=== PATIENT | female | born 1940 | race Caucasian/White ===

== ENCOUNTER → 2018-01-03 14:04 | Outpatient (CLI) | payer MEDICARE, SELFPAY ==
--- NOTE | 2018-01-03 | CI_ITS ---
Cerebrovascular Exam Indications: 780.4 Vertigo. 780.4 Dizziness and giddiness. IMPRESSIONS 1. The bilateral vertebral arteries are patent with normal antegrade flow. 2. Study suggests less than 20% stenosis involving the right internal carotid artery and the left internal carotid artery. Carotid duplex study. Complete study and Doppler flow study including spectral analysis, color and robertson scale imaging. Height: Height: 160cm. Height: 63in. Weight: Weight: 62.1kg. Weight: 136.7lb. Body mass index: BMI: 24.3kg/m^2. Body surface area: BSA: 1.67m^2. Location: Vascular laboratory. Patient status: Outpatient. Tables: Arterial flow: + +--------+--------+ Location V sys V ed + +--------+--------+ Right CCA - proximal 72.2cm/s 16cm/s + +--------+--------+ Right CCA - distal 56.2cm/s 15.4cm/s + +--------+--------+ Right ECA 69.1cm/s -------- + +--------+--------+ Right ICA - proximal 61.3cm/s 17.7cm/s + +--------+--------+ Right ICA - mid 68.1cm/s 18.8cm/s + +--------+--------+ Right ICA - distal 76.6cm/s 23.8cm/s + +--------+--------+ Right vertebral 54.2cm/s -------- + +--------+--------+ Left CCA - proximal 78.8cm/s 13.6cm/s + +--------+--------+ Left CCA - distal 49.3cm/s 10.8cm/s + +--------+--------+ Left ECA 66.2cm/s -------- + +--------+--------+ Left ICA - proximal 50.6cm/s 14cm/s + +--------+--------+ Left ICA - mid 65.8cm/s 20.3cm/s + +--------+--------+ Left ICA - distal 68.6cm/s 23.9cm/s + +--------+--------+ Left vertebral 63.8cm/s -------- + +--------+--------+ Velocity ratios: + + + + + + Right, V sys Right, V ed Left, V sys Left, V ed + + + + + + Max ICA/dist CCA 1.36 1.55 1.39 2.21 + + + + + + (Report amended ) Electronically signed by: Elvin Luna [id number]
== END ==
PROVIDERS: Family Provider Family Medicine; PCP Family Medicine; Visit Provider Family Medicine
DX: I10 Essential (primary) hypertension; G45.8 Other transient cerebral ischemic attacks and related syndromes
CPT/HCPCS: 93880

== ENCOUNTER → 2018-06-09 14:28 | Outpatient (CLI) | payer MEDICARE, SELFPAY ==
--- NOTE | 2018-06-09 14:33 | XR_ITS ---
XR chest 2V HISTORY: ITS.REASON: DECREASED BREATH SOUNDS ORDERING PHYSICIAN: Malini Espitia MD PATIENT AGE: 77 years COMPARISON: 07/19/2014 FINDINGS: The cardiomediastinal silhouette and pulmonary vascularity are within normal limits. The lungs are clear without infiltrates, suspicious nodules, or pleural effusions. No acute bony abnormalities. 12 mm opacity once again noted over the mid thoracic spine unchanged IMPRESSION: No change with no acute finding
== END ==
PROVIDERS: PCP Family Medicine; Visit Provider Emergency Medicine
DX: R06.89 Other abnormalities of breathing (principal)
CPT/HCPCS: 71046

== ENCOUNTER → 2018-09-26 13:06 | Outpatient (CLI) | payer MEDICARE, SELFPAY ==
--- NOTE | 2018-09-26 13:26 | CT_ITS ---
CT sinus wo con CLINICAL INDICATION: ITS.REASON: FACIAL PAIN,SINUSITIS ORDERING PHYSICIAN: Edson Pendleton MD PATIENT AGE: 78 years COMPARISON: None TECHNIQUE:Axial images obtained with sagittal and coronal reformats. All CT scans at the facility use one or more dose reduction, viz: automated exposure control, ma/kV adjustment per patient size (including targeted exams where dose is matched to indication, i.e. head), or iterative reconstruction technique. FINDINGS: No sinus air-fluid level or significant paranasal sinus mucosal thickening is evident. There is mild mucosal thickening of the inferior wall the left maxillary sinus. The ostiomeatal units are patent. There is mild leftward nasal septal deviation. The frontal, ethmoid, right maxillary sinus and sphenoid sinuses have an unremarkable appearance. There are mild osteoarthritic changes of the right TMJ joint. No acute fracture or dislocation. No lytic changes evident. The orbits have an unremarkable appearance. Incidental note is made of bony exostosis of the hard palate i.e. torus palatinus. IMPRESSION: 1. Essentially unremarkable sinuses. 2. Mild leftward nasal septal deviation. 3. Mild right TMJ arthropathy. 4. Incidental torus palatinus
== END ==
PROVIDERS: PCP Family Medicine; Visit Provider Family Medicine
DX: J32.0 Chronic maxillary sinusitis (principal); R51 Headache
CPT/HCPCS: 70486

== ENCOUNTER → 2021-01-11 14:08 | Outpatient (CLI) | payer MEDICARE, SELFPAY ==
[2021-01-11 14:48] LABS: Basophils % 0.4 % (0.1-2.0); Eosinophils # 0.1 K/mm3 (0.0-0.4); Eosinophils % 2.5 % (0.1-12.0); Hematocrit 33.4 % (37.0-47.0); Hemoglobin 11.4 g/dL (12.2-16.2); Lymphocytes # 0.8 K/mm3 (0.7-4.5); Lymphocytes % 15.9 % (10-50); Mean Corpuscular HGB Conc 34.2 g/dL (31.8-35.4); Mean Corpuscular Hemoglobin 31.1 pg (27.0-31.2); Mean Corpuscular Volume 90.7 fl (81-99); Mean Platelet Volume 7.6 fl (7.4-10.4); Monocytes # 0.3 K/mm3 (0.1-1.0); Neutrophils # 3.9 K/mm3 (1.8-7.8); Neutrophils % 75.3 % (37.0-80.0); Platelet Count 237 K/mm3 (142-424); Red Blood Count 3.68 M/mm3 (4.20-5.40); Red Cell Distribution Width 14.2 % (11.5-17.5); White Blood Count 5.2 K/mm3 (4.8-10.8)
[2021-01-11 15:11] LABS: Chloride 106 mmol/L (98-107)
[2021-01-11 15:12] LABS: Potassium 4.3 mmoL/L (3.5-5.1); Sodium 140 mmol/L (136-145)
[2021-01-11 15:14] LABS: Blood Urea Nitrogen 30 mg/dl (7-17); Estimated Glomerular Filt Rate 33 ml/min (>60); GFR (African American) 40 ML/MIN (>60)
[2021-01-11 15:15] LABS: Alanine Aminotransferase 15 U/L (12-78); Albumin Level 4.2 g/dl (3.5-5.0); Albumin/Globulin Ratio 1.8 (1.1-1.8); Alkaline Phosphatase 44 U/L (38-126); Anion Gap 11.3 mEq/L (5-15); Aspartate Amino Transferase 27 U/L (14-36); Bilirubin,Total 0.3 mg/dl (0.2-1.3); Calcium 8.8 mg/dl (8.4-10.2); Carbon Dioxide 27 mmol/L (22.0-30.0); Globulin 2.3 g/dL (1.3-3.2); Glucose 111 mg/dl (74-100); Total Protein,Serum 6.5 g/dl (6.3-8.2)
[2021-01-11 15:50] LABS: Ferritin 13.4 ng/ml (11.1-264)
[2021-01-11 16:15] LABS: C-Reactive Protein 0.3 mg/L (0-4)
[2021-01-11 16:59] LABS: Vitamin B12 297 pg/mL (239-931)
[2021-01-16 13:16] LABS: Saccharomyces cerevisiae, IgA 224.5 Units (0.0-24.9); Saccharomyces cerevisiae, IgG 61.1 Units (0.0-24.9)
== END ==
PROVIDERS: Visit Provider Internal Medicine Gastroenterology
DX: K50.90 Crohn's disease, unspecified, without complications (principal); D64.9 Anemia, unspecified; R10.32 Left lower quadrant pain
CPT/HCPCS: 36415; 80053; 82607; 82728; 85025; 86140; 86256; 86671

== ENCOUNTER → 2021-03-27 11:21 | Outpatient (CLI) | payer MEDICARE, SELFPAY | PROVIDERS: PCP Family Medicine; Visit Provider Family Medicine | DX: Z20.822 Contact with and (suspected) exposure to COVID-19 (principal) | CPT/HCPCS: C9803; U0003; U0005 ==

== ENCOUNTER → 2021-04-20 13:45 | Outpatient (CLI) | payer MEDICARE, SELFPAY ==
[2021-04-20 14:02] LABS: Basophils # 0.1 K/mm3 (0-0.2); Eosinophils # 0.1 K/mm3 (0.0-0.4); Eosinophils % 2.8 % (0.1-12.0); Hematocrit 34.5 % (37.0-47.0); Hemoglobin 11.2 g/dL (12.2-16.2); Lymphocytes # 0.7 K/mm3 (0.7-4.5); Lymphocytes % 14.7 % (10-50); Mean Corpuscular HGB Conc 32.4 g/dL (31.8-35.4); Mean Corpuscular Hemoglobin 31.5 pg (27.0-31.2); Mean Corpuscular Volume 97.4 fl (81-99); Mean Platelet Volume 9.1 fl (7.4-10.4); Monocytes # 0.3 K/mm3 (0.1-1.0); Monocytes % 6.4 % (1.7-9.3); Neutrophils # 3.7 K/mm3 (1.8-7.8); Neutrophils % 75.2 % (37.0-80.0); Platelet Count 256 K/mm3 (142-424); Red Blood Count 3.55 M/mm3 (4.20-5.40)
[2021-04-20 14:43] LABS: Chloride 105 mmol/L (98-107); Sodium 139 mmol/L (136-145)
[2021-04-20 14:44] LABS: Potassium 4.3 mmoL/L (3.5-5.1)
[2021-04-20 14:46] LABS: Alanine Aminotransferase 14 U/L (12-78); Albumin Level 3.8 g/dl (3.5-5.0); Albumin/Globulin Ratio 1.7 (1.1-1.8); Alkaline Phosphatase 52 U/L (38-126); Anion Gap 11.3 mEq/L (5-15); Aspartate Amino Transferase 24 U/L (14-36); Blood Urea Nitrogen 22 mg/dl (7-17); Carbon Dioxide 27 mmol/L (22.0-30.0); Estimated Glomerular Filt Rate 39 ml/min (>60); GFR (African American) 47 ML/MIN (>60); Globulin 2.3 g/dL (1.3-3.2); Total Protein,Serum 6.1 g/dl (6.3-8.2)
[2021-04-20 14:47] LABS: Bilirubin,Total < 0.1 mg/dl (0.2-1.3); Calcium 8.8 mg/dl (8.4-10.2); Glucose 93 mg/dl (74-100)
[2021-04-20 14:55] LABS: C-Reactive Protein < 0.3 mg/L (0-4)
[2021-04-20 14:56] LABS: Total Iron Binding Capacity 573 ug/dL (265-497)
[2021-04-20 15:22] LABS: Ferritin 5.85 ng/ml (11.1-264)
[2021-04-20 16:21] LABS: Vitamin B12 898 pg/mL (239-931)
== END ==
PROVIDERS: Visit Provider Internal Medicine Gastroenterology
DX: K50.90 Crohn's disease, unspecified, without complications (principal); D64.9 Anemia, unspecified
CPT/HCPCS: 36415; 80053; 82607; 82728; 83550; 85025; 86140

== ENCOUNTER → 2021-07-24 10:30 | Outpatient (CLI) | payer MEDICARE, SELFPAY | PROVIDERS: PCP Family Medicine; Visit Provider Nurse Practitioner | DX: Z20.822 Contact with and (suspected) exposure to COVID-19 (principal) | CPT/HCPCS: C9803; U0003; U0005 ==

== ENCOUNTER → 2021-09-06 13:31 | Outpatient (CLI) | payer MEDICARE, SELFPAY | PROVIDERS: PCP Family Medicine; Visit Provider Nurse Practitioner | DX: Z20.822 Contact with and (suspected) exposure to COVID-19 (principal) | CPT/HCPCS: C9803; U0003; U0005 ==

== ENCOUNTER → 2022-05-15 14:42 | Outpatient (POV) | payer MEDICARE, SELFPAY | PROVIDERS: Visit Provider Dermatology | DX: Z00.00 Encounter for general adult medical examination without abnormal findings (principal) ==

== ENCOUNTER 2022-10-23 15:00 | Outpatient (RCR) | payer MEDICARE, SELFPAY ==
--- NOTE | 2022-09-26 16:50 | HMH.PTOPEV ---
PT Outpatient Evaluation Rehab PT Outpatient Evaluation Start: 09/26/22 16:32 Freq: Status: Active Protocol: Document 09/26/22 16:32 IVY (Rec: 09/26/22 16:50 IVY [id number]) E-signed By Jonnie Styles, PT Outpatient Therapy Subjective History Subjective History Patient is an 82 year old female presenting to outpatient PT with reports of L posterior hip/buttock pain that radiates to the L anterior thigh and ankle. Symptom onset 08/22/22 while performing overhead reaching/ lifting activities at the grocery store. She has received previous injections x 2 that have provided some significant relief. Patient reports symptoms are worse at night. Comorbidities include hx of HTN, HL, chrons diseases with multiple small and large intestine resection surgeries , tuberculosis and cholecystectomy. Chief Complaint Pain Symptom Type Ache,Shooting Symptoms Relieved By Heat,Prescription Meds Symptoms Aggravated By Sitting,Standing,Bending/ Stooping,Physical Activity, Walking,Lifting Prior Functional Limitations None Current Functional Limitations Reaching,Lifting,Housework, Standing,Walking,Bending/ Stooping Symptom Description Constant but Variable Level of pain today (0-10) 5 Pain scale - at its best (0-10) 3 Pain scale - at its worst (0-10) 5 Hip/Knee Eval Gait Observation General Gait Pattern Observation No Deviations/Normal Palpation Tenderness left Knee Palpation Overall Comment Posterior hip/buttock mm, greater trochanter 3/4 Hip Palpation Findings Tenderness MMT Hip Flexion Strength Grade 4 Good Hip Abduction Strength Grade 4 Good Hip Adduction Strength Grade 5 Normal Hip Extension Strength Grade 5 Normal Hip External Rotation Strength Grade 4- Good- Hip Internal Rotation Strength Grade 4- Good- Knee Extension Strength Grade 5 Normal Knee Flexion Strength Grade 5 Normal ROM Hip Flexion w/Knee Extended Active Range 92 of Motion (degrees) Hip Abduction Active Range of Motion ( 38 degrees) Hip Extension Active
== END 2022-10-23 15:05 | disposition home or self-care (01) ==
LOC: PT 15:00
PROVIDERS: PCP Family Medicine; Visit Provider Physician Assistant
DX: G57.02 Lesion of sciatic nerve, left lower limb (principal)
CPT/HCPCS: 97010; 97014; 97110; 97163; G0283

== ENCOUNTER → 2023-05-22 16:09 | Outpatient (CLI) | payer MEDICARE, SELFPAY ==
[2023-05-22 16:46] LABS: Basophils % 0.5 % (0.1-2.0); Eosinophils # 0.2 K/mm3 (0.0-0.4); Eosinophils % 3.4 % (0.1-12.0); Hematocrit 35.1 % (37.0-47.0); Hemoglobin 11.8 g/dL (12.2-16.2); Lymphocytes # 0.8 K/mm3 (0.7-4.5); Mean Corpuscular HGB Conc 33.8 g/dL (31.8-35.4); Mean Corpuscular Hemoglobin 32.1 pg (27.0-31.2); Mean Corpuscular Volume 95.2 fl (81-99); Mean Platelet Volume 7.7 fl (7.4-10.4); Monocytes # 0.2 K/mm3 (0.1-1.0); Monocytes % 4.6 % (1.7-9.3); Neutrophils # 3.4 K/mm3 (1.8-7.8); Neutrophils % 74.5 % (37.0-80.0); Platelet Count 261 K/mm3 (142-424); Red Blood Count 3.68 M/mm3 (4.20-5.40); Red Cell Distribution Width 13.7 % (11.5-17.5); White Blood Count 4.6 K/mm3 (4.8-10.8)
[2023-05-22 17:05] LABS: Chloride 105 mmol/L (98-107); Potassium 3.8 mmoL/L (3.5-5.1); Sodium 140 mmol/L (136-145)
[2023-05-22 17:08] LABS: Alanine Aminotransferase 20 U/L (12-78); Albumin Level 4.2 g/dl (3.5-5.0); Albumin/Globulin Ratio 1.8 (1.1-1.8); Alkaline Phosphatase 43 U/L (38-126); Anion Gap 11.8 mEq/L (5-15); Aspartate Amino Transferase 29 U/L (14-36); Bilirubin,Total 0.1 mg/dl (0.2-1.3); Blood Urea Nitrogen 26 mg/dl (7-17); Calcium 8.7 mg/dl (8.4-10.2); Carbon Dioxide 27 mmol/L (22.0-30.0); Estimated Glomerular Filt Rate 31 ml/min (>60); GFR (African American) 37 ML/MIN (>60); Globulin 2.3 g/dL (1.3-3.2); Glucose 89 mg/dl (74-100); Iron 94 ug/dL (37-170); Total Protein,Serum 6.5 g/dl (6.3-8.2)
[2023-05-22 17:17] LABS: Total Iron Binding Capacity 532 ug/dL (265-497)
== END ==
PROVIDERS: PCP Family Medicine; Visit Provider Internal Medicine Medical Oncology
DX: D50.8 Other iron deficiency anemias (principal)
CPT/HCPCS: 36415; 80053; 83540; 83550; 85025

== ENCOUNTER 2024-05-20 09:14 | Outpatient (POV) | payer MEDICARE, SELFPAY | END 2024-05-20 23:59 | disposition home or self-care (01) | LOC: SC 09:15 | PROVIDERS: Visit Provider Dermatology | DX: Z00.00 Encounter for general adult medical examination without abnormal findings (principal) ==

== ENCOUNTER 2024-07-09 10:48 | Outpatient (CLI) | payer MEDICARE, SELFPAY ==
--- NOTE | 2024-07-09 10:59 | CA_ITS ---
FINAL REPORT TECHNIQUE: Multiple transverse and longitudinal images were performed of the right femoral-popliteal deep venous system with augmentation and compression maneuvers. CLINICAL HISTORY: Right thigh pain and edema for several weeks, no known injury COMPARISON: None FINDINGS: Right lower extremity duplex ultrasound demonstrates normal flow in the deep venous system. There is no abnormal echogenicity to suggest thrombus. There is normal compression and augmentation. There is a cystic lesion in the right popliteal fossa measuring 2.7 cm. IMPRESSION: No evidence of right DVT. Reviewed, Interpreted and Dictated by Luis Alfredo Peralta MD Transcribed by Precious Jama Authenticated and [facility]
== END 2024-07-09 23:59 | disposition home or self-care (01) ==
LOC: RT 10:49
PROVIDERS: PCP Family Medicine; Visit Provider Family Medicine
DX: M79.89 Other specified soft tissue disorders (principal); M79.651 Pain in right thigh
CPT/HCPCS: 93971

== ENCOUNTER 2025-01-19 15:36 | Outpatient (CLI) | payer MEDICARE, SELFPAY ==
--- OUTSIDE RECORDS SUMMARY | 2024-12-29 09:50 | XMS_ITS ---
Author Organization [facility] Address [address] [place] [id number] Care Team Providers Care Color Receiver Name Role Phone Unique Pendleton Primary Care Provider Allergies Allergen (clinical drug ingredient) Drug/Non Drug [...] Lab: Notes/Report: Test performed by [facility], [address] , [address], [place] [address] Sawyer Hyman MD, Experiential Therapist CLIA: [id number] Vitamin B12 178 810-0336 pg/mL P-Comprehensive Metabolic Pa lyndsey (CMP) Reviewed date:01/03/2025 10:10:06 PM Interpretation:GFR 39 Performing Lab: Notes/Report: Test performed by [facility] [address] , [address], [place] [address] Sawyer Hyman MD, Experiential Therapist CLIA: [id number] Sodium 143 135-145 mmol/L Potassium 4.0 3.5-5.3 [...] Interpretation:1.4 Performing Lab: Notes/Report: Test performed by [facility] [address] , [address], [place] [address] Sawyer Hyman MD, Experiential Therapist CLIA: [id number] Magnesium 1.4 1.6-2.4 mg/dL P-TSH Reviewed date:01/03/2025 10:10:06 PM Interpretation:3.24 Performing Lab: Notes/Report: Test performed by [facility] [address] , [address], [place] [address] Sawyer Hyman MD, Experiential Therapist CLIA: [id number] TSH 3.24 0.43-5.25 mU/L REASON FOR VISIT [...] Status W/U Status Risk Notes Problem Paresthesia (R20.2) Active confirmed Problem Iron deficiency anemia (14883196) Iron deficiency anemia (D50.9) Active confirmed Vital Signs Weight 122 lbs 12/29/2024 Blood pressure systolic 164 mm Hg 12/30/19 25 Blood pressure diastolic 68 mm Hg 025 Heart Rate 82 /min 12/29/2024 Height 64 in 12/29/2024 BMI 20.94 kg/m2 12/29/2024 Encounters Encounter Location Date Provider Diagnosis [facility] [address] [place], [place] [id number] 12/29/2024 Unique Pendleton Adult general medica l [...] Up: 6 Months, Reason: Provider Name:Unique Arias, 01/19/2025 03:15:00 PM, [address] [facility], [address], [place], [place], [id number], Progress Notes * PARVIN MALONEDOB:1940 (84 yo F)Acc No.nb bmDOS:12/29/2024 Annual Wellness Visit Patient: PARVIN CHAIREZ Account Number:nb bm Provider: Unique Pendleton M.D. :1940 A ge:84 Y S ex:Female Date:12/29/2024 Address[address] [place] [id number] Subjective: * Chief Complaints: * 1 . [...] low magnesium diagnosed by her consultants in [place]. She tried taking a magnesium supplement but [...] * Hospitalization/Major Diagno stic Procedure: H ypertension- [facility] ER 12/28/2017. * Family History: F ather: [...] the past 12 months. D epression Screening: Sandy feliciano depressed mood or anxiety. Describes emotional health as: calm. B ladder Control Screening: Sandy feliciano problems. Assessment: * Assessment: 1. A dult general medical examination - Z00.00 (Primary) 2 . P aresthesia - R20.2 3 . I imelda deficiency anemia - D50.9 4 . L eg edema - R60.0 5 . P ulmonary fibrosis - J84.10 6 . A nxiety - F41.9 7. C rohn disease - K50.90 8 . B [place] 20.0-20.9, adult - Z68.20 9 . O [...] PM)?464* Value Reference Range V itamin B12 286 264-6340 - pg/mL * Unique Pendleton 01/03/2025 10:09:44 [...] NON-USER, 3017F COLORECTAL CA SCREEN DOC REV, 21457 CBC WITH AUTO DIFF, G8510 NEG SCR [...] * Images: Billing Information: * Visit Code: 82289 Office Visit, Est Pt., Level 3. Modifiers: 25 * Procedure Codes: G0439 ANNUAL WELLNESS VST; PPS SUBSQT VST. G2211 Complex e/m visit add on. 1090F PRES/ABSN URINE INCON ASSESS. 3288F FALL RISK ASSESSMENT DOCD. 1170F FXNL STATUS ASSESSED. 1159F MED LIST DOCD IN RCRD. 1003F LEVEL OF ACTIVITY ASSESS. 1036F TOBACCO NON-USER. 3017F COLORECTAL CA SCREEN DOC REV. 75060 CBC WITH AUTO DIFF. G8510 NEG SCR Depression PT NOT ELIG F/U/PLN DOC. G8420 BMI<30 AND >=22 CALC & DOCU. G8950 PREHTN/HTN BP DOC INDCD F/U DOC. G8753 MOST RECENT SYSTOLIC BP >= 140MM HG. G8754 MOST RECENT DIASTOLIC BP < 90MM HG. * Electronic signature of Unique Pendleton MD on 01/19/2025 at 03:39 PM EDT Sign off status: Pending * Provider: Unique Pendleton M.D. Date: 0 12/29/2024 Generated for Osmar gilbert/Nicolle/Crystalitting on: 0 01/19/2025 03:39 PM EDT History and Physical Notes * HPI (History of Present Illness) Category Sub-Category Detail Notes Category Not es Cardiology Short of Breath She has a hi story of low magnesium diagnosed by her consultants in [place]. She tried taking a magnesium supplement but [...]
--- OUTSIDE RECORDS SUMMARY | 2025-01-11 09:20 | XMS_ITS ---
Author Organization [facility] Address [address] [facility] [address] [facility] [address] [place] [phone] Care Team Providers Care Perinatal Tech Name Role Phone Unique Pendleton Primary Care Provider [phone] Daniel Keys [phone] REASON FOR VISIT B 12 INJECTION Encounters Encounter Location Date Provider Diagnosis [facility] [address] [facility] [address] [facility] [address] [place] [phone] 01/11/2025 Daniel Keys Vitamin B 12 deficie ncy E53.8 Assessments Encounter Date Diagnosis (ICD Code) Assessment Notes Treatment Notes Treatment Clinical Notes Section Notes 01/11/2025 Vitamin B 12 deficiency (ICD-10 - E53.8) Plan Of Treatment Next Appt Details Provider Name:Unique Arias, 01/19/2025 03:15:00 PM, [address] [facility] [address] [facility], [address], [place], [id number], Medications Administered Medication Instructions Date of Administration Dosage Notes B-12 01/11/2025 1 mL Progress Notes * PARVIN MALONEDOB:1940 (84 yo F)Acc No.nb bmDOS:01/11/2025 Patient: Emelyn GALINDONATHANIEL ALMEIDAPARVIN Account Number:nb bm Provider: Dominik Keys M.D. :1940 A ge:84 Y S ex:Female Date:01/11/2025 Address[address], [place] Pcp:Unique Pendleton Subjective: * Chief Complaints: * 1 . B 12 INJECTION. * Medical History: Objective: * Vitals: Assessment: * Assessment: 1. V itamin B 12 deficiency - E53.8 (Primary) Plan: * Treatment: * Therapeutic Injections: B-12 : 1 mL (Route: Intramuscular) given by JAMAR Willoughby on left gluteus (Vitamin B 12 deficiency) * Procedure Codes: J 3420 B-12, 74546 ADMINISTRATION OF INJECTION * Images: Billing Information: * Visit Code: * Procedure Codes: J3420 B-12. 04571 ADMINISTRATION OF INJECTION. * Electronic signature of Milena Keys MD on 01/19/2025 at 03:38 PM EDT Sign off status: Pending * Provider: Dominik Keys M.D. Date: 0 01/11/2025 Generated for Osmar gilbert/Nicolle/Arthur on: 0 01/19/2025 03:38 PM EDT
--- OUTSIDE RECORDS SUMMARY | 2025-01-19 15:38 | XMS_ITS | Encounter Summary ---
Author Organization [facility] Address [address] [place] [address] Care Team Providers Care Research Programmer Name Role Phone System, Provider Not In MD Primary Care Provider Unavailable Sal Mar MD Unavailable [phone] Edson Pendleton MD Primary Care Provider [phone] Encounter Details Date Type Department Care Team (Late st Contact Info) Description 01/03/2022 Orders Only [facility] @ [facility] [address] [place] [address] Fidel Vasquez MD [address], [place] [id number] Social History Tobacco Use Types Packs/Day Years Used Date Smoking Tobacco: Never Assessed Comments Unknown Sex and Gender Information Value Date Recorded Sex Assigned at Female 06/10/2023 9:48 PM EST Legal Sex Female 7:40 PM EDT Gender Identity Female 06/10/2023 9:48 PM EST Sexual Orientation Straight 06/10/2023 9: 48 PM EST documented as of this encounter Plan of Treatment Not on file documented as of this encounter Procedures Procedure Name Priority Date/Time Associated Diagnosis Comments FERRITIN, SERUM Routine 01/03/2022 4:15 PM EDT documented in this encounter Results * (ABNORMAL) Ferritin, Serum (01/03/2022 4:15 PM EDT) External Ferritin 169(H) 13 - 157 ng/mL [facility] 01/03/2022 4:15 PM EDT 01/03/2022 5:13 PM EDT us Fidel Vasquez MD LAB BLOOD ORDERABLES Final R esult [facility] [address] [place] [address], documented in this encounter Visit Diagnoses Not on filedocumented in this encounter Care Teams Research Programmer Relationship Specialty Start Date End Date System, Provider Not In, [address] [place] [address] PCP - General Family Medicine 07/15/21 10/20/23 Edson Pendleton MD [address] [place] [address] PCP - General 10/21/23 Sal Mar MD [address] [place] [address] Medical Oncologist Hematology and Oncology 10/16/23 documented as of this encounter
--- OUTSIDE RECORDS SUMMARY | 2025-01-19 15:38 | XMS_ITS | Encounter Summary ---
Author Organization [facility] Address [address] [place] [address] Care Team Providers Care Gyroscope Repairer Name Role Phone System, Provider Not In MD Primary Care Provider Unavailable Sal Mar MD Unavailable [phone] Edson Pendleton MD Primary Care Provider [phone] Encounter Details Date Type Department Care Team (Late st Contact Info) Description 08/10/2021 Orders Only [facility] @ [facility] [address] [place] [address] Fidel Vasquez MD [address] [place], [place] [phone] Social History Tobacco Use Types Packs/Day Years [...] Procedure Name Priority Date/Time Associated Diagnosis Comments CBC WITH AUTO DIFFERENTIAL Routine 08/10/2021 2:45 PM EST documented in this encounter Results * (ABNORMAL) CBC and Differential (08/10/2021 2:45 PM EST) External WBC 5.0 3.8 - 10.8 K/uL [facility] External Red Blood Cell (RBC) 3.57(L) 3.80 - 5.20 M/uL [facility] External Hemoglobin 10.7(L) 12.0 - 16.0 G/DL [facility] External Hematocrit 31.8(L) 35.0 - 47.0 % [facility] External MCV 89 80 - 100 fL [facility] External MCH 30 26 - 35 PG [facility] External MCHC 34 32 - 36 G/DL [facility] External RDW 15.3(H) 11.0 - 15.0 % [facility] External Mean Platelet Volume 8.0 6.2 - 10.5 fL [facility] External Platelets 278 130 - 400 K/uL [facility] External Neutrophil# 3.6 1.6 - 8.4 K/uL [facility] External Lymphocyte# 0.8 0.4 - 5.1 K/uL [facility] External Absolute Monocyte (Abs Clinch) 0.4 0.0 - 1.2 K/uL [facility] External Eosinophils# 0.1 0.0 - 0.8 K/uL [facility] External Baso# 0.1 0.0 - 0.3 K/uL [facility] External Neutrophils % 72.9 42.0 - 78.0 % [facility] External Lymphocyte % 15.6 11.0 - 47.0 % [facility] External Monocyte % 8.0 0.0 - 11.0 % [facility] External Eosinophil% 2.4 0.0 - 7.0 % [facility] External Basophil % 1.1 0.0 - 3.0 % [facility] External Nucleated RBC%-Auto 0.0 0.0 - 0.9 % [facility] External Nucleated RBC Absolute 0.00 Not Estab. K/uL [facility] 08/10/2021 2:45 PM EST 08/10/2021 7:49 PM EST us Fidel Vasquez MD LAB BLOOD ORDERABLES Final R esult [facility] [address] [place] [address], documented in this encounter Visit Diagnoses Not on filedocumented in this encounter Care Teams Gyroscope Repairer Relationship Specialty Start Date End Date System, Provider Not In, [address] [place] [address] PCP - General Family Medicine 07/15/21 10/20/23 Edson Pendleton MD [address] [place] [address] PCP - General 10/21/23 Sal Mar MD [address] [place] [address] Medical Oncologist Hematology and Oncology 10/16/23 documented as of this encounter
--- OUTSIDE RECORDS SUMMARY | 2025-01-19 15:38 | XMS_ITS | Encounter Summary ---
Author Organization [facility] Address [address] [place] [address] Care Team Providers Care Safety Technician Name Role Phone System, Provider Not In MD Primary Care Provider Unavailable Sal Mar MD Unavailable [phone] Edson Pendleton MD Primary Care Provider [phone] Encounter Details Date Type Department Care Team (Late st Contact Info) Description 08/10/2021 Orders Only [facility] @ [facility] [address] [place] [address] Fidel Vasquez MD [address], [place] [id number] Social History Tobacco Use Types Packs/Day Years [...] Procedure Name Priority Date/Time Associated Diagnosis Comments PROTHROMBIN TIME(PT) / INR Routine 08/10/2021 2:45 PM EST documented in this encounter Results * (ABNORMAL) Prothrombin Time/INR (08/10/2021 2:45 PM EST) External Prothrombin Time (PT) 9.6 9.0 - 11.4 SECONDS [facility] External INR - Internormal Ratio 0.9(L) 2.0 - 3.0 [facility] Comment: INR OF 2.0 TO 3.0 RECOMMENDED FOR: PROPHYLAXIS AND TREATMENT OF VENOUS THROMBOSIS TREATMENT OF PULMONARY EMBOLISM PREVENTION OF SYSTEMIC EMBOLISM TISSUE HEART VALVES, VALVULAR HEART DISEASE ACUTE MYOCARDIAL INFARCTION, ATRIAL FIBRILLATION INR OF 2.5 TO 3.5 RECOMMENDED FOR: RECURRENT SYSTEMIC EMBOLISM MECHANICAL PROSTHETIC VALVES 08/10/2021 2:45 PM EST 08/10/2021 7:49 PM EST us Fidel Vasquez MD LAB BLOOD ORDERABLES Final R esult [facility] [address] [place] [address], documented in this encounter Visit Diagnoses Not on filedocumented in this encounter Care Teams Safety Technician Relationship Specialty Start Date End Date System, Provider Not In, [address] [place] [address] PCP - General Family Medicine 07/15/21 10/20/23 Edson Pendleton MD [address] [place] [address] PCP - General 10/21/23 Sal Mar MD [address] [place] [address] Medical Oncologist Hematology and Oncology 10/16/23 documented as of this encounter
--- OUTSIDE RECORDS SUMMARY | 2025-01-19 15:38 | XMS_ITS | Encounter Summary ---
Author Organization [facility] Address [address] [place] [address] Care Team Providers Care Grinding Wheel Facer Name Role Phone System, Provider Not In MD Primary Care Provider Unavailable Sal Mar MD Unavailable [phone] Edson Pendleton MD Primary Care Provider [phone] Encounter Details Date Type Department Care Team (Late st Contact Info) Description 11/08/2022 Orders Only [facility] at [facility] [address] [place] [address] Sal Mar MD [address] [phone] Social History Tobacco Use Types Packs/Day Years [...] Procedure Name Priority Date/Time Associated Diagnosis Comments COMPREHENSIVE METABOLIC PANEL, PLASMA Routine 11/08/2022 12:45 PM EDT documented in this encounter Results * (ABNORMAL) Comprehensive Metabolic Panel, Plasma (11/08/2022 12:45 PM EDT) External Glucose 93 74 - 100 mg/dL [facility] External BUN 27(H) 6 - 20 mg/dL [facility] External Creatinine Blood 1.39(H) 0.50 - 0.95 mg/dL [facility] External BUN/Creat Ratio 19 10 - 20 (calc) [facility] External Sodium 141 136 - 145 mmol/L [facility] External Potassium 4.3 3.4 - 5.0 mmol/L [facility] External Chloride 105 98 - 107 mmol/L [facility] External Carbon Dioxide 24 22 - 31 mmol/L [facility] External Anion Gap (AG) 12 7 - 25 (calc) [facility] External Calcium 8.4(L) 8.6 - 10.2 mg/dL [facility] External Total Protein 5.9(L) 6.4 - 8.3 g/dL [facility] External Albumin 3.7 3.5 - 5.2 g/dL [facility] External Globulin 2.2 1.5 - 4.5 g/dL (calc) [facility] External Albumin/Globulin Ratio 1.7 1.1 - 2.5 (calc) [facility] External Bilirubin Total 0.2 0.1 - 1.2 mg/dL [facility] External Alkaline Phosphatase 45 30 - 121 U/L [facility] External AST (SGOT) 16 0 - 32 U/L [facility] External ALT (SGPT) 11 0 - 33 U/L [facility] External Estimated GFR 37(A) >=60 [facility] Comment: NOTE New calculation for GFR (CKD-EPI 2020) is formulated without race adjustment factors at the recommendation of the National Kidney Foundation and [place] [employer]ph[employer]. This calculation has not been validated in women. For pediatric patients refer to https://www.kidney.org/professionals/KDOQI/gfr_calculatorPed 11/08/2022 12:4 5 PM EDT 11/08/2022 12:54 PM EDT us Sal Mar MD LAB BLOOD ORDERABLES Final Res ult [facility] [address] [place] [address], documented in this encounter Visit Diagnoses Not on filedocumented in this encounter Care Teams Grinding Wheel Facer Relationship Specialty Start Date End Date System, Provider Not In, [address] [place] [address] PCP - General Family Medicine 07/15/21 10/20/23 Edson Pendleton MD [address] [place] [address] PCP - General 10/21/23 Sal Mar MD [address] [place], [place] [id number] Medical Oncologist Hematology and Oncology 10/16/23 documented as of this encounter
--- OUTSIDE RECORDS SUMMARY | 2025-01-19 15:38 | XMS_ITS | Encounter Summary ---
Author Organization [facility] Address [address] [place] [address] Care Team Providers Care X Ray Equipment Mechanic Name Role Phone System, Provider Not In MD Primary Care Provider Unavailable Sal aMr MD Unavailable [phone] Edson Pendleton MD Primary Care Provider [phone] Encounter Details Date Type Department Care Team (Late st Contact Info) Description 11/09/2021 Orders Only [facility] Center at [facility] [address] [place] [address] Sal Mar MD [address] [phone] Social History Tobacco Use Types Packs/Day Years [...] Diagnosis Comments CBC WITH AUTO DIFFERENTIAL Routine 11/09/2021 3:53 PM EDT documented in this encounter Results * (ABNORMAL) CBC and Differential (11/09/2021 3:53 PM EDT) External WBC 3.9 3.8 - 10.8 K/uL [facility] External Red Blood Cell (RBC) 3.18(L) 3.80 - 5.20 M/uL [facility] External Hemoglobin 9.5(L) 12.0 - 16.0 G/DL [facility] External Hematocrit 27.0(L) 35.0 - 47.0 % [facility] External MCV 85 80 - 100 fL [facility] External MCH 30 26 - 35 PG [facility] External MCHC 35 32 - 36 G/DL [facility] External RDW 15.0 11.0 - 15.0 % [facility] External Mean Platelet Volume 7.2 6.2 - 10.5 fL [facility] External Platelets 228 130 - 400 K/uL [facility] External Neutrophil# 2.9 1.6 - 8.4 K/uL [facility] External Lymphocyte# 0.6 0.4 - 5.1 K/uL [facility] External Absolute Monocyte (Abs [place]) 0.3 0.0 - 1.2 K/uL [facility] External Eosinophils# 0.1 0.0 - 0.8 K/uL [facility] External Baso# 0.0 0.0 - 0.3 K/uL [facility] External Neutrophils % 73.4 42.0 - 78.0 % [facility] External Lymphocyte % 16.4 11.0 - 47.0 % [facility] External Monocyte % 6.8 0.0 - 11.0 % [facility] External Eosinophil% 2.3 0.0 - 7.0 % [facility] External Basophil % 1.1 0.0 - 3.0 % [facility] External Nucleated RBC%-Auto 0.1 0.0 - 0.9 % [facility] External Nucleated RBC Absolute 0.00 Not Estab. K/uL [facility] 11/09/2021 3:53 PM EDT 11/09/2021 6:01 PM EDT us Sal Mar MD LAB BLOOD ORDERABLES Final Res ult [facility] [address] [place] [address], documented in this encounter Visit Diagnoses Not on filedocumented in this encounter Care Teams X Ray Equipment Mechanic Relationship Specialty Start Date End Date System, Provider Not In, [address] [place] [address] PCP - General Family Medicine 07/15/21 10/20/23 Edson Pendleton MD [address] [place] [address] PCP - General 10/21/23 Sal Mar MD [address] [place] [address] Medical Oncologist Hematology and Oncology 10/16/23 documented as of this encounter
--- OUTSIDE RECORDS SUMMARY | 2025-01-19 15:38 | XMS_ITS ---
Author Organization Unknown [facility] Start Date Provider Encounter for Check-up [id number] [facility]
--- OUTSIDE RECORDS SUMMARY | 2025-01-19 15:38 | XMS_ITS | Encounter Summary ---
Author Organization [facility] Address [address] [place] [address] Care Team Providers Care Rat Exterminator Name Role Phone System, Provider Not In MD Primary Care Provider Unavailable Sal Mar MD Unavailable [phone] Edson Pendleton MD Primary Care Provider [phone] Encounter Details Date Type Department Care Team (Late st Contact Info) Description 11/08/2022 Orders Only [facility] [address] [place] [address] Sal Mar MD [address] [phone] Social History Tobacco Use Types Packs/Day Years [...] Diagnosis Comments CBC WITH AUTO DIFFERENTIAL Routine 11/08/2022 12:45 PM EDT documented in this encounter Results * (ABNORMAL) CBC and Differential (11/08/2022 12:45 PM EDT) External WBC 4.3 3.8 - 10.8 K/uL [facility] External Red Blood Cell (RBC) 3.16(L) 3.80 - 5.20 M/uL [facility] External Hemoglobin 9.9(L) 12.0 - 16.0 G/DL [facility] External Hematocrit 29.0(L) 35.0 - 47.0 % [facility] External MCV 92 80 - 100 fL [facility] External MCH 31 26 - 35 PG [facility] External MCHC 34 32 - 36 G/DL [facility] External RDW 14.3 11.0 - 15.0 % [facility] External Mean Platelet Volume 7.2 6.2 - 10.5 fL [facility] External Platelets 206 130 - 400 K/uL [facility] External Neutrophil# 3.2 1.6 - 8.4 K/uL [facility] External Lymphocyte# 0.6 0.4 - 5.1 K/uL [facility] External Absolute Monocyte (Abs [place]) 0.4 0.0 - 1.2 K/uL [facility] External Eosinophils# 0.1 0.0 - 0.8 K/uL [facility] External Baso# 0.1 0.0 - 0.3 K/uL [facility] External Neutrophils % 74.1 42.0 - 78.0 % [facility] External Lymphocyte % 14.0 11.0 - 47.0 % [facility] External Monocyte % 8.2 0.0 - 11.0 % [facility] External Eosinophil% 2.5 0.0 - 7.0 % [facility] External Basophil % 1.2 0.0 - 3.0 % [facility] External Nucleated RBC%-Auto 0.0 0.0 - 0.9 % [facility] External Nucleated RBC Absolute 0.00 Not Estab. K/uL [facility] 11/08/2022 12:4 5 PM EDT 11/08/2022 12:53 PM EDT us Sal Mar MD LAB BLOOD ORDERABLES Final Res ult [facility] [address] [place] [id number], documented in this encounter Visit Diagnoses Not on filedocumented in this encounter Care Teams Rat Exterminator Relationship Specialty Start Date End Date System, Provider Not In, [address] [place] [address] PCP - General Family Medicine 07/15/21 10/20/23 Edson Pendleton MD [address] [place] [address] PCP - General 10/21/23 Sal Mar MD [address] [place] [address] Medical Oncologist Hematology and Oncology 10/16/23 documented as of this encounter
--- OUTSIDE RECORDS SUMMARY | 2025-01-19 15:38 | XMS_ITS | Encounter Summary ---
Author Organization [facility] Address [address] [place] [address] Care Team Providers Care Sausage Cutter Name Role Phone System, Provider Not In MD Primary Care Provider Unavailable Sal Mar MD Unavailable Edson Pendleton MD Primary Care Provider [phone] Encounter Details Date Type Department Care Team (Late st Contact Info) Description 08/10/2021 Orders Only [facility] @ [facility] [address] [place] [address] Fidel Vasquez MD [address] [place], [place] [id number] Social History Tobacco Use Types Packs/Day Years [...] Date/Time Associated Diagnosis Comments FERRITIN, SERUM Routine 08/10/2021 2:45 PM EST documented in this encounter Results * (ABNORMAL) Ferritin, Serum (08/10/2021 2:45 PM EST) External Ferritin 6(L) 13 - 157 ng/mL [facility] 08/10/2021 2:45 PM EST 08/10/2021 7:55 PM EST Fidel Vasquez MD LAB BLOOD ORDERABLES Final R esult [facility] [address] [place] [address], documented in this encounter Visit Diagnoses Not on filedocumented in this encounter Care Teams Sausage Cutter Relationship Specialty Start Date End Date System, Provider Not In, [address] [place] [address] PCP - General Family Medicine 07/15/21 10/20/23 Edson Pendleton MD [address] [place] [address] [address] [place] [address] PCP - General 10/21/23 Sal Mar MD [address] [place] [id number] Medical Oncologist Hematology and Oncology 10/16/23 documented as of this encounter
--- OUTSIDE RECORDS SUMMARY | 2025-01-19 15:38 | XMS_ITS | Encounter Summary ---
Author Organization [facility] Address [address] [place] [address] Care Team Providers Care Dictaphone Technician Name Role Phone System, Provider Not In MD Primary Care Provider Unavailable Sal Mar MD Unavailable [phone] Edson Pendleton MD Primary Care Provider [phone] Encounter Details Date Type Department Care Team (Late st Contact Info) Description 08/10/2021 Orders Only [facility] @ [facility] [address] [place] [address] Fidel Vasquez MD [address] [place], [place] [id number] Social History Tobacco Use Types Packs/Day Years [...] Procedure Name Priority Date/Time Associated Diagnosis Comments IRON & TOTAL IRON BINDING CAPACITY, PLASMA (INCLUDES TRANSFERRIN) Routine 08/10/2021 2:45 PM EST documented in this encounter Results * (ABNORMAL) Iron & Total Iron Binding Capacity, Plasma (Includes Transferrin) (08/10/2021 2:45 PM EST) External Iron 65 37 - 145 ug/dL [facility] External Total Iron Binding Capacity 555(H) 250 - 450 ug/dL (calc) [facility] External Unsaturated Iron Binding Capacity 490(H) 112 - 347 ug/dL [facility] External Iron-Saturation% 12(L) 15 - 50 % (calc) [facility] 08/10/2021 2:45 PM EST 08/10/2021 7:55 PM EST us Fidel Vasquez MD LAB BLOOD ORDERABLES Final R esult [facility] [address] [place] [address], documented in this encounter Visit Diagnoses Not on filedocumented in this encounter Care Teams Dictaphone Technician Relationship Specialty Start Date End Date System, Provider Not In, [address] [place] [address] PCP - General Family Medicine 07/15/21 10/20/23 Edson Pendleton MD [address] [place] [address] PCP - General 10/21/23 Sal Mar MD [address] [place] [id number] Medical Oncologist Hematology and Oncology 10/16/23 documented as of this encounter
--- OUTSIDE RECORDS SUMMARY | 2025-01-19 15:38 | XMS_ITS | Encounter Summary ---
Author Organization [facility] Address [address] [place] [address] Care Team Providers Care Senior Mechanical Design Engineer Name Role Phone System, Provider Not In MD Primary Care Provider Unavailable Sal Mar MD Unavailable [phone] Edson Pendleton MD Primary Care Provider [phone] Encounter Details Date Type Department Care Team (Late st Contact Info) Description 11/09/2021 Orders Only [facility] Center at [facility] [address] [place] [address] Sal Mar MD [address] [address] Social History Tobacco Use Types Packs/Day Years [...] Diagnosis Comments COMPREHENSIVE METABOLIC PANEL, PLASMA Routine 11/09/2021 3:53 PM EDT documented in this encounter Results * (ABNORMAL) Comprehensive Metabolic Panel, Plasma (11/09/2021 3:53 PM EDT) External Glucose 89 74 - 100 mg/dL [facility] External BUN 17 6 - 20 mg/dL [facility] External Creatinine Blood 1.47(H) 0.50 - 0.95 mg/dL [facility] External BUN/Creat Ratio 12 10 - 20 (calc) [facility] External Sodium 141 136 - 145 mmol/L [facility] External Potassium 3.7 3.4 - 5.0 mmol/L [facility] External Chloride 105 98 - 107 mmol/L [facility] External Carbon Dioxide 24 22 - 31 mmol/L [facility] External Anion Gap (AG) 12 7 - 25 (calc) [facility] External Calcium 8.9 8.6 - 10.2 mg/dL [facility] External Total Protein 6.5 6.4 - 8.3 g/dL [facility] External Albumin 4.3 3.5 - 5.2 g/dL [facility] External Globulin 2.2 1.5 - 4.5 g/dL (calc) [facility] External Albumin/Globulin Ratio 2.0 1.1 - 2.5 (calc) [facility] External Bilirubin Total 0.2 0.1 - 1.2 mg/dL [facility] External Alkaline Phosphatase 57 30 - 121 U/L [facility] External AST (SGOT) 27 0 - 32 U/L [facility] External ALT (SGPT) 17 0 - 33 U/L [facility] External EGFR (If AFR/AM) 38(A) >=60 [facility] External Estimated GFR 33(A) >=60 [facility] Comment: NOTE Chronic kidney disease is defined as kidney damage for more than 3 months or a GFR less than 60 mL/min/1.73 m2 for greater than 3 months. This calculation has not been validated in women. For pediatric patients refer to National Kidney Foundation https://www.kidney.org/professionals/KDOQI/gfr_calculatorPed 11/09/2021 3:53 PM EDT 11/09/2021 6:04 PM EDT Sal Mar MD LAB BLOOD ORDERABLES Final Res ult [facility] [address] [place] [address], documented in this encounter Visit Diagnoses Not on filedocumented in this encounter Care Teams Senior Mechanical Design Engineer Relationship Specialty Start Date End Date System, Provider Not In, [address] [place] [address] PCP - General Family Medicine 07/15/21 10/20/23 Edson Pendleton MD [address] [facility] [address] [place] [id number] PCP - General 10/21/23 Sal Mar MD [address] [place] [address] Medical Oncologist Hematology and Oncology 10/16/23 documented as of this encounter
--- OUTSIDE RECORDS SUMMARY | 2025-01-19 15:38 | XMS_ITS | Encounter Summary ---
Author Organization [facility] Address [address] [place] [address] Care Team Providers Care Sales Coordinator Name Role Phone System, Provider Not In MD Primary Care Provider Unavailable Sal Mar MD Unavailable [phone] Edson Pendleton MD Primary Care Provider [phone] Encounter Details Date Type Department Care Team (Late st Contact Info) Description 02/08/2022 Orders Only [facility] at [facility] [address] [place] [address] Sal Mar MD [address] [address] Social History Tobacco Use Types [...] Date/Time Associated Diagnosis Comments FERRITIN, SERUM Routine 02/08/2022 2:16 PM EDT documented in this encounter Results * Ferritin, Serum (02/08/2022 2:16 PM EDT) External Ferritin 94 13 - 157 ng/mL [facility] 02/08/2022 2:16 PM EDT 02/08/2022 2:34 PM EDT Sal Mar MD LAB BLOOD ORDERABLES Final Res ult [facility] [address] [place] [address], documented in this encounter Visit Diagnoses Not on filedocumented in this encounter Care Teams Sales Coordinator Relationship Specialty Start Date End Date System, Provider Not In, [address] [place] [address] PCP - General Family Medicine 07/15/21 10/20/23 Edson Pendleton MD [address] [place] [address] [address] [place] [address] PCP - General 10/21/23 Sal Mar MD [address] [place] [address] Medical Oncologist Hematology and Oncology 10/16/23 documented as of this encounter
--- OUTSIDE RECORDS SUMMARY | 2025-01-19 15:38 | XMS_ITS | Encounter Summary ---
Author Organization [facility] Address [address] [place] [address] Care Team Providers Care Senior Corporate Recruiter Name Role Phone System, Provider Not In MD Primary Care Provider Unavailable Sal Mar MD Unavailable [phone] Edson Pendleton MD Primary Care Provider [phone] Encounter Details Date Type Department Care Team (Late st Contact Info) Description 02/08/2022 Orders Only [facility] at [facility] [address] [place] [address] Sal Mar MD [address] [address] Social History Tobacco Use Types [...] IRON BINDING CAPACITY, PLASMA (INCLUDES TRANSFERRIN) Routine 02/08/2022 2:16 PM EDT documented in this encounter Results * Iron & Total Iron Binding Capacity, Plasma (Includes Transferrin) (02/08/2022 2:16 PM EDT) External Iron 116 37 - 145 ug/dL [facility] External Total Iron Binding Capacity 419 250 - 450 ug/dL (calc) [facility] External Unsaturated Iron Binding Capacity 303 112 - 347 ug/dL [facility] External Iron-Saturation% 28 15 - 50 % (calc) [facility] 02/08/2022 2:16 PM EDT 02/08/2022 2:34 PM EDT us Sal Mar MD LAB BLOOD ORDERABLES Final Res ult [facility] [address] [place] [address], documented in this encounter Visit Diagnoses Not on filedocumented in this encounter Care Teams Senior Corporate Recruiter Relationship Specialty Start Date End Date System, Provider Not In, [address] [place] [address] PCP - General Family Medicine 07/15/21 10/20/23 Edson Pendleton MD [address] [place] [address] PCP - General 10/21/23 Sal Mar MD [address] [place], [place] [id number] Medical Oncologist Hematology and Oncology 10/16/23 documented as of this encounter
--- OUTSIDE RECORDS SUMMARY | 2025-01-19 15:38 | XMS_ITS | Encounter Summary ---
Author Organization [facility] Address [address] [place] [address] Care Team Providers Care Major Gifts Manager Name Role Phone System, Provider Not In MD Primary Care Provider Unavailable Sal Mar MD Unavailable [phone] Edson Pendleton MD Primary Care Provider [phone] Encounter Details Date Type Department Care Team (Late st Contact Info) Description 11/08/2022 Orders Only [facility] at [facility] [address] [place] [address] Sal Mar MD [address] [phone] Social History Tobacco Use Types Packs/Day Years [...] Date/Time Associated Diagnosis Comments FERRITIN, SERUM Routine 11/08/2022 12:45 PM EDT documented in this encounter Results * (ABNORMAL) Ferritin, Serum (11/08/2022 12:45 PM EDT) External Ferritin 9(L) 13 - 157 ng/mL [facility] 11/08/2022 12:4 5 PM EDT 11/08/2022 12:54 PM EDT Sal Mar MD LAB BLOOD ORDERABLES Final Res ult [facility] [address] [place] [address], documented in this encounter Visit Diagnoses Not on filedocumented in this encounter Care Teams Major Gifts Manager Relationship Specialty Start Date End Date System, Provider Not In, [address] [place] [address] PCP - General Family Medicine 07/15/21 10/20/23 Edson Pendleton MD [address] [place] [address] PCP - General 10/21/23 Sal Mar MD [address] [place] [address] Medical Oncologist Hematology and Oncology 10/16/23 documented as of this encounter
--- OUTSIDE RECORDS SUMMARY | 2025-01-19 15:38 | XMS_ITS | Encounter Summary ---
Author Organization [facility] Address [address] [place] [address] Care Team Providers Care Mine Foreman Name Role Phone System, Provider Not In MD Primary Care Provider Unavailable Sal Mar MD Unavailable [phone] Edson Pendleton MD Primary Care Provider [phone] Encounter Details Date Type Department Care Team (Late st Contact Info) Description 01/08/2022 Orders Only [facility] @ [facility] [address] [place] [address] Fidel Vasquez MD [address] [place], [place] [id number] Social History Tobacco Use Types Packs/Day Years [...] Name Priority Date/Time Associated Diagnosis Comments COMPREHENSIVE GI PANEL BY PCR Routine 01/08/2022 12:38 PM EDT documented in this encounter Results * Comprehensive GI Panel by PCR (01/08/2022 12:38 PM EDT) EXTERNAL GI PANEL SEE BELOW [facility] External Campylobacter species by PCR Negative Negative [facility] External Clostridioides (Clostridium) Difficile Toxin Negative Negative [facility] External Plesiomonas shigelloides Negative Negative [facility] EXTERNAL SALMONELLA SPP Negative Negative [facility] External Vibrio Negative Negative [facility] External Vibrio cholerae Negative Negative [facility] EXTERNAL YERSINIA SPECIES Negative Negative [facility] External Enteroaggregative E. Coli Negative Negative [facility] External Enteropathogenic E. coli Negative Negative [facility] External Enterotoxigenic E. coli LT/ST Negative Negative [facility] External Bhtok-Ptfeo-Pchdhuwk g E. coli Negative Negative [facility] External Shigella/Enteroinvas sadiq E. coli Negative Negative [facility] EXTERNAL CRYPTOSPORIDIUM SPECIES Negative Negative [facility] External Cyclospora cayetanensis Negative Negative [facility] External Entamoeba histolytica Negative Negative [facility] External Giardia lamblia Negative Negative [facility] External Adenovirus F 40/41 Negative Negative [facility] External Astrovirus Negative Negative [facility] EXTERNAL NOROVIRUS GI/GII Negative Negative [facility] External Rotavirus Negative Negative [facility] External Sapovirus Negative Negative [facility] Comment: ADDITIONAL INFORMATION This assay is performed using the FDA-cleared FilmArray GI Panel ([employer] TEST PERFORMED AT: [facility] [address] [place] [id number] SAL HARRIS II, MD,PHD 01/08/2022 12:3 8 PM EDT 01/08/2022 12:45 PM EDT us Fidel Vasquez MD LAB MICROBIOLOGY - GENERAL O RDERABLES Final Result [facility] [address] [place] [address], documented in this encounter Visit Diagnoses Not on filedocumented in this encounter Care Teams Mine Foreman Relationship Specialty Start Date End Date System, Provider Not In, MD [address] [place] [address] PCP - General Family Medicine 07/15/21 10/20/23 Edson Pendleton MD [address] [facility] [address] [place] [address] PCP - General 10/21/23 Sal Mar MD [address] [place] [address] Medical Oncologist Hematology and Oncology 10/16/23 documented as of this encounter
--- OUTSIDE RECORDS SUMMARY | 2025-01-19 15:38 | XMS_ITS | Encounter Summary ---
Author Organization [facility] Address [address] [place] [address] Care Team Providers Care Radiophone Operator Name Role Phone System, Provider Not In MD Primary Care Provider Unavailable Sal Mar MD Unavailable [phone] Edson Pendleton MD Primary Care Provider [phone] Encounter Details Date Type Department Care Team (Late st Contact Info) Description 02/08/2022 Orders Only [facility] [address] [place] [address] Sal Mar MD [address] [address] Social History Tobacco Use Types [...] Diagnosis Comments COMPREHENSIVE METABOLIC PANEL, PLASMA Routine 02/08/2022 2:16 PM EDT documented in this encounter Results * (ABNORMAL) Comprehensive Metabolic Panel, Plasma (02/08/2022 2:16 PM EDT) External Glucose 106(H) 74 - 100 mg/dL [facility] External BUN 27(H) 6 - 20 mg/dL [facility] External Creatinine Blood 1.59(H) 0.50 - 0.95 mg/dL [facility] External BUN/Creat Ratio 17 10 - 20 (calc) [facility] External Sodium 141 136 - 145 mmol/L [facility] External Potassium 4.0 3.4 - 5.0 mmol/L [facility] External Chloride 103 98 - 107 mmol/L [facility] External Carbon Dioxide 26 22 - 31 mmol/L [facility] External Anion Gap (AG) 12 7 - 25 (calc) [facility] External Calcium 9.3 8.6 - 10.2 mg/dL [facility] External Total Protein 6.1(L) 6.4 - 8.3 g/dL [facility] External Albumin 4.1 3.5 - 5.2 g/dL [facility] External Globulin 2.0 1.5 - 4.5 g/dL (calc) [facility] External Albumin/Globulin Ratio 2.1 1.1 - 2.5 (calc) [facility] External Bilirubin Total 0.3 0.1 - 1.2 mg/dL [facility] External Alkaline Phosphatase 47 30 - 121 U/L [facility] External AST (SGOT) 19 0 - 32 U/L [facility] External ALT (SGPT) 13 0 - 33 U/L [facility] External Estimated GFR 32(A) >=60 [facility] Comment: NOTE New calculation for GFR (CKD-EPI 2020) is formulated without race adjustment factors at the recommendation of the National Kidney Foundation and [place] [employer]ph[employer]. This calculation has not been validated in women. For pediatric patients refer to https://www.kidney.org/professionals/KDOQI/gfr_calculatorPed 02/08/2022 2:16 PM EDT 02/08/2022 2:34 PM EDT us Sal Mar MD LAB BLOOD ORDERABLES Final Res ult [facility] [address] [place] [address], documented in this encounter Visit Diagnoses Not on filedocumented in this encounter Care Teams Radiophone Operator Relationship Specialty Start Date End Date System, Provider Not In, [address] [place] [address] PCP - General Family Medicine 07/15/21 10/20/23 Edson Pendleton MD [address] [place] [address] PCP - General 10/21/23 Sal Mar MD [address] [id number] Medical Oncologist Hematology and Oncology 10/16/23 documented as of this encounter
--- OUTSIDE RECORDS SUMMARY | 2025-01-19 15:38 | XMS_ITS | Encounter Summary ---
Author Organization [facility] Address [address] [place] [address] Care Team Providers Care Mental Health Consultant Name Role Phone System, Provider Not In MD Primary Care Provider Unavailable Sal Mar MD Unavailable [phone] Edson Pendleton MD Primary Care Provider [phone] Encounter Details Date Type Department Care Team (Late st Contact Info) Description 01/03/2022 Orders Only [facility] @ [facility] [address] [place] [address] Fidel Vasquez MD [address] [place], [place] [address] Social History Tobacco Use Types Packs/Day Years [...] Diagnosis Comments CBC WITH AUTO DIFFERENTIAL Routine 01/03/2022 4:15 PM EDT documented in this encounter Results * (ABNORMAL) CBC and Differential (01/03/2022 4:15 PM EDT) External WBC 4.1 3.8 - 10.8 K/uL [facility] External Red Blood Cell (RBC) 3.72(L) 3.80 - 5.20 M/uL [facility] External Hemoglobin 11.6(L) 12.0 - 16.0 G/DL [facility] External Hematocrit 33.4(L) 35.0 - 47.0 % [facility] External MCV 90 80 - 100 fL [facility] External MCH 31 26 - 35 PG [facility] External MCHC 35 32 - 36 G/DL [facility] External RDW 15.9(H) 11.0 - 15.0 % [facility] External Mean Platelet Volume 7.5 6.2 - 10.5 fL [facility] External Platelets 223 130 - 400 K/uL [facility] External Neutrophil# 3.0 1.6 - 8.4 K/uL [facility] External Lymphocyte# 0.7 0.4 - 5.1 K/uL [facility] External Absolute Monocyte (Abs [place]) 0.3 0.0 - 1.2 K/uL [facility] External Eosinophils# 0.1 0.0 - 0.8 K/uL [facility] External Baso# 0.0 0.0 - 0.3 K/uL [facility] External Neutrophils % 71.7 42.0 - 78.0 % [facility] External Lymphocyte % 16.1 11.0 - 47.0 % [facility] External Monocyte % 7.9 0.0 - 11.0 % [facility] External Eosinophil% 3.3 0.0 - 7.0 % [facility] External Basophil % 1.0 0.0 - 3.0 % [facility] External Nucleated RBC%-Auto 0.1 0.0 - 0.9 % [facility] External Nucleated RBC Absolute 0.00 Not Estab. K/uL [facility] 01/03/2022 4:15 PM EDT 01/03/2022 5:14 PM EDT us Fidel Vasquez MD LAB BLOOD ORDERABLES Final R esult [facility] [address] [id number], documented in this encounter Visit Diagnoses Not on filedocumented in this encounter Care Teams Mental Health Consultant Relationship Specialty Start Date End Date System, Provider Not In, [address] [place] [address] PCP - General Family Medicine 07/15/21 10/20/23 Edson Pendleton MD [address] [place] [address] PCP - General 10/21/23 Sal Mar MD [address] [place] [address] Medical Oncologist Hematology and Oncology 10/16/23 documented as of this encounter
--- OUTSIDE RECORDS SUMMARY | 2025-01-19 15:38 | XMS_ITS | Encounter Summary ---
Author Organization [facility] Address [address] [place] [address] Care Team Providers Care Property Specialist Name Role Phone System, Provider Not In MD Primary Care Provider Unavailable Sal Mar MD Unavailable [phone] Edson Pendleton MD Primary Care Provider [phone] Encounter Details Date Type Department Care Team (Late st Contact Info) Description 11/09/2021 Orders Only [facility] [address] [place] [address] Sal Mar MD [address] [id number] Social History Tobacco Use Types Packs/Day Years [...] Date/Time Associated Diagnosis Comments FERRITIN, SERUM Routine 11/09/2021 3:53 PM EDT documented in this encounter Results * (ABNORMAL) Ferritin, Serum (11/09/2021 3:53 PM EDT) External Ferritin 9(L) 13 - 157 ng/mL [facility] 11/09/2021 3:53 PM EDT 11/09/2021 6:04 PM EDT Sal Mar MD LAB BLOOD ORDERABLES Final Res ult [facility] [address] [place] [address], documented in this encounter Visit Diagnoses Not on filedocumented in this encounter Care Teams Property Specialist Relationship Specialty Start Date End Date System, Provider Not In, [address] [place] [address] PCP - General Family Medicine 07/15/21 10/20/23 Edson Pendleton MD [address] [place] [address] PCP - General 10/21/23 Sal Mar MD [address] [place] [address] Medical Oncologist Hematology and Oncology 10/16/23 documented as of this encounter
--- OUTSIDE RECORDS SUMMARY | 2025-01-19 15:38 | XMS_ITS | Encounter Summary ---
Author Organization [facility] Address [address] [place] [address] Care Team Providers Care Shell Maker Lockstitch Name Role Phone System, Provider Not In MD Primary Care Provider Unavailable Sal Mar MD Unavailable [phone] Edson Pendleton MD Primary Care Provider [phone] Encounter Details Date Type Department Care Team (Late st Contact Info) Description 01/08/2022 Orders Only [facility] @ [facility] [address] [place] [address] Fidel Vasquez MD [address] [place], [place] [id number] Social History Tobacco Use Types Packs/Day Years [...] Procedure Name Priority Date/Time Associated Diagnosis Comments CALPROTECTIN, FECAL BY IMMUNOASSAY (SO) Routine 01/08/2022 12:38 PM EDT documented in this encounter Results * Calprotectin, Fecal by Immunoassay (01/08/2022 12:38 PM EDT) External Calprotectin 30 mcg/g [facility] Comment: Reference Range: <50 Normal 50-120 Borderline >120 Elevated Calprotectin in Crohn's disease and ulcerative colitis can be five to several thousand times above the reference population (50 mcg/g or less). Levels are usually 50 mcg/g or less in healthy patients and with irritable bowel syndrome. Repeat testing in 4-6 weeks is suggested for borderline values. TEST PERFORMED AT: [facility] [facility] [address] [place] [address] LI CALERO MD,PHD,SEBLE 01/08/2022 12:3 8 PM EDT 01/08/2022 12:45 PM EDT Fidel Vasquez MD LAB BODY FLUIDS AND STOOLS O RDERABLES Final Result Performing Organization Address City/State/[facility] Co de Phone Number [facility] [address] [place] [address], documented in this encounter Visit Diagnoses Not on filedocumented in this encounter Care Teams Shell Maker Lockstitch Relationship Specialty Start Date End Date System, Provider Not In, [address] [place] [address] PCP - General Family Medicine 07/15/21 10/20/23 Edson Pendleton MD [address] [facility] [address] [place] [address] PCP - General 10/21/23 Sal Mar MD [address] [place] [address] Medical Oncologist Hematology and Oncology 10/16/23 documented as of this encounter
--- OUTSIDE RECORDS SUMMARY | 2025-01-19 15:38 | XMS_ITS | Clinical Summary ---
Author Organization [facility] Address [address] [place] [address] Care Team Providers Care Interior Specialist Name Role Phone Sal Mar MD Unavailable [phone] Edson Pendleton MD Primary Care Provider [phone] Allergies Active Allergy Reactions Criticality Noted Date Comments Clonidine Hallucinations,Unkno wn - Patient states they do not know rxn details Medium 08/12/2019 Corticotropin Other - please docum ent in the comment field Low 06/03/2006 Erythromycin Unknown - Patient st ates they do not know rxn details Low 06/03/2006 Iron Dextran Other - please docum ent in the comment field Medium 10/28/2023 Severe back pain, dizziness. Seen stars Penicillins Unknown - Patient st ates they do not know rxn details Low 12/28/2019 Streptomycin Other - please docum ent in the comment field,Unknown - Patient states they do not know rxn details Low 06/03/2006 Tetracycline Rash Low 06/03/2006 Medications amLODIPine-rosangela zepril (Lotrel) 10-20 MG capsule Take 1 capsule by mouth Daily. Active benazepril-hydr oCHLOROthiazide (Lotensin HCT) 20-12.5 MG tablet Take 1 tablet by mouth Daily. Active Multiple Vitamins-Minera ls (PRESERVISION AREDS PO) Active potassium chloride CR (KLOR-CON) 20 MEQ ER tablet 2 (two) times a day. Active fenofibrate (Tricor) 48 MG tablet 09/18/2023 Active fenofibrate (Tricor) 145 MG tablet 1 (one) time each day. Active Imuran 50 MG tablet 1 (one) time each day. 10/16/2022 Active Xanax 0.5 MG tablet PRN daily Active acetaminophen (Tylenol) 325 MG tablet if needed. Active Active Problems Problem Noted Date Diagnosed Date Iron deficiency 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 blood loss 10/23/2023 Crohn's disease of colon with complication 10/22 Chronic kidney disease 10/23/2023 Encounters Date Type Department Care Team Description 11/24/2024 Orders Only [facility] [address] [place] [phone] Fidel Vasquez MD 11/24/2024 Orders Only [facility] [address] [place] [address] Fidel Vasquez MD from Last 3 Months Family History Medical History Relation Name Comments Cancer Mother Hypertension Mother Stroke Mother Cancer Sister Relation Name Status Comments Mother Sister Social History Tobacco Use Types Packs/Day Years Used Date Smoking Tobacco: Former Cigarettes Q uit: 1976 Smokeless Tobacco: Never Comments Unknown Sex and Gender Information Value Date Recorded Sex Assigned at Female 06/10/2023 9:48 PM EST Legal Sex Female 7:40 PM EDT Gender Identity Female 06/10/2023 9:48 PM EST Sexual Orientation Straight 06/10/2023 9: 48 PM EST Last Filed Vital Signs Vital Sign Reading Time Taken Comments Blood Pressure 168/69 11/05/2023 1:14 PM EDT Pulse 82 11/05/2023 1:14 PM EDT Temperature 36.8 C (98.3 F) 11/05/2023 1:14 PM EDT Respiratory Rate 16 11/05/2023 1:14 PM EDT Oxygen Saturation 98% 11/05/2023 1:14 PM EDT Inhaled Oxygen Concentration - - Weight 59.8 kg (131 lb 13.4 oz) 10/28/2023 1:00 PM EDT Height 160 cm (5' 3 ) 10/28/2023 1:00 PM EDT Body Mass Index 23.35 10/28/2023 1:00 PM EDT Plan of Treatment Health Maintenance Due Date Last Done Comments [facility]-Depression Screening 1938 [facility]-Medicare Annual Wellness (AWV) 1938 [facility]-Infant/Child/Adol SDOH Screenings 1938 [facility]- SDOH Screenings 1956 [facility]-Adult SDOH Screenings 1956 [facility]-DTaP,Tdap,and Td Vaccines (1 - Tdap) 1957 [facility]-Zoster Vaccines (1 of 2) 1957 [facility]-Pneumococcal Vaccine: 50+ Years (2 of 2 - PCV) 07/15/2019 07/15/2018, 05/31/2018 [facility]-Bone Density Scan 05/13/2022 05/13/2020 , 05/13/2020, 06/21/2017, Additional history exists [id number] Vaccine ( season) 2024 07/03/2023, 05/30/2022, 11/27/2021, Additional history exists [facility]-Influenza Vaccine (#1) 03/15/202505/15, 04/28/2021, 04/14/2020, Additional history exists [facility]-RSV Vaccine: 60+ Years or Completed 07/03/2023 HPV Vaccines Aged Out No longer eligi ble based on patient's age to complete this topic [facility]-HIB Vaccines Aged Out No longer e ligible based on patient's age to complete this topic [facility]-Hepatitis A Vaccines Aged Out No longer eligible based on patient's age to complete this topic [facility]-IPV Vaccines Aged Out No longer e ligible based on patient's age to complete this topic [facility]-Rotavirus Vaccines Aged Out No lo nger eligible based on patient's age to complete this topic Procedures Procedure Name Priority Date/Time Associated Diagnosis Comments FERRITIN, SERUM Routine 11/24/2024 2:18 PM EDT CBC WITH AUTO DIFFERENTIAL Routine 11/24/2024 2:18 PM EDT from Last 3 Months Results * (ABNORMAL) CBC and Differential (11/24/2024 2:18 PM EDT) External WBC 5.1 3.8 - 10.8 10*3/uL 11/24/2024 6:38 PM EDT [facility] External Red Blood Cell (RBC) 3.44(L) 3.80 - 5.20 10*6/uL 11/24/2024 6:38 PM EDT [facility] External Hemoglobin 10.6(L) 12.0 - 16.0 g/dL 11/24/2024 6:38 PM EDT [facility] External Hematocrit 31.7(L) 35.0 - 47.0 % 11/24/2024 6:38 PM EDT [facility] External MCV 92 80 - 100 fL 11/24/2024 6:38 PM EDT [facility] External MCH 31 26 - 35 pg 11/24/2024 6:38 PM EDT [facility] External MCHC 34 32 - 36 g/dL 11/24/2024 6:38 PM EDT [facility] External RDW 13.8 11.0 - 15.0 % 11/24/2024 6:38 PM EDT [facility] External Mean Platelet Volume 8.2 6.2 - 10.5 fL 11/24/2024 6:38 PM EDT [facility] External Platelet Count (Plt) 261 150 - 400 10*3/uL 11/24/2024 6:38 PM EDT [facility] External Neutrophil# 3.9 1.6 - 8.4 10*3/uL 11/24/2024 6:38 PM EDT [facility] External Lymphocyte# 0.6 0.4 - 5.1 10*3/uL 11/24/2024 6:38 PM EDT [facility] External Absolute Monocyte (Abs [place]) 0.4 0.0 - 1.2 10*3/uL 11/24/2024 6:38 PM EDT [facility] External Eosinophils# 0.1 0.0 - 0.8 10*3/uL 11/24/2024 6:38 PM EDT [facility] External Baso# 0.1 0.0 - 0.3 10*3/uL 11/24/2024 6:38 PM EDT [facility] External Neutrophils % 76.4 42.0 - 78.0 % 11/24/2024 6:38 PM EDT [facility] External Lymphocyte % 12.7 11.0 - 47.0 % 11/24/2024 6:38 PM EDT [facility] External Monocyte % 7.2 0.0 - 11.0 % 11/24/2024 6:38 PM EDT [facility] External Eosinophil% 2.6 0.0 - 7.0 % 11/24/2024 6:38 PM EDT [facility] External Basophil % 1.1 0.0 - 3.0 % 11/24/2024 6:38 PM EDT [facility] External Nucleated RBC%-Auto 0.1 0.0 - 0.9 % 11/24/2024 6:38 PM EDT [facility] External Nucleated RBC Absolute 0.00 Not Estab. 10*3/uL 11/24/2024 6:38 PM EDT [facility] 11/24/2024 2:18 PM EDT 11/24/2024 6:23 PM EDT Fidel Vasquez MD LAB BLOOD ORDERABLES Final R esult Performing Organization Address City/[facility]/ZIP Co de Phone Number [facility] [address] [place] [address], [place] [phone] * Ferritin, Serum (11/24/2024 2:18 PM EDT) External Ferritin 13 13 - 157 ng/mL 11/24/2024 7:09 PM EDT [facility] 11/24/2024 2:18 PM EDT 11/24/2024 6:38 PM EDT Fidel Vasquez MD LAB BLOOD ORDERABLES Final R esult [facility] [address] [place] [address], [place] [phone] from Last 3 Months Insurance MEDICARE [facility] Care Teams Interior Specialist Relationship Specialty Start Date End Date Edson Pendleton MD [address] [place] [id number] PCP - General 10/21/23 Sal Mar MD [address] [id number] Medical Oncologist Hematology and Oncology 10/16/23
--- OUTSIDE RECORDS SUMMARY | 2025-01-19 15:38 | XMS_ITS | Encounter Summary ---
Author Organization [facility] Address [address] [place] [address] Care Team Providers Care Trademark Affixer Name Role Phone System, Provider Not In MD Primary Care Provider Unavailable Sal Mar MD Unavailable [phone] Edson Pendleton MD Primary Care Provider [phone] Encounter Details Date Type Department Care Team (Late st Contact Info) Description 11/09/2021 Orders Only [facility] [address] [place] [address] Sal Mar MD [address] [address] Social History Tobacco Use Types [...] IRON BINDING CAPACITY, PLASMA (INCLUDES TRANSFERRIN) Routine 11/09/2021 3:53 PM EDT documented in this encounter Results * (ABNORMAL) Iron & Total Iron Binding Capacity, Plasma (Includes Transferrin) (11/09/2021 3:53 PM EDT) External Iron 32(L) 37 - 145 ug/dL [facility] External Total Iron Binding Capacity 524(H) 250 - 450 ug/dL (calc) [facility] External Unsaturated Iron Binding Capacity 492(H) 112 - 347 ug/dL [facility] External Iron-Saturation% 6(L) 15 - 50 % (calc) [facility] 11/09/2021 3:53 PM EDT 11/09/2021 6:04 PM EDT us Sal Mar MD LAB BLOOD ORDERABLES Final Res ult [facility] [address] [place] [address], documented in this encounter Visit Diagnoses Not on filedocumented in this encounter Care Teams Trademark Affixer Relationship Specialty Start Date End Date System, Provider Not In, [address] [place] [address] PCP - General Family Medicine 07/15/21 10/20/23 Edson Pendleton MD [address] [place] [address] PCP - General 10/21/23 Sal Mar MD [address] [id number] Medical Oncologist Hematology and Oncology 10/16/23 documented as of this encounter
--- OUTSIDE RECORDS SUMMARY | 2025-01-19 15:38 | XMS_ITS | Encounter Summary ---
Author Organization [facility] Address [address] [place] [address] Care Team Providers Care Frankfurter Inspector Name Role Phone System, Provider Not In MD Primary Care Provider Unavailable Sal Mar MD Unavailable [phone] Edson Pendleton MD Primary Care Provider [phone] Encounter Details Date Type Department Care Team (Late st Contact Info) Description 07/19/2022 Orders Only [facility] @ [facility] [address] [place] [address] Fidel Vasquez MD [address] [place], [place] [id number] Social History Tobacco Use Types Packs/Day Years [...] Diagnosis Comments CBC WITH AUTO DIFFERENTIAL Routine 07/19/2022 3:24 PM EST documented in this encounter Results * (ABNORMAL) CBC and Differential (07/19/2022 3:24 PM EST) External WBC 4.0 3.8 - 10.8 K/uL [facility] External Red Blood Cell (RBC) 3.72(L) 3.80 - 5.20 M/uL [facility] External Hemoglobin 11.3(L) 12.0 - 16.0 G/DL [facility] External Hematocrit 32.9(L) 35.0 - 47.0 % [facility] External MCV 89 80 - 100 fL [facility] External MCH 31 26 - 35 PG [facility] External MCHC 34 32 - 36 G/DL [facility] External RDW 15.7(H) 11.0 - 15.0 % [facility] External Mean Platelet Volume 7.4 6.2 - 10.5 fL [facility] External Platelets 263 130 - 400 K/uL [facility] External Neutrophil# 2.6 1.6 - 8.4 K/uL [facility] External Lymphocyte# 0.9 0.4 - 5.1 K/uL [facility] External Absolute Monocyte (Abs [place]) 0.3 0.0 - 1.2 K/uL [facility] External Eosinophils# 0.1 0.0 - 0.8 K/uL [facility] External Baso# 0.1 0.0 - 0.3 K/uL [facility] External Neutrophils % 66.0 42.0 - 78.0 % [facility] External Lymphocyte % 21.4 11.0 - 47.0 % [facility] External Monocyte % 8.1 0.0 - 11.0 % [facility] External Eosinophil% 3.2 0.0 - 7.0 % [facility] External Basophil % 1.3 0.0 - 3.0 % [facility] External Nucleated RBC%-Auto 0.2 0.0 - 0.9 % [facility] External Nucleated RBC Absolute 0.01 Not Estab. K/uL [facility] 07/19/2022 3:24 PM EST 07/19/2022 3:49 PM EST us Fidel Vasquez MD LAB BLOOD ORDERABLES Final R esult [facility] [address] [place] [address], documented in this encounter Visit Diagnoses Not on filedocumented in this encounter Care Teams Frankfurter Inspector Relationship Specialty Start Date End Date System, Provider Not In, [address] [place] [address] PCP - General Family Medicine 07/15/21 10/20/23 Edson Pendleton MD [address] [place] [address] PCP - General 10/21/23 Sal Mar MD [address] [place] [address] Medical Oncologist Hematology and Oncology 10/16/23 documented as of this encounter
--- OUTSIDE RECORDS SUMMARY | 2025-01-19 15:38 | XMS_ITS | Encounter Summary ---
Author Organization [facility] Address [address] [place] [address] Care Team Providers Care Supervisor Maintenance Name Role Phone System, Provider Not In MD Primary Care Provider Unavailable Sal Mar MD Unavailable [phone] Edson Pendleton MD Primary Care Provider [phone] Encounter Details Date Type Department Care Team (Late st Contact Info) Description 01/03/2022 Orders Only [facility] @ [facility] [address] [place] [address] Fidel Vasquez MD [address] [place], [place] [id number] Social History Tobacco Use Types Packs/Day Years [...] Procedure Name Priority Date/Time Associated Diagnosis Comments THIOPURINE METABOLITES (SO) Routine 01/03/2022 4:15 PM EDT documented in this encounter Results * (ABNORMAL) Thiopurine Metabolites (01/03/2022 4:15 PM EDT) EXTERNAL 6-TGN 212(L) 235 - 400 pmol/8x10( 8)RBC [facility] Comment: This test was developed and its analytical performance characteristics have been determined by [employer]. It has not been cleared or approved by the FDA. This assay has been validated pursuant to the CLIA regulations and is used for clinical purposes. EXTERNAL 6-MMPN <500 <5700 pmol/8x10( 8)RBC [facility] Comment: These results are useful in assessing a patient's metabolism of azathioprine (AZA) or 6-mercaptopurine (6-MP). A 6-thioguanine (6-TG) level greater than 235 pmol/8x10(8) RBC has been associated with remission and very high levels have been associated with leucopenia. 6-methylmercaptopurine (6-MMP) levels greater than 5700 pmol/8x10(8) RBC may be associated with hepatoxicity. This test was developed and its analytical performance characteristics have been determined by [employer]. It has not been cleared or approved by the FDA. This assay has been validated pursuant to the CLIA regulations and is used for clinical purposes. TEST PERFORMED AT: [facility] [address] [address] MICHAELA FRANCIS MD 01/03/2022 4:15 PM EDT 01/03/2022 5:15 PM EDT us Fidel Vasquez MD LAB BLOOD ORDERABLES Final R esult [facility] [address] [place] [address], documented in this encounter Visit Diagnoses Not on filedocumented in this encounter Care Teams Supervisor Maintenance Relationship Specialty Start Date End Date System, Provider Not In, [address] [place] [address] PCP - General Family Medicine 07/15/21 10/20/23 Edson Pendleton MD [address] [place] [address] PCP - General 10/21/23 Sal Mar MD [address] [place] [address] Medical Oncologist Hematology and Oncology 10/16/23 documented as of this encounter
--- OUTSIDE RECORDS SUMMARY | 2025-01-19 15:38 | XMS_ITS | Encounter Summary ---
Author Organization [facility] Address [address] [place] [address] Care Team Providers Care Fire Marshal Refinery Name Role Phone System, Provider Not In MD Primary Care Provider Unavailable Sal Mar MD Unavailable [phone] Edson Pendleton MD Primary Care Provider [phone] Encounter Details Date Type Department Care Team (Late st Contact Info) Description 01/08/2022 Orders Only [facility] @ [facility] [address] [place] [address] Fidel Vasquez MD [address] [place], [place] [id number] Social History Tobacco Use Types Packs/Day Years [...] Procedure Name Priority Date/Time Associated Diagnosis Comments PANCREATIC ELASTASE, FECAL Routine 01/08/2022 12:38 PM EDT documented in this encounter Results * Pancreatic elastase, fecal (01/08/2022 12:38 PM EDT) External Pancreatic Elastase 287 mcg/g [facility] Comment: Adult and Pediatric Reference Ranges for Pancreatic Elastase-1: Normal: >200 mcg/g Moderate Pancreatic Insufficiency: 100-200 mcg/g Severe Pancreatic Insufficiency: <100 mcg/g Elastase-1 (E-1) assay results are expressed in mcg/g, which represent mcg E1/g feces. It is not necessary to interrupt enzyme substitution therapy. TEST PERFORMED AT: [facility] [address] [place] [address] LI CALERO MD,PHD,SEBLE 01/08/2022 12:3 8 PM EDT 01/08/2022 12:45 PM EDT Fidel Vasquez MD LAB BODY FLUIDS AND STOOLS O RDERABLES Final Result [facility] [address] [place] [address], documented in this encounter Visit Diagnoses Not on filedocumented in this encounter Care Teams Fire Marshal Refinery Relationship Specialty Start Date End Date System, Provider Not In, [address] [place] [address] PCP - General Family Medicine 07/15/21 10/20/23 Edson Pendleton MD [address] [facility] [address] [facility] [address] [place] [address] PCP - General 10/21/23 Sal Mar MD [address] [place] [address] Medical Oncologist Hematology and Oncology 10/16/23 documented as of this encounter
--- OUTSIDE RECORDS SUMMARY | 2025-01-19 15:38 | XMS_ITS | Encounter Summary ---
Author Organization [facility] Address [address] [place] [address] Care Team Providers Care Proposal Engineer Name Role Phone Sal Mar MD Unavailable [phone] Edson Pendleton MD Primary Care Provider [phone] Encounter Details Date Type Department Care Team (Late st Contact Info) Description 11/24/2024 Orders Only [facility] at [facility] [address] [place] [address] Fidel Vasquez MD [address] [place] [address] Social History Tobacco Use Types Packs/Day Years [...] Diagnosis Comments CBC WITH AUTO DIFFERENTIAL Routine 11/24/2024 2:18 PM EDT documented in this encounter Results * (ABNORMAL) CBC and Differential (11/24/2024 2:18 PM EDT) External WBC 5.1 3.8 - 10.8 10*3/uL 11/24/2024 6:38 PM EDT [facility] External Red Blood Cell (RBC) 3.44(L) 3.80 - 5.20 10*6/uL 11/24/2024 6:38 PM EDT [facility] External Hemoglobin 10.6(L) 12.0 - 16.0 g/dL 11/24/2024 6:38 PM EDT [facility] External Hematocrit 31.7(L) 35.0 - 47.0 % 11/24/2024 6:38 PM EDT [facility] External MCV 92 80 - 100 fL 11/24/2024 6:38 PM EDT [facility] External MCH 31 26 - 35 pg 11/24/2024 6:38 PM EDT [facility] External MCHC 34 32 - 36 g/dL 11/24/2024 6:38 PM EDT [facility] External RDW 13.8 11.0 - 15.0 % 11/24/2024 6:38 PM EDT [facility] External Mean Platelet Volume 8.2 6.2 - 10.5 fL 11/24/2024 6:38 PM EDT [facility] External Platelet Count (Plt) 261 150 - 400 10*3/uL 11/24/2024 6:38 PM EDT [facility] External Neutrophil# 3.9 1.6 - 8.4 10*3/uL 11/24/2024 6:38 PM EDT [facility] External Lymphocyte# 0.6 0.4 - 5.1 10*3/uL 11/24/2024 6:38 PM EDT [facility] External Absolute Monocyte (Abs [place]) 0.4 0.0 - 1.2 10*3/uL 11/24/2024 6:38 PM EDT [facility] External Eosinophils# 0.1 0.0 - 0.8 10*3/uL 11/24/2024 6:38 PM EDT [facility] External Baso# 0.1 0.0 - 0.3 10*3/uL 11/24/2024 6:38 PM EDT [facility] External Neutrophils % 76.4 42.0 - 78.0 % 11/24/2024 6:38 PM EDT [facility] External Lymphocyte % 12.7 11.0 - 47.0 % 11/24/2024 6:38 PM EDT [facility] External Monocyte % 7.2 0.0 - 11.0 % 11/24/2024 6:38 PM EDT [facility] External Eosinophil% 2.6 0.0 - 7.0 % 11/24/2024 6:38 PM EDT [facility] External Basophil % 1.1 0.0 - 3.0 % 11/24/2024 6:38 PM EDT [facility] External Nucleated RBC%-Auto 0.1 0.0 - 0.9 % 11/24/2024 6:38 PM EDT [facility] External Nucleated RBC Absolute 0.00 Not Estab. 10*3/uL 11/24/2024 6:38 PM EDT [facility] 11/24/2024 2:18 PM EDT 11/24/2024 6:23 PM EDT us Fidel Vasquez MD LAB BLOOD ORDERABLES Final R esult Performing Organization Address City/State/[facility] Co de Phone Number [facility] [address] [place] [address], documented in this encounter Visit Diagnoses Not on filedocumented in this encounter Additional Health Concerns Assessment Noted Time A fall risk assessment has been complete d for the patient 11/05/2023 1:17 PM EDT documented as of this encounter Care Teams Proposal Engineer Relationship Specialty Start Date End Date Edson Pendleton MD [address] [place] [address] PCP - General 10/21/23 Sal Mar MD [address] [place] [address] Medical Oncologist Hematology and Oncology 10/16/23 documented as of this encounter
--- OUTSIDE RECORDS SUMMARY | 2025-01-19 15:38 | XMS_ITS | Encounter Summary ---
Author Organization [facility] Address [address] [place] [address] Care Team Providers Care Flexographic Press Plate Setter Name Role Phone Sal Mar MD Unavailable [phone] Edson Pendleton MD Primary Care Provider [phone] Encounter Details Date Type Department Care Team (Late st Contact Info) Description 11/24/2024 Orders Only [facility] at [facility] [address] [place] [phone] Fidel Vasquez MD [address] [place] [address] Social History Tobacco Use Types [...] FERRITIN, SERUM Routine 11/24/2024 2:18 PM EDT documented in this encounter Results * Ferritin, Serum (11/24/2024 2:18 PM EDT) External Ferritin - 157 ng/mL 11/24/2024 7:09 PM EDT [facility] 11/24/2024 2:18 PM EDT 11/24/2024 6:38 PM EDT Fidel Vasquez MD LAB BLOOD ORDERABLES Final R esult [facility] [address] [place] [address], documented in this encounter Visit Diagnoses Not on filedocumented in this encounter Additional Health Concerns Assessment Noted Time A fall risk assessment has been complete d for the patient 11/05/2023 1:17 PM EDT documented as of this encounter Care Teams Flexographic Press Plate Setter Relationship Specialty Start Date End Date Edson Pendleton MD [address] [place] [address] PCP - General 10/21/23 Sal Mar MD [address] [place] [address] Medical Oncologist Hematology and Oncology 10/16/23 documented as of this encounter
--- OUTSIDE RECORDS SUMMARY | 2025-01-19 15:38 | XMS_ITS | Encounter Summary ---
Author Organization [facility] Address [address] [place] [address] Care Team Providers Care Automatic Coil Machine Operator Name Role Phone System, Provider Not In MD Primary Care Provider Unavailable Sal Mar MD Unavailable [phone] Edson Pendleton MD Primary Care Provider [phone] Encounter Details Date Type Department Care Team (Late st Contact Info) Description 11/08/2022 Orders Only [facility] at [facility] [address] [place] [address] Sal Mar MD [address] [address] Social History Tobacco Use Types [...] IRON BINDING CAPACITY, PLASMA (INCLUDES TRANSFERRIN) Routine 11/08/2022 12:45 PM EDT documented in this encounter Results * (ABNORMAL) Iron & Total Iron Binding Capacity, Plasma (Includes Transferrin) (11/08/2022 12:45 PM EDT) External Iron 105 37 - 145 ug/dL [facility] External Total Iron Binding Capacity 481(H) 250 - 450 ug/dL (calc) [facility] External Unsaturated Iron Binding Capacity 376(H) 112 - 347 ug/dL [facility] External Iron-Saturation% 22 15 - 50 % (calc) [facility] 11/08/2022 12:4 5 PM EDT 11/08/2022 12:54 PM EDT us Sal Mar MD LAB BLOOD ORDERABLES Final Res ult [facility] [address] [place] [address], documented in this encounter Visit Diagnoses Not on filedocumented in this encounter Care Teams Automatic Coil Machine Operator Relationship Specialty Start Date End Date System, Provider Not In, [address] [place] [address] PCP - General Family Medicine 07/15/21 10/20/23 Edson Pendleton MD [address] [place] [address] PCP - General 10/21/23 Sal Mar MD [address] [place] [id number] Medical Oncologist Hematology and Oncology 10/16/23 documented as of this encounter
--- OUTSIDE RECORDS SUMMARY | 2025-01-19 15:38 | XMS_ITS | Encounter Summary ---
Author Organization [facility] Address [address] [place] [address] Care Team Providers Care Logistics Coordinator Name Role Phone System, Provider Not In MD Primary Care Provider Unavailable Sal Mar MD Unavailable [phone] Edson Pendleton MD Primary Care Provider [phone] Encounter Details Date Type Department Care Team (Late st Contact Info) Description 01/03/2022 Orders Only [facility] @ [facility] [address] [place] [address] Fidel Vasquez MD [address] [place], [place] [phone] Social History Tobacco Use Types Packs/Day Years [...] Procedure Name Priority Date/Time Associated Diagnosis Comments VITAMIN B12, SERUM Routine 01/03/2022 4: 15 PM EDT documented in this encounter Results * (ABNORMAL) Vitamin B12, Serum (01/03/2022 4:15 PM EDT) External Vitamin B12 >2,000(H) 232 - 1,245 pg/mL [facility] 01/03/2022 4:15 PM EDT 01/03/2022 5:14 PM EDT Fidel Vasquez MD LAB BLOOD ORDERABLES Final R esult [facility] [address] [place] [address], documented in this encounter Visit Diagnoses Not on filedocumented in this encounter Care Teams Logistics Coordinator Relationship Specialty Start Date End Date System, Provider Not In, [address] [place] [address] PCP - General Family Medicine 07/15/21 10/20/23 Edson Pnedleton MD [address] [place] [address] PCP - General 10/21/23 Sal Mar MD [address] [place] [address] Medical Oncologist Hematology and Oncology 10/16/23 documented as of this encounter
--- OUTSIDE RECORDS SUMMARY | 2025-01-19 15:39 | XMS_ITS | Encounter Summary ---
Author Organization [facility] Address [address] [place] [address] Care Team Providers Care Field Agronomist Name Role Phone System, Provider Not In MD Primary Care Provider Unavailable Sal Mar MD Unavailable [phone] Edson Pendleton MD Primary Care Provider [phone] Encounter Details Date Type Department Care Team (Late st Contact Info) Description 07/19/2022 Orders Only [facility] @ [facility] [address] [place] [address] Fidel Vasquez MD [address] [place], [place] [id number] Social History Tobacco Use Types Packs/Day Years [...] Procedure Name Priority Date/Time Associated Diagnosis Comments C-REACTIVE PROTEIN, PLASMA Routine 07/19/2022 3:24 PM EST documented in this encounter Results * C-Reactive Protein, Plasma (07/19/2022 3:24 PM EST) External C-Reactive Protein <0.06 0.00 - 0.49 mg/dL [facility] 07/19/2022 3:24 PM EST 07/19/2022 3:56 PM EST Fidel Vasquez MD LAB BLOOD ORDERABLES Final R esult [facility] [address] [place] [address], documented in this encounter Visit Diagnoses Not on filedocumented in this encounter Care Teams Field Agronomist Relationship Specialty Start Date End Date System, Provider Not In, [address] [place] [address] PCP - General Family Medicine 07/15/21 10/20/23 Edson Pendleton MD [address] [place] [address] PCP - General 10/21/23 Sal Mar MD [address] [place] [address] Medical Oncologist Hematology and Oncology 10/16/23 documented as of this encounter
--- OUTSIDE RECORDS SUMMARY | 2025-01-19 15:39 | XMS_ITS | Data Portability ---
Author Organization [facility] Address [address] [place] [address] Care Team Providers Care Buyers' Agent Name Role Phone STEWART DWYER Conventional Underwriter CHANEL KAMARA Hematology/Oncology [phone] ALIE VASQUEZ Certified Art Therapist [phone] AIDEN GAMBLE Primary Care Provider [phone] CODEY YATES Coordinator Of Library Services NINA STONE Kelp Cutter NILTON ANTUNEZ Clamper Assessment Encounter Date Assessment Date Assessment LastModified by Organization Details LastModified Time 02/08/2022 02/08/2022 This is an 81-year-old female with a history of recurrent iron-deficien cy anemia, related to probably previous surgeries, absorptive issues as well as a history of Crohn's disease as well. At this point, we are doing well. She is very sensitive to her body at this point and is aware when she starts to draw. We will just allow her to follow up as needed given her iron stores will replete. She continues to follow closely with her primary care physician, Dr. Gamble as well as Dr. Vasquez, but certainly we will be available for her should she feel the need to get retested. [email or web address] Not available 02/08/2022 16:49:28 11/08/2022 11/08/2022 This is an 82-year-old female with iron deficiency anemia and chronic kidney disease. We will go ahead and repeat. She has failed oral iron in the past and given her chronic kidney disease, I doubt she would handle it well. At this point, we will just treat it with parental iron. I am not going to schedule a specific follow-up for her as often times she can do well for more than a year off of parental iron, but we will get his remission back to Dr. Gamble and he can check on her from time to time and certainly she is fairly sensitive to when she starts dropping as she gets a lot of ice chewing symptoms associated with this. [email or web address] Not available 11/09/2022 12:07:45 Plan of Treatment Reminders Order Date Submit Date Provider Last Modified By Organization Details Last Modified Time Details Appointments LEVEL 2 2024 11:00A M STEWART DWYER MD Not available Not available Not available RECHECK 2025 03:10P M ALIE VASQUEZ MD Not available Not available Not available Lab None recorded . Referral None recorded . Procedures None recorded . Surgeries None recorded . Imaging None recorded . Medication Orders None recorded . Patient TargetsNo targets recorded. Patient InstructionsNo instructions recorded. Reason for Referral None Reported. Results Created Date Observation Date Name Description Value Unit Range Abnormal Flag Note LastModifiedBy Organization Detail LastModifiedTime 11/10/19 22 11/09/2021 COMPL ETE BLOOD COUNT white blood cells 3.9 K/uL 3.8-10 .8 normal Not Available [facility] [address] [place] [address], [address], 11/09/2021 18:13:18 11/10/19 22 11/09/2021 COMPL ETE BLOOD COUNT red blood cells 3.18 M/uL 3.80-5 .20 low Not Available [facility] [place], [address], 11/09/2021 18:13:18 11/10/19 22 11/09/2021 COMPL ETE BLOOD COUNT hemoglobin 9.5 g/dL 12.0-1 6.0 low Not Available [facility] [place], [address], 11/09/2021 18:13:18 11/10/19 22 11/09/2021 COMPL ETE BLOOD COUNT hematocrit 27.0 % 35.0-4 7.0 low Not Available [facility] [address] [place] [address], [address], 11/09/2021 18:13:18 11/10/19 22 11/09/2021 COMPL ETE BLOOD COUNT MCV 85 fL 80-100 normal Not Available [facility] [address] [place] [address], [address], 11/09/2021 18:13:18 11/10/19 22 11/09/2021 COMPL ETE BLOOD COUNT MCH 30 pg 26-35 normal Not Available [facility] [address] [place] [address], [address], 11/09/2021 18:13:18 11/10/19 22 11/09/2021 COMPL ETE BLOOD COUNT MCHC 35 g/dL 32-36 normal Not Available [facility] [address] [place] [address], [address], 11/09/2021 18:13:18 11/10/19 22 11/09/2021 COMPL ETE BLOOD COUNT RDW 15.0 % 11.0-1 5.0 normal Not Available [facility] [address] [place] [address], [address], 11/09/2021 18:13:18 11/10/19 22 11/09/2021 COMPL ETE BLOOD COUNT MPV 7.2 fL 6.2-10 .5 normal Not Available [facility] [address] [place] [address], [address], 11/09/2021 18:13:18 11/10/19 22 11/09/2021 COMPL ETE BLOOD COUNT platelet count 228 K/uL 130-40 0 normal Not Available [facility] [address] [place] [address], [address], 11/09/2021 18:13:18 11/10/19 22 11/09/2021 COMPL ETE BLOOD COUNT neutrophil,a bsolute 2.9 K/uL 1.6-8. 4 normal Not Available [facility] [address] [place] [address], [address], 11/09/2021 18:13:18 11/10/19 22 11/09/2021 COMPL ETE BLOOD COUNT lymphocyte,a bsolute 0.6 K/uL 0.4-5. 1 normal Not Available [facility] [address] [place] [address], [address], 11/09/2021 18:13:18 11/10/19 22 11/09/2021 COMPL ETE BLOOD COUNT monocyte,abs olute 0.3 K/uL 0.0-1. 2 normal Not Available [facility] [address] [place] [address], [address], 11/09/2021 18:13:18 11/10/19 22 11/09/2021 COMPL ETE BLOOD COUNT eosinophil,a bsolute 0.1 K/uL 0.0-0. 8 normal Not Available [facility] [address] [place] [address], [address], 11/09/2021 18:13:18 11/10/19 22 11/09/2021 COMPL ETE BLOOD COUNT basophil,abs olute 0.0 K/uL 0.0-0. 3 normal Not Available [facility] [address] [place] [address], [address], 11/09/2021 18:13:18 11/10/19 22 11/09/2021 COMPL ETE BLOOD COUNT % neutrophils 73.4 % 42.0-7 8.0 normal Not Available [facility] [address] [place] [address], [address], 11/09/2021 18:13:18 11/10/19 22 11/09/2021 COMPL ETE BLOOD COUNT % lymphocytes 16.4 % 11.0-4 7.0 normal Not Available [facility] [address] [place] [address], [address], 11/09/2021 18:13:18 11/10/19 22 11/09/2021 COMPL ETE BLOOD COUNT % monocytes 6.8 % 0.0-11 .0 normal Not Available [facility] [address] [place] [address], [address], 11/09/2021 18:13:18 11/10/19 22 11/09/2021 COMPL ETE BLOOD COUNT % eosinophils 2.3 % 0.0-7. 0 normal Not Available [facility] [address] [place] [address], [address], 11/09/2021 18:13:18 11/10/19 22 11/09/2021 COMPL ETE BLOOD COUNT % basophils 1.1 % 0.0-3. 0 normal Not Available [facility] [address] [place] [address], [address], 11/09/2021 18:13:18 11/10/19 22 11/09/2021 COMPL ETE BLOOD COUNT nucleated red cells 0.1 % 0.0-0. 9 normal Not Available [facility] [address] [place] [address], [address], 11/09/2021 18:13:18 11/10/19 22 11/09/2021 COMPL ETE BLOOD COUNT nucleated RBCs, absolute 0.00 K/uL not estab. normal Not Available [facility] [address] [place] [address], [address], 11/09/2021 18:13:18 11/10/19 22 11/09/2021 JUANA TIN ferritin 9 NG/mL 13-157 low Not Available [facility] [address] [place] [address], [address], 11/09/2021 20:08:34 11/10/19 22 11/09/2021 IRON PANEL -TOTA L AND TIBC iron 32 ug/dL 37-145 low Not Available [facility] [address] [place] [address], [address], 11/09/2021 20:08:36 11/10/19 22 11/09/2021 IRON PANEL -TOTA L AND TIBC total iron binding cap. 524 ug/dL _(kyree c) 250-45 0 high Not Available [facility] [address] [place] [address], [address], 11/09/2021 20:08:36 11/10/19 22 11/09/2021 IRON PANEL -TOTA L AND TIBC unsat.iron binding cap. 492 ug/dL 112-34 7 high Not Available [facility] [address] [place] [address], [address], 11/09/2021 20:08:36 11/10/19 22 11/09/2021 IRON PANEL -TOTA L AND TIBC % saturation 6 %_(ca lc) 15-50 low Not Available [address], [address], 11/09/2021 20:08:36 11/10/19 22 11/09/2021 COMP. METAB OLIC PANEL glucose 89 mg/dL 74-100 normal Not Available [address], [address], 11/09/2021 20:08:37 11/10/19 22 11/09/2021 COMP. METAB OLIC PANEL blood urea nitrogen 17 mg/dL 6-20 normal Not Available [facility] [address] [place] [address], [address], 11/09/2021 20:08:37 11/10/19 22 11/09/2021 COMP. METAB OLIC PANEL creatinine 1.47 mg/dL 0.50-0 .95 high Not Available [facility] [address] [place] [address], [address], 11/09/2021 20:08:37 11/10/19 22 11/09/2021 COMP. METAB OLIC PANEL BUN/creatini ne ratio 12 (calc ) 10-20 normal Not Available [facility] [address] [place] [address], [address], 11/09/2021 20:08:37 11/10/19 22 11/09/2021 COMP. METAB OLIC PANEL sodium 141 mmol/ L 136-14 5 normal Not Available [facility] [address] [place] [address], [address], 11/09/2021 20:08:37 11/10/19 22 11/09/2021 COMP. METAB OLIC PANEL potassium 3.7 mmol/ L 3.4-5. 0 normal Not Available [facility] [address] [place] [address], [address], 11/09/2021 20:08:37 11/10/19 22 11/09/2021 COMP. METAB OLIC PANEL chloride 105 mmol/ L 98-107 normal Not Available [facility] [address] [place] [address], [address], 11/09/2021 20:08:37 11/10/19 22 11/09/2021 COMP. METAB OLIC PANEL carbon dioxide 24 mmol/ L 22-31 normal Not Available [facility] [address] [place] [address], [address], 11/09/2021 20:08:37 11/10/19 22 11/09/2021 COMP. METAB OLIC PANEL anion gap 12 (calc ) 7-25 normal Not Available [facility] [address] [place] [address], [address], 11/09/2021 20:08:37 11/10/19 22 11/09/2021 COMP. METAB OLIC PANEL calcium 8.9 mg/dL 8.6-10 .2 normal Not Available [facility] [address] [place] [address], [address], 11/09/2021 20:08:37 11/10/19 22 11/09/2021 COMP. METAB OLIC PANEL total protein 6.5 g/dL 6.4-8. 3 normal Not Available [facility] [address] [place] [address], [address], 11/09/2021 20:08:37 11/10/19 22 11/09/2021 COMP. METAB OLIC PANEL albumin 4.3 g/dL 3.5-5. 2 normal Not Available [facility] [address] [place] [address], [address], 11/09/2021 20:08:37 11/10/19 22 11/09/2021 COMP. METAB OLIC PANEL globulin 2.2 g/dL_ (calc ) 1.5-4. 5 normal Not Available [facility] [address] [place] [address], [address], 11/09/2021 20:08:37 11/10/19 22 11/09/2021 COMP. METAB OLIC PANEL albumin/glob ulin ratio 2.0 (calc ) 1.1-2. 5 normal Not Available [facility] [address] [place] [address], [address], 11/09/2021 20:08:37 11/10/19 22 11/09/2021 COMP. METAB OLIC PANEL bilirubin, total 0.2 mg/dL 0.1-1. 2 normal Not Available [facility] [address] [place] [address], [address], 11/09/2021 20:08:37 11/10/19 22 11/09/2021 COMP. METAB OLIC PANEL alkaline phosphatase 57 U/L 30-121 normal Not Available [facility] [address] [place] [address], [address], 11/09/2021 20:08:37 11/10/19 22 11/09/2021 COMP. METAB OLIC PANEL AST 27 U/L 0-32 normal Not Available [facility] [address] [place] [address], [address], 11/09/2021 20:08:37 11/10/19 22 11/09/2021 COMP. METAB OLIC PANEL ALT 17 U/L 0-33 normal Not Available [facility] [address] [place] [address], [address], 11/09/2021 20:08:37 11/10/19 22 11/09/2021 COMP. METAB OLIC PANEL GFR 38 >= 60 abnormal Not Available [facility] [address] [place] [address], [address], 11/09/2021 20:08:37 11/10/19 22 11/09/2021 COMP. METAB OLIC PANEL GFR non- 33 >= 60 abnormal NOT E Chron ic kidne y disea se is defin ed as kidne y damag e for more than 3 month s or a GFR less than 60 mL/mi n/1.7 3 m2 for great er than 3 month s. This calcu latio n has not been valid ated in pregn ant women . For pedia tric patie nts refer to Natio sonja Kidzari y Found ation https ://andrew w.shila hameedy.o rg/pr ofess ional s/KDO QI/gf r_cal culat orPed Not Available [facility] [address] [place] [address], [address], 11/09/2021 20:08:37 02/09/20 22 02/08/2022 COMPL ETE BLOOD COUNT white blood cells 4.3 K/uL 3.8-10 .8 normal Not Available [facility] [address] [place] [address], [address], 02/08/2022 14:36:51 02/09/20 22 02/08/2022 COMPL ETE BLOOD COUNT red blood cells 3.61 M/uL 3.80-5 .20 low Not Available [facility] [address] [place] [address], [address], 02/08/2022 14:36:51 02/09/20 22 02/08/2022 COMPL ETE BLOOD COUNT hemoglobin 11.5 g/dL 12.0-1 6.0 low Not Available [facility] [address] [place] [address], [address], 02/08/2022 14:36:51 02/09/20 22 02/08/2022 COMPL ETE BLOOD COUNT hematocrit 32.7 % 35.0-4 7.0 low Not Available [facility] [address] [place] [address], [address], 02/08/2022 14:36:51 02/09/20 22 02/08/2022 COMPL ETE BLOOD COUNT MCV 91 fL 80-100 normal Not Available [facility] [address] [place] [address], [address], 02/08/2022 14:36:51 02/09/20 22 02/08/2022 COMPL ETE BLOOD COUNT MCH 32 pg 26-35 normal Not Available [facility] [address] [place] [address], [address], 02/08/2022 14:36:51 02/09/20 22 02/08/2022 COMPL ETE BLOOD COUNT MCHC 35 g/dL 32-36 normal Not Available [facility] [address] [place] [address], [address], 02/08/2022 14:36:51 02/09/20 22 02/08/2022 COMPL ETE BLOOD COUNT RDW 14.1 % 11.0-1 5.0 normal Not Available [facility] [address] [place] [address], [address], 02/08/2022 14:36:51 02/09/20 22 02/08/2022 COMPL ETE BLOOD COUNT MPV 7.1 fL 6.2-10 .5 normal Not Available [facility] [address] [place] [address], [address], 02/08/2022 14:36:51 02/09/20 22 02/08/2022 COMPL ETE BLOOD COUNT platelet count 216 K/uL 130-40 0 normal Not Available [facility] [address] [place] [address], [address], 02/08/2022 14:36:51 02/09/20 22 02/08/2022 COMPL ETE BLOOD COUNT neutrophil,a bsolute 3.2 K/uL 1.6-8. 4 normal Not Available [facility] [address] [place] [address], [address], 02/08/2022 14:36:51 02/09/20 22 02/08/2022 COMPL ETE BLOOD COUNT lymphocyte,a bsolute 0.6 K/uL 0.4-5. 1 normal Not Available [facility] [address] [place] [address], [address], 02/08/2022 14:36:51 02/09/20 22 02/08/2022 COMPL ETE BLOOD COUNT monocyte,abs olute 0.4 K/uL 0.0-1. 2 normal Not Available [facility] [address] [place] [address], [address], 02/08/2022 14:36:51 02/09/20 22 02/08/2022 COMPL ETE BLOOD COUNT eosinophil,a bsolute 0.1 K/uL 0.0-0. 8 normal Not Available [facility] [address] [place] [address], [address], 02/08/2022 14:36:51 02/09/20 22 02/08/2022 COMPL ETE BLOOD COUNT basophil,abs olute 0.1 K/uL 0.0-0. 3 normal Not Available [facility] [address] [place] [address], [address], 02/08/2022 14:36:51 02/09/20 22 02/08/2022 COMPL ETE BLOOD COUNT % neutrophils 74.5 % 42.0-7 8.0 normal Not Available [facility] [address] [place] [address], [address], 02/08/2022 14:36:51 02/09/20 22 02/08/2022 COMPL ETE BLOOD COUNT % lymphocytes 13.0 % 11.0-4 7.0 normal Not Available [facility] [address] [place] [address], [address], 02/08/2022 14:36:51 02/09/20 22 02/08/2022 COMPL ETE BLOOD COUNT % monocytes 8.8 % 0.0-11 .0 normal Not Available [facility] [address] [place] [address], [address], 02/08/2022 14:36:51 02/09/20 22 02/08/2022 COMPL ETE BLOOD COUNT % eosinophils 2.4 % 0.0-7. 0 normal Not Available [facility] [address] [place] [address], [address], 02/08/2022 14:36:51 02/09/20 22 02/08/2022 COMPL ETE BLOOD COUNT % basophils 1.3 % 0.0-3. 0 normal Not Available [facility] [address] [place] [address], [address], 02/08/2022 14:36:51 02/09/20 22 02/08/2022 COMPL ETE BLOOD COUNT nucleated red cells 0.1 % 0.0-0. 9 normal Not Available [facility] [address] [place] [address], [address], 02/08/2022 14:36:51 02/09/20 22 02/08/2022 COMPL ETE BLOOD COUNT nucleated RBCs, absolute 0.00 K/uL not estab. normal Not Available [facility] [address] [place] [address], [address], 02/08/2022 14:36:51 02/09/20 22 02/08/2022 COMP. METAB OLIC PANEL glucose 106 mg/dL 74-100 high Not Available [facility] [address] [place] [address], [address], 02/08/2022 15:12:01 02/09/20 22 02/08/2022 COMP. METAB OLIC PANEL blood urea nitrogen 27 mg/dL 6-20 high Not Available [facility] [address] [place] [address], [address], 02/08/2022 15:12:01 02/09/20 22 02/08/2022 COMP. METAB OLIC PANEL creatinine 1.59 mg/dL 0.50-0 .95 high Not Available [facility] [address] [place] [address], [address], 02/08/2022 15:12:01 02/09/20 22 02/08/2022 COMP. METAB OLIC PANEL BUN/creatini ne ratio 17 (calc ) 10-20 normal Not Available [facility] [address] [place] [address], [address], 02/08/2022 15:12:01 02/09/20 22 02/08/2022 COMP. METAB OLIC PANEL sodium 141 mmol/ L 136-14 5 normal Not Available [facility] [address] [place] [address], [address], 02/08/2022 15:12:01 02/09/20 22 02/08/2022 COMP. METAB OLIC PANEL potassium 4.0 mmol/ L 3.4-5. 0 normal Not Available [facility] [address] [place] [address], [address], 02/08/2022 15:12:01 02/09/20 22 02/08/2022 COMP. METAB OLIC PANEL chloride 103 mmol/ L 98-107 normal Not Available [facility] [address] [place] [address], [address], 02/08/2022 15:12:01 02/09/20 22 02/08/2022 COMP. METAB OLIC PANEL carbon dioxide 26 mmol/ L 22-31 normal Not Available [facility] [address] [place] [address], [address], 02/08/2022 15:12:01 02/09/20 22 02/08/2022 COMP. METAB OLIC PANEL anion gap 12 (calc ) 7-25 normal Not Available [facility] [address] [place] [address], [address], 02/08/2022 15:12:01 02/09/20 22 02/08/2022 COMP. METAB OLIC PANEL calcium 9.3 mg/dL 8.6-10 .2 normal Not Available [facility] [address] [place] [address], [address], 02/08/2022 15:12:01 02/09/20 22 02/08/2022 COMP. METAB OLIC PANEL total protein 6.1 g/dL 6.4-8. 3 low Not Available [facility] [address] [place] [address], [address], 02/08/2022 15:12:01 02/09/20 22 02/08/2022 COMP. METAB OLIC PANEL albumin 4.1 g/dL 3.5-5. 2 normal Not Available [facility] [address] [place] [address], [address], 02/08/2022 15:12:01 02/09/20 22 02/08/2022 COMP. METAB OLIC PANEL globulin 2.0 g/dL_ (calc ) 1.5-4. 5 normal Not Available [facility] [address] [place] [address], [address], 02/08/2022 15:12:01 02/09/20 22 02/08/2022 COMP. METAB OLIC PANEL albumin/glob ulin ratio 2.1 (calc ) 1.1-2. 5 normal Not Available [facility] [address] [place] [address], [address], 02/08/2022 15:12:01 02/09/20 22 02/08/2022 COMP. METAB OLIC PANEL bilirubin, total 0.3 mg/dL 0.1-1. 2 normal Not Available [facility] [address] [place] [address], [address], 02/08/2022 15:12:01 02/09/20 22 02/08/2022 COMP. METAB OLIC PANEL alkaline phosphatase 47 U/L 30-121 normal Not Available [facility] [address] [place] [address], [address], 02/08/2022 15:12:01 02/09/20 22 02/08/2022 COMP. METAB OLIC PANEL AST 19 U/L 0-32 normal Not Available [facility] [address] [place] [address], [address], 02/08/2022 15:12:01 02/09/20 22 02/08/2022 COMP. METAB OLIC PANEL ALT 13 U/L 0-33 normal Not Available [facility] [address] [place] [address], [address], 02/08/2022 15:12:01 02/09/20 22 02/08/2022 COMP. METAB OLIC PANEL GFR 32 >= 60 abnormal NOT E New calcu latio n for GFR (CKD- EPI 2020) is formu lated witho ut race adjus tment facto rs at the recom menda tion of the Zohra Carr y Mele atgrady and [facility] . This calcu latio n has not been valid ated in pregn ant women . For pedia tric patie nts refer to https ://andrew cage.shila strong.o rg/pr ofess ional s/KDO QI/gf r_cal culat orPed Not Available [facility] [address] [place] [address], [address], 02/08/2022 15:12:01 02/09/20 22 02/08/2022 JUANA TIN ferritin 94 NG/mL 13-157 normal Not Available [facility] [address] [place] [address], [address], 02/08/2022 15:12:02 02/09/20 22 02/08/2022 IRON PANEL -TOTA L AND TIBC iron 116 ug/dL 37-145 normal Not Available [facility] [address] [place] [address], [address], 02/08/2022 15:12:04 02/09/20 22 02/08/2022 IRON PANEL -TOTA L AND TIBC total iron binding cap. 419 ug/dL _(kyree c) 250-45 0 normal Not Available [facility] [address] [place] [address], [address], 02/08/2022 15:12:04 02/09/20 22 02/08/2022 IRON PANEL -TOTA L AND TIBC unsat.iron binding cap. 303 ug/dL 112-34 7 normal Not Available [facility] [address] [place] [address], [address], 02/08/2022 15:12:04 02/09/20 22 02/08/2022 IRON PANEL -TOTA L AND TIBC % saturation 28 %_(ca lc) 15-50 normal Not Available [facility] [address] [place] [address], [address], 02/08/2022 15:12:04 11/09/19 23 11/08/2022 COMPL ETE BLOOD COUNT white blood cells 4.3 K/uL 3.8-10 .8 normal Not Available [facility] [address] [place] [address], [address], 11/08/2022 13:06:59 11/09/19 23 11/08/2022 COMPL ETE BLOOD COUNT red blood cells 3.16 M/uL 3.80-5 .20 low Not Available [facility] [address] [place] [address], [address], 11/08/2022 13:06:59 11/09/19 23 11/08/2022 COMPL ETE BLOOD COUNT hemoglobin 9.9 g/dL 12.0-1 6.0 low Not Available [facility] [address] [place] [address], [address], 11/08/2022 13:06:59 11/09/19 23 11/08/2022 COMPL ETE BLOOD COUNT hematocrit 29.0 % 35.0-4 7.0 low Not Available [facility] [address] [place] [address], [address], 11/08/2022 13:06:59 11/09/19 23 11/08/2022 COMPL ETE BLOOD COUNT MCV 92 fL 80-100 normal Not Available [facility] [address] [place] [address], [address], 11/08/2022 13:06:59 11/09/19 23 11/08/2022 COMPL ETE BLOOD COUNT MCH 31 pg 26-35 normal Not Available [facility] [address] [place] [address], [address], 11/08/2022 13:06:59 11/09/19 23 11/08/2022 COMPL ETE BLOOD COUNT MCHC 34 g/dL 32-36 normal Not Available [facility] [address] [place] [address], [address], 11/08/2022 13:06:59 11/09/19 23 11/08/2022 COMPL ETE BLOOD COUNT RDW 14.3 % 11.0-1 5.0 normal Not Available [facility] [address] [place] [address], [address], 11/08/2022 13:06:59 11/09/19 23 11/08/2022 COMPL ETE BLOOD COUNT MPV 7.2 fL 6.2-10 .5 normal Not Available [facility] [address] [place] [address], [address], 11/08/2022 13:06:59 11/09/19 23 11/08/2022 COMPL ETE BLOOD COUNT platelet count 206 K/uL 130-40 0 normal Not Available [facility] [address] [place] [address], [address], 11/08/2022 13:06:59 11/09/19 23 11/08/2022 COMPL ETE BLOOD COUNT neutrophil,a bsolute 3.2 K/uL 1.6-8. 4 normal Not Available [facility] [address] [place] [address], [address], 11/08/2022 13:06:59 11/09/19 23 11/08/2022 COMPL ETE BLOOD COUNT lymphocyte,a bsolute 0.6 K/uL 0.4-5. 1 normal Not Available [facility] [address] [place] [address], [address], 11/08/2022 13:06:59 11/09/19 23 11/08/2022 COMPL ETE BLOOD COUNT monocyte,abs olute 0.4 K/uL 0.0-1. 2 normal Not Available [facility] [address] [place] [address], [address], 11/08/2022 13:06:59 11/09/19 23 11/08/2022 COMPL ETE BLOOD COUNT eosinophil,a bsolute 0.1 K/uL 0.0-0. 8 normal Not Available [facility] [address] [place] [address], [address], 11/08/2022 13:06:59 11/09/19 23 11/08/2022 COMPL ETE BLOOD COUNT basophil,abs olute 0.1 K/uL 0.0-0. 3 normal Not Available [facility] [address] [place] [address], [address], 11/08/2022 13:06:59 11/09/19 23 11/08/2022 COMPL ETE BLOOD COUNT % neutrophils 74.1 % 42.0-7 8.0 normal Not Available [facility] [address] [place] [address], [address], 11/08/2022 13:06:59 11/09/19 23 11/08/2022 COMPL ETE BLOOD COUNT % lymphocytes 14.0 % 11.0-4 7.0 normal Not Available [facility] [address] [place] [address], [address], 11/08/2022 13:06:59 11/09/19 23 11/08/2022 COMPL ETE BLOOD COUNT % monocytes 8.2 % 0.0-11 .0 normal Not Available [facility] [address] [place] [address], [address], 11/08/2022 13:06:59 11/09/19 23 11/08/2022 COMPL ETE BLOOD COUNT % eosinophils 2.5 % 0.0-7. 0 normal Not Available [facility] [address] [place] [address], [address], 11/08/2022 13:06:59 11/09/19 23 11/08/2022 COMPL ETE BLOOD COUNT % basophils 1.2 % 0.0-3. 0 normal Not Available [facility] [address] [place] [address], [address], 11/08/2022 13:06:59 11/09/19 23 11/08/2022 COMPL ETE BLOOD COUNT nucleated red cells 0.0 % 0.0-0. 9 normal Not Available [facility] [address] [place] [address], [address], 11/08/2022 13:06:59 11/09/19 23 11/08/2022 COMPL ETE BLOOD COUNT nucleated RBCs, absolute 0.00 K/uL not estab. normal Not Available [facility] [address] [place] [address], [address], 11/08/2022 13:06:59 11/09/19 23 11/08/2022 JUANA TIN ferritin 9 NG/mL 13-157 low Not Available [facility] [address] [place] [address], [address], 11/08/2022 13:33:17 11/09/19 23 11/08/2022 IRON PANEL -TOTA L AND TIBC iron 105 ug/dL 37-145 normal Not Available [facility] [address] [place] [address], [address], 11/08/2022 13:33:18 11/09/19 23 11/08/2022 IRON PANEL -TOTA L AND TIBC total iron binding cap. 481 ug/dL _(kyree c) 250-45 0 high Not Available [facility] [address] [place] [address], [address], 11/08/2022 13:33:18 11/09/19 23 11/08/2022 IRON PANEL -TOTA L AND TIBC unsat.iron binding cap. 376 ug/dL 112-34 7 high Not Available [facility] [address] [place] [address], [address], 11/08/2022 13:33:18 11/09/19 23 11/08/2022 IRON PANEL -TOTA L AND TIBC % saturation 22 %_(ca lc) 15-50 normal Not Available [facility] [address] [place] [address], [address], 11/08/2022 13:33:18 11/09/19 23 11/08/2022 COMP. METAB OLIC PANEL glucose 93 mg/dL 74-100 normal Not Available [facility] [address] [place] [address], [address], 11/08/2022 13:33:20 11/09/19 23 11/08/2022 COMP. METAB OLIC PANEL blood urea nitrogen 27 mg/dL 6-20 high Not Available [facility] [address] [place] [address], [address], 11/08/2022 13:33:20 11/09/19 23 11/08/2022 COMP. METAB OLIC PANEL creatinine 1.39 mg/dL 0.50-0 .95 high Not Available [facility] [address] [place] [address], [address], 11/08/2022 13:33:20 11/09/19 23 11/08/2022 COMP. METAB OLIC PANEL BUN/creatini ne ratio 19 (calc ) 10-20 normal Not Available [facility] [address] [place] [address], [address], 11/08/2022 13:33:20 11/09/19 23 11/08/2022 COMP. METAB OLIC PANEL sodium 141 mmol/ L 136-14 5 normal Not Available [facility] [address] [place] [address], [address], 11/08/2022 13:33:20 11/09/19 23 11/08/2022 COMP. METAB OLIC PANEL potassium 4.3 mmol/ L 3.4-5. 0 normal Not Available [facility] [address] [place] [address], [address], 11/08/2022 13:33:20 11/09/19 23 11/08/2022 COMP. METAB OLIC PANEL chloride 105 mmol/ L 98-107 normal Not Available [facility] [address] [place] [address], [address], 11/08/2022 13:33:20 11/09/19 23 11/08/2022 COMP. METAB OLIC PANEL carbon dioxide 24 mmol/ L 22-31 normal Not Available [facility] [address] [place] [address], [address], 11/08/2022 13:33:20 11/09/19 23 11/08/2022 COMP. METAB OLIC PANEL anion gap 12 (calc ) 7-25 normal Not Available [facility] [address] [place] [address], [address], 11/08/2022 13:33:20 11/09/19 23 11/08/2022 COMP. METAB OLIC PANEL calcium 8.4 mg/dL 8.6-10 .2 low Not Available [facility] [address] [place] [address], [address], 11/08/2022 13:33:20 11/09/19 23 11/08/2022 COMP. METAB OLIC PANEL total protein 5.9 g/dL 6.4-8. 3 low Not Available [facility] [address] [place] [address], [address], 11/08/2022 13:33:20 11/09/19 23 11/08/2022 COMP. METAB OLIC PANEL albumin 3.7 g/dL 3.5-5. 2 normal Not Available [facility] [address] [place] [address], [address], 11/08/2022 13:33:20 11/09/19 23 11/08/2022 COMP. METAB OLIC PANEL globulin 2.2 g/dL_ (calc ) 1.5-4. 5 normal Not Available [facility] [address] [place] [address], [address], 11/08/2022 13:33:20 11/09/19 23 11/08/2022 COMP. METAB OLIC PANEL albumin/glob ulin ratio 1.7 (calc ) 1.1-2. 5 normal Not Available [facility] [address] [place] [address], [address], 11/08/2022 13:33:20 11/09/19 23 11/08/2022 COMP. METAB OLIC PANEL bilirubin, total 0.2 mg/dL 0.1-1. 2 normal Not Available [facility] [address] [place] [address], [address], 11/08/2022 13:33:20 11/09/19 23 11/08/2022 COMP. METAB OLIC PANEL alkaline phosphatase 45 U/L 30-121 normal Not Available [facility] [address] [place] [address], [address], 11/08/2022 13:33:20 11/09/19 23 11/08/2022 COMP. METAB OLIC PANEL AST 16 U/L 0-32 normal Not Available [facility] [address] [place] [address], [address], 11/08/2022 13:33:20 11/09/19 23 11/08/2022 COMP. METAB OLIC PANEL ALT 11 U/L 0-33 normal Not Available [facility] [address] [place], [address], 11/08/2022 13:33:20 11/09/19 23 11/08/2022 COMP. METAB OLIC PANEL GFR 37 >= 60 abnormal NOT E New calcu latio n for GFR (CKD- EPI 2020) is formu lated witho ut race adjus tment facto rs at the recom menda tion of the [employer] of Nephr ology . This calcu latio n has not been valid ated in pregn ant women . For pedia tric patie nts refer to https ://andrew strong.jann nicole/rivka raines s/JAE QI/gf r_cal culat orPed Not Available [facility] [address] [place] [address], [address], 11/08/2022 13:33:20 10/11/19 24 10/11/2023 COMPL ETE BLOOD COUNT white blood cells 5.2 10*3/ uL 3.8-10 .8 normal Not Available [facility] [address] [place], [address], 10/11/2023 15:55:03 10/11/19 24 10/11/2023 COMPL ETE BLOOD COUNT red blood cells 3.15 10*6/ uL 3.80-5 .20 low Not Available [facility] [address] [place], [address], 10/11/2023 15:55:03 10/11/19 24 10/11/2023 COMPL ETE BLOOD COUNT hemoglobin 9.7 g/dL 12.0-1 6.0 low Not Available [facility] [address] [place] [address], [address], 10/11/2023 15:55:03 10/11/19 24 10/11/2023 COMPL ETE BLOOD COUNT hematocrit 29.0 % 35.0-4 7.0 low Not Available [facility] [address] [place] [address], [address], 10/11/2023 15:55:03 10/11/19 24 10/11/2023 COMPL ETE BLOOD COUNT MCV 92 fL 80-100 normal Not Available [facility] [address] [place] [address], [address], 10/11/2023 15:55:03 10/11/19 24 10/11/2023 COMPL ETE BLOOD COUNT MCH 31 pg 26-35 normal Not Available [facility] [address] [place] [address], [address], 10/11/2023 15:55:03 10/11/19 24 10/11/2023 COMPL ETE BLOOD COUNT MCHC 34 g/dL 32-36 normal Not Available [facility] [address] [place] [address], [address], 10/11/2023 15:55:03 10/11/19 24 10/11/2023 COMPL ETE BLOOD COUNT RDW 13.6 % 11.0-1 5.0 normal Not Available [facility] [address] [place] [address], [address], 10/11/2023 15:55:03 10/11/19 24 10/11/2023 COMPL ETE BLOOD COUNT MPV 7.6 fL 6.2-10 .5 normal Not Available [facility] [address] [place] [address], [address], 10/11/2023 15:55:03 10/11/19 24 10/11/2023 COMPL ETE BLOOD COUNT platelet count 269 10*3/ uL 150-40 0 normal Not Available [facility] [address] [place] [address], [address], 10/11/2023 15:55:03 10/11/19 24 10/11/2023 COMPL ETE BLOOD COUNT neutrophil,a bsolute 3.7 10*3/ uL 1.6-8. 4 normal Not Available [facility] [address] [place] [address], [address], 10/11/2023 15:55:03 10/11/19 24 10/11/2023 COMPL ETE BLOOD COUNT lymphocyte,a bsolute 0.9 10*3/ uL 0.4-5. 1 normal Not Available [facility] [address] [place] [address], [address], 10/11/2023 15:55:03 10/11/19 24 10/11/2023 COMPL ETE BLOOD COUNT monocyte,abs olute 0.4 10*3/ uL 0.0-1. 2 normal Not Available [facility] [address] [place] [address], [address], 10/11/2023 15:55:03 10/11/19 24 10/11/2023 COMPL ETE BLOOD COUNT eosinophil,a bsolute 0.1 10*3/ uL 0.0-0. 8 normal Not Available [facility] [address] [place] [address], [address], 10/11/2023 15:55:03 10/11/19 24 10/11/2023 COMPL ETE BLOOD COUNT basophil,abs olute 0.1 10*3/ uL 0.0-0. 3 normal Not Available [facility] [address] [place] [address], [address], 10/11/2023 15:55:03 10/11/19 24 10/11/2023 COMPL ETE BLOOD COUNT % neutrophils 71.5 % 42.0-7 8.0 normal Not Available [facility] [address] [place] [address], [address], 10/11/2023 15:55:03 10/11/19 24 10/11/2023 COMPL ETE BLOOD COUNT % lymphocytes 17.2 % 11.0-4 7.0 normal Not Available [facility] [address] [place] [address], [address], 10/11/2023 15:55:03 10/11/19 24 10/11/2023 COMPL ETE BLOOD COUNT % monocytes 8.1 % 0.0-11 .0 normal Not Available [facility] [address] [place] [address], [address], 10/11/2023 15:55:03 10/11/19 24 10/11/2023 COMPL ETE BLOOD COUNT % eosinophils 2.1 % 0.0-7. 0 normal Not Available [facility] [address] [place] [address], [address], 10/11/2023 15:55:03 10/11/19 24 10/11/2023 COMPL ETE BLOOD COUNT % basophils 1.1 % 0.0-3. 0 normal Not Available [facility] [address] [place] [address], [address], 10/11/2023 15:55:03 10/11/19 24 10/11/2023 COMPL ETE BLOOD COUNT nucleated red cells 0.1 % 0.0-0. 9 normal Not Available [facility] [address] [place] [address], [address], 10/11/2023 15:55:03 10/11/19 24 10/11/2023 COMPL ETE BLOOD COUNT nucleated RBCs, absolute 0.01 10*3/ uL not estab. normal Not Available [facility] [address] [place] [address], [address], 10/11/2023 15:55:03 10/11/19 24 10/11/2023 COMP. METAB OLIC PANEL glucose 98 mg/dL 74-100 normal Not Available [facility] [address] [place] [address], [address], 10/11/2023 16:24:23 10/11/19 24 10/11/2023 COMP. METAB OLIC PANEL blood urea nitrogen 20 mg/dL 6-20 normal Not Available [facility] [address] [place] [address], [address], 10/11/2023 16:24:23 10/11/19 24 10/11/2023 COMP. METAB OLIC PANEL creatinine 1.51 mg/dL 0.50-0 .95 high Not Available [facility] [address] [place] [address], [address], 10/11/2023 16:24:23 10/11/19 24 10/11/2023 COMP. METAB OLIC PANEL BUN/creatini ne ratio 13 (calc ) 10-20 normal Not Available [facility] [address] [place] [address], [address], 10/11/2023 16:24:23 10/11/19 24 10/11/2023 COMP. METAB OLIC PANEL sodium 142 mmol/ L 136-14 5 normal Not Available [facility] [address] [place] [address], [address], 10/11/2023 16:24:23 10/11/19 24 10/11/2023 COMP. METAB OLIC PANEL potassium 4.2 mmol/ L 3.4-5. 0 normal Not Available [facility] [address] [place] [address], [address], 10/11/2023 16:24:23 10/11/19 24 10/11/2023 COMP. METAB OLIC PANEL chloride 106 mmol/ L 98-107 normal Not Available [facility] [address] [place] [address], [address], 10/11/2023 16:24:23 10/11/19 24 10/11/2023 COMP. METAB OLIC PANEL carbon dioxide 26 mmol/ L 22-31 normal Not Available [facility] [address] [place] [address], [address], 10/11/2023 16:24:23 10/11/19 24 10/11/2023 COMP. METAB OLIC PANEL anion gap 10 (calc ) 7-25 normal Not Available [facility] [address] [place] [address], [address], 10/11/2023 16:24:23 10/11/19 24 10/11/2023 COMP. METAB OLIC PANEL calcium 8.4 mg/dL 8.6-10 .2 low Not Available [facility] [address] [place] [address], [address], 10/11/2023 16:24:23 10/11/19 24 10/11/2023 COMP. METAB OLIC PANEL total protein 6.1 g/dL 6.4-8. 3 low Not Available [facility] [address] [place] [address], [address], 10/11/2023 16:24:23 10/11/19 24 10/11/2023 COMP. METAB OLIC PANEL albumin 3.8 g/dL 3.5-5. 2 normal Not Available [facility] [address] [place] [address], [address], 10/11/2023 16:24:23 10/11/19 24 10/11/2023 COMP. METAB OLIC PANEL globulin 2.3 1.5-4. 5 normal Not Available [facility] [address] [place] [address], [address], 10/11/2023 16:24:23 10/11/19 24 10/11/2023 COMP. METAB OLIC PANEL albumin/glob ulin ratio 1.7 (calc ) 1.1-2. 5 normal Not Available [facility] [address] [place] [address], [address], 10/11/2023 16:24:23 10/11/19 24 10/11/2023 COMP. METAB OLIC PANEL bilirubin, total 0.2 mg/dL 0.1-1. 2 normal Not Available [facility] [address] [place] [address], [address], 10/11/2023 16:24:23 10/11/19 24 10/11/2023 COMP. METAB OLIC PANEL alkaline phosphatase 51 U/L 30-121 normal Not Available [facility] [address] [place], [address], 10/11/2023 16:24:23 10/11/19 24 10/11/2023 COMP. METAB OLIC PANEL AST 18 U/L 0-32 normal Not Available [facility] [address] [place] [address], [address], 10/11/2023 16:24:23 10/11/19 24 10/11/2023 COMP. METAB OLIC PANEL ALT 13 U/L 0-33 normal Not Available [facility] [address] [place], [address], 10/11/2023 16:24:23 10/11/19 24 10/11/2023 COMP. METAB OLIC PANEL GFR 34 >= 60 abnormal NOT E New calcu latio n for GFR (CKD- EPI 2020) is formu lated witho ut race adjus tment facto rs at the recom menda tion of the [employer] and [employer] Nephr ology . This calcu latio n has not been valid ated in pregn ant women . For pedia long parrae nts refer to https ://andrew strong.jann nicole/rivka raines s/DORINDAO QI/gf r_cal culat orPed Not Available [facility] [address] [place], [address], 10/11/2023 16:24:23 10/11/19 24 10/11/2023 IRON PANEL -TOTA L AND TIBC iron 82 ug/dL 37-145 normal Not Available [facility] [address] [place] [address], [address], 10/11/2023 16:24:24 10/11/19 24 10/11/2023 IRON PANEL -TOTA L AND TIBC total iron binding cap. 491 ug/dL _(kyree c) 250-45 0 high Not Available [facility] [address] [place] [address], [address], 10/11/2023 16:24:24 10/11/19 24 10/11/2023 IRON PANEL -TOTA L AND TIBC unsat.iron binding cap. 409 ug/dL 112-34 7 high Not Available [facility] [address] [place] [address], [address], 10/11/2023 16:24:24 10/11/19 24 10/11/2023 IRON PANEL -TOTA L AND TIBC % saturation 17 %_(ca lc) 15-50 normal Not Available [facility] [address] [place] [address], [address], 10/11/2023 16:24:24 10/11/19 24 10/11/2023 JUANA TIN ferritin 10 NG/mL 13-157 low Not Available [facility] [address] [place] [address], [address], 10/11/2023 16:24:26 Result Notes None recorded. Problems Name Problem SNOMED Code Status Onset Date Resolution Date Notes Provider Name and Address Organization Details Recorded Time Anemia 269979895 Active 020 Sue Hatch [facility] 0 15:47:46 Iron deficiency anemia 63189248 Active 020 CHANEL KAMARA MD [address] [place] [address], [address] , [facility] 0 15:50:13 Crohn's disease 55766267 Active 020 CHANEL KAMARA MD [address] [place], [address], [facility] 0 15:50:14 Problem Notes None recorded. Procedures Surgical History Date Name Laterality Status Provider Name and Address Organization Details Recorded Time 11/20/19 23 Hem/Onc Treatment Encounter completed Robe Shelton [facility] 11/19/2022 15:42:45 11/13/19 23 Hem/Onc Treatment Encounter completed Jessa Gentry [facility] 11/12/2022 15:42:46 11/23/19 22 Hem/Onc Treatment Encounter completed Laura Sanders [facility] 11/22/2021 14:24:52 11/16/19 22 Hem/Onc Treatment Encounter completed Blanca Nguyen [facility] 11/15/2021 15:11:13 01/04/20 20 Hem/Onc Treatment Encounter completed Jessa Gentry [facility] 01/04/2020 13:38:36 12/29/19 20 Hem/Onc Treatment Encounter completed Aimee Cinnamon [facility] 12/29/2019 12:09:09 08/19/19 20 Hem/Onc Treatment Encounter completed Aimee Cinnamon [facility] 08/19/2019 14:33:51 08/12/19 20 Hem/Onc Treatment Encounter completed Jessa Gentry [facility] 08/12/2019 15:37:05 08/07/19 20 colonoscopy completed Susan Smith [facility] 12/24/2019 13:49:20 Appendectomy completed Susan Smith [facility] 08/03/2019 14:10:21 Cholecystectomy completed Susan Smith [facility] 08/03/2019 14:10:29 Imaging Results None recorded. Procedure Notes None recorded. Medical Equipment None Reported. Allergies Allergen ID Allergen Name Allergen Category Reaction Reaction Severity Criticality Documentation Date Start Date Code Code System Note Provider Name and Address Organization Details Recorded Time 170304 Celestone medicatio n Not available Not available Not available 08/03/2019 9 RxNorm Susan Smith [facility] 0 15:04:10 [id number] E-Mycin medicatio n Not available Not available Not available 08/03/2019 8 RxNorm Susan Smith [facility] 0 14:09:31 [id number] Product containin g penicilli n (product) medicatio n Not available Not available Not available 08/03/2019 69774 8001 SNOMED Susan Smith [facility] 0 14:09:35 511139 streptomy kathy medicatio n Not available Not available Not available 08/03/2019 47374 RxNorm Susan Smith [facility] 0 14:09:58 959705 tetracycl ine medicatio n Not available Not available Not available 08/03/2019 36394 RxNorm Susan Smith [facility] 0 14:10:04 085836 clonidine medicatio n Not available Not available Not available 08/05/2019 2599 RxNorm Waleska Robins [facility] 2 14:49:16 092648 InFed medicatio n Not available Not available Not available 08/12/2019 89784 1 RxNorm Jessa Rinaldi [facility] 0 14:54:33 Medications Name Sig Start Date Stop Date Status Note LastModified by Organization Details LastModified Time Xanax 0.5 mg tablet Take 0.5 tablets as needed by oral route as needed. active Not Available Not Available No t Available vitamin [id number] B1 1,000 mcg-100 mg/mL injection solution Take 1 mL every month by injection route. active Not Available Not Available No t Available azathioprin e 50 mg tablet Take 1 tablet every day by oral route. active Not Available Not Available No t Available benazepril 20 mg-hydrochl orothiazide 12.5 mg tablet 1 tablet each qam active Not Available Not Available No t Available aspirin 81 mg tablet,ratna yed release Take 1 tablet every day by oral route. 02/08 completed Not Available Not Available Not Available alprazolam 0.25 mg tablet Take 1 tablet 3 times a day by oral route. 11/12 completed Not Available Not Available Not Available potassium citrate ER 10 mEq (1,080 mg) tablet,exte nded release Take 1 tablet twice a day by oral route. active Not Available Not Available No t Available Tylenol 325 mg tablet Take 1 tablet as needed by oral route as needed. active Not Available Not Available No t Available amlodipine 10 mg-benazepr il 20 mg capsule 1 tablet each qam active Not Available Not Available No t Available Klor-Con M20 mEq tablet,exte nded release Take 1 tablet every day by oral route. 11/12 completed Not Available Not Available Not Available fenofibrate micronized 48 mg tablet Take 1 tablet every day by oral route. active Not Available Not Available No t Available Tricor 145 mg tablet Take 1 tablet every day by oral route. active Not Available Not Available No t Available Calcium-Vit bone D daily 11/08 completed Not Available Not Available Not Available ICaps AREDS 1 tablet twice a day active Not Available Not Available No t Available Vitals Date Recorded Body height Body mass index (BMI) Body weight Body temperature Heart rate Oxygen saturation Oxygen saturation in Arterial blood by Pulse oximetry Systolic And Diastolic Provider Name and Address Organization Details Last Updated DateTime 3 160.02 cm 23.5 kg/m2 30638.3 4 g 97.8 [degF] 71 /min 98 % 98 % 173/72 mm[Hg] Waleska Robins [facility] 3 14:14:14 Date Recorded Body height Body mass index (BMI) Body weight Heart rate Oxygen saturation Oxygen saturation in Arterial blood by Pulse oximetry Systolic And Diastolic Provider Name and Address Organization Details Last Updated DateTime 3 160.02 cm 23.4 kg/m2 55633.9 1 g 78 /min 97 % 97 % 177/61 mm[Hg] Jessa Rinaldi [facility] 3 15:22:25 Date Recorded Body height Body mass index (BMI) Body weight Body temperature Heart rate Oxygen saturation Oxygen saturation in Arterial blood by Pulse oximetry Systolic And Diastolic Provider Name and Address Organization Details Last Updated DateTime 3 160.02 cm 23.1 kg/m2 58819.1 6 g 97.5 [degF] 84 /min 100 % 100 % 152/78 mm[Hg] Cindy Guillen [facility] 3 14:53:22 Date Recorded Body height Body temperature Heart rate Oxygen saturation Oxygen saturation in Arterial blood by Pulse oximetry Systolic And Diastolic Provider Name and Address Organization Details Last Updated DateTime 2 160.02 cm 97.9 [degF] 81 /min 99 % 99 % 175/64 mm[Hg] Laura Tommy [facility] 2 13:55:36 Date Recorded Body height Body mass index (BMI) Body weight Body temperature Oxygen saturation Oxygen saturation in Arterial blood by Pulse oximetry Heart rate Systolic And Diastolic Provider Name and Address Organization Details Last Updated DateTime 2 160.02 cm 22.9 kg/m2 43118.1 7 g 98.2 [degF] 96 % 96 % 70 /min 149/68 mm[Hg] Waleska Robins [facility] 2 15:12:56 Social History Question Answer Notes LastModified by [employer] Details LastModified Time Tobacco Smoking Status Former Smoker Susan Smith [facility] 08/05/2019 15:07:33 How Much Tobacco Do You Chew? None [email or web address] Information not available 08/05/2019 Live Alone Or With Others? With Others [email or web address] Information not available 08/05/2019 Education Level High School [email or web address] Informat ion not available 08/05/2019 Learning Preferences Computer/Int ernet [email or web address] Information not available 11/09/2021 Exposure To Smoke No Informa tion not available 08/05/2019 Marital Status [email or web address] Informatio n not available 08/05/2019 What Was The Date Of Your Most Recent Tobacco Screening? 11/08/2022 [email or web address] Information not available 11/08/2022 How Many Children Do You Have? 0 [email or web address] Information not available 08/05/2019 What Is Your Relationship Status? [email or web address] Information not available 02/08/2022 How Much Tobacco Do You Smoke? No [email or web address] Information not available 08/05/2019 Has Tobacco Cessation Counseling Been Provided? No [email or web address] Information not available 02/08/2022 How Many Years Have You Smoked Tobacco? 10 Information not available 08/05/2019 Have You Recently Traveled Abroad? No [email or web address] Information not available 02/08/2022 Sex: Unknown Functional Status Question Answer Note LastModified by Organizat ion Details LastModified Time Do you use any illicit or recreational drugs? No [email or web address] Information not available 02/08/2022 What is your level of alcohol consumption? None [email or web address] Information not available 08/05/2019 Do you or have you ever used smokeless tobacco? Never used smokeless tobacco [email or web address] Information not available 08/05/2019 What is your occupation? retired Information not available 08/05/2019 Do you or have you ever used e-cigarettes or vape? Never used electronic cigarettes [email or web address] Information not available 08/05/2019 Mental Status None recorded. Family History Relationship Description Onset Age of this Age Resolved Age Notes LastModified by Organization Details LastModified Time Mother Tuberculosis [email or web address] Not avai lable 08/05/2019 15:05:42 Mother Family history of malignant neoplasm [email or web address] Not available 2019 15:05:58 Mother Family history of stroke [email or web address] Not available 2019 15:06:07 Father Hypertensive disorder [email or web address] Not available 2019 15:06:14 Sister CREST syndrome [email or web address] Not available 2019 15:06:58 Sister Raynaud's disease [email or web address] Not available 2019 15:07:12 Sister Family history of malignant neoplasm [email or web address] Not available 2019 15:07:19 Notes:lupus-sister, Medical History Condition Response Anxiety Disorder Y Other Anemia Y Chronic Obstructive Pulmonary Disease Y High Cholesterol Y Hypertension Y Asthma Y Cataract Y Glasses/Contacts Y Gynecological HistoryNo gynecological history recorded. Obstetrics History GPAL:G 0 P 0 0 0 0 Immunizations Vaccine Type Date Status Note Provider Nam e and Address Organization Details Recorded Time Influenza, split virus, quadrivalent, preservative 9 completed Susan Smith [facility] 08/05/2019 15:05:06 Influenza, high-dose, quadrivalent, PF 0 completed Pia Gooden [facility] 09/30/2020 15:02:22 COVID-19, mRNA, LNP-S, PF, 100 mcg/0.5mL dose or 50 mcg/0.25mL dose 1 completed Pia Gooden [facility] 09/30/2020 15:02:56 COVID-19, mRNA, LNP-S, PF, 100 mcg/0.5mL dose or 50 mcg/0.25mL dose 1 completed Pia Gooden [facility] 09/30/2020 15:03:03 pneumococcal, unspecified formulation 9 completed Pia Gooden [facility] 09/30/2020 15:05:42 COVID-19, mRNA, LNP-S, PF, 100 mcg/0.5mL dose or 50 mcg/0.25mL dose 1 completed Waleska Robins [facility] 11/09/2021 14:53:18 Influenza, split virus, quadrivalent, preservative 1 completed Waleska Robins [facility] 11/09/2021 14:53:57 COVID-19, mRNA, LNP-S, PF, 100 mcg/0.5mL dose or 50 mcg/0.25mL dose 2 completed Waleska Robins [facility] 02/08/2022 15:02:05 Past Encounters Encounter ID Performer Location Encounter Start Date Encounter Closed Date Diagnosis/Indication Diagnosis SNOMED-CT Code Diagnosis ICD10 Code Diagnosis Note [id number] ALIE VASQUEZ MD GASTRO [address] [place] [address] 1 06/27/2016 14:50:27 06/29/2016 09:08:29 [id number] NILTON ANTUNEZ MD DERMATOLO GY [place] [address] [place] [address] 09/10/2016 14:03:36 09/14/2016 10:41:16 [id number] CODEY YATES MD BONE DENSITY [address] [place] [address] 06/21/2017 14:46:22 06/21/2017 15:54:07 [id number] STEWART DWYER MD OPHTHALMO LOGY [place] [address] [place] [address] 07/01/2017 15:02:48 07/03/2017 08:42:06 [id number] ALIE VASQUEZ MD GASTRO [address] [place] [id number] 1 07/11/2017 13:41:14 07/12/2017 08:31:16 [id number] STEWART DWYER MD OPHTHALMO LOGY [address] ,[address] [place], [place] [address] 12/12/2017 09:13:21 12/12/2017 12:18:38 [id number] STEWART DWYER MD OPHTHALMO LOGY [address] ,[address] [place] [address] 5 03/19/2018 09:35:46 03/19/2018 13:36:51 [id number] STEWART DWYER [facility] [address] ,[address] [place] [address] 5 03/28/2018 15:34:23 03/31/2018 13:21:09 [id number] ALIE VASQUEZ MD GASTRO SB [address] [place] [address] 1 07/16/2018 14:41:23 07/17/2018 07:42:34 [id number] NINA STONE MD ENT SB [address] [place] [address] 1 11/24/2018 14:20:00 11/25/2018 07:50:06 [id number] NINA STONE MD ENT SB [address] [place] [address] 1 12/23/2018 12:48:30 12/23/2018 13:37:25 [id number] STEWART DWYER [facility] [address] ,[address] [place], [place] [address] 02/26/2019 13:43:02 02/26/2019 16:32:05 [id number] [place] [address] [place] [address] 07/29/2019 14:32:33 07/29/2019 15:38:03 [id number] CHANEL KAMARA MD HEM/ONC SB CLOSED [address] [place] [address] 08/05/2019 14:39:21 08/05/2019 16:14:44 Crohn's disease 55987175 K50.90 Iron defic iency anemia 67564467 D50.9 [id number] CHANEL KAMARA MD HEM/ONC SB CLOSED [address] [place] [address] 08/12/2019 13:40:28 08/21/2019 03:47:31 [id number] CHANEL KAMARA MD HEM/ONC SB CLOSED [address] [place] [address] 08/19/2019 13:28:28 08/27/2019 03:47:40 [id number] ALIE VASQUEZ MD SURGERY SCHEDULE [address] [place] [address] 1 09/10/2019 10:13:28 09/10/2019 10:14:47 [id number] ALIE VASQUEZ MD GASTRO SB [address] [facility] [place] [address] 1 12/10/2019 13:31:22 12/11/2019 07:20:46 [id number] CHANEL KAMARA MD HEM/ONC SB CLOSED [address] 1 12/24/2019 13:15:18 12/24/2019 14:07:18 Anemia 821173134 D64.9 Iron defic iency anemia 37983117 D50.9 [id number] JESSE SIEGEL MD HEM/ONC SB CLOSED [address] [place] [address] 12/29/2019 11:23:09 12/29/2019 13:23:02 [id number] JESSE SIEGEL MD HEM/ONC SB CLOSED [address] [place] [address] 1 01/04/2020 11:58:23 01/04/2020 13:39:07 [id number] CHANEL KAMARA MD HEM/ONC SB CLOSED [address] [place] [address] 03/25/2020 12:45:35 03/25/2020 13:16:16 Iron deficiency anemia 77312339 D50.9 [id number] CODEY YATES MD BONE DENSITY [address] [place] [address] 1 05/13/2020 12:33:23 05/13/2020 13:15:32 [id number] STEWART DWYER MD OPHTHALMO LOGY [facility] [[email or web address]] [address] [facility] [facility] [address] [place] [address] 08/08/2020 14:34:14 08/08/2020 17:35:05 [id number] CHANEL KAMARA MD HEM/ONC SB CLOSED [address] [place] [address] 09/30/2020 14:59:08 10/12/2020 10:25:34 Crohn's disease 79892633 K50.90 Iron defic iency anemia 29951109 D50.9 [id number] ALIE VASQUEZ MD GASTRO SB [address] [facility] [address] [place] [address] 01/10/2021 15:10:41 01/12/2021 08:42:03 [id number] STEWART DWYER MD OPHTHALMO LOGY [facility] [[email or web address]] [address] [facility] ,3[address] [place] [address] 02/06/2021 14:32:30 02/06/2021 15:46:24 [id number] NILTON ANTUNEZ MD DERMATOLO GY [facility] [[email or web address]] [address] [place] [address] 08/22/2021 15:09:03 08/22/2021 16:07:39 [id number] CHANEL KAMARA MD HEM/ONC SB CLOSED [address] [place] [address] 11/09/2021 14:35:43 11/09/2021 15:16:16 Anemia 457721577 D64.9 Iron defic iency anemia 38692627 D50.9 [id number] CHANEL KAMARA MD HEM/ONC SB CLOSED [address] [place] [address] 11/15/2021 12:51:39 11/15/2021 15:12:00 [id number] CHANEL KAMARA MD HEM/ONC SB CLOSED [address] [place] [address] 11/22/2021 12:50:30 11/22/2021 15:05:56 [id number] ALIE VASQUEZ MD GASTRO SB [address] [facility] [address] [place] [address] 1 01/03/2022 14:36:08 01/04/2022 07:41:04 [id number] ALIE VASQUEZ MD SURGERY SCHEDULE [address] [place] [address] 1 01/16/2022 13:48:55 01/16/2022 13:52:34 [id number] CHANEL KAMARA MD HEM/ONC SB CLOSED [address] 1 02/08/2022 14:52:07 02/08/2022 15:27:49 Iron deficiency anemia 96096063 D50.9 [id number] STEWART DWYER MD OPHTHALMO [address] ,[address] [place] [address] 5 05/03/2022 14:44:26 05/03/2022 16:39:58 [id number] ALIE VASQUEZ MD GASTRO SB [address] [place] [address] 1 07/19/2022 14:16:26 07/20/2022 10:07:06 [id number] CHANEL KAMARA MD HEM/ONC SB CLOSED [address] [place] [address] 1 11/08/2022 14:01:47 11/08/2022 15:17:03 Anemia 646332815 D64.9 Iron defic iency anemia 11289473 D50.9 [id number] ELEAZAR BABB MD HEM/ONC SB CLOSED [address] 1 11/12/2022 13:45:32 11/12/2022 16:18:08 [id number] CHANEL KAMARA MD HEM/ONC SB CLOSED [address] 1 11/19/2022 13:45:57 11/19/2022 15:43:36 [id number] STEWART DWYER MD OPHTHALMO [address] ,[address] [place] [address] 5 05/09/2023 13:45:48 05/09/2023 15:17:18 [id number] STEWART DWYER MD OPHTHALMO LOGY [address] [place] 5 06/21/2023 12:48:27 06/21/2023 13:21:45 [id number] ALIE VASQUEZ MD GASTRO [address] [place] [address] 1 07/18/2023 14:14:16 07/18/2023 15:07:16 [id number] STEWART DWYER MD OPHTHALMO LOGJenise [address] [place],[address] [place] [address] 5 09/05/2023 13:15:33 09/05/2023 14:42:54 [id number] STEWART DWYER MD OPHTHALMO LOGY [address] [place] [address] 5 11/08/2023 14:12:55 11/08/2023 15:46:28 [id number] STEWART DWYER MD OPHTHALMO LOGY [address] [place],[address] [place] [address] 5 05/18/2024 13:27:58 05/18/2024 14:17:25 [id number] ALIE VASQUEZ MD GASTRO SB [address] [place] [address] 09/09/2024 12:57:54 09/10/2024 08:34:59 Health Concerns Section Related Observation LastModified by Organization Detai ls LastModified Time None Recorded Concern Status LastModified by Organization Details LastModified Time None Recorded Advance Directives Directive None Recorded Payers Insurance Date Sequence Insurance Name Policy Number Policy Gupta Covered Member ID Gupta Member ID Guarantor Name 11/24/2024 1 [place]ARE[place] Alejandra Ramos [id number] Alejandra Ramos 11/24/2024 2 [employer] (MEDICARE SUPPLEMENT) Alejandra Ramos [id number] Alejandra Ramos 10/14/2019 2 UNSPECIFIED REMIT PAYOR Alejandra Ramos 09/09/2024 2 [employer] (MEDICARE SUPPLEMENT) Alejandra Ramos [id number] Alejandra Ramos Notes Date Note Type Note Provider Name and Address Organization Details Recorded Time 2 text/html HPIReported bypatient.patient accompanied by:patient accompanied by Advanced Directives / BioBank AuthorizationsAdvanced Directives? YES Dischargedischarge mode ambulatory; discharge disposition stable Distress ScreeningHas the distress screening been completed in the last 45 days? NO; Distress level 0 no stress Family Problemsno family problems Emotional Problemsanxiety Spiritual/Religiousspiritua l/anabaptist problems? NO Physical Problemsdiarrhea(crohns) Nutrition ScreeningNutrition Screening NO; special diet restrictions? describe: (crohns disease); Nutrition counseling last 6 months? NO This is a very pleasant 81-year-old female, in good overall shape, has a history of Crohn's disease and has been seen by me really on and off since July of 2019 for recurrent iron deficiency. She has followed closely by Dr. Alie Vasquez and they have been working on her Crohn's, which has gotten under much better control in the last few years. She also been seen by Dr. Nina Herman as well before. She also has a history of an ileocecal surgery. She had a recent colonoscopy done by Dr. Vasquez that looks pretty good. She had had recurrent iron deficiency and was treated with Feraheme, which was done about 6 to 8 weeks ago. She has strong ice chewing and other side effects when she gets down. Since then, she has felt much better. Her hemoglobin is down to 11.5 with a normal iron saturation and a very good ferritin that is close to 100. CHANEL KAMARA MD [address] [place] [address], [phone], [facility] 02/09/2022 08:33:02 3 text/html HPIReported bypatient.patient accompanied by:patient accompanied by Advanced Directives / BioBank AuthorizationsAdvanced Directives? YES Dischargedischarge mode ambulatory; discharge disposition stable Distress ScreeningHas the distress screening been completed in the last 45 days? NO; Distress level 0 no stress Family Problemsno family problems Emotional Problemsworry; anxiety Spiritual/Religiousspiritua l/anabaptist problems? NO Physical Problemsdiarrhea(crohns); eep issues; Pain Nutrition ScreeningNutrition Screening NO; special diet restrictions? describe: (crohns disease); Nutrition counseling last 6 months? NO Ms. Ramos is a 82-year-old female who has now been seen by me since July 2019. She has a history of Crohn's disease and lot of GI absorptive issues and also has ongoing chronic kidney disease and has had repetitive issues with iron deficiency. At this juncture, we have pretty much had to give her parental iron about once a year to improve her overall quality of life. She says more recently she has been chewing ice, getting more weak, fatigued and tired and that sort of borne out by the labs. Her hemoglobin is less than 10. Her iron sat are low. Her ferritin is around 9 and she continues to have stage III chronic kidney disease with the creatinine of 1.39. CHANEL KAMARA MD [address] [place] [address], [phone], [facility] 11/09/2022 12:48:49 OBGyn Episode No OBEpisode recorded.
--- OUTSIDE RECORDS SUMMARY | 2025-01-19 15:39 | XMS_ITS | Encounter Summary ---
Author Organization [facility] Address [address] [place] [address] Care Team Providers Care Director Of Direct Marketing Name Role Phone System, Provider Not In MD Primary Care Provider Unavailable Sal Mar MD Unavailable [phone] Edson Pendleton MD Primary Care Provider [phone] Encounter Details Date Type Department Care Team (Late st Contact Info) Description 01/16/2022 Orders Only [facility] @ [facility] [address] [place] [address] Fidel Vasquez MD [address] [place], [place] [id number] Social History Tobacco Use Types Packs/Day Years [...] Procedure Name Priority Date/Time Associated Diagnosis Comments SURGICAL PATHOLOGY EXAM Routine 01/16/2022 documented in this encounter Results * Surgical Pathology Exam (01/16/2022) External Surgical Pathology SEE BELOW [facility] Comment: Department of Pathology Surgical Pathology Report NAME:ALEJANDRA MALONE PATH.:[id number] Copy to: Diagnosis: A) Ileum biopsy: Small bowel mucosa with no pathologic abnormality - No active inflammation or dysplasia identified; clinical history of Crohn's disease B) Random colon biopsy: Colonic mucosa with no pathologic abnormality - No active colitis or dysplasia identified; clinical history of Crohn's disease SOURCE OF SPECIMEN: ILEUM BIOPSY COLON BIOPSY, RANDOM CLINICAL INFORMATION: HX CROHN'S Gross Description: A) Received in formalin labeled with the patient's name and designated as ileum biopsy are two fragments of pale rojo tissue measuring 0.2 cm and 0.3 cm. Entirely submitted in one cassette. B) Received in formalin labeled with the patient's name and designated as random colon biopsy are multiple pieces of rojo soft tissue ranging in size from 0.1 cm to 0.7 cm. Entirely submitted in one cassette. JAB 01/16/2022 05:49 PM Microscopic Description: Microscopic examination performed. <Sign Out Signature> KEM GROVER MD Signed Out Date: 01/17/2022 10:48 Page 1 of 1 01/16/2022 01/16/2022 4:4 6 PM EDT Fidel Vasquez MD LAB PATHOLOGY ORDERABLES Fin al Result Performing Organization Address City/State/[facility] Co de Phone Number [facility] [address] [place] [address], documented in this encounter Visit Diagnoses Not on filedocumented in this encounter Care Teams Director Of Direct Marketing Relationship Specialty Start Date End Date System, Provider Not In, [facility] [place] [address] PCP - General Family Medicine 07/15/21 10/20/23 Edson Pendleton MD [address] [place] [address] PCP - General 10/21/23 Sal Mar MD [address] [place] [address] Medical Oncologist Hematology and Oncology 10/16/23 documented as of this encounter
--- OUTSIDE RECORDS SUMMARY | 2025-01-19 15:39 | XMS_ITS | Data Portability ---
Author Organization ELIUD ADÁN [facility] [place] [facility] Address [address] [facility] [address] [place] [address] Care Team Providers Care Mechanical Lead Name Role Phone TYE AIDEN Primary Care Provider STEWART BALL Crew Supervisor Assessment No assessment recorded. Plan of Treatment Reminders Order Date Submit Date Provider Last Modified By Organization Details Last Modified Time Details Appointments LEVEL 2 2024 11:00A M STEWART BALL MD Not available Not available Not available RECHECK 2025 03:10P M ALIE VASQUEZ MD Not available Not available Not available Lab None recorded . Referral None recorded . Procedures None recorded . Surgeries None recorded . Imaging None recorded . Medication Orders Imuran 50 mg tablet 2024 025 [facility] [place] [place], [address], 09/14/2024 13:54:00 Imuran 50 mg tablet 2023 024 VAMSHI [facility] [place], [address], 07/18/2023 15:05:37 Patient TargetsNo targets recorded. 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 Results Created Date Observation Date Name Description Value Unit Range Abnormal Flag Note LastModifiedBy Organization Detail LastModifiedTime 07/18/19 24 07/18/2023 COMPL ETE BLOOD COUNT white blood cells 5.2 10*3/ uL 3.8-10 .8 normal Not Available [facility] [address] [place] [address], [phone], 07/18/2023 16:31:31 07/18/19 24 07/18/2023 COMPL ETE BLOOD COUNT red blood cells 3.81 10*6/ uL 3.80-5 .20 normal Not Available [facility] [address] [place] [address], [phone], 07/18/2023 16:31:31 07/18/19 24 07/18/2023 COMPL ETE BLOOD COUNT hemoglobin 11.7 g/dL 12.0-1 6.0 low Not Available [facility] [address] [place], [address], 07/18/2023 16:31:31 07/18/19 24 07/18/2023 COMPL ETE BLOOD COUNT hematocrit 34.3 % 35.0-4 7.0 low Not Available [facility] [address] [place], [address], 07/18/2023 16:31:31 07/18/19 24 07/18/2023 COMPL ETE BLOOD COUNT MCV 90 fL 80-100 normal Not Available [facility] [address] [place] [address], [address], 07/18/2023 16:31:31 07/18/19 24 07/18/2023 COMPL ETE BLOOD COUNT MCH 31 pg 26-35 normal Not Available [facility] [address] [place] [address], [address], 07/18/2023 16:31:31 07/18/19 24 07/18/2023 COMPL ETE BLOOD COUNT MCHC 34 g/dL 32-36 normal Not Available [facility] [address] [place] [address], [address], 07/18/2023 16:31:31 07/18/19 24 07/18/2023 COMPL ETE BLOOD COUNT RDW 14.2 % 11.0-1 5.0 normal Not Available [facility] [address] [place] [address], [address], 07/18/2023 16:31:31 07/18/19 24 07/18/2023 COMPL ETE BLOOD COUNT MPV 7.5 fL 6.2-10 .5 normal Not Available [facility] [address] [place] [address], [phone], 07/18/2023 16:31:31 07/18/19 24 07/18/2023 COMPL ETE BLOOD COUNT platelet count 321 10*3/ uL 150-40 0 normal Not Available [facility] [address] [place] [address], [address], 07/18/2023 16:31:31 07/18/19 24 07/18/2023 COMPL ETE BLOOD COUNT neutrophil,a bsolute 3.9 10*3/ uL 1.6-8. 4 normal Not Available [facility] [address] [place] [address], [address], 07/18/2023 16:31:31 07/18/19 24 07/18/2023 COMPL ETE BLOOD COUNT lymphocyte,a bsolute 0.8 10*3/ uL 0.4-5. 1 normal Not Available [facility] [address] [place] [address], [address], 07/18/2023 16:31:31 07/18/19 24 07/18/2023 COMPL ETE BLOOD COUNT monocyte,abs olute 0.3 10*3/ uL 0.0-1. 2 normal Not Available [facility] [address] [place] [address], [address], 07/18/2023 16:31:31 07/18/19 24 07/18/2023 COMPL ETE BLOOD COUNT eosinophil,a bsolute 0.1 10*3/ uL 0.0-0. 8 normal Not Available [facility] [address] [place] [address], [phone], 07/18/2023 16:31:31 07/18/19 24 07/18/2023 COMPL ETE BLOOD COUNT basophil,abs olute 0.1 10*3/ uL 0.0-0. 3 normal Not Available [facility] [address] [place] [address], [address], 07/18/2023 16:31:31 07/18/19 24 07/18/2023 COMPL ETE BLOOD COUNT % neutrophils 74.9 % 42.0-7 8.0 normal Not Available [facility] [address] [place] [address], [phone], 07/18/2023 16:31:31 07/18/19 24 07/18/2023 COMPL ETE BLOOD COUNT % lymphocytes 14.8 % 11.0-4 7.0 normal Not Available [facility] [address] [place] [address], [address], 07/18/2023 16:31:31 07/18/19 24 07/18/2023 COMPL ETE BLOOD COUNT % monocytes 6.6 % 0.0-11 .0 normal Not Available [facility] [address] [place] [address], [address], 07/18/2023 16:31:31 07/18/19 24 07/18/2023 COMPL ETE BLOOD COUNT % eosinophils 2.6 % 0.0-7. 0 normal Not Available [facility] [address] [place] [address], [address], 07/18/2023 16:31:31 07/18/19 24 07/18/2023 COMPL ETE BLOOD COUNT % basophils 1.1 % 0.0-3. 0 normal Not Available [facility] [address] [place] [address], [address], 07/18/2023 16:31:31 07/18/19 24 07/18/2023 COMPL ETE BLOOD COUNT nucleated red cells 0.1 % 0.0-0. 9 normal Not Available [facility] [address] [place] [address], [address], 07/18/2023 16:31:31 07/18/19 24 07/18/2023 COMPL ETE BLOOD COUNT nucleated RBCs, absolute 0.00 10*3/ uL not estab. normal Not Available [facility] [address] [place] [address], [phone], 07/18/2023 16:31:31 07/18/19 24 07/18/2023 COMP. METAB OLIC PANEL glucose 84 mg/dL 74-100 normal Not Available [facility] [address] [place] [address], [address], 07/18/2023 16:42:02 07/18/19 24 07/18/2023 COMP. METAB OLIC PANEL blood urea nitrogen 25 mg/dL 6-20 high Not Available [facility] [address] [place] [address], [address], 07/18/2023 16:42:02 07/18/19 24 07/18/2023 COMP. METAB OLIC PANEL creatinine 1.36 mg/dL 0.50-0 .95 high Not Available [facility] [address] [place] [address], [address], 07/18/2023 16:42:02 07/18/19 24 07/18/2023 COMP. METAB OLIC PANEL BUN/creatini ne ratio 18 (calc ) 10-20 normal Not Available [facility] [address] [place] [address], [address], 07/18/2023 16:42:02 07/18/19 24 07/18/2023 COMP. METAB OLIC PANEL sodium 143 mmol/ L 136-14 5 normal Not Available [facility] [address] [place] [address], [address], 07/18/2023 16:42:02 07/18/19 24 07/18/2023 COMP. METAB OLIC PANEL potassium 3.8 mmol/ L 3.4-5. 0 normal Not Available [facility] [address] [place] [address], [address], 07/18/2023 16:42:02 07/18/19 24 07/18/2023 COMP. METAB OLIC PANEL chloride 105 mmol/ L 98-107 normal Not Available [facility] [address] [place] [address], [address], 07/18/2023 16:42:02 07/18/19 24 07/18/2023 COMP. METAB OLIC PANEL carbon dioxide 26 mmol/ L 22-31 normal Not Available [facility] [address] [place] [address], [address], 07/18/2023 16:42:02 07/18/19 24 07/18/2023 COMP. METAB OLIC PANEL anion gap 12 (calc ) 7-25 normal Not Available [facility] [address] [place] [address], [address], 07/18/2023 16:42:02 07/18/19 24 07/18/2023 COMP. METAB OLIC PANEL calcium 8.5 mg/dL 8.6-10 .2 low Not Available [facility] [address] [place] [address], [address], 07/18/2023 16:42:02 07/18/19 24 07/18/2023 COMP. METAB OLIC PANEL total protein 6.7 g/dL 6.4-8. 3 normal Not Available [facility] [address] [place] [address], [address], 07/18/2023 16:42:02 07/18/19 24 07/18/2023 COMP. METAB OLIC PANEL albumin 3.9 g/dL 3.5-5. 2 normal Not Available [facility] [address] [place] [address], [address], 07/18/2023 16:42:02 07/18/19 24 07/18/2023 COMP. METAB OLIC PANEL globulin 2.8 1.5-4. 5 normal Not Available [facility] [address] [place] [address], [address], 07/18/2023 16:42:02 07/18/19 24 07/18/2023 COMP. METAB OLIC PANEL albumin/glob ulin ratio 1.4 (calc ) 1.1-2. 5 normal Not Available [facility] [address] [place] [address], [address], 07/18/2023 16:42:02 07/18/19 24 07/18/2023 COMP. METAB OLIC PANEL bilirubin, total 0.2 mg/dL 0.1-1. 2 normal Not Available [facility] [address] [place] [address], [address], 07/18/2023 16:42:02 07/18/19 24 07/18/2023 COMP. METAB OLIC PANEL alkaline phosphatase 42 U/L 30-121 normal Not Available [facility] [address] [place] [address], [address], 07/18/2023 16:42:02 07/18/19 24 07/18/2023 COMP. METAB OLIC PANEL AST 21 U/L 0-32 normal Not Available [facility] [address] [place] [address], [address], 07/18/2023 16:42:02 07/18/19 24 07/18/2023 COMP. METAB OLIC PANEL ALT 17 U/L 0-33 normal Not Available [facility] [address] [place] [address], [address], 07/18/2023 16:42:02 07/18/19 24 07/18/2023 COMP. METAB OLIC PANEL GFR 38 >= 60 abnormal NOT E New calcu latio n for GFR (CKD- EPI 2020) is formu lated witho ut race adjus tment facto rs at the recom menda tion of the Zohra claudio and Nikunj Del Rosarioe ty of Nephr ology . This calcu latio n has not been valid ated in pregn ant women . For pedia long parrae nts refer to https ://andrew strong.anoop nicole/rivka raines s/JAE QI/gf r_cal culat orPed Not Available [facility] [address] [place] [address], [address], 07/18/2023 16:42:02 07/18/19 24 07/18/2023 JUANA TIN ferritin 28 NG/mL 13-157 normal Not Available [facility] [address] [place] [address], [address], 07/18/2023 16:42:04 07/18/19 24 07/18/2023 IRON PANEL -TOTA L AND TIBC iron 63 ug/dL 37-145 normal Not Available [facility] [address] [place] [address], [address], 07/18/2023 16:42:06 07/18/19 24 07/18/2023 IRON PANEL -TOTA L AND TIBC total iron binding cap. 472 ug/dL _(kyree c) 250-45 0 high Not Available [facility] [address] [place], [address], 07/18/2023 16:42:06 07/18/19 24 07/18/2023 IRON PANEL -TOTA L AND TIBC unsat.iron binding cap. 409 ug/dL 112-34 7 high Not Available [facility] [address] [place], [address], 07/18/2023 16:42:06 07/18/19 24 07/18/2023 IRON PANEL -TOTA L AND TIBC % saturation 13 %_(ca lc) 15-50 low Not Available [facility] [address] [place] [address], [address], 07/18/2023 16:42:06 07/18/19 24 07/24/2023 THIOP URINE METAB OLITE S 6-tgn 207 pmol/ 8x10( 8)RBC 235-40 0 low This test was devel oped and its marlon tical perfo rmanc e kalpesh cteri stics have been deter mined by [facility] con[facility]. It has not been clear ed or appro allen by the FDA. This assay has been valid ated pursu ant to the CLIA regul ation s and is used for clini kyree purpo ses. Not Available [facility] [address] [place] [address], [phone], 07/24/2023 15:16:16 07/18/19 24 07/24/2023 THIOP URINE METAB OLITE S 6-mmpn <500 pmol/ 8x10( 8)RBC <5700 normal These resul ts are usefu l in asses sing a patie nt's metab olism of azath iopri ne (AZA) or 6-doc capto purin e (6-MP ). A 6-thi oguan ine (6-TG ) level great er than 235 pmol/ 8x10( 8) RBC has been assoc iated with remis sweta and very high level s have been assoc iated with leuco penia . 6-met hylme rcapt opuri ne (6-MM P) level s great er than 5700 pmol/ 8x10( 8) RBC may be assoc iated with hepat oxici ty. This test was devel oped and its marlon tical perfo rmanc e kalpesh cteri stics have been deter mined by [employer]. It has not been clear ed or appro allen by the FDA. This assay has been valid ated pursu ant to the CLIA regul ation s and is used for clini kyree purpo ses. Not Available [facility] [address] [place] [address], [address], 07/24/2023 15:16:16 10/11/19 24 10/11/2023 JUANA TIN ferritin 10 NG/mL 13-157 low Not Available [facility] [address] [place] [address], [address], 10/11/2023 16:24:25 10/11/19 24 10/11/2023 IRON PANEL -TOTA L AND TIBC iron 82 ug/dL 37-145 normal Not Available [facility] [address] [place] [address], [address], 10/11/2023 16:24:24 10/11/19 24 10/11/2023 IRON PANEL -TOTA L AND TIBC total iron binding cap. 491 ug/dL _(kyree c) 250-45 0 high Not Available [facility] [address] [place] [address], [address], 10/11/2023 16:24:24 10/11/19 24 10/11/2023 IRON PANEL -TOTA L AND TIBC unsat.iron binding cap. 409 ug/dL 112-34 7 high Not Available [facility] [address] [place] [address], [address], 10/11/2023 16:24:24 10/11/19 24 10/11/2023 IRON PANEL -TOTA L AND TIBC % saturation 17 %_(ca lc) 15-50 normal Not Available [facility] [address] [place] [address], [address], 10/11/2023 16:24:24 10/11/19 24 10/11/2023 COMP. METAB OLIC PANEL glucose 98 mg/dL 74-100 normal Not Available [facility] [address] [place] [address], [address], 10/11/2023 16:24:23 10/11/19 24 10/11/2023 COMP. METAB OLIC PANEL blood urea nitrogen 20 mg/dL 6-20 normal Not Available [facility] [address] [place] [address], [address], 10/11/2023 16:24:23 10/11/19 24 10/11/2023 COMP. METAB OLIC PANEL creatinine 1.51 mg/dL 0.50-0 .95 high Not Available [facility] [address] [place] [address], [address], 10/11/2023 16:24:23 10/11/19 24 10/11/2023 COMP. METAB OLIC PANEL BUN/creatini ne ratio 13 (calc ) 10-20 normal Not Available [facility] [address] [place] [address], [address], 10/11/2023 16:24:23 10/11/19 24 10/11/2023 COMP. METAB OLIC PANEL sodium 142 mmol/ L 136-14 5 normal Not Available [facility] [address] [place] [address], [address], 10/11/2023 16:24:23 10/11/19 24 10/11/2023 COMP. METAB OLIC PANEL potassium 4.2 mmol/ L 3.4-5. 0 normal Not Available [facility] [address] [place] [address], [address], 10/11/2023 16:24:23 10/11/19 24 10/11/2023 COMP. METAB OLIC PANEL chloride 106 mmol/ L 98-107 normal Not Available [facility] [address] [place] [address], [address], 10/11/2023 16:24:23 10/11/19 24 10/11/2023 COMP. METAB OLIC PANEL carbon dioxide 26 mmol/ L 22-31 normal Not Available [facility] [address] [place] [address], [address], 10/11/2023 16:24:23 10/11/19 24 10/11/2023 COMP. METAB OLIC PANEL anion gap 10 (calc ) 7-25 normal Not Available [facility] [address] [place] [address], [address], 10/11/2023 16:24:23 10/11/19 24 10/11/2023 COMP. METAB OLIC PANEL calcium 8.4 mg/dL 8.6-10 .2 low Not Available [facility] [address] [place] [address], [address], 10/11/2023 16:24:23 10/11/19 24 10/11/2023 COMP. METAB OLIC PANEL total protein 6.1 g/dL 6.4-8. 3 low Not Available [facility] [address] [place] [address], [address], 10/11/2023 16:24:23 10/11/19 24 10/11/2023 COMP. METAB OLIC PANEL albumin 3.8 g/dL 3.5-5. 2 normal Not Available [facility] [address] [place] [address], [address], 10/11/2023 16:24:23 10/11/19 24 10/11/2023 COMP. METAB OLIC PANEL globulin 2.3 1.5-4. 5 normal Not Available [facility] [address] [place] [address], [address], 10/11/2023 16:24:23 10/11/19 24 10/11/2023 COMP. METAB OLIC PANEL albumin/glob ulin ratio 1.7 (calc ) 1.1-2. 5 normal Not Available [facility] [address] [place] [address], [address], 10/11/2023 16:24:23 10/11/19 24 10/11/2023 COMP. METAB OLIC PANEL bilirubin, total 0.2 mg/dL 0.1-1. 2 normal Not Available [facility] [address] [place] [address], [address], 10/11/2023 16:24:23 10/11/19 24 10/11/2023 COMP. METAB OLIC PANEL alkaline phosphatase 51 U/L 30-121 normal Not Available [facility] [address] [place] [address], [address], 10/11/2023 16:24:23 10/11/19 24 10/11/2023 COMP. METAB OLIC PANEL AST 18 U/L 0-32 normal Not Available [facility] [address] [place], [address], 10/11/2023 16:24:23 10/11/19 24 10/11/2023 COMP. METAB OLIC PANEL ALT 13 U/L 0-33 normal Not Available [facility] [address] [place] [address], [address], 10/11/2023 16:24:23 10/11/19 24 10/11/2023 COMP. METAB OLIC PANEL GFR 34 >= 60 abnormal NOT E New calcu latio n for GFR (CKD- EPI 2020) is formu lated witho ut race adjus tment facto rs at the recom menda tion of the [employer] Carr [employer] at[employer]y and Nikunj Chandler ty of Nephr ology . This calcu latio n has not been valid ated in pregn ant women . For pedia tric patie nts refer to https ://andrew strong.anoop rg/pr ofess ional s/KDO QI/gf r_cal culat orPed Not Available [facility] [address] [place] [address], [address], 10/11/2023 16:24:23 10/11/19 24 10/11/2023 COMPL ETE BLOOD COUNT white blood cells 5.2 10*3/ uL 3.8-10 .8 normal Not Available [facility] [address] [place] [address], [address], 10/11/2023 15:55:03 10/11/19 24 10/11/2023 COMPL ETE BLOOD COUNT red blood cells 3.15 10*6/ uL 3.80-5 .20 low Not Available [facility] [address] [place] [address], [address], 10/11/2023 15:55:03 10/11/19 24 10/11/2023 COMPL ETE BLOOD COUNT hemoglobin 9.7 g/dL 12.0-1 6.0 low Not Available [facility] [address] [place] [address], [address], 10/11/2023 15:55:03 10/11/19 24 10/11/2023 COMPL ETE BLOOD COUNT hematocrit 29.0 % 35.0-4 7.0 low Not Available [facility] [address] [place] [address], [address], 10/11/2023 15:55:03 10/11/19 24 10/11/2023 COMPL ETE BLOOD COUNT MCV 92 fL 80-100 normal Not Available [facility] [address] [place] [address], [address], 10/11/2023 15:55:03 10/11/19 24 10/11/2023 COMPL ETE BLOOD COUNT MCH 31 pg 26-35 normal Not Available [facility] [address] [place] [address], [address], 10/11/2023 15:55:03 10/11/19 24 10/11/2023 COMPL ETE BLOOD COUNT MCHC 34 g/dL 32-36 normal Not Available [facility] [address] [place] [address], [address], 10/11/2023 15:55:03 10/11/19 24 10/11/2023 COMPL ETE BLOOD COUNT RDW 13.6 % 11.0-1 5.0 normal Not Available [facility] [address] [place] [address], [address], 10/11/2023 15:55:03 10/11/19 24 10/11/2023 COMPL ETE BLOOD COUNT MPV 7.6 fL 6.2-10 .5 normal Not Available [facility] [address] [place] [address], [address], 10/11/2023 15:55:03 10/11/19 24 10/11/2023 COMPL ETE BLOOD COUNT platelet count 269 10*3/ uL 150-40 0 normal Not Available [facility] [address] [place] [address], [address], 10/11/2023 15:55:03 10/11/19 24 10/11/2023 COMPL ETE BLOOD COUNT neutrophil,a bsolute 3.7 10*3/ uL 1.6-8. 4 normal Not Available [facility] [address] [place] [address], [address], 10/11/2023 15:55:03 10/11/19 24 10/11/2023 COMPL ETE BLOOD COUNT lymphocyte,a bsolute 0.9 10*3/ uL 0.4-5. 1 normal Not Available [facility] [address] [place] [address], [address], 10/11/2023 15:55:03 10/11/19 24 10/11/2023 COMPL ETE BLOOD COUNT monocyte,abs olute 0.4 10*3/ uL 0.0-1. 2 normal Not Available [facility] [address] [place] [address], [address], 10/11/2023 15:55:03 10/11/19 24 10/11/2023 COMPL ETE BLOOD COUNT eosinophil,a bsolute 0.1 10*3/ uL 0.0-0. 8 normal Not Available [facility] [address] [place] [address], [address], 10/11/2023 15:55:03 10/11/19 24 10/11/2023 COMPL ETE BLOOD COUNT basophil,abs olute 0.1 10*3/ uL 0.0-0. 3 normal Not Available [facility] [address] [place] [address], [address], 10/11/2023 15:55:03 10/11/19 24 10/11/2023 COMPL ETE BLOOD COUNT % neutrophils 71.5 % 42.0-7 8.0 normal Not Available [facility] [address] [place] [address], [address], 10/11/2023 15:55:03 10/11/19 24 10/11/2023 COMPL ETE BLOOD COUNT % lymphocytes 17.2 % 11.0-4 7.0 normal Not Available [facility] [address] [place] [address], [address], 10/11/2023 15:55:03 10/11/19 24 10/11/2023 COMPL ETE BLOOD COUNT % monocytes 8.1 % 0.0-11 .0 normal Not Available [facility] [address] [place] [address], [address], 10/11/2023 15:55:03 10/11/19 24 10/11/2023 COMPL ETE BLOOD COUNT % eosinophils 2.1 % 0.0-7. 0 normal Not Available [facility] [address] [place] [address], [address], 10/11/2023 15:55:03 10/11/19 24 10/11/2023 COMPL ETE BLOOD COUNT % basophils 1.1 % 0.0-3. 0 normal Not Available [facility] [address] [place] [address], [address], 10/11/2023 15:55:03 10/11/19 24 10/11/2023 COMPL ETE BLOOD COUNT nucleated red cells 0.1 % 0.0-0. 9 normal Not Available [facility] [address] [place] [address], [address], 10/11/2023 15:55:03 10/11/19 24 10/11/2023 COMPL ETE BLOOD COUNT nucleated RBCs, absolute 0.01 10*3/ uL not estab. normal Not Available [facility] [address] [place] [address], [address], 10/11/2023 15:55:03 01/10/20 24 01/10/2024 COMP. METAB OLIC PANEL glucose 83 mg/dL 74-100 normal Not Available [facility] [address] [place] [address], [address], 01/10/2024 18:37:55 01/10/20 24 01/10/2024 COMP. METAB OLIC PANEL blood urea nitrogen 27 mg/dL 6-20 high Not Available [facility] [address] [place] [address], [phone], 01/10/2024 18:37:55 01/10/20 24 01/10/2024 COMP. METAB OLIC PANEL creatinine 1.42 mg/dL 0.50-0 .95 high Not Available [facility] [address] [place] [address], [phone], 01/10/2024 18:37:55 01/10/20 24 01/10/2024 COMP. METAB OLIC PANEL BUN/creatini ne ratio 19 (calc ) 10-20 normal Not Available [facility] [address] [place] [address], [address], 01/10/2024 18:37:55 01/10/20 24 01/10/2024 COMP. METAB OLIC PANEL sodium 142 mmol/ L 136-14 5 normal Not Available [facility] [address] [place] [address], [phone], 01/10/2024 18:37:55 01/10/20 24 01/10/2024 COMP. METAB OLIC PANEL potassium 4.3 mmol/ L 3.4-5. 0 normal Not Available [facility] [address] [place] [address], [phone], 01/10/2024 18:37:55 01/10/20 24 01/10/2024 COMP. METAB OLIC PANEL chloride 108 mmol/ L 98-107 high Not Available [facility] [address] [place] [address], [address], 01/10/2024 18:37:55 01/10/20 24 01/10/2024 COMP. METAB OLIC PANEL carbon dioxide 25 mmol/ L 22-31 normal Not Available [facility] [address] [place] [address], [address], 01/10/2024 18:37:55 01/10/20 24 01/10/2024 COMP. METAB OLIC PANEL anion gap 9 (calc ) 7-25 normal Not Available [facility] [address] [place] [address], [phone], 01/10/2024 18:37:55 01/10/20 24 01/10/2024 COMP. METAB OLIC PANEL calcium 9.0 mg/dL 8.6-10 .2 normal Not Available [facility] [address] [place] [address], [phone], 01/10/2024 18:37:55 01/10/20 24 01/10/2024 COMP. METAB OLIC PANEL total protein 6.2 g/dL 6.4-8. 3 low Not Available [facility] [address] [place] [address], [phone], 01/10/2024 18:37:55 01/10/20 24 01/10/2024 COMP. METAB OLIC PANEL albumin 3.9 g/dL 3.5-5. 2 normal Not Available [facility] [address] [place] [address], [phone], 01/10/2024 18:37:55 01/10/20 24 01/10/2024 COMP. METAB OLIC PANEL globulin 2.3 1.5-4. 5 normal Not Available [facility] [address] [place] [address], [phone], 01/10/2024 18:37:55 01/10/20 24 01/10/2024 COMP. METAB OLIC PANEL albumin/glob ulin ratio 1.7 (calc ) 1.1-2. 5 normal Not Available [facility] [address] [place] [address], [phone], 01/10/2024 18:37:55 01/10/20 24 01/10/2024 COMP. METAB OLIC PANEL bilirubin, total 0.2 mg/dL 0.1-1. 2 normal Not Available [facility] [address] [place] [address], [address], 01/10/2024 18:37:55 01/10/20 24 01/10/2024 COMP. METAB OLIC PANEL alkaline phosphatase 42 U/L 30-121 normal Not Available [facility] [address] [place] [address], [address], 01/10/2024 18:37:55 01/10/20 24 01/10/2024 COMP. METAB OLIC PANEL AST 16 U/L 0-32 normal Not Available [facility] [address] [place] [address], [phone], 01/10/2024 18:37:55 01/10/20 24 01/10/2024 COMP. METAB OLIC PANEL ALT 14 U/L 0-33 normal Not Available [facility] [address] [place] [address], [phone], 01/10/2024 18:37:55 01/10/20 24 01/10/2024 COMP. METAB OLIC PANEL GFR 36 >= 60 abnormal NOT E New calcu latio n for GFR (CKD- EPI 2020) is formu lated witho ut race adjus tment facto rs at the recom menda tion of the [facility] and [facility] can [facility] of Nephr ology . This calcu latio n has not been valid ated in pregn ant women . For pedia tric patie nts refer to https ://andrew w.shila strong.o rg/pr ofess ional s/KDO QI/gf r_cal culat orPed Not Available [facility] [address] [place] [address], [address], 01/10/2024 18:37:55 01/10/20 24 01/10/2024 UJANA TIN ferritin 121 NG/mL 13-157 normal Not Available [facility] [address] [place] [address], [phone], 01/10/2024 18:37:57 01/10/20 24 01/10/2024 IRON PANEL -TOTA L AND TIBC iron 83 ug/dL 37-145 normal Not Available [facility] [address] [place] [address], [address], 01/10/2024 18:37:58 01/10/20 24 01/10/2024 IRON PANEL -TOTA L AND TIBC total iron binding cap. 428 ug/dL _(kyree c) 250-45 0 normal Not Available [facility] [address] [place] [address], [address], 01/10/2024 18:37:58 01/10/20 24 01/10/2024 IRON PANEL -TOTA L AND TIBC unsat.iron binding cap. 345 ug/dL 112-34 7 normal Not Available [facility] [address] [place] [address], [address], 01/10/2024 18:37:58 01/10/20 24 01/10/2024 IRON PANEL -TOTA L AND TIBC % saturation 19 %_(ca lc) 15-50 normal Not Available [facility] [address] [place] [address], [address], 01/10/2024 18:37:58 01/10/20 24 01/10/2024 COMPL ETE BLOOD COUNT white blood cells 4.8 10*3/ uL 3.8-10 .8 normal Not Available [facility] [address] [place] [address], [address], 01/10/2024 18:55:30 01/10/20 24 01/10/2024 COMPL ETE BLOOD COUNT red blood cells 3.83 10*6/ uL 3.80-5 .20 normal Not Available [facility] [address] [place] [address], [address], 01/10/2024 18:55:30 01/10/20 24 01/10/2024 COMPL ETE BLOOD COUNT hemoglobin 12.2 g/dL 12.0-1 6.0 normal Not Available [facility] [address] [place] [address], [address], 01/10/2024 18:55:30 01/10/20 24 01/10/2024 COMPL ETE BLOOD COUNT hematocrit 35.5 % 35.0-4 7.0 normal Not Available [facility] [address] [place] [address], [address], 01/10/2024 18:55:30 01/10/20 24 01/10/2024 COMPL ETE BLOOD COUNT MCV 93 fL 80-100 normal Not Available [facility] [address] [place] [address], [address], 01/10/2024 18:55:30 01/10/20 24 01/10/2024 COMPL ETE BLOOD COUNT MCH 32 pg 26-35 normal Not Available [facility] [address] [place] [address], [address], 01/10/2024 18:55:30 01/10/20 24 01/10/2024 COMPL ETE BLOOD COUNT MCHC 34 g/dL 32-36 normal Not Available [facility] [address] [place] [address], [address], 01/10/2024 18:55:30 01/10/20 24 01/10/2024 COMPL ETE BLOOD COUNT RDW 14.3 % 11.0-1 5.0 normal Not Available [facility] [address] [place] [address], [phone], 01/10/2024 18:55:30 01/10/20 24 01/10/2024 COMPL ETE BLOOD COUNT MPV 8.1 fL 6.2-10 .5 normal Not Available [facility] [address] [place] [address], [address], 01/10/2024 18:55:30 01/10/20 24 01/10/2024 COMPL ETE BLOOD COUNT platelet count 225 10*3/ uL 150-40 0 normal Not Available [facility] [address] [place] [address], [address], 01/10/2024 18:55:30 01/10/20 24 01/10/2024 COMPL ETE BLOOD COUNT neutrophil,a bsolute 3.7 10*3/ uL 1.6-8. 4 normal Not Available [facility] [address] [place] [address], [address], 01/10/2024 18:55:30 01/10/20 24 01/10/2024 COMPL ETE BLOOD COUNT lymphocyte,a bsolute 0.7 10*3/ uL 0.4-5. 1 normal Not Available [facility] [address] [place] [address], [address], 01/10/2024 18:55:30 01/10/20 24 01/10/2024 COMPL ETE BLOOD COUNT monocyte,abs olute 0.2 10*3/ uL 0.0-1. 2 normal Not Available [facility] [address] [place] [address], [address], 01/10/2024 18:55:30 01/10/20 24 01/10/2024 COMPL ETE BLOOD COUNT eosinophil,a bsolute 0.1 10*3/ uL 0.0-0. 8 normal Not Available [facility] [address] [place] [address], [address], 01/10/2024 18:55:30 01/10/20 24 01/10/2024 COMPL ETE BLOOD COUNT basophil,abs olute 0.1 10*3/ uL 0.0-0. 3 normal Not Available [facility] [address] [place] [address], [address], 01/10/2024 18:55:30 01/10/20 24 01/10/2024 COMPL ETE BLOOD COUNT % neutrophils 76.4 % 42.0-7 8.0 normal Not Available [facility] [address] [place] [address], [address], 01/10/2024 18:55:30 01/10/20 24 01/10/2024 COMPL ETE BLOOD COUNT % lymphocytes 14.6 % 11.0-4 7.0 normal Not Available [facility] [address] [place] [address], [address], 01/10/2024 18:55:30 01/10/20 24 01/10/2024 COMPL ETE BLOOD COUNT % monocytes 5.1 % 0.0-11 .0 normal Not Available [facility] [address] [place] [address], [address], 01/10/2024 18:55:30 01/10/20 24 01/10/2024 COMPL ETE BLOOD COUNT % eosinophils 2.4 % 0.0-7. 0 normal Not Available [facility] [address] [place] [address], [address], 01/10/2024 18:55:30 01/10/20 24 01/10/2024 COMPL ETE BLOOD COUNT % basophils 1.5 % 0.0-3. 0 normal Not Available [facility] [address] [place], [address], 01/10/2024 18:55:30 01/10/20 24 01/10/2024 COMPL ETE BLOOD COUNT nucleated red cells 0.2 % 0.0-0. 9 normal Not Available [facility] [address] [place], [address], 01/10/2024 18:55:30 01/10/20 24 01/10/2024 COMPL ETE BLOOD COUNT nucleated RBCs, absolute 0.01 10*3/ uL not estab. normal Not Available [facility] [address] [place] [address], [phone], 01/10/2024 18:55:30 01/10/20 24 01/15/2024 THIOP URINE METAB OLITE S 6-tgn 210 pmol/ 8x10( 8)RBC 235-40 0 low This test was devjoel aguirre and its marlon tical perfo rmanc e kalpesh cteri stics have been deter mined by [facility] conor [facility]. It has not been clear ed or appro allen by the FDA. This assay has been valid ated pursu ant to the CLIA regul ation s and is used for clini kyree purpo ses. Not Available [facility] [address] [place], [address], 01/15/2024 10:52:04 01/10/20 24 01/15/2024 THIOP URINE METAB OLITE S 6-mmpn <500 pmol/ 8x10( 8)RBC <5700 normal These resul ts are usefu l in asses sing a patie nt's metab olism of azath iopri ne (AZA) or 6-doc capto purin e (6-MP ). A 6-thi oguan ine (6-TG ) level great er than 235 pmol/ 8x10( 8) RBC has been assoc iated with remis sweta and very high level s have been assoc iated with leuco penia . 6-met hylme rcapt opuri ne (6-MM P) level s great er than 5700 pmol/ 8x10( 8) RBC may be assoc iated with hepat oxici ty. This test was devel oped and its marlon tical perfo rmanc e kalpesh cteri stics have been deter mined by [employer]. It has not been clear ed or appro allen by the FDA. This assay has been valid ated pursu ant to the CLIA regul ation s and is used for clini kyree purpo ses. Not Available [facility] [address] [place] [address], [address], 01/15/2024 10:52:04 04/14/20 24 04/14/2024 COMPL ETE BLOOD COUNT white blood cells 4.8 10*3/ uL 3.8-10 .8 normal Not Available [facility] [address] [place] [address], [address], 04/14/2024 15:57:08 04/14/20 24 04/14/2024 COMPL ETE BLOOD COUNT red blood cells 3.42 10*6/ uL 3.80-5 .20 low Not Available [facility] [address] [place] [address], [address], 04/14/2024 15:57:08 04/14/20 24 04/14/2024 COMPL ETE BLOOD COUNT hemoglobin 11.0 g/dL 12.0-1 6.0 low Not Available [facility] [address] [place] [address], [address], 04/14/2024 15:57:08 04/14/20 24 04/14/2024 COMPL ETE BLOOD COUNT hematocrit 31.7 % 35.0-4 7.0 low Not Available [facility] [address] [place] [address], [address], 04/14/2024 15:57:08 04/14/20 24 04/14/2024 COMPL ETE BLOOD COUNT MCV 93 fL 80-100 normal Not Available [facility] [address] [place] [address], [address], 04/14/2024 15:57:08 04/14/20 24 04/14/2024 COMPL ETE BLOOD COUNT MCH 32 pg 26-35 normal Not Available [facility] [address] [place] [address], [address], 04/14/2024 15:57:08 04/14/20 24 04/14/2024 COMPL ETE BLOOD COUNT MCHC 35 g/dL 32-36 normal Not Available [facility] [address] [place] [address], [address], 04/14/2024 15:57:08 04/14/20 24 04/14/2024 COMPL ETE BLOOD COUNT RDW 13.5 % 11.0-1 5.0 normal Not Available [facility] [address] [place] [address], [address], 04/14/2024 15:57:08 04/14/20 24 04/14/2024 COMPL ETE BLOOD COUNT MPV 7.7 fL 6.2-10 .5 normal Not Available [facility] [address] [place] [address], [address], 04/14/2024 15:57:08 04/14/20 24 04/14/2024 COMPL ETE BLOOD COUNT platelet count 245 10*3/ uL 150-40 0 normal Not Available [facility] [address] [place] [address], [address], 04/14/2024 15:57:08 04/14/20 24 04/14/2024 COMPL ETE BLOOD COUNT neutrophil,a bsolute 3.7 10*3/ uL 1.6-8. 4 normal Not Available [facility] [address] [place] [address], [address], 04/14/2024 15:57:08 04/14/20 24 04/14/2024 COMPL ETE BLOOD COUNT lymphocyte,a bsolute 0.6 10*3/ uL 0.4-5. 1 normal Not Available [facility] [address] [place] [address], [address], 04/14/2024 15:57:08 04/14/20 24 04/14/2024 COMPL ETE BLOOD COUNT monocyte,abs olute 0.4 10*3/ uL 0.0-1. 2 normal Not Available [facility] [address] [place] [address], [address], 04/14/2024 15:57:08 04/14/20 24 04/14/2024 COMPL ETE BLOOD COUNT eosinophil,a bsolute 0.1 10*3/ uL 0.0-0. 8 normal Not Available [facility] [address] [place] [address], [address], 04/14/2024 15:57:08 04/14/20 24 04/14/2024 COMPL ETE BLOOD COUNT basophil,abs olute 0.0 10*3/ uL 0.0-0. 3 normal Not Available [facility] [address] [place] [address], [address], 04/14/2024 15:57:08 04/14/20 24 04/14/2024 COMPL ETE BLOOD COUNT % neutrophils 76.9 % 42.0-7 8.0 normal Not Available [facility] [address] [place] [address], [address], 04/14/2024 15:57:08 04/14/20 24 04/14/2024 COMPL ETE BLOOD COUNT % lymphocytes 11.8 % 11.0-4 7.0 normal Not Available [facility] [address] [place] [address], [address], 04/14/2024 15:57:08 04/14/20 24 04/14/2024 COMPL ETE BLOOD COUNT % monocytes 7.3 % 0.0-11 .0 normal Not Available [facility] [address] [place] [address], [address], 04/14/2024 15:57:08 04/14/20 24 04/14/2024 COMPL ETE BLOOD COUNT % eosinophils 3.0 % 0.0-7. 0 normal Not Available [facility] [address] [place] [address], [address], 04/14/2024 15:57:08 04/14/20 24 04/14/2024 COMPL ETE BLOOD COUNT % basophils 1.0 % 0.0-3. 0 normal Not Available [facility] [address] [place] [address], [address], 04/14/2024 15:57:08 04/14/20 24 04/14/2024 COMPL ETE BLOOD COUNT nucleated red cells 0.0 % 0.0-0. 9 normal Not Available [facility] [address] [place] [address], [address], 04/14/2024 15:57:08 04/14/20 24 04/14/2024 COMPL ETE BLOOD COUNT nucleated RBCs, absolute 0.00 10*3/ uL not estab. normal Not Available [facility] [address] [place] [address], [address], 04/14/2024 15:57:08 04/14/20 24 04/14/2024 COMP. METAB OLIC PANEL glucose 103 mg/dL 74-100 high Not Available [facility] [address] [place] [address], [address], 04/14/2024 18:41:10 04/14/20 24 04/14/2024 COMP. METAB OLIC PANEL blood urea nitrogen 25 mg/dL 6-20 high Not Available [facility] [address] [place] [address], [address], 04/14/2024 18:41:10 04/14/20 24 04/14/2024 COMP. METAB OLIC PANEL creatinine 1.42 mg/dL 0.50-0 .95 high Not Available [facility] [address] [place] [address], [address], 04/14/2024 18:41:10 04/14/20 24 04/14/2024 COMP. METAB OLIC PANEL BUN/creatini ne ratio 18 (calc ) 10-20 normal Not Available [facility] [address] [place] [address], [address], 04/14/2024 18:41:10 04/14/20 24 04/14/2024 COMP. METAB OLIC PANEL sodium 141 mmol/ L 136-14 5 normal Not Available [facility] [address] [place] [address], [address], 04/14/2024 18:41:10 04/14/20 24 04/14/2024 COMP. METAB OLIC PANEL potassium 3.7 mmol/ L 3.4-5. 0 normal Not Available [facility] [address] [place] [address], [address], 04/14/2024 18:41:10 04/14/20 24 04/14/2024 COMP. METAB OLIC PANEL chloride 104 mmol/ L 98-107 normal Not Available [facility] [address] [place] [address], [address], 04/14/2024 18:41:10 04/14/20 24 04/14/2024 COMP. METAB OLIC PANEL carbon dioxide 24 mmol/ L 22-31 normal Not Available [facility] [address] [place] [address], [address], 04/14/2024 18:41:10 04/14/20 24 04/14/2024 COMP. METAB OLIC PANEL anion gap 13 (calc ) 7-25 normal Not Available [facility] [address] [place] [address], [address], 04/14/2024 18:41:10 04/14/20 24 04/14/2024 COMP. METAB OLIC PANEL calcium 8.9 mg/dL 8.6-10 .2 normal Not Available [facility] [address] [place] [address], [address], 04/14/2024 18:41:10 04/14/20 24 04/14/2024 COMP. METAB OLIC PANEL total protein 6.1 g/dL 6.4-8. 3 low Not Available [facility] [address] [place] [address], [address], 04/14/2024 18:41:10 04/14/20 24 04/14/2024 COMP. METAB OLIC PANEL albumin 3.8 g/dL 3.5-5. 2 normal Not Available [facility] [address] [place] [address], [address], 04/14/2024 18:41:10 04/14/20 24 04/14/2024 COMP. METAB OLIC PANEL globulin 2.3 1.5-4. 5 normal Not Available [facility] [address] [place] [address], [address], 04/14/2024 18:41:10 04/14/20 24 04/14/2024 COMP. METAB OLIC PANEL albumin/glob ulin ratio 1.7 (calc ) 1.1-2. 5 normal Not Available [facility] [address] [place] [address], [address], 04/14/2024 18:41:10 04/14/20 24 04/14/2024 COMP. METAB OLIC PANEL bilirubin, total 0.2 mg/dL 0.1-1. 2 normal Not Available [facility] [address] [place] [address], [address], 04/14/2024 18:41:10 04/14/20 24 04/14/2024 COMP. METAB OLIC PANEL alkaline phosphatase 45 U/L 30-121 normal Not Available [facility] [address] [place] [address], [address], 04/14/2024 18:41:10 04/14/20 24 04/14/2024 COMP. METAB OLIC PANEL AST 18 U/L 0-32 normal Not Available [facility] [address] [place] [address], [address], 04/14/2024 18:41:10 04/14/20 24 04/14/2024 COMP. METAB OLIC PANEL ALT 12 U/L 0-33 normal Not Available [facility] [address] [place], [address], 04/14/2024 18:41:10 04/14/20 24 04/14/2024 COMP. METAB OLIC PANEL GFR 36 >= 60 abnormal NOT E New calcu latio n for GFR (CKD- EPI 2020) is formu lated witho ut race adjus tment facto rs at the recom menda tion of the [facility] and Nikunj [facility] ty of Nephr ology . This calcu latio n has not been valid ated in pregn ant women . For pedia tric patie nts refer to https ://andrew cage.shila strong.o bonnie/pr johanny rasmussenal s/DORINDAO QI/gf r_cal culat orPed Not Available [facility] [address] [place] [address], [address], 04/14/2024 18:41:10 04/14/20 24 04/14/2024 JUANA TIN ferritin 43 NG/mL 13-157 normal Not Available [facility] [address] [place] [address], [address], 04/14/2024 18:41:12 04/14/20 24 04/14/2024 IRON PANEL -TOTA L AND TIBC iron 75 ug/dL 37-145 normal Not Available [facility] [address] [place], [address], 04/14/2024 18:41:14 04/14/20 24 04/14/2024 IRON PANEL -TOTA L AND TIBC total iron binding cap. 417 ug/dL _(kyree c) 250-45 0 normal Not Available [facility] [address] [place] [address], [address], 04/14/2024 18:41:14 04/14/20 24 04/14/2024 IRON PANEL -TOTA L AND TIBC unsat.iron binding cap. 342 ug/dL 112-34 7 normal Not Available [facility] [address] [place] [address], [address], 04/14/2024 18:41:14 04/14/20 24 04/14/2024 IRON PANEL -TOTA L AND TIBC % saturation 18 %_(ca lc) 15-50 normal Not Available [facility] [address] [place] [address], [address], 04/14/2024 18:41:14 09/08/19 25 09/08/2024 JUANA TIN ferritin 32 NG/mL 13-157 normal Not Available [facility] [address] [place] [address], [address], 09/08/2024 15:18:56 09/08/19 25 09/08/2024 IRON PANEL -TOTA L AND TIBC iron 94 ug/dL 37-145 normal Not Available [facility] [address] [place] [address], [address], 09/08/2024 15:18:55 09/08/19 25 09/08/2024 IRON PANEL -TOTA L AND TIBC total iron binding cap. 440 ug/dL _(kyree c) 250-45 0 normal Not Available [facility] [address] [place] [address], [address], 09/08/2024 15:18:55 09/08/19 25 09/08/2024 IRON PANEL -TOTA L AND TIBC unsat.iron binding cap. 346 ug/dL 112-34 7 normal Not Available [facility] [address] [place] [address], [address], 09/08/2024 15:18:55 09/08/19 25 09/08/2024 IRON PANEL -TOTA L AND TIBC % saturation 21 %_(ca lc) 15-50 normal Not Available [facility] [address] [place] [address], [address], 09/08/2024 15:18:55 09/08/19 25 09/08/2024 COMP. METAB OLIC PANEL glucose 91 mg/dL 74-100 normal Not Available [facility] [address] [place] [address], [address], 09/08/2024 15:18:54 09/08/19 25 09/08/2024 COMP. METAB OLIC PANEL blood urea nitrogen 21 mg/dL 6-20 high Not Available [facility] [address] [place] [address], [address], 09/08/2024 15:18:54 09/08/19 25 09/08/2024 COMP. METAB OLIC PANEL creatinine 1.39 mg/dL 0.50-0 .95 high Not Available [facility] [address] [place] [address], [address], 09/08/2024 15:18:54 09/08/19 25 09/08/2024 COMP. METAB OLIC PANEL BUN/creatini ne ratio 15 (calc ) 10-20 normal Not Available [facility] [address] [place] [address], [address], 09/08/2024 15:18:54 09/08/19 25 09/08/2024 COMP. METAB OLIC PANEL sodium 143 mmol/ L 136-14 5 normal Not Available [facility] [address] [place] [address], [address], 09/08/2024 15:18:54 09/08/19 25 09/08/2024 COMP. METAB OLIC PANEL potassium 4.1 mmol/ L 3.4-5. 0 normal Not Available [facility] [address] [place] [address], [address], 09/08/2024 15:18:54 09/08/19 25 09/08/2024 COMP. METAB OLIC PANEL chloride 105 mmol/ L 98-107 normal Not Available [facility] [address] [place] [address], [address], 09/08/2024 15:18:54 09/08/19 25 09/08/2024 COMP. METAB OLIC PANEL carbon dioxide 26 mmol/ L 22-31 normal Not Available [facility] [address] [place] [address], [address], 09/08/2024 15:18:54 09/08/19 25 09/08/2024 COMP. METAB OLIC PANEL anion gap 12 (calc ) 7-25 normal Not Available [facility] [address] [place] [address], [address], 09/08/2024 15:18:54 09/08/19 25 09/08/2024 COMP. METAB OLIC PANEL calcium 9.1 mg/dL 8.6-10 .2 normal Not Available [facility] [address] [place] [address], [address], 09/08/2024 15:18:54 09/08/19 25 09/08/2024 COMP. METAB OLIC PANEL total protein 6.4 g/dL 6.4-8. 3 normal Not Available [facility] [address] [place] [address], [phone], 09/08/2024 15:18:54 09/08/19 25 09/08/2024 COMP. METAB OLIC PANEL albumin 3.9 g/dL 3.5-5. 2 normal Not Available [facility] [address] [place] [address], [address], 09/08/2024 15:18:54 09/08/19 25 09/08/2024 COMP. METAB OLIC PANEL globulin 2.5 1.5-4. 5 normal Not Available [facility] [address] [place] [address], [phone], 09/08/2024 15:18:54 09/08/19 25 09/08/2024 COMP. METAB OLIC PANEL albumin/glob ulin ratio 1.6 (calc ) 1.1-2. 5 normal Not Available [facility] [address] [place] [address], [phone], 09/08/2024 15:18:54 09/08/19 25 09/08/2024 COMP. METAB OLIC PANEL bilirubin, total 0.2 mg/dL 0.1-1. 2 normal Not Available [facility] [address] [place] [address], [address], 09/08/2024 15:18:54 09/08/19 25 09/08/2024 COMP. METAB OLIC PANEL alkaline phosphatase 46 U/L 30-121 normal Not Available [facility] [address] [place] [address], [address], 09/08/2024 15:18:54 09/08/19 25 09/08/2024 COMP. METAB OLIC PANEL AST 20 U/L 0-32 normal Not Available [facility] [address] [place] [address], [address], 09/08/2024 15:18:54 09/08/19 25 09/08/2024 COMP. METAB OLIC PANEL ALT 12 U/L 0-33 normal Not Available [facility] [address] [place] [address], [phone], 09/08/2024 15:18:54 09/08/19 25 09/08/2024 COMP. METAB OLIC PANEL GFR 37 >= 60 abnormal NOT E New calcu latio n for GFR (CKD- EPI 2020) is formu lated witho ut race adjus tment facto rs at the recom menda tion of the Zohra Carr y Found atgrady and Nikunj Del Rosarioe ty of Nephr ology . This calcu latio n has not been valid ated in pregn ant women . For marcello tric aidae nts refer to https ://andrew cage.shila strong.o bonnie/pr johanny raines s/KDO QI/gf r_cal culat orPed Not Available [facility] [address] [place] [address], [address], 09/08/2024 15:18:54 09/08/19 25 09/08/2024 COMPL ETE BLOOD COUNT white blood cells 4.2 10*3/ uL 3.8-10 .8 normal Not Available [facility] [address] [place] [address], [address], 09/08/2024 14:50:20 09/08/19 25 09/08/2024 COMPL ETE BLOOD COUNT red blood cells 3.58 10*6/ uL 3.80-5 .20 low Not Available [facility] [address] [place] [address], [address], 09/08/2024 14:50:20 09/08/19 25 09/08/2024 COMPL ETE BLOOD COUNT hemoglobin 11.0 g/dL 12.0-1 6.0 low Not Available [facility] [address] [place] [address], [address], 09/08/2024 14:50:20 09/08/19 25 09/08/2024 COMPL ETE BLOOD COUNT hematocrit 33.3 % 35.0-4 7.0 low Not Available [facility] [address] [place] [address], [address], 09/08/2024 14:50:20 09/08/19 25 09/08/2024 COMPL ETE BLOOD COUNT MCV 93 fL 80-100 normal Not Available [facility] [address] [place] [address], [address], 09/08/2024 14:50:20 09/08/19 25 09/08/2024 COMPL ETE BLOOD COUNT MCH 31 pg 26-35 normal Not Available [facility] [address] [place] [address], [address], 09/08/2024 14:50:20 09/08/19 25 09/08/2024 COMPL ETE BLOOD COUNT MCHC 33 g/dL 32-36 normal Not Available [facility] [address] [place] [address], [address], 09/08/2024 14:50:20 09/08/19 25 09/08/2024 COMPL ETE BLOOD COUNT RDW 13.8 % 11.0-1 5.0 normal Not Available [facility] [address] [place] [address], [address], 09/08/2024 14:50:20 09/08/19 25 09/08/2024 COMPL ETE BLOOD COUNT MPV 7.7 fL 6.2-10 .5 normal Not Available [facility] [address] [place] [address], [address], 09/08/2024 14:50:20 09/08/19 25 09/08/2024 COMPL ETE BLOOD COUNT platelet count 235 10*3/ uL 150-40 0 normal Not Available [facility] [address] [place] [address], [address], 09/08/2024 14:50:20 09/08/19 25 09/08/2024 COMPL ETE BLOOD COUNT neutrophil,a bsolute 3.1 10*3/ uL 1.6-8. 4 normal Not Available [facility] [address] [place] [address], [address], 09/08/2024 14:50:20 09/08/19 25 09/08/2024 COMPL ETE BLOOD COUNT lymphocyte,a bsolute 0.6 10*3/ uL 0.4-5. 1 normal Not Available [facility] [address] [place] [address], [address], 09/08/2024 14:50:20 09/08/19 25 09/08/2024 COMPL ETE BLOOD COUNT monocyte,abs olute 0.3 10*3/ uL 0.0-1. 2 normal Not Available [facility] [address] [place] [address], [phone], 09/08/2024 14:50:20 09/08/19 25 09/08/2024 COMPL ETE BLOOD COUNT eosinophil,a bsolute 0.1 10*3/ uL 0.0-0. 8 normal Not Available [facility] [address] [place] [address], [address], 09/08/2024 14:50:20 09/08/19 25 09/08/2024 COMPL ETE BLOOD COUNT basophil,abs olute 0.0 10*3/ uL 0.0-0. 3 normal Not Available [facility] [address] [place] [address], [address], 09/08/2024 14:50:20 09/08/19 25 09/08/2024 COMPL ETE BLOOD COUNT % neutrophils 74.4 % 42.0-7 8.0 normal Not Available [facility] [address] [place] [address], [address], 09/08/2024 14:50:20 09/08/19 25 09/08/2024 COMPL ETE BLOOD COUNT % lymphocytes 15.1 % 11.0-4 7.0 normal Not Available [facility] [address] [place] [address], [address], 09/08/2024 14:50:20 09/08/19 25 09/08/2024 COMPL ETE BLOOD COUNT % monocytes 7.6 % 0.0-11 .0 normal Not Available [facility] [address] [place] [address], [address], 09/08/2024 14:50:20 09/08/19 25 09/08/2024 COMPL ETE BLOOD COUNT % eosinophils 1.8 % 0.0-7. 0 normal Not Available [facility] [address] [place] [address], [address], 09/08/2024 14:50:20 09/08/19 25 09/08/2024 COMPL ETE BLOOD COUNT % basophils 1.1 % 0.0-3. 0 normal Not Available [facility] [address] [place] [address], [address], 09/08/2024 14:50:20 09/08/19 25 09/08/2024 COMPL ETE BLOOD COUNT nucleated red cells 0.0 % 0.0-0. 9 normal Not Available [facility] [address] [place] [address], [address], 09/08/2024 14:50:20 09/08/19 25 09/08/2024 COMPL ETE BLOOD COUNT nucleated RBCs, absolute 0.00 10*3/ uL not estab. normal Not Available [facility] [address] [place] [address], [address], 09/08/2024 14:50:20 11/25/19 25 11/24/2024 COMPL ETE BLOOD COUNT white blood cells 5.1 10*3/ uL 3.8-10 .8 normal Not Available [facility] [address] [place] [address], [address], 11/24/2024 18:38:13 11/25/19 25 11/24/2024 COMPL ETE BLOOD COUNT red blood cells 3.44 10*6/ uL 3.80-5 .20 low Not Available [facility] [address] [place] [address], [address], 11/24/2024 18:38:13 11/25/19 25 11/24/2024 COMPL ETE BLOOD COUNT hemoglobin 10.6 g/dL 12.0-1 6.0 low Not Available [facility] [address] [place] [address], [address], 11/24/2024 18:38:13 11/25/19 25 11/24/2024 COMPL ETE BLOOD COUNT hematocrit 31.7 % 35.0-4 7.0 low Not Available [facility] [address] [place] [address], [address], 11/24/2024 18:38:13 11/25/19 25 11/24/2024 COMPL ETE BLOOD COUNT MCV 92 fL 80-100 normal Not Available [facility] [address] [place] [address], [address], 11/24/2024 18:38:13 11/25/19 25 11/24/2024 COMPL ETE BLOOD COUNT MCH 31 pg 26-35 normal Not Available [facility] [address] [place] [address], [address], 11/24/2024 18:38:13 11/25/19 25 11/24/2024 COMPL ETE BLOOD COUNT MCHC 34 g/dL 32-36 normal Not Available [facility] [address] [place] [address], [address], 11/24/2024 18:38:13 11/25/19 25 11/24/2024 COMPL ETE BLOOD COUNT RDW 13.8 % 11.0-1 5.0 normal Not Available [facility] [address] [place] [address], [address], 11/24/2024 18:38:13 11/25/19 25 11/24/2024 COMPL ETE BLOOD COUNT MPV 8.2 fL 6.2-10 .5 normal Not Available [facility] [address] [place] [address], [address], 11/24/2024 18:38:13 11/25/19 25 11/24/2024 COMPL ETE BLOOD COUNT platelet count 261 10*3/ uL 150-40 0 normal Not Available [facility] [address] [place] [address], [address], 11/24/2024 18:38:13 11/25/19 25 11/24/2024 COMPL ETE BLOOD COUNT neutrophil,a bsolute 3.9 10*3/ uL 1.6-8. 4 normal Not Available [facility] [address] [place] [address], [address], 11/24/2024 18:38:13 11/25/19 25 11/24/2024 COMPL ETE BLOOD COUNT lymphocyte,a bsolute 0.6 10*3/ uL 0.4-5. 1 normal Not Available [facility] [address] [place] [address], [address], 11/24/2024 18:38:13 11/25/19 25 11/24/2024 COMPL ETE BLOOD COUNT monocyte,abs olute 0.4 10*3/ uL 0.0-1. 2 normal Not Available [facility] [address] [place] [address], [address], 11/24/2024 18:38:13 11/25/19 25 11/24/2024 COMPL ETE BLOOD COUNT eosinophil,a bsolute 0.1 10*3/ uL 0.0-0. 8 normal Not Available [facility] [address] [place] [address], [address], 11/24/2024 18:38:13 11/25/19 25 11/24/2024 COMPL ETE BLOOD COUNT basophil,abs olute 0.1 10*3/ uL 0.0-0. 3 normal Not Available [facility] [address] [place] [address], [address], 11/24/2024 18:38:13 11/25/19 25 11/24/2024 COMPL ETE BLOOD COUNT % neutrophils 76.4 % 42.0-7 8.0 normal Not Available [facility] [address] [place] [address], [address], 11/24/2024 18:38:13 11/25/19 25 11/24/2024 COMPL ETE BLOOD COUNT % lymphocytes 12.7 % 11.0-4 7.0 normal Not Available [facility] [address] [place] [address], [address], 11/24/2024 18:38:13 11/25/19 25 11/24/2024 COMPL ETE BLOOD COUNT % monocytes 7.2 % 0.0-11 .0 normal Not Available [facility] [address] [place] [address], [address], 11/24/2024 18:38:13 11/25/19 25 11/24/2024 COMPL ETE BLOOD COUNT % eosinophils 2.6 % 0.0-7. 0 normal Not Available [facility] [address] [place] [address], [address], 11/24/2024 18:38:13 11/25/19 25 11/24/2024 COMPL ETE BLOOD COUNT % basophils 1.1 % 0.0-3. 0 normal Not Available [facility] [address] [place] [address], [address], 11/24/2024 18:38:13 11/25/19 25 11/24/2024 COMPL ETE BLOOD COUNT nucleated red cells 0.1 % 0.0-0. 9 normal Not Available [facility] [address] [place] [address], [address], 11/24/2024 18:38:13 11/25/19 25 11/24/2024 COMPL ETE BLOOD COUNT nucleated RBCs, absolute 0.00 10*3/ uL not estab. normal Not Available [facility] [address] [place] [address], [address], 11/24/2024 18:38:13 11/25/19 25 11/24/2024 JUANA TIN ferritin 13 NG/mL 13-157 normal Not Available [facility] [address] [place] [address], [address], 11/24/2024 19:09:23 04/06/20 24 04/03/2024 MAMMO , scree twila, tomos ynthe sis, bilat eral, w/ CAD [place] [facility] [address] [place] [address] Patien t Name: HENRI ramirez : [id number] Age: 83 years Patikevin ramirez 7 Orderi ng Provid er: HU AGUIRRE ET EXAM DATE: 2023 EXAM: MG SCREEN ING RITA MAMMOG JACKELYN INDICA TION: Routin e screen ing. Family histor y of breast cancer , mother . PROCED URE: Multis lice imagin g of both breast s was perfor med in standa rd projec tions using Hologi c Seleni a Dimens ions tomosy nthesi s equipm ent (3D mammog surya) . 2D images were create d from the 3D datase t using C-View softwa re. The study was read with the assist ance of Comput er Aided Detect ion (CAD) softwa re. COMPAR RYLIE: This was compar ed with previo us mammog elvira dated 023, 022, 021 FINDIN GS: There are scatte red areas of fibrog landul ar densit y. There is no suspic ious mass, suspic ious microc alcifi cation s or eviden ce of quentin ectura l distor tion. Benign findin gs noted. There has been no signif icant change . IMPRES SWETA: BI-RAD S catego ry 2, Benign . There is no eviden ce of malign aurea. Screen ing mammog elvira are recomm ended in one year. Result s were mailed or given to the isma ramirez. Interp reted By: Daniel Fatima Electr onical ly Signed By: Daniel Fatima on 024 9:24 PM [facility] [address], [place], [address], 04/07/2024 07:36:49 05/18/2005/18/2024 optic al coher ence tomog jackelyn, retin a No observ ation record ed. [email or web address] Not Available 2023 14:02:19 Result Notes Documentation Provider Name and Address Organization Details Recorded Time Mammo, Screening, Tomosynthesis, Bilateral, W/ Cad : [address] [place] [address] Patient Name: ALEJANDRA MALONE Patient : 1940 Age: 83 years Patient Ordering Provider: AIDEN GAMBLE EXAM DATE: 04/03/2024 EXAM: MG SCREENING RITA MAMMOGRAM INDICATION: Routine screening. Family history of breast cancer, mother. PROCEDURE: Multislice imaging of both breasts was performed in standard projections using Well[employer] tomosynthesis equipment (3D mammography). 2D images were created from the 3D dataset using C-View software. The study was read with the assistance of Computer Aided Detection (CAD) software. COMPARISON: This was compared with previous mammograms dated 02/21/2023, 01/03/2022, 12/09/2020 FINDINGS: There are scattered areas of fibroglandular density. There is no suspicious mass, suspicious microcalcifications or evidence of architectural distortion. Benign findings noted. There has been no significant change. IMPRESSION: BI-RADS category 2, Benign. There is no evidence of malignancy. Screening mammograms are recommended in one year. Results were mailed or given to the patient. Interpreted By: Rachel Fatima Marcy Shepherd [facility] 04/07/2024 07:36:49 Problems Name Problem SNOMED Code Status Onset Date Resolution Date Notes Provider Name and Address Organization Details Recorded Time Presbyopi a 03965590 Active 2015 From Automated Load;Provi cisco: Stewart Ball;Stat us: Active MD Richardson [place], [address] , [facility] 3 15:07:09 Excess skin of eyelid 216150690 Active 2016 MD Richardson [place], [address] , [facility] 3 15:07:08 Combined form of senile cataract 79454789 Active 2016 [place], [address] , [facility] 3 15:07:08 Nonexudat sadiq age-relat ed macular degenerat ion 849324989 Active 2016 STEWART BALL MD [address] [place] [address], [address] , [facility] 3 15:07:08 Hypermetr opia 40519986 Active 2016 STEWART BALL MD [address] [place] [address], [address] , [facility] 3 15:07:09 Regular astigmati sm 38212690 Active 2016 STWEART BALL MD [address] [place] [address], [address] , [facility] 3 15:07:09 Retinosch kimberlee 54098218 Active 2022 STEWART BALL MD [address] [place] [address], [address] , [facility] 3 13:04:42 Crohn's disease of small intestine 64887334 Active 2014 From Automated Load;Provi cisco: Alie Vasquez;St atus: Active Not Available [facility] 6 03:17:43 Neoplasm of uncertain behavior of skin 51103641 Active 2014 From Automated Load;Provi cisco: Nilton Antunez;Sta tus: Active Not Available [facility] 6 03:17:43 Inflamed seborrhei c keratosis 962830408 Active 2014 From Automated Load;Provi cisco: Nilton Antunez;Sta tus: Active Not Available [facility] 6 03:17:44 Senile hyperkera tosis 969778347 Active 2015 From Automated Load;Provi cisco: Nilton Antunez;Sta tus: Active Not Available [facility] 6 03:17:44 Problem Notes None recorded. Procedures Surgical History Date Name Laterality Status Provider Name and Address Organization Details Recorded Time 05/18/20 24 OCT/Retina completed STEWART BALL MD [address] [place] [address], [address], [facility] 05/18/2024 14:02:51 05/09/20 23 OCT/Retina completed STEWART BALL MD [address] [place] [address], [address], [facility] 05/09/2023 15:06:01 05/03/20 22 OCT/Retina completed STEWART BALL MD [address] [place] [address], [address], [facility] 05/03/2022 16:28:16 08/22/19 22 Destruction Premalignant Lesion(s) completed NILTON ANTUNEZ MD [address] [place] [address], [address], [facility] 08/22/2021 16:52:42 08/22/19 22 Destruction BN Lesions completed Meryl Cota [facility] 08/22/2021 15:57:56 08/08/19 21 OCT/Retina completed STEWART BALL MD [address] [place] [address], [address], [facility] 08/08/2020 17:09:48 05/13/20 20 DXA Low Bone Mass 2 - Tx completed CODEY YATES MD [address] [place] [address], [address], [facility] 05/13/2020 16:04:39 02/27/20 19 OCT/Retina completed STEWART BALL MD [address] [place] [address], [address], [facility] 02/26/2019 15:43:22 02/27/20 19 Refraction completed STEWART BALL MD [address] [place] [address], [address], [facility] 02/26/2019 15:42:39 11/25/19 19 Endoscopy Nasal; Diagnostic completed NINA STONE MD [address] [place] [address] [place], [address], [facility] 11/24/2018 16:34:59 03/19/20 18 OCT/Retina completed Monique Ram [facility] 03/19/2018 10:35:33 07/01/20 17 Refraction completed STEWART BALL MD [address] [place] [address], [address], [facility] 07/01/2017 16:08:10 06/21/20 17 DXA Low Bone Mass 2 - Tx completed CODEY YATES MD [address] [place] [address], [address], [facility] 06/21/2017 16:40:17 09/10/19 17 Destruction BN Lesions completed Meryl Cota [facility] 09/10/2016 14:27:58 09/10/19 17 Shave Lesion; scalp, neck, hand, foot, genitalia completed NILTON ANTUNEZ MD [address] [place] [address], [address], [facility] 09/13/2016 18:12:00 Appendectomy completed [facility] 06/27/2016 15:48:58 Incision of gallbladder completed [facility] 06/27/2016 15:49:12 Other completed [facility] 06/27/2016 15:49:50 Imaging Results None recorded. Procedure Notes None recorded. Medical Equipment None Reported. Allergies Allergen ID Allergen Name Allergen Category Reaction Reaction Severity Criticality Documentation Date Start Date Code Code System Note Provider Name and Address Organization Details Recorded Time 036843 tetracycl ine hydrochlo ride medicatio n rash Not available Not available 06/07/20162005 25070 6 RxNorm React ion: RASH; Comme nt: itchi ng;Cr eated By: Navi EdwardCrea lopez Date: 06/03 12:07 :13 PM; Not Available [facility] 6 11:16:06 [id number] E-Mycin medicatio n other Not available Not available 06/07/20162005 54053 8 RxNorm React ion: OTHER ; Comme nt: felt faint ;Crea lopez By: Navi EdwardCrea lopez Date: 06/03 12:08 :16 PM; Not Available [facility] 6 11:16:06 [id number] Product containin g penicilli n (product) medicatio n other moderate Not available 06/07/20162005 71040 8001 SNOMED React ion: OTHER ;Ana rity: Moder ate; Comme nt: felt faint ,;Cre ated By: Navi Germain ;Crea lopez Date: 06/03 12:02 :37 PM; Not Available [facility] 6 11:16:06 [id number] corticotr opin medicatio n other Not available Not available 06/07/20162005 376 RxNorm React ion: OTHER ; Comme nt: flush ed;Cr eated By: Navi Germain ;Crea lopez Date: 06/03 12:09 :34 PM; Not Available [facility] 6 11:16:06 [id number] Celestone medicatio n other Not available Not available 06/07/20162005 14667 9 RxNorm React ion: OTHER ; Comme nt: felt flush ed had with rutus s;Cre ated By: Navi Germain ;Crea lopez Date: 06/03 12:12 :25 PM; Not Available [facility] 6 14:09:41 [id number] streptomy kathy sulfate medicatio n other Not available Not available 06/07/20162005 10217 RxNorm React ion: OTHER ;Ana rity: Unkno wn; Comme nt: felt flush ed;Cr eated By: Navi Germain ;Crea lopez Date: 06/03 12:05 :45 PM; Not Available [facility] 6 14:09:41 [id number] atropine / chlorphen iramine / hyoscyami ne / pseudoeph edrine / scopolami ne medicatio n other Not available Not available 06/07/20162005 65496 67 RxNorm React ion: OTHER ; Comme nt: felt flush ed had toget her with nicolás tone; Creat ed By: Navi Germain ;Crea lopez Date: 06/03 12:11 :27 PM; Not Available [facility] 6 14:09:41 [id number] Dexferrum medicatio n respirato ry distress severe Not available 06/07/20162005 19732 5 RxNorm React ion: SHORT NESS OF BREAT H;Sev erity : Sever e; Comme nt: flush ed, felt faint ;Crea lopez By: Navi marroquin Date: 06/03 11:59 :50 AM; Not Available [facility] 6 14:24:12 [id number] clonidine medicatio n hallucina tions Not available Not available 08/08/2020 2599 RxNorm Ionna Caden hamlin [facility] 16:12:00 Medications Name Sig Start Date Stop Date Status Note LastModified by Organization Details LastModified Time Xanax 0.5 mg tablet PRN daily active Frequenc y: daily;Al t Frequenc y: prn;Medi cation Descript ion: alprazol am; Dosage:1 ; refills: 0 Not Available Not Available Not Available Imuran 50 mg tablet Daily 2024 active Not Available Not Available Not Avai lable FML Liquifilm 0.1 % eye drops,nelly pension 1 drop 3 times a day left eye 1 week 01/10 completed Not Available Not Available Not Available benazepri l 20 mg-hydroc hlorothia zide 12.5 mg tablet Take 1 tablet every day by oral route. active Not Available Not Available No t Available Tylenol 325 mg tablet As needed active Frequenc y: prn;Medi cation Descript ion: acetamin ophen; Dosage:1 -2; Route:or al; refills: 0 Not Available Not Available Not Available Dyazide 37.5 mg-25 mg capsule Daily 12/12 completed Frequenc y: daily;Me dication Descript ion: hydrochl orothiaz bobby-tria mterene; Dosage:1 ; Route:or al; refills: 0 Not Available Not Available Not Available cefdinir 300 mg capsule Take 1 capsule every 12 hours by oral route for 21 days. 12/23 completed Not Available Not Available Not Available amlodipin e 10 mg-benaze pril 20 mg capsule Take 1 capsule every day by oral route. active Not Available Not Available No t Available cholestyr amine (with sugar) 4 gram oral powder Take 1 scoop twice a day by oral route. 2022 active Not Available Not Available Not Avai lable Klor-Con M20 mEq tablet,ex tended release Two times a day active Duration : 10 days;Humberto quency: bid;Medi cation Descript ion: potassiu m chloride ; Route:or al; refills: 0; Quantity :60 tablet, extended release Not Available Not Available Not Available Tricor 145 mg tablet Daily active Duration : 10 days;Humberto quency: daily;Me dication Descript ion: fenofibr ate; Dosage:1 ; Route:or al; refills: 5; Quantity :30 tablet Not Available Not Available Not Available Vitamin B-12 Once monthly active Frequenc y: 1x /month;M edicatio n Descript ion: cyanocob alamin; Dosage:a s directed ; Route:in jectable ; refills: 0 Not Available Not Available Not Available Calcium-V itamin D Daily active Frequenc y: daily;Me dication Descript ion: calcium- vitamin D; Dosage:1 ; Route:or al; refills: 0 Not Available Not Available Not Available Aspir-81 05/03 completed Not Available Not Available Not Available amlodipin e 07/16 completed Not Available Not Available Not Available Bystolic 10 mg tablet Take 1 tablet every day by oral route. 11/24 completed Not Available Not Available Not Available GaviLyte- G 236 gram-22.7 4 gram-6.74 gram-5.86 gram oral solution DIRECTED 07/18 completed Not Available Not Available Not Available ICaps AREDS active Not Available Not Available Not Available Vitals Date Recorded Body height Body mass index (BMI) Body weight Heart rate Respiratory rate Systolic And Diastolic Provider Name and Address Organization Details Last Updated DateTime 160.02 cm 23 kg/m2 49752.0 1 g 77 /min 16 /min 187/85 mm[Hg] Sherry Vigil [facility] 14:35:24 Date Recorded Body height Provider Name an d Address Organization Details Last Updated DateTime 09/05/2023 160.02 cm Alirio Green [facility] 09/05/2023 13:27:04 Date Recorded Body height Body mass index (BMI) Body weight Heart rate Respiratory rate Systolic And Diastolic Provider Name and Address Organization Details Last Updated DateTime 5 160.02 cm 21.6 kg/m2 71671.2 7 g 75 /min 16 /min 159/89 mm[Hg] Sherry Vigil [facility] 5 13:08:55 Date Recorded Body height Provider Name an d Address Organization Details Last Updated DateTime 11/08/2023 160.02 cm Cydney Farris [facility] 11/08/2023 14:29:39 Date Recorded Body height Provider Name an d Address Organization Details Last Updated DateTime 05/18/2024 160.02 cm Pita Vegas [facility] 13:31:32 Social History Question Answer Notes LastModified by Organizat ion Details LastModified Time Tobacco Smoking Status [facility]2016 15:48:49 What Was The Date Of Your Most Recent Tobacco Screening? 12/23/2018 Information n ot available 09/01/2019 Sex: Unknown Functional Status None recorded. Mental Status None recorded. Family History Relationship Description Onset Age of this Age Resolved Age Notes LastModified by Organization Details LastModified Time Unspecified Relation Anemia tshouse Not available 6 15:47:34 Unspecified Relation Hypertensive disorder tshouse Not available 2015 15:47:59 Unspecified Relation Tuberculosis tshouse Not available 06/14 15:48:18 Unspecified Relation Cerebrovascu lar accident tshouse Not available 15:48:26 Unspecified Relation Family history of malignant neoplasm tshouse Not available 2015 15:48:39 Medical History Condition Response Anxiety Disorder Y Anemia Y Skin Cancer N Tuberculosis Y Age-related Macular Degeneration Y Hypertension Y COPD Y Cataract Y GI Problems Y Glasses/Contacts Y Gynecological HistoryNo gynecological history recorded. Obstetrics History GPAL:G 0 P 0 0 0 0 Past Encounters Encounter ID Performer Location Encounter Start Date Encounter Closed Date Diagnosis/Indication Diagnosis SNOMED-CT Code Diagnosis ICD10 Code Diagnosis Note [id number] ALIE VASQUEZ MD [place]STRO [address] [facility], [address] [place] [address] 06/27/2016 14:50:27 06/29/2016 09:08:29 Crohn's disease of small intestine 60138782 K50.00 She has been doing well. Recent testing does not reveal any active disease. I suspect she does have some mild scar tissue in the right lower quadrant continuing to some of her gas symptoms. I would recommend she try enteragam 1 packet once daily. She alreadyhas a box of samples at home. Continue Imuran. Check CBC, CMP B12 and Imuran metabolite s today. Follow-up in 1 year. [id number] NILTON ANTUNEZ MD DERMATOLO GY [place] [address] [place] [address] 09/10/2016 14:03:36 09/14/2016 10:41:16 Senile hyperkeratosis 978156780 L82.1 Education: We discussed the potential diagnostic options, options for further evaluation and treatments , and the risks and benefits of each. Inflamed s eborrheic keratosis 979242044 L82.0 LN x 8 Neoplasm o f uncertain behavior of skin 53493296 D48.5 ?ISKRight dorsal foot Shave removal and base destroyed with ED Lentigo 685129013 L81.4 Reassuranc e and education regarding the disorder and options. [id number] CODEY YATES MD BONE DENSITY [address] [place] [address] 06/21/2017 14:46:22 06/21/2017 15:54:07 [id number] STEWART BALL MD OPHTHALMO LOGY EAST [address] [place] [address] 07/01/2017 15:02:48 07/03/2017 08:42:06 Combined form of senile cataract 27339267 H25.813 Nonexudati ve age-related macular degeneration 176247696 H35.3132 Hypermetropia 74452182 H 52.03 Excess skin of eyelid 24 4945201 H02.831 H02.834 Regular astigmatism 6890 5002 H52.223 Presbyopia 15378823 H52. 4 [id number] ALIE VASQUEZ MD GASTRO [address] [facility], [facility] [address] [place] [id number] 07/11/2017 13:41:14 07/12/2017 08:31:16 Crohn's disease of small intestine 80781753 K50.00 Doing well. Continue Imuran. Check CBC, CMP, b12 and Imuran metabolite s today. Follow-up in 1 year. [id number] STEWART BALL MD OPHTHALMO LOGY [address] ,[address] [place] [address] 5 12/12/2017 09:13:21 12/12/2017 12:18:38 Pain in eye 63066460 H57.12 Combined f orm of senile cataract 68264838 H25.813 Excess skin of eyelid 24 6376833 H02.831 H02.660 [id number] STEWART BALL MD OPHTHALMO LOGY [address] ,[address] [place] [address] 5 03/19/2018 09:35:46 03/19/2018 13:36:51 Pain in eye 70192386 H57.12 Combined f orm of senile cataract 15287145 H25.813 Excess skin of eyelid 24 5485767 H02.831 H02.834 Nonexudati ve age-related macular degeneration 998596835 H35.3132 Hypermetropia 28062051 H 52.03 Regular astigmatism 6890 5002 H52.223 Presbyopia 93686718 H52. 4 [id number] STEWART BALL MD OPHTHALMO LOGY [address] ,[address] [place] [address] 5 03/28/2018 15:34:23 03/31/2018 13:21:09 Acute iritis 50320728 H20.012 ?subacute Combined f orm of senile cataract 31071066 H25.813 Excess skin of eyelid 24 5657399 H02.831 H02.728 [id number] ALIE VASQUEZ MD GASTRO [address] [facility], [address] [place] [address] 07/16/2018 14:41:23 07/17/2018 07:42:34 Crohn's disease of small intestine 05540315 K50.00 Doing well. Continue Imuran. Check CBC, CMP, b12 and Imuran metabolite s today. And again in 6 months Follow-up in 1 year. [id number] NINA STONE MD ENT [address] [place] [address] 11/24/2018 14:20:00 11/25/2018 07:50:06 Chronic maxillary sinusitis 41672046 J32.0 symptoms consistent with left-sided facial pressure go along with the CT that I reviewed today which shows mucosal thickening in the left maxillary sinus consistent with chronic sinusitis. Omnicef for 3 weeks.foll ow-up one month [id number] NINA STONE MD ENT [address] [place] [address] 12/23/2018 12:48:30 12/23/2018 13:37:25 Chronic maxillary sinusitis 63551895 J32.0 resolved with 3 weeks of Omnicef. Current symptoms of drainage seen to be secondary to allergic rhinitis. Begin Flonase. Follow up as needed Allergic r hinitis caused by pollen 58299372 J30.1 [id number] STEWART BALL MD OPHTHALMO [address]LO[address] [place] [address] 02/26/2019 13:43:02 02/26/2019 16:32:05 Nonexudative age-related macular degeneration 806483227 H35.3132 Combined f orm of senile cataract 70804606 H25.813 Excess skin of eyelid 24 4223079 H02.831 H02.834 Hypermetropia 38254147 H 52.03 Regular astigmatism 6890 5002 H52.223 Presbyopia 02910952 H52. 4 [id number] ALIE VASQUEZ MD GASTRO [address] [facility], [address] [place] [id number] 07/29/2019 14:32:33 07/29/2019 15:38:03 Crohn's disease of small intestine 03279444 K50.00 Continue Imuran. Check CBC, CMP, CRP, B12. Eating more ice. Check of hemoglobin . If creatinine abnormal consider nephrology consult. RTC 1 year. Pica 04735115 F50.89 ice Serum crea tinine outside reference range 936183179 R79.89 [id number] CHANEL KAMARA MD HEM/ONC SB CLOSED [address] FLO[address] [place] [address] 08/05/2019 14:39:21 08/05/2019 16:14:44 [id number] CHANEL KAMARA MD HEM/ONC SB CLOSED [address] [place] [address] 08/12/2019 13:40:28 08/21/2019 03:47:31 [id number] CHANEL KAMARA MD HEM/ONC SB CLOSED [address] [place] [address] 08/19/2019 13:28:28 08/27/2019 03:47:40 [id number] ALIE VASQUEZ MD SURGERY SCHEDULE [address] [place] [address] 09/10/2019 10:13:28 09/10/2019 10:14:47 [id number] ALIE VASQUEZ MD GASTRO SB [address] [facility], [address] [place] [address] 12/10/2019 13:31:22 12/11/2019 07:20:46 Crohn's disease of small intestine 59548306 K50.00 Continue Imuran. weight stable now. rtc 6 months. Iron defic iency anemia 38829920 D50.9 K50.90 R63.4 check cbc, cmp, tmpt, iron tibc ferritin Incisional hernia 007683 000 K43.2 not bothering her - - consider surgery consult if symptoms return. [id number] CHANEL KAMARA MD HEM/ONC SB CLOSED [address] [place] [address] 12/24/2019 13:15:18 12/24/2019 14:07:18 [id number] JESSE SIEGEL MD HEM/ONC SB CLOSED [address] [place] [address] 12/29/2019 11:23:09 12/29/2019 13:23:02 [id number] JESSE SIEGEL MD HEM/ONC SB CLOSED [address] [place] [address] 01/04/2020 11:58:23 01/04/2020 13:39:07 [id number] CHANEL KAMARA MD HEM/ONC SB CLOSED [address] [place] [address] 03/25/2020 12:45:35 03/25/2020 13:16:16 [id number] CODEY YATES MD BONE DENSITY [address] [place] [address] 05/13/2020 12:33:23 05/13/2020 13:15:32 Osteoporosis 36807123 M81.0 [id number] STEWART BALL MD OPHTHALMO LOGY [address] ,[address] [place] [address] 5 08/08/2020 14:34:14 08/08/2020 17:35:05 Nonexudative age-related macular degeneration 527971983 H35.3132 Combined f orm of senile cataract 64686624 H25.813 Excess skin of eyelid 24 0371911 H02.831 H02.834 Hypermetropia 54653620 H 52.03 Regular astigmatism 6890 5002 H52.223 Presbyopia 18140436 H52. 4 [id number] CHANEL KAMARA MD HEM/ONC SB CLOSED [address] [facility] [address] [place] [address] 1 09/30/2020 14:59:08 10/12/2020 10:25:34 [id number] ALIE VASQUEZ MD GASTRO SB [address] [facility], [address] [place] [address] 1 01/10/2021 15:10:41 01/12/2021 08:42:03 Crohn's disease of small intestine 97807522 K50.00 . Cont imuran Iron defic iency anemia 02821919 D50.9 K50.90 R63.4 Incisional hernia 211055 000 K43.2 . Loose stool 513607397 R1 9.5 Long-term drug therapy 256286635 Z79.159 [id number] STEWATR BALL MD OPHTHALMO LOGY [address] ,[address] [place] [address] 5 02/06/2021 14:32:30 02/06/2021 15:46:24 Combined form of senile cataract 79638643 H25.813 Nonexudati ve age-related macular degeneration 834654932 H35.3132 Excess skin of eyelid 24 1832659 H02.831 H02.834 Hypermetropia 53773967 H 52.03 Regular astigmatism 6890 5002 H52.223 Presbyopia 11481287 H52. 4 [id number] NILTON ANTUNEZ MD DERMATOLO GY EAST [address] [place] [address] 08/22/2021 15:09:03 08/22/2021 16:07:39 Inflamed seborrheic keratosis 265508639 L82.0 LN x 22 Lentigo 890625990 L81.4 Reassuranc eRecommend ed Equate Ultra Sunscreen 30+ and sun protecting hats/cloth ing Raised nahomi orrheic keratosis 5362928159 18791 L82.1 reassuranc e Actinic keratosis [address]67[address] x 1 [id number] CHANEL KAMARA MD HEM/ONC SB CLOSED [address] [place] [address] 1 11/09/2021 14:35:43 11/09/2021 15:16:16 [id number] CHANEL KAMARA MD HEM/ONC SB CLOSED [address]LO[address] [place] [address] 1 11/15/2021 12:51:39 11/15/2021 15:12:00 [id number] CHANEL KAMARA MD HEM/ONC SB CLOSED [address] [place] [address] 1 11/22/2021 12:50:30 11/22/2021 15:05:56 [id number] ALIE VASQUEZ MD GASTRO SB [address] [facility], [address] [place] [address] 1 01/03/2022 14:36:08 01/04/2022 07:41:04 Crohn's disease of small intestine 25352829 K50.00 Cont imuran Iron defic iency anemia 29104954 D50.9 K50.90 R63.4 Incisional hernia 212138 000 K43.2 . Long-term drug therapy 481380146 Z79.899 Diarrhea 40647896 R19.7 [id number] ALIE VASQUEZ MD SURGERY SCHEDULE [address] [place] [address] 1 01/16/2022 13:48:55 01/16/2022 13:52:34 [id number] CHANEL KAMARA MD HEM/ONC SB CLOSED [address] [place] [address] 02/08/2022 14:52:07 02/08/2022 15:27:49 [id number] STEWART BALL MD OPHTHALMO [address]LO[address] [place] [address] 05/03/2022 14:44:26 05/03/2022 16:39:58 Nonexudative age-related macular degeneration 168275280 H35.3132 Combined f orm of senile cataract 76071587 H25.813 Excess skin of eyelid 24 8859614 H02.831 H02.834 Hypermetropia 82013301 H 52.03 Regular astigmatism 6890 5002 H52.223 Presbyopia 00853670 H52. 4 [id number] ALIE VASQUEZ MD GASTRO SB [address] [facility], [address] [place] [address] 07/19/2022 14:16:26 07/20/2022 10:07:06 Crohn's disease of small intestine 49928919 K50.00 Cont imuran Iron defic iency anemia 42005914 D50.9 K50.90 R63.4 Cbc iron Incisional hernia 036154 000 K43.2 . Long-term drug therapy 927753739 Z79.899 Diarrhea 78816341 R19.7 [id number] CHANEL KAMARA MD HEM/ONC SB CLOSED [address] [place] [address] 11/08/2022 14:01:47 11/08/2022 15:17:03 [id number] ELEAZAR BABB MD HEM/ONC SB CLOSED [address] [place] [address] 11/12/2022 13:45:32 11/12/2022 16:18:08 [id number] CHANEL KAMARA MD HEM/ONC SB CLOSED [address] [place] [address] 11/19/2022 13:45:57 11/19/2022 15:43:36 [id number] STEWART BALL MD OPHTHALMO LOGJenise [address] [place] [address] 5 05/09/2023 13:45:48 05/09/2023 15:17:18 Nonexudative age-related macular degeneration 683843214 H35.3132 Combined f orm of senile cataract 21387339 H25.813 Excess skin of eyelid 24 5517694 H02.831 H02.834 Hypermetropia 91416326 H 52.03 Regular astigmatism 6890 5002 H52.223 Presbyopia 08468246 H52. 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 H35.62 Retinoschisis 18508971 H 33.102 Combined f orm of senile cataract 79414667 H25.813 [id number] ALIE VASQUEZ MD GASTRO SB [address] [facility], [address] [place] [address] 07/18/2023 14:14:16 07/18/2023 15:07:16 Crohn's disease of small intestine 38715032 K50.00 Cont imuran Iron defic iency anemia 03106448 D50.9 K50.90 R63.4 check labs -- check q 3 mos for next yearrtc 1 yr Long-term drug therapy 547099362 Z79.899 [id number] STEWART BALL MD OPHTHALMAnoop VIDES [address] [place] [address] 5 09/05/2023 13:15:33 09/05/2023 14:42:54 Subretinal hemorrhage 39632380 H35.62 appears to have resorbed Retinoschisis 96787334 H 33.102 [id number] STEWART BALL MD OPHTHALMAnoop VIDES [address] [place],[address] [place] [address] 5 11/08/2023 14:12:55 11/08/2023 15:46:28 Subretinal hemorrhage 67107337 H35.62 appears to have resorbed Nonexudati ve age-related macular degeneration 439633390 H35.3132 Combined f orm of senile cataract 95569578 H25.813 Retinoschisis 35952573 H 33.102 Excess skin of eyelid 24 7066368 H02.831 H02.834 [id number] STEWART BALL MD OPHTHALMO LOGY EAST [address] [place] [address],[address] [address] 05/18/2024 13:27:58 05/18/2024 14:17:25 Nonexudative age-related macular degeneration 171295850 H35.3132 stable Retinoschisis 45164532 H 33.102 Combined f orm of senile cataract 73239690 H25.813 slow progressio n Excess skin of eyelid 24 1443365 H02.831 H02.834 Hypermetropia 88229163 H 52.03 Regular astigmatism 6890 5002 H52.223 Presbyopia 16619098 H52. 4 [id number] ALIE VASQUEZ MD GASTRO SB [address] [facility], [address] [place] [address] 09/09/2024 12:57:54 09/10/2024 08:34:59 Crohn's disease of small intestine 02538136 K50.00 The patient continues on a maintenanc e plan with 50 mg of azathiopri ne daily for primary management of her Crohn's disease. This regimen appears effective in maintainin g stability. Her gastrointe stinal status must be monitored closely, and labs should be conducted semi-annua lly to assess disease status and treatment efficacy, adjusting only if necessary. Cont imuran dong well Iron defic iency anemia 66010596 D50.9 The patient's anemia is managed currently . The patient was advised that magnesium at low doses is generally safe, though it might increase diarrhea, which she should monitor closely. Further consultati on may be needed if this poses significan t issues or does not improve. stable over past year hb 11 Long-term drug therapy 673715952 Z79.899 Continuati on of current medication regimen with azathiopri ne for long-term management of Crohn s disease. Prescripti ons and refills have been adjusted according to stability and patient needs. Future adjustment s may be necessary depending on disease progressio n and patient response. Diarrhea 54267821 R19.7 Current therapy involves management with generic loperamide , based on patient use. The patient reports moderate control of morning diarrhea with current treatment. Discussed implicatio ns of potential triggers and the importance of monitoring response to new supplement s, namely magnesium, given potential effects on bowel movements. No procedural interventi ons were proposed at this time. imodium prn 3x day only in am Health Concerns Section Related Observation LastModified by Organization Detai ls LastModified Time None Recorded Concern Status LastModified by Organization Details LastModified Time None Recorded Advance Directives Directive None Recorded Payers Insurance Date Sequence Insurance Name Policy Number Policy Gupta Covered Member ID Gupta Member ID Guarantor Name 11/24/2024 1 [place] Alejandra Dominik Richard [id number] Alejandra Malone 11/24/2024 2 [employer] (MEDICARE SUPPLEMENT) Alejandra Malone [id number] Alejandra Malone 10/14/2019 2 UNSPECIFIED REMIT PAYOR Alejandra B Richard 09/09/2024 2 [employer] (MEDICARE SUPPLEMENT) Alejandra Lehman Richard [id number] Alejandra Lehman Richard Notes Date Note Type Note Provider Name and Address Organization Details Recorded Time 07/18/2023 text/html feels like some anemiaoccasional diarrhea ALIE VASQUEZ MD [address] [place] [address], [id number], [facility] 07/18/2023 15:06:49 09/09/2024 text/html The patient is a n 83-year-old female presenting with Crohn's disease management and ongoing diarrhea. She was previously diagnosed with Crohn's disease affecting her small intestine. The patient reports experiencing chronic diarrhea, primarily occurring in the morning with approximately three bowel movements, and this pattern has been persistent. Currently, she manages diarrhea with [id number] [employer]'s generic version of Imodium, which has been moderately effective. She denies diarrhea throughout the rest of the day. The patient is on 50 mg of azathioprine once daily as part of her long-term drug therapy, which appears to be contributing to the stability of her Crohn's disease. However, she has been experiencing diarrhea as a recurring symptom. Her recent blood work indicated iron deficiency anemia, for which magnesium supplementation was suggested, although she reports concerns about this exacerbating her diarrhea. The patient follows a nutritional plan aimed at managing her symptoms and is keen on maintaining monthly blood work appointments to monitor her condition, though it is suggested to adjust this to every six months due to stable results. She noted taking care of her 's health issues, which include severe cardiac problems, but does not discuss it as part of her health management. ALIE VASQUEZ MD [facility] [place], [address], [facility] 09/28/2024 21:51:51 OBGyn Episode No OBEpisode recorded.
--- OUTSIDE RECORDS SUMMARY | 2025-01-19 15:39 | XMS_ITS | Encounter Summary ---
Author Organization [facility] Address [address] [place] [address] Care Team Providers Care Facilities Painter Name Role Phone System, Provider Not In MD Primary Care Provider Unavailable Sal Mar MD Unavailable Edson Pendleton MD Primary Care Provider [phone] Encounter Details Date Type Department Care Team (Late st Contact Info) Description 07/19/2022 Orders Only [facility] @ [facility] [address] [place] [address] Fidel Vasquez MD [address] [place], [place] [id number] Social History Tobacco Use Types Packs/Day Years [...] Diagnosis Comments COMPREHENSIVE METABOLIC PANEL, PLASMA Routine 07/19/2022 3:24 PM EST documented in this encounter Results * (ABNORMAL) Comprehensive Metabolic Panel, Plasma (07/19/2022 3:24 PM EST) External Glucose 84 74 - 100 mg/dL [facility] External BUN 20 6 - 20 mg/dL [facility] External Creatinine Blood 1.18(H) 0.50 - 0.95 mg/dL [facility] External BUN/Creat Ratio 17 10 - 20 (calc) [facility] External Sodium 144 136 - 145 mmol/L [facility] External Potassium 4.2 3.4 - 5.0 mmol/L [facility] External Chloride 107 98 - 107 mmol/L [facility] External Carbon Dioxide 26 22 - 31 mmol/L [facility] External Anion Gap (AG) 11 7 - 25 (calc) [facility] External Calcium 9.2 8.6 - 10.2 mg/dL [facility] External Total Protein 6.6 6.4 - 8.3 g/dL [facility] External Albumin 4.2 3.5 - 5.2 g/dL [facility] External Globulin 2.4 1.5 - 4.5 g/dL (calc) [facility] External Albumin/Globulin Ratio 1.8 1.1 - 2.5 (calc) [facility] External Bilirubin Total 0.2 0.1 - 1.2 mg/dL [facility] External Alkaline Phosphatase 54 30 - 121 U/L [facility] External AST (SGOT) 20 0 - 32 U/L [facility] External ALT (SGPT) 12 0 - 33 U/L [facility] External Estimated GFR 46(A) >=60 [facility] Comment: NOTE New calculation for GFR (CKD-EPI 2020) is formulated without race adjustment factors at the recommendation of the National Kidney Foundation and [place] [employer]ph[employer]. This calculation has not been validated in women. For pediatric patients refer to https://www.kidney.org/professionals/KDOQI/gfr_calculatorPed 07/19/2022 3:24 PM EST 07/19/2022 3:56 PM EST us Fidel Vasquez MD LAB BLOOD ORDERABLES Final R esult [facility] [address] [place] [address], documented in this encounter Visit Diagnoses Not on filedocumented in this encounter Care Teams Facilities Painter Relationship Specialty Start Date End Date System, Provider Not In, [address] [place] [address] PCP - General Family Medicine 07/15/21 10/20/23 Edson Pendleton MD [address] [place] [address] PCP - General 10/21/23 Sal Mar MD [address] [place] [address] Medical Oncologist Hematology and Oncology 10/16/23 documented as of this encounter
--- OUTSIDE RECORDS SUMMARY | 2025-01-19 15:39 | XMS_ITS | Encounter Summary ---
Author Organization [facility] Address [address] [place] [address] Care Team Providers Care Clothing Presser Name Role Phone System, Provider Not In MD Primary Care Provider Unavailable Sal Mar MD Unavailable [phone] Edson Pendleton MD Primary Care Provider [phone] Encounter Details Date Type Department Care Team (Late st Contact Info) Description 07/19/2022 Orders Only [facility] [address] [place] [address] Fidel Vasquez MD [address], [place] [id number] Social History Tobacco Use Types Packs/Day Years [...] IRON BINDING CAPACITY, PLASMA (INCLUDES TRANSFERRIN) Routine 07/19/2022 3:24 PM EST documented in this encounter Results * (ABNORMAL) Iron & Total Iron Binding Capacity, Plasma (Includes Transferrin) (07/19/2022 3:24 PM EST) External Iron 93 37 - 145 ug/dL [facility] External Total Iron Binding Capacity 507(H) 250 - 450 ug/dL (calc) [facility] External Unsaturated Iron Binding Capacity 414(H) 112 - 347 ug/dL [facility] External Iron-Saturation% 18 15 - 50 % (calc) [facility] 07/19/2022 3:24 PM EST 07/19/2022 3:56 PM EST us Fidel Vasquez MD LAB BLOOD ORDERABLES Final R esult [facility] [address] [place] [address], documented in this encounter Visit Diagnoses Not on filedocumented in this encounter Care Teams Clothing Presser Relationship Specialty Start Date End Date System, Provider Not In, [address] [place] [id number] PCP - General Family Medicine 07/15/21 10/20/23 Edson Pendleton MD [address] [place] [address] PCP - General 10/21/23 Sal Mar MD [address] [place] [address] Medical Oncologist Hematology and Oncology 10/16/23 documented as of this encounter
--- OUTSIDE RECORDS SUMMARY | 2025-01-19 15:39 | XMS_ITS | Encounter Summary ---
Author Organization [facility] Address [address] [place] [address] Care Team Providers Care Records Tech Name Role Phone System, Provider Not In MD Primary Care Provider Unavailable Sal Mar MD Unavailable [phone] Edson Pendleton MD Primary Care Provider [phone] Encounter Details Date Type Department Care Team (Late st Contact Info) Description 02/08/2022 Orders Only [facility] [address] [place] [address] Sal Mar MD [address] [address] Social History Tobacco Use Types [...] Diagnosis Comments CBC WITH AUTO DIFFERENTIAL Routine 02/08/2022 2:16 PM EDT documented in this encounter Results * (ABNORMAL) CBC and Differential (02/08/2022 2:16 PM EDT) External WBC 4.3 3.8 - 10.8 K/uL [facility] External Red Blood Cell (RBC) 3.61(L) 3.80 - 5.20 M/uL [facility] External Hemoglobin 11.5(L) 12.0 - 16.0 G/DL [facility] External Hematocrit 32.7(L) 35.0 - 47.0 % [facility] External MCV 91 80 - 100 fL [facility] External MCH 32 26 - 35 PG [facility] External MCHC 35 32 - 36 G/DL [facility] External RDW 14.1 11.0 - 15.0 % [facility] External Mean Platelet Volume 7.1 6.2 - 10.5 fL [facility] External Platelets 216 130 - 400 K/uL [facility] External Neutrophil# 3.2 1.6 - 8.4 K/uL [facility] External Lymphocyte# 0.6 0.4 - 5.1 K/uL [facility] External Absolute Monocyte (Abs [place]) 0.4 0.0 - 1.2 K/uL [facility] External Eosinophils# 0.1 0.0 - 0.8 K/uL [facility] External Baso# 0.1 0.0 - 0.3 K/uL [facility] External Neutrophils % 74.5 42.0 - 78.0 % [facility] External Lymphocyte % 13.0 11.0 - 47.0 % [facility] External Monocyte % 8.8 0.0 - 11.0 % [facility] External Eosinophil% 2.4 0.0 - 7.0 % [facility] External Basophil % 1.3 0.0 - 3.0 % [facility] External Nucleated RBC%-Auto 0.1 0.0 - 0.9 % [facility] External Nucleated RBC Absolute 0.00 Not Estab. K/uL [facility] 02/08/2022 2:16 PM EDT 02/08/2022 2:22 PM EDT us Sal Mar MD LAB BLOOD ORDERABLES Final Res ult [facility] [address] [place] [address], documented in this encounter Visit Diagnoses Not on filedocumented in this encounter Care Teams Records Tech Relationship Specialty Start Date End Date System, Provider Not In, [address] [place] [address] PCP - General Family Medicine 07/15/21 10/20/23 Edson Pendleton MD [address] [place] [address] PCP - General 10/21/23 Sal Mar MD [address] [place] [address] Medical Oncologist Hematology and Oncology 10/16/23 documented as of this encounter
--- OUTSIDE RECORDS SUMMARY | 2025-01-19 15:39 | XMS_ITS | Referral Summary ---
Author Organization [employer] ([place], [place], [place], [place]) Address [address] [place] [address] Care Team Providers Care Territory Sales Professional Name Role Phone Unavailable Primary Care Provider Unavailabl e Social History Tobacco Use Types Packs/Day Years Used Date Smoking Tobacco: Never Assessed Comments Unknown Sex and Gender Information Value Date Recorded Sex Assigned at Female 01/09/2022 10:42 AM CDT Legal Sex Female 10:42 AM CDT Gender Identity Female 01/09/2022 10:42 AM CDT Sexual Orientation Not on file Plan of Treatment Not on file
--- OUTSIDE RECORDS SUMMARY | 2025-01-19 15:39 | XMS_ITS | Patient Health Record ---
Author Organization [facility] Address [address] [facility] [address] [place] [id number] Care Team Providers Care Document Coordinator Name Role Phone Unique Pendleton Primary Care Provider [phone] Daniel Keys Unavailable [phone] Claudette Rees Unavailable [phone] Mar Paz Unavailable [phone] Allergies Allergen (clinical drug ingredient) Drug/Non Drug [...] ctive Results Component Value Reference Range Notes P-Magnesium Reviewed date:06/25/2024 08:39:31 AM Interpretation: Performing Lab: Notes/Report: Test performed by [facility] [address] [place], [place] [address] , [address], [place] [address] Sawyer Hyman MD, Glass Edger CLIA: [id number] Magnesium 1.2 1.6-2.4 mg/dL P-Comprehensive Metabolic Pa lyndsey (CMP) Reviewed date:06/25/2024 08:39:31 AM Interpretation: Performing Lab: Notes/Report: Test performed by [facility] [address] [facility] , [address], [place] [address] Sawyer Hyman MD, Glass Edger CLIA: [id number] Sodium 142 135-145 mmol/L Potassium 4.6 3.5-5.3 mmol/L Chloride 105 97-108 mmol/L CO2 25 22-32 mmol/L Glucose 109 65-99 mg/dL BUN 22 8-23 mg/dL Creatinine 1.39 0.50-1.00 mg/dL Calcium 8.9 8.6-10.4 mg/dL eGFR by Creatinine 37 >59 mL/min/1.73m2 Protein 5.8 6.0-8.3 g/dL Albumin 3.8 3.5-5.3 g/dL Alkaline Phosphatase 45 35-121 IU/L ALT (SGPT) 11 <5-47 IU/L AST (SGOT) 16 <5-40 IU/L Bilirubin, Total 0.2 <0.2-1.2 mg/dL A/G Ratio 1.9 1.1-2.5 CBC Venipuncture (in house) Reviewed date:06/25/2024 08:39:31 AM Interpretation: Performing Lab: Notes/Report: wbc 3.9 3.5 - 10 lymph 17.1 15 - 50 mid 4.2 2 - 15 gran 78.7 35 - 80 rbc 3.59 3.5 - 5.5 hgb 10.9 11.5 - 16.5 hct 32.6 35 - 55 mcv 90.7 75 - 100 mch 30.3 25 - 35 mchc 33.4 31 - 38 platlet 246 100 - 400 CBC Venipuncture (in house) Reviewed date:01/03/2025 10:10:06 [...] Interpretation:464 Performing Lab: Notes/Report: Test performed by [facility] [address] , [address], [place] [address] Sawyer Hyman MD, Glass Edger CLIA: [id number] Vitamin B12 942 292-4606 pg/mL P-Comprehensive Metabolic Pa lyndsey (CMP) Reviewed date:01/03/2025 10:10:06 PM Interpretation:GFR 39 Performing Lab: Notes/Report: Test performed by [facility] [address] , [address], [place] [address] Sawyer Hyman MD, Glass Edger CLIA: [id number] Sodium 143 135-145 mmol/L Potassium 4.0 3.5-5.3 [...] Interpretation:1.4 Performing Lab: Notes/Report: Test performed by [facility] [address] , [address], [place] [id number] Sawyer Hyman MD, Glass Edger CLIA: [id number] Magnesium 1.4 1.6-2.4 mg/dL P-TSH Reviewed date:01/03/2025 10:10:06 PM Interpretation:3.24 Performing Lab: Notes/Report: Test performed by [facility] [address] , [address], [place] [address] Sawyer Hyman MD, Glass Edger CLIA: [id number] TSH 3.24 0.43-5.25 mU/L Mammogram Reviewed date:04/10/2024 09:36:02 AM Interpretation:benign Performing Lab: Notes/Report: benign result benign Reason For Referral No Information Medications Medication SIG (Take, Route, Frequency, Duration) Notes Start Date End Date Status Mometasone Furoate 0.1 % 1 application Externally Once a day 01/19/2025 Active Vitamin D 50 MCG (2000 UT) [...] Once a day 06/23/2024 Active Diclofenac Active Flonase Allergy Relief 50 MCG/ACT 2 spray in each nostril Nasally Once a day; Duration: 30 day(s) 04/27/2024 Active Benazepril HCl 20 MG 1 tab(s) orally onc e a day Active Potassium Chloride ER 10 MEQ 1 cap(s) or ally 2 times a day Active Tricor 48 MG 1 tab(s) orally once a day; Duration: 90 days Active Immunizations Vaccine Route Administration Date Status Comme nts COVID 19 Moderna Unknown 08/17/2020 Administered COVID 19 Moderna Unknown 09/21/2020 Administered COVID 19 Moderna Unknown 06/21/2021 Administered COVID 19 Moderna Unknown 11/27/2021 Administered Fluzone High Dose (65yr and older) IM Intramuscular 04/20/2013 Administered Fluzone High Dose (65yr and older) IM Intramuscular 05/14/2016 Administered Fluzone High Dose (65yr and older) IM Intramuscular 04/19/2017 Administered Fluzone High Dose (65yr and older) IM Intramuscular 04/15/2018 Administered Fluzone High Dose (65yr and older) IM Intramuscular 06/01/2019 Administered Fluzone High Dose (65yr and older) IM Intramuscular 04/07/2020 Administered Fluzone High Dose (65yr and older) IM Intramuscular 04/28/2021 Administered Fluzone High Dose (65yr and older) IM Intramuscular 05/22/2022 Administered Fluzone High Dose (65yr and older) IM Intramuscular 05/03/2023 Administered Fluzone High Dose (65yr and older) IM Intramuscular 04/15/2024 Administered H1N1 flu vaccine IM Intramuscular 06/13/2009 Administered pneumovax IM Intramuscular 06/13/2005 Administered PNEUMOVAX 23 VACCINE IM Intramuscular 05/29/2011 Administered PNEUMOVAX 23 VACCINE IM Intramuscular 05/31/2018 Administered Prevnar (PCV13) IM Intramuscular 05/14/2016 Administered Prevnar (PCV20) IM Intramuscular 05/07/2023 Administered Sandy Hawkins administered per [facility], failed to document in ecw xFlu shot-36 months and older IM Intramuscular 05/21/2005 Administered xFlu shot-36 months and older IM Intramuscular 05/24/2006 Administered xFlu shot-36 months and older IM Intramuscular 05/22/2007 Administered xFlu shot-36 months and older IM Intramuscular 05/10/2008 Administered xFlu shot-36 months and older IM Intramuscular 06/13/2009 Administered xFluzone (6mos and older)-trivalent IM Intramuscular 05/02/2010 Administered xFluzone-trivale nt-medicare pts. IM Intramuscular 05/22/2011 Administered xFluzone-trivale nt-medicare pts. IM Intramuscular 05/22/2012 Administered Problems Problem Type SNOMED Code ICD Code Onset Dates Problem Status W/U Status Risk Notes Problem Sinusitis (82223935) Sinusitis (J32.9) Active c onfirmed Problem Chronic renal insufficiency (450175716) Chronic renal insufficiency (N18.9) Active confirmed Problem Hypertriglyceridemia (079350639) Hypertriglyceridemia (E78.1) Active confirmed Problem Anxiety (86244673) Anxiety (F41.9) Active confi rmed Problem Hypertension (11819495) Hypertension (I10) Active confirmed Problem Osteopenia (634402046) Osteopenia (M85.80) Active confirmed Problem Sciatic nerve lesion (941005762) Piriformis syndrome of left side (G57.02) Active confirmed Problem Osteoarthritis (712710786) Osteoarthritis (M19.90) Active confirmed Problem Paresthesia (38301606) Paresthesia (R20.2) Active confirmed Problem Iron deficiency anemia (25788538) Iron deficiency anemia (D50.9) Active confirmed Problem Vitamin B12 deficiency (non anemic) (87366796) Vitamin B 12 deficiency (E53.8) Active confirmed Problem Sciatica (62543941) Sciatica of left side (M54.32) Active confirmed Problem Chronic maxillary sinusitis (19003875) Chronic maxillary sinusitis (J32.0) Active confirmed Problem Crohn's disease of large bowel (5002901) Crohn's disease of large intestine without complications (K50.10) Active confirmed Problem Pulmonary fibrosis (46658370) Pulmonary fibrosis (J84.10) Active confirmed Problem Crohn disease (15709706) Crohn disease (K50.90) Active confirmed Problem History of tuberculosis (610772736) 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) Active confirmed Problem Transient cerebral ischemia (838749611) Transient cerebral ischemia, unspecified type (G45.9) Active confirmed Problem Localized, primary osteoarthritis of the pelvic region and thigh (835810939) 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) Active confirmed Problem Arthritis of right knee (1612650804038616) Arthritis of knee, 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) Active confirmed Problem Sciatica (35753578) Left sciatic nerve pain (M54.32) Active confirmed Problem Chronic anemia (046744817) Chronic anemia (D64.9) Active confirmed Problem Localized, primary osteoarthritis of the wrist (711458700) 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 Vital Signs Heart Rate 83 /min 01/19/2025 Blood pressure diastolic 74 mm Hg 01/19/2025 Height 64 in 01/19/2025 Blood pressure systolic 133 mm Hg 01/19/2025 Weight 125.2 lbs 01/19/2025 BMI 21.49 kg/m2 01/19/2025 Encounters Encounter Location Date Provider Diagnosis [facility] [address] [facility] [address] [facility] [address] [place] [id number] 01/20/2024 R Mono Pendleton Vitamin B12 deficien cy E53.8 [facility] [address] [facility] [address] [facility] [address] [place] [id number] 02/07/2024 R Mono Pendleton Vitamin B12 deficien cy E53.8 [facility] [address] [place], [place] [id number] 02/13/2024 R Mono Helder Leg pain M79.606 [facility] [address] [place], [place] [id number] 02/26/2024 R Mono Helder Vitamin B12 deficien cy E53.8 [facility] [address] [place] [id number] 03/11/2024 R Mono Helder Vitamin B12 deficien cy E53.8 [facility] [address] [place] [id number] 03/30/2024 R Mono Helder Vitamin B12 deficien cy E53.8 [facility] [address] [place] [id number] 04/15/2024 Daniel [place] Vitamin B12 deficien cy E53.8 [facility] [address] [place], [place] [id number] 04/27/2024 Claudette Rees Sinusitis J32.9 [facility] [address] [place], [place] [id number] 05/06/2024 R Mono Helder Vitamin B12 deficien cy E53.8 [facility] [address] [place] [id number] 05/21/2024 R Mono Helder B12 vitamin deficien cy 266.2 [facility] [address] [place] [id number] 06/05/2024 R Mono Helder Vitamin B 12 deficie ncy E53.8 [facility] [address] [place] [id number] 06/23/2024 R Mono Helder Leg edema R60.0 ; Hypertension I10 ; Chronic renal insufficiency N18.9 ; Hypertriglyceridemia E78.1 ; Vitamin B 12 deficiency E53.8 and Pulmonary fibrosis J84.10 [facility] [address] [place] [id number] 07/16/2024 R Mono Helder Arthritis of knee, r ight M19.90 ; Bakers cyst of knee, right M71.21 and Vitamin B 12 deficiency E53.8 [facility] [address] [facility] [address] [place], [place] [id number] 08/10/2024 R Mono Helder Vitamin B 12 deficie ncy E53.8 [facility] [address] [facility] [address] [place] [id number] 08/24/2024 R Mono Helder Vitamin B 12 deficie ncy E53.8 [facility] [address] [facility] [address] [place] [id number] 10/09/2024 R Mono Helder Vitamin B 12 deficie ncy E53.8 and Hypertension I10 [facility] [address] [place], [place] [id number] 10/28/2024 R Mono Helder Vitamin B 12 deficie ncy E53.8 [facility] [address] [facility] [address] [place] [id number] 11/12/2024 R Mono Helder Vitamin B 12 deficie ncy E53.8 [facility] [address] [place] [id number] 12/17/2024 R Mono Helder Vitamin B 12 deficie ncy E53.8 [facility] [address] [place], [place] [id number] 12/24/2024 Mar Paz Acute left ankle talita n M25.572 ; BMI 21.0-21.9, adult Z68.21 ; Pulmonary fibrosis J84.10 ; Crohn disease K50.90 ; Chronic anemia D64.9 and Crohn's disease of large intestine without complications K50.10 [facility] [address] [facility] [address] [place] [id number] 12/29/2024 R Mono Helder Adult general medica l examination Z00.00 ; Paresthesia R20.2 ; Iron deficiency anemia D50.9 ; Leg edema R60.0 ; Pulmonary fibrosis J84.10 ; Anxiety F41.9 ; Crohn disease K50.90 ; BMI 20.0-20.9, adult Z68.20 ; Osteopenia M85.80 ; History of TB (tuberculosis) Z86.11 ; Hypertension I10 and Hypertriglyceridemia E78.1 [facility] [address] [place] [id number] 01/11/2025 Daniel [place] Vitamin B 12 deficie ncy E53.8 [facility] [address] [place] [id number] 01/19/2025 R Mono Helder Acute left ankle talita n M25.572 ; BMI 21.0-21.9, adult Z68.21 ; Pulmonary fibrosis J84.10 ; Crohn disease K50.90 ; Chronic anemia D64.9 and Crohn's disease of large intestine without complications K50.10 [facility] [address] [place] [id number] 02/20/2024 R Mono Helder [facility] [address] [place] [id number] 04/21/2024 R Mono Helder [facility] [address] [place], [place] [id number] 06/25/2024 R Mono Helder [facility] [address] [place] [id number] 06/25/2024 R Mono Helder [facility] [address] [place] [id number] 10/12/2024 R Mono Helder [facility] [address] [place] [id number] 12/17/2024 R Mono Helder [facility] [address] [place] [id number] 01/03/2025 R Mono Helder [facility] [address] [place], [place] [id number] 01/04/2025 R Mono Helder Anxiety F41.9 [facility] [address] [place], [place] [id number] 01/11/2025 Unique Pendleton Hypertension I10 Assessments Encounter Date Diagnosis (ICD Code) Assessment Notes Treatment Notes Treatment Clinical Notes Section Notes 01/20/2024 Vitamin B12 deficien cy (ICD-10 - E53.8) 02/07/2024 Vitamin B12 deficien cy (ICD-10 - E53.8) 02/13/2024 Leg pain (ICD-10 - M79.606) She will bring in copies of additional labs she has at home. Hopefully this includes results of thyroid functions and electrolytes. If these are normal. Consider trial of gabapentin. --- Symptoms seem most consistent with neuropathy or variant of restless legs. 02/26/2024 Vitamin B12 deficien cy (ICD-10 - E53.8) 03/11/2024 Vitamin B12 deficien cy (ICD-10 - E53.8) 03/30/2024 Vitamin B12 deficien cy (ICD-10 - E53.8) 04/15/2024 Vitamin B12 deficien cy (ICD-10 - E53.8) 04/27/2024 Sinusitis (ICD-10 - J32.9) pt cannot take many ABX; will try Zithromax; encouraged the use of the Flonase, fluids, rest, supportive measures for fever/symptom relief 05/06/2024 Vitamin B12 deficien cy (ICD-10 - E53.8) 05/21/2024 B12 vitamin deficien cy (ICD9-CM - 266.2) 06/05/2024 Vitamin B 12 deficie ncy (ICD-10 - E53.8) 06/23/2024 Hypertension (ICD-10 - I10) 06/23/2024 Leg edema (ICD-10 - R60.0) 07/16/2024 Bakers cyst of knee, right (ICD-10 - M71.21) 07/16/2024 Arthritis of knee, right (ICD-10 - M19.90) Continue diclofenac cream. If symptoms persist consider physical therapy. 08/10/2024 Vitamin B 12 deficie ncy (ICD-10 - E53.8) 08/24/2024 Vitamin B 12 deficie ncy (ICD-10 - E53.8) 10/09/2024 Vitamin B 12 deficie ncy (ICD-10 - E53.8) 10/28/2024 Vitamin B 12 deficie ncy (ICD-10 - E53.8) 11/12/2024 Vitamin B 12 deficie ncy (ICD-10 - E53.8) 12/17/2024 Vitamin B 12 deficie ncy (ICD-10 - E53.8) 12/24/2024 Acute left ankle talita n (ICD-10 - M25.572) Patient would like to try steroids before getting x-rays. 12/24/2024 BMI 21.0-21.9, adult (ICD-10 - Z68.21) 12/29/2024 Paresthesia (ICD-10 - R20.2) 01/04/2025 Anxiety (ICD-10 - F41.9) 01/11/2025 Hypertension (ICD-10 - I10) 01/11/2025 Vitamin B 12 deficie ncy (ICD-10 - E53.8) 12/29/2024 Adult general medica l examination (ICD-10 - Z00.00) Patient instructed to return to office Annually for Annual Wellness Visits to include annual screenings of Pain assessment, Functional Ability assessment, Cognitive Ability assessment, Fall Risk assessment, Depression screening and Bladder control screening. 01/19/2025 Acute left ankle talita n (ICD-10 - M25.572) Patient would like to try steroids before getting x-rays. 01/19/2025 BMI 21.0-21.9, adult (ICD-10 - Z68.21) 12/29/2024 Iron deficiency anem ia (ICD-10 - D50.9) 07/16/2024 Vitamin B 12 deficie ncy (ICD-10 - E53.8) 12/24/2024 Pulmonary fibrosis (ICD-10 - J84.10) 10/09/2024 Hypertension (ICD-10 - I10) 06/23/2024 Chronic renal insufficiency (ICD-10 - N18.9) 06/23/2024 Hypertriglyceridemia (ICD-10 - E78.1) 12/24/2024 Crohn disease (ICD-1 0 - K50.90) 12/29/2024 Leg edema (ICD-10 - R60.0) 01/19/2025 Pulmonary fibrosis (ICD-10 - J84.10) 01/19/2025 Crohn disease (ICD-1 0 - K50.90) 12/29/2024 Pulmonary fibrosis (ICD-10 - J84.10) 12/24/2024 Chronic anemia (ICD- 10 - D64.9) 06/23/2024 Vitamin B 12 deficie ncy (ICD-10 - E53.8) 06/23/2024 Pulmonary fibrosis (ICD-10 - J84.10) 12/24/2024 Crohn's disease of large intestine without complications (ICD-10 - K50.10) 12/29/2024 Anxiety (ICD-10 - F41.9) 01/19/2025 Chronic anemia (ICD- 10 - D64.9) 12/29/2024 Crohn disease (ICD-1 0 - K50.90) 01/19/2025 Crohn's disease of large intestine without complications (ICD-10 - K50.10) 12/29/2024 BMI 20.0-20.9, adult (ICD-10 - Z68.20) 12/29/2024 Osteopenia (ICD-10 - M85.80) 12/29/2024 History of TB (tuberculosis) (ICD-10 - Z86.11) 12/29/2024 Hypertension (ICD-10 - I10) 12/29/2024 Hypertriglyceridemia (ICD-10 - E78.1) Plan Of Treatment Pending Test Test Name Order Date Bone density 12/29/2024 Next Appt Details Provider Name:Unique Arias, 01/19/2025 03:15:00 PM, [address] [facility], [address], [place], [place], [id number], Insurance Providers Payer Name Payer Address Payer Phone Subscriber Number Group Number Insured Name Patient Relationship to Insured Coverage Start Date Coverage End Date MEDICARE PART B [address] [address] [place] acrroll[place] [id number] PARVIN MALONE Self - patient is the insured [facility] [employer] [address] [place] [id number] PARVIN MALONE Self - patient is the insured Medications Administered Medication Instructions Date of Administration Dosage Notes B-12 11/26/2006 1000mcg B-12 01/01/2007 1 mL B-12 01/29/2007 1 mL B-12 02/27/2007 1 mL B-12 04/09/2007 1 mL B-12 05/12/2007 1 mL B-12 06/13/2007 1 mL B-12 07/11/2007 1 mL B-12 09/04/2007 B-12 10/07/2007 B-12 11/10/2007 1 mL B-12 12/18/2007 1 mL B-12 01/28/2008 1 mL B-12 03/09/2008 1 mL B-12 05/10/2008 1 mL B-12 06/22/2008 1 mL B-12 07/27/2008 1 mL B-12 09/01/2008 1 mL B-12 11/01/2008 1 mL B-12 11/25/2008 1 mL B-12 01/03/2009 1mL B-12 02/02/2009 1 mL B-12 03/01/2009 B-12 03/28/2009 1 mL B-12 05/03/2009 1 mL B-12 06/06/2009 1 mL B-12 07/12/2009 1 mL B-12 08/15/2009 1 mL B-12 09/20/2009 1 mL B-12 10/19/2009 1mL B-12 11/29/2009 1 mL B-12 01/05/2010 1mL B-12 02/07/2010 1 mL B-12 03/23/2010 1 mL B-12 04/24/2010 1 mL B-12 06/02/2010 1 mL B-12 07/10/2010 1 mL B-12 08/21/2010 1 mL B-12 09/26/2010 1 mL B-12 10/31/2010 1mL B-12 11/28/2010 1 mL B-12 01/02/2011 1 mL B-12 01/30/2011 1 mL B-12 03/23/2011 1000 ug B-12 05/07/2011 B-12 06/04/2011 B-12 07/24/2011 B-12 08/27/2011 B-12 09/28/2011 1 mL B-12 10/30/2011 B-12 12/06/2011 1 mL B-12 01/07/2012 B-12 02/14/2012 1 mL B-12 03/20/2012 B-12 04/23/2012 B-12 06/10/2012 1 mL B-12 07/18/2012 B-12 08/12/2012 B-12 09/29/2012 B-12 11/17/2012 1 mL B-12 12/29/2012 B-12 02/10/2013 B-12 03/19/2013 B-12 06/17/2013 B-12 07/22/2013 B-12 09/01/2013 B-12 10/07/2013 B-12 11/18/2013 B-12 12/28/2013 1 mL B-12 01/27/2014 1 mL B-12 02/24/2014 1 mL B-12 04/02/2014 1 mL B-12 05/05/2014 1 mL B-12 05/28/2014 1 mL B-12 08/13/2014 1 mL B-12 09/28/2014 1 mL B-12 11/12/2014 1 mL B-12 01/18/2015 1 mL B-12 03/01/2015 1 mL B-12 04/06/2015 1 mL B-12 05/16/2015 1 mL B-12 08/15/2015 1 mL B-12 10/03/2015 1 mL B-12 12/26/2015 1 mL B-12 01/31/2016 1 mL B-12 03/06/2016 1 mL B-12 04/04/2016 1 mL B-12 05/25/2016 1 mL B-12 06/21/2016 1 mL B-12 06/25/2016 1 mL B-12 08/03/2016 1 mL B-12 10/09/2016 1 mL B-12 10/24/2016 1 mL B-12 11/21/2016 1 mL B-12 12/27/2016 1 mL B-12 02/15/2017 1 mL B-12 04/03/2017 1 mL B-12 05/07/2017 1 mL B-12 06/07/2017 1 mL B-12 07/12/2017 1 mL B-12 09/11/2017 1 mL B-12 10/10/2017 1 mL B-12 11/07/2017 1 mL B-12 12/16/2017 1 mL B-12 02/07/2018 1 mL B-12 03/13/2018 1 mL B-12 04/04/2018 1 mL B-12 05/21/2018 1 mL B-12 07/03/2018 1 mL B-12 08/18/2018 1 mL B-12 09/24/2018 1 mL B-12 11/04/2018 1 mL B-12 12/17/2018 1 mL B-12 02/05/2019 1 mL B-12 04/03/2019 1 mL B-12 05/12/2019 1 mL B-12 06/15/2019 1 mL B-12 07/29/2019 1 mL B-12 11/02/2019 1 mL B-12 12/02/2019 1 mL B-12 01/15/2020 1 mL B-12 02/16/2020 1 mL B-12 03/30/2020 1 mL B-12 05/12/2020 1 mL B-12 06/24/2020 1 mL B-12 08/01/2020 1 mL B-12 09/08/2020 1 mL B-12 11/08/2020 1 mL B-12 12/26/2020 1 mL B-12 02/01/2021 1 mL B-12 03/09/2021 1 mL B-12 04/17/2021 1 mL B-12 05/30/2021 1 mL B-12 07/19/2021 1 mL B-12 09/27/2021 1 mL B-12 11/01/2021 1 mL B-12 01/02/2022 1 mL Pt tolerated w ell B-12 02/06/2022 1 mL B-12 03/13/2022 1 mL B-12 05/28/2022 1 mL B-12 07/03/2022 1 mL B-12 08/06/2022 1 mL B-12 09/11/2022 1 mL B-12 11/02/2022 1 mL B-12 11/29/2022 1 mL B-12 01/21/2023 1 mL B-12 03/01/2023 1 mL B-12 04/03/2023 1 mL B-12 05/03/2023 1 mL B-12 06/03/2023 1 mL B-12 07/02/2023 1 mL B-12 08/20/2023 1 mL B-12 09/18/2023 1 mL B-12 10/22/2023 1 mL B-12 11/20/2023 1 mL B-12 12/17/2023 1 mL B-12 01/02/2024 1 mL B-12 01/20/2024 1 mL B-12 02/07/2024 1 mL B-12 02/26/2024 1 mL B-12 03/11/2024 1 mL B-12 03/30/2024 1 mL B-12 04/15/2024 1 mL B-12 05/06/2024 1 mL B-12 05/21/2024 1 mL B-12 06/05/2024 1 mL B-12 06/23/2024 1 mL B-12 07/16/2024 1 mL B-12 08/10/2024 1 mL B-12 08/24/2024 1 mL B-12 10/09/2024 1 mL B-12 10/28/2024 1 mL B-12 11/12/2024 1 mL B-12 12/17/2024 1 mL B-12 01/11/2025 1 mL Depo- Medrol 40 mg/ml 08/16/2022 1.5 mL Depo- Medrol 40 mg/ml 09/11/2022 1.5 mL Depo- Medrol 40 mg/ml 06/13/2023 1.5 mL Depo- Medrol 40 mg/ml 12/12/2023 1.5 mL Depo- Medrol 40 mg/ml 12/17/2023 1 mL Depo- Medrol 40 mg/ml 07/16/2024 1.5 mL Dexamethasone 04/08/2015 1 mL Dexamethasone 11/08/2016 1 mL Dexamethasone 12/26/2017 1 mL Dexamethasone 02/20/2018 1 mL Dexamethasone 08/11/2018 1 mL Medical (General) History Medical History History ICD Code Crohns Disease Hypertension Anxiety TB 1967 Anemia Osteoporosis Chronic Renal Insufficiency Pulmonary Fibrosis Macular Degeneration Stage 3 Chronic Renal Failure Bakers cyst, right knee by US Surgical History Surgery Date(Month/Year) Small Bowel Resection Cholecystectomy C-scope 2016 C-scope and EGD 2019 Hospitalization History Reason Date(Month/Year) Hypertension- [facility] ER 12/28/2017
--- OUTSIDE RECORDS SUMMARY | 2025-01-19 15:39 | XMS_ITS | Encounter Summary ---
Author Organization [facility] Address [address] [place] [address] Care Team Providers Care Pleasure Craft Sailor Name Role Phone System, Provider Not In MD Primary Care Provider Unavailable Sal Mar MD Unavailable [phone] Edson Pendleton MD Primary Care Provider [phone] Encounter Details Date Type Department Care Team (Late st Contact Info) Description 07/19/2022 Orders Only [facility] [address] [place] [address] Fidel Vasquez MD [address] [place], [place] [id number] Social History Tobacco Use Types Packs/Day Years [...] Date/Time Associated Diagnosis Comments FERRITIN, SERUM Routine 07/19/2022 3:24 PM EST documented in this encounter Results * Ferritin, Serum (07/19/2022 3:24 PM EST) External Ferritin 14 13 - 157 ng/mL [facility] 07/19/2022 3:24 PM EST 07/19/2022 3:56 PM EST Fidel Vasquez MD LAB BLOOD ORDERABLES Final R esult [facility] [address] [place] [address], documented in this encounter Visit Diagnoses Not on filedocumented in this encounter Care Teams Pleasure Craft Sailor Relationship Specialty Start Date End Date System, Provider Not In, [address] [place] [address] PCP - General Family Medicine 07/15/21 10/20/23 Edson Pendleton MD [address] [facility] [address] [place] [address] PCP - General 10/21/23 Sal Mar MD [address] [id number] Medical Oncologist Hematology and Oncology 10/16/23 documented as of this encounter
--- OUTSIDE RECORDS SUMMARY | 2025-01-19 15:39 | XMS_ITS | Clinical Summary ---
Author Organization [employer] ([place], [place], [place], [place]) Address [address] [place] [address] Care Team Providers Care Sql Ssis Developer Name Role Phone Unavailable Primary Care Provider [...]
--- NOTE | 2025-01-19 15:41 | XR_ITS ---
FINAL REPORT CLINICAL HISTORY: PAIN FINDINGS: LEFT ANKLE Three views demonstrate no acute fracture or dislocation. The visualized joint spaces are normally aligned. There is mild soft tissue edema. IMPRESSION: No acute bony abnormality. Reviewed, Interpreted and Dictated by Luis Alfredo Peralta MD Transcribed by Daya Concepcion Authenticated and [facility]
== END 2025-01-19 23:59 | disposition home or self-care (01) ==
LOC: RAD 15:37
PROVIDERS: PCP Family Medicine; Visit Provider Family Medicine
DX: M25.572 Pain in left ankle and joints of left foot (principal)
CPT/HCPCS: 73610

== ENCOUNTER 2025-03-01 12:19 | Emergency (ER) | payer MEDICARE, SELFPAY ==
--- OUTSIDE RECORDS SUMMARY | 2025-01-11 09:20 | XMS_ITS ---
Author [facility] [address] [facility] 36 [facility] [address] [place] [phone] Care Team Providers Care Yeast Distiller Name Role Phone Unique Pendleton Primary Care Provider Daniel Keys [phone] REASON FOR VISIT B 12 INJECTION Encounters Encounter Location Date Provider Diagnosis Rob [address] [facility] [address] [place] [phone] 01/11/2025 Daniel Keys Vitamin B 12 deficie [...] ex:Female Date:01/11/2025 Address[address], [place] Pcp:Unique Pendleton Subjective: * Chief Complaints: * 1 . B 12 INJECTION. * Medical History: Objective: * Vitals: Assessment: * Assessment: 1. V itamin B 12 deficiency - E53.8 (Primary) Plan: * Treatment: * Therapeutic Injections: B-12 : 1 mL (Route: Intramuscular) given by JAMAR Willoughby on left gluteus (Vitamin B 12 deficiency) * Procedure Codes: J 3420 B-12, 49014 ADMINISTRATION OF INJECTION * Images: Billing Information: * Visit Code: * Procedure Codes: J3420 B-12. 62938 ADMINISTRATION OF INJECTION. * Electronic signature of Milena Keys MD on 03/01/2025 at 12:41 PM EDT Sign off status: Pending * Provider: Dominik Keys M.D. Date: 01/11/2025 Generated for Osmar gilbert/Nicolle/Arthur on: 03/01/2025 12:41 PM EDT
--- OUTSIDE RECORDS SUMMARY | 2025-01-19 11:15 | XMS_ITS ---
Author Organization [facility] Address [address] [place] [phone] Care Team Providers Care Software Development Coordinator Name Role Phone Unique Pendleton Primary Care [...] 01/19/2025 Encounters Encounter Location Date Provider Diagnosis [facility] [facility] [address], [place] [phone] 01/19/2025 R Mono Pendleton Acute left ankle [...] rt test results, Reason: Progress Notes * CHRIS MALONE:1940 (84 yo F)Acc No.nb bmDOS:01/19/2025 Progress Notes Patient: PARVIN CHAIREZ Account Number:nb bm Provider: Unique Pendleton M.D. :1940 A ge:84 Y S ex:Female Date:01/19/2025 Address:[id number] Subjective: * Chief Complaints: * 1 . [...] * Hospitalization/Major Diagno stic Procedure: H ypertension- [facility] ER 12/28/2017. * Family History: F ather: , diagnosed with Hypertension, Stroke. M other: . C hiltutu: pt does not have children. 3 sister(s) [...] czema - L30.9 ? 3 . B [place] 21.0-21.9, adult - Z68.21 Plan: * Treatment: Notes: Recommend compression socks??2.?Eczema? Start Mometasone Furoate Cream, 0.1 %, 1 application, Externally, Once a day, 15 gm.?? * Procedure Codes: G 2211 Complex e/m visit add on, G1520 BMI<30 AND >=22 CALC & DOCU, G1883 BP SCR PRFRM RCMDD DEFIND SCR INTVL, G3968 MOST RECENT SYSTOLIC BP < 140MM HG, G8754 MOST RECENT DIASTOLIC BP < 90MM HG, 1036F TOBACCO NON-USER * Follow Up: v ia phone to report test results * Images: Billing Information: * Visit Code: 07042 Office Visit, Est Pt., Level 3. * Procedure Codes: G2211 Complex e/m visit add on. G8420 BMI<30 AND >=22 CALC & DOCU. G8783 BP SCR PRFRM RCMDD DEFIND SCR INTVL. G8752 MOST RECENT SYSTOLIC BP < 140MM HG. G8754 MOST RECENT DIASTOLIC BP < 90MM HG. 1036F TOBACCO NON-USER. * Electronic signature of Unique Pendleton MD on 03/01/2025 at 12:42 PM EDT Sign off status: Pending * Provider: Unique Pendleton M.D. Date: 0 01/19/2025 Generated for Osmar gilbert/Nicolle/Crystalitting on: 0 03/01/2025 12:42 PM EDT History and Physical Notes * Examination Category Sub-Category Detail Notes Category Not es General Examination Extremities: There is mil d to moderate swelling and tenderness over the left distal fibula and lateral malleolus. Range of motion ankle is nearly full with no pain.
--- OUTSIDE RECORDS SUMMARY | 2025-01-28 13:45 | XMS_ITS | Encounter Summary ---
Author Organization [facility] Address [address] [place] [address] Care Team Providers Care Group Rooms Coordinator Name Role Phone Sal Mar MD Unavailable [phone] Edson Pendleton MD Primary Care Provider [phone] Reason for Visit * Reason Comments Follow-up Encounter Details Date Type Department Care Team (Late st Contact Info) Description 01/28/2025 1:45 PM EDT Office Visit [facility] [address] [place] [address] Sal Mar MD [address] [address] Iron deficiency anemia due to [...] difficulty in coming all the way the [place]. Current Outpatient Medications: benazepril-hydroCHLOROthiazide [...] recommendation of the National Kidney Foundation and [place] [employer] of Nephrology. This calculation has not [...] documented in this encounter Plan of Treatment Not on file documented as of this encounter Visit Diagnoses Diagnosis Iron deficiency 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 blood loss- Primary Iron deficiency anemia secondary to blood loss (chronic) Crohn's disease of colon with complication (CMS/HCC) Stage 3 chronic kidney disease, unspecified whether stage 3a or 3b CKD (CMS/HCC) documented in this encounter Additional Health Concerns Assessment Noted Time A fall risk assessment has been complete d for the patient 11/05/2023 1:17 PM EDT documented as of this encounter Care Teams Group Rooms Coordinator Relationship Specialty Start Date End Date Edson Pendleton MD [address] [place] [address] PCP - General 10/21/23 Sal Mar MD [address] [place] [address] Medical Oncologist Hematology and Oncology 10/16/23 documented as of this encounter
--- OUTSIDE RECORDS SUMMARY | 2025-02-04 14:00 | XMS_ITS | Encounter Summary ---
Author Organization [facility] Address [address] [place] [address] Care Team Providers Care Paper Cone Maker Name Role Phone Sal Mar MD Unavailable [phone] Edson Pendleton MD Primary Care Provider [phone] Reason for Visit * Episode Based Medications (Routine) - Authorized Specialty Diagnoses / Procedures Referred By Contac t Referred To Contact Diagnoses Stage 3 chronic kidney disease, unspecified whether stage 3a or 3b CKD (CMS/HCC) Crohn's disease of colon with complication (CMS/HCC) Iron deficiency 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 blood loss Sal Mar MD [address] [place] [phone] Phone: tel: fax: Sal Mar MD [address] [place] [phone] Phone: tel: fax: Referral ID Status Reason Start Date Expiration Date V isits Requested Visits Authorized [id number] Authorized 02/04/2025 08/06/2026 1 2 Encounter Details Date Type Department Care Team (Late st Contact Info) Description 02/04/2025 2:00 PM EDT Infusion [facility] at [facility] [address] [place] [address] Iron deficiency 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 blood loss (Primary Dx); Stage 3 chronic kidney disease, unspecified whether stage 3a or 3b CKD (CMS/HCC); Crohn's disease of colon with complication ([facility]/HCC) Social History Tobacco Use Types Packs/Day Years [...] (CMS/HCC) Crohn's disease of colon with complication (CMS/[facility]) documented in this encounter Administered Medications Inactive [...] documented as of this encounter Care Teams Paper Cone Maker Relationship Specialty Start Date End Date Edson Pendleton MD [address] [place] [address] PCP - General 10/21/23 Sal Mar MD [address] [place] [address] Medical Oncologist Hematology and Oncology 10/16/23 documented as of this encounter
--- OUTSIDE RECORDS SUMMARY | 2025-02-16 14:00 | XMS_ITS | Encounter Summary ---
Author Organization Address [address] [place] [address] Care Team Providers Care Seat Cover Installer Name Role Phone Sal Mar MD Unavailable [phone] Edson Pendleton MD Primary Care Provider [phone] Reason for Visit * Reason Comments OP Infusion * Episode Based Medications (Routine) - Authorized Specialty Diagnoses / Procedures Referred By Contac t Referred To Contact Diagnoses Stage 3 chronic kidney disease, unspecified whether stage 3a or 3b CKD (CMS/HCC) Crohn's disease of colon with complication (CMS/HCC) Iron deficiency 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 blood loss Sal Mar MD [address] [place] [phone] Phone: tel: fax: Sal Mar MD [address] [place] [phone] Phone: tel: fax: Referral ID Status Reason Start Date Expiration Date V isits Requested Visits Authorized [id number] Authorized 02/04/2025 08/06/2026 1 2 Encounter Details Date Type Department Care Team (Late st Contact Info) Description 02/16/2025 2:00 PM EDT Infusion [facility] at [facility] [address] [place] [address] Iron deficiency anemia due to [...] documented as of this encounter Care Teams Seat Cover Installer Relationship Specialty Start Date End Date Edson Pendleton MD [address] [place] [address] PCP - General 10/21/23 Sal Mar MD [address] [place] [address] Medical Oncologist Hematology and Oncology 10/16/23 documented as of this encounter
--- OUTSIDE RECORDS SUMMARY | 2025-02-25 09:45 | XMS_ITS ---
Author Organization [facility] Address [address] [place] [phone] Care Team Providers Care Passenger Representative Name Role Phone Unique Pendleton Primary Care Provider REASON FOR VISIT back pain Encounters Encounter Location Date Provider Diagnosis [facility] [address] [place] [phone] 02/25/2025 Unique Pendleton Plan Of Treatment No Information Progress Notes * MERNA MALONEOLYDOB:1940 (84 yo F)Acc No.nb bmDOS:02/25/2025 Progress Notes Patient: PARVIN CHAIREZ Account Number:nb bm Provider: Unique Pendleton M.D. :1940 A ge:84 Y S ex:Female Date:02/25/2025 Address[address], [place] Subjective: * Chief Complaints: * 1 . Back pain. * Medical History: Objective: * Vitals: Assessment: Plan: * Treatment: * Images: Billing Information: * Visit Code: * Procedure Codes: * Electronic signature of Unique Pendleton MD on 03/01/2025 at 12:42 PM EDT Sign off status: Pending * Provider: Unique Pendleton M.D. Date: 02/25/2025 Generated for Printi ng/Faxing/eTransmitting on: 03/01/2025 12:42 PM EDT
[2025-03-01 12:26] VITALS: BP 163/90; PULSE 121; RESP 20; TEMP 37.1; O2SAT 97; BMI 22.1
--- OUTSIDE RECORDS SUMMARY | 2025-03-01 12:37 | XMS_ITS | Encounter Summary ---
Author Organization [facility] Address [address] [place] [address] Care Team Providers Care Coding Compliance Manager Name Role Phone System, Provider Not In MD Primary Care Provider Unavailable Sal Mar MD Unavailable [phone] Edson Pendleton MD Primary Care Provider [phone] Encounter Details Date Type Department Care Team (Late st Contact Info) Description 01/08/2022 Orders Only [facility] @ [facility] [address] [place] [address] Fidel Vasquez MD [address] [place], [place] [id number] Social History Tobacco Use Types Packs/Day Years [...] PM EDT) External Pancreatic Elastase 287 mcg/g [facility] Comment: Adult and Pediatric Reference Ranges for Pancreatic Elastase-1: Normal: >200 mcg/g Moderate Pancreatic Insufficiency: 100-200 mcg/g Severe Pancreatic Insufficiency: <100 mcg/g Elastase-1 (E-1) assay results are expressed in mcg/g, which represent mcg E1/g feces. It is not necessary to interrupt enzyme substitution therapy. TEST PERFORMED AT: [employer] [address] [place] [address] LI CALERO MD,PHD,SEBLE 01/08/2022 12:3 8 PM EDT 01/08/2022 12:45 PM EDT Fidel Vasquez MD LAB BODY FLUIDS AND STOOLS O RDERABLES Final Result [facility] [address] [place] [address], documented in this encounter Visit Diagnoses Not on filedocumented in this encounter Care Teams Coding Compliance Manager Relationship Specialty Start Date End Date System, Provider Not In, [address] [place] [address] PCP - General Family Medicine 07/15/21 10/20/23 Edson Pendleton MD [address] [facility] [address] [facility] [address] [place] [address] PCP - General 10/21/23 Sal Mar MD [address] [place] [address] Medical Oncologist Hematology and Oncology 10/16/23 documented as of this encounter
--- OUTSIDE RECORDS SUMMARY | 2025-03-01 12:37 | XMS_ITS | Encounter Summary ---
Author Organization [facility] Address [address] [place] [address] Care Team Providers Care Way Inspector Name Role Phone System, Provider Not In MD Primary Care Provider Unavailable Sal Mar MD Unavailable [phone] Edson Pendleton MD Primary Care Provider [phone] Encounter Details Date Type Department Care Team (Late st Contact Info) Description 01/03/2022 Orders Only [facility] @ [facility] [address] [place] [address] Fidel Vasquez MD [address] [place], [place] [id number] Social History Tobacco Use Types Packs/Day Years [...] External Ferritin 169(H) 13 - 157 ng/mL [facility] 01/03/2022 4:15 PM EDT 01/03/2022 5:13 PM EDT us Fidel Vasquez MD LAB BLOOD ORDERABLES Final R esult [facility] [address] [place] [address], documented in this encounter Visit Diagnoses Not on filedocumented in this encounter Care Teams Way Inspector Relationship Specialty Start Date End Date System, Provider Not In, [address] [place] [address] PCP - General Family Medicine 07/15/21 10/20/23 Edson Pendleton MD [address] [place] [address] PCP - General 10/21/23 Sal Mar MD [address] [place] [address] Medical Oncologist Hematology and Oncology 10/16/23 documented as of this encounter
--- OUTSIDE RECORDS SUMMARY | 2025-03-01 12:37 | XMS_ITS | Encounter Summary ---
Author Organization [facility] Address [address] [place] [address] Care Team Providers Care School Administrator Name Role Phone Sal Mar MD Unavailable [phone] Edson Pendleton MD Primary Care Provider [phone] Encounter Details Date Type Department Care Team (Late st Contact Info) Description 01/28/2025 Orders Only [facility] at [address] [address] Carrie Chavira, PharmD Inpatient Pharmacy [address] [place] [address] Social History Tobacco Use Types Packs/Day Years [...] documented as of this encounter Visit Diagnoses Not on filedocumented in this encounter Additional Health Concerns Assessment Noted Time A fall risk assessment has been complete d for the patient 11/05/2023 1:17 PM EDT documented as of this encounter Care Teams School Administrator Relationship Specialty Start Date End Date Edson Pendleton MD [address] [place] [address] PCP - General 10/21/23 Sal Mar MD [address] [place] [address] Medical Oncologist Hematology and Oncology 10/16/23 documented as of this encounter
--- OUTSIDE RECORDS SUMMARY | 2025-03-01 12:37 | XMS_ITS | Encounter Summary ---
Author Organization [facility] Address [address] [place] [address] Care Team Providers Care Fitter Tacker Name Role Phone Sal Mar MD Unavailable [phone] Edson Pendleton MD Primary Care Provider [phone] Reason for Visit * Reason Onset Date Comments Requesting Appt 01/21/2025 Encounter Details Date Type Department Care Team (Late st Contact Info) Description 01/21/2025 Telephone [facility] [address] [place] [address] Sal Mar MD [address] [address] Requesting Appt Social History Tobacco Use Types Packs/Day Years Used Date Smoking Tobacco: Former Cigarettes Q uit: 1976 Smokeless Tobacco: Never Comments Unknown Sex and Gender Information Value Date Recorded Sex Assigned at Female 06/10/2023 9:48 PM EST Legal Sex Female 7:40 PM EDT Gender Identity Female 06/10/2023 9:48 PM EST Sexual Orientation Straight 06/10/2023 9: 48 PM EST documented as of this encounter Miscellaneous Notes * Telephone Encounter - Cindy Rae - 01/22/2025 3:50 PM EDT Scheduled with patient * Telephone Encounter - Sal Mar MD - 01/21/2025 12:05 PM EDT Can we accommodate this? documented in this encounter Plan of Treatment Not on file documented as of this encounter Visit Diagnoses Not on filedocumented in this encounter Additional Health Concerns Assessment Noted Time A fall risk assessment has been complete d for the patient 11/05/2023 1:17 PM EDT documented as of this encounter Care Teams Fitter Tacker Relationship Specialty Start Date End Date Edson Pendleton MD [address] [place] [address] PCP - General 10/21/23 Sal Mar MD [address] [place] [address] Medical Oncologist Hematology and Oncology 10/16/23 documented as of this encounter
--- OUTSIDE RECORDS SUMMARY | 2025-03-01 12:37 | XMS_ITS | Encounter Summary ---
Author Organization [facility] Address [address] [place] [address] Care Team Providers Care Pillar Worker Name Role Phone Sal Mar MD Unavailable [phone] Edson Pendleton MD Primary Care Provider [phone] Encounter Details Date Type Department Care Team (Latest Contact Info) Description 02/16/2025 Travel Social History Tobacco Use Types Packs/Day Years Used Date Smoking Tobacco: Former Cigarettes Q uit: 1975 Smokeless Tobacco: Never Comments Unknown Sex and Gender Information Value Date Recorded Sex Assigned at Female 06/10/2023 9:48 PM EST Legal Sex Female 7:40 PM EDT Gender Identity Female 06/10/2023 9:48 PM EST Sexual Orientation Straight 06/10/2023 9: 48 PM EST documented as of this encounter Functional Status * Calculated C-SSRS [...] documented as of this encounter Care Teams Pillar Worker Relationship Specialty Start Date End Date Edson Pendleton MD [address] [place] [address] PCP - General 10/21/23 Sal Mar MD [address] [place] [address] Medical Oncologist Hematology and Oncology 10/16/23 documented as of this encounter
--- OUTSIDE RECORDS SUMMARY | 2025-03-01 12:37 | XMS_ITS | Encounter Summary ---
Author Organization [facility] Address [address] [place] [address] Care Team Providers Care Ostrich Farmer Name Role Phone Sal Mar MD Unavailable [phone] Edson Pendleton MD Primary Care Provider [phone] Encounter Details Date Type Department Care Team (Latest Contact Info) Description 02/02/2025 Travel Social History Tobacco Use Types Packs/Day [...] documented as of this encounter Care Teams Ostrich Farmer Relationship Specialty Start Date End Date Edson Pendleton MD [address] [place] [id number] PCP - General 10/21/23 Sal Mar MD [address] [place] [address] Medical Oncologist Hematology and Oncology 10/16/23 documented as of this encounter
--- OUTSIDE RECORDS SUMMARY | 2025-03-01 12:37 | XMS_ITS | Encounter Summary ---
Author Organization [facility] Address [address] [place] [address] Care Team Providers Care International Marketing Manager Name Role Phone System, Provider Not In MD Primary Care Provider Unavailable Sal Mar MD Unavailable [phone] Edson Pendleton MD Primary Care Provider [phone] Encounter Details Date Type Department Care Team (Late st Contact Info) Description 01/08/2022 Orders Only [facility] @ [facility] [address] [place] [address] Fidel Vasquez MD [address] [place], [place] [id number] Social History Tobacco Use Types Packs/Day Years [...] EDT) EXTERNAL GI PANEL SEE BELOW [facility] External Campylobacter species by PCR Negative Negative [facility] External Clostridioides (Clostridium) Difficile Toxin Negative Negative [facility] External Plesiomonas shigelloides Negative Negative [facility] EXTERNAL SALMONELLA SPP Negative Negative [facility] External Vibrio Negative Negative [facility] External Vibrio cholerae Negative Negative [facility] EXTERNAL YERSINIA SPECIES Negative Negative [facility] External Enteroaggregative E. Coli Negative Negative [facility] External Enteropathogenic E. coli Negative Negative [facility] External Enterotoxigenic E. coli LT/ST Negative Negative [facility] External Kdroc-Zlpft-Egtnovhx g E. coli Negative Negative [facility] External Shigella/Enteroinvas sadiq E. coli Negative Negative [facility] EXTERNAL CRYPTOSPORIDIUM SPECIES Negative Negative [facility] External Cyclospora cayetanensis Negative Negative [facility] External Entamoeba histolytica Negative Negative [facility] External Giardia lamblia Negative Negative [facility] External Adenovirus F 40/41 Negative Negative [facility] External Astrovirus Negative Negative [facility] EXTERNAL NOROVIRUS GI/GII Negative Negative [facility] External Rotavirus Negative Negative L [facility] External Sapovirus Negative Negative L [facility] Comment: ADDITIONAL INFORMATION This assay is performed using the FDA-cleared FilmArray GI Panel ([employer] TEST PERFORMED AT: [facility] [address] [place] [id number] SAL HARRIS II, MD,PHD 01/08/2022 12:3 8 PM EDT 01/08/2022 12:45 PM EDT us Fidel Vasquez MD LAB MICROBIOLOGY - GENERAL O RDERABLES Final Result [facility] [address] [place] [address], documented in this encounter Visit Diagnoses Not on filedocumented in this encounter Care Teams International Marketing Manager Relationship Specialty Start Date End Date System, Provider Not In, MD [address] [place] [address] PCP - General Family Medicine 07/15/21 10/20/23 Edson Pendleton MD 1210 [facility] [address] [place] [address] PCP - General 10/21/23 Sal Mar MD [address] [place] [address] Medical Oncologist Hematology and Oncology 10/16/23 documented as of this encounter
--- OUTSIDE RECORDS SUMMARY | 2025-03-01 12:37 | XMS_ITS | Encounter Summary ---
Author Organization [facility] Address [address] [place] [address] Care Team Providers Care Graphic Arts Instructor Name Role Phone System, Provider Not In MD Primary Care Provider Unavailable Sal Mar MD Unavailable [phone] Edson Pendleton MD Primary Care Provider [phone] Encounter Details Date Type Department Care Team (Late st Contact Info) Description 01/03/2022 Orders Only [facility] @ [facility] [address] [place] [address] Fidel Vasquez MD [address] [place], [place] [id number] Social History Tobacco Use Types Packs/Day Years [...] Vitamin B12 >2,000(H) 232 - 1,245 pg/mL [facility] 01/03/2022 4:15 PM EDT 01/03/2022 5:14 PM EDT Fidel Vasquez MD LAB BLOOD ORDERABLES Final R esult [facility] [address] [place] [address], documented in this encounter Visit Diagnoses Not on filedocumented in this encounter Care Teams Graphic Arts Instructor Relationship Specialty Start Date End Date System, Provider Not In, [address] [place] [address] PCP - General Family Medicine 07/15/21 10/20/23 Edson Pendleton MD [address] [place] [address] PCP - General 10/21/23 Sal Mar MD [address] [place] [address] Medical Oncologist Hematology and Oncology 10/16/23 documented as of this encounter
--- OUTSIDE RECORDS SUMMARY | 2025-03-01 12:37 | XMS_ITS | Encounter Summary ---
Author Organization [facility] Address [address] [place] [address] Care Team Providers Care Dobie Worker Name Role Phone System, Provider Not In MD Primary Care Provider Unavailable Sal Mar MD Unavailable [phone] Edson Pendleton MD Primary Care Provider [phone] Encounter Details Date Type Department Care Team (Late st Contact Info) Description 01/08/2022 Orders Only [facility] @ [facility] [address] [place] [address] Fidel Vasquez MD [address] [place], [place] [id number] Social History Tobacco Use Types Packs/Day Years [...] 12:38 PM EDT) External Calprotectin 30 mcg/g [facility] Comment: Reference Range: <50 Normal 50-120 Borderline >120 Elevated Calprotectin in Crohn's disease and ulcerative colitis can be five to several thousand times above the reference population (50 mcg/g or less). Levels are usually 50 mcg/g or less in healthy patients and with irritable bowel syndrome. Repeat testing in 4-6 weeks is suggested for borderline values. TEST PERFORMED AT: [employer] [facility] [place] [address] [place] [address] LI CALERO MD,PHD,SEBLE 01/08/2022 12:3 8 PM EDT 01/08/2022 12:45 PM EDT Fidel Vasquez MD LAB BODY FLUIDS AND STOOLS O RDERABLES Final Result Performing Organization Address City/State/[facility] Co de Phone Number [facility] [address] [place] [address], documented in this encounter Visit Diagnoses Not on filedocumented in this encounter Care Teams Dobie Worker Relationship Specialty Start Date End Date System, Provider Not In, [address] [place] [address] PCP - General Family Medicine 07/15/21 10/20/23 Edson Pendleton MD [address] [facility] [address] [place] [address] PCP - General 10/21/23 Sal Mar MD [address] [place] [address] Medical Oncologist Hematology and Oncology 10/16/23 documented as of this encounter
--- OUTSIDE RECORDS SUMMARY | 2025-03-01 12:37 | XMS_ITS | Encounter Summary ---
Author Organization [facility] Address [address] [place] [address] Care Team Providers Care Warehouse Checker Name Role Phone System, Provider Not In MD Primary Care Provider Unavailable Sal Mar MD Unavailable [phone] Edson Pendleton MD Primary Care Provider [phone] Encounter Details Date Type Department Care Team (Late st Contact Info) Description 01/03/2022 Orders Only [facility] @ [facility] [address] [place] [address] Fidel Vasquez MD [address] [place], [place] [address] Social History Tobacco Use Types Packs/Day Years [...] External WBC 4.1 3.8 - 10.8 K/uL [facility] External Red Blood Cell (RBC) 3.72(L) 3.80 - 5.20 M/uL [facility] External Hemoglobin 11.6(L) 12.0 - 16.0 G/DL [facility] External Hematocrit 33.4(L) 35.0 - 47.0 % [facility] External MCV 90 80 - 100 fL [facility] External MCH 31 26 - 35 PG [facility] External MCHC 35 32 - 36 G/DL [facility] External RDW 15.9(H) 11.0 - 15.0 % [facility] External Mean Platelet Volume 7.5 6.2 - 10.5 fL [facility] External Platelets 223 130 - 400 K/uL [facility] External Neutrophil# 3.0 1.6 - 8.4 K/uL [facility] External Lymphocyte# 0.7 0.4 - 5.1 K/uL [facility] External Absolute Monocyte (Abs [place]) 0.3 0.0 - 1.2 K/uL [facility] External Eosinophils# 0.1 0.0 - 0.8 K/uL [facility] External Baso# 0.0 0.0 - 0.3 K/uL [facility] External Neutrophils % 71.7 42.0 - 78.0 % [facility] External Lymphocyte % 16.1 11.0 - 47.0 % [facility] External Monocyte % 7.9 0.0 - 11.0 % [facility] External Eosinophil% 3.3 0.0 - 7.0 % [facility] External Basophil % 1.0 0.0 - 3.0 % [facility] External Nucleated RBC%-Auto 0.1 0.0 - 0.9 % [facility] External Nucleated RBC Absolute 0.00 Not Estab. K/uL [facility] 01/03/2022 4:15 PM EDT 01/03/2022 5:14 PM EDT us Fidel Vasquez MD LAB BLOOD ORDERABLES Final R esult [facility] [address] [place] [id number], documented in this encounter Visit Diagnoses Not on filedocumented in this encounter Care Teams Warehouse Checker Relationship Specialty Start Date End Date System, Provider Not In, [address] [place] [address] PCP - General Family Medicine 07/15/21 10/20/23 Edson Pendleton MD [address] [place] [address] PCP - General 10/21/23 Sal Mar MD [address] [place] [address] Medical Oncologist Hematology and Oncology 10/16/23 documented as of this encounter
--- OUTSIDE RECORDS SUMMARY | 2025-03-01 12:37 | XMS_ITS | Encounter Summary ---
Author Organization [facility] Address [address] [place] [address] Care Team Providers Care Banquet Houseperson Name Role Phone System, Provider Not In MD Primary Care Provider Unavailable Sal Mar MD Unavailable [phone] Edson Pendleton MD Primary Care Provider [phone] Encounter Details Date Type Department Care Team (Late st Contact Info) Description 01/03/2022 Orders Only [facility] @ [facility] [address] [place] [address] Fidel Vasquez MD [address] [place], [place] [phone] Social History Tobacco Use Types Packs/Day Years [...] 6-TGN 212(L) 235 - 400 pmol/8x10( 8)RBC [facility] Comment: This test was developed and its analytical performance characteristics have been determined by [employer]. It has not been cleared or approved by the FDA. This assay has been validated pursuant to the CLIA regulations and is used for clinical purposes. EXTERNAL 6-MMPN <500 <5700 pmol/8x10( 8)RBC [facility] Comment: These results are useful in [...] analytical performance characteristics have been determined by [employer]. It has not been cleared or approved by the FDA. This assay has been validated pursuant to the CLIA regulations and is used for clinical purposes. TEST PERFORMED AT: [email or web address] [address] [address] MICHAELA FRANCIS MD 01/03/2022 4:15 PM EDT 01/03/2022 5:15 PM EDT us Fidel Vasquez MD LAB BLOOD ORDERABLES Final R esult [facility] [address] [place] [address], documented in this encounter Visit Diagnoses Not on filedocumented in this encounter Care Teams Banquet Houseperson Relationship Specialty Start Date End Date System, Provider Not In, [address] [place] [address] PCP - General Family Medicine 07/15/21 10/20/23 Edson Pendleton MD [address] [place] [address] PCP - General 10/21/23 Sal Mar MD [address] [place] [address] Medical Oncologist Hematology and Oncology 10/16/23 documented as of this encounter
--- OUTSIDE RECORDS SUMMARY | 2025-03-01 12:37 | XMS_ITS | Encounter Summary ---
Author Organization [facility] Address [address] [place] [address] Care Team Providers Care Mate Fourth Name Role Phone Sal Mar MD Unavailable [phone] Edson Pendleton MD Primary Care Provider [phone] Encounter Details Date Type Department Care Team (Latest Contact Info) Description 01/28/2025 Travel Social History Tobacco Use Types Packs/Day [...] documented as of this encounter Care Teams Mate Fourth Relationship Specialty Start Date End Date Edson Pendleton MD [address] [place] [id number] PCP - General 10/21/23 Sal Mar MD [address] [place] [id number] Medical Oncologist Hematology and Oncology 10/16/23 documented as of this encounter
--- OUTSIDE RECORDS SUMMARY | 2025-03-01 12:38 | XMS_ITS | Encounter Summary ---
Author Organization [facility] Address [address] [place] [address] Care Team Providers Care Strapping Machine Tender Name Role Phone System, Provider Not In MD Primary Care Provider Unavailable Sal Mar MD Unavailable [phone] Edson Pendleton MD Primary Care Provider [phone] Encounter Details Date Type Department Care Team (Late st Contact Info) Description 08/10/2021 Orders Only [facility] [address] [place] [address] Fidel Vasquez MD [address] [place], [place] [id number] Social History Tobacco Use Types Packs/Day Years [...] External WBC 5.0 3.8 - 10.8 K/uL [facility] External Red Blood Cell (RBC) 3.57(L) 3.80 - 5.20 M/uL [facility] External Hemoglobin 10.7(L) 12.0 - 16.0 G/DL [facility] External Hematocrit 31.8(L) 35.0 - 47.0 % [facility] External MCV 89 80 - 100 fL [facility] External MCH 30 26 - [address] [facility] External MCHC 34 32 - 36 G/DL [facility] External RDW 15.3(H) 11.0 - 15.0 % [facility] External Mean Platelet Volume 8.0 6.2 - 10.5 fL [facility] External Platelets 278 130 - 400 K/uL [facility] External Neutrophil# 3.6 1.6 - 8.4 K/uL [facility] External Lymphocyte# 0.8 0.4 - 5.1 K/uL [facility] External Absolute Monocyte (Abs [place]) 0.4 0.0 - 1.2 K/uL [facility] External Eosinophils# 0.1 0.0 - 0.8 K/uL [facility] External Baso# 0.1 0.0 - 0.3 K/uL [facility] External Neutrophils % 72.9 42.0 - 78.0 % [facility] External Lymphocyte % 15.6 11.0 - 47.0 % [facility] External Monocyte % 8.0 0.0 - 11.0 % [facility] External Eosinophil% 2.4 0.0 - 7.0 % [facility] External Basophil % 1.1 0.0 - 3.0 % [facility] External Nucleated RBC%-Auto 0.0 0.0 - 0.9 % [facility] External Nucleated RBC Absolute 0.00 Not Estab. K/uL [facility] 08/10/2021 2:45 PM EST 08/10/2021 7:49 PM EST us Fidel Vasquez MD LAB BLOOD ORDERABLES Final R esult [facility] [address] [place] [address], documented in this encounter Visit Diagnoses Not on filedocumented in this encounter Care Teams Strapping Machine Tender Relationship Specialty Start Date End Date System, Provider Not In, [address] [place] [address] PCP - General Family Medicine 07/15/21 10/20/23 Edson Pendleton MD [address] [place] [address] PCP - General 10/21/23 Sal Mar MD [address] [place] [address] Medical Oncologist Hematology and Oncology 10/16/23 documented as of this encounter
--- OUTSIDE RECORDS SUMMARY | 2025-03-01 12:38 | XMS_ITS | Encounter Summary ---
Author Organization [facility] Address [address] [place] [address] Care Team Providers Care Mri Supervisor Name Role Phone System, Provider Not In MD Primary Care Provider Unavailable Sal Mar MD Unavailable [phone] Edson Pendleton MD Primary Care Provider [phone] Encounter Details Date Type Department Care Team (Late st Contact Info) Description 08/10/2021 Orders Only [facility] @ [facility] [address] [place] [address] Fidel Vasquez MD [address] [place], [place] [id number] Social History Tobacco Use Types Packs/Day Years [...] External Ferritin 6(L) 13 - 157 ng/mL [facility] 08/10/2021 2:45 PM EST 08/10/2021 7:55 PM EST Fidel Vasquze MD LAB BLOOD ORDERABLES Final R esult [facility] [address] [place] [address], documented in this encounter Visit Diagnoses Not on filedocumented in this encounter Care Teams Mri Supervisor Relationship Specialty Start Date End Date System, Provider Not In, [address] [place] [address] PCP - General Family Medicine 07/15/21 10/20/23 Edson Pendleton MD [address] [place] [address] [address] [place] [address] PCP - General 10/21/23 Sal Mar MD [address] [place] [id number] Medical Oncologist Hematology and Oncology 10/16/23 documented as of this encounter
--- OUTSIDE RECORDS SUMMARY | 2025-03-01 12:38 | XMS_ITS | Encounter Summary ---
Author Organization [facility] Address [address] [place] [address] Care Team Providers Care Weave Defect Charting Clerk Name Role Phone System, Provider Not In MD Primary Care Provider Unavailable Sal Mar MD Unavailable [phone] Edson Pendleton MD Primary Care Provider [phone] Encounter Details Date Type Department Care Team (Late st Contact Info) Description 08/10/2021 Orders Only [facility] @ [facility] [address] [place] [address] Fidel Vasquez MD [address] [place], [place] [id number] Social History Tobacco Use Types Packs/Day Years [...] External Iron 65 37 - 145 ug/dL [facility] External Total Iron Binding Capacity 555(H) 250 - 450 ug/dL (calc) [facility] External Unsaturated Iron Binding Capacity 490(H) 112 - 347 ug/dL [facility] External Iron-Saturation% 12(L) 15 - 50 % (calc) [facility] 08/10/2021 2:45 PM EST 08/10/2021 7:55 PM EST us Fidel Vasquez MD LAB BLOOD ORDERABLES Final R esult [facility] [address] [place] [address], documented in this encounter Visit Diagnoses Not on filedocumented in this encounter Care Teams Weave Defect Charting Clerk Relationship Specialty Start Date End Date System, Provider Not In, [address] [place] [address] PCP - General Family Medicine 07/15/21 10/20/23 Edson Pendleton MD [address] [place] [address] PCP - General 10/21/23 Sal Mar MD [address] [place] [id number] Medical Oncologist Hematology and Oncology 10/16/23 documented as of this encounter
--- OUTSIDE RECORDS SUMMARY | 2025-03-01 12:38 | XMS_ITS | Encounter Summary ---
Author Organization [facility] Address [address] [place] [address] Care Team Providers Care Corporate Safety Manager Name Role Phone System, Provider Not In MD Primary Care Provider Unavailable Sal Mar MD Unavailable [phone] Edson Pendleton MD Primary Care Provider [phone] Encounter Details Date Type Department Care Team (Late st Contact Info) Description 11/09/2021 Orders Only [facility] [address] [place] [address] Sal Mar MD [address] [address] Social History Tobacco Use Types [...] External Glucose 89 74 - 100 mg/dL [facility] External BUN 17 6 - 20 mg/dL [facility] External Creatinine Blood 1.47(H) 0.50 - 0.95 mg/dL [facility] External BUN/Creat Ratio 12 10 - 20 (calc) [facility] External Sodium 141 136 - 145 mmol/L [facility] External Potassium 3.7 3.4 - 5.0 mmol/L [facility] External Chloride 105 98 - 107 mmol/L [facility] External Carbon Dioxide 24 22 - 31 mmol/L [facility] External Anion Gap (AG) 12 7 - 25 (calc) [facility] External Calcium 8.9 8.6 - 10.2 mg/dL [facility] External Total Protein 6.5 6.4 - 8.3 g/dL [facility] External Albumin 4.3 3.5 - 5.2 g/dL [facility] External Globulin 2.2 1.5 - 4.5 g/dL (calc) [facility] External Albumin/Globulin Ratio 2.0 1.1 - 2.5 (calc) [facility] External Bilirubin Total 0.2 0.1 - 1.2 mg/dL [facility] External Alkaline Phosphatase 57 30 - 121 U/L [facility] External AST (SGOT) 27 0 - 32 U/L [facility] External ALT (SGPT) 17 0 - 33 U/L [facility] External EGFR (If AFR/AM) 38(A) >=60 [facility] External Estimated GFR 33(A) >=60 [facility] Comment: NOTE Chronic kidney disease [...] MD LAB BLOOD ORDERABLES Final Res ult [facility] [address] [place] [address], documented in this encounter Visit Diagnoses Not on filedocumented in this encounter Care Teams Corporate Safety Manager Relationship Specialty Start Date End Date System, Provider Not In, [address] [place] [address] PCP - General Family Medicine 07/15/21 10/20/23 Edson Pendleton MD [address] [facility] [address] [place] [id number] PCP - General 10/21/23 Sal Mar MD [address] [place] [address] Medical Oncologist Hematology and Oncology 10/16/23 documented as of this encounter
--- OUTSIDE RECORDS SUMMARY | 2025-03-01 12:38 | XMS_ITS | Encounter Summary ---
Author Organization [facility] Address [address] [place] [address] Care Team Providers Care Community Living Coach Name Role Phone Sla Mar MD Unavailable [phone] Edson Pendleton MD Primary Care Provider [phone] Encounter Details Date Type Department Care Team (Latest Contact Info) Description 02/04/2025 Travel Social History Tobacco Use Types Packs/Day [...] documented as of this encounter Care Teams Community Living Coach Relationship Specialty Start Date End Date Edson Pendleton MD [address] [place] [address] PCP - General 10/21/23 Sal Mar MD [address] [place] [address] Medical Oncologist Hematology and Oncology 10/16/23 documented as of this encounter
--- OUTSIDE RECORDS SUMMARY | 2025-03-01 12:38 | XMS_ITS | Encounter Summary ---
Author Organization [facility] Address [address] [place] [address] Care Team Providers Care Caustic Strength Inspector Name Role Phone System, Provider Not In MD Primary Care Provider Unavailable Sal Mar MD Unavailable [phone] Edson Pendleton MD Primary Care Provider [phone] Encounter Details Date Type Department Care Team (Late st Contact Info) Description 11/09/2021 Orders Only [facility] [address] [place] [address] Sal Mar MD [address] [phone] Social History Tobacco Use Types Packs/Day Years [...] External WBC 3.9 3.8 - 10.8 K/uL [facility] External Red Blood Cell (RBC) 3.18(L) 3.80 - 5.20 M/uL [facility] External Hemoglobin 9.5(L) 12.0 - 16.0 G/DL [facility] External Hematocrit 27.0(L) 35.0 - 47.0 % [facility] External MCV 85 80 - 100 fL [facility] External MCH 30 26 - 35 PG [facility] External MCHC 35 32 - 36 G/DL [facility] External RDW 15.0 11.0 - 15.0 % [facility] External Mean Platelet Volume 7.2 6.2 - 10.5 fL [facility] External Platelets 228 130 - 400 K/uL [facility] External Neutrophil# 2.9 1.6 - 8.4 K/uL [facility] External Lymphocyte# 0.6 0.4 - 5.1 K/uL [facility] External Absolute Monocyte (Abs [place]) 0.3 0.0 - 1.2 K/uL [facility] External Eosinophils# 0.1 0.0 - 0.8 K/uL [facility] External Baso# 0.0 0.0 - 0.3 K/uL [facility] External Neutrophils % 73.4 42.0 - 78.0 % [facility] External Lymphocyte % 16.4 11.0 - 47.0 % [facility] External Monocyte % 6.8 0.0 - 11.0 % [facility] External Eosinophil% 2.3 0.0 - 7.0 % [facility] External Basophil % 1.1 0.0 - 3.0 % [facility] External Nucleated RBC%-Auto 0.1 0.0 - 0.9 % [facility] External Nucleated RBC Absolute 0.00 Not Estab. K/uL [facility] 11/09/2021 3:53 PM EDT 11/09/2021 6:01 PM EDT us Sal Mar MD LAB BLOOD ORDERABLES Final Res ult [facility] [address] [place] [address], documented in this encounter Visit Diagnoses Not on filedocumented in this encounter Care Teams Caustic Strength Inspector Relationship Specialty Start Date End Date System, Provider Not In, [address] [place] [address] PCP - General Family Medicine 07/15/21 10/20/23 Edson Pendleton MD [address] [place] [address] PCP - General 10/21/23 Sal Mar MD [address] [place] [address] Medical Oncologist Hematology and Oncology 10/16/23 documented as of this encounter
--- OUTSIDE RECORDS SUMMARY | 2025-03-01 12:38 | XMS_ITS | Encounter Summary ---
Author Organization [facility] Address [address] [place] [address] Care Team Providers Care Rn Internal Medicine Name Role Phone System, Provider Not In MD Primary Care Provider Unavailable Sal Mar MD Unavailable [phone] Edson Pendleton MD Primary Care Provider [phone] Encounter Details Date Type Department Care Team (Late st Contact Info) Description 08/10/2021 Orders Only [facility] [address] [place] [address] Fidel Vasquez MD [address] [place], [place] [phone] Social History Tobacco Use Types Packs/Day Years [...] Time (PT) 9.6 9.0 - 11.4 SECONDS [facility] External INR - Internormal Ratio 0.9(L) 2.0 - 3.0 [facility] Comment: INR OF 2.0 TO [...] MD LAB BLOOD ORDERABLES Final R esult [facility] [address] [place] [address], documented in this encounter Visit Diagnoses Not on filedocumented in this encounter Care Teams Rn Internal Medicine Relationship Specialty Start Date End Date System, Provider Not In, [address] [place] [address] PCP - General Family Medicine 07/15/21 10/20/23 Edson Pendleton MD [address] [place] [address] PCP - General 10/21/23 Sal Mar MD [address] [place] [address] Medical Oncologist Hematology and Oncology 10/16/23 documented as of this encounter
--- OUTSIDE RECORDS SUMMARY | 2025-03-01 12:38 | XMS_ITS | Encounter Summary ---
Author Organization [facility] Address [address] [place] [address] Care Team Providers Care Photoengraving Supervisor Name Role Phone System, Provider Not In MD Primary Care Provider Unavailable Sal Mar MD Unavailable [phone] Edson Pendleton MD Primary Care Provider [phone] Encounter Details Date Type Department Care Team (Late st Contact Info) Description 11/09/2021 Orders Only [facility] [address] [place] [address] Sal Mar MD [address] [phone] Social History Tobacco Use Types Packs/Day Years [...] External Ferritin 9(L) 13 - 157 ng/mL [facility] 11/09/2021 3:53 PM EDT 11/09/2021 6:04 PM EDT Sal Mar MD LAB BLOOD ORDERABLES Final Res ult [facility] [address] [place] [address], documented in this encounter Visit Diagnoses Not on filedocumented in this encounter Care Teams Photoengraving Supervisor Relationship Specialty Start Date End Date System, Provider Not In, [address] [place] [address] PCP - General Family Medicine 07/15/21 10/20/23 Edson Pendleton MD [address] [place] [address] PCP - General 10/21/23 Sal Mar MD [address] [place] [address] Medical Oncologist Hematology and Oncology 10/16/23 documented as of this encounter
--- OUTSIDE RECORDS SUMMARY | 2025-03-01 12:38 | XMS_ITS | Encounter Summary ---
Author Organization [facility] Address [address] [place] [address] Care Team Providers Care Door Manager Name Role Phone System, Provider Not In MD Primary Care Provider Unavailable Sal Mar MD Unavailable [phone] Edson Pendleton MD Primary Care Provider [phone] Encounter Details Date Type Department Care Team (Late st Contact Info) Description 11/09/2021 Orders Only [facility] [address] [place] [address] Sal Mar MD [address] [address] Social History Tobacco Use Types [...] External Iron 32(L) 37 - 145 ug/dL [facility] External Total Iron Binding Capacity 524(H) 250 - 450 ug/dL (calc) [facility] External Unsaturated Iron Binding Capacity 492(H) 112 - 347 ug/dL [facility] External Iron-Saturation% 6(L) 15 - 50 % (calc) [facility] 11/09/2021 3:53 PM EDT 11/09/2021 6:04 PM EDT us Sal Mar MD LAB BLOOD ORDERABLES Final Res ult [facility] [address] [place] [address], documented in this encounter Visit Diagnoses Not on filedocumented in this encounter Care Teams Door Manager Relationship Specialty Start Date End Date System, Provider Not In, [address] [place] [address] PCP - General Family Medicine 07/15/21 10/20/23 Edson Pendleton MD [address] [place] [address] PCP - General 10/21/23 Sal Mar MD [address] [place] [id number] Medical Oncologist Hematology and Oncology 10/16/23 documented as of this encounter
--- OUTSIDE RECORDS SUMMARY | 2025-03-01 12:39 | XMS_ITS | Clinical Summary ---
Author Organization [facility] Address [address] [place] [address] Care Team Providers Care Healthcare Consultant Name Role Phone Sal Mar MD Unavailable [phone] Edson Pendleton MD Primary Care Provider [phone] Allergies Active Allergy Reactions Criticality Noted Date [...] Active Multiple Vitamins-Minera ls (PRESERVISION AREDS PO) Take 1 capsule by mouth 2 times a day. Active potassium chloride CR (KLOR-CON) 20 MEQ ER tablet 2 (two) times a day. Active fenofibrate (Tricor) 48 MG tablet Take 1 tablet by mouth daily. 09/18/2023 Active fenofibrate (Tricor) 145 MG tablet 1 (one) time each day. Active Imuran 50 MG tablet 1 (one) time each day. 10/16/2022 Active Xanax 0.5 MG tablet Take 1 tablet by mouth daily as needed. Active acetaminophen (Tylenol) 325 MG tablet if needed. Active amLODIPine (Norvasc) 10 MG tablet Take 1 tablet by mouth daily. Active Active Problems Problem Noted Date Diagnosed Date Iron deficiency 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 blood loss 10/23/2023 Crohn's disease of colon with complication 10/22 Chronic kidney disease 10/23/2023 Encounters Date Type Department Care Team Description 02/16/2025 2:00 PM EDT Infusion [facility] at [facility] [address] [place] [address] Iron deficiency 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 blood loss (Primary Dx); Crohn's disease of colon with complication (CMS/HCC); Stage 3 chronic kidney disease, unspecified whether stage 3a or 3b CKD (CMS/HCC) 02/16/2025 Travel 02/04/2025 2:00 PM EDT Infusion [facility] at [facility] [address] [place] [address] Iron deficiency 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 blood loss (Primary Dx); Stage 3 chronic kidney disease, unspecified whether stage 3a or 3b CKD (CMS/HCC); Crohn's disease of colon with complication (CMS/HCC) 02/04/2025 Travel 02/02/2025 Travel 01/28/2025 1:45 PM EDT Office Visit [facility] [address] [place] [address] Sal Mar MD Iron deficiency 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 blood loss (Primary Dx); Crohn's disease of colon with complication (CMS/HCC); Stage 3 chronic kidney disease, unspecified whether stage 3a or 3b CKD (CMS/HCC) 01/28/2025 Orders Only [facility] at [facility] [address] [place] [address] Carrie Chavira, PharmD 01/28/2025 Travel 01/21/2025 Telephone [facility] at [address] [address] Sal Mar MD Requesting Appt from Last 3 Months Immunizations Immunization Administration Dates Next Due Influenza, High-dose, Split Virus, Trivalent, Injectable, preservative free 04/07/2020,06/01/2019,04/15/2018,04/19 Influenza, high-dose, quadrivalent 04/15,05/03/2023,05/22/2022,04/28,04/14/2020,05/14/2016,04/20/2013 Influenza, injectable, quadrivalent 05/15/2021,1 ,06/13/2009 Influenza, seasonal, injectable 05/22/20 12,05/22/2011,05/02/2010,06/13,05/10/2008,05/22/2007,05/24/2006 ,05/21/2005 Moderna COVID-19 Vaccine (Re d Cap) 12+ years 03/15/2021 Pneumococcal 20-marianela Conj Vaccine 05/07/2023 Pneumococcal Conjugate PCV 13 05/14/2016 Pneumococcal Polysaccharide PPV23 05/31/2018, Pneumococcal, Unspecified 07/15/2018 Rsv, Bivalent, Protein Subun it Rsvpref, Diluent Reconstituted, 0.5mL, PF 04/22/2024 Rsvpref, Recombinant, Protei n Subunit, Adjuvent 07/03/2023 Family History Medical History Relation Name Comments Cancer Mother Hypertension Mother Stroke Mother Cancer Sister Relation Name Status Comments Mother Sister Social History Tobacco Use Types Packs/Day Years Used Date Smoking Tobacco: Former Cigarettes Q uit: 1976 Smokeless Tobacco: Never Tobacco Cessation:Counseling Given: Not [...] Pulse 78 02/16/2025 2:00 PM EDT Temperature 36.7 C (98 F) 02/04/2025 2:28 PM EDT Respiratory Rate 16 02/04/2025 2:28 PM EDT Oxygen Saturation 97% 02/16/2025 2:00 PM EDT Inhaled Oxygen Concentration - - Weight 56.4 kg (124 lb 5.4 oz) 02/16/2025 2:00 P M EDT Height 160 cm (5' 3 ) 02/16/2025 2:00 PM EDT Body Mass Index 22.03 02/16/2025 2:00 PM EDT Plan of Treatment Health Maintenance Due Date Last Done Comments [facility]-Depression Screening 1938 [facility]-Medicare Annual Wellness (AWV) 1938 [facility]-Infant/Child/Adol SDOH Screenings 1938 [facility]- SDOH Screenings 1956 [facility]-Adult SDOH Screenings 1956 [facility]-DTaP,Tdap,and Td Vaccines (1 - Tdap) 1957 [facility]-Zoster Vaccines (1 of 2) 1957 [facility]-Bone Density Scan 05/13/2022 05/13/2020 , 05/13/2020, 06/21/2017, Additional history exists [id number] Vaccine (9 - Moderna risk 2023- season) 2024 04/22/2024, 07/03/2023, 05/30/2022, Additional history exists [facility]-Influenza Vaccine (#1) 03/15/202504/15, 05/03/2023, 05/22/2022, Additional history exists [facility]-Pneumococcal Vaccine: 50+ Years Completed 05/07/2023, 07/15/2018, 05/31/2018, Additional history exists [facility]-RSV Vaccine: 60+ Years or Completed 04/22/2024, 07/03/2023 HPV Vaccines Aged Out No longer [...] Priority Date/Time Associated Diagnosis Comments FERRITIN, SERUM STAT 01/25/2025 3:06 PM EDT Iron deficiency 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 blood loss IRON & TOTAL IRON BINDING CAPACITY, PLASMA (INCLUDES TRANSFERRIN) STAT 01/25/2025 3:06 PM EDT Iron deficiency 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 blood loss COMPREHENSIVE METABOLIC PANEL, PLASMA STAT 01/25/2025 3:06 PM EDT Iron deficiency 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 blood loss CBC WITH AUTO DIFFERENTIAL STAT 01/25/2025 3:06 PM EDT Iron deficiency 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 blood loss from Last 3 Months Results * (ABNORMAL) Iron & Total Iron Binding Capacity, Plasma (Includes Transferrin) (01/25/2025 3:06 PM EDT) External Iron 45 37 - 145 ug/dL 01/25/2025 7:00 PM EDT [facility] External Total Iron Binding Capacity 498(H) 250 - 450 ug/dL (calc) 01/25/2025 7:00 PM EDT [facility] External Unsaturated Iron Binding Capacity 453(H) 112 - 347 ug/dL 01/25/2025 7:00 PM EDT [facility] External Iron-Saturation% 9(L) 15 - 50 % (calc) 01/25/2025 7:00 PM EDT [facility] Blood Venous blood specimen / Unknown 01/25/2025 3:06 PM EDT 01/25/2025 6:31 PM EDT Sal Mra MD LAB BLOOD ORDERABLES Final Res ult [facility] [address] [place] [address], * (ABNORMAL) CBC and Differential (01/25/2025 3:06 PM EDT) External WBC 4.8 3.8 - 10.8 10*3/uL 01/25/2025 6:35 PM EDT [facility] External Red Blood Cell (RBC) 3.13(L) 3.80 - 5.20 10*6/uL 01/25/2025 6:35 PM EDT [facility] External Hemoglobin 9.4(L) 12.0 - 16.0 g/dL 01/25/2025 6:35 PM EDT [facility] External Hematocrit 27.9(L) 35.0 - 47.0 % 01/25/2025 6:35 PM EDT [facility] External MCV 89 80 - 100 fL 01/25/2025 6:35 PM EDT [facility] External MCH 30 26 - 35 pg 01/25/2025 6:35 PM EDT [facility] External MCHC 34 32 - 36 g/dL 01/25/2025 6:35 PM EDT [facility] External RDW 14.2 11.0 - 15.0 % 01/25/2025 6:35 PM EDT [facility] External Mean Platelet Volume 7.6 6.2 - 10.5 fL 01/25/2025 6:35 PM EDT [facility] External Platelet Count (Plt) 328 150 - 400 10*3/uL 01/25/2025 6:35 PM EDT [facility] External Neutrophil# 3.5 1.6 - 8.4 10*3/uL 01/25/2025 6:35 PM EDT [facility] External Lymphocyte# 0.6 0.4 - 5.1 10*3/uL 01/25/2025 6:35 PM EDT [facility] External Absolute Monocyte (Abs [place]) 0.4 0.0 - 1.2 10*3/uL 01/25/2025 6:35 PM EDT [facility] External Eosinophils# 0.1 0.0 - 0.8 10*3/uL 01/25/2025 6:35 PM EDT [facility] External Baso# 0.1 0.0 - 0.3 10*3/uL 01/25/2025 6:35 PM EDT [facility] External Neutrophils % 73.6 42.0 - 78.0 % 01/25/2025 6:35 PM EDT [facility] External Lymphocyte % 13.2 11.0 - 47.0 % 01/25/2025 6:35 PM EDT [facility] External Monocyte % 9.2 0.0 - 11.0 % 01/25/2025 6:35 PM EDT [facility] External Eosinophil% 2.5 0.0 - 7.0 % 01/25/2025 6:35 PM EDT [facility] External Basophil % 1.5 0.0 - 3.0 % 01/25/2025 6:35 PM EDT [facility] External Nucleated RBC%-Auto 0.0 0.0 - 0.9 % 01/25/2025 6:35 PM EDT [facility] External Nucleated RBC Absolute 0.00 Not Estab. 10*3/uL 01/25/2025 6:35 PM EDT [facility] Blood Venous blood specimen / Unknown 01/25/2025 3:06 PM EDT 01/25/2025 6:32 PM EDT us Sal Mar MD LAB BLOOD ORDERABLES Final Res ult [facility] [place] [address], [place] [phone] * Ferritin, Serum (01/25/2025 3:06 PM EDT) External Ferritin 13 13 - 157 ng/mL 01/25/2025 7:00 PM EDT [facility] Blood Venous blood specimen / Unknown 01/25/2025 3:06 PM EDT 01/25/2025 6:31 PM EDT us Sal Mar MD LAB BLOOD ORDERABLES Final Res ult Performing Organization Address City/[facility]/ZIP Co de Phone Number [facility] [address] [place] [address], [place] [phone] * (ABNORMAL) Comprehensive Metabolic Panel, Plasma (01/25/2025 3:06 PM EDT) External Glucose 104(H) 74 - 100 mg/dL 01/25/2025 7:00 PM [facility] External BUN 21(H) 6 - 20 mg/dL 01/25/2025 7:00 PM [facility] External Creatinine Blood 1.47(H) 0.50 - 0.95 mg/dL 01/25/2025 7:00 PM [facility] External BUN/Creat Ratio 14 10 - 20 (calc) 01/25/2025 7:00 PM [facility] External Sodium 142 136 - 145 mmol/L 01/25/2025 7:00 PM [facility] External Potassium 4.2 3.4 - 5.0 mmol/L 01/25/2025 7:00 PM [facility] External Chloride 107 98 - 107 mmol/L 01/25/2025 7:00 PM [facility] External Carbon Dioxide (CO2) 23 22 - 31 mmol/L 01/25/2025 7:00 PM [facility] External Anion Gap (AG) 12 7 - 25 (calc) 01/25/2025 7:00 PM [facility] External Calcium 8.4(L) 8.6 - 10.2 mg/dL 01/25/2025 7:00 PM [facility] External Total Protein 6.3(L) 6.4 - 8.3 g/dL 01/25/2025 7:00 PM [facility] External Albumin 3.7 3.5 - 5.2 g/dL 01/25/2025 7:00 PM [facility] External Globulin 2.6 1.5 - 4.5 7:00 PM [facility] External Albumin/Globulin Ratio 1.4 1.1 - 2.5 (calc) 01/25/2025 7:00 PM [facility] External Bilirubin Total <0.2 0.1 - 1.2 mg/dL 01/25/2025 7:00 PM [facility] External Alkaline Phosphatase 72 30 - 121 U/L 01/25/2025 7:00 PM [facility] External AST (SGOT) 17 0 - 32 U/L 01/25/2025 7:00 PM EDT [facility] External ALT (SGPT) 10 0 - 33 U/L 01/25/2025 7:00 PM EDT [facility] External Estimated GFR 34(A) >=60 01/25/2025 7:00 PM EDT [facility] Comment: NOTE New calculation for GFR (CKD-EPI 2020) is formulated without race adjustment factors at the recommendation of the National Kidney Foundation and [place] Society of Nephrology. This calculation has not been validated in women. For pediatric patients refer to https://www.kidney.org/professionals/KDOQI/gfr_calculatorPed Blood Venous blood specimen / Unknown 01/25/2025 3:06 PM EDT 01/25/2025 6:31 PM EDT us Sal Mar MD LAB BLOOD ORDERABLES Final Res ult [facility] [address] [id number], from Last 3 Months Insurance MEDICARE [facility] Care Teams Healthcare Consultant Relationship Specialty Start Date End Date Edson Pendleton MD [address] [place] [id number] PCP - General 10/21/23 Sal Mar MD [address] [id number] Medical Oncologist Hematology and Oncology 10/16/23
--- OUTSIDE RECORDS SUMMARY | 2025-03-01 12:39 | XMS_ITS | Encounter Summary ---
Author Organization [facility] Address [address] [place] [address] Care Team Providers Care Clinical Informatics Director Name Role Phone System, Provider Not In MD Primary Care Provider Unavailable Sal Mar MD Unavailable [phone] Edson Pendleton MD Primary Care Provider [phone] Encounter Details Date Type Department Care Team (Late st Contact Info) Description 11/08/2022 Orders Only [facility] [address] [place] [address] Sal Mar MD [address] [address] Social History Tobacco Use Types [...] External Glucose 93 74 - 100 mg/dL [facility] External BUN 27(H) 6 - 20 mg/dL [facility] External Creatinine Blood 1.39(H) 0.50 - 0.95 mg/dL [facility] External BUN/Creat Ratio 19 10 - 20 (calc) [facility] External Sodium 141 136 - 145 mmol/L [facility] External Potassium 4.3 3.4 - 5.0 mmol/L [facility] External Chloride 105 98 - 107 mmol/L [facility] External Carbon Dioxide 24 22 - 31 mmol/L [facility] External Anion Gap (AG) 12 7 - 25 (calc) [facility] External Calcium 8.4(L) 8.6 - 10.2 mg/dL [facility] External Total Protein 5.9(L) 6.4 - 8.3 g/dL [facility] External Albumin 3.7 3.5 - 5.2 g/dL [facility] External Globulin 2.2 1.5 - 4.5 g/dL (calc) [facility] External Albumin/Globulin Ratio 1.7 1.1 - 2.5 (calc) [facility] External Bilirubin Total 0.2 0.1 - 1.2 mg/dL [facility] External Alkaline Phosphatase 45 30 - 121 U/L [facility] External AST (SGOT) 16 0 - 32 U/L [facility] External ALT (SGPT) 11 0 - 33 U/L [facility] External Estimated GFR 37(A) >=60 [facility] Comment: NOTE New calculation for GFR (CKD-EPI 2020) is formulated without race adjustment factors at the recommendation of the National Kidney Foundation and [place] Society of Nephrology. This calculation has not been validated in women. For pediatric patients refer to https://www.kidney.org/professionals/KDOQI/gfr_calculatorPed 11/08/2022 12:4 5 PM EDT 11/08/2022 12:54 PM EDT us Sal Mar MD LAB BLOOD ORDERABLES Final Res ult [facility] [address] [place] [address], documented in this encounter Visit Diagnoses Not on filedocumented in this encounter Care Teams Clinical Informatics Director Relationship Specialty Start Date End Date System, Provider Not In, [address] [place] [address] PCP - General Family Medicine 07/15/21 10/20/23 Edson Pendleton MD [address] [place] [address] PCP - General 10/21/23 Sal Mar MD [address] [place], [place] [id number] Medical Oncologist Hematology and Oncology 10/16/23 documented as of this encounter
--- OUTSIDE RECORDS SUMMARY | 2025-03-01 12:41 | XMS_ITS | Referral Summary ---
Author Organization [facility] ([place], [place], [place], [place]) Address [address] [place] [address] Care Team Providers Care Rehab Spec Name Role Phone Unavailable Primary Care Provider [...]
--- OUTSIDE RECORDS SUMMARY | 2025-03-01 12:41 | XMS_ITS | Encounter Summary ---
Author Organization [facility] Address [address] [place] [address] Care Team Providers Care Residential Leasing Agent Name Role Phone System, Provider Not In MD Primary Care Provider Unavailable Sal Mar MD Unavailable [phone] Edson Pendleton MD Primary Care Provider [phone]- [phone] Encounter Details Date Type Department Care Team (Late st Contact Info) Description 01/16/2022 Orders Only [facility] @ [facility] [address] [place] [address] Fidel Vasquez MD [address] [place], [place] [id number] Social History Tobacco Use Types Packs/Day Years [...] Exam (01/16/2022) External Surgical Pathology SEE BELOW [facility] Comment: Department of Pathology Surgical Pathology Report NAME:ALEJANDRA MALONE PATH.:[id number] Copy to: Diagnosis: A) Ileum biopsy: Small [...] ORDERABLES Fin al Result Performing Organization Address City/State[facility] Co de Phone Number [facility] [address] [place] [address], documented in this encounter Visit Diagnoses Not on filedocumented in this encounter Care Teams Residential Leasing Agent Relationship Specialty Start Date End Date System, Provider Not In, [facility] [place] [address] PCP - General Family Medicine 07/15/21 10/20/23 Edson Pendleton MD [address] [place] [address] PCP - General 10/21/23 Sal Mar MD [address] [place] [address] Medical Oncologist Hematology and Oncology 10/16/23 documented as of this encounter
--- OUTSIDE RECORDS SUMMARY | 2025-03-01 12:41 | XMS_ITS | Encounter Summary ---
Author Organization [facility] Address [address] [place] [address] Care Team Providers Care Corn Detasseler Machine Operator Name Role Phone System, Provider Not In MD Primary Care Provider Unavailable Sal Mar MD Unavailable [phone] Edson Pendleton MD Primary Care Provider [phone] Encounter Details Date Type Department Care Team (Late st Contact Info) Description 07/19/2022 Orders Only [facility] @ [facility] [address] [place] [address] Fidel Vasquez MD [address] [place], [place] [id number] Social History Tobacco Use Types Packs/Day Years [...] External Glucose 84 74 - 100 mg/dL [facility] External BUN 20 6 - 20 mg/dL [facility] External Creatinine Blood 1.18(H) 0.50 - 0.95 mg/dL [facility] External BUN/Creat Ratio 17 10 - 20 (calc) [facility] External Sodium 144 136 - 145 mmol/L [facility] External Potassium 4.2 3.4 - 5.0 mmol/L [facility] External Chloride 107 98 - 107 mmol/L [facility] External Carbon Dioxide 26 22 - 31 mmol/L [facility] External Anion Gap (AG) 11 7 - 25 (calc) [facility] External Calcium 9.2 8.6 - 10.2 mg/dL [facility] External Total Protein 6.6 6.4 - 8.3 g/dL [facility] External Albumin 4.2 3.5 - 5.2 g/dL [facility] External Globulin 2.4 1.5 - 4.5 g/dL (calc) [facility] External Albumin/Globulin Ratio 1.8 1.1 - 2.5 (calc) [facility] External Bilirubin Total 0.2 0.1 - 1.2 mg/dL [facility] External Alkaline Phosphatase 54 30 - 121 U/L [facility] External AST (SGOT) 20 0 - 32 U/L [facility] External ALT (SGPT) 12 0 - 33 U/L [facility] External Estimated GFR 46(A) >=60 [facility] Comment: NOTE New calculation for GFR (CKD-EPI 2020) is formulated without race adjustment factors at the recommendation of the National Kidney Foundation and [place] Society of Nephrology. This calculation has not been validated in women. For pediatric patients refer to https://www.kidney.org/professionals/KDOQI/gfr_calculatorPed 07/19/2022 3:24 PM EST 07/19/2022 3:56 PM EST us Fidel Vasquez MD LAB BLOOD ORDERABLES Final R esult [facility] [address] [place] [address], documented in this encounter Visit Diagnoses Not on filedocumented in this encounter Care Teams Corn Detasseler Machine Operator Relationship Specialty Start Date End Date System, Provider Not In, [address] [place] [address] PCP - General Family Medicine 07/15/21 10/20/23 Edson Pendleton MD [address] [place] [address] PCP - General 10/21/23 Sal Mar MD [address] [place] [address] Medical Oncologist Hematology and Oncology 10/16/23 documented as of this encounter
--- OUTSIDE RECORDS SUMMARY | 2025-03-01 12:41 | XMS_ITS | Encounter Summary ---
Author Organization [facility] Address [address] [place] [address] Care Team Providers Care Director Learning Name Role Phone System, Provider Not In MD Primary Care Provider Unavailable Sal Mar MD Unavailable Edson Pendleton MD Primary Care Provider [phone] Encounter Details Date Type Department Care Team (Late st Contact Info) Description 07/19/2022 Orders Only [facility] @ [facility] [address] [place] [address] Fidel Vasquez MD [address] [place], [place] [address] Social History Tobacco Use Types Packs/Day Years [...] External Iron 93 37 - 145 ug/dL [facility] External Total Iron Binding Capacity 507(H) 250 - 450 ug/dL (calc) [facility] External Unsaturated Iron Binding Capacity 414(H) 112 - 347 ug/dL [facility] External Iron-Saturation% 18 15 - 50 % (calc) [facility] 07/19/2022 3:24 PM EST 07/19/2022 3:56 PM EST us Fidel Vasquez MD LAB BLOOD ORDERABLES Final R esult [facility] [address] [place] [address], documented in this encounter Visit Diagnoses Not on filedocumented in this encounter Care Teams Director Learning Relationship Specialty Start Date End Date System, Provider Not In, [address] [place] [address] PCP - General Family Medicine 07/15/21 10/20/23 Edson Pendleton MD [address] [place] [address] PCP - General 10/21/23 Sal Mar MD [address] [place] [address] Medical Oncologist Hematology and Oncology 10/16/23 documented as of this encounter
--- OUTSIDE RECORDS SUMMARY | 2025-03-01 12:41 | XMS_ITS | Encounter Summary ---
Author Organization [facility] Address [address] [place] [address] Care Team Providers Care Wet Wheeler Name Role Phone System, Provider Not In MD Primary Care Provider Unavailable Sal Mar MD Unavailable [phone] Edson Pendleton MD Primary Care Provider [phone] Encounter Details Date Type Department Care Team (Late st Contact Info) Description 02/08/2022 Orders Only [facility] at [facility] [address] [place] [address] Sal Mar MD [address] [address] Social History Tobacco Use Types [...] External Iron 116 37 - 145 ug/dL [facility] External Total Iron Binding Capacity 419 250 - 450 ug/dL (calc) [facility] External Unsaturated Iron Binding Capacity 303 112 - 347 ug/dL [facility] External Iron-Saturation% 28 15 - 50 % (calc) [facility] 02/08/2022 2:16 PM EDT 02/08/2022 2:34 PM EDT us Sal Mar MD LAB BLOOD ORDERABLES Final Res ult [facility] [address] [place] [address], documented in this encounter Visit Diagnoses Not on filedocumented in this encounter Care Teams Wet Wheeler Relationship Specialty Start Date End Date System, Provider Not In, [address] [place] [address] PCP - General Family Medicine 07/15/21 10/20/23 Edson Pendleton MD [address] [place] [address] PCP - General 10/21/23 Sal Mar MD [address] [place], [place] [id number] Medical Oncologist Hematology and Oncology 10/16/23 documented as of this encounter
--- OUTSIDE RECORDS SUMMARY | 2025-03-01 12:41 | XMS_ITS | Clinical Summary ---
Author Organization [facility] [address] Address [address] [place] [address] Care Team Providers Care Laundry Manager Name Role Phone Provider, No Known Primary Care Provider Unavail able Social History Tobacco Use Types Packs/Day Years Used Date Smoking Tobacco: Never Assessed Abuse Screen Answer Date Recorded Unsafe at Home or Work/School Not on file Feels Threatened by Someone? Not on file 06/2023 Does Anyone Keep You from Co ntacting Others or Doint Things Outside the Home? Not on file 04/25/2023 Physical Sign of Abuse Present Not on file 1 Housing Stability Answer Date Recorded Current Living Arrangements Not on file 04/14 Potentially Unsafe Housing Conditions Not on fernando e 04/25/2023 Family and Community Support Answer Gordo e Recorded Help with Day-to-Day Activities Not on file 04/25/2023 Lonely or Isolated Not on file 04/25/2023 Employment Answer Date Recorded Do you want help finding or keeping work or a yudith b? Not on file 04/25/2023 Disabilities Answer Date Recorded Concentrating, Remembering, or Making Decisions Difficulty Not on file 04/25/2023 Doing Errands Independently Difficulty Not on fi le 04/25/2023 Education Answer Date Recorded Help with school or training? Not on file Preferred Language Not on file 04/25/2023 Comments Unknown Sex and Gender Information Value Date Recorded Sex Assigned at Not on file Legal Sex Female 11:54 AM EDT Gender Identity Not on file Sexual Orientation Not on file Plan of Treatment Health Maintenance Due Date Last Done Comments ANNUAL PHYSICAL 1938 DXA SCAN 1938 TDAP/TD VACCINES (1 - Tdap) 1957 ZOSTER VACCINE (1 of 2) 1988 RSV Vaccine - Adults (1 - 1- dose 75+ series) 2013 Pneumococcal Vaccine 50+ (2 of 2 - PCV) 05/31/2019 05/31/2018 COVID-19 Vaccine (2023- season) 2024 INFLUENZA VACCINE 04/14/2025 06/01/2019, , 04/19/2017 Insurance MEDICARE A & B Member Subscriber Plan / Payer (Ef fective 2003-Present) Name:Alejandra Ramos Member ID:[id number] Relation to Subscriber:Self Name:Alejandra Ramos Subscriber ID:[id number] Payer ID:[id number] Group ID:Not on file Type:Not on file Address: [id number] [employer] Care Teams Laundry Manager Relationship Specialty Start Date End Date Provider, No Known [facility] [place] [address] PCP - General 09/21/19
--- OUTSIDE RECORDS SUMMARY | 2025-03-01 12:41 | XMS_ITS | Encounter Summary ---
Author Organization [facility] Address [address] [place] [address] Care Team Providers Care Big Data Software Engineer Name Role Phone System, Provider Not In MD Primary Care Provider Unavailable Sal Mar MD Unavailable [phone] Edson Pendleton MD Primary Care Provider [phone] Encounter Details Date Type Department Care Team (Late st Contact Info) Description 07/19/2022 Orders Only [facility] @ [facility] [address] [place] [address] Fidel Vasquez MD [address] [place], [place] [id number] Social History Tobacco Use Types Packs/Day Years [...] External WBC 4.0 3.8 - 10.8 K/uL [facility] External Red Blood Cell (RBC) 3.72(L) 3.80 - 5.20 M/uL [facility] External Hemoglobin 11.3(L) 12.0 - 16.0 G/DL [facility] External Hematocrit 32.9(L) 35.0 - 47.0 % [facility] External MCV 89 80 - 100 fL [facility] External MCH 31 26 - 35 PG [facility] External MCHC 34 32 - 36 G/DL [facility] External RDW 15.7(H) 11.0 - 15.0 % [facility] External Mean Platelet Volume 7.4 6.2 - 10.5 fL [facility] External Platelets 263 130 - 400 K/uL [facility] External Neutrophil# 2.6 1.6 - 8.4 K/uL [facility] External Lymphocyte# 0.9 0.4 - 5.1 K/uL [facility] External Absolute Monocyte (Abs [place]) 0.3 0.0 - 1.2 K/uL [facility] External Eosinophils# 0.1 0.0 - 0.8 K/uL [facility] External Baso# 0.1 0.0 - 0.3 K/uL [facility] External Neutrophils % 66.0 42.0 - 78.0 % [facility] External Lymphocyte % 21.4 11.0 - 47.0 % [facility] External Monocyte % 8.1 0.0 - 11.0 % [facility] External Eosinophil% 3.2 0.0 - 7.0 % [facility] External Basophil % 1.3 0.0 - 3.0 % [facility] External Nucleated RBC%-Auto 0.2 0.0 - 0.9 % [facility] External Nucleated RBC Absolute 0.01 Not Estab. K/uL [facility] 07/19/2022 3:24 PM EST 07/19/2022 3:49 PM EST us Fidel Vasquez MD LAB BLOOD ORDERABLES Final R esult [facility] [address] [place] [address], documented in this encounter Visit Diagnoses Not on filedocumented in this encounter Care Teams Big Data Software Engineer Relationship Specialty Start Date End Date System, Provider Not In, [address] [place] [address] PCP - General Family Medicine 07/15/21 10/20/23 Edson Pendleton MD [address] [place] [address] PCP - General 10/21/23 Sal Mar MD [address] [place] [address] Medical Oncologist Hematology and Oncology 10/16/23 documented as of this encounter
--- OUTSIDE RECORDS SUMMARY | 2025-03-01 12:41 | XMS_ITS | Encounter Summary ---
Author Organization [facility] Address [address] [place] [address] Care Team Providers Care Nursing Care Partner Name Role Phone System, Provider Not In MD Primary Care Provider Unavailable Sal Mar MD Unavailable [phone] Edson Pendleton MD Primary Care Provider [phone] Encounter Details Date Type Department Care Team (Late st Contact Info) Description 02/08/2022 Orders Only [facility] [address] [place] [address] Sal Mar MD [address] [address] Social History Tobacco Use Types [...] External Glucose 106(H) 74 - 100 mg/dL [facility] External BUN 27(H) 6 - 20 mg/dL [facility] External Creatinine Blood 1.59(H) 0.50 - 0.95 mg/dL [facility] External BUN/Creat Ratio 17 10 - 20 (calc) [facility] External Sodium 141 136 - 145 mmol/L [facility] External Potassium 4.0 3.4 - 5.0 mmol/L [facility] External Chloride 103 98 - 107 mmol/L [facility] External Carbon Dioxide 26 22 - 31 mmol/L [facility] External Anion Gap (AG) 12 7 - 25 (calc) [facility] External Calcium 9.3 8.6 - 10.2 mg/dL [facility] External Total Protein 6.1(L) 6.4 - 8.3 g/dL [facility] External Albumin 4.1 3.5 - 5.2 g/dL [facility] External Globulin 2.0 1.5 - 4.5 g/dL (calc) [facility] External Albumin/Globulin Ratio 2.1 1.1 - 2.5 (calc) [facility] External Bilirubin Total 0.3 0.1 - 1.2 mg/dL [facility] External Alkaline Phosphatase 47 30 - 121 U/L [facility] External AST (SGOT) 19 0 - 32 U/L [facility] External ALT (SGPT) 13 0 - 33 U/L [facility] External Estimated GFR 32(A) >=60 [facility] Comment: NOTE New calculation for GFR (CKD-EPI 2020) is formulated without race adjustment factors at the recommendation of the National Kidney Foundation and [place] [employer]ph[employer]. This calculation has not been validated in women. For pediatric patients refer to https://www.kidney.org/professionals/KDOQI/gfr_calculatorPed 02/08/2022 2:16 PM EDT 02/08/2022 2:34 PM EDT us Sal Mar MD LAB BLOOD ORDERABLES Final Res ult [facility] [address] [place] [address], documented in this encounter Visit Diagnoses Not on filedocumented in this encounter Care Teams Nursing Care Partner Relationship Specialty Start Date End Date System, Provider Not In, [address] [place] [address] PCP - General Family Medicine 07/15/21 10/20/23 Edson Pendleton MD [address] [place] [address] PCP - General 10/21/23 Sal Mar MD [address] [place] [id number] Medical Oncologist Hematology and Oncology 10/16/23 documented as of this encounter
--- OUTSIDE RECORDS SUMMARY | 2025-03-01 12:41 | XMS_ITS | Encounter Summary ---
Author Organization [facility] Address [address] [place] [address] Care Team Providers Care Rubber Compounder Mixer Name Role Phone System, Provider Not In MD Primary Care Provider Unavailable aSl Mar MD Unavailable [phone] Edson Pendleton MD Primary Care Provider [phone] Encounter Details Date Type Department Care Team (Late st Contact Info) Description 02/08/2022 Orders Only [facility] at [facility] [address] [place] [address] Sal Mar MD [address] [address] Social History Tobacco Use Types [...] External Ferritin 94 13 - 157 ng/mL [facility] 02/08/2022 2:16 PM EDT 02/08/2022 2:34 PM EDT Sal Mra MD LAB BLOOD ORDERABLES Final Res ult [facility] [address] [place] [address], documented in this encounter Visit Diagnoses Not on filedocumented in this encounter Care Teams Rubber Compounder Mixer Relationship Specialty Start Date End Date System, Provider Not In, [address] [place] [address] PCP - General Family Medicine 07/15/21 10/20/23 Edson Pendleton MD [address] [place] [address] [address] [place] [address] PCP - General 10/21/23 Sal Mar MD [address] [place] [address] Medical Oncologist Hematology and Oncology 10/16/23 documented as of this encounter
--- OUTSIDE RECORDS SUMMARY | 2025-03-01 12:41 | XMS_ITS | Encounter Summary ---
Author Organization [facility] Address [address] [place] [address] Care Team Providers Care Chisel Worker Name Role Phone System, Provider Not In MD Primary Care Provider Unavailable Sal Mar MD Unavailable [phone] Edson Pendleton MD Primary Care Provider [phone] Encounter Details Date Type Department Care Team (Late st Contact Info) Description 11/08/2022 Orders Only [facility] at [facility] [address] [place] [address] Sal Mar MD [address] [phone] Social History Tobacco Use Types Packs/Day Years [...] External Ferritin 9(L) 13 - 157 ng/mL [facility] 11/08/2022 12:4 5 PM EDT 11/08/2022 12:54 PM EDT Sal Mar MD LAB BLOOD ORDERABLES Final Res ult [facility] [address] [place] [address], documented in this encounter Visit Diagnoses Not on filedocumented in this encounter Care Teams Chisel Worker Relationship Specialty Start Date End Date System, Provider Not In, [address] [place] [address] PCP - General Family Medicine 07/15/21 10/20/23 Edson Pendleton MD [address] [place] [address] PCP - General 10/21/23 Sal Mar MD [address] [place] [address] Medical Oncologist Hematology and Oncology 10/16/23 documented as of this encounter
--- OUTSIDE RECORDS SUMMARY | 2025-03-01 12:41 | XMS_ITS | Encounter Summary ---
Author Organization [facility] Address [address] [place] [address] Care Team Providers Care Flag Football Coach Name Role Phone System, Provider Not In MD Primary Care Provider Unavailable Sal Mar MD Unavailable [phone] Edson Pendleton MD Primary Care Provider [phone] Encounter Details Date Type Department Care Team (Late st Contact Info) Description 02/08/2022 Orders Only [facility] at [facility] [address] [place] [address] Sal Mar MD [address] [address] Social History Tobacco Use Types [...] External WBC 4.3 3.8 - 10.8 K/uL [facility] External Red Blood Cell (RBC) 3.61(L) 3.80 - 5.20 M/uL [facility] External Hemoglobin 11.5(L) 12.0 - 16.0 G/DL [facility] External Hematocrit 32.7(L) 35.0 - 47.0 % [facility] External MCV 91 80 - 100 fL [facility] External MCH 32 26 - 35 PG [facility] External MCHC 35 32 - 36 G/DL [facility] External RDW 14.1 11.0 - 15.0 % [facility] External Mean Platelet Volume 7.1 6.2 - 10.5 fL [facility] External Platelets 216 130 - 400 K/uL [facility] External Neutrophil# 3.2 1.6 - 8.4 K/uL [facility] External Lymphocyte# 0.6 0.4 - 5.1 K/uL [facility] External Absolute Monocyte (Abs [place]) 0.4 0.0 - 1.2 K/uL [facility] External Eosinophils# 0.1 0.0 - 0.8 K/uL [facility] External Baso# 0.1 0.0 - 0.3 K/uL [facility] External Neutrophils % 74.5 42.0 - 78.0 % [facility] External Lymphocyte % 13.0 11.0 - 47.0 % [facility] External Monocyte % 8.8 0.0 - 11.0 % [facility] External Eosinophil% 2.4 0.0 - 7.0 % [facility] External Basophil % 1.3 0.0 - 3.0 % [facility] External Nucleated RBC%-Auto 0.1 0.0 - 0.9 % [facility] External Nucleated RBC Absolute 0.00 Not Estab. K/uL [facility] 02/08/2022 2:16 PM EDT 02/08/2022 2:22 PM EDT us Sal Mar MD LAB BLOOD ORDERABLES Final Res ult [facility] [address] [place] [address], documented in this encounter Visit Diagnoses Not on filedocumented in this encounter Care Teams Flag Football Coach Relationship Specialty Start Date End Date System, Provider Not In, [address] [place] [address] PCP - General Family Medicine 07/15/21 10/20/23 Edson Pendleton MD [address] [place] [address] PCP - General 10/21/23 Sal Mar MD [address] [place] [address] Medical Oncologist Hematology and Oncology 10/16/23 documented as of this encounter
--- OUTSIDE RECORDS SUMMARY | 2025-03-01 12:41 | XMS_ITS | Encounter Summary ---
Author Organization [facility] Address [address] [place] [address] Care Team Providers Care Investigative Research Specialist Name Role Phone System, Provider Not In MD Primary Care Provider Unavailable Sal Mar MD Unavailable [phone] Edson Pendleton MD Primary Care Provider [phone] Encounter Details Date Type Department Care Team (Late st Contact Info) Description 07/19/2022 Orders Only [facility] @ [facility] [address] [place] [address] Fidel Vasquez MD [address] [place], [place] [id number] Social History Tobacco Use Types Packs/Day Years [...] C-Reactive Protein <0.06 0.00 - 0.49 mg/dL [facility] 07/19/2022 3:24 PM EST 07/19/2022 3:56 PM EST Fidel Vasquez MD LAB BLOOD ORDERABLES Final R esult [facility] [address] [place] [address], documented in this encounter Visit Diagnoses Not on filedocumented in this encounter Care Teams Investigative Research Specialist Relationship Specialty Start Date End Date System, Provider Not In, [address] [place] [address] PCP - General Family Medicine 07/15/21 10/20/23 Edson Pendleton MD [address] [place] [address] PCP - General 10/21/23 Sal Mar MD [address] [place] [address] Medical Oncologist Hematology and Oncology 10/16/23 documented as of this encounter
--- OUTSIDE RECORDS SUMMARY | 2025-03-01 12:41 | XMS_ITS | Clinical Summary ---
Author Organization [employer] ([place], [place], [place], [place]) Address [address] [place] [address] Care Team Providers Care Second Grade Teacher Name Role Phone Unavailable Primary Care Provider [...]
--- OUTSIDE RECORDS SUMMARY | 2025-03-01 12:41 | XMS_ITS | Encounter Summary ---
Author Organization [facility] Address [address] [place] [address] Care Team Providers Care Fan Mail Clerk Name Role Phone System, Provider Not In MD Primary Care Provider Unavailable Sal Mar MD Unavailable [phone] Edson Pendleton MD Primary Care Provider [phone] Encounter Details Date Type Department Care Team (Late st Contact Info) Description 11/08/2022 Orders Only [facility] at [facility] [address] [place] [address] Sal Mar MD [address] [phone] Social History Tobacco Use Types Packs/Day Years [...] External WBC 4.3 3.8 - 10.8 K/uL [facility] External Red Blood Cell (RBC) 3.16(L) 3.80 - 5.20 M/uL [facility] External Hemoglobin 9.9(L) 12.0 - 16.0 G/DL [facility] External Hematocrit 29.0(L) 35.0 - 47.0 % [facility] External MCV 92 80 - 100 fL [facility] External MCH 31 26 - 35 PG [facility] External MCHC 34 32 - 36 G/DL [facility] External RDW 14.3 11.0 - 15.0 % [facility] External Mean Platelet Volume 7.2 6.2 - 10.5 fL [facility] External Platelets 206 130 - 400 K/uL [facility] External Neutrophil# 3.2 1.6 - 8.4 K/uL [facility] External Lymphocyte# 0.6 0.4 - 5.1 K/uL [facility] External Absolute Monocyte (Abs [place]) 0.4 0.0 - 1.2 K/uL [facility] External Eosinophils# 0.1 0.0 - 0.8 K/uL [facility] External Baso# 0.1 0.0 - 0.3 K/uL [facility] External Neutrophils % 74.1 42.0 - 78.0 % [facility] External Lymphocyte % 14.0 11.0 - 47.0 % [facility] External Monocyte % 8.2 0.0 - 11.0 % [facility] External Eosinophil% 2.5 0.0 - 7.0 % [facility] External Basophil % 1.2 0.0 - 3.0 % [facility] External Nucleated RBC%-Auto 0.0 0.0 - 0.9 % [facility] External Nucleated RBC Absolute 0.00 Not Estab. K/uL [facility] 11/08/2022 12:4 5 PM EDT 11/08/2022 12:53 PM EDT us Sal Mar MD LAB BLOOD ORDERABLES Final Res ult [facility] [address] [place] [id number], documented in this encounter Visit Diagnoses Not on filedocumented in this encounter Care Teams Fan Mail Clerk Relationship Specialty Start Date End Date System, Provider Not In, [address] [place] [address] PCP - General Family Medicine 07/15/21 10/20/23 Edson Pendleton MD [address] [place] [address] PCP - General 10/21/23 Sal Mar MD [address] [place] [address] Medical Oncologist Hematology and Oncology 10/16/23 documented as of this encounter
--- OUTSIDE RECORDS SUMMARY | 2025-03-01 12:41 | XMS_ITS | Encounter Summary ---
Author Organization [facility] Address [address] [place] [address] Care Team Providers Care Director Talent Acquisition Name Role Phone System, Provider Not In MD Primary Care Provider Unavailable Sal Mar MD Unavailable Edson Pendleton MD Primary Care Provider [phone] Encounter Details Date Type Department Care Team (Late st Contact Info) Description 07/19/2022 Orders Only [facility] @ [facility] [address] [place] [address] Fidel Vasquez MD [address] [place], [place] [id number] Social History Tobacco Use Types Packs/Day Years [...] External Ferritin 14 13 - 157 ng/mL [facility] 07/19/2022 3:24 PM EST 07/19/2022 3:56 PM EST Fidel Vasquez MD LAB BLOOD ORDERABLES Final R esult [facility] [address] [place] [address], documented in this encounter Visit Diagnoses Not on filedocumented in this encounter Care Teams Director Talent Acquisition Relationship Specialty Start Date End Date System, Provider Not In, [address] [place] [address] PCP - General Family Medicine 07/15/21 10/20/23 Edson Pendleton MD [address] [facility] [address] [place] [address] PCP - General 10/21/23 Sal Mar MD [address] [place] [id number] Medical Oncologist Hematology and Oncology 10/16/23 documented as of this encounter
--- OUTSIDE RECORDS SUMMARY | 2025-03-01 12:42 | XMS_ITS | Patient Health Record ---
[facility] [address] [facility] [address] [place] [id number] Care Team Providers Care [employer] Designer Name Role Phone Unique Pendleton Primary Care Provider Daniel Keys Unavailable [phone] Claudette Rees Unavailable [phone] Mar Paz Unavailable [phone] Allergies Allergen (clinical drug ingredient) Drug/Non Drug [...] Interpretation: Performing Lab: Notes/Report: Test performed by [facility] [address] [place], [place] [address] [place] , [address], [place] [address] Sawyer Hyman MD, Risk Modeler CLIA: [id number] Magnesium 1.2 1.6-2.4 mg/dL P-Comprehensive Metabolic Pa lyndsey (CMP) Reviewed date:06/25/2024 08:39:31 AM Interpretation: Performing Lab: Notes/Report: Test performed by [facility] [address] [facility] , [address], [place] [address] Sawyer Hyman MD, Risk Modeler CLIA: [id number] Sodium 142 135-145 mmol/L Potassium 4.6 3.5-5.3 [...] - 38 platlet 246 100 - 400 Mammogram Reviewed date:04/10/2024 09:36:02 AM Interpretation:benign Performing Lab: Notes/Report: benign result benign X ray : Ankle, left Reviewed date:01/21/2025 08:24:07 AM Interpretation:soft tissue swelling Performing Lab: Notes/Report: soft tissue swelling P-TSH Reviewed date:01/03/2025 10:10:06 PM Interpretation:3.24 Performing Lab: Notes/Report: Test performed by [facility] , [address], [place] [address] Sawyer Hyman MD, Risk Modeler CLIA: [id number] TSH 3.24 0.43-5.25 mU/L P-Magnesium Reviewed date:01/03/2025 10:10:06 PM Interpretation:1.4 Performing Lab: Notes/Report: Test performed by [facility] [address] [place] [address] , [facility] [address], [place] [address] Sawyer Hyman MD, Risk Modeler CLIA: [id number] Magnesium 1.4 1.6-2.4 mg/dL CBC Venipuncture (in house) Reviewed date:01/03/2025 10:10:06 [...] Interpretation:464 Performing Lab: Notes/Report: Test performed by [facility] [address] [place] [address] [place] [address] Sawyer Hyman MD, Risk Modeler CLIA: [id number] Vitamin B12 744 844-1209 pg/mL P-Comprehensive Metabolic Pa lyndsey (CMP) Reviewed date:01/03/2025 10:10:06 PM Interpretation:GFR 39 Performing Lab: Notes/Report: Test performed by [facility] [address] [place] [address] , [address], [place] [address] Sawyer Hyman MD, Risk Modeler CLIA: [id number] Sodium 143 135-145 mmol/L Potassium 4.0 3.5-5.3 [...] 0.2 <0.2-1.2 mg/dL A/G Ratio 1.9 1.1-2.5 Reason For Referral No Information Medications Medication SIG (Take, Route, Frequency, Duration) Notes Start Date End Date Status Mometasone Furoate 0.1 % 1 application Externally Once a day 01/19/2025 Active tiZANidine HCl 2 MG 1 tablet [...] tab(s) orally onc e a day Active Tricor 48 MG 1 tab(s) orally once a day; Duration: 90 days Active Vitamin D 50 MCG (2000 UT) 1 tablet Oral ly Once a day; Duration: 30 day(s) Active Potassium Chloride ER 10 MEQ 1 cap(s) or ally 2 times a day; Duration: 90 days Active azaTHIOprine 50 MG 1 tab(s) orally once a day; Duration: 30 day(s) 09/14/2020 Active Cyclobenzaprine HCl 5 MG 1 tablet Orally 3 times a day 02/25/2025 Active Immunizations Vaccine Route Administration Date Status [...] Administered Prevnar (PCV20) IM Intramuscular 05/07/2023 Administered D megan Hawkins administered per [facility], failed to document in ecw xFlu shot-36 [...] Status W/U Status Risk Notes Problem Sinusitis (34803349) Sinusitis (J32.9) Active c onfirmed Problem Chronic renal insufficiency (702969193) Chronic renal insufficiency (N18.9) Active confirmed Problem Hypertriglyceridemia (894988320) Hypertriglyceridemia (E78.1) Active confirmed Problem Anxiety (04769130) Anxiety (F41.9) Active confi rmed Problem Hypertension (56243616) Hypertension (I10) Active confirmed Problem Osteopenia (913591325) Osteopenia (M85.80) Active confirmed Problem Sciatic nerve lesion (067270033) Piriformis syndrome of left side (G57.02) Active confirmed Problem Osteoarthritis (647219235) Osteoarthritis (M19.90) Active confirmed Problem Paresthesia (24496644) Paresthesia (R20.2) Active confirmed Problem Iron deficiency anemia (45372403) Iron deficiency anemia (D50.9) Active confirmed Problem Vitamin B12 deficiency (non anemic) (76267599) Vitamin B 12 deficiency (E53.8) Active confirmed Problem Sciatica (10256122) Sciatica of left side (M54.32) Active confirmed Problem Chronic maxillary sinusitis (14486076) Chronic maxillary sinusitis (J32.0) Active confirmed Problem Crohn's disease of large bowel (5728326) Crohn's disease of large intestine without complications (K50.10) Active confirmed Problem Pulmonary fibrosis (46306045) Pulmonary fibrosis (J84.10) Active confirmed Problem Crohn disease (80158781) Crohn disease (K50.90) Active confirmed Problem History of tuberculosis (896185769) 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) Active confirmed Problem Transient cerebral ischemia (713763043) Transient cerebral ischemia, unspecified type (G45.9) Active confirmed Problem Localized, primary osteoarthritis of the pelvic region and thigh (667222467) 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) Active confirmed Problem Arthritis of right knee (8723680288381259) Arthritis of knee, 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) Active confirmed Problem Sciatica (23564257) Left sciatic nerve pain (M54.32) Active confirmed Problem Chronic anemia (520334635) Chronic anemia (D64.9) Active confirmed Problem Localized, primary osteoarthritis of the wrist (060887645) 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 Vital Signs Heart Rate 83 /min 01/19/2025 Blood pressure diastolic 74 mm Hg 01/19/2025 Height 64 in 01/19/2025 Blood pressure systolic 133 mm Hg 01/19/2025 Weight 125.2 lbs 01/19/2025 BMI 21.49 kg/m2 01/19/2025 Encounters Encounter Location Date Provider Diagnosis [facility] [address] [place] [id number] 03/11/2024 R Mono Helder Vitamin B12 deficien cy E53.8 [facility] [address] [place], [place] [id number] 03/30/2024 R Mono Helder Vitamin B12 deficien cy E53.8 [facility] [address] [place], [place] [id number] 04/15/2024 Daniel Kaleva Vitamin B12 deficien cy E53.8 [facility] [address] [place], [place] [id number] 04/27/2024 Claudette Rees Sinusitis J32.9 [facility] [address] [place], [place] [id number] 05/06/2024 R Mono Helder Vitamin B12 deficien cy E53.8 [facility] [address] [place], [place] [id number] 05/21/2024 R Mono Helder B12 vitamin deficien cy 266.2 [facility] [address] [place], [place] [id number] 06/05/2024 R Mono Helder Vitamin B 12 deficie ncy E53.8 [facility] [address] [place], [place] [id number] 06/23/2024 R Mono Helder Leg edema R60.0 ; Hypertension I10 ; Chronic renal insufficiency N18.9 ; Hypertriglyceridemia E78.1 ; Vitamin B 12 deficiency E53.8 and Pulmonary fibrosis J84.10 [facility] [address] [place], [place] [id number] 07/16/2024 R Mono Helder Arthritis of knee, r ight M19.90 ; Bakers cyst of knee, right M71.21 and Vitamin B 12 deficiency E53.8 [facility] [address] [place], [place] [id number] 08/10/2024 R Mono Helder Vitamin B 12 deficie ncy E53.8 [facility] [address] [place], [place] [id number] 08/24/2024 R Mono Helder Vitamin B 12 deficie ncy E53.8 [facility] [address] [facility] [address] [place], [place] [id number] 10/09/2024 R Mono Helder Vitamin B 12 deficie ncy E53.8 and Hypertension I10 [facility] [address] [place], [place] [id number] 10/28/2024 R Mono Helder Vitamin B 12 deficie ncy E53.8 [facility] [address] [facility] [address] [place], [place] [id number] 11/12/2024 R Mono Helder Vitamin B 12 deficie ncy E53.8 [facility] [address] [place], [place] [id number] 12/17/2024 R Mono Helder Vitamin B 12 deficie ncy E53.8 [facility] [address] [place], [place] [id number] 12/24/2024 Mar Paz Acute left ankle talita n M25.572 ; BMI 21.0-21.9, adult Z68.21 ; Pulmonary fibrosis J84.10 ; Crohn disease K50.90 ; Chronic anemia D64.9 and Crohn's disease of large intestine without complications K50.10 [facility] [address] [place], [place] [id number] 12/29/2024 R Mono Helder Adult general medica l examination Z00.00 ; Paresthesia R20.2 ; Iron deficiency anemia D50.9 ; Leg edema R60.0 ; Pulmonary fibrosis J84.10 ; Anxiety F41.9 ; Crohn disease K50.90 ; BMI 20.0-20.9, adult Z68.20 ; Osteopenia M85.80 ; History of TB (tuberculosis) Z86.11 ; Hypertension I10 and Hypertriglyceridemia E78.1 [facility] [address] [place], [place] [id number] 01/11/2025 Daniel Kaleva Vitamin B 12 deficie ncy E53.8 [facility] [address] [place], [place] [id number] 01/19/2025 R Mono Helder Acute left ankle talita n M25.572 ; Eczema L30.9 and BMI 21.0-21.9, adult Z68.21 [facility] [address] [place], [place] [id number] 04/21/2024 R Mono Helder [facility] [address] [place], [place] [id number] 06/25/2024 R Mono Helder [facility] [address] [place], [place] [id number] 06/25/2024 R Mono Helder [facility] [address] [place], [place] [id number] 10/12/2024 R Mono Helder [facility] [address] [place], [place] [id number] 12/17/2024 R Mono Helder [facility] [address] [place], [place] [id number] 01/03/2025 R Mono Helder [facility] [address] [place], [place] [id number] 01/04/2025 R Mono Helder Anxiety F41.9 [facility] [address] [place], [place] [id number] 01/11/2025 R Mono Helder Hypertension I10 [facility] [address] [place], [place] [id number] 01/21/2025 R Mono Helder [facility] [address] [place], [place] [id number] 02/04/2025 R Mono Helder Hypertension I10 [facility] [address] [place], [place] [id number] 02/25/2025 R Mono Helder Assessments Encounter Date Diagnosis (ICD Code) Assessment Notes Treatment Notes Treatment Clinical Notes Section Notes 03/30/2024 Vitamin B12 deficien cy (ICD-10 - [...] - Z68.21) 12/29/2024 Paresthesia (ICD-10 - R20.2) 12/29/2024 Adult general medica l examination (ICD-10 - Z00.00) Patient instructed to return to office Annually for Annual Wellness Visits to include annual screenings of Pain assessment, Functional Ability assessment, Cognitive Ability assessment, Fall Risk assessment, Depression screening and Bladder control screening. 01/04/2025 Anxiety (ICD-10 - F41.9) 01/19/2025 Eczema (ICD-10 - L30.9) 01/19/2025 Acute left ankle talita n (ICD-10 - M25.572) Recommend compression socks 02/04/2025 Hypertension (ICD-10 - I10) 01/11/2025 Vitamin B 12 deficie ncy (ICD-10 - E53.8) 01/11/2025 Hypertension (ICD-10 - I10) 04/15/2024 Vitamin B12 deficien cy (ICD-10 - E53.8) 03/11/2024 Vitamin B12 deficien cy (ICD-10 - E53.8) 08/24/2024 Vitamin B 12 deficie ncy (ICD-10 - E53.8) 01/19/2025 BMI 21.0-21.9, adult (ICD-10 - Z68.21) 07/16/2024 Vitamin B 12 deficie ncy (ICD-10 - E53.8) 12/29/2024 Iron deficiency anem ia (ICD-10 - D50.9) 12/24/2024 Pulmonary fibrosis (ICD-10 - J84.10) 10/09/2024 Hypertension (ICD-10 - I10) 06/23/2024 Chronic renal insufficiency (ICD-10 - N18.9) 06/23/2024 Hypertriglyceridemia (ICD-10 - E78.1) 12/24/2024 Crohn disease (ICD-1 0 - K50.90) 12/29/2024 Leg edema (ICD-10 - R60.0) 12/29/2024 Pulmonary fibrosis (ICD-10 - J84.10) 12/24/2024 Chronic anemia (ICD- 10 - D64.9) 06/23/2024 Vitamin B 12 deficie ncy (ICD-10 - E53.8) 06/23/2024 Pulmonary fibrosis (ICD-10 - J84.10) 12/24/2024 Crohn's disease of large intestine without complications (ICD-10 - K50.10) 12/29/2024 Anxiety (ICD-10 - F41.9) 12/29/2024 Crohn disease (ICD-1 0 - K50.90) 12/29/2024 BMI 20.0-20.9, adult (ICD-10 - Z68.20) 12/29/2024 Osteopenia (ICD-10 - M85.80) 12/29/2024 History of TB (tuberculosis) (ICD-10 - Z86.11) 12/29/2024 Hypertension (ICD-10 - I10) 12/29/2024 Hypertriglyceridemia (ICD-10 - E78.1) Plan Of Treatment Pending Test Test Name Order Date Bone density 12/29/2024 Insurance Providers Payer Name Payer Address Payer Phone Subscriber Number Group Number Insured Name Patient Relationship to Insured Coverage Start Date Coverage End Date MEDICARE PART B [address] [address] [place] [address] [id number] PARVIN MALONE Self - patient is the insured [facility] [address] [place] [id number] PARVIN MALONE Self - patient is the [...] EGD 2019 Hospitalization History Reason Date(Month/Year) Hypertension- [facility] ER 12/28/2017
[2025-03-01 13:30] LABS: Hematocrit 37.8 % (37.0-47.0); Hemoglobin 12.6 g/dL (12.2-16.2); Immature Granulocytes % 0.2 %; Mean Corpuscular HGB Conc 33.3 g/dL (31.8-35.4); Mean Corpuscular Hemoglobin 31.5 pg (27.0-31.2); Mean Corpuscular Volume 94.5 fl (81-99); Nucleated Red Blood Cells % 0 %; Platelet Count 362 K/mm3 (142-424); Red Blood Count 4.00 M/mm3 (4.20-5.40); Red Cell Distribution Width-SD 50.7 fL; White Blood Count 10.0 K/mm3 (4.8-10.8)
[2025-03-01 13:31] LABS: Albumin Level 4.3 g/dl (3.5-5.0); Chloride 106 mmol/L (98-107); Potassium 3.2 mmoL/L (3.5-5.1); Sodium 141 mmol/L (136-145)
[2025-03-01 13:34] LABS: Alanine Aminotransferase 19 U/L (12-78); Albumin/Globulin Ratio 1.4 (1.1-1.8); Alkaline Phosphatase 89 U/L (38-126); Anion Gap 14.2 mEq/L (5-15); Aspartate Amino Transferase 30 U/L (14-36); Bilirubin,Total 0.5 mg/dl (0.2-1.3); Blood Urea Nitrogen 25 mg/dl (7-17); Calcium 9.5 mg/dl (8.4-10.2); Carbon Dioxide 24 mmol/L (22.0-30.0); Creatine Kinase 42 U/L (30-135); Creatinine Clearance Estimated 26 mL/min (50-200); Creatinine,Serum 1.40 mg/dl (0.52-1.04); Estimated Glomerular Filt Rate 36 ml/min (>60); GFR (African American) 43 ML/MIN (>60); Globulin 3.0 g/dL (1.3-3.2); Glucose 115 mg/dl (74-100); Total Protein,Serum 7.3 g/dl (6.3-8.2)
--- NOTE | 2025-03-01 14:15 | HMH.EDGENADL ---
Discharge Plan Disposition Patient Disposition: Home, Self-Care Condition: Good Prescriptions Prescriptions: New methocarbamol 750 mg tablet 750 mg PO Q8H Qty: 90 0RF No Action diclofenac sodium [Arthritis Pain (diclofenac)] 1 % gel 2 g topical QID Qty: 100 2RF Rx Instructions: apply to single elbow, wrist or hand; for hand includes palm/fingers/back of hand tizanidine 2 mg capsule 2 mg PO BID PRN (Reason: muscle spasticity) Qty: 14 0RF azathioprine 50 tablet 1 tab PO DAILY potassium chloride [Klor-Con] 20 MEQ packet 1 tab PO DAILY fenofibrate nanocrystallized 48 tablet 1 tab PO DAILY nebivolol [Bystolic] 10 tablet 10 mg PO DAILY fluticasone propionate 50 spray,suspension 1 spray * DAILY nebivolol [Bystolic] 10 tablet 10 mg PO DAILY clonidine HCl 0.1 MG tablet 0.1 mg PO TID PRN (Reason: Blood Pressure - High) Qty: 20 0RF Referrals Follow up/Referrals: Edson Pendleton MD [Primary Care Provider, Medical] - See instructions Activity Restrictions/Add. Instructions Additional Instructions/Restrictions: I want you to continue taking your potassium supplement at home as this can contribute to your muscle spasms. I also want you to stop taking the muscle relaxer previously provided to you, and to begin taking Robaxin 3 times daily. If you have any new or worsening symptoms please return to the emergency department. Otherwise, I would like for you to follow-up with your primary care physician Dr. Pendleton for further evaluation. Clinical Impressions Clinical Impression: Muscle spasm, Acute hypokalemia Instructions Patient Instructions: DI for Back Spasm Print Language Print Language: Palestinian Discharge ED Provider: Alireza Tamez General Adult HPI General Chief complaint: Back Pain/Injury Stated complaint: Back Pain Time Seen by Provider: 03/01/25 12:53 Mode of Arrival: EMS Source of Information: Patient Description of Symptoms (Recalled from ER Triage Doc. by RN): Patient presents to ED from home with EMS for right lower back pain for one week. Denies any known injury, no falls. Denies urinary s/s. History of Present Illness HPI narrative: This is an 84-year-old female patient, with past medical history of Crohn's disease and uncontrolled hypertension, who is presenting to the emergency department today for evaluation of muscle spasms in her back. The patient states that over the course of the week she is experienced muscle spasms in her lumbar region. The spasms occur bilaterally and are located inferiorly near the pelvis. She states that she does have worsening stiffness and pain with walking. She does not feel that her pain is in the midline. She has not had any urinary symptoms such as dysuria, hematuria, or urinary frequency. She has not had any saddle anesthesia or lower extremity radiculopathy. No sensory deficits in the lower extremities or motor deficits in the lower extremities. No fevers or chills. She has not had any traumatic injury to her back. She does state that she saw her primary care physician earlier this week and he prescribed a muscle relaxer for the spasms, however she cannot remember the name of this medication. She has received minimal relief with this. Related Data Home Medications ?Medication ?Instructions ?Recorded ?Confirmed azathioprine 50 mg tablet 1 tab PO DAILY Cronhs 12/28/17 07/03/24 fenofibrate nanocrystallized 48 mg 1 tab PO DAILY Cholesterol 12/28/17 07/03/24 tablet fluticasone propionate 50 1 spray DAILY ALLERGIES 12/28/17 07/03/24 mcg/actuation nasal spray,suspension nebivolol 10 mg tablet (Bystolic) 10 mg PO DAILY Hypertension 12/28/17 07/03/24 nebivolol 10 mg tablet (Bystolic) 10 mg PO DAILY Hypertension 12/28/17 07/03/24 potassium chloride 20 mEq oral 1 tab PO DAILY Supplement 12/28/17 07/03/24 packet (Klor-Con) Previous Rx's ?Medication ?Instructions ?Recorded clonidine HCl 0.1 mg tablet 0.1 mg PO TID PRN Blood Pressure - 12/28/17 High #20 tabs diclofenac sodium 1 % topical gel 2 g topical QID #100 grams 07/03/24 (Arthritis Pain (diclofenac)) tizanidine 2 mg capsule 2 mg PO BID PRN muscle spasticity 07/03/24 #14 caps methocarbamol 750 mg tablet 750 mg PO Q8H #90 tabs 03/01/25 Allergies Allergy/AdvReac Type Severity Reaction Status Date / Time erythromycin base Allergy Fever Verified 02/15/25 11:43 Penicillins Allergy Rash Verified 02/15/25 11:43 streptomycin Allergy Fever Verified 02/15/25 11:43 tetracycline Allergy Rash Verified 02/15/25 11:43 [facility] Disclaimer: The information contained in this section may have been updated after the patient was seen, as this information can be updated by other users. Social History (Updated 07/03/24 @ 12:34 by Lisa Gordon APRN) Smoking Status: Never smoker alcohol intake: never current occupational status: retired Travel in the last 8 weeks?: None Have you lived/traveled outside US in past 30 days?: No Contact w/someone who lives/traveled outside US past 30 days?: No Exposure to someone with infectious disease in past 14 days?: No Do you have a fever (greater than 100.4 F or 38 C)?: No Have you tested positive for COVID-19?: No Exposed to someone with COVID-19 in past 14 days?: No Do you have a sore throat?: No Do you have a cough?: No Do you have any weakness?: No Do you have any diarrhea?: No Are you experiencing any unusual bleeding?: No Do you have any muscle aches/pain?: No Do you have any abdominal pain?: No Are you experiencing loss of taste or smell?: No Other Medical History Have you received the Pneumonia Vaccine: Yes ROS Obtained: Yes Systems reviewed as appropriate & no additional complaints except as documented Physical Exam General General appearance: other (See MDM) Respiratory Respiratory exam: Present other (See MDM) Cardiovascular Cardiovascular exam: Present other (See MDM) Neurological Exam Neurological exam: Present other (See MDM) Medical Decision Making Medical Records Medical records reviewed: Yes I reviewed the patient's medical records. Screening: Per USPSTF and CDC recommendations, given the prevalence of disease in our region, it is our hospital?s policy to screen for HIV and viral Hepatitis for all patients aged 18 and over and those with ongoing risk factors. Jak Inquiry Pt receiving controlled substance: No Jak was queried for this patient: No Vital Signs: 03/01/25 12:26 03/01/25 12:26 03/01/25 14:30 Temperature 98.8 F 98.8 F Temperature Source Oral Oral Pulse Rate 121 H 87 Pulse Rate [Right] 121 H Respiratory Rate 20 20 Blood Pressure 163/90 H 170/81 H Blood Pressure [Right Arm] 163/90 H Blood Pressure Mean [Right Arm] 114 02 Sat by Pulse Oximetry 97 97 94 L Oxygen Delivery Method Room Air Room Air 03/01/25 15:01 03/01/25 18:22 Temperature 98.8 F Temperature Source Pulse Rate 83 88 Pulse Rate [Right] Respiratory Rate 16 Blood Pressure 156/86 H 192/88 H Blood Pressure [Right Arm] Blood Pressure Mean [Right Arm] 02 Sat by Pulse Oximetry 95 Oxygen Delivery Method Room Air Lab Data Lab Results 03/01/25 12:08: WBC 10.0, RBC 4.00 L, Hgb 12.6, Hct 37.8, MCV 94.5, MCH 31.5 H, MCHC 33.3, RDW 14.6, Plt Count 362, MPV 10.2, Neut % (Auto) 86.5 H, Lymph % (Auto) 3.8 L, [place] % (Auto) 7.6, Eos % (Auto) 1.2, Baso % (Auto) 0.7, Neut # (Auto) 8.6 H, Lymph # (Auto) 0.4 L, [place] # (Auto) 0.8, Eos # (Auto) 0.1, Baso # (Auto) 0.1, Total Counted 100, Neutrophils % (Manual) 82 H, Lymphocytes % (Manual) 11, Monocytes % (Manual) 6, Eosinophils % (Manual) 1, Platelet Estimate Normal, RBC Morphology Normal, Sodium 141, Potassium 3.2 L, Chloride 106, Carbon Dioxide 24, Anion Gap 14.2, BUN 25 H, Creatinine 1.40 H, Estimated Creat Clear 26, Estimated GFR 36 L, Est GFR ( Amer) 43 L, Glucose 115 H, Calcium 9.5, Total Bilirubin 0.5, AST 30, ALT 19, Alkaline Phosphatase 89, Total Creatine Kinase 42, Total Protein 7.3, Albumin 4.3, Globulin 3.0, Albumin/Globulin Ratio 1.4 03/01/25 15:15: Urine Color Yellow, Urine Appearance Clear, Urine pH 6.0, Ur Specific [place] 1.025, Urine Protein 2+ A, Urine Glucose (UA) Negative, Urine Ketones Negative, Urine Blood Negative, Urine Nitrate Negative, Urine Bilirubin 1+ A, Urine Urobilinogen 0.2, Ur Leukocyte Esterase Negative, Urine RBC None, Urine WBC 3-5, Ur Squamous Epith Cells 3-5, Urine Bacteria 1+, Hyaline Casts Occ, Urine Mucus Trace 03/01/25 12:08 03/01/25 12:08 Orders (Tests/Meds): ED MEDICATIONS Discontinued Medications Generic Name Dose Route Start Last Admin Trade Name Nitin PRN Reason Stop Dose Admin Acetaminophen 1,000 mg 03/01/25 16:23 03/01/25 16:47 Acetaminophen 500mg Tab PO 03/01/25 16:24 1,000 mg ONCE ONE Administration Lactated Ringer's 1,000 mls @ 999 mls/hr 03/01/25 13:43 03/01/25 17:44 Lactated Ringer's 1000 Ml Bag IV 03/01/25 14:43 Infused .Q1H1M ONE Infusion Lidocaine 1 each 03/01/25 16:23 03/01/25 16:47 Lidocaine 5% Transdermal Patch TD 03/01/25 16:24 1 each ONCE ONE Administration Methocarbamol 1,500 mg 03/01/25 13:33 03/01/25 14:20 Methocarbamol 500mg Tablet PO 03/01/25 13:34 1,500 mg ONCE ONE Administration Potassium Chloride 40 meq 03/01/25 13:42 03/01/25 14:19 Potassium Chloride 20meq Tab PO 03/01/25 13:43 40 meq ONCE ONE Administration ORDERS Category Date Time Status CBC w/Auto Diff [Complete Blood Count Auto Diff] Stat Lab 03/01/25 12:08 Completed CK [Creatine Kinase] Stat Lab 03/01/25 12:08 Completed CMP [Comprehensive Metabolic Panel] Stat Lab 03/01/25 12:08 Completed UA [Urinalysis and Microscopic] Stat Lab 03/01/25 15:15 Completed Medical Decision Narrative: In summary, this is an 84-year-old female patient who is presenting to the emergency department today for evaluation of back spasms over the last several days. Patient's comorbidities include a history of Crohn's colitis as well as uncontrolled hypertension. On initial evaluation of the patient they were resting comfortably in no acute distress and nontoxic in appearance. They are hemodynamically stable, saturating well room air, and are neurologically intact. On physical examination of the patient she does have hypertonicity of the paraspinal musculature in the lumbar region. She has no tenderness of the C, T, or L-spine. She has 5 out of 5 strength in her bilateral upper and lower extremities. She has normal sensation in all terminal nerve distributions of the bilateral lower extremities. Her patellar reflexes are 2+ bilaterally. Heart and lungs are clear to auscultation. She is mentating appropriately with a GCS of 15. Notably, the patient's mucous membranes are very dry and her skin is also very dry. She tells me that she has not been drinking very well over the last couple of days simply because she just has not felt like it. She is tachycardic, which is likely due to dehydration. Differential diagnosis includes muscle spasms, electrolyte derangement, acute kidney injury, rhabdomyolysis, dehydration, pyelonephritis, among others. Initial workup consisted of hematologic labs as well as a urinalysis. We have provided the patient with 1500 mg of Robaxin for muscle relaxation as well as 1 L of lactated Ringer's given how dry appearing she has on exam. Labs were personally interpreted by me and demonstrate findings of hypokalemia. Kidney function appears relatively stable from prior so I am not concerned about acute kidney injury at this time. I have replaced the patient's potassium with 40 mEq of oral potassium chloride. On repeat assessment of the patient I have informed her that her potassium is low and I have also reassessed her symptoms. 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 However, she states that over the course of the last 5 days she has not felt like getting out of bed much so she has not taken this medication. This likely explains her hypokalemia as well as her muscle spasms. Following administration of fluids, she does appear more hydrated. She was tachycardic on arrival and her tachycardia has now resolved. I have personally gotten the patient up out of bed and ambulated with the patient. She is able to walk, but she subjectively states that she is not ambulating with her normal gait as she fears that if she does ambulate normally she will experience back spasms again. She was able to walk out into the garner and back to the bed. She tells me she has access to a walker at home. I have asked her to use the walker for extra stability while she deals with these muscle spasms. I have also asked that she continue taking her potassium supplement as prescribed, and to stop taking Tizanidine and start taking Robaxin. She acknowledges understanding. All questions answered and all parties agreeable with the decision to discharge home. Critical Care Critical Care Time Critical Care Time: No
[2025-03-01] MEDS: LACTATED RINGERS 1000ML 1,000 ML 999 ML IV (14:18)
[2025-03-01] MEDS: POTASSIUM CHLORIDE 20MEQ TAB 40 MEQ PO (14:19)
[2025-03-01] MEDS: METHOCARBAMOL 500MG TABLET 1500 MG PO (14:20)
[2025-03-01 14:22] LABS: RBC Morphology Normal; Total Cells Counted 100
[2025-03-01 14:30] VITALS: BP 170/81; PULSE 87; O2SAT 94
[2025-03-01 15:01] VITALS: BP 156/86; PULSE 83; O2SAT 95
[2025-03-01 15:26] LABS: Microscopic, Urine URINE MICROSCOPIC (MICROSCOPIC)
[2025-03-01 16:17] LABS: Color,Urine YELLOW (Yellow); Glucose,Urine (UA) Negative (Negative); Ketones,Urine Negative (Negative); Leukocyte Esterase,Urine Negative (Negative); PH,Urine 6.0 (5.0-8.5); Protein,Urine 2+ (Negative); Specific Gravity, Urine 1.025 (1.005-1.030); Urobilinogen,Urine 0.2 EU/dl (0.2)
[2025-03-01 16:23] LABS: Bilirubin,Urine 1+ (Negative)
[2025-03-01] MEDS: LIDOCAINE 5% TRANSDERMAL PATCH 1 EACH TD (16:47)
[2025-03-01] MEDS: ACETAMINOPHEN 500MG TAB 1000 MG PO (16:47)
[2025-03-01 18:22] VITALS: BP 192/88; PULSE 88; RESP 16; TEMP 37.1; O2SAT 98
[2025-03-01 19:25] LABS: Bacteria,Urine 1+ /lpf
[2025-03-01 19:26] LABS: Hyaline Casts,Urine OCC #/lpf (0); Mucus,Urine Trace /lpf
== END 2025-03-01 18:22 | disposition home or self-care (01) ==
PROVIDERS: Emergency Provider Student in an Organized Health Care Education/Training Program; PCP Family Medicine
DX: M62.830 Muscle spasm of back (principal); E87.6 Hypokalemia; R00.0 Tachycardia, unspecified; M54.50 Low back pain, unspecified; R63.8 Other symptoms and signs concerning food and fluid intake
CPT/HCPCS: 80053; 81001; 82550; 85007; 85025; 85027; 96360; 99284; J7120

== ENCOUNTER 2025-03-05 14:28 | Observation (INO) | payer MEDICARE, SELFPAY ==
--- OUTSIDE RECORDS SUMMARY | 2025-01-19 11:15 | XMS_ITS ---
Author Organization [facility] Address [address] [place] [id number] Care Team Providers Care Sterile Proc Tech Name Role Phone Unique Pendleton Primary Care Provider [phone] Allergies Allergen (clinical drug ingredient) Drug/Non Drug [...] 01/19/2025 Encounters Encounter Location Date Provider Diagnosis [facility] [facility] [address] [phone] 01/19/2025 R Mono Pendleton Acute left ankle [...] ge:84 Y S ex:Female Date:01/19/2025 Address:[id number] Subjective: * Chief Complaints: * 1 . [...] czema - L30.9 ? 3 . B [place] 21.0-21.9, adult - Z68.21 Plan: * Treatment: Notes: Recommend compression socks??2.?Eczema? Start Mometasone Furoate Cream, 0.1 %, 1 application, Externally, Once a day, 15 gm.?? * Procedure Codes: G 2211 Complex e/m visit add on, G3420 BMI<30 AND >=22 CALC & DOCU, G7361 BP SCR PRFRM RCMDD DEFIND SCR INTVL, G9046 MOST RECENT SYSTOLIC BP < 140MM HG, G8754 MOST RECENT DIASTOLIC BP < 90MM HG, 1036F TOBACCO NON-USER * Follow Up: v ia phone to report test results * Images: Billing Information: * Visit Code: 61776 Office Visit, Est Pt., Level 3. * Procedure Codes: G2211 Complex e/m visit add on. G8420 BMI<30 AND >=22 CALC & DOCU. G8783 BP SCR PRFRM RCMDD DEFIND SCR INTVL. G8752 MOST RECENT SYSTOLIC BP < 140MM HG. G8754 MOST RECENT DIASTOLIC BP < 90MM HG. 1036F TOBACCO NON-USER. * Electronic signature of Unique Pendleton MD on 03/05/2025 at 02:36 PM EDT Sign off status: Pending * Provider: Unique Pendleton M.D. Date: 0 01/19/2025 Generated for Osmar gilbert/Nicolle/Crystalitting on: 0 03/05/2025 02:36 PM EDT History and Physical Notes * Examination Category Sub-Category Detail Notes Category Not es General Examination Extremities: There is mil d to moderate swelling and tenderness over the left distal fibula and lateral malleolus. Range of motion ankle is nearly full with no pain.
--- OUTSIDE RECORDS SUMMARY | 2025-01-28 13:45 | XMS_ITS | Encounter Summary ---
Author Organization [facility] Address [address] [place] [address] Care Team Providers Care Dentistry Professor Name Role Phone Sal Mar MD Unavailable [phone] Edson Pendleton MD Primary Care Provider [phone] Reason for Visit * Reason Comments Follow-up Encounter Details Date Type Department Care Team (Late st Contact Info) Description 01/28/2025 1:45 PM EDT Office Visit [facility] [address] [place] [address] Sal Mar MD [address] [address] Iron deficiency anemia due to [...] difficulty in coming all the way the [place]. Current Outpatient Medications: benazepril-hydroCHLOROthiazide [...] recommendation of the National Kidney Foundation and [place] [employer] of Nephrology. This calculation has not [...] documented as of this encounter Care Teams Dentistry Professor Relationship Specialty Start Date End Date Edson Pendleton MD [address] [place] [address] PCP - General 10/21/23 Sal Mar MD [address] [place] [address] Medical Oncologist Hematology and Oncology 10/16/23 documented as of this encounter
--- OUTSIDE RECORDS SUMMARY | 2025-02-04 14:00 | XMS_ITS | Encounter Summary ---
Author Organization [facility] Address [address] [place] [address] Care Team Providers Care Linen Attendant Name Role Phone Sal Mar MD Unavailable [phone] Edson Pendleton MD Primary Care Provider [phone] Reason for Visit * Episode Based Medications (Routine) - Authorized Specialty Diagnoses / Procedures Referred By Contac t Referred To Contact Diagnoses Stage 3 chronic kidney disease, unspecified whether stage 3a or 3b CKD (CMS/HCC) Crohn's disease of colon with complication (CMS/HCC) Iron deficiency 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 blood loss Sal Mar MD [address] [place] [id number] Phone: tel: fax: aSl Mar MD [address] [place] [address] Phone: tel: fax: Referral ID Status Reason Start Date Expiration Date V isits Requested Visits Authorized [id number] Authorized 02/04/2025 08/06/2026 1 2 Encounter Details Date Type Department Care Team (Late st Contact Info) Description 02/04/2025 2:00 PM EDT Infusion [facility] [address] [place] [address] Iron deficiency 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 blood loss (Primary Dx); Stage 3 chronic kidney disease, unspecified whether stage 3a or 3b CKD (CMS/HCC); Crohn's disease of colon with complication ([facility]/HCC) Social History Tobacco Use Types Packs/Day Years Used Date Smoking Tobacco: Former Cigarettes Q uit: 1975 Smokeless Tobacco: Never Tobacco Cessation:Counseling Given: Not Answered Comments Unknown Sex and Gender Information Value Date Recorded Sex Assigned at Female 06/10/2023 9:48 PM EST Legal Sex Female 7:40 PM EDT Gender Identity Female 06/10/2023 9:48 PM EST Sexual Orientation Straight 06/10/2023 9: 48 PM EST documented as of this encounter Last Filed Vital Signs Vital Sign Reading Time Taken Comments Blood Pressure 163/88 02/04/2025 4:12 PM EDT Pulse 81 02/04/2025 2:28 PM EDT Temperature 36.7 C (98 F) 02/04/2025 2:28 PM EDT Respiratory Rate 16 02/04/2025 2:28 PM EDT Oxygen Saturation 94% 02/04/2025 2:28 PM EDT Inhaled Oxygen Concentration - - Weight 56.2 kg (123 lb 14.4 oz) 02/04/2025 2:28 PM EDT Height - - Body Mass Index 21.95 01/28/2025 1:49 PM EDT documented in this encounter Functional Status * Calculated C-SSRS Risk Score (Lifetime/Recent) Answer Date of Assessment Author No Risk Indicated 02/04/2025 2:55 PM EDT Monique Lucio RN * Question Answer Date of Assessment Author 1. Wish to be (Past 1 Month) No 02/04/2025 2:55 PM EDT Monique Lucio RN 2. Non-Specific Active Suici brandy Thoughts (Past 1 Month) No 02/04/2025 2:55 PM EDT Rene Lucio RN 6. Suicidal Behavior (Lifetime) No 2:55 PM EDT Monique Lucio RN documented as of this encounter Plan of Treatment Not on file documented as of this encounter Visit Diagnoses Diagnosis Iron deficiency 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 blood loss- Primary Iron deficiency anemia secondary to blood loss (chronic) Stage 3 chronic kidney disease, unspecified whether stage 3a or 3b CKD (CMS/HCC) Crohn's disease of colon with complication (CMS/[facility]) documented in this encounter Administered Medications Inactive Administered Medications - up to 3 most recent administrations Medication Order MAR Action Action Date Dose Rate Site acetaminophen (Tylenol) tablet 650 mg 650 mg, Oral, Once, 1 dose, On Minerva 02/04/25 at 1500, RoutineIndications:Stage 3 chronic kidney disease, unspecified whether stage 3a or 3b CKD (CMS/HCC),Crohn's disease of colon with complication (CMS/HCC),Iron deficiency 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 blood loss Given 02/04/2025 2:52 PM EDT 650 mg diphenhydrAMINE (Benadryl) tablet 25 mg 25 mg, Oral, Once, 1 dose, On Minerva 02/04/25 at 1500, RoutineIndications:Stage 3 chronic kidney disease, unspecified whether stage 3a or 3b CKD (CMS/HCC),Crohn's disease of colon with complication (CMS/HCC),Iron deficiency 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 blood loss Given 02/04/2025 2:52 PM EDT 25 mg ferumoxytol (Feraheme) 510 mg in sodium chloride 0.9 % 100 mL IVPB 510 mg, Intravenous, Once, 1 dose, On Minerva 02/04/25 at 1500, Administer over 15 Minutes, RoutineIndications:Stage 3 chronic kidney disease, unspecified whether stage 3a or 3b CKD (CMS/HCC),Crohn's disease of colon with complication (CMS/HCC),Iron deficiency 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 blood loss New Bag 02/04/2025 3:25 PM EDT 510 mg 508 mL/hr sodium chloride 0.9 % flush 10 mL 10 mL, Intravenous, As needed, Starting on Minerva 02/04/25 at 1443, Until Minerva 02/04/25 at 1838, Routine, line care, Flush Before and After EVERY dose of medication.Indications:Iron deficiency 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 blood loss Given 02/04/2025 3:22 PM EDT 10 mL sodium chloride 0.9 % flush 20 mL 20 mL, Intravenous, Every 1 hour PRN, Starting on Minerva 02/04/25 at 1443, Until Minerva 02/04/25 at 1838, Routine, line care, After blood draws and if any blood seen in tubing.Indications:Iron deficiency 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 blood loss Given 02/04/2025 4:16 PM EDT 20 mL documented in this encounter Additional Health Concerns Assessment Noted Time A fall risk assessment has been complete d for the patient 02/04/2025 2:33 PM EDT documented as of this encounter Care Teams Linen Attendant Relationship Specialty Start Date End Date Edson Pendleton MD [address] [place] [address] PCP - General 10/21/23 Sal Mar MD [address] [place] [address] Medical Oncologist Hematology and Oncology 10/16/23 documented as of this encounter
--- OUTSIDE RECORDS SUMMARY | 2025-02-16 14:00 | XMS_ITS | Encounter Summary ---
Author Organization [facility] Address [address] [place] [address] Care Team Providers Care Liquor Tester Name Role Phone Sal Mar MD Unavailable [phone] Edson Pendleton MD Primary Care Provider [phone] Reason for Visit * Reason Comments OP Infusion * Episode Based Medications (Routine) - Authorized Specialty Diagnoses / Procedures Referred By Contac t Referred To Contact Diagnoses Stage 3 chronic kidney disease, unspecified whether stage 3a or 3b CKD (CMS/HCC) Crohn's disease of colon with complication (CMS/HCC) Iron deficiency 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 blood loss Sal Mar MD [address] [place] [phone] Phone: tel: fax: Sal Mar MD [address] [place] [phone] Phone: tel: fax: Referral ID Status Reason Start Date Expiration Date V isits Requested Visits Authorized [id number] Authorized 02/04/2025 08/06/2026 1 2 Encounter Details Date Type Department Care Team (Late st Contact Info) Description 02/16/2025 2:00 PM EDT Infusion [facility] at [facility] [address] [place] [address] Iron deficiency anemia due to [...] Sign Reading Time Taken Comments Blood Pressure 159/75 02/16/2025 2:00 PM EDT Pulse 78 02/16/2025 2:00 PM EDT Temperature - - Respiratory Rate - - Oxygen Saturation 97% 02/16/2025 2:00 PM EDT Inhaled Oxygen Concentration - - Weight 56.4 kg (124 lb 5.4 oz) 02/16/2025 2:00 P M EDT Height 160 cm (5' 3 ) 02/16/2025 2:00 PM EDT Body Mass Index 22.03 02/16/2025 2:00 PM EDT documented in this encounter Functional Status * Calculated C-SSRS Risk Score (Lifetime/Recent) Answer Date of Assessment Author No Risk Indicated 02/16/2025 2:00 PM EDT Jessa Rinaldi RN * Question Answer Date of Assessment Author 1. Wish to be (Past 1 Month) No 025 2:00 PM EDT Jessa Rinaldi RN 2. Non-Specific Active Suici brandy Thoughts (Past 1 Month) No 02/16/2025 2:00 PM EDT Jessa Rinaldi RN 6. Suicidal Behavior (Lifetime) No 2:00 PM EDT Jessa Rinaldi RN documented as of this encounter Plan of Treatment Not on file documented as of this encounter Visit Diagnoses Diagnosis Iron deficiency 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 blood loss- Primary Iron deficiency anemia secondary to blood loss (chronic) Crohn's disease of colon with complication (CMS/HCC) Stage 3 chronic kidney disease, unspecified whether stage 3a or 3b CKD (CMS/HCC) documented in this encounter Administered Medications Inactive Administered Medications - up to 3 most recent administrations Medication Order MAR Action Action Date Dose Rate Site acetaminophen (Tylenol) tablet 650 mg 650 mg, Oral, Once, 1 dose, On Sat02/16/25 at 1430, RoutineIndications:Iron deficiency 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 blood loss,Crohn's disease of colon with complication (CMS/HCC),Stage 3 chronic kidney disease, unspecified whether stage 3a or 3b CKD (CMS/HCC) Given 02/16/2025 2:20 PM EDT 650 mg diphenhydrAMINE (Benadryl) tablet 25 mg 25 mg, Oral, Once, 1 dose, On Sat02/16/25 at 1430, RoutineIndications:Iron deficiency 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 blood loss,Crohn's disease of colon with complication (CMS/HCC),Stage 3 chronic kidney disease, unspecified whether stage 3a or 3b CKD (CMS/HCC) Given 02/16/2025 2:20 PM EDT 25 mg ferumoxytol (Feraheme) 510 mg in sodium chloride 0.9 % 100 mL IVPB 510 mg, Intravenous, Once, 1 dose, On Sat02/16/25 at 1430, Administer over 15 Minutes, RoutineIndications:Iron deficiency 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 blood loss,Crohn's disease of colon with complication (CMS/HCC),Stage 3 chronic kidney disease, unspecified whether stage 3a or 3b CKD (CMS/HCC) New Bag 02/16/2025 2:55 PM EDT 510 mg 508 mL/hr sodium chloride 0.9 % flush 10 mL 10 mL, Intravenous, As needed, Starting on Sat02/16/25 at 1514, Until Sat02/16/25 at 1755, Routine, line care, Flush Before and After EVERY dose of medication.Indications:Iron deficiency 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 blood loss Given 02/16/2025 2:15 PM EDT 10 mL sodium chloride 0.9 % flush 20 mL 20 mL, Intravenous, Every 1 hour PRN, Starting on Sat02/16/25 at 1514, Until Sat02/16/25 at 1755, Routine, line care, After blood draws and if any blood seen in tubing.Indications:Iron deficiency 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 blood loss Given 02/16/2025 3:10 PM EDT 20 mL documented in this encounter Additional Health Concerns Assessment Noted Time A fall risk assessment has been complete d for the patient 02/16/2025 2:28 PM EDT documented as of this encounter Care Teams Liquor Tester Relationship Specialty Start Date End Date Edson Pendleton MD [address] [place] [address] PCP - General 10/21/23 Sal Mar MD [address] [place] [address] Medical Oncologist Hematology and Oncology 10/16/23 documented as of this encounter
--- OUTSIDE RECORDS SUMMARY | 2025-02-25 09:45 | XMS_ITS ---
Author Organization [facility] Address [address] [place] [phone] Care Team Providers Care Chairman And Ceo Name Role Phone Unique Pendleton Primary Care Provider REASON FOR VISIT back pain Encounters Encounter Location Date Provider Diagnosis [facility] [address] [place] [phone] 02/25/2025 Unique Pendleton Plan Of Treatment No Information Progress Notes * FAISALNATHANIELCHERYLDOB:1940 (84 yo F)Acc No.nb bmDOS:02/25/2025 Progress Notes Patient: PARVIN CHAIREZ Account Number:nb bm Provider: Unique Pendleton M.D. :1940 A ge:84 Y S ex:Female Date:02/25/2025 Address[address], [place] Subjective: * Chief Complaints: * 1 . Back pain. * Medical History: Objective: * Vitals: Assessment: Plan: * Treatment: * Images: Billing Information: * Visit Code: * Procedure Codes: * Electronic signature of Unique Pendleton MD on 03/05/2025 at 02:36 PM EDT Sign off status: Pending * Provider: Unique Pendleton M.D. Date: 02/25/2025 Generated for Printi ng/Faxing/eTransmitting on: 03/05/2025 02:36 PM EDT
--- OUTSIDE RECORDS SUMMARY | 2025-03-04 05:45 | XMS_ITS ---
[facility] Address [address] [place] [id number] Care Team Providers Care Metal Pickling Equipment Operator Name Role Phone Unique Pendleton Primary [...] dehydration Encounters Encounter Location Date [facility] [address] [facility] [address] [place] [id number] 03/04/2025 Unique Pendleton Plan Of Treatment No Information Progress Notes * PARVIN MALONEDOB:1940 (84 yo F)Acc No.nb bmDOS:03/04/2025 Progress Notes Patient: PARVIN CHAIREZ Account Number:nb bm Provider: Unique Pendleton M.D. :1940 A ge:84 Y S ex:Female Date:03/04/2025 Address:[address], [place] Subjective: * Chief Complaints: * 1 . [...] * Hospitalization/Major Diagno stic Procedure: H ypertension- [facility] ER 12/28/2017. * Family History: F [...] Pending * Provider: Unique Pendleton M.D. Date: 03/04/2025 Generated for Osmar gilbert/Nicolle/Arthur on: 03/05/2025 02:36 PM EDT
[2025-03-05] VITALS (10 sets, daily range): BP systolic 141–173; BP diastolic 83–104; PULSE 91–110; RESP 12–92; TEMP 36.6–36.7; O2SAT 96–100; BMI 22.1; BMI 44.4
--- OUTSIDE RECORDS SUMMARY | 2025-03-05 14:34 | XMS_ITS | Encounter Summary ---
Author Organization [facility] Address [address] [place] [address] Care Team Providers Care Electric Arc Welder Name Role Phone Sal Mar MD Unavailable [phone] Edson Pendleton MD Primary Care Provider [phone] Encounter Details Date Type Department Care Team [...] documented as of this encounter Care Teams Electric Arc Welder Relationship Specialty Start Date End Date Edson Pendleton MD [address] [place] [id number] PCP - General 10/21/23 Sal Mar MD [address] [id number] Medical Oncologist Hematology and Oncology 10/16/23 documented as of this encounter
--- OUTSIDE RECORDS SUMMARY | 2025-03-05 14:34 | XMS_ITS | Encounter Summary ---
Author Organization [facility] Address [address] [place] [address] Care Team Providers Care Fork Lift Technician Name Role Phone System, Provider Not In MD Primary Care Provider Unavailable Sal Mar MD Unavailable [phone] Edson Pendleton MD Primary Care Provider [phone] Encounter Details Date Type Department Care Team (Late st Contact Info) Description 01/03/2022 Orders Only [facility] [address] [place] [address] Fidel Vasquez MD [address], [place] [id number] Social History Tobacco Use Types Packs/Day Years [...] Vitamin B12 >2,000(H) 232 - 1,245 pg/mL [facility] 01/03/2022 4:15 PM EDT 01/03/2022 5:14 PM EDT Fidel Vasquez MD LAB BLOOD ORDERABLES Final R esult [facility] [address] [place] [address], documented in this encounter Visit Diagnoses Not on filedocumented in this encounter Care Teams Fork Lift Technician Relationship Specialty Start Date End Date System, Provider Not In, [address] [place] [address] PCP - General Family Medicine 07/15/21 10/20/23 Edson Pendleton MD [address] [place] [address] PCP - General 10/21/23 Sal Mar MD [address] [place] [address] Medical Oncologist Hematology and Oncology 10/16/23 documented as of this encounter
--- OUTSIDE RECORDS SUMMARY | 2025-03-05 14:34 | XMS_ITS | Encounter Summary ---
Author Organization [facility] Address [address] [place] [address] Care Team Providers Care Career Agent Name Role Phone System, Provider Not In MD Primary Care Provider Unavailable Sal Mar MD Unavailable [phone] Edson Pendleton MD Primary Care Provider [phone] Encounter Details Date Type Department Care Team (Late st Contact Info) Description 01/08/2022 Orders Only [facility] [address] [place] [address] Fidel Vasquez MD [address] [place], [place] [id number] Social History Tobacco Use Types Packs/Day Years [...] PM EDT) External Calprotectin 30 mcg/g [facility] Comment: Reference Range: <50 Normal 50-120 Borderline >120 Elevated Calprotectin in Crohn's disease and ulcerative colitis can be five to several thousand times above the reference population (50 mcg/g or less). Levels are usually 50 mcg/g or less in healthy patients and with irritable bowel syndrome. Repeat testing in 4-6 weeks is suggested for borderline values. TEST PERFORMED AT: [facility] [address] [place] [address] LI CALERO MD,PHD,SEBLE 01/08/2022 12:3 8 PM EDT 01/08/2022 12:45 PM EDT Fidel Vasquez MD LAB BODY FLUIDS AND STOOLS O RDERABLES Final Result Performing Organization Address City/State/[facility] Co de Phone Number [facility] [address] [place] [address], documented in this encounter Visit Diagnoses Not on filedocumented in this encounter Care Teams Career Agent Relationship Specialty Start Date End Date System, Provider Not In, [address] [place] [address] PCP - General Family Medicine 07/15/21 10/20/23 Edson Pendleton MD [address] [facility] [address] [place] [address] PCP - General 10/21/23 Sal Mar MD [address] [place] [address] Medical Oncologist Hematology and Oncology 10/16/23 documented as of this encounter
--- OUTSIDE RECORDS SUMMARY | 2025-03-05 14:34 | XMS_ITS | Encounter Summary ---
Author Organization [facility] Address [address] [place] [address] Care Team Providers Care Shell Molding Roller Blast Operator Name Role Phone Sal Mar MD Unavailable [phone] Edson Pendleton MD Primary Care Provider [phone] Encounter Details Date Type Department Care Team (Late st Contact Info) Description 01/28/2025 Orders Only [facility] at [address] [address] Carrie Chavira, PharmD Inpatient Pharmacy [address] [place] [address] Social History Tobacco Use Types Packs/Day Years [...] documented as of this encounter Care Teams Shell Molding Roller Blast Operator Relationship Specialty Start Date End Date Edson Pendleton MD [address] [place] [address] PCP - General 10/21/23 Sal Mar MD [address] [place] [address] Medical Oncologist Hematology and Oncology 10/16/23 documented as of this encounter
--- OUTSIDE RECORDS SUMMARY | 2025-03-05 14:34 | XMS_ITS | Encounter Summary ---
Author Organization [facility] Address [address] [place] [address] Care Team Providers Care Administration Specialist Name Role Phone Sal Mar MD Unavailable [phone] Edson Pendleton MD Primary Care Provider [phone] Reason for Visit * Reason Onset Date Comments Requesting Appt 01/21/2025 Encounter Details Date Type Department Care Team (Late st Contact Info) Description 01/21/2025 Telephone [facility] [address] [place] [address] Sal Mar MD [address] [address] Requesting Appt Social History Tobacco [...] documented as of this encounter Care Teams Administration Specialist Relationship Specialty Start Date End Date Edson Pendleton MD [address] [place] [address] PCP - General 10/21/23 Sal Mar MD [address] [place] [address] Medical Oncologist Hematology and Oncology 10/16/23 documented as of this encounter
--- OUTSIDE RECORDS SUMMARY | 2025-03-05 14:34 | XMS_ITS | Encounter Summary ---
Author Organization [facility] Address [address] [place] [address] Care Team Providers Care Tubing Machine Operator Name Role Phone System, Provider Not In MD Primary Care Provider Unavailable Sal Mar MD Unavailable [phone] Edson Pendleton MD Primary Care Provider [phone] Encounter Details Date Type Department Care Team (Late st Contact Info) Description 01/03/2022 Orders Only [facility] @ [facility] [address] [place] [address] Fidel Vasquez MD [address] [place], [place] [id number] Social History Tobacco Use Types Packs/Day Years [...] 6-TGN 212(L) 235 - 400 pmol/8x10( 8)RBC [facility] Comment: This test was developed and its analytical performance characteristics have been determined by [employer]. It has not been cleared or approved by the FDA. This assay has been validated pursuant to the CLIA regulations and is used for clinical purposes. EXTERNAL 6-MMPN <500 <5700 pmol/8x10( 8)RBC [facility] Comment: These results are useful in [...] analytical performance characteristics have been determined by [employer]. It has not been cleared or approved by the FDA. This assay has been validated pursuant to the CLIA regulations and is used for clinical purposes. TEST PERFORMED AT: [facility] [address] [address] MICHAELA FRANCIS MD 01/03/2022 4:15 PM EDT 01/03/2022 5:15 PM EDT us Fidel Vasquez MD LAB BLOOD ORDERABLES Final R esult [facility] [address] [place] [address], documented in this encounter Visit Diagnoses Not on filedocumented in this encounter Care Teams Tubing Machine Operator Relationship Specialty Start Date End Date System, Provider Not In, [address] [place] [address] PCP - General Family Medicine 07/15/21 10/20/23 Edson Pendleton MD [address] [place] [address] PCP - General 10/21/23 Sal Mar MD [address] [place] [address] Medical Oncologist Hematology and Oncology 10/16/23 documented as of this encounter
--- OUTSIDE RECORDS SUMMARY | 2025-03-05 14:34 | XMS_ITS | Encounter Summary ---
Author Organization [facility] Address [address] [place] [address] Care Team Providers Care Overedger Name Role Phone Sal Mar MD Unavailable [phone] Edson Pendleton MD Primary Care Provider [phone] Encounter Details Date Type Department Care Team [...] documented as of this encounter Care Teams Overedger Relationship Specialty Start Date End Date Edson Pendleton MD [address] [place] [id number] PCP - General 10/21/23 Sal Mar MD [address] [place] [id number] Medical Oncologist Hematology and Oncology 10/16/23 documented as of this encounter
--- OUTSIDE RECORDS SUMMARY | 2025-03-05 14:34 | XMS_ITS | Encounter Summary ---
Author Organization [facility] Address [address] [place] [address] Care Team Providers Care Bench Shear Operator Name Role Phone System, Provider Not In MD Primary Care Provider Unavailable Sal Mar MD Unavailable [phone] Edson Pendleton MD Primary Care Provider [phone] Encounter Details Date Type Department Care Team (Late st Contact Info) Description 01/08/2022 Orders Only [facility] @ [facility] [address] [place] [address] Fidel Vasquez MD [address] [place], [place] [id number] Social History Tobacco Use Types Packs/Day Years [...] EDT) EXTERNAL GI PANEL SEE BELOW LE [facility] External Campylobacter species by PCR Negative Negative [facility] External Clostridioides (Clostridium) Difficile Toxin Negative Negative [facility] External Plesiomonas shigelloides Negative Negative [facility] EXTERNAL SALMONELLA SPP Negative Negative [facility] External Vibrio Negative Negative [facility] External Vibrio cholerae Negative Negative [facility] EXTERNAL YERSINIA SPECIES Negative Negative [facility] External Enteroaggregative E. Coli Negative Negative [facility] External Enteropathogenic E. coli Negative Negative [facility] External Enterotoxigenic E. coli LT/ST Negative Negative [facility] External Wekjl-Satdd-Lqermfha g E. coli Negative Negative [facility] External Shigella/Enteroinvas sadiq E. coli Negative Negative [facility] EXTERNAL CRYPTOSPORIDIUM SPECIES Negative Negative [facility] External Cyclospora cayetanensis Negative Negative [facility] External Entamoeba histolytica Negative Negative [facility] External Giardia lamblia Negative Negative [facility] External Adenovirus F 40/41 Negative Negative [facility] External Astrovirus Negative Negative [facility] EXTERNAL NOROVIRUS GI/GII Negative Negative [facility] External Rotavirus Negative Negative [facility] External Sapovirus Negative Negative [facility] Comment: ADDITIONAL INFORMATION This assay is performed using the FDA-cleared [employer]Array GI Panel ([employer] TEST PERFORMED AT: [facility] [address] [place] [id number] SAL HARRIS II, MD,PHD 01/08/2022 12:3 8 PM EDT 01/08/2022 12:45 PM EDT us Fidel Vasquez MD LAB MICROBIOLOGY - GENERAL O RDERABLES Final Result [facility] [address] [place] [address], documented in this encounter Visit Diagnoses Not on filedocumented in this encounter Care Teams Bench Shear Operator Relationship Specialty Start Date End Date System, Provider Not In, MD [address] [place] [address] PCP - General Family Medicine 07/15/21 10/20/23 Edson Pendleton MD [address] [facility] [address] [place] [address] PCP - General 10/21/23 Sal Mar MD [address] [place] [address] Medical Oncologist Hematology and Oncology 10/16/23 documented as of this encounter
--- OUTSIDE RECORDS SUMMARY | 2025-03-05 14:34 | XMS_ITS | Encounter Summary ---
Author Organization [facility] Address [address] [place] [address] Care Team Providers Care Wire Stitcher Operator Name Role Phone System, Provider Not In MD Primary Care Provider Unavailable Sal Mar MD Unavailable [phone] Edson Pendleton MD Primary Care Provider [phone] Encounter Details Date Type Department Care Team (Late st Contact Info) Description 01/03/2022 Orders Only [facility] @ [facility] [address] [place] [address] Fidel Vasquez MD [address] [place], [place] [id number] Social History Tobacco Use Types Packs/Day Years [...] External WBC 4.1 3.8 - 10.8 K/uL [facility] External Red Blood Cell (RBC) 3.72(L) 3.80 - 5.20 M/uL [facility] External Hemoglobin 11.6(L) 12.0 - 16.0 G/DL [facility] External Hematocrit 33.4(L) 35.0 - 47.0 % [facility] External MCV 90 80 - 100 fL [facility] External MCH 31 26 - 35 PG [facility] External MCHC 35 32 - 36 G/DL [facility] External RDW 15.9(H) 11.0 - 15.0 % [facility] External Mean Platelet Volume 7.5 6.2 - 10.5 fL [facility] External Platelets 223 130 - 400 K/uL [facility] External Neutrophil# 3.0 1.6 - 8.4 K/uL [facility] External Lymphocyte# 0.7 0.4 - 5.1 K/uL [facility] External Absolute Monocyte (Abs Maui) 0.3 0.0 - 1.2 K/uL [facility] External Eosinophils# 0.1 0.0 - 0.8 K/uL [facility] External Baso# 0.0 0.0 - 0.3 K/uL [facility] External Neutrophils % 71.7 42.0 - 78.0 % [facility] External Lymphocyte % 16.1 11.0 - 47.0 % [facility] External Monocyte % 7.9 0.0 - 11.0 % [facility] External Eosinophil% 3.3 0.0 - 7.0 % [facility] External Basophil % 1.0 0.0 - 3.0 % [facility] External Nucleated RBC%-Auto 0.1 0.0 - 0.9 % [facility] External Nucleated RBC Absolute 0.00 Not Estab. K/uL [facility] 01/03/2022 4:15 PM EDT 01/03/2022 5:14 PM EDT us Fidel Vasquez MD LAB BLOOD ORDERABLES Final R esult [facility] [address] [place] [id number], documented in this encounter Visit Diagnoses Not on filedocumented in this encounter Care Teams Wire Stitcher Operator Relationship Specialty Start Date End Date System, Provider Not In, [address] [place] [address] PCP - General Family Medicine 07/15/21 10/20/23 Edson Pendleton MD [address] [place] [address] PCP - General 10/21/23 Sal Mar MD [address] [place] [address] Medical Oncologist Hematology and Oncology 10/16/23 documented as of this encounter
--- OUTSIDE RECORDS SUMMARY | 2025-03-05 14:34 | XMS_ITS | Encounter Summary ---
Author Organization [facility] Address [address] [place] [address] Care Team Providers Care Clinical Education Consultant Name Role Phone Sal Mar MD Unavailable [phone] Edson Pendleton MD Primary Care Provider [phone] Encounter Details Date Type Department Care Team [...] documented as of this encounter Care Teams Clinical Education Consultant Relationship Specialty Start Date End Date Edson Pendleton MD [address] [place] [address] PCP - General 10/21/23 Sal Mar MD [address] [place] [address] Medical Oncologist Hematology and Oncology 10/16/23 documented as of this encounter
--- OUTSIDE RECORDS SUMMARY | 2025-03-05 14:34 | XMS_ITS | Encounter Summary ---
Author Organization [facility] Address [address] [place] [address] Care Team Providers Care Fishery Biologist Name Role Phone System, Provider Not In MD Primary Care Provider Unavailable Sal Mar MD Unavailable [phone] Edson Pendleton MD Primary Care Provider [phone] Encounter Details Date Type Department Care Team (Late st Contact Info) Description 01/08/2022 Orders Only [facility] @ [facility] [address] [place] [address] Fidel Vasquez MD [address] [place], [place] [id number] Social History Tobacco Use Types Packs/Day Years [...] PM EDT) External Pancreatic Elastase 287 mcg/g [facility] Comment: Adult and Pediatric Reference Ranges for Pancreatic Elastase-1: Normal: >200 mcg/g Moderate Pancreatic Insufficiency: 100-200 mcg/g Severe Pancreatic Insufficiency: <100 mcg/g Elastase-1 (E-1) assay results are expressed in mcg/g, which represent mcg E1/g feces. It is not necessary to interrupt enzyme substitution therapy. TEST PERFORMED AT: [facility] [address] [place] [address] LI CALERO MD,PHD,SEBLE 01/08/2022 12:3 8 PM EDT 01/08/2022 12:45 PM EDT Fidel Vasquez MD LAB BODY FLUIDS AND STOOLS O RDERABLES Final Result [facility] [address] [place] [address], documented in this encounter Visit Diagnoses Not on filedocumented in this encounter Care Teams Fishery Biologist Relationship Specialty Start Date End Date System, Provider Not In, [address] [place] [address] PCP - General Family Medicine 07/15/21 10/20/23 Edson Pendleton MD [address] [facility] [address] [facility] [address] [place] [address] PCP - General 10/21/23 Sal Mar MD [address] [place] [address] Medical Oncologist Hematology and Oncology 10/16/23 documented as of this encounter
--- OUTSIDE RECORDS SUMMARY | 2025-03-05 14:34 | XMS_ITS | Encounter Summary ---
Author Organization [facility] Address [address] [place] [address] Care Team Providers Care Deck And Hull Assembler Name Role Phone System, Provider Not In MD Primary Care Provider Unavailable Sal Mar MD Unavailable [phone] Edson Pendleton MD Primary Care Provider [phone] Encounter Details Date Type Department Care Team (Late st Contact Info) Description 01/03/2022 Orders Only [facility] @ [facility] [address] [place] [address] Fidel Vasquez MD [address] [place], [place] [id number] Social History Tobacco Use Types Packs/Day Years [...] External Ferritin 169(H) 13 - 157 ng/mL [facility] 01/03/2022 4:15 PM EDT 01/03/2022 5:13 PM EDT us Fidel Vasquez MD LAB BLOOD ORDERABLES Final R esult [facility] [address] [place] [address], documented in this encounter Visit Diagnoses Not on filedocumented in this encounter Care Teams Deck And Hull Assembler Relationship Specialty Start Date End Date System, Provider Not In, [address] [place] [address] PCP - General Family Medicine 07/15/21 10/20/23 Edson Pendleton MD [address] [place] [address] PCP - General 10/21/23 Sal Mar MD [address] [place] [address] Medical Oncologist Hematology and Oncology 10/16/23 documented as of this encounter
--- OUTSIDE RECORDS SUMMARY | 2025-03-05 14:34 | XMS_ITS | Encounter Summary ---
Author Organization [facility] Address [address] [place] [address] Care Team Providers Care Reporting Consultant Name Role Phone Sal Mar MD Unavailable [phone] Edson Pendleton MD Primary Care Provider [phone] Encounter Details Date Type Department Care Team [...] documented as of this encounter Care Teams Reporting Consultant Relationship Specialty Start Date End Date Edson Pendleton MD [address] [place] [address] PCP - General 10/21/23 Sal Mar MD [address] [place] [address] Medical Oncologist Hematology and Oncology 10/16/23 documented as of this encounter
--- OUTSIDE RECORDS SUMMARY | 2025-03-05 14:34 | XMS_ITS | Encounter Summary ---
Author Organization [facility] Address [address] [place] [address] Care Team Providers Care Skiff Operator Name Role Phone System, Provider Not In MD Primary Care Provider Unavailable Sal Mar MD Unavailable [phone] Edson Pendleton MD Primary Care Provider [phone] Encounter Details Date Type Department Care Team (Late st Contact Info) Description 11/09/2021 Orders Only [facility] at [facility] [address] [place] [address] Sal Mar MD [address] [id number] Social History Tobacco Use Types Packs/Day Years [...] External Ferritin 9(L) 13 - 157 ng/mL [facility] 11/09/2021 3:53 PM EDT 11/09/2021 6:04 PM EDT Sal Mar MD LAB BLOOD ORDERABLES Final Res ult [facility] [address] [place] [address], documented in this encounter Visit Diagnoses Not on filedocumented in this encounter Care Teams Skiff Operator Relationship Specialty Start Date End Date System, Provider Not In, [address] [place] [address] PCP - General Family Medicine 07/15/21 10/20/23 Edson Pendleton MD [address] [place] [address] PCP - General 10/21/23 Sal Mar MD [address] [place] [address] Medical Oncologist Hematology and Oncology 10/16/23 documented as of this encounter
--- OUTSIDE RECORDS SUMMARY | 2025-03-05 14:35 | XMS_ITS | Encounter Summary ---
Author Organization [facility] Address [address] [place] [address] Care Team Providers Care Twister In Name Role Phone System, Provider Not In MD Primary Care Provider Unavailable Sal Mar MD Unavailable Edson Pendleton MD Primary Care Provider [phone] Encounter Details Date Type Department Care Team (Late st Contact Info) Description 08/10/2021 Orders Only [facility] @ [facility] [address] [place] [address] Fidel Vasquez MD [address] [place], [place] [phone] Social History Tobacco Use Types Packs/Day Years [...] External Ferritin 6(L) 13 - 157 ng/mL [facility] 08/10/2021 2:45 PM EST 08/10/2021 7:55 PM EST Fidel Vasquez MD LAB BLOOD ORDERABLES Final R esult [facility] [address] [place] [address], documented in this encounter Visit Diagnoses Not on filedocumented in this encounter Care Teams Twister In Relationship Specialty Start Date End Date System, Provider Not In, [address] [place] [address] PCP - General Family Medicine 07/15/21 10/20/23 Edson Pendleton MD [address] [place] [address] [address] [place] [address] PCP - General 10/21/23 Sal Mar MD [address] [place] [id number] Medical Oncologist Hematology and Oncology 10/16/23 documented as of this encounter
--- OUTSIDE RECORDS SUMMARY | 2025-03-05 14:35 | XMS_ITS | Encounter Summary ---
Author Organization [facility] Address [address] [place] [address] Care Team Providers Care Mid Level Net Developer Name Role Phone System, Provider Not In MD Primary Care Provider Unavailable Sal Mar MD Unavailable [phone] Edson Pendleton MD Primary Care Provider [phone] Encounter Details Date Type Department Care Team (Late st Contact Info) Description 11/09/2021 Orders Only [facility] at [facility] [address] [place] [address] Sal Mar MD [address] [phone] Social History Tobacco Use Types Packs/Day Years [...] External WBC 3.9 3.8 - 10.8 K/uL [facility] External Red Blood Cell (RBC) 3.18(L) 3.80 - 5.20 M/uL [facility] External Hemoglobin 9.5(L) 12.0 - 16.0 G/DL [facility] External Hematocrit 27.0(L) 35.0 - 47.0 % [facility] External MCV 85 80 - 100 fL [facility] External MCH 30 26 - 35 PG [facility] External MCHC 35 32 - 36 G/DL [facility] External RDW 15.0 11.0 - 15.0 % [facility] External Mean Platelet Volume 7.2 6.2 - 10.5 fL [facility] External Platelets 228 130 - 400 K/uL [facility] External Neutrophil# 2.9 1.6 - 8.4 K/uL [facility] External Lymphocyte# 0.6 0.4 - 5.1 K/uL [facility] External Absolute Monocyte (Abs Mower) 0.3 0.0 - 1.2 K/uL [facility] External Eosinophils# 0.1 0.0 - 0.8 K/uL [facility] External Baso# 0.0 0.0 - 0.3 K/uL [facility] External Neutrophils % 73.4 42.0 - 78.0 % [facility] External Lymphocyte % 16.4 11.0 - 47.0 % [facility] External Monocyte % 6.8 0.0 - 11.0 % [facility] External Eosinophil% 2.3 0.0 - 7.0 % [facility] External Basophil % 1.1 0.0 - 3.0 % [facility] External Nucleated RBC%-Auto 0.1 0.0 - 0.9 % [facility] External Nucleated RBC Absolute 0.00 Not Estab. K/uL [facility] 11/09/2021 3:53 PM EDT 11/09/2021 6:01 PM EDT us Sal Mar MD LAB BLOOD ORDERABLES Final Res ult [facility] [address] [place] [address], documented in this encounter Visit Diagnoses Not on filedocumented in this encounter Care Teams Mid Level Net Developer Relationship Specialty Start Date End Date System, Provider Not In, [address] [place] [address] PCP - General Family Medicine 07/15/21 10/20/23 Edson Pendleton MD [address] [place] [address] PCP - General 10/21/23 Sal Mar MD [address] [place] [address] Medical Oncologist Hematology and Oncology 10/16/23 documented as of this encounter
--- OUTSIDE RECORDS SUMMARY | 2025-03-05 14:35 | XMS_ITS | Encounter Summary ---
Author Organization [facility] Address [address] [place] [address] Care Team Providers Care Agricultural Appraiser Name Role Phone System, Provider Not In MD Primary Care Provider Unavailable Sal Mar MD Unavailable [phone] Edson Pendleton MD Primary Care Provider [phone] Encounter Details Date Type Department Care Team (Late st Contact Info) Description 11/09/2021 Orders Only [facility] [address] [place] [address] Sal Mar MD [address] [address] Social History Tobacco Use Types [...] External Iron 32(L) 37 - 145 ug/dL [facility] External Total Iron Binding Capacity 524(H) 250 - 450 ug/dL (calc) [facility] External Unsaturated Iron Binding Capacity 492(H) 112 - 347 ug/dL [facility] External Iron-Saturation% 6(L) 15 - 50 % (calc) [facility] 11/09/2021 3:53 PM EDT 11/09/2021 6:04 PM EDT us Sal Mar MD LAB BLOOD ORDERABLES Final Res ult [facility] [address] [place] [address], documented in this encounter Visit Diagnoses Not on filedocumented in this encounter Care Teams Agricultural Appraiser Relationship Specialty Start Date End Date System, Provider Not In, [address] [place] [address] PCP - General Family Medicine 07/15/21 10/20/23 Edson Pendleton MD [address] [place] [address] PCP - General 10/21/23 Sal Mar MD [address] [place] [id number] Medical Oncologist Hematology and Oncology 10/16/23 documented as of this encounter
--- OUTSIDE RECORDS SUMMARY | 2025-03-05 14:35 | XMS_ITS | Encounter Summary ---
Author Organization [facility] Address [address] [place] [address] Care Team Providers Care Ground Wood Supervisor Name Role Phone System, Provider Not In MD Primary Care Provider Unavailable Sal Mar MD Unavailable [phone] Edson Pendleton MD Primary Care Provider [phone] Encounter Details Date Type Department Care Team (Late st Contact Info) Description 11/08/2022 Orders Only [facility] at [facility] [address] [place] [address] Sal Mar MD [address] [id number] Social History Tobacco Use Types Packs/Day Years [...] External WBC 4.3 3.8 - 10.8 K/uL [facility] External Red Blood Cell (RBC) 3.16(L) 3.80 - 5.20 M/uL [facility] External Hemoglobin 9.9(L) 12.0 - 16.0 G/DL [facility] External Hematocrit 29.0(L) 35.0 - 47.0 % [facility] External MCV 92 80 - 100 fL [facility] External MCH 31 26 - 35 PG [facility] External MCHC 34 32 - 36 G/DL [facility] External RDW 14.3 11.0 - 15.0 % [facility] External Mean Platelet Volume 7.2 6.2 - 10.5 fL [facility] External Platelets 206 130 - 400 K/uL [facility] External Neutrophil# 3.2 1.6 - 8.4 K/uL [facility] External Lymphocyte# 0.6 0.4 - 5.1 K/uL [facility] External Absolute Monocyte (Abs Price) 0.4 0.0 - 1.2 K/uL [facility] External Eosinophils# 0.1 0.0 - 0.8 K/uL [facility] External Baso# 0.1 0.0 - 0.3 K/uL [facility] External Neutrophils % 74.1 42.0 - 78.0 % [facility] External Lymphocyte % 14.0 11.0 - 47.0 % [facility] External Monocyte % 8.2 0.0 - 11.0 % [facility] External Eosinophil% 2.5 0.0 - 7.0 % [facility] External Basophil % 1.2 0.0 - 3.0 % [facility] External Nucleated RBC%-Auto 0.0 0.0 - 0.9 % [facility] External Nucleated RBC Absolute 0.00 Not Estab. K/uL [facility] 11/08/2022 12:4 5 PM EDT 11/08/2022 12:53 PM EDT us Sal Mar MD LAB BLOOD ORDERABLES Final Res ult [facility] [address] [place] [id number], documented in this encounter Visit Diagnoses Not on filedocumented in this encounter Care Teams Ground Wood Supervisor Relationship Specialty Start Date End Date System, Provider Not In, [address] [place] [address] PCP - General Family Medicine 07/15/21 10/20/23 Edson Pendleton MD [address] [place] [address] PCP - General 10/21/23 Sal Mar MD [address] [place] [address] Medical Oncologist Hematology and Oncology 10/16/23 documented as of this encounter
--- OUTSIDE RECORDS SUMMARY | 2025-03-05 14:35 | XMS_ITS | Encounter Summary ---
Author Organization [facility] Address [address] [place] [address] Care Team Providers Care Dough Puncher Name Role Phone System, Provider Not In MD Primary Care Provider Unavailable Sal Mar MD Unavailable [phone] Edson Pendleton MD Primary Care Provider [phone] Encounter Details Date Type Department Care Team (Late st Contact Info) Description 07/19/2022 Orders Only [facility] [place] @ [facility] [address] [place] [address] Fidel Vasquez MD [address] [place], [place] [id number] Social History Tobacco Use Types Packs/Day Years [...] External WBC 4.0 3.8 - 10.8 K/uL [facility] External Red Blood Cell (RBC) 3.72(L) 3.80 - 5.20 M/uL [facility] External Hemoglobin 11.3(L) 12.0 - 16.0 G/DL [facility] External Hematocrit 32.9(L) 35.0 - 47.0 % [facility] External MCV 89 80 - 100 fL [facility] External MCH 31 26 - 35 PG [facility] External MCHC 34 32 - 36 G/DL [facility] External RDW 15.7(H) 11.0 - 15.0 % [facility] External Mean Platelet Volume 7.4 6.2 - 10.5 fL [facility] External Platelets 263 130 - 400 K/uL [facility] External Neutrophil# 2.6 1.6 - 8.4 K/uL [facility] External Lymphocyte# 0.9 0.4 - 5.1 K/uL [facility] External Absolute Monocyte (Abs [place]) 0.3 0.0 - 1.2 K/uL [facility] External Eosinophils# 0.1 0.0 - 0.8 K/uL [facility] External Baso# 0.1 0.0 - 0.3 K/uL [facility] External Neutrophils % 66.0 42.0 - 78.0 % [facility] External Lymphocyte % 21.4 11.0 - 47.0 % [facility] External Monocyte % 8.1 0.0 - 11.0 % [facility] External Eosinophil% 3.2 0.0 - 7.0 % [facility] External Basophil % 1.3 0.0 - 3.0 % [facility] External Nucleated RBC%-Auto 0.2 0.0 - 0.9 % [facility] External Nucleated RBC Absolute 0.01 Not Estab. K/uL [facility] 07/19/2022 3:24 PM EST 07/19/2022 3:49 PM EST us Fidel Vasquez MD LAB BLOOD ORDERABLES Final R esult [facility] [address] [place] [address], documented in this encounter Visit Diagnoses Not on filedocumented in this encounter Care Teams Dough Puncher Relationship Specialty Start Date End Date System, Provider Not In, [address] [place] [address] PCP - General Family Medicine 07/15/21 10/20/23 Edson Pendleton MD [address] [place] [address] PCP - General 10/21/23 Sal Mar MD [address] [place] [address] Medical Oncologist Hematology and Oncology 10/16/23 documented as of this encounter
--- OUTSIDE RECORDS SUMMARY | 2025-03-05 14:35 | XMS_ITS | Encounter Summary ---
Author Organization [facility] Address [address] [place] [address] Care Team Providers Care Associate Automation Engineer Name Role Phone System, Provider Not In MD Primary Care Provider Unavailable Sal Mar MD Unavailable [phone] Edson Pendleton MD Primary Care Provider [phone] Encounter Details Date Type Department Care Team (Late st Contact Info) Description 08/10/2021 Orders Only [facility] @ [facility] [address] [place] [address] Fidel Vasquez MD [address] [place], [place] [id number] Social History Tobacco Use Types Packs/Day Years [...] Time (PT) 9.6 9.0 - 11.4 [facility] External INR - Internormal Ratio 0.9(L) 2.0 - 3.0 [facility] Comment: INR OF 2.0 TO 3.0 [...] MD LAB BLOOD ORDERABLES Final R esult [facility] [address] [place] [address], documented in this encounter Visit Diagnoses Not on filedocumented in this encounter Care Teams Associate Automation Engineer Relationship Specialty Start Date End Date System, Provider Not In, [address] [place] [address] PCP - General Family Medicine 07/15/21 10/20/23 Edson Pendleton MD [address] [place] [address] PCP - General 10/21/23 Sal Mar MD [address] [place] [address] Medical Oncologist Hematology and Oncology 10/16/23 documented as of this encounter
--- OUTSIDE RECORDS SUMMARY | 2025-03-05 14:35 | XMS_ITS | Encounter Summary ---
Author Organization [facility] Address [address] [place] [address] Care Team Providers Care Cooling Room Attendant Name Role Phone System, Provider Not In MD Primary Care Provider Unavailable Sal Mar MD Unavailable [phone] Edson Pendleton MD Primary Care Provider [phone] Encounter Details Date Type Department Care Team (Late st Contact Info) Description 11/09/2021 Orders Only [facility] at [facility] [address] [place] [address] Sal Mar MD [address] [address] Social History Tobacco Use Types [...] External Glucose 89 74 - 100 mg/dL [facility] External BUN 17 6 - 20 mg/dL [facility] External Creatinine Blood 1.47(H) 0.50 - 0.95 mg/dL [facility] External BUN/Creat Ratio 12 10 - 20 (calc) [facility] External Sodium 141 136 - 145 mmol/L [facility] External Potassium 3.7 3.4 - 5.0 mmol/L [facility] External Chloride 105 98 - 107 mmol/L [facility] External Carbon Dioxide 24 22 - 31 mmol/L [facility] External Anion Gap (AG) 12 7 - 25 (calc) [facility] External Calcium 8.9 8.6 - 10.2 mg/dL [facility] External Total Protein 6.5 6.4 - 8.3 g/dL [facility] External Albumin 4.3 3.5 - 5.2 g/dL [facility] External Globulin 2.2 1.5 - 4.5 g/dL (calc) [facility] External Albumin/Globulin Ratio 2.0 1.1 - 2.5 (calc) [facility] External Bilirubin Total 0.2 0.1 - 1.2 mg/dL [facility] External Alkaline Phosphatase 57 30 - 121 U/L [facility] External AST (SGOT) 27 0 - 32 U/L [facility] External ALT (SGPT) 17 0 - 33 U/L [facility] External EGFR (If AFR/AM) 38(A) >=60 [facility] External Estimated GFR 33(A) >=60 [facility] Comment: NOTE Chronic kidney disease is defined as kidney damage for more than 3 months or a GFR less than 60 mL/min/1.73 m2 for greater than 3 months. This calculation has not been validated in women. For pediatric patients refer to [employer] https://www.kidney.org/professionals/KDOQI/gfr_calculatorPed 11/09/2021 3:53 PM EDT 11/09/2021 6:04 PM EDT Sal Mar MD LAB BLOOD ORDERABLES Final Res ult [facility] [address] [place] [address], documented in this encounter Visit Diagnoses Not on filedocumented in this encounter Care Teams Cooling Room Attendant Relationship Specialty Start Date End Date System, Provider Not In, [address] [place] [address] PCP - General Family Medicine 07/15/21 10/20/23 Edson Pendleton MD [address] [facility] [address] [place] [id number] PCP - General 10/21/23 Sal Mar MD [address] [place] [address] Medical Oncologist Hematology and Oncology 10/16/23 documented as of this encounter
--- OUTSIDE RECORDS SUMMARY | 2025-03-05 14:35 | XMS_ITS | Encounter Summary ---
Author Organization [facility] Address [address] [place] [address] Care Team Providers Care Continuous Improvement Black Belt Name Role Phone System, Provider Not In MD Primary Care Provider Unavailable Sal Mar MD Unavailable [phone] Edson Pendleton MD Primary Care Provider [phone] Encounter Details Date Type Department Care Team (Late st Contact Info) Description 08/10/2021 Orders Only [facility] @ [facility] [address] [place] [address] Fidel Vasquez MD [address] [place], [place] [id number] Social History Tobacco Use Types Packs/Day Years [...] External Iron 65 37 - 145 ug/dL [facility] External Total Iron Binding Capacity 555(H) 250 - 450 ug/dL (calc) [facility] External Unsaturated Iron Binding Capacity 490(H) 112 - 347 ug/dL [facility] External Iron-Saturation% 12(L) 15 - 50 % (calc) [facility] 08/10/2021 2:45 PM EST 08/10/2021 7:55 PM EST us Fidel Vasquez MD LAB BLOOD ORDERABLES Final R esult [facility] [address] [place] [address], documented in this encounter Visit Diagnoses Not on filedocumented in this encounter Care Teams Continuous Improvement Black Belt Relationship Specialty Start Date End Date System, Provider Not In, [address] [place] [address] PCP - General Family Medicine 07/15/21 10/20/23 Edson Pendleton MD [address] [place] [address] PCP - General 10/21/23 Sal Mar MD [address] [place] [id number] Medical Oncologist Hematology and Oncology 10/16/23 documented as of this encounter
--- OUTSIDE RECORDS SUMMARY | 2025-03-05 14:35 | XMS_ITS | Encounter Summary ---
Author Organization [facility] Address [address] [place] [address] Care Team Providers Care Lawn Care Worker Name Role Phone System, Provider Not In MD Primary Care Provider Unavailable Sal Mar MD Unavailable [phone] Edson Pendleton MD Primary Care Provider [phone] Encounter Details Date Type Department Care Team (Late st Contact Info) Description 02/08/2022 Orders Only [facility] at [facility] [address] [place] [address] Sal Mar MD [address] [address] Social History Tobacco Use Types [...] External WBC 4.3 3.8 - 10.8 K/uL [facility] External Red Blood Cell (RBC) 3.61(L) 3.80 - 5.20 M/uL [facility] External Hemoglobin 11.5(L) 12.0 - 16.0 G/DL [facility] External Hematocrit 32.7(L) 35.0 - 47.0 % [facility] External MCV 91 80 - 100 fL [facility] External MCH 32 26 - 35 PG [facility] External MCHC 35 32 - 36 G/DL [facility] External RDW 14.1 11.0 - 15.0 % [facility] External Mean Platelet Volume 7.1 6.2 - 10.5 fL [facility] External Platelets 216 130 - 400 K/uL [facility] External Neutrophil# 3.2 1.6 - 8.4 K/uL [facility] External Lymphocyte# 0.6 0.4 - 5.1 K/uL [facility] External Absolute Monocyte (Abs [place]) 0.4 0.0 - 1.2 K/uL [facility] External Eosinophils# 0.1 0.0 - 0.8 K/uL [facility] External Baso# 0.1 0.0 - 0.3 K/uL [facility] External Neutrophils % 74.5 42.0 - 78.0 % [facility] External Lymphocyte % 13.0 11.0 - 47.0 % [facility] External Monocyte % 8.8 0.0 - 11.0 % [facility] External Eosinophil% 2.4 0.0 - 7.0 % [facility] External Basophil % 1.3 0.0 - 3.0 % [facility] External Nucleated RBC%-Auto 0.1 0.0 - 0.9 % [facility] External Nucleated RBC Absolute 0.00 Not Estab. K/uL [facility] 02/08/2022 2:16 PM EDT 02/08/2022 2:22 PM EDT us Sal Mar MD LAB BLOOD ORDERABLES Final Res ult [facility] [address] [place] [address], documented in this encounter Visit Diagnoses Not on filedocumented in this encounter Care Teams Lawn Care Worker Relationship Specialty Start Date End Date System, Provider Not In, [address] [place] [address] PCP - General Family Medicine 07/15/21 10/20/23 Edson Pendleton MD [address] [place] [address] PCP - General 10/21/23 Sal Mar MD [address] [place] [address] Medical Oncologist Hematology and Oncology 10/16/23 documented as of this encounter
--- OUTSIDE RECORDS SUMMARY | 2025-03-05 14:35 | XMS_ITS | Encounter Summary ---
Author Organization [facility] Address [address] [place] [address] Care Team Providers Care Fsr Name Role Phone System, Provider Not In MD Primary Care Provider Unavailable Sal Mar MD Unavailable [phone] Edson Pendleton MD Primary Care Provider [phone] Encounter Details Date Type Department Care Team (Late st Contact Info) Description 02/08/2022 Orders Only [facility] at [facility] [address] [place] [address] Sal Mar MD [address] [address] Social History Tobacco Use Types [...] External Ferritin 94 13 - 157 ng/mL [facility] 02/08/2022 2:16 PM EDT 02/08/2022 2:34 PM EDT Sal Mar MD LAB BLOOD ORDERABLES Final Res ult [facility] [address] [place] [address], documented in this encounter Visit Diagnoses Not on filedocumented in this encounter Care Teams Fsr Relationship Specialty Start Date End Date System, Provider Not In, [address] [place] [address] PCP - General Family Medicine 07/15/21 10/20/23 Edson Pendleton MD [address] [place] [address] [address] [place] [address] PCP - General 10/21/23 Sal Mar MD [address] [place] [address] Medical Oncologist Hematology and Oncology 10/16/23 documented as of this encounter
--- OUTSIDE RECORDS SUMMARY | 2025-03-05 14:35 | XMS_ITS | Encounter Summary ---
Author Organization [facility] Address [address] [place] [address] Care Team Providers Care Molasses Feed Mixer Name Role Phone System, Provider Not In MD Primary Care Provider Unavailable Sal Mar MD Unavailable [phone] Edson Pendleton MD Primary Care Provider [phone] Encounter Details Date Type Department Care Team (Late st Contact Info) Description 08/10/2021 Orders Only [facility] @ [facility] [address] [place] [address] Fidel Vasquez MD [address] [place], [place] [phone] Social History Tobacco Use Types Packs/Day Years [...] External WBC 5.0 3.8 - 10.8 K/uL [facility] External Red Blood Cell (RBC) 3.57(L) 3.80 - 5.20 M/uL [facility] External Hemoglobin 10.7(L) 12.0 - 16.0 G/DL [facility] External Hematocrit 31.8(L) 35.0 - 47.0 % [facility] External MCV 89 80 - 100 fL [facility] External MCH 30 26 - [address] [facility] External MCHC 34 32 - 36 G/DL [facility] External RDW 15.3(H) 11.0 - 15.0 % [facility] External Mean Platelet Volume 8.0 6.2 - 10.5 fL [facility] External Platelets 278 130 - 400 K/uL [facility] External Neutrophil# 3.6 1.6 - 8.4 K/uL [facility] External Lymphocyte# 0.8 0.4 - 5.1 K/uL [facility] External Absolute Monocyte (Abs [place]) 0.4 0.0 - 1.2 K/uL [facility] External Eosinophils# 0.1 0.0 - 0.8 K/uL [facility] External Baso# 0.1 0.0 - 0.3 K/uL [facility] External Neutrophils % 72.9 42.0 - 78.0 % [facility] External Lymphocyte % 15.6 11.0 - 47.0 % [facility] External Monocyte % 8.0 0.0 - 11.0 % [facility] External Eosinophil% 2.4 0.0 - 7.0 % [facility] External Basophil % 1.1 0.0 - 3.0 % [facility] External Nucleated RBC%-Auto 0.0 0.0 - 0.9 % [facility] External Nucleated RBC Absolute 0.00 Not Estab. K/uL [facility] 08/10/2021 2:45 PM EST 08/10/2021 7:49 PM EST us Fidel Vasquez MD LAB BLOOD ORDERABLES Final R esult [facility] [address] [place] [address], documented in this encounter Visit Diagnoses Not on filedocumented in this encounter Care Teams Molasses Feed Mixer Relationship Specialty Start Date End Date System, Provider Not In, [address] [place] [address] PCP - General Family Medicine 07/15/21 10/20/23 Edson Pendleton MD [address] [place] [address] PCP - General 10/21/23 Sal Mar MD [address] [place] [address] Medical Oncologist Hematology and Oncology 10/16/23 documented as of this encounter
--- OUTSIDE RECORDS SUMMARY | 2025-03-05 14:35 | XMS_ITS | Encounter Summary ---
Author Organization [facility] Address [address] [place] [address] Care Team Providers Care Clinical Sales Consultant Name Role Phone System, Provider Not In MD Primary Care Provider Unavailable Sal Mar MD Unavailable [phone] Edson Pendleton MD Primary Care Provider [phone] Encounter Details Date Type Department Care Team (Late st Contact Info) Description 11/08/2022 Orders Only [facility] at [facility] [address] [place] [address] Sal Mar MD [address] [address] Social History Tobacco Use Types [...] External Iron 105 37 - 145 ug/dL [facility] External Total Iron Binding Capacity 481(H) 250 - 450 ug/dL (calc) [facility] External Unsaturated Iron Binding Capacity 376(H) 112 - 347 ug/dL [facility] External Iron-Saturation% 22 15 - 50 % (calc) [facility] 11/08/2022 12:4 5 PM EDT 11/08/2022 12:54 PM EDT us Sal Mar MD LAB BLOOD ORDERABLES Final Res ult [facility] [address] [place] [address], documented in this encounter Visit Diagnoses Not on filedocumented in this encounter Care Teams Clinical Sales Consultant Relationship Specialty Start Date End Date System, Provider Not In, [address] [place] [address] PCP - General Family Medicine 07/15/21 10/20/23 Edson Pendleton MD [address] [place] [address] PCP - General 10/21/23 Sal Mar MD [address] [place] [id number] Medical Oncologist Hematology and Oncology 10/16/23 documented as of this encounter
--- OUTSIDE RECORDS SUMMARY | 2025-03-05 14:35 | XMS_ITS | Encounter Summary ---
Author Organization [facility] Address [address] [place] [address] Care Team Providers Care Zone Maintenance Technician Name Role Phone System, Provider Not In MD Primary Care Provider Unavailable Sal Mar MD Unavailable [phone] Edson Pendleton MD Primary Care Provider [phone] Encounter Details Date Type Department Care Team (Late st Contact Info) Description 02/08/2022 Orders Only [facility] [address] [place] [address] Sal Mar MD [address] [address] Social History Tobacco Use Types [...] External Iron 116 37 - 145 ug/dL [facility] External Total Iron Binding Capacity 419 250 - 450 ug/dL (calc) [facility] External Unsaturated Iron Binding Capacity 303 112 - 347 ug/dL [facility] External Iron-Saturation% 28 15 - 50 % (calc) [facility] 02/08/2022 2:16 PM EDT 02/08/2022 2:34 PM EDT us Sal Mar MD LAB BLOOD ORDERABLES Final Res ult [facility] [address] [place] [address], documented in this encounter Visit Diagnoses Not on filedocumented in this encounter Care Teams Zone Maintenance Technician Relationship Specialty Start Date End Date System, Provider Not In, [address] [place] [address] PCP - General Family Medicine 07/15/21 10/20/23 Edson Pendleton MD [address] [place] [address] PCP - General 10/21/23 Sal Mar MD [address] [place], [place] [id number] Medical Oncologist Hematology and Oncology 10/16/23 documented as of this encounter
--- OUTSIDE RECORDS SUMMARY | 2025-03-05 14:35 | XMS_ITS | Clinical Summary ---
Author Organization [facility] Address [address] [place] [address] Care Team Providers Care Doughnut Fryer Name Role Phone aSl Mar MD Unavailable [phone] Edson Pendleton MD Primary Care Provider [phone] Allergies Active Allergy Reactions Criticality Noted Date [...] Team Description 02/16/2025 2:00 PM EDT Infusion [facility] [address] [place] [address] Iron deficiency 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 blood loss (Primary Dx); Crohn's disease of colon with complication (CMS/HCC); Stage 3 chronic kidney disease, unspecified whether stage 3a or 3b CKD (CMS/HCC) 02/16/2025 Travel 02/04/2025 2:00 PM EDT Infusion [facility] [address] [place] [address] Iron deficiency 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 blood loss (Primary Dx); Stage 3 chronic kidney disease, unspecified whether stage 3a or 3b CKD (CMS/HCC); Crohn's disease of colon with complication (CMS/HCC) 02/04/2025 Travel 02/02/2025 Travel 01/28/2025 1:45 PM EDT Office Visit [facility] [address] [place] [address] Sal Mar MD Iron deficiency 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 blood loss (Primary Dx); Crohn's disease of colon with complication (CMS/HCC); Stage 3 chronic kidney disease, unspecified whether stage 3a or 3b CKD (CMS/HCC) 01/28/2025 Orders Only [facility] [address] [place] [address] Carrie Chavira, PharmD 01/28/2025 Travel 01/21/2025 Telephone [facility] at [address] [address] Sal Mar MD Requesting Appt [...] 05/13/2020 , 05/13/2020, 06/21/2017, Additional history exists [id number] Vaccine (9 - Moderna risk 2023- season) [...] - 145 ug/dL 01/25/2025 7:00 PM EDT [facility] External Total Iron Binding Capacity 498(H) 250 - 450 ug/dL (calc) 01/25/2025 7:00 PM EDT [facility] External Unsaturated Iron Binding Capacity 453(H) 112 - 347 ug/dL 01/25/2025 7:00 PM EDT [facility] External Iron-Saturation% 9(L) 15 - 50 % (calc) 01/25/2025 7:00 PM EDT [facility] Blood Venous blood specimen / Unknown 01/25/2025 3:06 PM EDT 01/25/2025 6:31 PM EDT Sal Mar MD LAB BLOOD ORDERABLES Final Res ult [facility] [address] [place] [address], * (ABNORMAL) CBC and Differential (01/25/2025 3:06 PM EDT) External WBC 4.8 3.8 - 10.8 10*3/uL 01/25/2025 6:35 PM EDT [facility] External Red Blood Cell (RBC) 3.13(L) 3.80 - 5.20 10*6/uL 01/25/2025 6:35 PM EDT [facility] External Hemoglobin 9.4(L) 12.0 - 16.0 g/dL 01/25/2025 6:35 PM EDT [facility] External Hematocrit 27.9(L) 35.0 - 47.0 % 01/25/2025 6:35 PM EDT [facility] External MCV 89 80 - 100 fL 01/25/2025 6:35 PM EDT [facility] External MCH 30 26 - 35 pg 01/25/2025 6:35 PM EDT [facility] External MCHC 34 32 - 36 g/dL 01/25/2025 6:35 PM EDT [facility] External RDW 14.2 11.0 - 15.0 % 01/25/2025 6:35 PM EDT [facility] External Mean Platelet Volume 7.6 6.2 - 10.5 fL 01/25/2025 6:35 PM EDT [facility] External Platelet Count (Plt) 328 150 - 400 10*3/uL 01/25/2025 6:35 PM EDT [facility] External Neutrophil# 3.5 1.6 - 8.4 10*3/uL 01/25/2025 6:35 PM EDT [facility] External Lymphocyte# 0.6 0.4 - 5.1 10*3/uL 01/25/2025 6:35 PM EDT [facility] External Absolute Monocyte (Abs Harper) 0.4 0.0 - 1.2 10*3/uL 01/25/2025 6:35 PM EDT [facility] External Eosinophils# 0.1 0.0 - 0.8 10*3/uL 01/25/2025 6:35 PM EDT [facility] External Baso# 0.1 0.0 - 0.3 10*3/uL 01/25/2025 6:35 PM EDT [facility] External Neutrophils % 73.6 42.0 - 78.0 % 01/25/2025 6:35 PM EDT [facility] External Lymphocyte % 13.2 11.0 - 47.0 % 01/25/2025 6:35 PM EDT [facility] External Monocyte % 9.2 0.0 - 11.0 % 01/25/2025 6:35 PM EDT [facility] External Eosinophil% 2.5 0.0 - 7.0 % 01/25/2025 6:35 PM EDT [facility] External Basophil % 1.5 0.0 - 3.0 % 01/25/2025 6:35 PM EDT [facility] External Nucleated RBC%-Auto 0.0 0.0 - 0.9 % 01/25/2025 6:35 PM EDT [facility] External Nucleated RBC Absolute 0.00 Not Estab. 10*3/uL 01/25/2025 6:35 PM EDT [facility] Blood Venous blood specimen / Unknown 01/25/2025 3:06 PM EDT 01/25/2025 6:32 PM EDT us Sal Mar MD LAB BLOOD ORDERABLES Final Res ult [facility] [place] [address], [place] [phone] * Ferritin, Serum (01/25/2025 3:06 PM EDT) External Ferritin 13 13 - 157 ng/mL 01/25/2025 7:00 PM EDT [facility] Blood Venous blood specimen / Unknown 01/25/2025 3:06 PM EDT 01/25/2025 6:31 PM EDT us Sal Mar MD LAB BLOOD ORDERABLES Final Res ult Performing Organization Address City/[facility]/ZIP Co de Phone Number [facility] [address] [place] [address], [place] [phone] * (ABNORMAL) Comprehensive Metabolic Panel, Plasma (01/25/2025 3:06 PM EDT) External Glucose 104(H) 74 - 100 mg/dL 01/25/2025 7:00 PM [facility] External BUN 21(H) 6 - 20 mg/dL 01/25/2025 7:00 PM [facility] External Creatinine Blood 1.47(H) 0.50 - 0.95 mg/dL 01/25/2025 7:00 PM [facility] External BUN/Creat Ratio 14 10 - 20 (calc) 01/25/2025 7:00 PM [facility] External Sodium 142 136 - 145 mmol/L 01/25/2025 7:00 PM [facility] External Potassium 4.2 3.4 - 5.0 mmol/L 01/25/2025 7:00 PM [facility] External Chloride 107 98 - 107 mmol/L 01/25/2025 7:00 PM [facility] External Carbon Dioxide (CO2) 23 22 - 31 mmol/L 01/25/2025 7:00 PM [facility] External Anion Gap (AG) 12 7 - 25 (calc) 01/25/2025 7:00 PM [facility] External Calcium 8.4(L) 8.6 - 10.2 mg/dL 01/25/2025 7:00 PM [facility] External Total Protein 6.3(L) 6.4 - 8.3 g/dL 01/25/2025 7:00 PM [facility] External Albumin 3.7 3.5 - 5.2 g/dL 01/25/2025 7:00 PM [facility] External Globulin 2.6 1.5 - 4.5 7:00 PM [facility] External Albumin/Globulin Ratio 1.4 1.1 - 2.5 (calc) 01/25/2025 7:00 PM [facility] External Bilirubin Total <0.2 0.1 - 1.2 mg/dL 01/25/2025 7:00 PM [facility] External Alkaline Phosphatase 72 30 - 121 U/L 01/25/2025 7:00 PM [facility] External AST (SGOT) 17 0 - 32 U/L 01/25/2025 7:00 PM EDT [facility] External ALT (SGPT) 10 0 - 33 U/L 01/25/2025 7:00 PM EDT [facility] External Estimated GFR 34(A) >=60 01/25/2025 7:00 PM EDT [facility] Comment: NOTE New calculation for GFR (CKD-EPI 2020) is formulated without race adjustment factors at the recommendation of the National Kidney Foundation and [place] Society of Nephrology. This calculation has not been validated in women. For pediatric patients refer to https://www.kidney.org/professionals/KDOQI/gfr_calculatorPed Blood Venous blood specimen / Unknown 01/25/2025 3:06 PM EDT 01/25/2025 6:31 PM EDT us Sal Mar MD LAB BLOOD ORDERABLES Final Res ult [facility] [address] [id number], from Last 3 [place] [address] [facility] Care Teams Doughnut Fryer Relationship Specialty Start Date End Date Edson Pendleton MD [address] [place] [id number] PCP - General 10/21/23 Sal Mar MD [address] [id number] Medical Oncologist Hematology and Oncology 10/16/23
--- OUTSIDE RECORDS SUMMARY | 2025-03-05 14:35 | XMS_ITS | Encounter Summary ---
Author Organization [facility] Address [address] [place] [address] Care Team Providers Care Field Interviewer Name Role Phone System, Provider Not In MD Primary Care Provider Unavailable Sal Mar MD Unavailable [phone] Edson Pendleton MD Primary Care Provider [phone] Encounter Details Date Type Department Care Team (Late st Contact Info) Description 11/08/2022 Orders Only [facility] [address] [place] [address] Sal Mar MD [address] [id number] Social History Tobacco Use Types Packs/Day Years [...] External Ferritin 9(L) 13 - 157 ng/mL [facility] 11/08/2022 12:4 5 PM EDT 11/08/2022 12:54 PM EDT Sal Mar MD LAB BLOOD ORDERABLES Final Res ult [facility] [address] [place] [address], documented in this encounter Visit Diagnoses Not on filedocumented in this encounter Care Teams Field Interviewer Relationship Specialty Start Date End Date System, Provider Not In, [address] [place] [address] PCP - General Family Medicine 07/15/21 10/20/23 Edson Pendleton MD [address] [place] [address] PCP - General 10/21/23 Sal Mar MD [address] [place] [address] Medical Oncologist Hematology and Oncology 10/16/23 documented as of this encounter
--- OUTSIDE RECORDS SUMMARY | 2025-03-05 14:35 | XMS_ITS | Encounter Summary ---
Author Organization [facility] Address [address] [place] [address] Care Team Providers Care Toe Puller Name Role Phone System, Provider Not In MD Primary Care Provider Unavailable Sal Mar MD Unavailable [phone] Edson Pendleton MD Primary Care Provider [phone] Encounter Details Date Type Department Care Team (Late st Contact Info) Description 11/08/2022 Orders Only [facility] [address] [place] [address] Sal Mar MD [address] [address] Social History Tobacco Use Types [...] External Glucose 93 74 - 100 mg/dL [facility] External BUN 27(H) 6 - 20 mg/dL [facility] External Creatinine Blood 1.39(H) 0.50 - 0.95 mg/dL [facility] External BUN/Creat Ratio 19 10 - 20 (calc) [facility] External Sodium 141 136 - 145 mmol/L [facility] External Potassium 4.3 3.4 - 5.0 mmol/L [facility] External Chloride 105 98 - 107 mmol/L [facility] External Carbon Dioxide 24 22 - 31 mmol/L [facility] External Anion Gap (AG) 12 7 - 25 (calc) [facility] External Calcium 8.4(L) 8.6 - 10.2 mg/dL [facility] External Total Protein 5.9(L) 6.4 - 8.3 g/dL [facility] External Albumin 3.7 3.5 - 5.2 g/dL [facility] External Globulin 2.2 1.5 - 4.5 g/dL (calc) [facility] External Albumin/Globulin Ratio 1.7 1.1 - 2.5 (calc) [facility] External Bilirubin Total 0.2 0.1 - 1.2 mg/dL [facility] External Alkaline Phosphatase 45 30 - 121 U/L [facility] External AST (SGOT) 16 0 - 32 U/L [facility] External ALT (SGPT) 11 0 - 33 U/L [facility] External Estimated GFR 37(A) >=60 [facility] Comment: NOTE New calculation for GFR (CKD-EPI 2020) is formulated without race adjustment factors at the recommendation of the National Kidney Foundation and [place] Society of Nephrology. This calculation has not been validated in women. For pediatric patients refer to https://www.kidney.org/professionals/KDOQI/gfr_calculatorPed 11/08/2022 12:4 5 PM EDT 11/08/2022 12:54 PM EDT us Sal Mar MD LAB BLOOD ORDERABLES Final Res ult [facility] [address] [place] [address], documented in this encounter Visit Diagnoses Not on filedocumented in this encounter Care Teams Toe Puller Relationship Specialty Start Date End Date System, Provider Not In, [address] [place] [address] PCP - General Family Medicine 07/15/21 10/20/23 Edson Pendleton MD [address] [place] [address] PCP - General 10/21/23 Sal Mar MD [address] [place], [place] [id number] Medical Oncologist Hematology and Oncology 10/16/23 documented as of this encounter
--- OUTSIDE RECORDS SUMMARY | 2025-03-05 14:35 | XMS_ITS | Encounter Summary ---
Author Organization [facility] Address [address] [place] [address] Care Team Providers Care Bookkeepers Supervisor Name Role Phone System, Provider Not In MD Primary Care Provider Unavailable Sal Mar MD Unavailable [phone] Edson Pendleton MD Primary Care Provider [phone] Encounter Details Date Type Department Care Team (Late st Contact Info) Description 01/16/2022 Orders Only [facility] @ [facility] [address] [place] [address] Fidel Vasquez MD [address] [place], [place] [id number] Social History Tobacco Use Types Packs/Day Years [...] Exam (01/16/2022) External Surgical Pathology SEE BELOW [facility] Comment: Department of Pathology Surgical Pathology Report NAME:ALEJANDRA MALONE PATH.:[id number] Copy to: Diagnosis: A) Ileum biopsy: Small [...] ORDERABLES Fin al Result Performing Organization Address City/State/[facility] Co de Phone Number [facility] [address] [place] [address], documented in this encounter Visit Diagnoses Not on filedocumented in this encounter Care Teams Bookkeepers Supervisor Relationship Specialty Start Date End Date System, Provider Not In, [facility] [place] [address] PCP - General Family Medicine 07/15/21 10/20/23 Edson Pendleton MD [address] [place] [address] PCP - General 10/21/23 Sal Mar MD [address] [place] [address] Medical Oncologist Hematology and Oncology 10/16/23 documented as of this encounter
--- OUTSIDE RECORDS SUMMARY | 2025-03-05 14:35 | XMS_ITS | Encounter Summary ---
Author Organization [facility] Address [address] [place] [address] Care Team Providers Care Cone Winder Name Role Phone System, Provider Not In MD Primary Care Provider Unavailable Sal Mar MD Unavailable [phone] Edson Pendleton MD Primary Care Provider [phone] Encounter Details Date Type Department Care Team (Late st Contact Info) Description 02/08/2022 Orders Only [facility] [address] [place] [address] Sal Mar MD [address] [address] Social History Tobacco Use Types [...] External Glucose 106(H) 74 - 100 mg/dL [facility] External BUN 27(H) 6 - 20 mg/dL [facility] External Creatinine Blood 1.59(H) 0.50 - 0.95 mg/dL [facility] External BUN/Creat Ratio 17 10 - 20 (calc) [facility] External Sodium 141 136 - 145 mmol/L [facility] External Potassium 4.0 3.4 - 5.0 mmol/L [facility] External Chloride 103 98 - 107 mmol/L [facility] External Carbon Dioxide 26 22 - 31 mmol/L [facility] External Anion Gap (AG) 12 7 - 25 (calc) [facility] External Calcium 9.3 8.6 - 10.2 mg/dL [facility] External Total Protein 6.1(L) 6.4 - 8.3 g/dL [facility] External Albumin 4.1 3.5 - 5.2 g/dL [facility] External Globulin 2.0 1.5 - 4.5 g/dL (calc) [facility] External Albumin/Globulin Ratio 2.1 1.1 - 2.5 (calc) [facility] External Bilirubin Total 0.3 0.1 - 1.2 mg/dL [facility] External Alkaline Phosphatase 47 30 - 121 U/L [facility] External AST (SGOT) 19 0 - 32 U/L [facility] External ALT (SGPT) 13 0 - 33 U/L [facility] External Estimated GFR 32(A) >=60 [facility] Comment: NOTE New calculation for GFR (CKD-EPI 2020) is formulated without race adjustment factors at the recommendation of the National Kidney Foundation and [place] Society of Nephrology. This calculation has not been validated in women. For pediatric patients refer to https://www.kidney.org/professionals/KDOQI/gfr_calculatorPed 02/08/2022 2:16 PM EDT 02/08/2022 2:34 PM EDT us Sal Mar MD LAB BLOOD ORDERABLES Final Res ult [facility] [address] [place] [address], documented in this encounter Visit Diagnoses Not on filedocumented in this encounter Care Teams Cone Winder Relationship Specialty Start Date End Date System, Provider Not In, [address] [place] [address] PCP - General Family Medicine 07/15/21 10/20/23 Edson Pendleton MD [address] [place] [address] PCP - General 10/21/23 Sal Mar MD [address] [id number] Medical Oncologist Hematology and Oncology 10/16/23 documented as of this encounter
--- OUTSIDE RECORDS SUMMARY | 2025-03-05 14:36 | XMS_ITS | Referral Summary ---
Author Organization [facility] ([place], [place], [place], [place]) Address [address] [place] [address] Care Team Providers Care Alteration Manager Name Role Phone Unavailable Primary Care Provider [...]
--- OUTSIDE RECORDS SUMMARY | 2025-03-05 14:36 | XMS_ITS | Encounter Summary ---
Author Organization [facility] Address [address] [place] [address] Care Team Providers Care Skirt Maker Name Role Phone System, Provider Not In MD Primary Care Provider Unavailable Sal Mar MD Unavailable [phone] Edson Pendleton MD Primary Care Provider [phone] Encounter Details Date Type Department Care Team (Late st Contact Info) Description 07/19/2022 Orders Only [facility] [address] [place] [address] Fidel Vasquez MD [address] [place], [place] [id number] Social History Tobacco Use Types Packs/Day Years [...] External Iron 93 37 - 145 ug/dL [facility] External Total Iron Binding Capacity 507(H) 250 - 450 ug/dL (calc) [facility] External Unsaturated Iron Binding Capacity 414(H) 112 - 347 ug/dL [facility] External Iron-Saturation% 18 15 - 50 % (calc) [facility] 07/19/2022 3:24 PM EST 07/19/2022 3:56 PM EST us Fidel Vasquez MD LAB BLOOD ORDERABLES Final R esult [facility] [address] [place] [address], documented in this encounter Visit Diagnoses Not on filedocumented in this encounter Care Teams Skirt Maker Relationship Specialty Start Date End Date System, Provider Not In, [address] [place] [address] PCP - General Family Medicine 07/15/21 10/20/23 Edson Pendleton MD [address] [place] [address] PCP - General 10/21/23 Sal Mar MD [address] [place] [address] Medical Oncologist Hematology and Oncology 10/16/23 documented as of this encounter
--- OUTSIDE RECORDS SUMMARY | 2025-03-05 14:36 | XMS_ITS | Encounter Summary ---
Author Organization [facility] Address [address] [place] [address] Care Team Providers Care Coach Professional Athletes Name Role Phone System, Provider Not In MD Primary Care Provider Unavailable Sal Mar MD Unavailable [phone] Edson Pendleton MD Primary Care Provider [phone] Encounter Details Date Type Department Care Team (Late st Contact Info) Description 07/19/2022 Orders Only [facility] [address] [place] [address] Fidel Vasquez MD [address] [place], [place] [phone] Social History Tobacco Use Types Packs/Day Years [...] C-Reactive Protein <0.06 0.00 - 0.49 mg/dL [facility] 07/19/2022 3:24 PM EST 07/19/2022 3:56 PM EST Fidel Vasquez MD LAB BLOOD ORDERABLES Final R esult [facility] [address] [place] [address], documented in this encounter Visit Diagnoses Not on filedocumented in this encounter Care Teams Coach Professional Athletes Relationship Specialty Start Date End Date System, Provider Not In, [address] [place] [address] PCP - General Family Medicine 07/15/21 10/20/23 Edson Pendleton MD [address] [place] [address] PCP - General 10/21/23 Sal Mar MD [address] [place] [address] Medical Oncologist Hematology and Oncology 10/16/23 documented as of this encounter
--- OUTSIDE RECORDS SUMMARY | 2025-03-05 14:36 | XMS_ITS | Encounter Summary ---
Author Organization [facility] Address [address] [place] [address] Care Team Providers Care Clay Dry Press Operator Name Role Phone System, Provider Not In MD Primary Care Provider Unavailable Sal Mar MD Unavailable [phone] Edson Pendleton MD Primary Care Provider [phone] Encounter Details Date Type Department Care Team (Late st Contact Info) Description 07/19/2022 Orders Only [facility] [address] [place] [address] Fidel Vasquez MD [address] [place], [place] [id number] Social History Tobacco Use Types Packs/Day Years [...] External Glucose 84 74 - 100 mg/dL [facility] External BUN 20 6 - 20 mg/dL [facility] External Creatinine Blood 1.18(H) 0.50 - 0.95 mg/dL [facility] External BUN/Creat Ratio 17 10 - 20 (calc) [facility] External Sodium 144 136 - 145 mmol/L [facility] External Potassium 4.2 3.4 - 5.0 mmol/L [facility] External Chloride 107 98 - 107 mmol/L [facility] External Carbon Dioxide 26 22 - 31 mmol/L [facility] External Anion Gap (AG) 11 7 - 25 (calc) [facility] External Calcium 9.2 8.6 - 10.2 mg/dL [facility] External Total Protein 6.6 6.4 - 8.3 g/dL [facility] External Albumin 4.2 3.5 - 5.2 g/dL [facility] External Globulin 2.4 1.5 - 4.5 g/dL (calc) [facility] External Albumin/Globulin Ratio 1.8 1.1 - 2.5 (calc) [facility] External Bilirubin Total 0.2 0.1 - 1.2 mg/dL [facility] External Alkaline Phosphatase 54 30 - 121 U/L [facility] External AST (SGOT) 20 0 - 32 U/L [facility] External ALT (SGPT) 12 0 - 33 U/L [facility] External Estimated GFR 46(A) >=60 [facility] Comment: NOTE New calculation for GFR (CKD-EPI 2020) is formulated without race adjustment factors at the recommendation of the National Kidney Foundation and [place] Society of Nephrology. This calculation has not been validated in women. For pediatric patients refer to https://www.kidney.org/professionals/KDOQI/gfr_calculatorPed 07/19/2022 3:24 PM EST 07/19/2022 3:56 PM EST us Fidel Vasquez MD LAB BLOOD ORDERABLES Final R esult [facility] [address] [place] [address], documented in this encounter Visit Diagnoses Not on filedocumented in this encounter Care Teams Clay Dry Press Operator Relationship Specialty Start Date End Date System, Provider Not In, [address] [place] [address] PCP - General Family Medicine 07/15/21 10/20/23 Edson Pendleton MD [address] [place] [address] PCP - General 10/21/23 Sal Mar MD [address] [place] [address] Medical Oncologist Hematology and Oncology 10/16/23 documented as of this encounter
--- OUTSIDE RECORDS SUMMARY | 2025-03-05 14:36 | XMS_ITS | Clinical Summary ---
[facility] Address [address] [place] [address] Care Team Providers Care Clocksmith Name Role Phone Provider, No Known Primary [...] Payer (Ef fective 2003-Present) Name:Alejandra Ramos Member ID:[id number] Relation to Subscriber:Self Name:Alejandra Ramos Subscriber ID:[id number] Payer ID:[id number] Group ID:Not on file Type:Not on file Address: [address] [employer] Care Teams Clocksmith Relationship Specialty Start Date End Date Provider, No Known [facility] [address] PCP - General 09/21/19
--- OUTSIDE RECORDS SUMMARY | 2025-03-05 14:36 | XMS_ITS | Encounter Summary ---
Author Organization [facility] Address [address] [place] [address] Care Team Providers Care Street Worker Name Role Phone System, Provider Not In MD Primary Care Provider Unavailable Sal Mar MD Unavailable [phone] Edson Pendleton MD Primary Care Provider [phone] Encounter Details Date Type Department Care Team (Late st Contact Info) Description 07/19/2022 Orders Only [facility] [address] [place] [address] Fidel Vasquez MD [address] [place], [place] [id number] Social History Tobacco Use Types Packs/Day Years [...] External Ferritin 14 13 - 157 ng/mL [facility] 07/19/2022 3:24 PM EST 07/19/2022 3:56 PM EST Fidel Vasquez MD LAB BLOOD ORDERABLES Final R esult [facility] [address] [place] [address], documented in this encounter Visit Diagnoses Not on filedocumented in this encounter Care Teams Street Worker Relationship Specialty Start Date End Date System, Provider Not In, [address] [place] [address] PCP - General Family Medicine 07/15/21 10/20/23 Edson Pendleton MD [address] [facility] [address] [place] [address] PCP - General 10/21/23 Sal Mar MD [address] [id number] Medical Oncologist Hematology and Oncology 10/16/23 documented as of this encounter
--- OUTSIDE RECORDS SUMMARY | 2025-03-05 14:36 | XMS_ITS | Clinical Summary ---
Author Organization [employer] ([place], [place], [place], [place]) Address [address] [place] [address] Care Team Providers Care Professor Of Economics Name Role Phone Unavailable Primary Care Provider [...]
--- OUTSIDE RECORDS SUMMARY | 2025-03-05 14:36 | XMS_ITS | Patient Health Record ---
[facility] Address [address] [facility] [address] [place] [id number] Care Team Providers Care Centrifugal Spinner Name Role Phone Unique Pendleton Primary Care Provider [phone] Daniel Keys Unavailable [phone] Claudette Rees Unavailable [phone] Mar Paz Unavailable [phone] Allergies Allergen (clinical drug ingredient) Drug/Non Drug [...] ctive Results Component Value Reference Range Notes Mammogram Reviewed date:04/10/2024 09:36:02 AM Interpretation:benign Performing Lab: Notes/Report: benign result benign P-Magnesium Reviewed date:06/25/2024 08:39:31 AM Interpretation: Performing Lab: Notes/Report: Test performed by [employer], [facility] [address] [place] [address] , [address], [place] [address] Sawyer Hyman MD, Plastic Outfitter CLIA: [id number] Magnesium 1.2 1.6-2.4 mg/dL P-Comprehensive Metabolic Pa lyndsey (CMP) Reviewed date:06/25/2024 08:39:31 AM Interpretation: Performing Lab: Notes/Report: Test performed by [employer], [facility] [address] [place] [address] , [address], [place] [address] Sawyer Hyman MD, Plastic Outfitter CLIA: [id number] Sodium 142 135-145 mmol/L Potassium 4.6 3.5-5.3 [...] Interpretation:464 Performing Lab: Notes/Report: Test performed by [facility] [address] , [address], [place] [address] Sawyer Hyman MD, Plastic Outfitter CLIA: [id number] Vitamin B12 524 775-8177 pg/mL P-Comprehensive Metabolic Pa lyndsey (CMP) Reviewed date:01/03/2025 10:10:06 PM Interpretation:GFR 39 Performing Lab: Notes/Report: Test performed by [facility] [address] , [address], [place] [address] Sawyer Hyman MD, Plastic Outfitter CLIA: [id number] Sodium 143 135-145 mmol/L Potassium 4.0 3.5-5.3 [...] Interpretation:1.4 Performing Lab: Notes/Report: Test performed by [employer] [address] [place] [address] , [address], [place] [address] Sawyer Hyman MD, Plastic Outfitter CLIA: [id number] Magnesium 1.4 1.6-2.4 mg/dL P-TSH Reviewed date:01/03/2025 10:10:06 PM Interpretation:3.24 Performing Lab: Notes/Report: Test performed by [facility] [address] , [place] [address] Sawyer Hyman MD, Plastic Outfitter CLIA: [id number] TSH 3.24 0.43-5.25 mU/L X ray : Ankle, left Reviewed date:01/21/2025 08:24:07 AM Interpretation:soft tissue swelling Performing Lab: Notes/Report: soft tissue swelling Reason For Referral No Information Medications Medication [...] Vaccine Route Administration Date Status Comme nts xFluzone-trivale nt-medicare pts. IM Intramuscular 05/22/2011 Administered xFluzone-trivale nt-medicare pts. IM Intramuscular 05/22/2012 Administered xFluzone (6mos and older)-trivalent IM Intramuscular 05/02/2010 Administered xFlu shot-36 months and older IM Intramuscular 05/21/2005 Administered xFlu shot-36 months and older IM Intramuscular 05/24/2006 Administered xFlu shot-36 months and older IM Intramuscular 05/22/2007 Administered xFlu shot-36 months and older IM Intramuscular 05/10/2008 Administered xFlu shot-36 months and older IM Intramuscular 06/13/2009 Administered Prevnar (PCV20) IM Intramuscular 05/07/2023 Administered [facility] failed to document in ecw Prevnar (PCV13) IM Intramuscular 05/14/2016 Administered PNEUMOVAX 23 VACCINE IM Intramuscular 05/29/2011 Administered PNEUMOVAX 23 VACCINE IM Intramuscular 05/31/2018 Administered pneumovax IM Intramuscular 06/13/2005 Administered H1N1 flu vaccine IM Intramuscular 06/13/2009 Administered Fluzone High Dose (65yr and older) [...] (65yr and older) IM Intramuscular 04/15/2024 Administered COVID 19 Moderna Unknown 08/17/2020 Administered COVID 19 Moderna Unknown 09/21/2020 Administered COVID 19 Moderna Unknown 06/21/2021 Administered COVID 19 Moderna Unknown 11/27/2021 Administered Problems Problem Type SNOMED Code ICD Code Onset Dates Problem Status W/U Status Risk Notes Problem Sinusitis (58659244) Sinusitis (J32.9) Active c onfirmed Problem Chronic renal insufficiency (654241250) Chronic renal insufficiency (N18.9) Active confirmed Problem Hypertriglyceridemia (501906938) Hypertriglyceridemia (E78.1) Active confirmed Problem Anxiety (12638293) Anxiety (F41.9) Active confi rmed Problem Hypertension (62846384) Hypertension (I10) Active confirmed Problem Osteopenia (233701444) Osteopenia (M85.80) Active confirmed Problem Sciatic nerve lesion (894964839) Piriformis syndrome of left side (G57.02) Active confirmed Problem Osteoarthritis (184171311) Osteoarthritis (M19.90) Active confirmed Problem Paresthesia (98130753) Paresthesia (R20.2) Active confirmed Problem Iron deficiency anemia (85231947) Iron deficiency anemia (D50.9) Active confirmed Problem Vitamin B12 deficiency (non anemic) (44230547) Vitamin B 12 deficiency (E53.8) Active confirmed Problem Sciatica (81276934) Sciatica of left side (M54.32) Active confirmed Problem Chronic maxillary sinusitis (22611176) Chronic maxillary sinusitis (J32.0) Active confirmed Problem Crohn's disease of large bowel (0066987) Crohn's disease of large intestine without complications (K50.10) Active confirmed Problem Pulmonary fibrosis (92184767) Pulmonary fibrosis (J84.10) Active confirmed Problem Crohn disease (29640394) Crohn disease (K50.90) Active confirmed Problem History of tuberculosis (877189345) 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) Active confirmed Problem Transient cerebral ischemia (691118958) Transient cerebral ischemia, unspecified type (G45.9) Active confirmed Problem Localized, primary osteoarthritis of the pelvic region and thigh (346986796) 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) Active confirmed Problem Arthritis of right knee (7140978807958794) Arthritis of knee, 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) Active confirmed Problem Sciatica (99806409) Left sciatic nerve pain (M54.32) Active confirmed Problem Chronic anemia (298760276) Chronic anemia (D64.9) Active confirmed Problem Localized, primary osteoarthritis of the wrist (146004522) 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 Vital Signs Heart Rate 83 /min 01/19/2025 Blood pressure diastolic 74 mm Hg 01/19/2025 Height 64 in 01/19/2025 Blood pressure systolic 133 mm Hg 01/19/2025 Weight 125.2 lbs 01/19/2025 BMI 21.49 kg/m2 01/19/2025 Encounters Encounter Location Date Provider Diagnosis [facility] [address] [place] [id number] 03/11/2024 R Mono Helder Vitamin B12 deficien cy E53.8 [facility] [address] [place], [place] [id number] 03/30/2024 R Mono Helder Vitamin B12 deficien cy E53.8 [facility] [address] [place], [place] [id number] 04/15/2024 Daniel Lindale Vitamin B12 deficien cy E53.8 [facility] [address] [place], [place] [id number] 04/27/2024 Claudette Rees Sinusitis J32.9 [facility] [address] [place], [place] [id number] 05/06/2024 R Mono Heldre Vitamin B12 deficien cy E53.8 [facility] [address] [place] [id number] 05/21/2024 R Mono Helder B12 vitamin deficien cy 266.2 [facility] [address] [place], [place] [id number] 06/05/2024 R Mono Helder Vitamin B 12 deficie ncy E53.8 [facility] [address] [place] [id number] 06/23/2024 R Mono Helder Leg edema R60.0 ; Hypertension I10 ; Chronic renal insufficiency N18.9 ; Hypertriglyceridemia E78.1 ; Vitamin B 12 deficiency E53.8 and Pulmonary fibrosis J84.10 [facility] [address] [place], [place] [id number] 07/16/2024 R Mono Helder Arthritis of knee, r ight M19.90 ; Bakers cyst of knee, right M71.21 and Vitamin B 12 deficiency E53.8 [facility] [address] [place] [id number] 08/10/2024 R Mono Helder Vitamin B 12 deficie ncy E53.8 [facility] [address] [place] [id number] 08/24/2024 R Mono Helder Vitamin B 12 deficie ncy E53.8 [facility] [address] [facility] [address] [place], [place] [id number] 10/09/2024 R Mono Helder Vitamin B 12 deficie ncy E53.8 and Hypertension I10 [facility] [address] [facility] [address] [place], [place] [id number] 10/28/2024 R Mono Helder Vitamin B 12 deficie ncy E53.8 [facility] [address] [facility] [address] [place], [place] [id number] 11/12/2024 R Mono Helder Vitamin B 12 deficie ncy E53.8 [facility] [address] [place], [place] [id number] 12/17/2024 R Mono Helder Vitamin B 12 deficie ncy E53.[address] [facility] [address] [place], [place] [id number] 12/24/2024 Mar Paz Acute left ankle talita n M25.572 ; BMI 21.0-21.9, adult Z68.21 ; Pulmonary fibrosis J84.10 ; Crohn disease K50.90 ; Chronic anemia D64.9 and Crohn's disease of large intestine without complications K50.[address] [facility] [address] [place], [place] [id number] 12/29/2024 R Mono Helder Adult general medica l examination Z00.00 ; Paresthesia R20.2 ; Iron deficiency anemia D50.9 ; Leg edema R60.0 ; Pulmonary fibrosis J84.10 ; Anxiety F41.9 ; Crohn disease K50.90 ; BMI 20.0-20.9, adult Z68.20 ; Osteopenia M85.80 ; History of TB (tuberculosis) Z86.11 ; Hypertension I10 and Hypertriglyceridemia E78.1 [facility] [address] [place], [place] [id number] 01/11/2025 Daniel Lindale Vitamin B 12 deficie ncy E53.[address] [facility] [address] [place], [place] [id number] 01/19/2025 R Mono Helder Acute left ankle talita n M25.572 ; Eczema L30.9 and BMI 21.0-21.9, adult Z68.21 [facility] [address] [place], [place] [id number] 04/21/2024 R Mono Helder [facility] [address] [place] [id number] 06/25/2024 R Mono Helder [facility] [address] [place], [place] [id number] 06/25/2024 R Mono Helder [facility] [address] [place], [place] [id number] 10/12/2024 R Mono Helder [facility] [address] [place] [id number] 12/17/2024 R Mono Helder [facility] [address] [place] [id number] 01/03/2025 R Mono Helder [facility] [address] [place], [place] [id number] 01/04/2025 R Mono Helder Anxiety F41.9 [facility] [address] [place] [id number] 01/11/2025 R Mono Helder Hypertension I10 [facility] [address] [place], [place] [id number] 01/21/2025 R Mono Helder [facility] [address] [place] [id number] 02/04/2025 R Mono Helder Hypertension I10 [facility] [address] [place], [place] [id number] 02/25/2025 R Mono Helder Assessments Encounter Date Diagnosis (ICD Code) Assessment Notes Treatment Notes Treatment Clinical Notes Section Notes 03/11/2024 Vitamin B12 deficien cy (ICD-10 - [...] cream. If symptoms persist consider physical therapy. 08/24/2024 Vitamin B 12 deficie ncy (ICD-10 - E53.8) 10/09/2024 Vitamin B 12 deficie ncy (ICD-10 - E53.8) 10/28/2024 Vitamin B 12 deficie ncy (ICD-10 - E53.8) 11/12/2024 Vitamin B 12 deficie ncy (ICD-10 - E53.8) 12/17/2024 Vitamin B 12 deficie ncy (ICD-10 - E53.8) 12/29/2024 Paresthesia (ICD-10 - R20.2) 12/29/2024 Adult general medica l examination (ICD-10 - Z00.00) Patient instructed to return to office Annually for Annual Wellness Visits to include annual screenings of Pain assessment, Functional Ability assessment, Cognitive Ability assessment, Fall Risk assessment, Depression screening and Bladder control screening. 01/11/2025 Hypertension (ICD-10 - I10) 01/11/2025 Vitamin B 12 deficie ncy (ICD-10 - E53.8) 01/19/2025 Eczema (ICD-10 - L30.9) 01/19/2025 Acute left ankle talita n (ICD-10 - M25.572) Recommend compression socks 02/04/2025 Hypertension (ICD-10 - I10) 01/04/2025 Anxiety (ICD-10 - F41.9) 12/24/2024 Acute left ankle talita n (ICD-10 - M25.572) Patient would like to try steroids before getting x-rays. 12/24/2024 BMI 21.0-21.9, adult (ICD-10 - Z68.21) 08/10/2024 Vitamin B 12 deficie ncy (ICD-10 - E53.8) 12/24/2024 Pulmonary fibrosis (ICD-10 - J84.10) 01/19/2025 BMI 21.0-21.9, adult (ICD-10 - Z68.21) 12/29/2024 Iron deficiency anem ia (ICD-10 - D50.9) 10/09/2024 Hypertension (ICD-10 - I10) 07/16/2024 Vitamin B 12 deficie ncy (ICD-10 - E53.8) 06/23/2024 Chronic renal insufficiency (ICD-10 - N18.9) 06/23/2024 Hypertriglyceridemia (ICD-10 - E78.1) 12/29/2024 Leg edema (ICD-10 - R60.0) 12/24/2024 Crohn disease (ICD-1 0 - K50.90) 12/29/2024 Pulmonary fibrosis (ICD-10 - J84.10) 12/24/2024 Chronic anemia (ICD- 10 - D64.9) 06/23/2024 Vitamin B 12 deficie ncy (ICD-10 - E53.8) 06/23/2024 Pulmonary fibrosis (ICD-10 - J84.10) 12/29/2024 Anxiety (ICD-10 - F41.9) 12/24/2024 Crohn's disease of large intestine without complications (ICD-10 - K50.10) 12/29/2024 Crohn disease (ICD-1 0 - K50.90) [...] Date MEDICARE PART B [address] [address] [place] [address] [id number] PARVIN MALONE Self - patient is the insured [facility] [employer] [address] [place] [id number] PARVIN MALONE Self - patient is the [...] EGD 2019 Hospitalization History Reason Date(Month/Year) Hypertension- H ER 12/28/2017
--- NOTE | 2025-03-05 15:13 | CT_ITS ---
PROCEDURE INFORMATION: Exam: CT Abdomen And Pelvis With Contrast Exam date and time: 03/05/2025 4:22 PM Age: 84 years old Clinical indication: Abdominal pain; Additional info: Upper abdominal pain, history of bowel resection TECHNIQUE: Imaging protocol: Computed tomography of the abdomen and pelvis with contrast. Radiation optimization: All CT scans at this facility use at least one of these dose optimization techniques: automated exposure control; mA and/or kV adjustment per patient size (includes targeted exams where dose is matched to clinical indication); or iterative reconstruction. Contrast material: ISOVUE; Contrast volume: 75 ml; Contrast route: IV; COMPARISON: CT LUMBAR SPINE WO CON 03/05/2025 4:19 PM FINDINGS: Lungs: There is minimal consolidation in the lingula with air bronchograms. Minimal presumed atelectasis in the lower lobes. Diaphragm: There is a small-sized hiatal hernia. The stomach is thickened suggesting gastritis. There is also thickening of the proximal duodenum. The colon is diffusely thickened. There are proximal colonic postsurgical changes suggestive of partial colectomy. Surgical clips are seen in the right lower quadrant. Liver: The liver is unremarkable. Gallbladder and biliary ducts: Status post cholecystectomy. Common bile duct measures 9 mm. Pancreas: Atrophy of the pancreas. Spleen: Splenic granulomata. Adrenal glands: The adrenal glands are unremarkable. Kidneys and ureters: There is a cyst in the lower pole of the left kidney measuring 2.9 cm. Additional subcentimeter upper pole hypodensity left kidney too small to characterize likely cysts. No hydronephrosis or obstructing stone seen. Stomach and bowel: There are small bowel air-fluid levels in the left midabdomen with mild distension to 2.8 cm maximum size. No high-grade obstruction is seen. Appendix: The appendix is not visualized likely surgically absent. Intraperitoneal space: No free air. No significant ascites. Retroperitoneal space: Visualized retroperitoneal structures grossly negative with no obvious hematoma identified. Vasculature: Patent portal vasculature. There is atherosclerosis of the aorta. No aneurysm. The visualized IVC is unremarkable. The celiac and SMA are patent. Lymph nodes: There are subcentimeter retroperitoneal lymph nodes present. None are pathologically enlarged by size criteria. Urinary bladder: The bladder is unremarkable as visualized. Reproductive: The uterus is present. Bones/joints: Demineralized bones. Acute appearing compression fracture of the inferior endplate of L2 again identified. Soft tissues: There are postsurgical changes in the ventral abdominal wall. Small fat containing hernia in the midline inferiorly. Gluteal injection granuloma. Soft tissues are otherwise unremarkable. IMPRESSION: 1. Status post right hemicolectomy. There are diffuse colitis changes. Scattered small bowel air-fluid levels likely related to enteritis with differential diagnosis of the ileus. No high-grade small bowel obstruction is seen. Gastroduodenitis changes also present. 2. Minimal consolidation in the lingula. Correlate for possible pneumonia. 3. L2 acute appearing inferior endplate compression fracture again seen. COMMENTS: Consistent with the [employer]'s Incidental Findings Committee white paper (J Am Rigo Radiol 2018): Any incidental renal lesion less than 1 cm or classified as too small to characterize, or any incidental cystic renal lesion characterized as simple-appearing, is likely benign. No follow-up imaging is recommended for these lesions per consensus recommendations based on imaging criteria.
--- NOTE | 2025-03-05 15:13 | CT_ITS ---
PROCEDURE INFORMATION: Exam: CT Lumbar Spine Without Contrast Exam date and time: 03/05/2025 4:19 PM Age: 84 years old Clinical indication: Low back pain TECHNIQUE: Imaging protocol: Computed tomography of the lumbar spine without contrast. Radiation optimization: All CT scans at this facility use at least one of these dose optimization techniques: automated exposure control; mA and/or kV adjustment per patient size (includes targeted exams where dose is matched to clinical indication); or iterative reconstruction. COMPARISON: No relevant prior studies available. FINDINGS: Bones/joints: The bones are demineralized. The alignment is near anatomic. There is mild loss of height of the inferior endplate of the L2 vertebrae with visible fracture line anteriorly the other vertebral body heights are maintained. There is slight retropulsion of the inferior aspect of the L2 vertebra not causing significant spinal canal stenosis. There are mild multilevel degenerative changes. Diaphragm: Partially seen hiatal hernia. Intraperitoneal space: Please see separately dictated abdomen/pelvis CT report for intra-abdominal/intrapelvic findings. Soft tissues: Soft tissues are unremarkable as visualized. IMPRESSION: There is an acute appearing fracture of the inferior endplate of L2 with minimal posterior/inferior retropulsion not causing significant spinal canal stenosis. This can be further evaluated with an MRI for follow-up.
--- NOTE | 2025-03-05 15:13 | XR_ITS ---
PROCEDURE INFORMATION: Exam: XR Chest Exam date and time: 03/05/2025 4:29 PM Age: 84 years old Clinical indication: Pain; Chest pressure; Additional info: Upper abdominal pain, eval lower lobes TECHNIQUE: Imaging protocol: Radiologic exam of the chest. Views: 1 view. COMPARISON: CR CXR2V XR chest 2V 06/09/2018 2:38 PM FINDINGS: Airway: The trachea is midline. Lungs: No focal consolidation. Pleural spaces: No significant pleural effusion. No pneumothorax. Heart/Mediastinum: Stable heart size. Bones/joints: Stable bones. Soft tissues: Soft tissues are unremarkable as visualized. IMPRESSION: No acute findings.
--- NOTE | 2025-03-05 15:18 | HMH.EDGENADL ---
Discharge Plan Disposition Patient Disposition: Admitted Condition: Fair Clinical Impressions Clinical Impression: Closed L2 vertebral fracture, Acute hypokalemia, Hypomagnesemia, Intractable back pain Discharge ED Provider: Alireza Tamez Adult HPI General Chief complaint: PAIN Stated complaint: Back Pain Time Seen by Provider: 03/05/25 15:02 Mode of Arrival: EMS Source of Information: Patient Description of Symptoms (Recalled from ER Triage Doc. by RN): pt presents to the er via [facility] for lower back pain that started a few days ago, denies any injury, rates pain 7/10, intermittent, and sharp, states the pain increases movement, reports decreased appetite pt states she doesn't feel like getting up and eating due to pain History of Present Illness HPI narrative: This is an 84-year-old female patient, with past medical history of Crohn's disease and uncontrolled hypertension, who is presented to the emergency department today for evaluation of back pain. I did recently evaluate this patient earlier in the week. At that time she stated that she had not been taking her potassium supplements in 5 days because she was feeling too weak to get out of bed to take this medication. She was hypokalemic and her potassium was replaced and she was administered Robaxin with good control of symptoms. She was ambulatory in the emergency department and was able to be discharged home. She states that since discharge she has continued to take Robaxin and her symptoms have improved, however they have not resolved. She states that she is having diarrhea secondary to her Crohn's disease and she is unable to get out of bed in time to get to the bathroom to pass a bowel movement. This is causing her significant distress as she is soiling her close and the sheets of her bed. She has not had any urinary retention, no lower extremity sensory changes or motor deficits, no saddle anesthesia, and no fevers. Related Data Home Medications ?Medication ?Instructions ?Recorded ?Confirmed azathioprine 50 mg tablet 1 tab PO DAILY Cronhs 12/28/17 07/03/24 fenofibrate nanocrystallized 48 mg 1 tab PO DAILY Cholesterol 12/28/17 07/03/24 tablet fluticasone propionate 50 1 spray DAILY ALLERGIES 12/28/17 07/03/24 mcg/actuation nasal spray,suspension nebivolol 10 mg tablet (Bystolic) 10 mg PO DAILY Hypertension 12/28/17 07/03/24 nebivolol 10 mg tablet (Bystolic) 10 mg PO DAILY Hypertension 12/28/17 07/03/24 potassium chloride 20 mEq oral 1 tab PO DAILY Supplement 12/28/17 07/03/24 packet (Klor-Con) Previous Rx's ?Medication ?Instructions ?Recorded clonidine HCl 0.1 mg tablet 0.1 mg PO TID PRN Blood Pressure - 12/28/17 High #20 tabs diclofenac sodium 1 % topical gel 2 g topical QID #100 grams 07/03/24 (Arthritis Pain (diclofenac)) tizanidine 2 mg capsule 2 mg PO BID PRN muscle spasticity 07/03/24 #14 caps methocarbamol 750 mg tablet 750 mg PO Q8H #90 tabs 03/01/25 Allergies Allergy/AdvReac Type Severity Reaction Status Date / Time erythromycin base Allergy Fever Verified 02/15/25 11:43 Penicillins Allergy Rash Verified 02/15/25 11:43 streptomycin Allergy Fever Verified 02/15/25 11:43 tetracycline Allergy Rash Verified 02/15/25 11:43 PFSH PFSH Disclaimer: The information contained in this section may have been updated after the patient was seen, as this information can be updated by other users. Medical History (Updated 03/06/25 @ 00:56 by Alireza Tamez DO) Crohn disease HTN (hypertension) Surgical History (Updated 03/05/25 @ 19:35 by Norman Humphreys MD) History of partial colectomy Social History Smoking Status: Never smoker alcohol intake: never current occupational status: retired Travel in the last 8 weeks?: None Have you lived/traveled outside US in past 30 days?: No Contact w/someone who lives/traveled outside US past 30 days?: No Exposure to someone with infectious disease in past 14 days?: No Do you have a fever (greater than 100.4 F or 38 C)?: No Have you tested positive for COVID-19?: No Exposed to someone with COVID-19 in past 14 days?: No Do you have a sore throat?: No Do you have a cough?: No Do you have any weakness?: No Do you have any diarrhea?: No Are you experiencing any unusual bleeding?: No Do you have any muscle aches/pain?: No Do you have any abdominal pain?: No Are you experiencing loss of taste or smell?: No Other Medical History Have you received the Pneumonia Vaccine: Yes ROS Obtained: Yes Systems reviewed as appropriate & no additional complaints except as documented Physical Exam General General appearance: other (See MDM) Respiratory Respiratory exam: Present other (See MDM) Cardiovascular Cardiovascular exam: Present other (See MDM) Neurological Exam Neurological exam: Present other (See MDM) Medical Decision Making Medical Records Medical records reviewed: Yes I reviewed the patient's medical records. Screening: Per USPSTF and CDC recommendations, given the prevalence of disease in our region, it is our hospital?s policy to screen for HIV and viral Hepatitis for all patients aged 18 and over and those with ongoing risk factors. Jak Inquiry Pt receiving controlled substance: No Jak was queried for this patient: No Vital Signs: 03/05/25 14:41 03/05/25 15:30 03/05/25 16:00 Temperature 98.0 F Temperature Source Oral Pulse Rate 110 H 91 H Pulse Rate [Left Radial] 110 H Respiratory Rate 16 15 18 Blood Pressure 166/94 H 173/83 H Blood Pressure [Right Arm] 162/97 H Blood Pressure Mean [Right Arm] 118 Blood Pressure Source [Right Arm] Automatic Cuff Blood Pressure Position [Right Arm] Sitting 02 Sat by Pulse Oximetry 98 98 96 Oxygen Delivery Method Room Air 03/05/25 17:00 03/05/25 17:30 03/05/25 18:00 Temperature Temperature Source Pulse Rate 93 H 95 H 93 H Pulse Rate [Left Radial] Respiratory Rate 92 H 20 20 Blood Pressure 167/84 H 164/92 H 160/88 H Blood Pressure [Right Arm] Blood Pressure Mean [Right Arm] Blood Pressure Source [Right Arm] Blood Pressure Position [Right Arm] 02 Sat by Pulse Oximetry 98 98 100 Oxygen Delivery Method 03/05/25 18:30 03/05/25 19:15 Temperature 97.8 F Temperature Source Oral Pulse Rate 94 H 94 H Pulse Rate [Left Radial] Respiratory Rate 20 20 Blood Pressure 165/88 H 165/88 H Blood Pressure [Right Arm] Blood Pressure Mean [Right Arm] Blood Pressure Source [Right Arm] Blood Pressure Position [Right Arm] 02 Sat by Pulse Oximetry 98 Oxygen Delivery Method Room Air Lab Data Lab Results 03/05/25 15:30: WBC 6.4, RBC 4.06 L, Hgb 12.6, Hct 37.9, MCV 93.3, MCH 31.0, MCHC 33.2, RDW 14.6, Plt Count 295, MPV 9.7, Neut % (Auto) 83.5 H, Lymph % (Auto) 7.4 L, [place] % (Auto) 6.6, Eos % (Auto) 1.3, Baso % (Auto) 0.9, Neut # (Auto) 5.3, Lymph # (Auto) 0.5 L, [place] # (Auto) 0.4, Eos # (Auto) 0.1, Baso # (Auto) 0.1, Total Counted 100, Neutrophils % (Manual) 95 H, Lymphocytes % (Manual) 4 L, Basophils % (Manual) 1.0, Platelet Estimate Normal, Elliptocytes 1+, Sodium 142, Potassium 2.8 L*, Chloride 108 H, Carbon Dioxide 22, Anion Gap 14.8, BUN 22 H, Creatinine 1.40 H, Estimated Creat Clear 26, Estimated GFR 36 L, Est GFR ( Amer) 43 L, Glucose 90, Calcium 9.3, Magnesium 1.5 L, Total Bilirubin 0.5, AST 28, ALT 19, Alkaline Phosphatase 88, Total Creatine Kinase 44, Total Protein 6.7, Albumin 4.0, Globulin 2.7, Albumin/Globulin Ratio 1.5, Lipase 90 03/05/25 15:30 03/05/25 20:30 Orders (Tests/Meds): ED MEDICATIONS Generic Name Dose Route Start Last Admin Trade Name Freq PRN Reason Stop Dose Admin Acetaminophen 650 mg 03/05/25 18:02 03/05/25 21:32 Acetaminophen 325mg Tab PO 04/04/25 18:01 650 mg Q4HP PRN Administration Fever or Mild Pain (1-3) Alprazolam 0.5 mg 03/05/25 19:39 Alprazolam 0.5mg Tablet PO 04/04/25 19:38 DAILYP PRN Anxiety Amlodipine Besylate 10 mg 03/06/25 09:00 Amlodipine 10mg Tablet PO 04/05/25 08:59 DAILY SAMIA Azathioprine 50 mg 03/06/25 09:00 Azathioprine 50 Mg Tablet PO 04/05/25 08:59 DAILY SAMIA Clonidine HCl 0.1 mg 03/05/25 23:37 Clonidine 0.1mg Tablet PO 04/04/25 23:36 TIDP PRN Blood Pressure - High Enoxaparin Sodium 40 mg 03/06/25 09:00 Enoxaparin 40mg/0.4ml Syringe SUBCUT 04/05/25 08:59 DAILY SAMIA Potassium Chloride/Water 100 mls @ 100 mls/hr 03/05/25 22:57 03/06/25 00:29 Potassium Chloride 10meq/100ml Ivpb IV 03/05/25 23:56 100 mls/hr ONCE ONE Administration Ketorolac Tromethamine 15 mg 03/05/25 18:02 Ketorolac 30mg/Ml Vial IV 03/10/25 18:01 Q6HP PRN Moderate Pain (4-6) Lisinopril 20 mg 03/06/25 09:00 Lisinopril 20mg Tablet PO 04/05/25 08:59 DAILY SAMIA Morphine Sulfate 2 mg 03/05/25 18:02 Morphine 2mg/Ml Syringe IV 04/04/25 18:01 Q2HP PRN Severe Pain (7-10) Tizanidine HCl 2 mg 03/05/25 19:39 Tizanidine 4mg Tablet PO 04/04/25 20:59 TID PRN Muscle Spasm Discontinued Medications Generic Name Dose Route Start Last Admin Trade Name Freq PRN Reason Stop Dose Admin Lactated Ringer's 500 mls @ 999 mls/hr 03/05/25 15:13 03/05/25 16:02 Lactated Ringer's 1000 Ml Bag IV 03/05/25 15:43 Infused .Q31M ONE Infusion Potassium Chloride/Water 100 mls @ 50 mls/hr 03/05/25 16:03 03/05/25 23:11 Potassium Chloride 20meq/100ml Ivpb IV 03/05/25 20:02 Infused Q2H SAMIA Infusion Magnesium Sulfate 2 gm in 50 mls @ 50 mls/hr 03/05/25 18:02 03/06/25 00:31 Magnesium Sulfate 2gm/50ml Premix IV 03/05/25 19:01 Infused ONCE ONE Infusion Iopamidol 75 ml 03/05/25 16:31 03/05/25 16:32 Iopamidol-370 (76%);100ml Bottle IV 03/05/25 16:32 75 ml ONCE ONE Administration Methocarbamol 1,000 mg 03/05/25 15:33 03/05/25 15:38 Methocarbamol 500mg Tablet PO 03/05/25 15:34 1,000 mg ONCE ONE Administration Sodium Chloride 10 ml 03/05/25 16:31 03/05/25 16:32 Sodium Chloride 0.9% 10ml Syr (Rad Only) IV 03/05/25 16:32 10 ml ONCE ONE Administration ORDERS Category Date Time Status CT abdomen pelvis w con Stat Cat Scan 03/05/25 15:[address] lumbar spine wo con Stat Cat Scan 03/05/25 15:13 Completed CXR --portable [XR chest portable] Stat Exams 03/05/25 15:13 Completed Basic Metabolic Panel Routine Lab 03/05/25 20:30 Completed CBC w/Auto Diff [Complete Blood Count Auto Diff] Stat Lab 03/05/25 15:30 Completed CK [Creatine Kinase] Stat Lab 03/05/25 15:30 Completed CMP [Comprehensive Metabolic Panel] Stat Lab 03/05/25 15:30 Completed Complete Blood Count Auto Diff AMLAB Lab 03/06/25 06:00 Ordered Comprehensive Metabolic Panel AMLAB Lab 03/06/25 06:00 Ordered Lipase Stat Lab 03/05/25 15:30 Completed Magnesium AMLAB Lab 03/06/25 06:00 Ordered Magnesium Stat Lab 03/05/25 15:30 Completed Prealbumin Stat Lab 03/05/25 15:30 Received Medical Decision Narrative: In summary, this is an 84-year-old female patient who is presented to the emergency department today for back pain and muscle spasms. She is not having any red flag back symptoms aside from her age. Comorbidities include hypertension as well as Crohn's disease. She is soiling her close as well as her bed sheets secondary to being unable to get out of bed quick enough to get to the bathroom. On initial evaluation of the patient they were resting comfortably in no acute distress and nontoxic in appearance. They are hemodynamically stable, saturating well room air, and are neurologically intact. On physical examination of the patient she does have midline lumbar spine tenderness that was not present on her last exam. She also has hypertonicity of the paraspinal lumbar musculature. She has normal sensation in all terminal nerve distributions of the bilateral lower extremities. She has 5-5 strength in bilateral lower extremities. She has full range of motion passively of her hips bilaterally with flexion extension internal rotation and external rotation. She also has some vague epigastric abdominal pain. Differential diagnosis includes fragility fracture of the spine, muscle spasms, hypokalemia, hyponatremia, acute kidney injury, rhabdomyolysis, pancreatitis, intra-abdominal abscess, among others Workup was initiated with hematologic labs as well as a CT scan of the abdomen and pelvis as well as lumbar spine. We have administered 1 L of lactated Ringer's to the patient and she does appear clinically dehydrated. CT scan of the lumbar spine was significant for a endplate fracture of the L2 vertebra. Again, this is an atraumatic back fracture. given these findings I had an interactive discussion with Dr. Car of the orthopedic spine surgery service at [facility]. He states that there is no need for transfer for operative intervention. He states that she does not need bracing at this time. He will follow her up in clinic in a week. Labs were personally interpreted by me and demonstrated hypokalemia with a potassium of 2.8. We have ordered potassium replacement at this time with 40 mEq of IV potassium given every 4 hours. The patient did not respond well to the Robaxin that we provided to her here in the emergency department. Given that she is markedly hypokalemic and this is worse than prior and she is having pain associated with this fracture, I do feel she necessitates admission to the hospital. I had an interactive discussion with the internal medicine service who has agreed to evaluate the patient the emergency department. After discussion of their evaluation they have agreed to admit the patient to their service and except primary responsibility the patient room for Critical Care Critical Care Time Critical Care Time: No
[2025-03-05] MEDS: LACTATED RINGERS 1000ML 500 ML 999 ML IV (15:24)
[2025-03-05] MEDS: METHOCARBAMOL 500MG TABLET 1000 MG PO (15:38)
[2025-03-05 15:46] LABS: Hematocrit 37.9 % (37.0-47.0); Hemoglobin 12.6 g/dL (12.2-16.2); Immature Granulocytes % 0.3 %; Mean Corpuscular HGB Conc 33.2 g/dL (31.8-35.4); Mean Corpuscular Hemoglobin 31.0 pg (27.0-31.2); Mean Corpuscular Volume 93.3 fl (81-99); Nucleated Red Blood Cells % 0 %; Platelet Count 295 K/mm3 (142-424); Red Blood Count 4.06 M/mm3 (4.20-5.40); Red Cell Distribution Width-SD 50.0 fL; White Blood Count 6.4 K/mm3 (4.8-10.8)
--- NOTE | 2025-03-05 15:50 | PC.NURSE ---
I rounded on the pt. I helped her change her brief, reposition in bed and took her a warm blanket for comfort. no other needs voiced. no new complaints. call bruce in reach.
[2025-03-05 15:51] LABS: Alanine Aminotransferase 19 U/L (12-78); Albumin Level 4.0 g/dl (3.5-5.0); Albumin/Globulin Ratio 1.5 (1.1-1.8); Alkaline Phosphatase 88 U/L (38-126); Anion Gap 14.8 mEq/L (5-15); Aspartate Amino Transferase 28 U/L (14-36); Bilirubin,Total 0.5 mg/dl (0.2-1.3); Blood Urea Nitrogen 22 mg/dl (7-17); Calcium 9.3 mg/dl (8.4-10.2); Carbon Dioxide 22 mmol/L (22.0-30.0); Chloride 108 mmol/L (98-107); Creatine Kinase 44 U/L (30-135); Creatinine Clearance Estimated 26 mL/min (50-200); Creatinine,Serum 1.40 mg/dl (0.52-1.04); Estimated Glomerular Filt Rate 36 ml/min (>60); GFR (African American) 43 ML/MIN (>60); Globulin 2.7 g/dL (1.3-3.2); Glucose 90 mg/dl (74-100); Lipase 90 U/L (23-300); Magnesium 1.5 mg/dl (1.6-2.3); Sodium 142 mmol/L (136-145); Total Protein,Serum 6.7 g/dl (6.3-8.2)
[2025-03-05 15:53] LABS: Potassium 2.8 mmoL/L (3.5-5.1)
--- NOTE | 2025-03-05 16:03 | HMH.ITSTN ---
Called ER and spoke with nurse about GFR. Told her it fell in range for fluids , she spoke with doctor and told me to go ahead and scan that patient did not need the fluids
[2025-03-05] MEDS: IOPAMIDOL-370 (76%);100ML BOTTLE 75 ML IV (16:32)
[2025-03-05] MEDS: SODIUM CHLORIDE 0.9% 10ML SYR (RAD ONLY) 10 ML IV (16:32)
--- NOTE | 2025-03-05 16:52 | PC.NURSE ---
Called [facility] for spinal consult and power shared images
[2025-03-05 17:11] LABS: Total Cells Counted 100
--- NOTE | 2025-03-05 18:35 | PC.NURSE ---
[facility] notified of the need for a bed to admit the pt.
--- NOTE | 2025-03-05 19:30 | PC.NURSE ---
pt arrived on the floor at this time.
--- NOTE | 2025-03-05 19:34 | EXP.HP ---
History of Present Illness *Admission Date: 03/05/25 *Reason for visit:: Weakness, back pain *History of present illness: Mrs. Ramos is a pleasant 84-year-old female with history of chron's disease and hypertension. Presented to the ER via EMS due to worsening low back pain. Presented a few days ago and was discharged home after treatment of her low potassium. Unfortunately her potassium is low again today on arrival. States her pain is acceptable when she is laying flat or up moving but is severe at 7 out of 10 when she is trying to get up or moving from a laying or seated position. It is intermittent and sharp and in her lower back. Reports a decrease in appetite to a bit. Denies nausea or vomiting. Has daily loose stools secondary to her Crohn's. No worse than normal. She has had a hard time making it to the bathroom however due to the pain and has had accidents on herself. Potassium on admission of 2.8, magnesium 1.5. Kidney function more or less at baseline BUN 22, creatinine 1.5. White count normal at 6.4. Imaging of abdomen shows chronic findings of her Crohn's with some mild inflammation. Has some lingular abnormality on her chest imaging however does not have short of breath, cough, oxygen requirement and has a normal white count. Medicine consulted for admission and further management of her hypokalemia and a new finding of an L2 compression fracture on CT of her abdomen and pelvis. Necessitating pain control. was consulted and recommended follow-up as an outpatient. They are supposed to contact patient about her L2 compression fracture and further management. On arrival to the floor, patient is comfortable laying supine. Denies chest pain or shortness of breath. Tolerating IV electrolyte replacement. Pleasant on exam. Denies any blood in her stool or increase stool output. States she takes Imodium most days and it helps with her loose stools. Denies any recent flare hospitalizations for Crohn's. Denies any recent antibiotics. [facility] Disclaimer: The information contained in this section may have been updated after the patient was seen, as this information can be updated by other users. Medical History (Updated 03/05/25 @ 20:47 by Norman Humphreys MD) Crohn disease HTN (hypertension) Surgical History (Updated 03/05/25 @ 19:35 by Norman Humphreys MD) History of partial colectomy Social History Smoking Status: Never smoker alcohol intake: never current occupational status: retired Travel in the last 8 weeks?: None Have you lived/traveled outside US in past 30 days?: No Contact w/someone who lives/traveled outside US past 30 days?: No Exposure to someone with infectious disease in past 14 days?: No Do you have a fever (greater than 100.4 F or 38 C)?: No Have you tested positive for COVID-19?: No Exposed to someone with COVID-19 in past 14 days?: No Do you have a sore throat?: No Do you have a cough?: No Do you have any weakness?: No Do you have any diarrhea?: No Are you experiencing any unusual bleeding?: No Do you have any muscle aches/pain?: No Do you have any abdominal pain?: No Are you experiencing loss of taste or smell?: No Other Medical History Have you received the Pneumonia Vaccine: Yes Review of Systems Review of Systems Review of systems (narrative): 14 point review of systems performed, pertinent positives and negatives as per HPI Meds Home Medications and Allergies Home Medications ?Medication ?Instructions ?Recorded ?Confirmed ?Type azathioprine 50 mg tablet 1 tab PO DAILY Cronhs 12/28/17 07/03/24 History clonidine HCl 0.1 mg tablet 0.1 mg PO TID PRN Blood Pressure - 12/28/17 07/03/24 Rx High #20 tabs fenofibrate nanocrystallized 48 mg 1 tab PO DAILY Cholesterol 12/28/17 07/03/24 History tablet fluticasone propionate 50 1 spray DAILY ALLERGIES 12/28/17 07/03/24 History mcg/actuation nasal spray,suspension nebivolol 10 mg tablet (Bystolic) 10 mg PO DAILY Hypertension 12/28/17 07/03/24 History nebivolol 10 mg tablet (Bystolic) 10 mg PO DAILY Hypertension 12/28/17 07/03/24 History potassium chloride 20 mEq oral 1 tab PO DAILY Supplement 12/28/17 07/03/24 History packet (Klor-Con) diclofenac sodium 1 % topical gel 2 g topical QID #100 grams 07/03/24 07/03/24 Rx (Arthritis Pain (diclofenac)) tizanidine 2 mg capsule 2 mg PO BID PRN muscle spasticity 07/03/24 07/03/24 Rx #14 caps methocarbamol 750 mg tablet 750 mg PO Q8H #90 tabs 03/01/25 Rx New Prescriptions to Start Prescriptions: Allergies Allergy/AdvReac Type Severity Reaction Status Date / Time erythromycin base Allergy Fever Verified 02/15/25 11:43 Penicillins Allergy Rash Verified 02/15/25 11:43 streptomycin Allergy Fever Verified 02/15/25 11:43 tetracycline Allergy Rash Verified 02/15/25 11:43 Exam Data for Last 24 hours Vital signs and Labs for Last 24 Hours: Temp Pulse Resp BP Pulse Ox O2 Del Method 97.8 F 94 H 20 165/88 H 98 Room Air 03/05/25 19:15 03/05/25 19:15 03/05/25 19:15 03/05/25 19:15 03/05/25 18:30 03/05/25 19:15 Laboratory Results - last 24 hr 03/05/25 15:30: WBC 6.4, RBC 4.06 L, Hgb 12.6, Hct 37.9, MCV 93.3, MCH 31.0, MCHC 33.2, RDW 14.6, Plt Count 295, MPV 9.7, Neut % (Auto) 83.5 H, Lymph % (Auto) 7.4 L, [place] % (Auto) 6.6, Eos % (Auto) 1.3, Baso % (Auto) 0.9, Neut # (Auto) 5.3, Lymph # (Auto) 0.5 L, [place] # (Auto) 0.4, Eos # (Auto) 0.1, Baso # (Auto) 0.1, Total Counted 100, Neutrophils % (Manual) 95 H, Lymphocytes % (Manual) 4 L, Basophils % (Manual) 1.0, Platelet Estimate Normal, Elliptocytes 1+, Sodium 142, Potassium 2.8 L*, Chloride 108 H, Carbon Dioxide 22, Anion Gap 14.8, BUN 22 H, Creatinine 1.40 H, Estimated Creat Clear 26, Estimated GFR 36 L, Est GFR ( Amer) 43 L, Glucose 90, Calcium 9.3, Magnesium 1.5 L, Total Bilirubin 0.5, AST 28, ALT 19, Alkaline Phosphatase 88, Total Creatine Kinase 44, Total Protein 6.7, Albumin 4.0, Globulin 2.7, Albumin/Globulin Ratio 1.5, Lipase 90 I & O for Last 24 hours: Intake & Output 03/02/25 03/03/25 03/04/25 03/05/25 23:59 23:59 23:59 23:59 Intake Total 500 / 500 Balance 500 / 500 Weight 56.699 kg Constitutional Constitutional: mild distress, thin, chronically ill appearing and cooperative *Routine HEENT Exam Head: Present normocephalic Eye: Present EOMI and PERRL ENT: Present mucous membranes moist *Routine Neck Exam Neck: Present supple; Absent lymphadenopathy *Routine Respiratory Exam Respiratory: Present CTA bilaterally; Absent rhonchi, wheezes or crackles *Routine Cardiovascular Exam Cardiovascular: Present RRR *Routine Abdominal Exam Abdominal: Present soft and normoactive bowel sounds; Absent tenderness, distended or rebound *Routine Rectal Exam Rectal:: deferred *Routine Genitalia Exam Genitalia:: deferred *Routine Extremities Exam Extremities: Absent cyanosis, clubbing or edema Routine Back/Spine/Pelvis Exam Back/Spine: Present vertebral tenderness (Mild over lumbar region) *Routine Skin Exam Skin: Present intact and warm; Absent rash *Routine Neurological Exam Neurological: Present alert, oriented X3 and moving all extremities; Absent altered mental status Assessment and Plan *Assessment and plan (1) Acute hypokalemia: Status: Acute Category: Medical Code(s): E87.6 - Hypokalemia (2) Hypomagnesemia: Status: Acute Category: Medical Code(s): E83.42 - Hypomagnesemia (3) Compression fracture of L2: Status: Acute Qualifiers: Encounter type: initial encounter Qualified Code(s): S32.020A - Wedge compression fracture of second lumbar vertebra, initial encounter for closed fracture Category: Medical Code(s): S32.020A - Wedge compression fracture of second lumbar vertebra, initial encounter for closed fracture (4) Crohn disease: Status: Chronic Category: Medical Code(s): K50.90 - Crohn's disease, unspecified, without complications (5) Muscle spasm: Status: Acute Category: Medical Code(s): M62.838 - Other muscle spasm (6) HTN (hypertension): Status: Chronic Category: Medical Code(s): I10 - Essential (primary) hypertension Plan 84-year-old female with history of Crohn's who presents with back pain. Found to have low potassium on workup in the ER a new finding of L2 compression fracture. Nontraumatic in nature. Discussed case with ER physician, request admission for correction of electrolyte disturbances and evaluation by therapy along with treatment of back pain. I decided to admit for further care. Centimeters. Problems addressed as follows: Hypokalemia Hypomagnesemia Labs on admission with potassium 2.8, magnesium 1.5. Kidney function at baseline with BUN 22, creatinine 1.4. Replacing 2 g magnesium IV x 1. 3 runs of IV potassium ordered. Repeat BMP ordered for this evening at 8 PM. Repeat CBC, CMP, magnesium ordered for the morning. Continue replacement after initial dosing per electrolyte protocol L2 compression fracture CT abdomen pelvis per my review with nontraumatic L2 compression fracture identified. Likely the source of her back pain. Therapy to evaluate the morning. Initiate tizanidine 2 mg as needed 3 times a day. Toradol 15 mg IV every 6 hours as needed, Tylenol 650 mg as needed every 6 hours, and morphine 2 mg IV every 4 hours for severe breakthrough pain. Monitor for toxicity. -Additional finding on CT shows questionable lingular opacification. Patient denies any cough or shortness of breath. White count normal at 6.4. No concern at this time for infection. Will hold on treatment Chronic conditions, stable. Continue meds as follows: -Hypertension: Transition to lisinopril 20 mg daily and continue amlodipine 10 mg daily -Crohn's: Continue azathioprine 50 mg daily. No concern for flare at this time -Anxiety: Alprazolam 0.5 mg daily as needed Full code Regular diet Lovenox 40 mg subcu daily
--- NOTE | 2025-03-05 20:17 | PC.NURSE ---
Unable to complete admission/Med rec at this time due to pt AMS. Pt is not able to make sound decisions at this time and (person to notify) is not available.
[2025-03-05 20:52] LABS: Chloride 111 mmol/L (98-107); Sodium 140 mmol/L (136-145)
[2025-03-05 20:53] LABS: Potassium 3.1 mmoL/L (3.5-5.1)
[2025-03-05 20:55] LABS: Blood Urea Nitrogen 19 mg/dl (7-17); Creatinine Clearance Estimated 29 mL/min (50-200); Creatinine,Serum 1.10 mg/dl (0.52-1.04); Estimated Glomerular Filt Rate 47 ml/min (>60); GFR (African American) 57 ML/MIN (>60)
[2025-03-05 20:56] LABS: Anion Gap 13.1 mEq/L (5-15); Calcium 9.0 mg/dl (8.4-10.2); Carbon Dioxide 19 mmol/L (22.0-30.0); Glucose 100 mg/dl (74-100)
[2025-03-05] MEDS: ACETAMINOPHEN 325MG TAB 650 MG PO (21:32)
[2025-03-05] MEDS: MAGNESIUM SULFATE IN WATER 2 GM/50 ML PIGGYBACK IV (23:10)
[2025-03-06] VITALS (8 sets, daily range): BP systolic 112–200; BP diastolic 68–100; PULSE 80–110; RESP 12–18; TEMP 36–36.8; O2SAT 97–99; BMI 20.4
[2025-03-06] MEDS: HYDRALAZINE 20MG/ML VIAL 10 MG IV (02:02)
[2025-03-06] MEDS: ACETAMINOPHEN 325MG TAB 650 MG PO ×3 (04:43→21:57)
[2025-03-06 06:11] LABS: Hematocrit 36.5 % (37.0-47.0); Hemoglobin 12.3 g/dL (12.2-16.2); Immature Granulocytes % 0.3 %; Mean Corpuscular HGB Conc 33.7 g/dL (31.8-35.4); Mean Corpuscular Hemoglobin 31.0 pg (27.0-31.2); Mean Corpuscular Volume 91.9 fl (81-99); Nucleated Red Blood Cells % 0 %; Platelet Count 301 K/mm3 (142-424); Red Blood Count 3.97 M/mm3 (4.20-5.40); Red Cell Distribution Width-SD 48.9 fL; White Blood Count 6.5 K/mm3 (4.8-10.8)
[2025-03-06 06:22] LABS: Albumin Level 3.6 g/dl (3.5-5.0); Chloride 110 mmol/L (98-107)
[2025-03-06 06:23] LABS: Sodium 140 mmol/L (136-145)
[2025-03-06 06:25] LABS: Alanine Aminotransferase 14 U/L (12-78); Albumin/Globulin Ratio 1.4 (1.1-1.8); Alkaline Phosphatase 85 U/L (38-126); Anion Gap 11.9 mEq/L (5-15); Aspartate Amino Transferase 29 U/L (14-36); Bilirubin,Total 0.4 mg/dl (0.2-1.3); Blood Urea Nitrogen 16 mg/dl (7-17); Carbon Dioxide 21 mmol/L (22.0-30.0); Creatinine Clearance Estimated 30 mL/min (50-200); Creatinine,Serum 1.10 mg/dl (0.52-1.04); Estimated Glomerular Filt Rate 47 ml/min (>60); GFR (African American) 57 ML/MIN (>60); Globulin 2.5 g/dL (1.3-3.2); Total Protein,Serum 6.1 g/dl (6.3-8.2)
[2025-03-06 06:26] LABS: Calcium 8.9 mg/dl (8.4-10.2); Glucose 116 mg/dl (74-100); Magnesium 2.1 mg/dl (1.6-2.3)
[2025-03-06 06:47] LABS: Potassium 2.9 mmoL/L (3.5-5.1)
--- NOTE | 2025-03-06 07:59 | PC.NURSE ---
Pt. admitted overnight for generalized weakness, diarrhea, fatigue, . Pt. having low potassium and low magnesium. Pt. alert and orientated x 4, Pt. however had a few periods of confusion. Pt. on room air. Pt. got 3 bags of Potassium and one bag of Magnesium overnight. Pt. slept off and on overnight. Pt.did c/o GLEZ and some low back pain. Pt. got 2 doses of Tylenol with relief of pain. Personal items and call bruce in reach. Bed in low and locked position. Safety measures in place.
[2025-03-06] MEDS: POTASSIUM CHLORIDE 20MEQ TAB 40 MEQ PO ×3 (09:13→17:13)
[2025-03-06] MEDS: LISINOPRIL 20MG TABLET 20 MG PO (09:14)
[2025-03-06] MEDS: AMLODIPINE 10MG TABLET 10 MG PO (09:14)
[2025-03-06 09:32] LABS: Total Cells Counted 100
[2025-03-06 09:33] LABS: RBC Morphology Normal
--- NOTE | 2025-03-06 11:03 | HMH.PTEV ---
Physical Therapy Evaluation Rehab PT IP Evaluation Start: 03/06/25 03:41 Freq: ONCE Status: Active Protocol: Document 03/06/25 10:52 JHONATAN (Rec: 03/06/25 11:01 JHONATAN [id number]) Subjective/History History History Per H&P: Mrs. Ramos is a pleasant 84-year-old female with history of chron's disease and hypertension. Presented to the ER via EMS due to worsening low back pain. Presented a few days ago and was discharged home after treatment of her low potassium. Unfortunately her potassium is low again today on arrival. States her pain is acceptable when she is laying flat or up moving but is severe at 7 out of 10 when she is trying to get up or moving from a laying or seated position. It is intermittent and sharp and in her lower back. Reports a decrease in appetite to a bit. Denies nausea or vomiting. Has daily loose stools secondary to her Crohn's. No worse than normal. She has had a hard time making it to the bathroom however due to the pain and has had accidents on herself. Potassium on admission of 2.8, magnesium 1.5. Kidney function more or less at baseline BUN 22, creatinine 1.5. White count normal at 6.4. Imaging of abdomen shows chronic findings of her Crohn's with some mild inflammation. Has some lingular abnormality on her chest imaging however does not have short of breath, cough, oxygen requirement and has a normal white count. Medicine consulted for admission and further management of her hypokalemia and a new finding of an L2 compression fracture on CT of her abdomen and pelvis. Necessitating pain control. was consulted and recommended follow-up as an outpatient. They are supposed to contact patient about her L2 compression fracture and further management. On arrival to the floor, patient is comfortable laying supine. Denies chest pain or shortness of breath. Tolerating IV electrolyte replacement. Pleasant on exam. Denies any blood in her stool or increase stool output. States she takes Imodium most days and it helps with her loose stools. Denies any recent flare hospitalizations for Crohn's. Denies any recent antibiotics. Subjective Subjective Pt reports she has been having difficulty getting OOB d /t back pain. Pt denying back pain at this time. Pt lives with her in a single story home. Pt normally IND with mobility. Pt does not use a RW but has one if needed. Pt reports starting tomorrow she will have her niece stay with her to assist with tasks as needed. [facility] How much help from another person do you currently need... Turning from your A little back to your side while in a flat bed without using bedrails? Moving from lying on A little back to sitting on the side of a flat bed without using bedrails? Moving to and from a A little bed to a chair ( including a wheelchair)? Standing up from a A little chair using your arms? (e.g., wheelchair, bedside chair) Walking in hospital A little room? Climbing 3-5 steps A little with a railing? Mobility Score 18 Mobility Level [place] [id number] Walk 10 steps or more Mobility Calculator Rehab PT IP Eval Objective Appearance Patient Behavior Appropriate,Cooperative Patient Orientation Person,Place Difficulty following none instructions Speech Pattern Clear Ambulation Patient Able to Yes Ambulate Ambulation Observation IP General Gait Decrease Stride Lngth (R),Decrease Stride Lngth (L) Pattern Observation Ambulation Distance 30 (feet) Ambulation Assistive None Device Ambulation Ability Contact Guard/Hand Hold Balance Ability to Arise Able, uses arms to help Sitting Balance Steady, safe Standing Balance Steady, wide stance Dynamic Sitting Good Balance Ability Dynamic Standing Good Balance Ability Transfers Bed Transfer Ability Supervision/Stand by Sit to Stand Bed Supervision/Stand by Transfer Ability Rehab PT IP prob,goals,plan Problems Date of Evaluation: 03/06/25 PT IP Problems Bed Mobility,Transfers,Gait,Balance,Self care,Safety Rehab Potential Rehab Potential Good Plan PT Intervention Plan Bed Mobility,Transfers,Gait,Balance,Self care,Safety, Therapeutic Exercise Other Intervention 1-2 times Plan PT Plan Frequency Daily Duration LOS Discharge Goals Bed Transfer Ability Independent Sit to Stand Chair Independent Transfer Ability Discharge Plan PT Discharge Plan Pt presents below baseline in mobility and gait. Pt able to demo bed mobility and functional household ambulation with VCs for sequencing and technique. Pt required increased time to perform all mobility tasks d /t fear of LBP. Pt without c/o back pain throughout mobility. At this time, pt most appropriate to d/c home with 24/7 assistance/supervision for mobility tasks ( pt reports her niece is coming down to stay tomorrow). If pt does not have 24/7 assistance, pt would benefit from inpatient rehab. PT recommending PT services to address strength and mobility. PT also recommending pt use RW upon d/c to improve safety with ambulation. Pt would benefit from acute care OT while at [facility] to address deficits. Eval Complexity Eval Charge Codes 22074 - Moderate Complexity PHYSICIAN CERTIFICATION: I certify the specified therapy services for Alejandra Ramos are required, authorized, and reviewed every 30 days.
--- NOTE | 2025-03-06 11:39 | HMH.PHAINT1 ---
Pharmacy Intervention Comments: MED LIST COMPARED TO FILL HX AND MD OFFICE LIST.
--- NOTE | 2025-03-06 15:03 | PC.NURSE ---
Pt. aox3 with confusion at times, up with assistance times one, on ra, given potassium x3 for low level, brief in place for incontinence, assist with turns every two hours, bed alarm active, 20g l ac and 20g r ac both sl, pt and ot to see patient.
--- NOTE | 2025-03-06 17:08 | EXP.PN ---
Subjective *Date: 03/06/25 *Time: 17:08 Interval history: seen at bedside, no fevers overnight, denied CP, SOB, no complains today Exam Data for Last 24 hours Vital signs and Labs for Last 24 Hours: Temp Pulse Resp BP Pulse Ox O2 Del Method 98.2 F 102 H 16 155/83 H 97 Room Air 03/06/25 16:00 03/06/25 16:00 03/06/25 16:00 03/06/25 16:00 03/06/25 16:00 03/06/25 16:54 Laboratory Results - last 24 hr 03/05/25 15:30: Total Counted 100, Neutrophils % (Manual) 95 H, Lymphocytes % (Manual) 4 L, Basophils % (Manual) 1.0, Platelet Estimate Normal, Elliptocytes 1+ 03/05/25 20:30: Sodium 140, Potassium 3.1 L, Chloride 111 H, Carbon Dioxide 19 L, Anion Gap 13.1, BUN 19 H, Creatinine 1.10 H D, Estimated Creat Clear 29, Estimated GFR 47 L, Est GFR ( Amer) 57 L D, Glucose 100, Calcium 9.0 03/06/25 05:30: WBC 6.5, RBC 3.97 L, Hgb 12.3, Hct 36.5 L, MCV 91.9, MCH 31.0, MCHC 33.7, RDW 14.6, Plt Count 301, MPV 9.7, Neut % (Auto) 80.0, Lymph % (Auto) 8.2 L, [place] % (Auto) 7.8, Eos % (Auto) 2.6, Baso % (Auto) 1.1, Neut # (Auto) 5.2, Lymph # (Auto) 0.5 L, [place] # (Auto) 0.5, Eos # (Auto) 0.2, Baso # (Auto) 0.1, Total Counted 100, Neutrophils % (Manual) 82 H, Lymphocytes % (Manual) 8 L, Monocytes % (Manual) 7, Eosinophils % (Manual) 1, Basophils % (Manual) 2.0 H, Platelet Estimate Normal, RBC Morphology Normal, Sodium 140, Potassium 2.9 L*, Chloride 110 H, Carbon Dioxide 21 L, Anion Gap 11.9, BUN 16, Creatinine 1.10 H, Estimated Creat Clear 30, Estimated GFR 47 L, Est GFR ( Amer) 57 L, Glucose 116 H, Calcium 8.9, Magnesium 2.1 D, Total Bilirubin 0.4, AST 29, ALT 14 D, Alkaline Phosphatase 85, Total Protein 6.1 L, Albumin 3.6, Globulin 2.5, Albumin/Globulin Ratio 1.4 I & O for Last 24 hours: Intake & Output 03/03/25 03/04/25 03/05/25 03/06/25 23:59 23:59 23:59 23:59 Intake Total 700 / 925 615 / 615 Output Total 0 / 0 0 / 0 Balance 700 / 925 615 / 615 Weight 113.9 kg 52.345 kg Constitutional Constitutional: no acute distress *Routine HEENT Exam Head: Present normocephalic Eye: Present EOMI and PERRL ENT: Present mucous membranes moist *Routine Neck Exam Neck: Present supple; Absent lymphadenopathy *Routine Respiratory Exam Respiratory: Present CTA bilaterally *Routine Cardiovascular Exam Cardiovascular: Present RRR *Routine Abdominal Exam Abdominal: Present soft and normoactive bowel sounds; Absent tenderness *Routine Extremities Exam Extremities: Absent cyanosis, clubbing or edema *Routine Skin Exam Skin: Present warm; Absent rash *Routine Neurological Exam Neurological: Present alert and oriented X3 Assessment and Plan *Assessment and plan (1) Acute hypokalemia: Status: Acute Category: Medical Code(s): E87.6 - Hypokalemia (2) Hypomagnesemia: Status: Acute Category: Medical Code(s): E83.42 - Hypomagnesemia (3) Compression fracture of L2: Status: Acute Qualifiers: Encounter type: initial encounter Qualified Code(s): S32.020A - Wedge compression fracture of second lumbar vertebra, initial encounter for closed fracture Category: Medical Code(s): S32.020A - Wedge compression fracture of second lumbar vertebra, initial encounter for closed fracture (4) Crohn disease: Status: Chronic Category: Medical Code(s): K50.90 - Crohn's disease, unspecified, without complications (5) Muscle spasm: Status: Acute Category: Medical Code(s): M62.838 - Other muscle spasm (6) HTN (hypertension): Status: Chronic Category: Medical Code(s): I10 - Essential (primary) hypertension Plan 84-year-old female with history of Crohn's who presents with back pain. Found to have low potassium on workup in the ER a new finding of L2 compression fracture. Nontraumatic in nature. Hypokalemia Hypomagnesemia monitor and replace L2 compression fracture CT abdomen pelvis per my review with nontraumatic L2 compression fracture identified. Likely the source of her back pain. Therapy to evaluate the morning. Initiate tizanidine 2 mg as needed 3 times a day. -Additional finding on CT shows questionable lingular opacification. Patient denies any cough or shortness of breath. No concern at this time for infection. Will hold on treatment Chronic conditions, stable. Continue meds as follows: -Hypertension: Transition to lisinopril 20 mg daily and continue amlodipine 10 mg daily -Crohn's: Continue azathioprine 50 mg daily. No concern for flare at this time -Anxiety: Alprazolam 0.5 mg daily as needed Full code Regular diet Lovenox 40 mg subcu daily await PT/OT jonals and patient mentions her family is not home to recieve her, likely dc tomorrow
[2025-03-07] VITALS: BP 160/86; PULSE 90; PULSE 98; RESP 16; TEMP 36.8; O2SAT 97
[2025-03-07 04:00] VITALS: BP 175/85; PULSE 90; PULSE 96; RESP 16; TEMP 36.6; O2SAT 96; BMI 20.5
--- NOTE | 2025-03-07 04:39 | ECG_ITS ---
APPROVED REPORT Exam: Resting ECG HR:79 bpm ECG Measurements Heart Rate 79 AXES FL 148 P 44 QRSd 91 QRS -9 QT 353 T 30 QTc 388 Conclusion SINUS RHYTHM MODERATE VOLTAGE CRITERIA FOR LVH, CONSIDER NORMAL VARIANT [MEETS CRITERIA IN ONE OF: R(aVL), S(V1), R(V5), R(V5/V6)+S(V1)] POSSIBLE ANTERIOR MYOCARDIAL INFARCTION , PROBABLY OLD [30 ms Q WAVE IN V3/V4, OR R < 0.2 mV IN V4] INFERIOR MYOCARDIAL INFARCTION , PROBABLY OLD [40+ ms Q WAVE AND/OR ST/T ABNORMALITY IN II/aVF] ABNORMAL ECG UNCONFIRMED REPORT Electronically signed by : Rordick Mars MD 03/08/2025 08:28:13
[2025-03-07 06:35] LABS: Chloride 117 mmol/L (98-107); Potassium 4.4 mmoL/L (3.5-5.1); Sodium 142 mmol/L (136-145)
[2025-03-07 06:38] LABS: Anion Gap 12.4 mEq/L (5-15); Blood Urea Nitrogen 16 mg/dl (7-17); Calcium 9.3 mg/dl (8.4-10.2); Carbon Dioxide 17 mmol/L (22.0-30.0); Creatinine Clearance Estimated 33 mL/min (50-200); Creatinine,Serum 1.00 mg/dl (0.52-1.04); Estimated Glomerular Filt Rate 53 ml/min (>60); GFR (African American) 64 ML/MIN (>60); Glucose 125 mg/dl (74-100); Phosphorous 2.9 mg/dl (2.5-4.5)
[2025-03-07 06:39] LABS: Magnesium 1.9 mg/dl (1.6-2.3)
--- NOTE | 2025-03-07 07:30 | PC.NURSE ---
Pt. is alert and orientated x 4. Pt. also has brief periods of confusion. Pt. has hx. of Crohn's disease and has had several loose liquid stools. pt. states that she is feeling better than when she came into the hospital. Also states that she is feeling stronger. Pt. abler to grab rhe side rails of bed to help turn self for changing brief.. Pt. slept well this shift. Pt. medicated once for low back pain and headache. Medicated per SEP. Personal items and call bruce in reach. Bed in low and locked position. safety measures in place.
[2025-03-07 07:32] VITALS: BP 145/91; PULSE 107; RESP 17; TEMP 36.9; O2SAT 97
[2025-03-07 08:00] VITALS: PULSE 117
[2025-03-07] MEDS: LISINOPRIL 20MG TABLET 20 MG PO (08:20)
[2025-03-07] MEDS: AMLODIPINE 10MG TABLET 10 MG PO (08:20)
[2025-03-07] MEDS: ACETAMINOPHEN 325MG TAB 650 MG PO (11:59)
[2025-03-07 12:00] VITALS: BP 152/75; PULSE 117; RESP 18; TEMP 36.7; O2SAT 97
--- NOTE | 2025-03-07 12:47 | EXP.DC.SUM ---
General Admission date:: 03/05/25 Discharge date: 03/07/25 HPI HPI HPI: Mrs. Ramos is a pleasant 84-year-old female with history of chron's disease and hypertension. Presented to the ER via EMS due to worsening low back pain. Presented a few days ago and was discharged home after treatment of her low potassium. Unfortunately her potassium is low again today on arrival. States her pain is acceptable when she is laying flat or up moving but is severe at 7 out of 10 when she is trying to get up or moving from a laying or seated position. It is intermittent and sharp and in her lower back. Reports a decrease in appetite to a bit. Denies nausea or vomiting. Has daily loose stools secondary to her Crohn's. No worse than normal. She has had a hard time making it to the bathroom however due to the pain and has had accidents on herself. Potassium on admission of 2.8, magnesium 1.5. Kidney function more or less at baseline BUN 22, creatinine 1.5. White count normal at 6.4. Imaging of abdomen shows chronic findings of her Crohn's with some mild inflammation. Has some lingular abnormality on her chest imaging however does not have short of breath, cough, oxygen requirement and has a normal white count. Medicine consulted for admission and further management of her hypokalemia and a new finding of an L2 compression fracture on CT of her abdomen and pelvis. Necessitating pain control. was consulted and recommended follow-up as an outpatient. They are supposed to contact patient about her L2 compression fracture and further management. On arrival to the floor, patient is comfortable laying supine. Denies chest pain or shortness of breath. Tolerating IV electrolyte replacement. Pleasant on exam. Denies any blood in her stool or increase stool output. States she takes Imodium most days and it helps with her loose stools. Denies any recent flare hospitalizations for Crohn's. Denies any recent antibiotics. Hospital Course Hospital Course Hospital Course: 84-year-old female with history of Crohn's who presents with back pain. Found to have low potassium on workup in the ER a new finding of L2 compression fracture. Nontraumatic in nature. Hypokalemia - resolved Hypomagnesemia - resolved L2 compression fracture CT abdomen pelvis per my review with nontraumatic L2 compression fracture identified. evaluated by PT, OT was recommended home with family assist patient stable for dc and wishes to be dischaarged Exam Data for Last 24 hours Vital signs and Labs for Last 24 Hours: Temp Pulse Resp BP Pulse Ox O2 Del Method 98.1 F 117 H 18 152/75 H 97 Room Air 03/07/25 12:00 03/07/25 12:00 03/07/25 12:00 03/07/25 12:00 03/07/25 12:00 03/07/25 12:00 Laboratory Results - last 24 hr 03/07/25 05:30: Sodium 142, Potassium 4.4 D, Chloride 117 H, Carbon Dioxide 17 L, Anion Gap 12.4, BUN 16, Creatinine 1.00, Estimated Creat Clear 33, Estimated GFR 53 L, Est GFR ( Amer) 64, Glucose 125 H, Calcium 9.3, Phosphorus 2.9, Magnesium 1.9 I & O for Last 24 hours: Intake & Output 03/04/25 03/05/25 03/06/25 03/07/25 23:59 23:59 23:59 23:59 Intake Total 700 / 925 1235 / 1535 690 / 690 Output Total 0 / 0 0 / 0 0 / 0 Balance 700 / 925 1235 / 1535 690 / 690 Weight 113.9 kg 52.345 kg 52.645 kg Constitutional Constitutional: no acute distress *Routine HEENT Exam Head: Present normocephalic Eye: Present EOMI and PERRL ENT: Present mucous membranes moist *Routine Neck Exam Neck: Present supple; Absent lymphadenopathy *Routine Respiratory Exam Respiratory: Present CTA bilaterally *Routine Cardiovascular Exam Cardiovascular: Present RRR *Routine Abdominal Exam Abdominal: Present soft and normoactive bowel sounds; Absent tenderness *Routine Extremities Exam Extremities: Absent cyanosis, clubbing or edema *Routine Skin Exam Skin: Present warm; Absent rash *Routine Neurological Exam Neurological: Present alert and oriented X3 Results Data Completed and Pending Labs on day of discharge: Labs from last 24 hours 03/07/25 05:30 Sodium 142 Potassium 4.4 D Chloride 117 H Carbon Dioxide 17 L Anion Gap 12.4 BUN 16 Creatinine 1.00 Estimated Creat Clear 33 Estimated GFR 53 L Est GFR ( Amer) 64 Glucose 125 H Calcium 9.3 Phosphorus 2.9 Magnesium 1.9 DS: Diagnosis Discharge Diagnosis (1) Acute hypokalemia: Status: Acute Code(s): E87.6 - Hypokalemia (2) Hypomagnesemia: Status: Acute Code(s): E83.42 - Hypomagnesemia (3) Compression fracture of L2: Status: Acute Code(s): S32.020A - Wedge compression fracture of second lumbar vertebra, initial encounter for closed fracture Qualifiers: Encounter type: initial encounter Qualified Code(s): S32.020A - Wedge compression fracture of second lumbar vertebra, initial encounter for closed fracture (4) Crohn disease: Status: Chronic Code(s): K50.90 - Crohn's disease, unspecified, without complications (5) Muscle spasm: Status: Acute Code(s): M62.838 - Other muscle spasm (6) HTN (hypertension): Status: Chronic Code(s): I10 - Essential (primary) hypertension Meds Home Medications and Allergies Home Medications ?Medication ?Instructions ?Recorded ?Confirmed ?Type azathioprine 50 mg tablet 50 mg PO DAILY Cronhs 12/28/17 03/06/25 History fenofibrate nanocrystallized 48 mg 1 tab PO DAILY Cholesterol 12/28/17 03/06/25 History tablet methocarbamol 750 mg tablet 750 mg PO Q8H #90 tabs 03/01/25 03/06/25 Rx alprazolam 0.5 mg tablet 0.5 mg PO DAILYP PRN Anxiety 03/06/25 03/06/25 History amlodipine 10 mg tablet 10 mg PO DAILY 03/06/25 03/06/25 History benazepril 20 mg tablet 20 mg PO DAILY 03/06/25 03/06/25 History potassium chloride 10 mEq 10 meq PO BID 03/06/25 03/06/25 History capsule,extended release New Prescriptions to Start Prescriptions: Allergies Allergy/AdvReac Type Severity Reaction Status Date / Time erythromycin base Allergy Fever Verified 02/15/25 11:43 Penicillins Allergy Rash Verified 02/15/25 11:43 streptomycin Allergy Fever Verified 02/15/25 11:43 tetracycline Allergy Rash Verified 02/15/25 11:43 Discharge Plan Disposition Patient Disposition: Home, Self-Care Condition: Fair Follow up Plan Follow up with: Provider,Referral, MD [Primary Care Provider, Medical] - Enter time for follow up Referral Note: follow up with your PCP Prescriptions/Medication Reconciliation: Continued azathioprine 50 tablet 50 mg PO DAILY fenofibrate nanocrystallized 48 tablet 1 tab PO DAILY methocarbamol 750 mg tablet 750 mg PO Q8H Qty: 90 0RF potassium chloride 10 mEq capsule, extended release 10 meq PO BID Patient Comments: TAKE 1 CAPSULE TWICE DAILY alprazolam 0.5 mg tablet 0.5 mg PO DAILYP PRN (Reason: Anxiety) Patient Comments: TAKE 1 TABLET ONCE DAILY ASNEEDED amlodipine 10 mg tablet 10 mg PO DAILY Patient Comments: TAKE 1 TABLET ONCE DAILY benazepril 20 mg tablet 20 mg PO DAILY Patient Comments: TAKE 1 TABLET ONCE DAILY Problem Reconciliation Problems Reviewed?: Yes Patient Discharge Instructions ACTIVITY: Continue current activity DIET: continue same diet Patient Instructions: DI for Hypokalemia, DI for Hypomagnesemia Print Language: Colombian Providers Primary Care Provider: Provider,Referral Admit Provider: Norman Humphreys Attending Provider: Norman Humphreys
[2025-03-07 14:00] VITALS: PULSE 127
--- NOTE | 2025-03-08 10:13 | CARE MANAGER ---
Patient would benefit with a walker for safe ambulation, as a cane would not provide enough support.
--- NOTE | 2025-03-08 11:01 | SW/DCPLANNER ---
Spoke with patient's on the phone. Patient's stated that his is doing okay. Patient's stated that she is aware of her upcoming appointments. Patient's stated that he was able to get her new medicine picked up. I asked patient's if patient would be interested in home health services and he said that she didnt want them and asked if i would call back to speak to her about it. I told patient's that i would call back. I called back 2x and left a message with name and call back number. Patient's stated that they have no concerns or questions at this time. Samra Flores
[2025-03-10 12:55] LABS: Prealbumin 24 mg/dL (9-32)
== END 2025-03-07 15:13 | disposition home or self-care (01) ==
LOC: ER 15:04 → 2ND 18:46
PROVIDERS: Nurse Practitioner Acute Care; Admitting Provider Internal Medicine Adolescent Medicine; Emergency Provider Student in an Organized Health Care Education/Training Program; Visit Provider Internal Medicine Adolescent Medicine
DX: E87.6 Hypokalemia (principal); S32.020A Wedge compression fracture of second lumbar vertebra, initial encounter for closed fracture; E83.42 Hypomagnesemia; K50.90 Crohn's disease, unspecified, without complications; F41.9 Anxiety disorder, unspecified; I10 Essential (primary) hypertension; K29.90 Gastroduodenitis, unspecified, without bleeding; Z88.0 Allergy status to penicillin; Z88.1 Allergy status to other antibiotic agents; Z90.49 Acquired absence of other specified parts of digestive tract; Z79.899 Other long term (current) drug therapy
CPT/HCPCS: 36415; 71045; 72131; 74177; 80048; 80053; 82550; 83690; 83735; 84100; 84134; 85007; 85025; 85027; 93005; 96361; 96365; 96366; 96367; 96375; 97162; 99284; G0378; J0360; J1650; J3475; J3480; J7120; Q9967

== ENCOUNTER 2025-03-13 13:01 | Emergency (ER) | payer MEDICARE, SELFPAY ==
--- OUTSIDE RECORDS SUMMARY | 2024-12-29 09:50 | XMS_ITS ---
Author Organization [facility] Address [address] [place] [phone] Care Team Providers Care Photography And Prints Curator Name Role Phone Unique Pendleton Primary Care Provider Allergies Allergen (clinical drug ingredient) Drug/Non Drug Allergy documented on EMR Reaction Allergy Type Onset Date Status RU TUSS DE (uncoded) Unknown Allergy Active sulfamethoxazole / trimethoprim Bactrim DS itching Drug Allergy Active nebivolol Bystolic weakness Drug Allergy Active Cefuroxime Axetil diarrhea Drug Allergy Active betamethasone [...] Interpretation:464 Performing Lab: Notes/Report: Test performed by [facility] [address] , [address], [place] [address] Sawyer Hyman MD, Presser All Around CLIA: [id number] Vitamin B12 176 741-2742 pg/mL P-Comprehensive Metabolic Pa lyndsey (CMP) Reviewed date:01/03/2025 10:10:06 PM Interpretation:GFR 39 Performing Lab: Notes/Report: Test performed by [facility] [address] , [address], [place] [address] Sawyer Hyman MD, Press[employer] All Around CLIA: [id number] Sodium 143 135-145 mmol/L Potassium 4.0 3.5-5.3 [...] Interpretation:1.4 Performing Lab: Notes/Report: Test performed by [facility] [address] [place] [address] , [address], [place] [id number] Sawyer Hyman MD, [employer] CLIA: [id number] Magnesium 1.4 1.6-2.4 mg/dL P-TSH Reviewed date:01/03/2025 10:10:06 PM Interpretation:3.24 Performing Lab: Notes/Report: Test performed by [facility] [address] [place] [address] , [address], [place] [address] Sawyer Hyman MD, [employer] Around CLIA: [id number] TSH 3.24 0.43-5.25 mU/L REASON FOR VISIT [...] (R20.2) Active confirmed Problem Iron deficiency anemia (54833973) Iron deficiency anemia (D50.9) Active confirmed Vital Signs Weight 122 lbs 12/29/2024 Blood pressure systolic 164 mm Hg 12/30/19 25 Blood pressure diastolic 68 mm Hg 025 Heart Rate 82 /min 12/29/2024 Height 64 in 12/29/2024 BMI 20.94 kg/m2 12/29/2024 Encounters Encounter Location Date Provider Diagnosis [facility] [address] [place], [place] [phone] 12/29/2024 Unique Pendleton Adult general medica l [...] Up: 6 Months, Reason: Progress Notes * PARVIN MALONEDOB:1940 (84 yo F)Acc No.nb bmDOS:12/29/2024 Annual Wellness Visit Patient: PARVIN CHAIREZ Account Number:nb bm Provider: Unique Pendleton M.D. :1940 A ge:84 Y S ex:Female Date:12/29/2024 Address:[address], [id number] Subjective: * Chief Complaints: * 1 . [...] low magnesium diagnosed by her consultants in [place]. She tried taking a magnesium supplement but [...] * Hospitalization/Major Diagno stic Procedure: H ypertension- [facility] ER 12/28/2017. * Family History: F ather: , diagnosed with Hypertension, Stroke. M other: . C hilen: pt does not have children. 3 sister(s) [...] rohn disease - K50.90 8 . B AR 20.0-20.9, adult - Z68.20 9 . O [...] PM)?464* Value Reference Range V itamin B12 409 183-0208 - pg/mL * Unique Pendleton 01/03/2025 10:09:44 [...] NON-USER, 3017F COLORECTAL CA SCREEN DOC REV, 94496 CBC WITH AUTO DIFF, G8510 NEG SCR [...] * Images: Billing Information: * Visit Code: 53216 Office Visit, Est Pt., Level 3. Modifiers: 25 * Procedure Codes: G0439 ANNUAL WELLNESS VST; PPS SUBSQT VST. G2211 Complex e/m visit add on. 1090F PRES/ABSN URINE INCON ASSESS. 3288F FALL RISK ASSESSMENT DOCD. 1170F FXNL STATUS ASSESSED. 1159F MED LIST DOCD IN RCRD. 1003F LEVEL OF ACTIVITY ASSESS. 1036F TOBACCO NON-USER. 3017F COLORECTAL CA SCREEN DOC REV. 60576 CBC WITH AUTO DIFF. G8510 NEG SCR Depression PT NOT ELIG F/U/PLN DOC. G8420 BMI<30 AND >=22 CALC & DOCU. G8950 PREHTN/HTN BP DOC INDCD F/U DOC. G8753 MOST RECENT SYSTOLIC BP >= 140MM HG. G8754 MOST RECENT DIASTOLIC BP < 90MM HG. * Electronic signature of Unique Pendleton MD on 03/13/2025 at 01:41 PM EDT Sign off status: Pending * Provider: Unique Pendleton M.D. Date: 0 12/29/2024 Generated for Osmar gilbert/Nicolle/Crystalitting on: 0 03/13/2025 01:41 PM EDT History and Physical Notes * HPI (History of Present Illness) Category Sub-Category Detail Notes Category Not es Cardiology Short of Breath She has a hi story of low magnesium diagnosed by her consultants in [place]. She tried taking a magnesium supplement but it caused diarrhea and aggravated her Crohn's disease. She has not had follow-up blood work. Chest Pain Palpitations Leg Edema mild ankle swelling HPI Patient is here today for a [facility] 6 month check up and a Medicare [...]
--- OUTSIDE RECORDS SUMMARY | 2025-01-11 09:20 | XMS_ITS ---
[facility] [address] [facility] 36 [facility] [address] [place] [id number] Care Team Providers Care Photovoltaic Solar Cell Designer Name Role Phone Unique Pendleton Primary Care Provider Daniel Keys [phone] REASON FOR VISIT B 12 INJECTION Encounters Encounter Location Date Provider Diagnosis Rob [address] [facility] [address] [place] [phone] 01/11/2025 Daniel Keys Vitamin B 12 deficie [...] ex:Female Date:01/11/2025 Address[address], [place] Pcp:Unique Pendleton Subjective: * Chief Complaints: * 1 . B 12 INJECTION. * Medical History: Objective: * Vitals: Assessment: * Assessment: 1. V itamin B 12 deficiency - E53.8 (Primary) Plan: * Treatment: * Therapeutic Injections: B-12 : 1 mL (Route: Intramuscular) given by JAMAR Willoughby on left gluteus (Vitamin B 12 deficiency) * Procedure Codes: J 3420 B-12, 85444 ADMINISTRATION OF INJECTION * Images: Billing Information: * Visit Code: * Procedure Codes: J3420 B-12. 39800 ADMINISTRATION OF INJECTION. * Electronic signature of Milena Keys MD on 03/13/2025 at 01:39 PM EDT Sign off status: Pending * Provider: Dominik Keys M.D. Date: 01/11/2025 Generated for Osmar gilbert/Nicolle/Arthur on: 03/13/2025 01:39 PM EDT
--- OUTSIDE RECORDS SUMMARY | 2025-01-19 11:15 | XMS_ITS ---
Author Organization [facility] Address [address] [place] [id number] Care Team Providers Care Rug Frame Mounter Name Role Phone Unique Pendleton Primary Care [...] 90 days Active Vitamin D 50 MCG (1999) 1 tablet Oral ly Once a day; [...] 01/19/2025 Encounters Encounter Location Date Provider Diagnosis [facility] [facility] [address] [id number] 01/19/2025 R Mono Pendleton Acute left ankle talita n M25.572 [...] phone to repo rt test results, Reason: Progress Notes * PARVIN MALONEDOB:1940 (84 yo F)Acc No.nb bmDOS:01/19/2025 Progress Notes Patient: PARVIN CHAIREZ Account Number:nb bm Provider: Unique Pendleton M.D. :1940 A ge:84 Y S ex:Female Date:01/19/2025 Address:[id number] Subjective: * Chief Complaints: * 1 . [...] * Hospitalization/Major Diagno stic Procedure: H ypertension- [facility] ER 12/28/2017. * Family History: F [...] Temp: 98.2, BP: 133/74, HR: 83, Nurse: live, Ht: 64, BMI:21.49. * Examination: G eneral Examination: Extremities: T here is mild to moderate swelling and tenderness over the left distal fibula and lateral malleolus. Range of motion ankle is nearly full with no pain.. Assessment: * Assessment: 1. A cute left ankle pain - M25.572 (Primary) 2 . E czema - L30.9 ? 3 . B [place] 21.0-21.9, adult - Z68.21 Plan: * Treatment: Notes: Recommend compression socks??2.?Eczema? Start Mometasone Furoate Cream, 0.1 %, 1 application, Externally, Once a day, 15 gm.?? * Procedure Codes: G 2211 Complex e/m visit add on, G5520 BMI<30 AND >=22 CALC & DOCU, G7460 BP SCR PRFRM RCMDD DEFIND SCR INTVL, G0951 MOST RECENT SYSTOLIC BP < 140MM HG, G8754 MOST RECENT DIASTOLIC BP < 90MM HG, 1036F TOBACCO NON-USER * Follow Up: v ia phone to report test results * Images: Billing Information: * Visit Code: 77760 Office Visit, Est Pt., Level 3. * [...] 0 01/19/2025 Generated for Osmar gilbert/Nicolle/Crystalitting on: 0 03/13/2025 01:41 PM EDT History and Physical Notes * Examination Category Sub-Category Detail Notes Category Not es General Examination Extremities: There is mil d to moderate swelling and tenderness over the left distal fibula and lateral malleolus. Range of motion ankle is nearly full with no pain.
--- OUTSIDE RECORDS SUMMARY | 2025-01-28 13:45 | XMS_ITS | Encounter Summary ---
Author Organization [facility] Address [address] [place] [address] Care Team Providers Care Conditioning Coach Name Role Phone Sal Mar MD Unavailable [phone] Edson Pendleton MD Primary Care Provider [phone] Reason for Visit * Reason Comments Follow-up Encounter Details Date Type Department Care Team (Late st Contact Info) Description 01/28/2025 1:45 PM EDT Office Visit [facility] at [facility] [address] [place] [address] Sal Mar MD [address] [address] Iron deficiency anemia due to [...] difficulty in coming all the way the [place]. Current Outpatient Medications: benazepril-hydroCHLOROthiazide [...] recommendation of the National Kidney Foundation and [place] [employer] of Nephrology. This calculation has not [...] Joint [address], [address] [place] [address] Pedro Abdul, PA [address] [place] [address] documented as of this encounter [...] documented as of this encounter Care Teams Conditioning Coach Relationship Specialty Start Date End Date Edson Pendleton MD [address] [place] [address] PCP - General 10/21/23 Sal Mar MD [address] [place] [address] Medical Oncologist Hematology and Oncology 10/16/23 documented as of this encounter
--- OUTSIDE RECORDS SUMMARY | 2025-02-04 14:00 | XMS_ITS | Encounter Summary ---
Author Organization [facility] Address [address] [place] [address] Care Team Providers Care Forming Machine Tender Name Role Phone Sal Mar MD Unavailable [phone] Edson Pendleton MD Primary Care Provider [phone] Reason for Visit * Episode Based Medications (Routine) - Authorized Specialty Diagnoses / Procedures Referred By Contac t Referred To Contact Diagnoses Stage 3 chronic kidney disease, unspecified whether stage 3a or 3b CKD (CMS/HCC) Crohn's disease of colon with complication (CMS/HCC) Iron deficiency 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 blood loss Sal Mar MD [address] [place] [phone] Phone: tel: fax: Sal Mar MD [address] [place] [phone] Phone: tel: fax: Referral ID Status Reason Start Date Expiration Date V isits Requested Visits Authorized [id number] Authorized 02/04/2025 08/06/2026 1 2 Encounter Details Date Type Department Care Team (Late st Contact Info) Description 02/04/2025 2:00 PM EDT Infusion [facility] at [facility] [address] [place] [address] Iron deficiency 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 blood loss (Primary Dx); Stage 3 chronic kidney disease, unspecified whether stage 3a or 3b CKD ([facility]/HCC); Crohn's disease of colon with complication ([facility]) Social History Tobacco Use Types Packs/Day Years [...] as of this encounter Plan of Treatment Upcoming Encounters Date Type Department Care Team ([facility] st Contact Info) Description 03/19/2025 8:00 AM EDT Office Visit Medical Office Building Surgery Sp[facility] & [facility] [address] [facility], [address] [place] [address] Pedro Abdul, PA [address] [facility] [place] [address] [place] [address] documented as of this encounter Visit Diagnoses Diagnosis Iron deficiency 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 blood loss- Primary Iron deficiency anemia secondary to blood loss (chronic) Stage 3 chronic kidney disease, unspecified whether stage 3a or 3b CKD (CMS/HCC) Crohn's disease of colon with complication (CMS/HCC) Lumbar pain- Primary Lumbago documented in this encounter Administered Medications Inactive [...] documented as of this encounter Care Teams Forming Machine Tender Relationship Specialty Start Date End Date Edson Pendleton MD [address] [place] [address] PCP - General 10/21/23 Sal Mar MD [address] [place] [address] Medical Oncologist Hematology and Oncology 10/16/23 documented as of this encounter
--- OUTSIDE RECORDS SUMMARY | 2025-02-16 14:00 | XMS_ITS | Encounter Summary ---
Author Organization [facility] Address [address] [place] [address] Care Team Providers Care Athletics Teacher Name Role Phone Sal Mar MD Unavailable [phone] Edson Pendleton MD Primary Care Provider [phone] Reason for Visit * Reason Comments OP Infusion * Episode Based Medications (Routine) - Authorized Specialty Diagnoses / Procedures Referred By Contac t Referred To Contact Diagnoses Stage 3 chronic kidney disease, unspecified whether stage 3a or 3b CKD (CMS/HCC) Crohn's disease of colon with complication (CMS/HCC) Iron deficiency 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 blood loss Sal Mar MD [address] [place] [phone] Phone: tel: fax: Sal Mar MD [address] [place] [phone] Phone: tel: fax: Referral ID Status Reason Start Date Expiration Date V isits Requested Visits Authorized [id number] Authorized 02/04/2025 08/06/2026 1 2 Encounter Details Date Type Department Care Team (Late st Contact Info) Description 02/16/2025 2:00 PM EDT Infusion [facility] at [facility] [address] [place] [address] Iron deficiency anemia due to [...] Upcoming Encounters Date Type Department Care Team ([facility] st Contact Info) Description 03/19/2025 8:00 AM EDT Office Visit Medical Office Building Surgery Spine & Joint [address] [facility], [address] [place] [address] Pedro Abdul PA [address] [facility] [address] [place] [address] documented as of this encounter [...] documented as of this encounter Care Teams Athletics Teacher Relationship Specialty Start Date End Date Edson Pendleton MD [address] [facility] [address] [place] [address] PCP - General 10/21/23 Sal Mar MD [address] [place] [address] Medical Oncologist Hematology and Oncology 10/16/23 documented as of this encounter
--- OUTSIDE RECORDS SUMMARY | 2025-02-25 09:45 | XMS_ITS ---
Author Organization [facility] Address [address] [place] [phone] Care Team Providers Care Cardiovascular Operating Room Nurse Name Role Phone Unique Pendleton Primary Care Provider REASON FOR VISIT back pain Encounters Encounter Location Date Provider Diagnosis [facility] [address] [place] [phone] 02/25/2025 Unique Pendleton Plan Of Treatment No Information Progress Notes * MERNA MALONEOLYDOB:1940 (84 yo F)Acc No.nb bmDOS:02/25/2025 Progress Notes Patient: PARVIN CHAIREZ Account Number:nb bm Provider: Unique Pendleton M.D. :1940 A ge:84 Y S ex:Female Date:02/25/2025 Address[address], [place] Subjective: * Chief Complaints: * 1 . Back pain. * Medical History: Objective: * Vitals: Assessment: Plan: * Treatment: * Images: Billing Information: * Visit Code: * Procedure Codes: * Electronic signature of Unique Pendleton MD on 03/13/2025 at 01:40 PM EDT Sign off status: Pending * Provider: Unique Pendleton M.D. Date: 02/25/2025 Generated for Printi ng/Faxing/eTransmitting on: 03/13/2025 01:40 PM EDT
--- OUTSIDE RECORDS SUMMARY | 2025-03-04 05:45 | XMS_ITS ---
Author [facility] Address [address] [place] [id number] Care Team Providers Care Freight Weigher Name Role Phone Unique Pendleton Primary Care Provider [phone] Allergies Allergen (clinical drug ingredient) Drug/Non Drug [...] dehydration Encounters Encounter Location Date Provider Diagnosis [facility] [address] [facility] [address] [place] [id number] 03/04/2025 Unique Pendleton Plan Of Treatment No Information Progress Notes * PARVIN MALONEDOB:1940 (84 yo F)Acc No.nb bmDOS:03/04/2025 Progress Notes Patient: PARVIN CHAIREZ Account Number:nb bm Provider: Unique Pendleton M.D. :1940 A ge:84 Y S ex:Female Date:03/04/2025 Address[address], [place] Subjective: * Chief Complaints: * 1 . [...] * Hospitalization/Major Diagno stic Procedure: H [facility]pertension- [facility] 12/28/2017. * Family History: [...] EDT Sign off status: Pending * Provider: nUique Pendleton M.D. Date: 03/04/2025 Generated for Osmar gilbert/Nicolle/Crystalitting on: 03/13/2025 01:40 PM EDT
[2025-03-13] VITALS (9 sets, daily range): BP systolic 121–137; BP diastolic 52–78; PULSE 69–98; RESP 15–18; TEMP 36.6; O2SAT 97–100; BMI 18.8
--- OUTSIDE RECORDS SUMMARY | 2025-03-13 13:38 | XMS_ITS | Encounter Summary ---
Author Organization [facility] Address [address] 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 Name Role Phone System, Provider Not In MD Primary Care Provider Unavailable Sal Mar MD Unavailable [phone] Edson Pendleton MD Primary Care Provider [phone] Encounter Details Date Type Department Care Team (Late Contact Info) Description 11/09/2021 Orders Only [facility] [address] [place] [address] Sal Mar MD [address] [phone] Social History Tobacco Use Types Packs/Day Years [...] Encounters Date Type Department Care Team (Late Contact Info) Description 03/19/2025 8:00 AM EDT Office Visit Medical Office Building [facility] [address], [address] [place] [address] Pedro Abdul PA [address] [place] [address] documented as of this encounter Procedures Procedure Name Priority Date/Time Associated Diagnosis Comments CBC WITH AUTO DIFFERENTIAL Routine 11/09/2021 3:53 PM EDT documented in this encounter Results * (ABNORMAL) CBC and Differential (11/09/2021 3:53 PM EDT) External WBC 3.9 3.8 - 10.8 K/uL [facility] External Red Blood Cell (RBC) 3.18(L) 3.80 - 5.20 M/uL [facility] External Hemoglobin 9.5(L) 12.0 - 16.0 G/DL [facility] External Hematocrit 27.0(L) 35.0 - 47.0 % [facility] External MCV 85 80 - 100 fL [facility] External MCH 30 26 - 35 PG [facility] External MCHC 35 32 - 36 G/DL [facility] External RDW 15.0 11.0 - 15.0 % [facility] External Mean Platelet Volume 7.2 6.2 - 10.5 fL [facility] External Platelets 228 130 - 400 K/uL [facility] External Neutrophil# 2.9 1.6 - 8.4 K/uL [facility] External Lymphocyte# 0.6 0.4 - 5.1 K/uL [facility] External Absolute Monocyte (Abs [place]) 0.3 0.0 - 1.2 K/uL [facility] External Eosinophils# 0.1 0.0 - 0.8 K/uL [facility] External Baso# 0.0 0.0 - 0.3 K/uL [facility] External Neutrophils % 73.4 42.0 - 78.0 % [facility] External Lymphocyte % 16.4 11.0 - 47.0 % [facility] External Monocyte % 6.8 0.0 - 11.0 % [facility] External Eosinophil% 2.3 0.0 - 7.0 % [facility] External Basophil % 1.1 0.0 - 3.0 % [facility] External Nucleated RBC%-Auto 0.1 0.0 - 0.9 % [facility] External Nucleated RBC Absolute 0.00 Not Estab. K/uL [facility] 11/09/2021 3:53 PM EDT 11/09/2021 6:01 PM EDT Sal Mar MD LAB BLOOD ORDERABLES Final Res ult [facility] [address] [place] [address], documented in this encounter Visit Diagnoses Not on filedocumented in this encounter Care Teams Trail Construction Worker Relationship Specialty Start Date End Date System, Provider Not In, [address] [place] [address] PCP - General Family Medicine 07/15/21 10/20/23 Edson Pendleton MD [address] [place] [address] [address] [place] [address] PCP - General 10/21/23 Sal Mar MD [address] [place], [place] [id number] Medical Oncologist Hematology and Oncology 10/16/23 documented as of this encounter
--- OUTSIDE RECORDS SUMMARY | 2025-03-13 13:38 | XMS_ITS | Encounter Summary ---
Author Organization [facility] Address [address] [place] [address] Care Team Providers Care Jawbone Breaker Name Role Phone System, Provider Not In MD Primary Care Provider Unavailable Chanel Mar MD Unavailable [phone] Edson Pendleton MD Primary Care Provider [phone] Encounter Details Date Type Department Care Team (Late Contact Info) Description 01/08/2022 Orders Only [facility] [address] [place] [address] Fidel Vasquez MD [address] [place], [place] [id number] Social History Tobacco Use Types Packs/Day Years [...] [facility] [address] [facility], [address] [place] [address] Pedro Abdul PA [address] [place] [address] documented as of this encounter Procedures Procedure Name Priority Date/Time Associated Diagnosis Comments COMPREHENSIVE GI PANEL BY PCR Routine 01/08/2022 12:38 PM EDT documented in this encounter Results * Comprehensive GI Panel by PCR (01/08/2022 12:38 PM EDT) EXTERNAL GI PANEL SEE BELOW LE [facility] External Campylobacter species by PCR Negative Negative [facility] External Clostridioides (Clostridium) Difficile Toxin Negative Negative [facility] External Plesiomonas shigelloides Negative Negative [facility] EXTERNAL SALMONELLA SPP Negative Negative [facility] External Vibrio Negative Negative [facility] External Vibrio cholerae Negative Negative [facility] EXTERNAL YERSINIA SPECIES Negative Negative [facility] External Enteroaggregative E. Coli Negative Negative [facility] External Enteropathogenic E. coli Negative Negative [facility] External Enterotoxigenic E. coli LT/ST Negative Negative [facility] External Ggkpj-Yimxa-Uwzcmmjd g E. coli Negative Negative [facility] External Shigella/Enteroinvas sadiq E. coli Negative Negative [facility] EXTERNAL CRYPTOSPORIDIUM SPECIES Negative Negative [facility] External Cyclospora cayetanensis Negative Negative [facility] External Entamoeba histolytica Negative Negative [facility] External Giardia lamblia Negative Negative [facility] External Adenovirus F 40/41 Negative Negative [facility] External Astrovirus Negative Negative [facility] EXTERNAL NOROVIRUS GI/GII Negative Negative [facility] External Rotavirus Negative Negative [facility] External Sapovirus Negative Negative [facility] Comment: ADDITIONAL INFORMATION This assay is performed using the FDA-cleared myaNUMBERArray GI Panel ([employer] TEST PERFORMED AT: [facility] [address] [place] [id number] CHANEL HARRIS II, MD,PHD 01/08/2022 12:3 8 PM EDT 01/08/2022 12:45 PM EDT us Fidel Vasquez MD LAB MICROBIOLOGY - GENERAL O RDERABLES Final Result [facility] [address] [place] [address], documented in this encounter Visit Diagnoses Not on filedocumented in this encounter Care Teams Jawbone Breaker Relationship Specialty Start Date End Date System, Provider Not In, [address] [place] [address] PCP - General Family Medicine 07/15/21 10/20/23 Edson Pendleton MD [address] [place] [address] PCP - General 10/21/23 Chanel Mar MD [address] [place] [address] Medical Oncologist Hematology and Oncology 10/16/23 documented as of this encounter
--- OUTSIDE RECORDS SUMMARY | 2025-03-13 13:38 | XMS_ITS | Encounter Summary ---
Author Organization [facility] Address [address] [place] [address] Care Team Providers Care Real Estate Development Manager Name Role Phone System, Provider Not In MD Primary Care Provider Unavailable Sal Mar MD Unavailable [phone] Edson Pendleton MD Primary Care Provider [phone] Encounter Details Date Type Department Care Team (Late Contact Info) Description 01/03/2022 Orders Only [facility] @ [facility] [address] [place] [address] Fidel Vasquez MD [address] [place], [place] [id number] Social History Tobacco Use Types Packs/Day Years [...] [facility] [address] [facility], [address] [place] [address] Pedro Abdul PA [address] [place] [address] documented as of this encounter Procedures Procedure Name Priority Date/Time Associated Diagnosis Comments FERRITIN, SERUM Routine 01/03/2022 4:15 PM EDT documented in this encounter Results * (ABNORMAL) Ferritin, Serum (01/03/2022 4:15 PM EDT) External Ferritin 169(H) 13 - 157 ng/mL [facility] 01/03/2022 4:15 PM EDT 01/03/2022 5:13 PM EDT us Fidel Vasquez MD LAB BLOOD ORDERABLES Final R esult [facility] [address] [place] [address], documented in this encounter Visit Diagnoses Not on filedocumented in this encounter Care Teams Real Estate Development Manager Relationship Specialty Start Date End Date System, Provider Not In, [address] [place] [address] PCP - General Family Medicine 07/15/21 10/20/23 Edson Pendleton MD [address] [facility] [address] [place] [address] PCP - General 10/21/23 Sal Mar MD [address] [place] [address] Medical Oncologist Hematology and Oncology 10/16/23 documented as of this encounter
--- OUTSIDE RECORDS SUMMARY | 2025-03-13 13:38 | XMS_ITS | Encounter Summary ---
Author Organization [facility] Address [address] [place] [address] Care Team Providers Care Supervisor Chassis Assembly Name Role Phone System, Provider Not In MD Primary Care Provider Unavailable Sal Mar MD Unavailable [phone] Edson Pendleton MD Primary Care Provider [phone] Encounter Details Date Type Department Care Team (Late Contact Info) Description 08/10/2021 Orders Only [facility] [address] [place] [address] Fidel Vasquez MD [address] [place], [place] [id number] Social History Tobacco Use Types Packs/Day Years [...] [facility] [address] [facility], [address] [place] [address] Pedro Abdul PA [address] [place] [address] documented as of this encounter Procedures Procedure Name Priority Date/Time Associated Diagnosis Comments FERRITIN, SERUM Routine 08/10/2021 2:45 PM EST documented in this encounter Results * (ABNORMAL) Ferritin, Serum (08/10/2021 2:45 PM EST) External Ferritin 6(L) 13 - 157 ng/mL [facility] 08/10/2021 2:45 PM EST 08/10/2021 7:55 PM EST us Fidel Vasquez MD LAB BLOOD ORDERABLES Final R esult [facility] [address] [place] [address], documented in this encounter Visit Diagnoses Not on filedocumented in this encounter Care Teams Supervisor Chassis Assembly Relationship Specialty Start Date End Date System, Provider Not In, [address] [place] [address] PCP - General Family Medicine 07/15/21 10/20/23 Edson Pendleton MD [address] [facility] [address] [place] [address] PCP - General 10/21/23 Sal Mar MD [address] [place] [address] Medical Oncologist Hematology and Oncology 10/16/23 documented as of this encounter
--- OUTSIDE RECORDS SUMMARY | 2025-03-13 13:38 | XMS_ITS | Encounter Summary ---
Author Organization [facility] Address [address] [place] [address] Care Team Providers Care Long Distance Billing Operator Name Role Phone Sal Mar MD Unavailable [phone] Edson Pendleton MD Primary Care Provider [phone] Encounter Details Date Type Department Care Team (Late Contact Info) Description 01/28/2025 Orders Only [facility] at [address] [address] Carrie Chavira, PharmD Inpatient Pharmacy [address] [place] [address] Social History Tobacco Use Types Packs/Day Years [...] [facility] [address] [facility], [address] [place] [address] Pedro Abdul PA [address] [place] [address] documented as of this encounter Visit Diagnoses Not on filedocumented in this encounter Additional Health Concerns Assessment Noted Time A fall risk assessment has been complete d for the patient 11/05/2023 1:17 PM EDT documented as of this encounter Care Teams Long Distance Billing Operator Relationship Specialty Start Date End Date Edson Pendleton MD [address] [place] [address] PCP - General 10/21/23 Sal Mar MD [address] [place] [address] Medical Oncologist Hematology and Oncology 10/16/23 documented as of this encounter
--- OUTSIDE RECORDS SUMMARY | 2025-03-13 13:38 | XMS_ITS | Encounter Summary ---
Author Organization [facility] Address [address] [place] [address] Care Team Providers Care Sales Route Driver Helper Name Role Phone Sal Mra MD Unavailable [phone] Edson Pendleton MD Primary Care Provider [phone] Reason for Visit * Reason Onset Date Comments Requesting Appt 01/21/2025 Encounter Details Date Type Department Care Team (Late st Contact Info) Description 01/21/2025 Telephone [facility] [address] [place] [address] Sal Mar MD [address] [address] Requesting Appt Social History Tobacco [...] Joint [address], [address] [place] [address] Pedro Abdul PA [address] [place] [address] [place] [address] documented as of this encounter Visit Diagnoses Not on filedocumented in this encounter Additional Health Concerns Assessment Noted Time A fall risk assessment has been complete d for the patient 11/05/2023 1:17 PM EDT documented as of this encounter Care Teams Sales Route Driver Helper Relationship Specialty Start Date End Date Edson Pendleton MD [address] [place] [address] PCP - General 10/21/23 Sal Mar MD [address] [place] [address] Medical Oncologist Hematology and Oncology 10/16/23 documented as of this encounter
--- OUTSIDE RECORDS SUMMARY | 2025-03-13 13:38 | XMS_ITS | Encounter Summary ---
Author Organization [facility] Address [address] [place] [address] Care Team Providers Care Accounting Clerk Name Role Phone System, Provider Not In MD Primary Care Provider Unavailable Sal Mar MD Unavailable [phone] Edson Pendleton MD Primary Care Provider [phone] Encounter Details Date Type Department Care Team (Late Contact Info) Description 01/03/2022 Orders Only [facility] @ [facility] [address] [place] [address] Fidel Vasquez MD [address] [place], [place] [id number] Social History Tobacco Use Types Packs/Day Years [...] [facility] [address] [facility], [address] [place] [address] Pedro Abdul PA [address] [place] [address] documented as of this encounter Procedures Procedure Name Priority Date/Time Associated Diagnosis Comments VITAMIN B12, SERUM Routine 01/03/2022 4: 15 PM EDT documented in this encounter Results * (ABNORMAL) Vitamin B12, Serum (01/03/2022 4:15 PM EDT) External Vitamin B12 >2,000(H) 232 - 1,245 pg/mL [facility] 01/03/2022 4:15 PM EDT 01/03/2022 5:14 PM EDT us Fidel Vasquez MD LAB BLOOD ORDERABLES Final R esult [facility] [address] [place] [address], documented in this encounter Visit Diagnoses Not on filedocumented in this encounter Care Teams Accounting Clerk Relationship Specialty Start Date End Date System, Provider Not In, [address] [place] [address] PCP - General Family Medicine 07/15/21 10/20/23 Edson Pendleton MD [facility] [address] [place] [address] PCP - General 10/21/23 Sal Mar MD [facility] [place] [address] Medical Oncologist Hematology and Oncology 10/16/23 documented as of this encounter
--- OUTSIDE RECORDS SUMMARY | 2025-03-13 13:38 | XMS_ITS | Encounter Summary ---
Author Organization [facility] Address [address] [place] [address] Care Team Providers Care Abrasive Grinder Name Role Phone System, Provider Not In MD Primary Care Provider Unavailable Sal Mar MD Unavailable [phone] Edson Pendleton MD Primary Care Provider [phone] Encounter Details Date Type Department Care Team (Late Contact Info) Description 11/09/2021 Orders Only [facility] [address] [place] [address] Sal Mar MD [address] [id number] Social History Tobacco Use Types Packs/Day Years [...] [address] [facility], [address] [place] [address] Pedro Abdul PA [address] [place] [address] documented as of this encounter Procedures Procedure Name Priority Date/Time Associated Diagnosis Comments FERRITIN, SERUM Routine 11/09/2021 3:53 PM EDT documented in this encounter Results * (ABNORMAL) Ferritin, Serum (11/09/2021 3:53 PM EDT) External Ferritin 9(L) 13 - 157 ng/mL [facility] 11/09/2021 3:53 PM EDT 11/09/2021 6:04 PM EDT us Sal Mar MD LAB BLOOD ORDERABLES Final Res ult [facility] [address] [place] [address], documented in this encounter Visit Diagnoses Not on filedocumented in this encounter Care Teams Abrasive Grinder Relationship Specialty Start Date End Date System, Provider Not In, [address] [place] [address] PCP - General Family Medicine 07/15/21 10/20/23 Edson Pendleton MD [address] [place] [address] PCP - General 10/21/23 Sal Mar MD [address] [place] [address] Medical Oncologist Hematology and Oncology 10/16/23 documented as of this encounter
--- OUTSIDE RECORDS SUMMARY | 2025-03-13 13:38 | XMS_ITS | Encounter Summary ---
Author Organization [facility] Address [address] [place] [address] Care Team Providers Care Dispatcher Electric Power Name Role Phone Sal Mar MD Unavailable [phone] Edson Pendleton MD Primary Care Provider [phone] Encounter Details Date Type Department Care Team [...] Joint [address], [address] [place] [address] Pedro Abdul PA [address] [facility] [facility] [address] [place] [address] documented as of this encounter Visit Diagnoses Not on filedocumented in this encounter Additional Health Concerns Assessment Noted Time A fall risk assessment has been complete d for the patient 02/04/2025 2:33 PM EDT documented as of this encounter Care Teams Dispatcher Electric Power Relationship Specialty Start Date End Date Edson Pendleton MD [address] [facility] [address] [facility] [address] [place] [address] PCP - General 10/21/23 Sal Mar MD [address] [place] [address] Medical Oncologist Hematology and Oncology 10/16/23 documented as of this encounter
--- OUTSIDE RECORDS SUMMARY | 2025-03-13 13:38 | XMS_ITS | Encounter Summary ---
Author Organization [facility] Address [address] [place] [address] Care Team Providers Care Cross Tie Turner Name Role Phone Sal Mar MD Unavailable [phone] Edson Pendleton MD Primary Care Provider [phone] Encounter Details Date Type Department Care Team [...] [facility] [address] [facility], [address] [place] [address] Pedro Abdul PA [address] [place] [address] documented as of this encounter Visit Diagnoses Not on filedocumented in this encounter Additional Health Concerns Assessment Noted Time A fall risk assessment has been complete d for the patient 11/05/2023 1:17 PM EDT documented as of this encounter Care Teams Cross Tie Turner Relationship Specialty Start Date End Date Edson Pendleton MD [address] [place] [address] PCP - General 10/21/23 Sal Mar MD [address] [place] [address] Medical Oncologist Hematology and Oncology 10/16/23 documented as of this encounter
--- OUTSIDE RECORDS SUMMARY | 2025-03-13 13:38 | XMS_ITS | Encounter Summary ---
Author Organization [facility] Address [address] [place] [address] Care Team Providers Care Supervisor Alteration Workroom Name Role Phone System, Provider Not In MD Primary Care Provider Unavailable Sal Mar MD Unavailable [phone] Edson Pendleton MD Primary Care Provider [phone] Encounter Details Date Type Department Care Team (Late Contact Info) Description 01/08/2022 Orders Only [facility] [address] [place] [address] Fidel Vasquez MD [address] [place], [place] [id number] Social History Tobacco Use Types Packs/Day Years [...] [facility] [address] [facility], [address] [place] [address] Pedro Abdul PA [address] [place] [address] documented as of this encounter Procedures Procedure Name Priority Date/Time Associated Diagnosis Comments PANCREATIC ELASTASE, FECAL Routine 01/08/2022 12:38 PM EDT documented in this encounter Results * Pancreatic elastase, fecal (01/08/2022 12:38 PM EDT) External Pancreatic Elastase 287 mcg/g [facility] Comment: Adult and Pediatric Reference Ranges for Pancreatic Elastase-1: Normal: >200 mcg/g Moderate Pancreatic Insufficiency: 100-200 mcg/g Severe Pancreatic Insufficiency: <100 mcg/g Elastase-1 (E-1) assay results are expressed in mcg/g, which represent mcg E1/g feces. It is not necessary to interrupt enzyme substitution therapy. TEST PERFORMED AT: [facility] [address] [place] [address] LI CALERO MD,PHD,SEBLE 01/08/2022 12:3 8 PM EDT 01/08/2022 12:45 PM EDT Fidel Vasquez MD LAB BODY FLUIDS AND STOOLS O RDERABLES Final Result [facility] [address] [place] [address], documented in this encounter Visit Diagnoses Not on filedocumented in this encounter Care Teams Supervisor Alteration Workroom Relationship Specialty Start Date End Date System, Provider Not In, [address] [place] [address] PCP - General Family Medicine 07/15/21 10/20/23 Edson Pendleton MD [address] [facility] [address] [place] [address] PCP - General 10/21/23 Sal Mar MD [address] [place] [address] Medical Oncologist Hematology and Oncology 10/16/23 documented as of this encounter
--- OUTSIDE RECORDS SUMMARY | 2025-03-13 13:38 | XMS_ITS | Encounter Summary ---
Author Organization [facility] Address [address] [place] [address] Care Team Providers Care Placement Interviewer Name Role Phone System, Provider Not In MD Primary Care Provider Unavailable Sal Mar MD Unavailable [phone] Edson Pendleton MD Primary Care Provider [phone] Encounter Details Date Type Department Care Team (Late Contact Info) Description 01/03/2022 Orders Only [facility] [address] [place] [address] Fidel Vasquez MD [address] [place], [place] [id number] Social History Tobacco Use Types Packs/Day Years [...] [facility] [address] [facility], [address] [place] [address] Pedro Abdul PA [address] [place] [address] documented as of this encounter Procedures Procedure Name Priority Date/Time Associated Diagnosis Comments CBC WITH AUTO DIFFERENTIAL Routine 01/03/2022 4:15 PM EDT documented in this encounter Results * (ABNORMAL) CBC and Differential (01/03/2022 4:15 PM EDT) External WBC 4.1 3.8 - 10.8 K/uL [facility] External Red Blood Cell (RBC) 3.72(L) 3.80 - 5.20 M/uL [facility] External Hemoglobin 11.6(L) 12.0 - 16.0 G/DL [facility] External Hematocrit 33.4(L) 35.0 - 47.0 % [facility] External MCV 90 80 - 100 fL [facility] External MCH 31 26 - 35 PG [facility] External MCHC 35 32 - 36 G/DL [facility] External RDW 15.9(H) 11.0 - 15.0 % [facility] External Mean Platelet Volume 7.5 6.2 - 10.5 fL [facility] External Platelets 223 130 - 400 K/uL [facility] External Neutrophil# 3.0 1.6 - 8.4 K/uL [facility] External Lymphocyte# 0.7 0.4 - 5.1 K/uL [facility] External Absolute Monocyte (Abs Summers) 0.3 0.0 - 1.2 K/uL [facility] External Eosinophils# 0.1 0.0 - 0.8 K/uL [facility] External Baso# 0.0 0.0 - 0.3 K/uL [facility] External Neutrophils % 71.7 42.0 - 78.0 % [facility] External Lymphocyte % 16.1 11.0 - 47.0 % [facility] External Monocyte % 7.9 0.0 - 11.0 % [facility] External Eosinophil% 3.3 0.0 - 7.0 % [facility] External Basophil % 1.0 0.0 - 3.0 % [facility] External Nucleated RBC%-Auto 0.1 0.0 - 0.9 % [facility] External Nucleated RBC Absolute 0.00 Not Estab. K/uL [facility] 01/03/2022 4:15 PM EDT 01/03/2022 5:14 PM EDT us Fidel Vasquez MD LAB BLOOD ORDERABLES Final R esult [facility] [address] [place] [address], documented in this encounter Visit Diagnoses Not on filedocumented in this encounter Care Teams Placement Interviewer Relationship Specialty Start Date End Date System, Provider Not In, [address] [place] [address] PCP - General Family Medicine 07/15/21 10/20/23 Edson Pendleton MD [address] [place] [address] PCP - General 10/21/23 Sal Mar MD [address] [place], [place] [id number] Medical Oncologist Hematology and Oncology 10/16/23 documented as of this encounter
--- OUTSIDE RECORDS SUMMARY | 2025-03-13 13:38 | XMS_ITS | Encounter Summary ---
Author Organization [facility] Address [address] [place] [address] Care Team Providers Care Infant And Toddler Teacher Name Role Phone System, Provider Not In MD Primary Care Provider Unavailable Sal Mar MD Unavailable [phone] Edson Pendleton MD Primary Care Provider [phone] Encounter Details Date Type Department Care Team (Late Contact Info) Description 08/10/2021 Orders Only [facility] @ [facility] [address] [place] [address] Fidel Vasquez MD [address] [place], [place] [id number] Social History Tobacco Use Types Packs/Day Years [...] [facility] [address] [facility], [address] [place] [address] Pedro Abdul PA [address] [place] [address] documented as of this encounter Procedures Procedure Name Priority Date/Time Associated Diagnosis Comments CBC WITH AUTO DIFFERENTIAL Routine 08/10/2021 2:45 PM EST documented in this encounter Results * (ABNORMAL) CBC and Differential (08/10/2021 2:45 PM EST) External WBC 5.0 3.8 - 10.8 K/uL [facility] External Red Blood Cell (RBC) 3.57(L) 3.80 - 5.20 M/uL [facility] External Hemoglobin 10.7(L) 12.0 - 16.0 G/DL [facility] External Hematocrit 31.8(L) 35.0 - 47.0 % [facility] External MCV 89 80 - 100 fL [facility] External MCH 30 26 - 35 PG [facility] External MCHC 34 32 - 36 G/DL [facility] External RDW 15.3(H) 11.0 - 15.0 % [facility] External Mean Platelet Volume 8.0 6.2 - 10.5 fL [facility] External Platelets 278 130 - 400 K/uL [facility] External Neutrophil# 3.6 1.6 - 8.4 K/uL [facility] External Lymphocyte# 0.8 0.4 - 5.1 K/uL [facility] External Absolute Monocyte (Abs Lam[place]) 0.4 0.0 - 1.2 K/uL [facility] External Eosinophils# 0.1 0.0 - 0.8 K/uL [facility] External Baso# 0.1 0.0 - 0.3 K/uL [facility] External Neutrophils % 72.9 42.0 - 78.0 % [facility] External Lymphocyte % 15.6 11.0 - 47.0 % [facility] External Monocyte % 8.0 0.0 - 11.0 % [facility] External Eosinophil% 2.4 0.0 - 7.0 % [facility] External Basophil % 1.1 0.0 - 3.0 % [facility] External Nucleated RBC%-Auto 0.0 0.0 - 0.9 % [facility] External Nucleated RBC Absolute 0.00 Not Estab. K/uL [facility] 08/10/2021 2:45 PM EST 08/10/2021 7:49 PM EST Fidel Vasquez MD LAB BLOOD ORDERABLES Final R esult [facility] [address] [place] [address], documented in this encounter Visit Diagnoses Not on filedocumented in this encounter Care Teams Infant And Toddler Teacher Relationship Specialty Start Date End Date System, Provider Not In, [address] [place] [address] PCP - General Family Medicine 07/15/21 10/20/23 Edson Pendleton MD [facility] [address] [place] [address] PCP - General 10/21/23 Sal Mar MD [address] [place] [id number] Medical Oncologist Hematology and Oncology 10/16/23 documented as of this encounter
--- OUTSIDE RECORDS SUMMARY | 2025-03-13 13:38 | XMS_ITS | Encounter Summary ---
Author Organization [facility] Address [address] [place] [address] Care Team Providers Care Dewaterer Operator Name Role Phone Sal Mar MD Unavailable [phone] Edson Pendleton MD Primary Care Provider [phone] Encounter Details Date Type Department Care Team [...] [facility], [address] [place] [address] Pedro Abdul PA [address] [facility] [address] [place] [address] documented as of this encounter Visit Diagnoses Not on filedocumented in this encounter Additional Health Concerns Assessment Noted Time A fall risk assessment has been complete d for the patient 02/16/2025 2:28 PM EDT documented as of this encounter Care Teams Dewaterer Operator Relationship Specialty Start Date End Date Edson Pendleton MD [address] [facility] [address] [email or web address] [address] [place] [address] PCP - General 10/21/23 Sal Mar MD [address] [place] [address] Medical Oncologist Hematology and Oncology 10/16/23 documented as of this encounter
--- OUTSIDE RECORDS SUMMARY | 2025-03-13 13:38 | XMS_ITS | Encounter Summary ---
Author Organization [facility] Address [address] [place] [address] Care Team Providers Care Corporate Tax Manager Name Role Phone Sal Mar MD Unavailable [phone] Edson Pendleton MD Primary Care Provider [phone] Encounter Details Date Type Department Care Team [...] [facility] [address] [facility], [address] [place] [address] Pedro Abdul PA [address] [place] [address] documented as of this encounter Visit Diagnoses Not on filedocumented in this encounter Additional Health Concerns Assessment Noted Time A fall risk assessment has been complete d for the patient 11/05/2023 1:17 PM EDT documented as of this encounter Care Teams Corporate Tax Manager Relationship Specialty Start Date End Date Edson Pendleton MD [address] [place] [address] PCP - General 10/21/23 Sal Mar MD [address] [place] [address] Medical Oncologist Hematology and Oncology 10/16/23 documented as of this encounter
--- OUTSIDE RECORDS SUMMARY | 2025-03-13 13:38 | XMS_ITS | Encounter Summary ---
Author Organization [facility] Address [address] [place] [address] Care Team Providers Care Kettle Tender Name Role Phone System, Provider Not In MD Primary Care Provider Unavailable Sal Mar MD Unavailable [phone] Edson Pendleton MD Primary Care Provider [phone] Encounter Details Date Type Department Care Team (Late Contact Info) Description 01/03/2022 Orders Only [facility] @ [facility] [address] [place] [address] Fidel Vasquez MD [address] [place], [place] [id number] Social History Tobacco Use Types Packs/Day Years [...] [facility] [address] [facility], [address] [place] [address] Pedro Abdul PA [address] [place] [address] documented as of this encounter Procedures Procedure Name Priority Date/Time Associated Diagnosis Comments THIOPURINE METABOLITES (SO) Routine 01/03/2022 4:15 PM EDT documented in this encounter Results * (ABNORMAL) Thiopurine Metabolites (01/03/2022 4:15 PM EDT) EXTERNAL 6-TGN 212(L) 235 - 400 pmol/8x10( 8)RBC [facility] Comment: This test was developed and its analytical performance characteristics have been determined by [employer]. It has not been cleared or approved by the FDA. This assay has been validated pursuant to the CLIA regulations and is used for clinical purposes. EXTERNAL 6-MMPN <500 <5700 pmol/8x10( 8)RBC [facility] Comment: These results are useful [...] analytical performance characteristics have been determined by [employer]. It has not been cleared or approved by the FDA. This assay has been validated pursuant to the CLIA regulations and is used for clinical purposes. TEST PERFORMED AT: [facility] [address] [place] [address] MICHAELA FRANCIS MD 01/03/2022 4:15 PM EDT 01/03/2022 5:15 PM EDT Fidel Vasquez MD LAB BLOOD ORDERABLES Final R esult [facility] [address] [place] [address], documented in this encounter Visit Diagnoses Not on filedocumented in this encounter Care Teams Kettle Tender Relationship Specialty Start Date End Date System, Provider Not In, [address] [place] [address] PCP - General Family Medicine 07/15/21 10/20/23 Edson Pendleton MD [address] [place] [address] PCP - General 10/21/23 Sal Mar MD [address] [place], [place] [id number] Medical Oncologist Hematology and Oncology 10/16/23 documented as of this encounter
--- OUTSIDE RECORDS SUMMARY | 2025-03-13 13:38 | XMS_ITS | Encounter Summary ---
Author Organization [facility] Address [address] [place] [address] Care Team Providers Care Capacitor Tester Name Role Phone System, Provider Not In MD Primary Care Provider Unavailable Sal Mar MD Unavailable [phone] Edson Pendleton MD Primary Care Provider [phone] Encounter Details Date Type Department Care Team (Late Contact Info) Description 08/10/2021 Orders Only [facility] @ [facility] [address] [place] [address] Fidel Vasquez MD [address] [place], [place] [id number] Social History Tobacco Use Types Packs/Day Years [...] Building Surgery Spine & Joint [address] [facility], [address] [place] [address] Pedro Abdul PA [address] [place] [address] documented as of this encounter Procedures Procedure Name Priority Date/Time Associated Diagnosis Comments PROTHROMBIN TIME(PT) / INR Routine 08/10/2021 2:45 PM EST documented in this encounter Results * (ABNORMAL) Prothrombin Time/INR (08/10/2021 2:45 PM EST) External Prothrombin Time (PT) 9.6 9.0 - 11.4 SECONDS [facility] External INR - Internormal Ratio 0.9(L) 2.0 - 3.0 [facility] Comment: INR OF 2.0 TO [...] Final R esult [facility] [address] [place] [address], documented in this encounter Visit Diagnoses Not on filedocumented in this encounter Care Teams Capacitor Tester Relationship Specialty Start Date End Date System, Provider Not In, [address] [place] [address] PCP - General Family Medicine 07/15/21 10/20/23 Edson Pendleton MD [address] [place] [address] PCP - General 10/21/23 Sal Mar MD [address] [place] [address] Medical Oncologist Hematology and Oncology 10/16/23 documented as of this encounter
--- OUTSIDE RECORDS SUMMARY | 2025-03-13 13:38 | XMS_ITS | Encounter Summary ---
Author Organization [facility] Address [address] [place] [address] Care Team Providers Care Pulmonology Physician Name Role Phone System, Provider Not In MD Primary Care Provider Unavailable Sal Mar MD Unavailable [phone] Edson Pendleton MD Primary Care Provider [phone] Encounter Details Date Type Department Care Team (Late Contact Info) Description 01/08/2022 Orders Only [facility] @ [facility] [address] [place] [address] Fidel Vasquez MD [address] [place], [place] [id number] Social History Tobacco Use Types Packs/Day Years [...] Building Surgery Sp[facility] Joint [address] [facility], [address] [place] [address] Pedro Abdul PA [address] [place] [address] documented as of this encounter Procedures Procedure Name Priority Date/Time Associated Diagnosis Comments CALPROTECTIN, FECAL BY IMMUNOASSAY (SO) Routine 01/08/2022 12:38 PM EDT documented in this encounter Results * Calprotectin, Fecal by Immunoassay (01/08/2022 12:38 PM EDT) External Calprotectin 30 mcg/g [facility] Comment: Reference Range: <50 Normal 50-120 Borderline >120 Elevated Calprotectin in Crohn's disease and ulcerative colitis can be five to several thousand times above the reference population (50 mcg/g or less). Levels are usually 50 mcg/g or less in healthy patients and with irritable bowel syndrome. Repeat testing in 4-6 weeks is suggested for borderline values. TEST PERFORMED AT: [facility] [facility] [employer] [address] [place] [address] LI CALERO MD,PHD,SEBLE 01/08/2022 12:3 8 PM EDT 01/08/2022 12:45 PM EDT Fidel Vasquez MD LAB BODY FLUIDS AND STOOLS O RDERABLES Final Result [facility] [address] [place] [address], documented in this encounter Visit Diagnoses Not on filedocumented in this encounter Care Teams Pulmonology Physician Relationship Specialty Start Date End Date System, Provider Not In, [address] [place] [address] PCP - General Family Medicine 07/15/21 10/20/23 Edson Pendleton MD [address] [facility] [address] [place] [address] PCP - General 10/21/23 Sal Mar MD [address] [place] [address] Medical Oncologist Hematology and Oncology 10/16/23 documented as of this encounter
--- OUTSIDE RECORDS SUMMARY | 2025-03-13 13:38 | XMS_ITS | Encounter Summary ---
Author Organization [facility] Address [address] [place] [address] Care Team Providers Care Licensed Nuclear Operator Name Role Phone System, Provider Not In MD Primary Care Provider Unavailable Sal Mar MD Unavailable [phone] Edson Pendleton MD Primary Care Provider [phone] Encounter Details Date Type Department Care Team (Late Contact Info) Description 08/10/2021 Orders Only [facility] @ [facility] [address] [place] [address] Fidel Vasquez MD [address] [place], [place] [address] Social History Tobacco Use Types Packs/Day Years [...] Building Surgery [facility] [address] [facility], [address] [place] [address] Pedro Abdul PA [address] [place] [address] documented as of this encounter Procedures Procedure Name Priority Date/Time Associated Diagnosis Comments IRON & TOTAL IRON BINDING CAPACITY, PLASMA (INCLUDES TRANSFERRIN) Routine 08/10/2021 2:45 PM EST documented in this encounter Results * (ABNORMAL) Iron & Total Iron Binding Capacity, Plasma (Includes Transferrin) (08/10/2021 2:45 PM EST) External Iron 65 37 - 145 ug/dL [facility] External Total Iron Binding Capacity 555(H) 250 - 450 ug/dL (calc) [facility] External Unsaturated Iron Binding Capacity 490(H) 112 - 347 ug/dL [facility] External Iron-Saturation% 12(L) 15 - 50 % (calc) [facility] 08/10/2021 2:45 PM EST 08/10/2021 7:55 PM EST us Fidel Vasquez MD LAB BLOOD ORDERABLES Final R esult [facility] [address] [place] [address], documented in this encounter Visit Diagnoses Not on filedocumented in this encounter Care Teams Licensed Nuclear Operator Relationship Specialty Start Date End Date System, Provider Not In, [address] [place] [address] PCP - General Family Medicine 07/15/21 10/20/23 Edson Pendleton MD [address] [facility] [address] [place] [address] PCP - General 10/21/23 Sal Mar MD [address] [place] [address] Medical Oncologist Hematology and Oncology 10/16/23 documented as of this encounter
--- OUTSIDE RECORDS SUMMARY | 2025-03-13 13:39 | XMS_ITS | Encounter Summary ---
Author Organization [facility] Address [address] [place] [address] Care Team Providers Care Telemarketing Representative Name Role Phone Sal Mar MD Unavailable [phone] Edson Pendleton MD Primary Care Provider [phone] Encounter Details Date Type Department Care Team (Late Contact Info) Description 03/05/2025 Orders Only External Location [address] [place] [address] Provider, External Social History Tobacco Use Types Packs/Day Years [...] Building Surgery Sp[facility] & Joint [address] [facility], [address] [place] [address] Pedro Abdul PA [address] [place] [address] documented as of this encounter Procedures Procedure Name Priority Date/Time Associated Diagnosis Comments CT NEURO OUTSIDE IMAGES 03/05/2025 4:19 PM EDT documented in this encounter Results * CT NEURO OUTSIDE IMAGES (03/05/2025 4:19 PM EDT) Anatomical Region Laterality Modality Computed Tomogra phy 03/05/2025 4:19 PM EDT us External Provider IMG CT PROCEDURES Final Result documented in this encounter Visit Diagnoses Not on filedocumented in this encounter Additional Health Concerns Assessment Noted Time A fall risk assessment has been complete d for the patient 02/16/2025 2:28 PM EDT documented as of this encounter Care Teams Telemarketing Representative Relationship Specialty Start Date End Date Edson Pendleton MD [address] [place] [address] PCP - General 10/21/23 Sal Mar MD [address] [place] [address] Medical Oncologist Hematology and Oncology 10/16/23 documented as of this encounter
--- OUTSIDE RECORDS SUMMARY | 2025-03-13 13:39 | XMS_ITS | Encounter Summary ---
Author Organization [facility] Address [address] [place] [address] Care Team Providers Care Transportation Planner Name Role Phone System, Provider Not In MD Primary Care Provider Unavailable Sal Mar MD Unavailable [phone] Edson Pendleton MD Primary Care Provider [phone] Encounter Details Date Type Department Care Team (Late Contact Info) Description 02/08/2022 Orders Only [facility] [address] [place] [address] Sal Mar MD [address] [id number] Social History Tobacco Use Types Packs/Day Years [...] Spine & Joint [address] [facility], [address] [place] [address] Pedro Abdul PA [address] [facility] [address] [place] [address] documented as of this encounter Procedures Procedure Name Priority Date/Time Associated Diagnosis Comments FERRITIN, SERUM Routine 02/08/2022 2:16 PM EDT documented in this encounter Results * Ferritin, Serum (02/08/2022 2:16 PM EDT) External Ferritin 94 13 - 157 ng/mL [facility] 02/08/2022 2:1 6 PM EDT 02/08/2022 2:34 PM EDT us Sal Mar MD LAB BLOOD ORDERABLES Final Res ult [facility] [address] [place] [address], documented in this encounter Visit Diagnoses Not on filedocumented in this encounter Care Teams Transportation Planner Relationship Specialty Start Date End Date System, Provider Not In, [address] [place] [address] PCP - General Family Medicine 07/15/21 10/20/23 Edson Pendleton MD [address] [facility] [address] [facility] [address] [place] [address] PCP - General 10/21/23 Sal Mar MD [address] [place] [address] Medical Oncologist Hematology and Oncology 10/16/23 documented as of this encounter
--- OUTSIDE RECORDS SUMMARY | 2025-03-13 13:39 | XMS_ITS | Encounter Summary ---
Author Organization [facility] Address [address] [place] [address] Care Team Providers Care Jockey Room Custodian Name Role Phone Sal Mar MD Unavailable [phone] Edson Pendleton MD Primary Care Provider [phone] Encounter Details Date Type Department Care Team (Late Contact Info) Description 03/05/2025 Orders Only External Location [address] [place] [address] Provider, External Social History Tobacco Use Types [...] Surgery Spine & Joint [address] [facility], [address] [place] [address] Pedro Abdul PA [address] [place] [address] documented as of this encounter Procedures Procedure Name Priority Date/Time Associated Diagnosis Comments CT MSK OUTSIDE IMAGES 03/05/2025 4:22 PM EDT documented in this encounter Results * CT MSK OUTSIDE IMAGES (03/05/2025 4:22 PM EDT) Anatomical Region Laterality Modality Computed Tomogra phy 03/05/2025 4:22 PM EDT us External Provider IMG CT PROCEDURES Final Result documented in this encounter Visit Diagnoses Not on filedocumented in this encounter Additional Health Concerns Assessment Noted Time A fall risk assessment has been complete d for the patient 02/16/2025 2:28 PM EDT documented as of this encounter Care Teams Jockey Room Custodian Relationship Specialty Start Date End Date Edson Pendleton MD [address] [place] [address] PCP - General 10/21/23 Sal Mar MD [address] [place] [address] Medical Oncologist Hematology and Oncology 10/16/23 documented as of this encounter
--- OUTSIDE RECORDS SUMMARY | 2025-03-13 13:39 | XMS_ITS | Encounter Summary ---
Author Organization [facility] Address [address] [place] [address] Care Team Providers Care Senior Net Application Developer Name Role Phone System, Provider Not In MD Primary Care Provider Unavailable Sal Mar MD Unavailable [phone] Edson Pendleton MD Primary Care Provider [phone] Encounter Details Date Type Department Care Team (Late Contact Info) Description 11/08/2022 Orders Only [facility] [address] [place] [address] Sal Mar MD [address] [phone] Social History Tobacco Use Types Packs/Day Years [...] Building Surgery Spine & Joint [address] [facility], [address] [place] [address] Pedro Abdul PA [address] [place] [address] documented as of this encounter Procedures Procedure Name Priority Date/Time Associated Diagnosis Comments CBC WITH AUTO DIFFERENTIAL Routine 11/08/2022 12:45 PM EDT documented in this encounter Results * (ABNORMAL) CBC and Differential (11/08/2022 12:45 PM EDT) External WBC 4.3 3.8 - 10.8 K/uL [facility] External Red Blood Cell (RBC) 3.16(L) 3.80 - 5.20 M/uL [facility] External Hemoglobin 9.9(L) 12.0 - 16.0 G/DL [facility] External Hematocrit 29.0(L) 35.0 - 47.0 % [facility] External MCV 92 80 - 100 fL [facility] External MCH 31 26 - 35 PG [facility] External MCHC 34 32 - 36 G/DL [facility] External RDW 14.3 11.0 - 15.0 % [facility] External Mean Platelet Volume 7.2 6.2 - 10.5 fL [facility] External Platelets 206 130 - 400 K/uL [facility] External Neutrophil# 3.2 1.6 - 8.4 K/uL [facility] External Lymphocyte# 0.6 0.4 - 5.1 K/uL [facility] External Absolute Monocyte (Abs [place]) 0.4 0.0 - 1.2 K/uL [facility] External Eosinophils# 0.1 0.0 - 0.8 K/uL [facility] External Baso# 0.1 0.0 - 0.3 K/uL [facility] External Neutrophils % 74.1 42.0 - 78.0 % [facility] External Lymphocyte % 14.0 11.0 - 47.0 % [facility] External Monocyte % 8.2 0.0 - 11.0 % [facility] External Eosinophil% 2.5 0.0 - 7.0 % [facility] External Basophil % 1.2 0.0 - 3.0 % [facility] External Nucleated RBC%-Auto 0.0 0.0 - 0.9 % [facility] External Nucleated RBC Absolute 0.00 Not Estab. K/uL [facility] 11/08/2022 12:4 5 PM EDT 11/08/2022 12:53 PM EDT Sal Mar MD LAB BLOOD ORDERABLES Final Res ult [facility] [address] [place] [address], documented in this encounter Visit Diagnoses Not on filedocumented in this encounter Care Teams Senior Net Application Developer Relationship Specialty Start Date End Date System, Provider Not In, [address] [place] [address] PCP - General Family Medicine 07/15/21 10/20/23 Edson Pendleton MD [address] [place] [address] PCP - General 10/21/23 Sal Mar MD [address] [place] [address] Medical Oncologist Hematology and Oncology 10/16/23 documented as of this encounter
--- OUTSIDE RECORDS SUMMARY | 2025-03-13 13:39 | XMS_ITS | Encounter Summary ---
Author Organization [facility] Address [address] [place] [address] Care Team Providers Care Ship Worker Name Role Phone System, Provider Not In MD Primary Care Provider Unavailable Sal Mar MD Unavailable [phone] Edson Pendleton MD Primary Care Provider [phone] Encounter Details Date Type Department Care Team (Late Contact Info) Description 07/19/2022 Orders Only [facility] @ [facility] [address] [place] [address] Fidel Vasquez MD [address] [place], [place] [id number] Social History Tobacco Use Types Packs/Day Years [...] [facility], [address] [place] [address] Pedro Abdul PA [address] [place] [address] documented as of this encounter Procedures Procedure Name Priority Date/Time Associated Diagnosis Comments FERRITIN, SERUM Routine 07/19/2022 3:24 PM EST documented in this encounter Results * Ferritin, Serum (07/19/2022 3:24 PM EST) External Ferritin 14 13 - 157 ng/mL [facility] 07/19/2022 3:24 PM EST 07/19/2022 3:56 PM EST us Fidel Vasquez MD LAB BLOOD ORDERABLES Final R esult [facility] [address] [place] [address], documented in this encounter Visit Diagnoses Not on filedocumented in this encounter Care Teams Ship Worker Relationship Specialty Start Date End Date System, Provider Not In, [address] [place] [address] PCP - General Family Medicine 07/15/21 10/20/23 Edson Pendleton MD [address] [facility] [address] [place] [address] PCP - General 10/21/23 Sal Mar MD [address] [place] [address] Medical Oncologist Hematology and Oncology 10/16/23 documented as of this encounter
--- OUTSIDE RECORDS SUMMARY | 2025-03-13 13:39 | XMS_ITS | Encounter Summary ---
Author Organization [facility] Address [address] [place] [address] Care Team Providers Care Safety Sealer Name Role Phone System, Provider Not In MD Primary Care Provider Unavailable Sal Mar MD Unavailable [phone] Edson Pendleton MD Primary Care Provider [phone] Encounter Details Date Type Department Care Team (Late Contact Info) Description 02/08/2022 Orders Only [facility] at [facility] [address] [place] [address] Sal Mar MD [address] [phone] Social History Tobacco Use Types Packs/Day Years [...] Joint [address] [facility], [address] [place] [address] Pedro Abdul PA [address] [place] [address] documented as of this encounter Procedures Procedure Name Priority Date/Time Associated Diagnosis Comments CBC WITH AUTO DIFFERENTIAL Routine 02/08/2022 2:16 PM EDT documented in this encounter Results * (ABNORMAL) CBC and Differential (02/08/2022 2:16 PM EDT) External WBC 4.3 3.8 - 10.8 K/uL [facility] External Red Blood Cell (RBC) 3.61(L) 3.80 - 5.20 M/uL [facility] External Hemoglobin 11.5(L) 12.0 - 16.0 G/DL [facility] External Hematocrit 32.7(L) 35.0 - 47.0 % [facility] External MCV 91 80 - 100 fL [facility] External MCH 32 26 - 35 [facility] External MCHC 35 32 - 36 G/DL [facility] External RDW 14.1 11.0 - 15.0 % [facility] External Mean Platelet Volume 7.1 6.2 - 10.5 fL [facility] External Platelets 216 130 - 400 K/uL [facility] External Neutrophil# 3.2 1.6 - 8.4 K/uL [facility] External Lymphocyte# 0.6 0.4 - 5.1 K/uL [facility] External Absolute Monocyte (Abs Sullivan) 0.4 0.0 - 1.2 K/uL [facility] External Eosinophils# 0.1 0.0 - 0.8 K/uL [facility] External Baso# 0.1 0.0 - 0.3 K/uL [facility] External Neutrophils % 74.5 42.0 - 78.0 % [facility] External Lymphocyte % 13.0 11.0 - 47.0 % [facility] External Monocyte % 8.8 0.0 - 11.0 % [facility] External Eosinophil% 2.4 0.0 - 7.0 % [facility] External Basophil % 1.3 0.0 - 3.0 % [facility] External Nucleated RBC%-Auto 0.1 0.0 - 0.9 % [facility] External Nucleated RBC Absolute 0.00 Not Estab. K/uL [facility] 02/08/2022 2:16 PM EDT 02/08/2022 2:22 PM EDT Sal Mar MD LAB BLOOD ORDERABLES Final Res ult [facility] [address] [place] [address], documented in this encounter Visit Diagnoses Not on filedocumented in this encounter Care Teams Safety Sealer Relationship Specialty Start Date End Date System, Provider Not In, [address] [place] [address] PCP - General Family Medicine 07/15/21 10/20/23 Edson Pendleton MD [address] [place] [address] [address] [place] [address] PCP - General 10/21/23 Sal Mar MD [address] [place], [place] [id number] Medical Oncologist Hematology and Oncology 10/16/23 documented as of this encounter
--- OUTSIDE RECORDS SUMMARY | 2025-03-13 13:39 | XMS_ITS | Encounter Summary ---
Author Organization [facility] Address [address] [place] [address] Care Team Providers Care Registry Rn Name Role Phone System, Provider Not In MD Primary Care Provider Unavailable Sal Mar MD Unavailable [phone] Edson Pendleton MD Primary Care Provider [phone] Encounter Details Date Type Department Care Team (Late Contact Info) Description 11/08/2022 Orders Only [facility] at [facility] [address] [place] [address] Sal Mar MD [address] [phone] Social History Tobacco Use Types Packs/Day Years [...] Joint [address] [facility], [address] [place] [address] Pedro Abdul PA [address] [place] [address] documented as of this encounter Procedures Procedure Name Priority Date/Time Associated Diagnosis Comments FERRITIN, SERUM Routine 11/08/2022 12:45 PM EDT documented in this encounter Results * (ABNORMAL) Ferritin, Serum (11/08/2022 12:45 PM EDT) External Ferritin 9(L) 13 - 157 ng/mL [facility] 11/08/2022 12:4 5 PM EDT 11/08/2022 12:54 PM EDT Sal Mar MD LAB BLOOD ORDERABLES Final Res ult [facility] [address] [place] [address], documented in this encounter Visit Diagnoses Not on filedocumented in this encounter Care Teams Registry Rn Relationship Specialty Start Date End Date System, Provider Not In, [address] [place] [address] PCP - General Family Medicine 07/15/21 10/20/23 Edson Pendleton MD [address] [place] [address] PCP - General 10/21/23 Sal Mar MD [address] [place] [address] Medical Oncologist Hematology and Oncology 10/16/23 documented as of this encounter
--- OUTSIDE RECORDS SUMMARY | 2025-03-13 13:39 | XMS_ITS | Encounter Summary ---
Author Organization [facility] Address [address] [place] [address] Care Team Providers Care Senior Applications Developer Name Role Phone System, Provider Not In MD Primary Care Provider Unavailable Sal Mar MD Unavailable [phone] Edson Pendleton MD Primary Care Provider [phone] Encounter Details Date Type Department Care Team (Late Contact Info) Description 02/08/2022 Orders Only [facility] at [facility] [address] [place] [address] Sal Mar MD [address] [phone] Social History Tobacco Use Types Packs/Day Years [...] Spine & Joint [address] [facility], [address] [place] [address] Pedro Abdul PA [address] [facility] [address] [place] [phone] documented as of this encounter Procedures Procedure Name Priority Date/Time Associated Diagnosis Comments IRON & TOTAL IRON BINDING CAPACITY, PLASMA (INCLUDES TRANSFERRIN) Routine 02/08/2022 2:16 PM EDT documented in this encounter Results * Iron & Total Iron Binding Capacity, Plasma (Includes Transferrin) (02/08/2022 2:16 PM EDT) External Iron 116 37 - 145 ug/dL [facility] External Total Iron Binding Capacity 419 250 - 450 ug/dL (calc) [facility] External Unsaturated Iron Binding Capacity 303 112 - 347 ug/dL [facility] External Iron-Saturation% 28 15 - 50 % (calc) [facility] 02/08/2022 2:16 PM EDT 02/08/2022 2:34 PM EDT us Sal Mar MD LAB BLOOD ORDERABLES Final Res ult [facility] [address] [place] [address], documented in this encounter Visit Diagnoses Not on filedocumented in this encounter Care Teams Senior Applications Developer Relationship Specialty Start Date End Date System, Provider Not In, [address] [place] [address] PCP - General Family Medicine 07/15/21 10/20/23 Edson Pendleton MD [address] [place] [address] PCP - General 10/21/23 Sal Mar MD [address] [place] [address] Medical Oncologist Hematology and Oncology 10/16/23 documented as of this encounter
--- OUTSIDE RECORDS SUMMARY | 2025-03-13 13:39 | XMS_ITS | Encounter Summary ---
Author Organization [facility] Address [address] [place] [address] Care Team Providers Care Helpdesk Technician Name Role Phone System, Provider Not In MD Primary Care Provider Unavailable Sal Mar MD Unavailable [phone] Edson Pendleton MD Primary Care Provider [phone] Encounter Details Date Type Department Care Team (Late Contact Info) Description 11/09/2021 Orders Only [facility] [address] [place] [address] Sal Mar MD [address] [phone] Social History Tobacco Use Types Packs/Day Years [...] Building Surgery Spine [facility] [address] [facility], [address] [place] [address] Pedro Abdul PA [address] [place] [address] documented as of this encounter Procedures Procedure Name Priority Date/Time Associated Diagnosis Comments COMPREHENSIVE METABOLIC PANEL, PLASMA Routine 11/09/2021 3:53 PM EDT documented in this encounter Results * (ABNORMAL) Comprehensive Metabolic Panel, Plasma (11/09/2021 3:53 PM EDT) External Glucose 89 74 - 100 mg/dL [facility] External BUN 17 6 - 20 mg/dL [facility] External Creatinine Blood 1.47(H) 0.50 - 0.95 mg/dL [facility] External BUN/Creat Ratio 12 10 - 20 (calc) [facility] External Sodium 141 136 - 145 mmol/L [facility] External Potassium 3.7 3.4 - 5.0 mmol/L [facility] External Chloride 105 98 - 107 mmol/L [facility] External Carbon Dioxide 24 22 - 31 mmol/L [facility] External Anion Gap (AG) 12 7 - 25 (calc) [facility] External Calcium 8.9 8.6 - 10.2 mg/dL [facility] External Total Protein 6.5 6.4 - 8.3 g/dL [facility] External Albumin 4.3 3.5 - 5.2 g/dL [facility] External Globulin 2.2 1.5 - 4.5 g/dL (calc) [facility] External Albumin/Globulin Ratio 2.0 1.1 - 2.5 (calc) [facility] External Bilirubin Total 0.2 0.1 - 1.2 mg/dL [facility] External Alkaline Phosphatase 57 30 - 121 U/L [facility] External AST (SGOT) 27 0 - 32 U/L [facility] External ALT (SGPT) 17 0 - 33 U/L [facility] External EGFR (If AFR/AM) 38(A) >=60 [facility] External Estimated GFR 33(A) >=60 [facility] Comment: NOTE Chronic kidney disease is [...] Res ult [facility] [address] [place] [address], documented in this encounter Visit Diagnoses Not on filedocumented in this encounter Care Teams Helpdesk Technician Relationship Specialty Start Date End Date System, Provider Not In, [address] [place] [address] PCP - General Family Medicine 07/15/21 10/20/23 Edson Pendleton MD [address] [place] [id number] PCP - General 10/21/23 Sal Mar MD [address] [place], [place] [id number] Medical Oncologist Hematology and Oncology 10/16/23 documented as of this encounter
--- OUTSIDE RECORDS SUMMARY | 2025-03-13 13:39 | XMS_ITS | Encounter Summary ---
Author Organization [facility] Address [address] [place] [address] Care Team Providers Care Box Inspector Name Role Phone System, Provider Not In MD Primary Care Provider Unavailable Sal Mar MD Unavailable [phone] Edson Pendleton MD Primary Care Provider [phone] Encounter Details Date Type Department Care Team (Late Contact Info) Description 11/08/2022 Orders Only [facility] [address] [place] [address] Sal Mar MD [address] [phone] Social History Tobacco Use Types Packs/Day Years [...] Surgery Spine & Joint [address] [facility], [address] [place] [address] Pedro Abdul PA [address] [place] [phone] documented as of this encounter Procedures Procedure Name Priority Date/Time Associated Diagnosis Comments IRON & TOTAL IRON BINDING CAPACITY, PLASMA (INCLUDES TRANSFERRIN) Routine 11/08/2022 12:45 PM EDT documented in this encounter Results * (ABNORMAL) Iron & Total Iron Binding Capacity, Plasma (Includes Transferrin) (11/08/2022 12:45 PM EDT) External Iron 105 37 - 145 ug/dL [facility] External Total Iron Binding Capacity 481(H) 250 - 450 ug/dL (calc) [facility] External Unsaturated Iron Binding Capacity 376(H) 112 - 347 ug/dL [facility] External Iron-Saturation% 22 15 - 50 % (calc) [facility] 11/08/2022 12:4 5 PM EDT 11/08/2022 12:54 PM EDT us Sal Mar MD LAB BLOOD ORDERABLES Final Res ult [facility] [address] [place] [address], documented in this encounter Visit Diagnoses Not on filedocumented in this encounter Care Teams Box Inspector Relationship Specialty Start Date End Date System, Provider Not In, [address] [place] [address] PCP - General Family Medicine 07/15/21 10/20/23 Edson Pendleton MD 12[address] [facility] [address] [facility] [address] [place] [address] PCP - General 10/21/23 Sal Mar MD [address] [place] [address] Medical Oncologist Hematology and Oncology 10/16/23 documented as of this encounter
--- OUTSIDE RECORDS SUMMARY | 2025-03-13 13:39 | XMS_ITS | Clinical Summary ---
Author Organization [facility] Address [address] [place] [address] Care Team Providers Care Rewinder Operator Helper Name Role Phone Sal Mar MD Unavailable [phone] Edson Pendleton MD Primary Care Provider [phone] Allergies Active Allergy Reactions Criticality Noted Date [...] Encounters Date Type Department Care Team Description 03/05/2025 Orders Only External Location [address] [place] [address] Provider, External 03/05/2025 Orders Only External Location [address] [place] [address] Provider, External 03/05/2025 Orders Only External Location [address] [place] [address] Provider, External 02/16/2025 2:00 PM EDT Infusion [facility] [place] [address] [place] [address] Iron deficiency 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 blood loss (Primary Dx); Crohn's disease of colon with complication (CMS/HCC); Stage 3 chronic kidney disease, unspecified whether stage 3a or 3b CKD (CMS/HCC) 02/16/2025 Travel 02/04/2025 2:00 PM EDT Infusion [facility] [address] [place] [address] Iron deficiency 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 blood loss (Primary Dx); Stage 3 chronic kidney disease, unspecified whether stage 3a or 3b CKD (CMS/HCC); Crohn's disease of colon with complication (CMS/HCC) 02/04/2025 Travel 02/02/2025 Travel 01/28/2025 1:45 PM EDT Office Visit [facility] [address] [place] [address] Sal Mar MD Iron deficiency 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 blood loss (Primary Dx); Crohn's disease of colon with complication (CMS/HCC); Stage 3 chronic kidney disease, unspecified whether stage 3a or 3b CKD (CMS/HCC) 01/28/[address] [facility] at [address] [address] Carrie Chavira, PharmD 01/28/2025 Travel 01/21/[address] [facility] [address] [place] [address] Sal Mar MD Requesting Appt from [...] 02/16/2025 2:00 PM EDT Plan of Treatment Upcoming Encounters Date Type Department Care Team (Late st Contact Info) Description 03/19/2025 8:00 AM EDT Office Visit Medical Office Building [facility] [address] [facility], [address] [place] [address] Pedro Abdul, PA [address] [place] [address] Health Maintenance Due Date Last Done Comments [facility]-Depression Screening 1938 [facility]-Medicare Annual Wellness (AWV) 1938 [facility]-/Child/Adol SDOH Screenings 1938 [facility]- SDOH Screenings 1956 [facility]-Adult SDOH Screenings 1956 [facility]-DTaP,Tdap,and Td Vaccines (1 - Tdap) 1957 [facility]-Zoster Vaccines (1 of 2) 1957 [facility]-Bone Density Scan 05/13/2022 05/13/2020 , 05/13/2020, 06/21/2017, Additional history exists [id number] Vaccine (9 - Moderna risk season) 2024 04/22/2024, 07/03/2023, 05/30/2022, Additional history [...] Procedure Name Priority Date/Time Associated Diagnosis Comments XR OUTSIDE IMAGES 03/05/2025 4:[address] MSK OUTSIDE IMAGES 03/05/2025 4:[address] NEURO OUTSIDE IMAGES 03/05/2025 4:19 PM EDT FERRITIN, SERUM STAT 01/25/2025 3:06 PM EDT [...] loss from Last 3 Months Results * XR OUTSIDE IMAGES (03/05/2025 4:29 PM EDT) Anatomical Region Laterality Modality Radiographic Trixie ging 03/05/2025 4:29 PM EDT us External Provider IMG XR PROCEDURES Final Result * CT MSK OUTSIDE IMAGES (03/05/2025 4:22 PM EDT) Anatomical Region Laterality Modality Computed Tomogra phy 03/05/2025 4:22 PM EDT us External Provider IMG CT PROCEDURES Final Result * CT NEURO OUTSIDE IMAGES (03/05/2025 4:19 PM EDT) Anatomical Region Laterality Modality Computed Tomogra phy 03/05/2025 4:19 PM EDT us External Provider IMG CT PROCEDURES Final Result * (ABNORMAL) Iron & Total Iron Binding Capacity, Plasma (Includes Transferrin) (01/25/2025 3:06 PM EDT) Pathologist [facility] External Iron 45 37 - 145 ug/dL 01/25/2025 7:00 PM EDT [facility] External Total Iron Binding Capacity 498(H) 250 - 450 ug/dL (calc) 01/25/2025 7:00 PM EDT [facility] External Unsaturated Iron Binding Capacity 453(H) 112 - 347 ug/dL 01/25/2025 7:00 PM EDT [facility] External Iron-Saturation% 9(L) 15 - 50 % (calc) 01/25/2025 7:00 PM EDT [facility] Blood Venous blood specimen / Unknown 01/25/2025 3:06 PM EDT 01/25/2025 6:31 PM EDT us Sal Mar MD LAB BLOOD ORDERABLES Final Res ult [facility] [place] [address], * (ABNORMAL) CBC and Differential (01/25/2025 3:06 PM EDT) External WBC 4.8 3.8 - 10.8 10*3/uL 01/25/2025 6:35 PM EDT [facility] External Red Blood Cell (RBC) 3.13(L) 3.80 - 5.20 10*6/uL 01/25/2025 6:35 PM EDT [facility] External Hemoglobin 9.4(L) 12.0 - 16.0 g/dL 01/25/2025 6:35 PM EDT [facility] External Hematocrit 27.9(L) 35.0 - 47.0 % 01/25/2025 6:35 PM EDT [facility] External MCV 89 80 - 100 fL 01/25/2025 6:35 PM EDT [facility] External MCH 30 26 - 35 pg 01/25/2025 6:35 PM EDT [facility] External MCHC 34 32 - 36 g/dL 01/25/2025 6:35 PM EDT [facility] External RDW 14.2 11.0 - 15.0 % 01/25/2025 6:35 PM EDT [facility] External Mean Platelet Volume 7.6 6.2 - 10.5 fL 01/25/2025 6:35 PM EDT [facility] External Platelet Count (Plt) 328 150 - 400 10*3/uL 01/25/2025 6:35 PM EDT [facility] External Neutrophil# 3.5 1.6 - 8.4 10*3/uL 01/25/2025 6:35 PM EDT [facility] External Lymphocyte# 0.6 0.4 - 5.1 10*3/uL 01/25/2025 6:35 PM EDT [facility] External Absolute Monocyte (Abs Hartley) 0.4 0.0 - 1.2 10*3/uL 01/25/2025 6:35 PM EDT [facility] External Eosinophils# 0.1 0.0 - 0.8 10*3/uL 01/25/2025 6:35 PM EDT [facility] External Baso# 0.1 0.0 - 0.3 10*3/uL 01/25/2025 6:35 PM EDT [facility] External Neutrophils % 73.6 42.0 - 78.0 % 01/25/2025 6:35 PM EDT [facility] External Lymphocyte % 13.2 11.0 - 47.0 % 01/25/2025 6:35 PM EDT [facility] External Monocyte % 9.2 0.0 - 11.0 % 01/25/2025 6:35 PM EDT [facility] External Eosinophil% 2.5 0.0 - 7.0 % 01/25/2025 6:35 PM EDT [facility] External Basophil % 1.5 0.0 - 3.0 % 01/25/2025 6:35 PM EDT [facility] External Nucleated RBC%-Auto 0.0 0.0 - 0.9 % 01/25/2025 6:35 PM EDT [facility] External Nucleated RBC Absolute 0.00 Not Estab. 10*3/uL 01/25/2025 6:35 PM EDT [facility] Blood Venous blood specimen / Unknown 01/25/2025 3:06 PM EDT 01/25/2025 6:32 PM EDT us Sal Mar MD LAB BLOOD ORDERABLES Final Res ult Performing Organization Address [facility] Co de Phone Number [facility] [address] [place] [address], * Ferritin, Serum (01/25/2025 3:06 PM EDT) Pathologist [facility] External Ferritin 13 13 - 157 ng/mL 01/25/2025 7:00 PM EDT [facility] Blood Venous blood specimen / Unknown 01/25/2025 3:06 PM EDT 01/25/2025 6:31 PM EDT us Sal Mar MD LAB BLOOD ORDERABLES Final Res ult Performing Organization Address [facility]/ZIP Co de Phone Number [facility] [address] [place] [address], [place] [phone] * (ABNORMAL) Comprehensive Metabolic Panel, Plasma (01/25/2025 3:06 PM EDT) External Glucose 104(H) 74 - 100 mg/dL 01/25/2025 7:00 PM [facility] External BUN 21(H) 6 - 20 mg/dL 01/25/2025 7:00 PM [facility] External Creatinine Blood 1.47(H) 0.50 - 0.95 mg/dL 01/25/2025 7:00 PM [facility] External BUN/Creat Ratio 14 10 - 20 (calc) 01/25/2025 7:00 PM [facility] External Sodium 142 136 - 145 mmol/L 01/25/2025 7:00 PM [facility] External Potassium 4.2 3.4 - 5.0 mmol/L 01/25/2025 7:00 PM [facility] External Chloride 107 98 - 107 mmol/L 01/25/2025 7:00 PM [facility] External Carbon Dioxide (CO2) 23 22 - 31 mmol/L 01/25/2025 7:00 PM [facility] External Anion Gap (AG) 12 7 - 25 (calc) 01/25/2025 7:00 PM [facility] External Calcium 8.4(L) 8.6 - 10.2 mg/dL 01/25/2025 7:00 PM [facility] External Total Protein 6.3(L) 6.4 - 8.3 g/dL 01/25/2025 7:00 PM [facility] External Albumin 3.7 3.5 - 5.2 g/dL 01/25/2025 7:00 PM [facility] External Globulin 2.6 1.5 - 4.5 025 7:00 PM [facility] External Albumin/Globulin Ratio 1.4 1.1 - 2.5 (calc) 01/25/2025 7:00 PM [facility] External Bilirubin Total <0.2 0.1 - 1.2 mg/dL 01/25/2025 7:00 PM [facility] External Alkaline Phosphatase 72 30 - 121 U/L 01/25/2025 7:00 PM [facility] External AST (SGOT) 17 0 - 32 U/L 01/25/2025 7:00 PM [facility] External ALT (SGPT) 10 0 - 33 U/L 01/25/2025 7:00 PM EDT [facility] External Estimated GFR 34(A) >=60 01/25/2025 7:00 PM EDT [facility] Comment: NOTE New calculation for GFR (CKD-EPI 2020) is formulated without race adjustment factors at the recommendation of the National Kidney Foundation and [place] Society of Nephrology. This calculation has not been validated in women. For pediatric patients refer to https://www.kidney.org/professionals/KDOQI/gfr_calculatorPed Blood Venous blood specimen / Unknown 01/25/2025 3:06 PM EDT 01/25/2025 6:31 PM EDT Sla Mar MD LAB BLOOD ORDERABLES Final Res ult [facility] [address] [place] [id number], from Last 3 Months Insurance [facility] Care Teams Rewinder Operator Helper Relationship Specialty Start Date End Date Edson Pendleton MD [address] [place] [address] PCP - General 10/21/23 Sal Mar MD [address] [place] [address] Medical Oncologist Hematology and Oncology 10/16/23
--- OUTSIDE RECORDS SUMMARY | 2025-03-13 13:39 | XMS_ITS | Encounter Summary ---
Author Organization [facility] Address [address] [place] [address] Care Team Providers Care Embedded Software Developer Name Role Phone System, Provider Not In MD Primary Care Provider Unavailable Sal Mar MD Unavailable [phone] Edson Pendleton MD Primary Care Provider [phone] Encounter Details Date Type Department Care Team (Late Contact Info) Description 11/09/2021 Orders Only [facility] [address] [place] [address] Sal Mar MD [address] [id number] Social History Tobacco Use Types Packs/Day Years [...] Building [facility] [address] [facility], [address] [place] [address] Pedro Abdul PA [address] [facility] [address] [place] [address] documented as of this encounter Procedures Procedure Name Priority Date/Time Associated Diagnosis Comments IRON & TOTAL IRON BINDING CAPACITY, PLASMA (INCLUDES TRANSFERRIN) Routine 11/09/2021 3:53 PM EDT documented in this encounter Results * (ABNORMAL) Iron & Total Iron Binding Capacity, Plasma (Includes Transferrin) (11/09/2021 3:53 PM EDT) External Iron 32(L) 37 - 145 ug/dL [facility] External Total Iron Binding Capacity 524(H) 250 - 450 ug/dL (calc) [facility] External Unsaturated Iron Binding Capacity 492(H) 112 - 347 ug/dL [facility] External Iron-Saturation% 6(L) 15 - 50 % (calc) [facility] 11/09/2021 3:53 PM EDT 11/09/2021 6:04 PM EDT us Sal Mar MD LAB BLOOD ORDERABLES Final Res ult [facility] [address] [place] [address], documented in this encounter Visit Diagnoses Not on filedocumented in this encounter Care Teams Embedded Software Developer Relationship Specialty Start Date End Date System, Provider Not In, [address] [place] [address] PCP - General Family Medicine 07/15/21 10/20/23 Edson Pendleton MD [address] [facility] [address] [facility] [address] [place] [address] PCP - General 10/21/23 Sal Mar MD [address] [place] [address] Medical Oncologist Hematology and Oncology 10/16/23 documented as of this encounter
--- OUTSIDE RECORDS SUMMARY | 2025-03-13 13:39 | XMS_ITS | Encounter Summary ---
Author Organization [facility] Address [address] [place] [address] Care Team Providers Care Contour Grinder Name Role Phone System, Provider Not In MD Primary Care Provider Unavailable Sal Mar MD Unavailable [phone] Edson Pendleton MD Primary Care Provider [phone] Encounter Details Date Type Department Care Team (Late Contact Info) Description 07/19/2022 Orders Only [facility] @ [facility] [address] [place] [address] Fidel Vasquez MD [address] [place], [place] [id number] Social History Tobacco Use Types Packs/Day Years [...] [facility] [address] [facility], [address] [place] [address] Pedro Abdul PA [address] [place] [address] documented as of this encounter Procedures Procedure Name Priority Date/Time Associated Diagnosis Comments CBC WITH AUTO DIFFERENTIAL Routine 07/19/2022 3:24 PM EST documented in this encounter Results * (ABNORMAL) CBC and Differential (07/19/2022 3:24 PM EST) External WBC 4.0 3.8 - 10.8 K/uL [facility] External Red Blood Cell (RBC) 3.72(L) 3.80 - 5.20 M/uL [facility] External Hemoglobin 11.3(L) 12.0 - 16.0 G/DL [facility] External Hematocrit 32.9(L) 35.0 - 47.0 % [facility] External MCV 89 80 - 100 fL [facility] External MCH 31 26 - 35 PG [facility] External MCHC 34 32 - 36 G/DL [facility] External RDW 15.7(H) 11.0 - 15.0 % [facility] External Mean Platelet Volume 7.4 6.2 - 10.5 fL [facility] External Platelets 263 130 - 400 K/uL [facility] External Neutrophil# 2.6 1.6 - 8.4 K/uL [facility] External Lymphocyte# 0.9 0.4 - 5.1 K/uL [facility] External Absolute Monocyte (Abs In[place]) 0.3 0.0 - 1.2 K/uL [facility] External Eosinophils# 0.1 0.0 - 0.8 K/uL [facility] External Baso# 0.1 0.0 - 0.3 K/uL [facility] External Neutrophils % 66.0 42.0 - 78.0 % [facility] External Lymphocyte % 21.4 11.0 - 47.0 % [facility] External Monocyte % 8.1 0.0 - 11.0 % [facility] External Eosinophil% 3.2 0.0 - 7.0 % [facility] External Basophil % 1.3 0.0 - 3.0 % [facility] External Nucleated RBC%-Auto 0.2 0.0 - 0.9 % [facility] External Nucleated RBC Absolute 0.01 Not Estab. K/uL [facility] 07/19/2022 3:24 PM EST 07/19/2022 3:49 PM EST Fidel Vasquez MD LAB BLOOD ORDERABLES Final R esult [facility] [address] [place] [address], documented in this encounter Visit Diagnoses Not on filedocumented in this encounter Care Teams Contour Grinder Relationship Specialty Start Date End Date System, Provider Not In, [address] [place] [address] PCP - General Family Medicine 07/15/21 10/20/23 Edson Pendleton MD [facility] [address] [place] [address] PCP - General 10/21/23 Sal Mar MD [address] [place] [id number] Medical Oncologist Hematology and Oncology 10/16/23 documented as of this encounter
--- OUTSIDE RECORDS SUMMARY | 2025-03-13 13:39 | XMS_ITS | Encounter Summary ---
Author Organization [facility] Address [address] [place] [address] Care Team Providers Care Airborne Missions Systems Name Role Phone System, Provider Not In MD Primary Care Provider Unavailable Sal Mar MD Unavailable [phone] Edson Pendleton MD Primary Care Provider [phone] Encounter Details Date Type Department Care Team (Late Contact Info) Description 11/08/2022 Orders Only [facility] [address] [place] [address] Sal Mar MD [address] [phone] Social History Tobacco Use Types Packs/Day Years [...] [facility] [address] [facility], [address] [place] [address] Pedro Abdul PA [address] [place] [address] documented as of this encounter Procedures Procedure Name Priority Date/Time Associated Diagnosis Comments COMPREHENSIVE METABOLIC PANEL, PLASMA Routine 11/08/2022 12:45 PM EDT documented in this encounter Results * (ABNORMAL) Comprehensive Metabolic Panel, Plasma (11/08/2022 12:45 PM EDT) External Glucose 93 74 - 100 mg/dL [facility] External BUN 27(H) 6 - 20 mg/dL [facility] External Creatinine Blood 1.39(H) 0.50 - 0.95 mg/dL [facility] External BUN/Creat Ratio 19 10 - 20 (calc) [facility] External Sodium 141 136 - 145 mmol/L [facility] External Potassium 4.3 3.4 - 5.0 mmol/L [facility] External Chloride 105 98 - 107 mmol/L [facility] External Carbon Dioxide 24 22 - 31 mmol/L [facility] External Anion Gap (AG) 12 7 - 25 (calc) [facility] External Calcium 8.4(L) 8.6 - 10.2 mg/dL [facility] External Total Protein 5.9(L) 6.4 - 8.3 g/dL [facility] External Albumin 3.7 3.5 - 5.2 g/dL [facility] External Globulin 2.2 1.5 - 4.5 g/dL (calc) [facility] External Albumin/Globulin Ratio 1.7 1.1 - 2.5 (calc) [facility] External Bilirubin Total 0.2 0.1 - 1.2 mg/dL [facility] External Alkaline Phosphatase 45 30 - 121 U/L [facility] External AST (SGOT) 16 0 - 32 U/L [facility] External ALT (SGPT) 11 0 - 33 U/L [facility] External Estimated GFR 37(A) >=60 [facility] Comment: NOTE New calculation for GFR (CKD-EPI 2020) is formulated without race adjustment factors at the recommendation of the National Kidney Foundation and [place] Society of Nephrology. This calculation has not been validated in women. For pediatric patients refer to https://www.kidney.org/professionals/KDOQI/gfr_calculatorPed 11/08/2022 12:4 5 PM EDT 11/08/2022 12:54 PM EDT Sal Mar MD LAB BLOOD ORDERABLES Final Res ult [facility] [address] [place] [address], documented in this encounter Visit Diagnoses Not on filedocumented in this encounter Care Teams Airborne Missions Systems Relationship Specialty Start Date End Date System, Provider Not In, [address] [place] [address] PCP - General Family Medicine 07/15/21 10/20/23 Edson Pendleton MD [address] [place] [address] PCP - General 10/21/23 Sal Mar MD [address] [place] [address] Medical Oncologist Hematology and Oncology 10/16/23 documented as of this encounter
--- OUTSIDE RECORDS SUMMARY | 2025-03-13 13:39 | XMS_ITS | Encounter Summary ---
Author Organization [facility] Address [address] [place] [address] Care Team Providers Care Crown Attacher Name Role Phone Sal Mar MD Unavailable [phone] Edson Pendleton MD Primary Care Provider [phone] Encounter Details Date Type Department Care Team (Late Contact Info) Description 03/05/2025 Orders Only External Location [address] [place] [address] Provider, External Social History Tobacco Use Types [...] [facility], [address] [place] [address] Pedro Abdul PA [address] [place] [address] documented as of this encounter Procedures Procedure Name Priority Date/Time Associated Diagnosis Comments XR OUTSIDE IMAGES 03/05/2025 4:29 PM EDT documented in this encounter Results * XR OUTSIDE IMAGES (03/05/2025 4:29 PM EDT) Anatomical Region Laterality Modality Radiographic Trixie ging 03/05/2025 4:29 PM EDT us External Provider IMG XR PROCEDURES Final Result documented in this encounter Visit Diagnoses Not on filedocumented in this encounter Additional Health Concerns Assessment Noted Time A fall risk assessment has been complete d for the patient 02/16/2025 2:28 PM EDT documented as of this encounter Care Teams Crown Attacher Relationship Specialty Start Date End Date Edson Pendleton MD [address] [place] [address] PCP - General 10/21/23 Sal Mar MD [address] [place] [address] Medical Oncologist Hematology and Oncology 10/16/23 documented as of this encounter
--- OUTSIDE RECORDS SUMMARY | 2025-03-13 13:39 | XMS_ITS | Encounter Summary ---
Author Organization [facility] Address [address] [place] [address] Care Team Providers Care Planimeter Operator Name Role Phone System, Provider Not In MD Primary Care Provider Unavailable Sal Mar MD Unavailable [phone] Edson Pendleton MD Primary Care Provider [phone] Encounter Details Date Type Department Care Team (Late Contact Info) Description 01/16/2022 Orders Only [facility] [address] [place] [address] Fidel Vasquez MD [address] [place], [place] [id number] Social History Tobacco Use Types Packs/Day Years [...] [facility], [address] [place] [address] Pedro Abdul PA [address] [place] [address] documented as of this encounter Procedures Procedure Name Priority Date/Time Associated Diagnosis Comments SURGICAL PATHOLOGY EXAM Routine 01/16/2022 documented in this encounter Results * Surgical Pathology Exam (01/16/2022) External Surgical Pathology SEE BELOW [facility] Comment: Department of Pathology Surgical Pathology Report NAME:ALEJANDRA MALONE PATH.:[id number] Copy to: Diagnosis: A) Ileum biopsy: Small [...] 0.7 cm. Entirely submitted in one cassette. YESIKA 01/16/2022 05:49 PM Microscopic Description: Microscopic examination performed. <Sign Out Dr. Cordoba> KEM GROVER MD Signed Out Date: 01/17/2022 10:48 Page 1 of 1 01/16/2022 01/16/2022 4:4 6 PM EDT us Fidel Vasquez MD LAB PATHOLOGY ORDERABLES Fin al Result [facility] [address] [place] [address], [place] [phone] documented in this encounter Visit Diagnoses Not on filedocumented in this encounter Care Teams Planimeter Operator Relationship Specialty Start Date End Date System, Provider Not In, [place] [address] PCP - General Family Medicine 07/15/21 10/20/23 Edson Pendleton MD [address] [place] [address] PCP - General 10/21/23 Sal Mar MD [address] [place] [address] Medical Oncologist Hematology and Oncology 10/16/23 documented as of this encounter
--- OUTSIDE RECORDS SUMMARY | 2025-03-13 13:39 | XMS_ITS | Encounter Summary ---
Author Organization [facility] Address [address] [place] [address] Care Team Providers Care Risk Prevention Engineer Name Role Phone System, Provider Not In MD Primary Care Provider Unavailable Sal Mar MD Unavailable [phone] Edson Pendleton MD Primary Care Provider [phone] Encounter Details Date Type Department Care Team (Late Contact Info) Description 02/08/2022 Orders Only [facility] [address] [place] [address] Sal Mar MD [address] [id number] Social History Tobacco Use Types Packs/Day Years [...] [facility] [address] [facility], [address] [place] [address] Pedro Abdul PA [address] [place] [address] documented as of this encounter Procedures Procedure Name Priority Date/Time Associated Diagnosis Comments COMPREHENSIVE METABOLIC PANEL, PLASMA Routine 02/08/2022 2:16 PM EDT documented in this encounter Results * (ABNORMAL) Comprehensive Metabolic Panel, Plasma (02/08/2022 2:16 PM EDT) External Glucose 106(H) 74 - 100 mg/dL [facility] External BUN 27(H) 6 - 20 mg/dL [facility] External Creatinine Blood 1.59(H) 0.50 - 0.95 mg/dL [facility] External BUN/Creat Ratio 17 10 - 20 (calc) [facility] External Sodium 141 136 - 145 mmol/L [facility] External Potassium 4.0 3.4 - 5.0 mmol/L [facility] External Chloride 103 98 - 107 mmol/L [facility] External Carbon Dioxide 26 22 - 31 mmol/L [facility] External Anion Gap (AG) 12 7 - 25 (calc) [facility] External Calcium 9.3 8.6 - 10.2 mg/dL [facility] External Total Protein 6.1(L) 6.4 - 8.3 g/dL [facility] External Albumin 4.1 3.5 - 5.2 g/dL [facility] External Globulin 2.0 1.5 - 4.5 g/dL (calc) [facility] External Albumin/Globulin Ratio 2.1 1.1 - 2.5 (calc) [facility] External Bilirubin Total 0.3 0.1 - 1.2 mg/dL [facility] External Alkaline Phosphatase 47 30 - 121 U/L [facility] External AST (SGOT) 19 0 - 32 U/L [facility] External ALT (SGPT) 13 0 - 33 U/L [facility] External Estimated GFR 32(A) >=60 [facility] Comment: NOTE New calculation for GFR (CKD-EPI 2020) is formulated without race adjustment factors at the recommendation of the National Kidney Foundation and [place] [employer] Neph[employer]. This calculation has not been validated in women. For pediatric patients refer to https://www.kidney.org/professionals/KDOQI/gfr_calculatorPed 02/08/2022 2:16 PM EDT 02/08/2022 2:34 PM EDT Sal aMr MD LAB BLOOD ORDERABLES Final Res ult [facility] [address] [place] [address], documented in this encounter Visit Diagnoses Not on filedocumented in this encounter Care Teams Risk Prevention Engineer Relationship Specialty Start Date End Date System, Provider Not In, [address] [place] [address] PCP - General Family Medicine 07/15/21 10/20/23 Edson Pendleton MD [address] [place] [address] PCP - General 10/21/23 Sal Mar MD [address] [place] [address] Medical Oncologist Hematology and Oncology 10/16/23 documented as of this encounter
--- OUTSIDE RECORDS SUMMARY | 2025-03-13 13:40 | XMS_ITS | Encounter Summary ---
Author Organization [facility] Address [address] [place] [address] Care Team Providers Care Tank Setter Helper Name Role Phone System, Provider Not In MD Primary Care Provider Unavailable Sal Mar MD Unavailable [phone] Edson Pendleton MD Primary Care Provider [phone] Encounter Details Date Type Department Care Team (Late Contact Info) Description 07/19/2022 Orders Only [facility] [address] [place] [address] Fidel Vasquez MD [address] [place], [place] [address] Social History Tobacco Use Types Packs/Day Years [...] [facility] [address] [facility], [address] [place] [address] Pedro Abdul PA [address] [place] [address] documented as of this encounter Procedures Procedure Name Priority Date/Time Associated Diagnosis Comments COMPREHENSIVE METABOLIC PANEL, PLASMA Routine 07/19/2022 3:24 PM EST documented in this encounter Results * (ABNORMAL) Comprehensive Metabolic Panel, Plasma (07/19/2022 3:24 PM EST) External Glucose 84 74 - 100 mg/dL [facility] External BUN 20 6 - 20 mg/dL [facility] External Creatinine Blood 1.18(H) 0.50 - 0.95 mg/dL [facility] External BUN/Creat Ratio 17 10 - 20 (calc) [facility] External Sodium 144 136 - 145 mmol/L [facility] External Potassium 4.2 3.4 - 5.0 mmol/L [facility] External Chloride 107 98 - 107 mmol/L [facility] External Carbon Dioxide 26 22 - 31 mmol/L [facility] External Anion Gap (AG) 11 7 - 25 (calc) [facility] External Calcium 9.2 8.6 - 10.2 mg/dL [facility] External Total Protein 6.6 6.4 - 8.3 g/dL [facility] External Albumin 4.2 3.5 - 5.2 g/dL [facility] External Globulin 2.4 1.5 - 4.5 g/dL (calc) [facility] External Albumin/Globulin Ratio 1.8 1.1 - 2.5 (calc) [facility] External Bilirubin Total 0.2 0.1 - 1.2 mg/dL [facility] External Alkaline Phosphatase 54 30 - 121 U/L [facility] External AST (SGOT) 20 0 - 32 U/L [facility] External ALT (SGPT) 12 0 - 33 U/L [facility] External Estimated GFR 46(A) >=60 [facility] Comment: NOTE New calculation for GFR (CKD-EPI 2020) is formulated without race adjustment factors at the recommendation of the National Kidney Foundation and [place] [employer] of Nephrology. This calculation has not been validated in women. For pediatric patients refer to https://www.kidney.org/professionals/KDOQI/gfr_calculatorPed 07/19/2022 3:24 PM EST 07/19/2022 3:56 PM EST Fidel Vasquez MD LAB BLOOD ORDERABLES Final R esult [facility] [address] [place] [address], documented in this encounter Visit Diagnoses Not on filedocumented in this encounter Care Teams Tank Setter Helper Relationship Specialty Start Date End Date System, Provider Not In, [address] [place] [address] PCP - General Family Medicine 07/15/21 10/20/23 Edson Pendleton MD [address] [facility] [address] [place] [address] PCP - General 10/21/23 Sal Mar MD [address] [place] [address] Medical Oncologist Hematology and Oncology 10/16/23 documented as of this encounter
--- OUTSIDE RECORDS SUMMARY | 2025-03-13 13:40 | XMS_ITS | Referral Summary ---
Author Organization [employer] ([place], [place], [place], [place]) Address [address] [place] [address] Care Team Providers Care Low Pressure Kettle Operator Name Role Phone Unavailable Primary Care Provider [...]
--- OUTSIDE RECORDS SUMMARY | 2025-03-13 13:40 | XMS_ITS | Clinical Summary ---
Author Organization [facility] Address [address] [place] [address] Care Team Providers Care Registered Nurse Practitioner Name Role Phone Provider, No Known Primary [...] Payer (Ef fective 2003-Present) Name:Alejandra Ramos Member ID:[id number] Relation to Subscriber:Self Name:Alejandra Ramos Subscriber ID:[id number] Payer ID:[id number] Group ID:Not on file Type:Not on file Address: [id number] [employer] Care Teams Registered Nurse Practitioner Relationship Specialty Start Date End Date Provider, No Known [facility] [place] [address] PCP - General 09/21/19
--- OUTSIDE RECORDS SUMMARY | 2025-03-13 13:40 | XMS_ITS | Encounter Summary ---
Author Organization [facility] Address [address] [place] [address] Care Team Providers Care Insect Control Aide Name Role Phone System, Provider Not In MD Primary Care Provider Unavailable Sal Mar MD Unavailable [phone] Edson Pendleton MD Primary Care Provider [phone] Encounter Details Date Type Department Care Team (Late Contact Info) Description 07/19/2022 Orders Only [facility] [address] [place] [address] Fidel Vasquez MD [address] [place], [place] [id number] Social History Tobacco Use Types Packs/Day Years [...] [facility] [address] [facility], [address] [place] [address] Pedro Abdul PA [address] [place] [address] documented as of this encounter Procedures Procedure Name Priority Date/Time Associated Diagnosis Comments C-REACTIVE PROTEIN, PLASMA Routine 07/19/2022 3:24 PM EST documented in this encounter Results * C-Reactive Protein, Plasma (07/19/2022 3:24 PM EST) External C-Reactive Protein <0.06 0.00 - 0.49 mg/dL [facility] 07/19/2022 3:24 PM EST 07/19/2022 3:56 PM EST Fidel Vasquez MD LAB BLOOD ORDERABLES Final R esult [facility] [address] [place] [address], documented in this encounter Visit Diagnoses Not on filedocumented in this encounter Care Teams Insect Control Aide Relationship Specialty Start Date End Date System, Provider Not In, [address] [place] [address] PCP - General Family Medicine 07/15/21 10/20/23 Edson Pendleton MD [facility] [address] [place] [address] PCP - General 10/21/23 Sal Mar MD [address] [place] [address] Medical Oncologist Hematology and Oncology 10/16/23 documented as of this encounter
--- OUTSIDE RECORDS SUMMARY | 2025-03-13 13:40 | XMS_ITS | Clinical Summary ---
Author Organization [employer] ([place], [place], [place], [place]) Address [address] [place] [address] Care Team Providers Care Geological Technician Name Role Phone Unavailable Primary Care Provider [...]
--- OUTSIDE RECORDS SUMMARY | 2025-03-13 13:40 | XMS_ITS | Encounter Summary ---
Author Organization [facility] Address [address] [place] [address] Care Team Providers Care Geriatric Physician Name Role Phone System, Provider Not In MD Primary Care Provider Unavailable Sal Mar MD Unavailable [phone] Edson Pendleton MD Primary Care Provider [phone] Encounter Details Date Type Department Care Team (Late Contact Info) Description 07/19/[address] [facility] [address] [place] [address] Fidel Vasquez MD [address] [place], [place] [id number] Social History Tobacco Use Types Packs/Day Years [...] [facility] [address] [facility], [address] [place] [address] Pedro Abdul PA [address] [place] [address] documented as of this encounter Procedures Procedure Name Priority Date/Time Associated Diagnosis Comments IRON & TOTAL IRON BINDING CAPACITY, PLASMA (INCLUDES TRANSFERRIN) Routine 07/19/2022 3:24 PM EST documented in this encounter Results * (ABNORMAL) Iron & Total Iron Binding Capacity, Plasma (Includes Transferrin) (07/19/2022 3:24 PM EST) External Iron 93 37 - 145 ug/dL [facility] External Total Iron Binding Capacity 507(H) 250 - 450 ug/dL (calc) [facility] External Unsaturated Iron Binding Capacity 414(H) 112 - 347 ug/dL [facility] External Iron-Saturation% 18 15 - 50 % (calc) [facility] 07/19/2022 3:24 PM EST 07/19/2022 3:56 PM EST us Fidel Vasquez MD LAB BLOOD ORDERABLES Final R esult [facility] [address] [place] [address], documented in this encounter Visit Diagnoses Not on filedocumented in this encounter Care Teams Geriatric Physician Relationship Specialty Start Date End Date System, Provider Not In, [address] [place] [address] PCP - General Family Medicine 07/15/21 10/20/23 Edson Pendleton MD [address] [facility] [address] [place] [address] PCP - General 10/21/23 Sal Mar MD [address] [place] [address] Medical Oncologist Hematology and Oncology 10/16/23 documented as of this encounter
--- OUTSIDE RECORDS SUMMARY | 2025-03-13 13:41 | XMS_ITS | Patient Health Record ---
Author Organization [facility] Address [address] [facility] [address] [place] [id number] Care Team Providers Care Dual Rate Supervisor Name Role Phone Unique Pendleton Primary Care Provider Daniel Keys Unavailable [phone] Claudette Rees Unavailable [phone] Mar Paz Unavailable [phone] Allergies Allergen (clinical drug ingredient) Drug/Non Drug [...] ctive Results Component Value Reference Range Notes P-Vitamin B12 Reviewed date:01/03/2025 10:10:06 PM Interpretation:464 Performing Lab: Notes/Report: CLIA: [id number] Sawyer Hyman MD, Alliances Consultant [address] [place] [address] [address], [address], [place] [address] Test performed by [facility] Vitamin B12 653 755-7115 pg/mL P-Comprehensive Metabolic Pa lyndsey (CMP) Reviewed date:01/03/2025 10:10:06 PM Interpretation:GFR 39 Performing Lab: Notes/Report: Test performed by [facility] [address] [facility] , [address], [place] [address] Sawyer Hyman MD, Alliances Consultant CLIA: [id number] Sodium 143 135-145 mmol/L Potassium 4.0 3.5-5.3 [...] Interpretation:1.4 Performing Lab: Notes/Report: Test performed by [facility] [address] [place] [address] , [place] [address] Sawyer Hyman MD, Alliances Consultant CLIA: [id number] Magnesium 1.4 1.6-2.4 mg/dL P-TSH Reviewed date:01/03/2025 10:10:06 PM Interpretation:3.24 Performing Lab: Notes/Report: Test performed by [facility] [address] [place] [address] , [place] [address] Sawyer Hyman MD, Alliances Consultant CLIA: [id number] TSH 3.24 0.43-5.25 mU/L CBC Venipuncture (in house) Reviewed date:01/03/2025 10:10:06 [...] - 38 platlet 299 100 - 400 X ray : Ankle, left Reviewed date:01/21/2025 08:24:07 AM Interpretation:soft tissue swelling Performing Lab: Notes/Report: soft tissue swelling P-Comprehensive Metabolic Pa lyndsey (CMP) Reviewed date:06/25/2024 08:39:31 AM Interpretation: Performing Lab: Notes/Report: CLIA: [id number] Sawyer Hyman MD, Alliances Consultant [facility] , [address], [place] [address] Test performed by [facility] Sodium 142 135-145 mmol/L Potassium 4.6 3.5-5.3 [...] mg/dL A/G Ratio 1.9 1.1-2.5 P-Magnesium Reviewed date:06/25/2024 08:39:31 AM Interpretation: Performing Lab: Notes/Report: Test performed by [facility] , [address], [place] [address] Sawyer Hyman MD, Alliances Consultant CLIA: [id number] Magnesium 1.2 1.6-2.4 mg/dL CBC Venipuncture (in house) Reviewed date:06/25/2024 08:39:31 [...] Notes/Report: benign result benign Reason For Referral Reason patient needs PT/OT Diagnosis 1 Compression fracture of L2 vertebra, initial encounter (S32.020A) Referral Organization [facility] Referring Provider First Name Unique Villareal Referring Provider Last Name Helder Referring Provider Speciality [facility] Referred Provider Specialty [facility] General Notes Tamar Galeano 2024 01:28:40 PM > sent to [employer] Referral Priority Routine Medications Medication SIG (Take, Route, Frequency, Duration) Notes Start Date End Date Status Mometasone Furoate 0.1 % 1 application Externally Once a day 01/19/2025 Active tiZANidine HCl 2 MG 1 tablet at bedtime as needed Orally Once a day; Duration: 30 day(s) Active traMADol HCl 50 MG 1 or 2 tabs Orally 3 times a day prn 03/09/2025 Active ALPRAZolam 0.5 MG 1 tab(s) orally [...] a day; Duration: 30 day(s) 09/14/2020 Active Diphenoxylate-Atropine 2.5-0.025 MG 1 tab Orally Four times a day prn 03/09/2025 Active Cyclobenzaprine HCl 5 MG 1 tablet [...] Intramuscular 05/07/2023 Administered Sandy Hawkins administered per [facility], failed to document in ecw Prevnar (PCV13) [...] Status W/U Status Risk Notes Problem Sinusitis (16210751) Sinusitis (J32.9) Active c onfirmed Problem Chronic renal insufficiency (021936039) Chronic renal insufficiency (N18.9) Active confirmed Problem Hypertriglyceridemia (044966068) Hypertriglyceridemia (E78.1) Active confirmed Problem Anxiety (36579949) Anxiety (F41.9) Active confi rmed Problem Hypertension (45435452) Hypertension (I10) Active confirmed Problem Osteopenia (488774859) Osteopenia (M85.80) Active confirmed Problem Sciatic nerve lesion (081831740) Piriformis syndrome of left side (G57.02) Active confirmed Problem Osteoarthritis (689224108) Osteoarthritis (M19.90) Active confirmed Problem Paresthesia (99348878) Paresthesia (R20.2) Active confirmed Problem Iron deficiency anemia (42205057) Iron deficiency anemia (D50.9) Active confirmed Problem Vitamin B12 deficiency (non anemic) (38993689) Vitamin B 12 deficiency (E53.8) Active confirmed Problem Sciatica (18812276) Sciatica of left side (M54.32) Active confirmed Problem Chronic maxillary sinusitis (94055776) Chronic maxillary sinusitis (J32.0) Active confirmed Problem Crohn's disease of large bowel (2247970) Crohn's disease of large intestine without complications (K50.10) Active confirmed Problem Pulmonary fibrosis (05274301) Pulmonary fibrosis (J84.10) Active confirmed Problem Crohn disease (19074661) Crohn disease (K50.90) Active confirmed Problem History of tuberculosis (490740297) 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) Active confirmed Problem Transient cerebral ischemia (970059073) Transient cerebral ischemia, unspecified type (G45.9) Active confirmed Problem Localized, primary osteoarthritis of the pelvic region and thigh (013821474) 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) Active confirmed Problem Arthritis of right knee (0945748457513485) Arthritis of knee, 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) Active confirmed Problem Sciatica (09705659) Left sciatic nerve pain (M54.32) Active confirmed Problem Chronic anemia (457833025) Chronic anemia (D64.9) Active confirmed Problem Localized, primary osteoarthritis of the wrist (603728591) 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 Vital Signs Heart Rate 83 /min 01/19/2025 Blood pressure diastolic 74 mm Hg 01/19/2025 Height 64 in 01/19/2025 Blood pressure systolic 133 mm Hg 01/19/2025 Weight 125.2 lbs 01/19/2025 BMI 21.49 kg/m2 01/19/2025 Encounters Encounter Location Date Provider Diagnosis [facility] [address] [place], [place] [id number] 03/30/2024 R Mono Helder Vitamin B12 deficien cy E53.8 [facility] [address] [place] [id number] 04/15/2024 Daniel [place] Vitamin B12 deficien cy E53.8 [facility] [address] [facility] [address] [place] [id number] 04/27/2024 Claudette Rees Sinusitis J32.9 [facility] [address] [place], [place] [id number] 05/06/2024 R Mono Helder Vitamin B12 deficien cy E53.8 [facility] [address] [place], [place] [id number] 05/21/2024 R Mono Helder B12 vitamin deficien cy 266.2 [facility] [address] [place] [id number] 06/05/2024 R Mono Helder Vitamin B 12 deficie ncy E53.8 [facility] [address] [place], [place] [id number] 06/23/2024 R Mono Helder Leg edema R60.0 ; Hypertension I10 ; Chronic renal insufficiency N18.9 ; Hypertriglyceridemia E78.1 ; Vitamin B 12 deficiency E53.8 and Pulmonary fibrosis J84.10 [facility] [address] [place] [id number] 07/16/2024 R Mono Helder Arthritis of knee, r ight M19.90 ; Bakers cyst of knee, right M71.21 and Vitamin B 12 deficiency E53.8 [facility] [address] [place], [place] [id number] 08/10/2024 R Mono Helder Vitamin B 12 deficie ncy E53.8 [facility] [address] [place], [place] [id number] 08/24/2024 R Mono Helder Vitamin B 12 deficie ncy E53.8 [facility] [address] [place], [place] [id number] 10/09/2024 R Mono Helder Vitamin B 12 deficie ncy E53.8 and Hypertension I10 [facility] [address] [place], [place] [id number] 10/28/2024 R Mono Helder Vitamin B 12 deficie ncy E53.8 [facility] [address] [facility] [address] [place], [place] [id number] 11/12/2024 R Mono Helder Vitamin B 12 deficie ncy E53.8 [facility] [address] [facility] [address] [place], [place] [id number] 12/17/2024 R Mono Helder Vitamin B 12 deficie ncy E53.8 [facility] [address] [facility] [address] [place], [place] [id number] 12/24/2024 Mar Paz Acute left ankle talita n M25.572 ; BMI 21.0-21.9, adult Z68.21 ; Pulmonary fibrosis J84.10 ; Crohn disease K50.90 ; Chronic anemia D64.9 and Crohn's disease of large intestine without complications K50.10 [facility] [address] [facility] [address] [place], [place] [id number] 12/29/2024 R Mono Helder Adult general medica l examination Z00.00 ; Paresthesia R20.2 ; Iron deficiency anemia D50.9 ; Leg edema R60.0 ; Pulmonary fibrosis J84.10 ; Anxiety F41.9 ; Crohn disease K50.90 ; BMI 20.0-20.9, adult Z68.20 ; Osteopenia M85.80 ; History of TB (tuberculosis) Z86.11 ; Hypertension I10 and Hypertriglyceridemia E78.1 [facility] [address] [place], [place] [id number] 01/11/2025 Daniel [place] Vitamin B 12 deficie ncy E53.8 [facility] [address] [place] [id number] 01/19/2025 R Mono Helder Acute left ankle talita n M25.572 ; Eczema L30.9 and BMI 21.0-21.9, adult Z68.21 [facility] [address] [place] [id number] 04/21/2024 R Mono Helder [facility] [address] [place] [id number] 06/25/2024 R Mono Helder [facility] [address] [place] [id number] 06/25/2024 R Mono Helder [facility] [address] [place], [place] [id number] 10/12/2024 R Mono Helder [facility] [address] [place] [id number] 12/17/2024 R Mono Helder [facility] [address] [place] [id number] 01/03/2025 R Mono Helder [facility] [address] [place], [place] [id number] 01/04/2025 R Mono Helder Anxiety F41.9 [facility] [address] [place], [place] [id number] 01/11/2025 R Mono Helder Hypertension I10 [facility] [address] [place], [place] [id number] 01/21/2025 R Mono Helder [facility] [address] [place], [place] [id number] 02/04/2025 R Mono Pendleton Hypertension I10 [facility] [address] [place], [place] [id number] 02/25/2025 R Mono Pendleton [facility] [address] [place] [id number] 03/08/2025 R Mono Pendleton [facility] [address] [place] [id number] 03/11/2025 R Mono Pendleton Assessments Encounter Date Diagnosis (ICD Code) Assessment Notes Treatment Notes Treatment Clinical Notes Section Notes 07/16/2024 Bakers cyst of knee, right (ICD-10 - M71.21) 07/16/2024 Arthritis of knee, right (ICD-10 - M19.90) Continue diclofenac cream. If symptoms persist consider physical therapy. 06/23/2024 Hypertension (ICD-10 - I10) 06/23/2024 Leg edema (ICD-10 - R60.0) 06/05/2024 Vitamin B 12 deficie ncy (ICD-10 - E53.8) 05/21/2024 B12 vitamin deficien cy (ICD9-CM - 266.2) 05/06/2024 Vitamin B12 deficien cy (ICD-10 - E53.8) 04/27/2024 Sinusitis (ICD-10 - J32.9) pt cannot take many ABX; will try Zithromax; encouraged the use of the Flonase, fluids, rest, supportive measures for fever/symptom relief 04/15/2024 Vitamin B12 deficien cy (ICD-10 - E53.8) 03/30/2024 Vitamin B12 deficien cy (ICD-10 - E53.8) 08/10/2024 Vitamin B 12 deficie ncy (ICD-10 - E53.8) 02/04/2025 Hypertension (ICD-10 - I10) 01/11/2025 Vitamin B 12 deficie ncy (ICD-10 - E53.8) 01/11/2025 Hypertension (ICD-10 - I10) 10/09/2024 Vitamin B 12 deficie ncy (ICD-10 - E53.8) 08/24/2024 Vitamin B 12 deficie ncy (ICD-10 - E53.8) 12/24/2024 Acute left ankle talita n (ICD-10 - M25.572) Patient would like to try steroids before getting x-rays. 12/24/2024 BMI 21.0-21.9, adult (ICD-10 - Z68.21) 10/28/2024 Vitamin B 12 deficie ncy (ICD-10 - E53.8) 01/04/2025 Anxiety (ICD-10 - F41.9) 12/29/2024 Paresthesia (ICD-10 - R20.2) 12/17/2024 Vitamin B 12 deficie ncy (ICD-10 - E53.8) 11/12/2024 Vitamin B 12 deficie ncy (ICD-10 - E53.8) 01/19/2025 Eczema (ICD-10 - L30.9) 01/19/2025 Acute left ankle talita n (ICD-10 - M25.572) Recommend compression socks 12/29/2024 Adult general medica l examination (ICD-10 - Z00.00) Patient instructed to return to office Annually for Annual Wellness Visits to include annual screenings of Pain assessment, Functional Ability assessment, Cognitive Ability assessment, Fall Risk assessment, Depression screening and Bladder control screening. 01/19/2025 BMI 21.0-21.9, adult (ICD-10 - Z68.21) 12/29/2024 Iron deficiency anem ia (ICD-10 - D50.9) 10/09/2024 Hypertension (ICD-10 - I10) 12/24/2024 Pulmonary fibrosis (ICD-10 - J84.10) 06/23/2024 Chronic renal insufficiency (ICD-10 - N18.9) 07/16/2024 Vitamin B 12 deficie ncy (ICD-10 - E53.8) 06/23/2024 Hypertriglyceridemia (ICD-10 - E78.1) 12/24/2024 Crohn [...] Date MEDICARE PART B [address] [address] [place] [address] [id number] PARVIN MALONE Self - patient is the insured [facility] [address] [place] [id number] PARVIN MALONE Self - patient is the [...] EGD 2019 Hospitalization History Reason Date(Month/Year) Hypertension- [facility] 12/28/2017
--- NOTE | 2025-03-13 14:02 | HMH.EDGENADL ---
Discharge Plan Disposition Patient Disposition: Home, Self-Care Condition: Good Prescriptions Prescriptions: No Action azathioprine 50 tablet 50 mg PO DAILY fenofibrate nanocrystallized 48 tablet 1 tab PO DAILY methocarbamol 750 mg tablet 750 mg PO Q8H Qty: 90 0RF potassium chloride 10 mEq capsule, extended release 10 meq PO BID Patient Comments: TAKE 1 CAPSULE TWICE DAILY alprazolam 0.5 mg tablet 0.5 mg PO DAILYP PRN (Reason: Anxiety) Patient Comments: TAKE 1 TABLET ONCE DAILY ASNEEDED amlodipine 10 mg tablet 10 mg PO DAILY Patient Comments: TAKE 1 TABLET ONCE DAILY benazepril 20 mg tablet 20 mg PO DAILY Patient Comments: TAKE 1 TABLET ONCE DAILY Referrals Follow up/Referrals: Edson Pendleton MD [Primary Care Provider, Medical] - See instructions Activity Restrictions/Add. Instructions Additional Instructions/Restrictions: I encourage you to follow up with Dr. Vasquez with gastroenterology early next week to discuss follow-up as well as possibly getting started on magnesium supplementation as your magnesium has been low recently. If you are able to provide a stool sample at home, you can return it to have it evaluated for any infectious cause of your diarrhea. Continue to take your potassium supplementations at home as scheduled. If you develop any new or worsening symptoms, or if you become concerned for your health for any reason, return to the emergency department for evaluation. Clinical Impressions Clinical Impression: Acute hypokalemia, Hypomagnesemia, Creatinine elevation Diarrhea Qualifiers: Diarrhea type: unspecified type Qualified Code(s): R19.7 - Diarrhea, unspecified Print Language Print Language: Portuguese Discharge ED Provider: Camden Bush General Adult HPI <Alireza Tamez DO - Last Filed: 03/13/25 15:56> General Chief complaint: Weakness Stated complaint: diarrhea, back pain Time Seen by Provider: 03/13/25 13:33 Mode of Arrival: Wheelchair Source of Information: Patient and Relative Description of Symptoms (Recalled from ER Triage Doc. by RN): pt reports she has Crohns and has had diarrhea for a week. She had low potassium and mag the last time she was here so shes worried. History of Present Illness HPI narrative: This is an 84-year-old female patient, with past medical history of hypertension and Crohn's disease on azathioprine, who is presented to the emergency department today for a laboratory draw. The patient states that she has been having worse diarrhea in the morning and in the evening but during the day she is not having excessive diarrhea. She is not having any blood in her stool or melena. She tells me that she is scheduled to see her workers compensation claims adjuster [facility] this upcoming month at the end of March. I have actually seen this patient twice myself in the last month and both times she has had hypokalemia. The most prior time that I saw the patient was on 03/05/2025 and she necessitated admission to the hospital for her electrolyte derangements. She tells me that her spasms from her prior visits have resolved, but she is concerned that the amount of diarrhea she is having has now resulted in her becoming hypokalemic again. Otherwise, she is not having any fevers, no nausea or vomiting, and no abdominal pain or cramping. She is not having any urinary symptoms. She has had no fevers. She also denies recent antibiotic use. Related Data Home Medications ?Medication ?Instructions ?Recorded ?Confirmed azathioprine 50 mg tablet 50 mg PO DAILY Cronhs 12/28/17 03/06/25 fenofibrate nanocrystallized 48 mg 1 tab PO DAILY Cholesterol 12/28/17 03/06/25 tablet alprazolam 0.5 mg tablet 0.5 mg PO DAILYP PRN Anxiety 03/06/25 03/06/25 amlodipine 10 mg tablet 10 mg PO DAILY 03/06/25 03/06/25 benazepril 20 mg tablet 20 mg PO DAILY 03/06/25 03/06/25 potassium chloride 10 mEq 10 meq PO BID 03/06/25 03/06/25 capsule,extended release Previous Rx's ?Medication ?Instructions ?Recorded methocarbamol 750 mg tablet 750 mg PO Q8H #90 tabs 03/01/25 Allergies Allergy/AdvReac Type Severity Reaction Status Date / Time erythromycin base Allergy Fever Verified 02/15/25 11:43 Penicillins Allergy Rash Verified 02/15/25 11:43 streptomycin Allergy Fever Verified 02/15/25 11:43 tetracycline Allergy Rash Verified 02/15/25 11:43 [facility] <Alireza Tamez DO - Last Filed: 03/13/25 15:56> [facility] Disclaimer: The information contained in this section may have been updated after the patient was seen, as this information can be updated by other users. Medical History (Updated 03/13/25 @ 15:56 by Alireza Tamez DO) Crohn disease HTN (hypertension) Surgical History (Updated 03/05/25 @ 19:35 by Norman Humphreys MD) History of partial colectomy Social History Smoking Status: Never smoker alcohol intake: never current occupational status: retired Travel in the last 8 weeks?: None Have you lived/traveled outside US in past 30 days?: No Contact w/someone who lives/traveled outside US past 30 days?: No Exposure to someone with infectious disease in past 14 days?: No Do you have a fever (greater than 100.4 F or 38 C)?: No Have you tested positive for COVID-19?: No Exposed to someone with COVID-19 in past 14 days?: No Do you have a sore throat?: No Do you have a cough?: No Do you have any weakness?: No Do you have any diarrhea?: Yes Are you experiencing any unusual bleeding?: No Do you have any muscle aches/pain?: Yes Do you have any abdominal pain?: No Are you experiencing loss of taste or smell?: No Other Medical History Have you received the Flu Vaccine for this season: No Have you received the Pneumonia Vaccine: No <Alireza Tamez DO - Last Filed: 03/13/25 15:56> ROS Obtained: Yes Systems reviewed as appropriate & no additional complaints except as documented Physical Exam <Alireza Tamez DO - Last Filed: 03/13/25 15:56> General General appearance: other (See MDM) Respiratory Respiratory exam: Present other (See MDM) Cardiovascular Cardiovascular exam: Present other (See MDM) Neurological Exam Neurological exam: Present other (See MDM) Medical Decision Making <Alireza Tamez DO - Last Filed: 03/13/25 15:56> Medical Records Medical records reviewed: Yes I reviewed the patient's medical records. Screening: Per USPSTF and CDC recommendations, given the prevalence of disease in our region, it is our hospital?s policy to screen for HIV and viral Hepatitis for all patients aged 18 and over and those with ongoing risk factors. Jak Inquiry Pt receiving controlled substance: No Jak was queried for this patient: No Vital Signs: 03/13/25 13:30 03/13/25 13:43 03/13/25 14:30 Temperature 97.8 F Temperature Source Oral Pulse Rate 98 H 73 Pulse Rate [Left] 98 H Respiratory Rate 15 Blood Pressure 121/72 Blood Pressure [Right Arm] 121/78 Blood Pressure Mean [Right Arm] 92 02 Sat by Pulse Oximetry 99 100 97 Oxygen Delivery Method Room Air 03/13/25 15:30 03/13/25 15:45 03/13/25 16:00 Temperature Temperature Source Pulse Rate 69 71 75 Pulse Rate [Left] Respiratory Rate Blood Pressure 124/55 L 125/58 L 137/71 Blood Pressure [Right Arm] Blood Pressure Mean [Right Arm] 02 Sat by Pulse Oximetry 99 99 100 Oxygen Delivery Method 03/13/25 16:15 03/13/25 16:30 Temperature Temperature Source Pulse Rate 73 73 Pulse Rate [Left] Respiratory Rate Blood Pressure 125/52 L 134/57 L Blood Pressure [Right Arm] Blood Pressure Mean [Right Arm] 02 Sat by Pulse Oximetry 99 99 Oxygen Delivery Method Lab Data Lab Results 03/13/25 13:55: WBC 7.6, RBC 4.27, Hgb 13.2, Hct 39.8, MCV 93.2, MCH 30.9, MCHC 33.2, RDW 14.6, Plt Count 352, MPV 10.4, Neut % (Auto) 80.8 H, Lymph % (Auto) 7.0 L, Toombs % (Auto) 9.9 H, Eos % (Auto) 0.9, Baso % (Auto) 1.1, Neut # (Auto) 6.1, Lymph # (Auto) 0.5 L, Toombs # (Auto) 0.8, Eos # (Auto) 0.1, Baso # (Auto) 0.1, Total Counted 100, Neutrophils % (Manual) 81 H, Lymphocytes % (Manual) 8 L, Monocytes % (Manual) 9, Eosinophils % (Manual) 1, Basophils % (Manual) 1.0, Platelet Estimate Normal, RBC Morphology Normal, Sodium 139, Potassium 3.0 L, Chloride 110 H, Carbon Dioxide 22, Anion Gap 10.0, BUN 33 H, Creatinine 1.50 H, Estimated Creat Clear 21, Estimated GFR 33 L, Est GFR ( Amer) 40 L, Glucose 111 H, Calcium 9.3, Magnesium 1.5 L, Total Bilirubin 0.4, AST 27, ALT 13, Alkaline Phosphatase 112, Total Protein 6.7, Albumin 4.0, Globulin 2.7, Albumin/Globulin Ratio 1.5 03/13/25 13:55 03/13/25 13:55 Orders (Tests/Meds): ED MEDICATIONS Discontinued Medications Generic Name Dose Route Start Last Admin Trade Name Humbertoq PRN Reason Stop Dose Admin Magnesium Sulfate 2 gm in 50 mls @ 50 mls/hr 03/13/25 14:51 03/13/25 16:31 Magnesium Sulfate 2gm/50ml Premix IV 03/13/25 15:50 Infused ONCE ONE Infusion Lactated Ringer's 1,000 mls @ 999 mls/hr 03/13/25 14:51 03/13/25 16:30 Lactated Ringer's 1000 Ml Bag IV 03/13/25 15:51 Infused .Q1H1M ONE Infusion Potassium Chloride 60 meq 03/13/25 14:51 03/13/25 14:58 Potassium Chloride 20meq Tab PO 03/13/25 14:52 60 meq ONCE ONE Administration ORDERS Category Date Time Status Complete Blood Count Auto Diff Stat Lab 03/13/25 13:55 Completed Comprehensive Metabolic Panel Stat Lab 03/13/25 13:55 Completed Diarrhea 23 Panel, PCR Stat Lab 03/13/25 14:14 Ordered MAG [Magnesium] Stat Lab 03/13/25 13:55 Completed Medical Decision Narrative: In summary, this is an 84-year-old female patient who is presenting to the emergency department today for evaluation of suspected hypokalemia in the setting of diarrhea which she believes is related to her Crohn's disease. Comorbidities include past medical history of Crohn's as well as recurrent hypokalemia and hypertension. On initial evaluation of the patient they were resting comfortably in no acute distress and nontoxic in appearance. They are hemodynamically stable, saturating well room air, and are neurologically intact. On physical examination she is appropriately alert and oriented with a GCS of 15. Heart and lungs are clear to auscultation bilaterally. Abdomen is completely benign with no tenderness in all 4 quadrants. Her mucous membranes do appear dry raising concern for dehydration. Differential diagnosis includes dehydration, acute kidney injury, hypokalemia, hypomagnesemia, among others. We will also try to obtain a stool sample from the patient to run a diarrhea panel to ensure that she is not experiencing infectious diarrhea. Initial interventions included hematologic labs as well as a diarrhea panel. Labs were personally interpreted by me and demonstrate hypokalemia as well as hypomagnesemia. The patient has no leukocytosis. No significant anemia. She also has a increase in her creatinine to 1.5 from her baseline. Based on these findings I have treated her with 1 L of lactated Ringer's as well as 2 g of magnesium sulfate and 60 mEq of oral potassium chloride. At the time of shift change this patient's magnesium and IV fluid infusion was still pending. This case was handed off to the oncoming physician who will follow-up on completion of these infusions and disposition the patient appropriately Transfer of Care <Camden Bush MD - Last Filed: 03/13/25 16:57> Vital Signs: 03/13/25 13:30 03/13/25 13:43 03/13/25 14:30 Temperature 97.8 F Temperature Source Oral Pulse Rate 98 H 73 Pulse Rate [Left] 98 H Respiratory Rate 15 Blood Pressure 121/72 Blood Pressure [Right Arm] 121/78 Blood Pressure Mean [Right Arm] 92 02 Sat by Pulse Oximetry 99 100 97 Oxygen Delivery Method Room Air 03/13/25 15:30 03/13/25 15:45 03/13/25 16:00 Temperature Temperature Source Pulse Rate 69 71 75 Pulse Rate [Left] Respiratory Rate Blood Pressure 124/55 L 125/58 L 137/71 Blood Pressure [Right Arm] Blood Pressure Mean [Right Arm] 02 Sat by Pulse Oximetry 99 99 100 Oxygen Delivery Method 03/13/25 16:15 03/13/25 16:30 Temperature Temperature Source Pulse Rate 73 73 Pulse Rate [Left] Respiratory Rate Blood Pressure 125/52 L 134/57 L Blood Pressure [Right Arm] Blood Pressure Mean [Right Arm] 02 Sat by Pulse Oximetry 99 99 Oxygen Delivery Method Lab Data Lab Results 03/13/25 13:55: WBC 7.6, RBC 4.27, Hgb 13.2, Hct 39.8, MCV 93.2, MCH 30.9, MCHC 33.2, RDW 14.6, Plt Count 352, MPV 10.4, Neut % (Auto) 80.8 H, Lymph % (Auto) 7.0 L, Toombs % (Auto) 9.9 H, Eos % (Auto) 0.9, Baso % (Auto) 1.1, Neut # (Auto) 6.1, Lymph # (Auto) 0.5 L, Toombs # (Auto) 0.8, Eos # (Auto) 0.1, Baso # (Auto) 0.1, Total Counted 100, Neutrophils % (Manual) 81 H, Lymphocytes % (Manual) 8 L, Monocytes % (Manual) 9, Eosinophils % (Manual) 1, Basophils % (Manual) 1.0, Platelet Estimate Normal, RBC Morphology Normal, Sodium 139, Potassium 3.0 L, Chloride 110 H, Carbon Dioxide 22, Anion Gap 10.0, BUN 33 H, Creatinine 1.50 H, Estimated Creat Clear 21, Estimated GFR 33 L, Est GFR ( Amer) 40 L, Glucose 111 H, Calcium 9.3, Magnesium 1.5 L, Total Bilirubin 0.4, AST 27, ALT 13, Alkaline Phosphatase 112, Total Protein 6.7, Albumin 4.0, Globulin 2.7, Albumin/Globulin Ratio 1.5 Orders (Tests/Meds): ED MEDICATIONS Discontinued Medications Generic Name Dose Route Start Last Admin Trade Name Freq PRN Reason Stop Dose Admin Magnesium Sulfate 2 gm in 50 mls @ 50 mls/hr 03/13/25 14:51 03/13/25 16:31 Magnesium Sulfate 2gm/50ml Premix IV 03/13/25 15:50 Infused ONCE ONE Infusion Lactated Ringer's 1,000 mls @ 999 mls/hr 03/13/25 14:51 03/13/25 16:30 Lactated Ringer's 1000 Ml Bag IV 03/13/25 15:51 Infused .Q1H1M ONE Infusion Potassium Chloride 60 meq 03/13/25 14:51 03/13/25 14:58 Potassium Chloride 20meq Tab PO 03/13/25 14:52 60 meq ONCE ONE Administration ORDERS Category Date Time Status Complete Blood Count Auto Diff Stat Lab 03/13/25 13:55 Completed Comprehensive Metabolic Panel Stat Lab 03/13/25 13:55 Completed Diarrhea 23 Panel, PCR Stat Lab 03/13/25 14:14 Ordered MAG [Magnesium] Stat Lab 03/13/25 13:55 Completed Medical Decision Narrative: In summary, this is an 84-year-old female patient who is presenting to the emergency department today for evaluation of suspected hypokalemia in the setting of diarrhea which she believes is related to her Crohn's disease. Comorbidities include past medical history of Crohn's as well as recurrent hypokalemia and hypertension. On initial evaluation of the patient they were resting comfortably in no acute distress and nontoxic in appearance. They are hemodynamically stable, saturating well room air, and are neurologically intact. On physical examination she is appropriately alert and oriented with a GCS of 15. Heart and lungs are clear to auscultation bilaterally. Abdomen is completely benign with no tenderness in all 4 quadrants. Her mucous membranes do appear dry raising concern for dehydration. Differential diagnosis includes dehydration, acute kidney injury, hypokalemia, hypomagnesemia, among others. We will also try to obtain a stool sample from the patient to run a diarrhea panel to ensure that she is not experiencing infectious diarrhea. Initial interventions included hematologic labs as well as a diarrhea panel. Labs were personally interpreted by me and demonstrate hypokalemia as well as hypomagnesemia. The patient has no leukocytosis. No significant anemia. She also has a increase in her creatinine to 1.5 from her baseline. Based on these findings I have treated her with 1 L of lactated Ringer's as well as 2 g of magnesium sulfate and 60 mEq of oral potassium chloride. At the time of shift change this patient's magnesium and IV fluid infusion was still pending. This case was handed off to the oncoming physician who will follow-up on completion of these infusions and disposition the patient appropriately Transfer of Care Camden Bush MD Assumed care of this patient with plan to replace patient's electrolytes, including potassium, magnesium as well as a liter of lactated Ringer's. On reassessment, patient remains stable condition. Her fluids, magnesium and potassium supplementation have been completed. She states that she is followed by Dr. Vasquez with gastroenterology in [place] and has an appointment next month. I encouraged her to talk with Dr. Vasquez early next week to ensure they are okay with her follow-up as is and the possibility of starting her on magnesium supplementation. All questions were answered. She demonstrated understanding and was in agreement this plan. She was then discharged from the emergency department in stable condition. Critical Care <Alireza Tamez DO - Last Filed: 03/13/25 15:56> Critical Care Time Critical Care Time: No
[2025-03-13 14:05] LABS: Albumin Level 4.0 g/dl (3.5-5.0); Chloride 110 mmol/L (98-107); Sodium 139 mmol/L (136-145)
[2025-03-13 14:07] LABS: Alanine Aminotransferase 13 U/L (12-78); Alkaline Phosphatase 112 U/L (38-126); Anion Gap 10.0 mEq/L (5-15); Aspartate Amino Transferase 27 U/L (14-36); Bilirubin,Total 0.4 mg/dl (0.2-1.3); Blood Urea Nitrogen 33 mg/dl (7-17); Carbon Dioxide 22 mmol/L (22.0-30.0); Creatinine Clearance Estimated 21 mL/min (50-200); Creatinine,Serum 1.50 mg/dl (0.52-1.04); Estimated Glomerular Filt Rate 33 ml/min (>60); GFR (African American) 40 ML/MIN (>60); Hematocrit 39.8 % (37.0-47.0); Hemoglobin 13.2 g/dL (12.2-16.2); Immature Granulocytes % 0.3 %; Mean Corpuscular HGB Conc 33.2 g/dL (31.8-35.4); Mean Corpuscular Hemoglobin 30.9 pg (27.0-31.2); Mean Corpuscular Volume 93.2 fl (81-99); Nucleated Red Blood Cells % 0 %; Platelet Count 352 K/mm3 (142-424); Red Blood Count 4.27 M/mm3 (4.20-5.40); Red Cell Distribution Width-SD 50.2 fL; White Blood Count 7.6 K/mm3 (4.8-10.8)
[2025-03-13 14:08] LABS: Albumin/Globulin Ratio 1.5 (1.1-1.8); Calcium 9.3 mg/dl (8.4-10.2); Globulin 2.7 g/dL (1.3-3.2); Glucose 111 mg/dl (74-100); Magnesium 1.5 mg/dl (1.6-2.3); Total Protein,Serum 6.7 g/dl (6.3-8.2)
[2025-03-13 14:40] LABS: RBC Morphology Normal; Total Cells Counted 100
[2025-03-13 14:47] LABS: Potassium 3.0 mmoL/L (3.5-5.1)
[2025-03-13] MEDS: POTASSIUM CHLORIDE 20MEQ TAB 60 MEQ PO (14:58)
[2025-03-13] MEDS: LACTATED RINGERS 1000ML 1,000 ML 999 ML IV (14:58)
[2025-03-13] MEDS: MAGNESIUM SULFATE IN WATER 2 GM/50 ML PIGGYBACK IV (14:58)
== END 2025-03-13 17:30 | disposition home or self-care (01) ==
PROVIDERS: Student in an Organized Health Care Education/Training Program; Emergency Provider Student in an Organized Health Care Education/Training Program; PCP Family Medicine
DX: M54.9 Dorsalgia, unspecified (principal); R19.7 Diarrhea, unspecified; E83.42 Hypomagnesemia; E87.6 Hypokalemia; I10 Essential (primary) hypertension
CPT/HCPCS: 80053; 83735; 85007; 85025; 85027; 96361; 96365; 99284; J3475; J7120

== ENCOUNTER 2025-03-14 09:13 | Outpatient (CLI) | payer MEDICARE, SELFPAY ==
--- OUTSIDE RECORDS SUMMARY | 2024-12-29 09:50 | XMS_ITS ---
Author Organization [facility] Address [address] [place] [phone] Care Team Providers Care Automation Manager Name Role Phone Unique Pendleton Primary Care Provider Allergies Allergen (clinical drug ingredient) Drug/Non Drug Allergy documented on EMR Reaction Allergy Type Onset Date Status Information temporarily unavailable RU TUSS DE (uncoded) Unknown Allergy Active Information temporarily unavailable Bactrim DS itching Drug Allergy Active Information temporarily unavailable Bystolic weakness Drug Allergy Active Information temporarily unavailable Cefuroxime Axetil diarrhea Drug Allergy Active Information temporarily unavailable Celestone Soluspan Unknown Drug Allergy Active Information temporarily unavailable cloNIDine hallucinations Drug Allergy Active Information temporarily unavailable Erythromycin Unknown Drug Allergy Active Information temporarily unavailable Clindamycin diarrhea Drug Allergy Active Information temporarily unavailable Penicillin Unknown Drug Allergy Active Information temporarily unavailable Streptomycin Unknown Drug Allergy Active Information temporarily unavailable Tetracycline Unknown Drug Allergy Active Results Component Value Reference Range Notes CBC [...] Interpretation:464 Performing Lab: Notes/Report: Test performed by [facility] [address] , [address], [place] [address] Sawyer Hyman MD, Superintendent Track CLIA: [id number] Vitamin B12 933 534-7477 pg/mL P-Comprehensive Metabolic Pa lyndsey (CMP) Reviewed date:01/03/2025 10:10:06 PM Interpretation:GFR 39 Performing Lab: Notes/Report: Test performed by [facility] [address] , [address], [place] [address] Sawyer Hyman MD, Superintendent Track CLIA: [id number] Sodium 143 135-145 mmol/L Potassium 4.0 3.5-5.3 [...] Interpretation:1.4 Performing Lab: Notes/Report: Test performed by [facility] [address] [place] [address] , [address], [place] [id number] Sawyer Hyman MD, Superintendent Track CLIA: [id number] Magnesium 1.4 1.6-2.4 mg/dL P-TSH Reviewed date:01/03/2025 10:10:06 PM Interpretation:3.24 Performing Lab: Notes/Report: Test performed by [facility] [address] [place] [address] , [address], [place] [address] Sawyer Hyman MD, Superintendent Track CLIA: [id number] TSH 3.24 0.43-5.25 mU/L REASON FOR VISIT [...] Problem Status W/U Status Risk Notes Problem Information temporarily unavailable Paresthesia (R20.2) Active confirmed Problem Information temporarily unavailable Iron deficiency anemia (D50.9) Active confirmed Vital Signs Blood pressure systolic 164 mm Hg 12/30/19 25 Blood pressure diastolic 68 mm Hg 025 Heart Rate 82 /min 12/29/2024 Height 64 in 12/29/2024 Weight 122 lbs 12/29/2024 BMI 20.94 kg/m2 12/29/2024 Encounters Encounter Location Date Provider Diagnosis [facility] [address] [place], [place] [phone] 12/29/2024 Unique Pendleton Adult general medica l [...] Appt Details Follow Up: 6 Months, Reason: Progress Notes * CHRIS MALONE:1940 (84 yo F)Acc No.nb bmDOS:12/29/2024 Annual Wellness Visit Patient: PARVIN CHAIREZ Account Number:nb bm Provider: Unique Pendleton M.D. :1940 A ge:84 Y S ex:Female Date:12/29/2024 Address:[address], [id number] Subjective: * Chief Complaints: * 1 . [...] low magnesium diagnosed by her consultants in [place]. She tried taking a magnesium supplement but [...] * Hospitalization/Major Diagno stic Procedure: H ypertension- [facility] ER 12/28/2017. * Family History: F ather: , diagnosed with Hypertension, Stroke. M other: . C hermann: pt does not have children. 3 sister(s) [...] rohn disease - K50.90 8 . B [place] 20.0-20.9, adult - Z68.20 9 . O [...] PM)?464* Value Reference Range V itamin B12 879 752-9700 - pg/mL * Unique Pendleton 01/03/2025 10:09:44 [...] NON-USER, 3017F COLORECTAL [place] SCREEN DOC REV, 02125 CBC WITH AUTO DIFF, G8510 NEG SCR [...] * Images: Billing Information: * Visit Code: 45352 Office Visit, Est Pt., Level 3. Modifiers: 25 * Procedure Codes: G0439 ANNUAL WELLNESS VST; PPS SUBSQT VST. G2211 Complex e/m visit add on. 1090F PRES/ABSN URINE INCON ASSESS. 3288F FALL RISK ASSESSMENT DOCD. 1170F FXNL STATUS ASSESSED. 1159F MED LIST DOCD IN RCRD. 1003F LEVEL OF ACTIVITY ASSESS. 1036F TOBACCO NON-USER. 3017F COLORECTAL CA SCREEN DOC REV. 85204 CBC WITH AUTO DIFF. G8510 NEG SCR Depression PT NOT ELIG F/U/PLN DOC. G8420 BMI<30 AND >=22 CALC & DOCU. G8950 PREHTN/HTN BP DOC INDCD F/U DOC. G8753 MOST RECENT SYSTOLIC BP >= 140MM HG. G8754 MOST RECENT DIASTOLIC BP < 90MM HG. * Electronic signature of Unique Pendleton MD on 03/14/2025 at 09:23 AM EDT Sign off status: Pending * Provider: Unique Pendleton M.D. Date: 0 12/29/2024 Generated for Osmar gilbert/Nicolle/Crystalitting on: 0 03/14/2025 09:23 AM EDT History and Physical Notes * HPI (History of Present Illness) Category Sub-Category Detail Notes Category Not es Cardiology Short of Breath She has a hi story of low magnesium diagnosed by her consultants in [place]. She tried taking a magnesium supplement but it caused diarrhea and aggravated her Crohn's disease. She has not had follow-up blood work. Chest Pain Palpitations Leg Edema mild ankle swelling HPI Patient is here today for a [facility] 6 month check up and a Medicare [...]
--- OUTSIDE RECORDS SUMMARY | 2025-01-11 09:20 | XMS_ITS ---
[facility] Organization [facility] [address] [facility] [address] [facility] [address] [place] [phone] Care Team Providers Care Hide And Skin Classer Name Role Phone Unique Pendleton Primary Care Provider Daniel Keys [phone] REASON FOR VISIT B 12 INJECTION Encounters Encounter Location Date Provider Diagnosis [facility] [address] [facility] [address] [place] [phone] 01/11/2025 Daniel Keys Vitamin B 12 deficie ncy E53.8 Assessments Encounter Date Diagnosis (ICD Code) Assessment Notes Treatment Notes Treatment Clinical Notes Section Notes 01/11/2025 Vitamin B 12 deficiency (ICD-10 - E53.8) Plan Of Treatment No Information Medications Administered Medication Instructions Date of Administration Dosage Notes B-12 01/11/2025 1 mL Progress Notes * FAISALNATHANIELCHERYLDOB:1940 (84 yo F)Acc No.nb bmDOS:01/11/2025 Patient: PARVIN CHAIREZ Account Number:nb bm Provider: Dominik Keys M.D. :1940 A ge:84 Y S ex:Female Date:01/11/2025 Address[address], [place] Pcp:Unique Pendleton Subjective: * Chief Complaints: * 1 . B 12 INJECTION. * Medical History: Objective: * Vitals: Assessment: * Assessment: 1. V itamin B 12 deficiency - E53.8 (Primary) Plan: * Treatment: * Therapeutic Injections: B-12 : 1 mL (Route: Intramuscular) given by JAMAR Willoughby on left gluteus (Vitamin B 12 deficiency) * Procedure Codes: J 3420 B-12, 57340 ADMINISTRATION OF INJECTION * Images: Billing Information: * Visit Code: * Procedure Codes: J3420 B-12. 67096 ADMINISTRATION OF INJECTION. * Electronic signature of Milena Keys MD on 03/14/2025 at 09:21 AM EDT Sign off status: Pending * Provider: Dominik Keys M.D. Date: 01/11/2025 Generated for Osmar gilbert/Nicolle/Arthur on: 03/14/2025 09:21 AM EDT
--- OUTSIDE RECORDS SUMMARY | 2025-01-19 11:15 | XMS_ITS ---
Author Organization [facility] Address [address] [place] [id number] Care Team Providers Care Corporate Vp Advertising & Online Name Role Phone Unique Pendleton Primary Care Provider [phone] Allergies Allergen (clinical drug ingredient) Drug/Non Drug [...] Active Results Component Value Reference Range Notes X [...] day 06/23/2024 Active Diclofenac Active Vital Signs Blood pressure systolic 133 mm Hg 01/20/20 25 Blood pressure diastolic 74 mm Hg 025 Heart Rate 83 /min 01/19/2025 Height 64 in 01/19/2025 Weight 125.2 lbs 01/19/2025 BMI 21.49 kg/m2 01/19/2025 Encounters Encounter Location Date Provider Diagnosis [facility] [facility] [address] [place] [phone] 01/19/2025 R Mono Pendleton Acute left ankle [...] ge:84 Y S ex:Female Date:01/19/2025 Address:[id number] Subjective: * Chief Complaints: * 1 . [...] * Hospitalization/Major Diagno stic Procedure: H ypertension- [facility] ER 12/28/2017. * Family History: F [...] czema - L30.9 ? 3 . B [place] 21.0-21.9, adult - Z68.21 Plan: * Treatment: Notes: Recommend compression socks??2.?Eczema? Start Mometasone Furoate Cream, 0.1 %, 1 application, Externally, Once a day, 15 gm.?? * Procedure Codes: G 2211 Complex e/m visit add on, G5420 BMI<30 AND >=22 CALC & DOCU, G9594 BP SCR PRFRM RCMDD DEFIND SCR INTVL, G8456 MOST RECENT SYSTOLIC BP < 140MM HG, G8754 MOST RECENT DIASTOLIC BP < 90MM HG, 1036F TOBACCO NON-USER * Follow Up: v ia phone to report test results * Images: Billing Information: * Visit Code: 49901 Office Visit, Est Pt., Level 3. * [...] 01/19/2025 Generated for Osmar gilbert/Nicolle/Crystalitting on: 0 03/14/2025 09:23 AM EDT History and Physical Notes * Examination Category Sub-Category Detail Notes Category Not es General Examination Extremities: There is mil d to moderate swelling and tenderness over the left distal fibula and lateral malleolus. Range of motion ankle is nearly full with no pain.
--- OUTSIDE RECORDS SUMMARY | 2025-01-28 13:45 | XMS_ITS | Encounter Summary ---
Author Organization [facility] Address [address] [place] [address] Care Team Providers Care Medical Office Assistant Name Role Phone Sal Mar MD Unavailable [phone] Edson Pendleton MD Primary Care Provider [phone] Reason for Visit * Reason Comments Follow-up Encounter Details Date Type Department Care Team (Late st Contact Info) Description 01/28/2025 1:45 PM EDT Office Visit [facility] at [facility] [address] [place] [address] Sal Mar MD [address] [address] Iron deficiency 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 blood loss (Primary Dx); Crohn's disease of colon with complication (CMS/HCC); Stage 3 chronic kidney disease, unspecified whether stage 3a or 3b CKD (CMS/HCC) Social History Tobacco Use Types Packs/Day Years Used Date Smoking Tobacco: Former Cigarettes Q uit: 1976 Smokeless Tobacco: Never Comments Unknown Sex and Gender Information Value Date Recorded Sex Assigned at Female 06/10/2023 9:48 PM EST Legal Sex Female 7:40 PM EDT Gender Identity Female 06/10/2023 9:48 PM EST Sexual Orientation Straight 06/10/2023 9: 48 PM EST documented as of this encounter Last Filed Vital Signs Vital Sign Reading Time Taken Comments Blood Pressure 177/75 01/28/2025 1:49 PM EDT Pulse 80 01/28/2025 1:49 PM EDT Temperature 36.6 C (97.8 F) 01/28/2025 1:49 PM EDT Respiratory Rate - - Oxygen Saturation 98% 01/28/2025 1:49 PM EDT Inhaled Oxygen Concentration - - Weight 56.2 kg (123 lb 14.4 oz) 01/28/2025 1:49 PM EDT Height 160 cm (5' 3 ) 01/28/2025 1:49 PM EDT Body Mass Index 21.95 01/28/2025 1:49 PM EDT documented in this encounter Miscellaneous Notes * Progress Notes - Sal Mar MD - 01/28/2025 1:45 PM EDT Division of Hematology and Oncology Hematology/Oncology Follow Up Patient ID: Alejandra Ramos is a 84 y.o. female. DIAGNOSIS: Diagnosis Plan 1. Iron deficiency 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 blood loss 2. Crohn's disease of colon with complication (CMS/HCC) 3. Stage 3 chronic kidney disease, unspecified whether stage 3a or 3b CKD (CMS/HCC) History of present illness: Patient is an 84-year-old female originally seen by me since July of 2019. She has a longstanding history of many years of Crohn's disease and has GI absorptive issues. She was followed by Dr. Chandrakant Vasquez in the GI clinic and they checked her labs fairly regularly. We have in the past attempted oral iron that she really could not get any benefit from an we have had to give her parenteral iron almost about once a year for the last 4 years. Patient has had recent laboratory studies done on 10/11/2023. Her hemoglobin is now down to 9.7 with low iron saturation of less than 20%, a ferritin of 10 and a concomitant stage 3 chronic kidney disease and creatinine of 1.5. She notes that she was having overall symptoms that she has had previously including PICA and some fatigue and tiredness but most importantly that she has been ice chewingfairly significantly in the last month or so. 01/28/2025: Patient returns this year recently had complaints of low blood counts and we have repeat CBC CMP iron sats and ferritin. Her hemoglobin has dropped down to 9.4 with low iron sats and low ferritin given her history of chronic kidney disease again we have we would recommend she would be re-treated with parenteral iron. He does have a prior history of reaction to iron dextran and I believe and we would typically have given her some Benadryl and some steroids prior to each of her doses of Feraheme that we had given in the past. Certainly she may have be required to do Venofer in 3 doses instead certainly has had the Feraheme and tolerated it quite well in the past also her coyle s a lot of underlying medical issues that makes it difficult for her to come here from home. We will go ahead and put in orders for IV iron but we would not specifically have follow up for hergiven her difficulty in coming all the way the [place] from [place]. Current Outpatient Medications: benazepril-hydroCHLOROthiazide (Lotensin HCT) 20-12.5 MG tablet, Take 1 tablet by mouth Daily., Disp: , Rfl: fenofibrate (Tricor) 48 MG tablet, , Disp: , Rfl: potassium chloride CR (KLOR-CON) 20 MEQ ER tablet, 2 (two) times a day., Disp: , Rfl: Xanax 0.5 MG tablet, PRN daily, Disp: , Rfl: acetaminophen (Tylenol) 325 MG tablet, if needed., Disp: , Rfl: amLODIPine (Norvasc) 10 MG tablet, Take 1 tablet by mouth daily., Disp: , Rfl: amLODIPine-benazepril (Lotrel) 10-20 MG capsule, Take 1 capsule by mouth Daily., Disp: , Rfl: fenofibrate (Tricor) 145 MG tablet, 1 (one) time each day. (Patient not taking: Reported on 11/05/2023), Disp: , Rfl: Imuran 50 MG tablet, 1 (one) time each day., Disp: , Rfl: Multiple Vitamins-Minerals (PRESERVISION AREDS PO), , Disp: , Rfl: Review of Systems - Oncology REVIEW OF SYSTEMS: General: No weight loss or weight gain. HEENT: No headache, no nosebleeds. Respiratory: No cough, hemoptysis, shortness of breath. Cardiovascular: No chest pain, orthopnea. GI: No nausea, vomiting, diarrhea, constipation. Neurologic: No motor or sensory complaints, no seizures. The remainder of review of systems is negative. Positive for progressive fatigue and ice chewing. Physical Exam: Vital Signs for this encounter: BSA: 1.58 meters squared Visit Vitals BP (!) 177/75 Pulse 80 Temp 36.6 ??C (97.8 ??F) (Temporal) Ht 1.6 m (5' 3 ) Wt 56.2 kg (123 lb 14.4 oz) SpO2 98% BMI 21.95 kg/m?? Smoking Status Former BSA 1.58 m?? Physical Exam Constitutional: Appearance: Normal appearance. She is well-developed. HENT: Head: Normocephalic and atraumatic. Eyes: Pupils: Pupils are equal, round, and reactive to light. Cardiovascular: Heart sounds: Normal heart sounds. Pulmonary: Effort: Pulmonary effort is normal. No respiratory distress. Breath sounds: Wheezing present. Musculoskeletal: Cervical back: Normal range of motion. Neurological: General: No focal deficit present. Mental Status: She is alert. Mental status is at baseline. Psychiatric: Mood and Affect: Mood normal. Behavior: Behavior normal. LAB Results: Transcribe Orders on 01/22/2025 Component Date Value Ref Range Status External WBC 01/25/2025 4.8 3.8 - 10.8 10*3/uL Final External Red Blood Cell (RBC) 01/25/2025 3.13 (L) 3.80 - 5.20 10*6/uL Final External Hemoglobin 01/25/2025 9.4 (L) 12.0 - 16.0 g/dL Final External Hematocrit 01/25/2025 27.9 (L) 35.0 - 47.0 % Final External MCV 01/25/2025 89 80 - 100 fL Final External MCH 01/25/2025 30 26 - 35 pg Final External MCHC 01/25/2025 34 32 - 36 g/dL Final External RDW 01/25/2025 14.2 11.0 - 15.0 % Final External Mean Platelet Volume 01/25/2025 7.6 6.2 - 10.5 fL Final External Platelet Count (Plt) 01/25/2025 328 150 - 400 10*3/uL Final External Neutrophil# 01/25/2025 3.5 1.6 - 8.4 10*3/uL Final External Lymphocyte# 01/25/2025 0.6 0.4 - 5.1 10*3/uL Final External Absolute Monocyte (Abs Mo* 01/25/2025 0.4 0.0 - 1.2 10*3/uL Final External Eosinophils# 01/25/2025 0.1 0.0 - 0.8 10*3/uL Final External Baso# 01/25/2025 0.1 0.0 - 0.3 10*3/uL Final External Neutrophils % 01/25/2025 73.6 42.0 - 78.0 % Final External Lymphocyte % 01/25/2025 13.2 11.0 - 47.0 % Final External Monocyte % 01/25/2025 9.2 0.0 - 11.0 % Final External Eosinophil% 01/25/2025 2.5 0.0 - 7.0 % Final External Basophil % 01/25/2025 1.5 0.0 - 3.0 % Final External Nucleated RBC%-Auto 01/25/2025 0.0 0.0 - 0.9 % Final External Nucleated RBC Absolute 01/25/2025 0.00 Not Estab. 10*3/uL Final External Glucose 01/25/2025 104 (H) 74 - 100 mg/dL Final External BUN 01/25/2025 21 (H) 6 - 20 mg/dL Final External Creatinine Blood 01/25/2025 1.47 (H) 0.50 - 0.95 mg/dL Final External BUN/Creat Ratio 01/25/2025 14 10 - 20 (calc) Final External Sodium 01/25/2025 142 136 - 145 mmol/L Final External Potassium 01/25/2025 4.2 3.4 - 5.0 mmol/L Final External Chloride 01/25/2025 107 98 - 107 mmol/L Final External Carbon Dioxide (CO2) 01/25/2025 23 22 - 31 mmol/L Final External Anion Gap (AG) 01/25/2025 12 7 - 25 (calc) Final External Calcium 01/25/2025 8.4 (L) 8.6 - 10.2 mg/dL Final External Total Protein 01/25/2025 6.3 (L) 6.4 - 8.3 g/dL Final External Albumin 01/25/2025 3.7 3.5 - 5.2 g/dL Final External Globulin 01/25/2025 2.6 1.5 - 4.5 Final External Albumin/Globulin Ratio 01/25/2025 1.4 1.1 - 2.5 (calc) Final External Bilirubin Total 01/25/2025 <0.2 0.1 - 1.2 mg/dL Final External Alkaline Phosphatase 01/25/2025 72 30 - 121 U/L Final External AST (SGOT) 01/25/2025 17 0 - 32 U/L Final External ALT (SGPT) 01/25/2025 10 0 - 33 U/L Final External Estimated GFR 01/25/2025 34 (A) >=60 Final Comment: NOTE New calculation for GFR (CKD-EPI 2020) is formulated without race adjustment factors at the recommendation of the National Kidney Foundation and [place] Society of Nephrology. This calculation has not been validated in women. For pediatric patients refer to https://www.kidney.org/professionals/KDOQI/gfr_calculatorPed External Iron 01/25/2025 45 37 - 145 ug/dL Final External Total Iron Binding Capaci* 01/25/2025 498 (H) 250 - 450 ug/dL (calc) Final External Unsaturated Iron Binding * 01/25/2025 453 (H) 112 - 347 ug/dL Final External Iron-Saturation% 01/25/2025 9 (L) 15 - 50 % (calc) Final External Ferritin 01/25/2025 13 13 - 157 ng/mL Final ASSESSMENT/PLAN: 1. This is an 83-year-old female with longstanding history of Crohn's disease and multiple surgeries in the past. She has a absorptive issues for iron has been unable to take oral iron for any significant benefit in the past and we have given her parenteral iron almost on a yearly basis since around 2019. She also has a history of stage 3 chronic kidney disease 2. Recent labs show hemoglobin of 9 point 4 low iron sats low ferritin again consistent with iron-deficiency anemia. Also she is having a lot of symptoms including ice chewing etc. As she typically has. She is very good at kind of noticing when she had kind of dropping below her typical normals. Aside from that though that has advanced age she is still really active. 3. We will go ahead and arrange her to get parenteral iron. We would not have her specifically comeback and follow up with me as she had generally gets her blood counts through her primary team as well as Gastroenterology. 4. She has really had lot of stress lately as her has a lot of ongoing medical issues in his older than her. Follow up if symptoms worsen or fail to improve. Sal Mar MD documented in this encounter Plan of Treatment Upcoming Encounters Date Type Department Care Team (Late st Contact Info) Description 03/19/2025 8:00 AM EDT Office Visit Medical Office Building [facility] [address], [address] [place] [address] Pedro Abdul, PA [address] [place] [address] documented as of this encounter Visit Diagnoses Diagnosis Iron deficiency 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 blood loss- Primary Iron deficiency anemia secondary to blood loss (chronic) Crohn's disease of colon with complication (CMS/HCC) Stage 3 chronic kidney disease, unspecified whether stage 3a or 3b CKD (CMS/HCC) Lumbar pain- Primary Lumbago documented in this encounter Additional Health Concerns Assessment Noted Time A fall risk assessment has been complete d for the patient 11/05/2023 1:17 PM EDT documented as of this encounter Care Teams Medical Office Assistant Relationship Specialty Start Date End Date Edson Pendleton MD [address] [place] [address] PCP - General 10/21/23 Sal Mar MD [address] [place] [address] Medical Oncologist Hematology and Oncology 10/16/23 documented as of this encounter
--- OUTSIDE RECORDS SUMMARY | 2025-02-04 14:00 | XMS_ITS | Encounter Summary ---
Author Organization [facility] Address [address] [place] [address] Care Team Providers Care Laborer Concrete Plant Name Role Phone Sal Mar MD Unavailable [phone] Edson Pendleton MD Primary Care Provider [phone] Reason for Visit * Episode Based Medications (Routine) - Authorized Specialty Diagnoses / Procedures Referred By Contac t Referred To Contact Diagnoses Stage 3 chronic kidney disease, unspecified whether stage 3a or 3b CKD (CMS/HCC) Crohn's disease of colon with complication (CMS/HCC) Iron deficiency 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 blood loss Sal Mar MD [address] [place] [phone] Phone: tel: fax: Sal Mar MD [address] [place] [phone] Phone: tel: fax: Referral ID Status Reason Start Date Expiration Date V isits Requested Visits Authorized [id number] Authorized 02/04/2025 08/06/2026 1 2 Encounter Details Date Type Department Care Team (Late st Contact Info) Description 02/04/2025 2:00 PM EDT Infusion [facility] at [facility] [address] [place] [address] Iron deficiency 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 blood loss (Primary Dx); Stage 3 chronic kidney disease, unspecified whether stage 3a or 3b CKD ([facility]/HCC); Crohn's disease of colon with complication ([facility]) Social History Tobacco Use Types Packs/Day Years [...] Upcoming Encounters Date Type Department Care Team ([facility] st Contact Info) Description 03/19/2025 8:00 AM EDT Office Visit Medical Office Building Surgery Spine & Joint [address] [facility], [address] [place] [address] Pedro Abdul, PA [address] [facility] [address] [place] [address] documented as of this encounter [...] 10 mL, Intravenous, As needed, Starting on Mienrva 02/04/25 at 1443, Until Minerva 02/04/25 at [...] documented as of this encounter Care Teams Laborer Concrete Plant Relationship Specialty Start Date End Date Edson Pendleton MD [address] [place] [address] PCP - General 10/21/23 Sal Mar MD [address] [place] [address] Medical Oncologist Hematology and Oncology 10/16/23 documented as of this encounter
--- OUTSIDE RECORDS SUMMARY | 2025-02-16 14:00 | XMS_ITS | Encounter Summary ---
Author Organization [facility] Address [address] [place] [address] Care Team Providers Care Plant Anatomist Name Role Phone Sal Mar MD Unavailable [phone] Edson Pendleton MD Primary Care Provider [phone] Reason for Visit * Reason Comments OP Infusion * Episode Based Medications (Routine) - Authorized Specialty Diagnoses / Procedures Referred By Contac t Referred To Contact Diagnoses Stage 3 chronic kidney disease, unspecified whether stage 3a or 3b CKD (CMS/HCC) Crohn's disease of colon with complication (CMS/HCC) Iron deficiency 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 blood loss Sal Mar MD [address] [place] [phone] Phone: tel: fax: Sal Mar MD [address] [place] [phone] Phone: tel: fax: Referral ID Status Reason Start Date Expiration Date V isits Requested Visits Authorized [id number] Authorized 02/04/2025 08/06/2026 1 2 Encounter Details Date Type Department Care Team (Late st Contact Info) Description 02/16/2025 2:00 PM EDT Infusion [facility] at [facility] [address] [place] [address] Iron deficiency anemia due to [...] Upcoming Encounters Date Type Department Care Team ([facility] st Contact Info) Description 03/19/2025 8:00 AM EDT Office Visit Medical Office Building Surgery Spine & Joint [address] [facility], [address] [place] [address] Pedro Abdul PA [address] [facility] [address] [place] [address] documented as of this encounter [...] documented as of this encounter Care Teams Plant Anatomist Relationship Specialty Start Date End Date Edson Pendleton MD [address] [facility] [address] [place] [address] PCP - General 10/21/23 Sal Mar MD [address] [place] [address] Medical Oncologist Hematology and Oncology 10/16/23 documented as of this encounter
--- OUTSIDE RECORDS SUMMARY | 2025-02-25 09:45 | XMS_ITS ---
Author Organization [facility] Address [address] [place] [phone] Care Team Providers Care Turkey Picker Name Role Phone Unique Pendleton Primary Care Provider REASON FOR VISIT back pain Encounters Encounter Location Date Provider Diagnosis [facility] [address] [place] [phone] 02/25/2025 Unique Pendleton Plan Of Treatment No Information Progress Notes * MERNA MALONEOLYDOB:1940 (84 yo F)Acc No.nb bmDOS:02/25/2025 Progress Notes Patient: PARVIN CHAIREZ Account Number:nb bm Provider: Unique Pendleton M.D. :1940 A ge:84 Y S ex:Female Date:02/25/2025 Address[address], [place] Subjective: * Chief Complaints: * 1 . Back pain. * Medical History: Objective: * Vitals: Assessment: Plan: * Treatment: * Images: Billing Information: * Visit Code: * Procedure Codes: * Electronic signature of Unique Pendleton MD on 03/14/2025 at 09:22 AM EDT Sign off status: Pending * Provider: Unique Pendleton M.D. Date: 02/25/2025 Generated for Printi ng/Faxing/eTransmitting on: 03/14/2025 09:22 AM EDT
--- OUTSIDE RECORDS SUMMARY | 2025-03-04 05:45 | XMS_ITS ---
[facility] [address] [facility] [address] [place] [id number] Care Team Providers Care Inspector And Unloader Name Role Phone Unique Pendleton Primary Care Provider [phone] Allergies Allergen (clinical drug ingredient) Drug/Non Drug [...] temporarily unavailable Tetracycline Unknown Drug Allergy Active REASON FOR VISIT back spasms, possible dehydration Encounters Encounter Location Date Provider Diagnosis [facility] [address] [facility] [address] [place] [id number] 03/04/2025 Unique Pendleton Plan Of Treatment No Information Progress Notes * PARVIN MALONEDOB:1940 (84 yo F)Acc No.nb bmDOS:03/04/2025 Progress Notes Patient: PARVIN CHAIREZ Account Number:nb bm Provider: Unique Pendleton M.D. :1940 A ge:84 Y S ex:Female Date:03/04/2025 Address:[address], [place] Subjective: * Chief Complaints: * 1 . [...] * Hospitalization/Major Diagno stic Procedure: H ypertension- [facility] ER 12/28/2017. * Family History: F ather: [...] Pendleton M.D. Date: 03/04/2025 Generated for Osmar gilbert/Nicolle/Crystalitting on: 03/14/2025 09:22 AM EDT
--- OUTSIDE RECORDS SUMMARY | 2025-03-14 09:20 | XMS_ITS | Encounter Summary ---
Author Organization [facility] Address [address] [place] [address] Care Team Providers Care Networker Name Role Phone Sal Mar MD Unavailable [phone] Edson Pendleton MD Primary Care Provider [phone] Encounter Details Date Type Department Care Team (Late Contact Info) Description 01/28/[address] [facility] at [address] [id number] Carrie Chavira, PharmD Inpatient Pharmacy [address] [place] [id number] Social History Tobacco Use Types Packs/Day Years [...] [facility] [address] [facility] [facility], [address] [place] [address] Pedro Abdul PA [address] [place] [address] documented as of this encounter Visit Diagnoses Not on filedocumented in this encounter Additional Health Concerns Assessment Noted Time A fall risk assessment has been complete d for the patient 11/05/2023 1:17 PM EDT documented as of this encounter Care Teams Networker Relationship Specialty Start Date End Date Edson Pendleton MD [address] [place] [id number] PCP - General 10/21/23 Sal Mar MD [address] [place] [address] Medical Oncologist Hematology and Oncology 10/16/23 documented as of this encounter
--- OUTSIDE RECORDS SUMMARY | 2025-03-14 09:20 | XMS_ITS | Encounter Summary ---
Author Organization [facility] Address [address] [place] [address] Care Team Providers Care Drywall Boardhanger Name Role Phone System, Provider Not In MD Primary Care Provider Unavailable Chanel Mar MD Unavailable [phone] Edson Pendleton MD Primary Care Provider [phone] Encounter Details Date Type Department Care Team (Late Contact Info) Description 01/08/2022 Orders Only [facility] @ [facility] [address] [place] [address] Fidel Vasquez MD [address], [place] [id number] Social History Tobacco Use Types Packs/Day Years [...] [facility] [address], [address] [place] [address] Pedro Abdul PA [address] [place] [address] documented as of this encounter Procedures Procedure Name Priority Date/Time Associated Diagnosis Comments COMPREHENSIVE GI PANEL BY PCR Routine 01/08/2022 12:38 PM EDT documented in this encounter Results * Comprehensive GI Panel by PCR (01/08/2022 12:38 PM EDT) EXTERNAL GI PANEL SEE BELOW [facility] External Campylobacter species by PCR Negative Negative [facility] External Clostridioides (Clostridium) Difficile Toxin Negative Negative [facility] External Plesiomonas shigelloides Negative Negative [facility] EXTERNAL SALMONELLA SPP Negative Negative [facility] External Vibrio Negative Negative [facility] External Vibrio cholerae Negative Negative [facility] EXTERNAL YERSINIA SPECIES Negative Negative [facility] External Enteroaggregative E. Coli Negative Negative [facility] External Enteropathogenic E. coli Negative Negative [facility] External Enterotoxigenic E. coli LT/ST Negative Negative [facility] External Mugbg-Xudau-Rwgretin g E. coli Negative Negative [facility] External Shigella/Enteroinvas sadiq E. coli Negative Negative [facility] EXTERNAL CRYPTOSPORIDIUM SPECIES Negative Negative [facility] External Cyclospora cayetanensis Negative Negative [facility] External Entamoeba histolytica Negative Negative [facility] External Giardia lamblia Negative Negative [facility] External Adenovirus F 40/41 Negative Negative [facility] External Astrovirus Negative Negative [facility] EXTERNAL NOROVIRUS GI/GII Negative Negative [facility] External Rotavirus Negative Negative [facility] External Sapovirus Negative Negative [facility] Comment: ADDITIONAL INFORMATION This assay is performed using the FDA-cleared LEAPIN Digital KeysArray GI Panel ([employer] TEST PERFORMED AT: [facility] [address] [place] [id number] CHANEL HARRIS II, MD,PHD 01/08/2022 12:3 8 PM EDT 01/08/2022 12:45 PM EDT us Fidel Vasquez MD LAB MICROBIOLOGY - GENERAL O RDERABLES Final Result [facility] [address] [place] [address], documented in this encounter Visit Diagnoses Not on filedocumented in this encounter Care Teams Drywall Boardhanger Relationship Specialty Start Date End Date System, Provider Not In, [address] [place] [address] PCP - General Family Medicine 07/15/21 10/20/23 Edson Pendleton MD [address] [place] [address] PCP - General 10/21/23 Chanel Mar MD [address] [place] [address] Medical Oncologist Hematology and Oncology 10/16/23 documented as of this encounter
--- OUTSIDE RECORDS SUMMARY | 2025-03-14 09:20 | XMS_ITS | Encounter Summary ---
Author Organization [facility] Address [address] [place] [address] Care Team Providers Care Entry Level Web Developer Name Role Phone System, Provider Not In MD Primary Care Provider Unavailable Sal Mar MD Unavailable [phone] Edson Pendleton MD Primary Care Provider [phone] Encounter Details Date Type Department Care Team (Late Contact Info) Description 01/03/2022 Orders Only [facility] [address] [place] [address] Fidel Vasquez MD [address] [place], [place] [id number] Social History Tobacco Use Types Packs/Day Years [...] [facility] [address] [facility] [facility], [address] [place] [address] Pedro Abdul PA [address] [place] [address] documented as of this encounter Procedures Procedure Name Priority Date/Time Associated Diagnosis Comments VITAMIN B12, SERUM Routine 01/03/2022 4: 15 PM EDT documented in this encounter Results * (ABNORMAL) Vitamin B12, Serum (01/03/2022 4:15 PM EDT) External Vitamin B12 >2,000(H) 232 - 1,245 pg/mL [facility] 01/03/2022 4:15 PM EDT 01/03/2022 5:14 PM EDT us Fidel Vasquez MD LAB BLOOD ORDERABLES Final R esult [facility] [address] [place] [address], documented in this encounter Visit Diagnoses Not on filedocumented in this encounter Care Teams Entry Level Web Developer Relationship Specialty Start Date End Date System, Provider Not In, [address] [place] [address] PCP - General Family Medicine 07/15/21 10/20/23 Edson Pendleton MD [facility] [address] [place] [address] PCP - General 10/21/23 Sal Mar MD [facility] [place] [address] Medical Oncologist Hematology and Oncology 10/16/23 documented as of this encounter
--- OUTSIDE RECORDS SUMMARY | 2025-03-14 09:20 | XMS_ITS | Encounter Summary ---
Author Organization [facility] Address [address] [place] [address] Care Team Providers Care Flight Reservations Manager Name Role Phone System, Provider Not In MD Primary Care Provider Unavailable Sal Mar MD Unavailable [phone] Edson Pendleton MD Primary Care Provider [phone] Encounter Details Date Type Department Care Team (Late Contact Info) Description 01/08/2022 Orders Only [facility] @ [facility] [address] [place] [address] Fidel Vasquez MD [address] [place], [place] [id number] Social History Tobacco Use Types Packs/Day Years [...] Building Surgery Spine & Joint [address] [facility], [address] [place] [address] Pedro Abdul PA [address] [place] [address] documented as of this encounter Procedures Procedure Name Priority Date/Time Associated Diagnosis Comments CALPROTECTIN, FECAL BY IMMUNOASSAY (SO) Routine 01/08/2022 12:38 PM EDT documented in this encounter Results * Calprotectin, Fecal by Immunoassay (01/08/2022 12:38 PM EDT) External Calprotectin 30 mcg/g [facility] Comment: Reference Range: <50 Normal 50-120 Borderline >120 Elevated Calprotectin in Crohn's disease and ulcerative colitis can be five to several thousand times above the reference population (50 mcg/g or less). Levels are usually 50 mcg/g or less in healthy patients and with irritable bowel syndrome. Repeat testing in 4-6 weeks is suggested for borderline values. TEST PERFORMED AT: [employer] [address] [place] [address] LI CALERO MD,PHD,SEBLE 01/08/2022 12:3 8 PM EDT 01/08/2022 12:45 PM EDT Fidel Vasquez MD LAB BODY FLUIDS AND STOOLS O RDERABLES Final Result [facility] [address] [place] [address], documented in this encounter Visit Diagnoses Not on filedocumented in this encounter Care Teams Flight Reservations Manager Relationship Specialty Start Date End Date System, Provider Not In, [address] [place] [address] PCP - General Family Medicine 07/15/21 10/20/23 Edson Pendleton MD [address] [facility] [address] [place] [address] PCP - General 10/21/23 Sal Mar MD [address] [place] [address] Medical Oncologist Hematology and Oncology 10/16/23 documented as of this encounter
--- OUTSIDE RECORDS SUMMARY | 2025-03-14 09:20 | XMS_ITS | Encounter Summary ---
Author Organization [facility] Address [address] [place] [address] Care Team Providers Care Health Promotion Manager Name Role Phone System, Provider Not In MD Primary Care Provider Unavailable Sal Mar MD Unavailable [phone] Edson Pendleton MD Primary Care Provider [phone] Encounter Details Date Type Department Care Team (Late Contact Info) Description 01/03/2022 Orders Only [facility] @ [facility] [address] [place] [address] Fidel Vasquez MD [address] [place], [place] [id number] Social History Tobacco Use Types Packs/Day Years [...] Building Surgery Sp[facility] Joint [address] [facility], [address] [place] [address] Pedro Abdul PA [address] [place] [address] documented as of this encounter Procedures Procedure Name Priority Date/Time Associated Diagnosis Comments THIOPURINE METABOLITES (SO) Routine 01/03/2022 4:15 PM EDT documented in this encounter Results * (ABNORMAL) Thiopurine Metabolites (01/03/2022 4:15 PM EDT) EXTERNAL 6-TGN 212(L) 235 - 400 pmol/8x10( 8)RBC [facility] Comment: This test was developed and its analytical performance characteristics have been determined by [facility]. It has not been cleared or approved by the FDA. This assay has been validated pursuant to the CLIA regulations and is used for clinical purposes. EXTERNAL 6-MMPN <500 <5700 pmol/8x10( 8)RBC [facility] Comment: These results are useful [...] analytical performance characteristics have been determined by [facility]. It has not been cleared or approved by the FDA. This assay has been validated pursuant to the CLIA regulations and is used for clinical purposes. TEST PERFORMED AT: [facility] [address] [place] [address] MICHAELA FRANCIS MD 01/03/2022 4:15 PM EDT 01/03/2022 5:15 PM EDT Fidel Vasquez MD LAB BLOOD ORDERABLES Final R esult [facility] [address] [place] [address], documented in this encounter Visit Diagnoses Not on filedocumented in this encounter Care Teams Health Promotion Manager Relationship Specialty Start Date End Date System, Provider Not In, [address] [place] [address] PCP - General Family Medicine 07/15/21 10/20/23 Edson Pendleton MD [address] [place] [address] PCP - General 10/21/23 Sal Mar MD [address] [place], [place] [address] Medical Oncologist Hematology and Oncology 10/16/23 documented as of this encounter
--- OUTSIDE RECORDS SUMMARY | 2025-03-14 09:20 | XMS_ITS | Encounter Summary ---
Author Organization [facility] Address [address] [place] [address] Care Team Providers Care Wheelage Clerk Name Role Phone Sal Mar MD Unavailable [phone] Edson Pendleton MD Primary Care Provider [phone] Reason for Visit * Reason Onset Date Comments Requesting Appt 01/21/2025 Encounter Details Date Type Department Care Team (Late st Contact Info) Description 01/21/2025 Telephone [facility] [address] [place] [address] Sal Mar MD [address] [address] Requesting Appt Social History Tobacco [...] Joint [address], [address] [place] [address] Pedro Abdul PA [address] [place] [address] documented as of this encounter Visit Diagnoses Not on filedocumented in this encounter Additional Health Concerns Assessment Noted Time A fall risk assessment has been complete d for the patient 11/05/2023 1:17 PM EDT documented as of this encounter Care Teams Wheelage Clerk Relationship Specialty Start Date End Date Edson Pendleton MD [address] [place] [address] PCP - General 10/21/23 Sal Mar MD [address] [place] [address] Medical Oncologist Hematology and Oncology 10/16/23 documented as of this encounter
--- OUTSIDE RECORDS SUMMARY | 2025-03-14 09:20 | XMS_ITS | Encounter Summary ---
Author Organization [facility] Address [address] [place] [address] Care Team Providers Care Bottoming Machine Operator Name Role Phone Sal Mar MD Unavailable [phone] Edson Pendleton MD Primary Care Provider [phone] Encounter Details Date Type Department Care Team [...] Building Surgery Spine & Joint [address] [facility], [address] [place] [address] Pedro Abdul PA [address] [place] [address] documented as of this encounter Visit Diagnoses Not on filedocumented in this encounter Additional Health Concerns Assessment Noted Time A fall risk assessment has been complete d for the patient 11/05/2023 1:17 PM EDT documented as of this encounter Care Teams Bottoming Machine Operator Relationship Specialty Start Date End Date Edson Pendleton MD [address] [place] [address] PCP - General 10/21/23 Sal Mar MD [address] [place] [address] Medical Oncologist Hematology and Oncology 10/16/23 documented as of this encounter
--- OUTSIDE RECORDS SUMMARY | 2025-03-14 09:20 | XMS_ITS | Encounter Summary ---
Author Organization [facility] Address [address] [place] [address] Care Team Providers Care Binder Cutter Hand Name Role Phone System, Provider Not In MD Primary Care Provider Unavailable Sal Mar MD Unavailable [phone] Edson Pendleton MD Primary Care Provider [phone] Encounter Details Date Type Department Care Team (Late Contact Info) Description 01/03/2022 Orders Only [facility] @ [facility] [address] [place] [address] Fidel Vasquez MD [address] [place], [place] [address] Social History Tobacco Use Types Packs/Day Years [...] [facility], [address] [place] [address] Pedro Abdul PA [address] [place] [address] documented as of this encounter Procedures Procedure [...] R esult [facility] [address] [place] [address], documented in this encounter Visit Diagnoses Not on filedocumented in this encounter Care Teams Binder Cutter Hand Relationship Specialty Start Date End Date System, Provider Not In, [address] [place] [address] PCP - General Family Medicine 07/15/21 10/20/23 Edson Pendleton MD [address] [facility] [address] [place] [address] PCP - General 10/21/23 Sal Mar MD [address] [place] [address] Medical Oncologist Hematology and Oncology 10/16/23 documented as of this encounter
--- OUTSIDE RECORDS SUMMARY | 2025-03-14 09:20 | XMS_ITS | Encounter Summary ---
Author Organization [facility] Address [address] [place] [address] Care Team Providers Care Dietitian Therapeutic Name Role Phone Sal Mar MD Unavailable [phone] Edson Pendleton MD Primary Care Provider [phone] Encounter Details Date Type Department Care Team [...] Building Surgery Spine & Joint [address] [facility], [address] [place] [address] Pedro Abdul PA [address] [place] [address] documented as of this encounter Visit Diagnoses Not on filedocumented in this encounter Additional Health Concerns Assessment Noted Time A fall risk assessment has been complete d for the patient 11/05/2023 1:17 PM EDT documented as of this encounter Care Teams Dietitian Therapeutic Relationship Specialty Start Date End Date Edson Pendleton MD [address] [place] [address] PCP - General 10/21/23 Sal Mar MD [address] [place] [address] Medical Oncologist Hematology and Oncology 10/16/23 documented as of this encounter
--- OUTSIDE RECORDS SUMMARY | 2025-03-14 09:20 | XMS_ITS | Encounter Summary ---
Author Organization [facility] Address [address] [place] [address] Care Team Providers Care Helmet Binder Name Role Phone Sal Mar MD Unavailable [phone] Edson Pendleton MD Primary Care Provider [phone] Encounter Details Date Type Department Care Team [...] [facility], [address] [place] [address] Pedro Abdul PA [address] [facility] [address] [place] [address] documented as of this encounter Visit Diagnoses Not on filedocumented in this encounter Additional Health Concerns Assessment Noted Time A fall risk assessment has been complete d for the patient 02/16/2025 2:28 PM EDT documented as of this encounter Care Teams Helmet Binder Relationship Specialty Start Date End Date Edson Pendleton MD [address] [facility] [address] [facility] [address] [place] [address] PCP - General 10/21/23 Sal Mar MD [address] [place] [address] Medical Oncologist Hematology and Oncology 10/16/23 documented as of this encounter
--- OUTSIDE RECORDS SUMMARY | 2025-03-14 09:20 | XMS_ITS | Encounter Summary ---
Author Organization [facility] Address [address] [place] [address] Care Team Providers Care Digital Advertising Specialist Name Role Phone System, Provider Not In MD Primary Care Provider Unavailable Sal Mar MD Unavailable [phone] Edson Pendleton MD Primary Care Provider [phone] Encounter Details Date Type Department Care Team (Late Contact Info) Description 01/08/2022 Orders Only [facility] @ [facility] [address] [place] [address] Fidel Vasquez MD [address] [place], [place] [address] Social History Tobacco Use Types Packs/Day Years [...] Spine & Joint [address] [facility], [address] [place] [address] Pedro Abdul PA [address] [place] [address] documented as of this encounter Procedures Procedure Name Priority Date/Time Associated Diagnosis Comments PANCREATIC ELASTASE, FECAL Routine 01/08/2022 12:38 PM EDT documented in this encounter Results * Pancreatic elastase, fecal (01/08/2022 12:38 PM EDT) External Pancreatic Elastase 287 mcg/g [facility] Comment: Adult and Pediatric Reference Ranges for Pancreatic Elastase-1: Normal: >200 mcg/g Moderate Pancreatic Insufficiency: 100-200 mcg/g Severe Pancreatic Insufficiency: <100 mcg/g Elastase-1 (E-1) assay results are expressed in mcg/g, which represent mcg E1/g feces. It is not necessary to interrupt enzyme substitution therapy. TEST PERFORMED AT: [employer] [address] [place] [address] LI CAELRO MD,PHD,SEBLE 01/08/2022 12:3 8 PM EDT 01/08/2022 12:45 PM EDT Fidel Vasquez MD LAB BODY FLUIDS AND STOOLS O RDERABLES Final Result [facility] [address] [place] [address], documented in this encounter Visit Diagnoses Not on filedocumented in this encounter Care Teams Digital Advertising Specialist Relationship Specialty Start Date End Date System, Provider Not In, [address] [place] [address] PCP - General Family Medicine 07/15/21 10/20/23 Edson Pendleton MD [address] [facility] [address] [place] [address] PCP - General 10/21/23 Sal Mar MD [address] [place] [address] Medical Oncologist Hematology and Oncology 10/16/23 documented as of this encounter
--- OUTSIDE RECORDS SUMMARY | 2025-03-14 09:20 | XMS_ITS | Encounter Summary ---
Author Organization [facility] Address [address] [place] [address] Care Team Providers Care Chief Nursing Officer Name Role Phone System, Provider Not In MD Primary Care Provider Unavailable Sal Mar MD Unavailable [phone] Edson Pendleton MD Primary Care Provider [phone] Encounter Details Date Type Department Care Team (Late Contact Info) Description 01/03/2022 Orders Only [facility] @ [facility] [address] [place] [address] Fidel Vasquez MD [address] [place], [place] [address] Social History Tobacco Use Types Packs/Day Years [...] Building Surgery Spine & Joint [address] [facility], [address] [place] [address] Pedro Abdul PA [address] [place] [address] documented as of this encounter [...] External [facility] 31 26 - 35 [facility] External [facility] 35 32 - [...] [facility] External Absolute Monocyte (Abs Solano) 0.3 0.0 - 1.2 K/uL [facility] esult [facility] [address] [place] [address], documented in this encounter Visit Diagnoses Not on filedocumented in this encounter Care Teams Chief Nursing Officer Relationship Specialty Start Date End Date System, Provider Not In, [address] [place] [address] PCP - General Family Medicine 07/15/21 10/20/23 Edson Pendletno MD [address] [place] [address] PCP - General 10/21/23 Sal Mar MD [address] [place], [place] [address] Medical Oncologist Hematology and Oncology 10/16/23 documented as of this encounter
--- OUTSIDE RECORDS SUMMARY | 2025-03-14 09:21 | XMS_ITS | Encounter Summary ---
Author Organization [facility] Address [address] [place] [address] Care Team Providers Care Hook Up Name Role Phone System, Provider Not In MD Primary Care Provider Unavailable Sal Mar MD Unavailable [phone] Edson Pendleton MD Primary Care Provider [phone] Encounter Details Date Type Department Care Team (Late Contact Info) Description 11/08/2022 Orders Only [facility] [address] [place] [address] Sal Mar MD [address] [phone] Social History Tobacco Use Types Packs/Day Years [...] [address] [facility], [address] [place] [address] Pedro Abdul PA [address] [place] [address] documented as of this encounter Procedures Procedure Name Priority Date/Time Associated Diagnosis Comments COMPREHENSIVE METABOLIC PANEL, PLASMA Routine 11/08/2022 12:45 PM EDT documented in this encounter Results * (ABNORMAL) Comprehensive Metabolic Panel, Plasma (11/08/2022 12:45 PM EDT) External Glucose 93 74 - 100 mg/dL [facility] External BUN 27(H) 6 - 20 mg/dL [facility] External Creatinine Blood 1.39(H) 0.50 - 0.95 mg/dL [facility] External BUN/Creat Ratio 19 10 - 20 (calc) [facility] External Sodium 141 136 - 145 mmol/L [facility] External Potassium 4.3 3.4 - 5.0 mmol/L [facility] External Chloride 105 98 - 107 mmol/L [facility] External Carbon Dioxide 24 22 - 31 mmol/L [facility] External Anion Gap (AG) 12 7 - 25 (calc) [facility] External Calcium 8.4(L) 8.6 - 10.2 mg/dL [facility] External Total Protein 5.9(L) 6.4 - 8.3 g/dL [facility] External Albumin 3.7 3.5 - 5.2 g/dL [facility] External Globulin 2.2 1.5 - 4.5 g/dL (calc) [facility] External Albumin/Globulin Ratio 1.7 1.1 - 2.5 (calc) [facility] External Bilirubin Total 0.2 0.1 - 1.2 mg/dL [facility] External Alkaline Phosphatase 45 30 - 121 U/L [facility] External AST (SGOT) 16 0 - 32 U/L [facility] External ALT (SGPT) 11 0 - 33 U/L [facility] External Estimated GFR 37(A) >=60 [facility] Comment: NOTE New calculation for GFR (CKD-EPI 2020) is formulated without race adjustment factors at the recommendation of the National Kidney Foundation and [place] [employer] Nephrology. This calculation has not been validated in women. For pediatric patients refer to https://www.kidney.org/professionals/KDOQI/gfr_calculatorPed 11/08/2022 12:4 5 PM EDT 11/08/2022 12:54 PM EDT Sal Mar MD LAB BLOOD ORDERABLES Final Res ult [facility] [address] [place] [address], documented in this encounter Visit Diagnoses Not on filedocumented in this encounter Care Teams Hook Up Relationship Specialty Start Date End Date System, Provider Not In, [address] [place] [address] PCP - General Family Medicine 07/15/21 10/20/23 Edson Pendleton MD [address] [place] [address] PCP - General 10/21/23 Sal Mar MD [address] [place] [address] Medical Oncologist Hematology and Oncology 10/16/23 documented as of this encounter
--- OUTSIDE RECORDS SUMMARY | 2025-03-14 09:21 | XMS_ITS | Encounter Summary ---
Author Organization [facility] Address [address] [place] [address] Care Team Providers Care Tunnel Man Name Role Phone System, Provider Not In MD Primary Care Provider Unavailable Sal Mar MD Unavailable [phone] Edson Pendleton MD Primary Care Provider [phone] Encounter Details Date Type Department Care Team (Late Contact Info) Description 11/08/2022 Orders Only [facility] [address] [place] [address] Sal Mar MD [address] [phone] Social History Tobacco Use Types Packs/Day Years [...] Surgery Spine & Joint [address] [facility], [address] [place] [address] Pedro Abdul PA [address] [place] [address] documented as of this encounter Procedures Procedure Name Priority Date/Time Associated Diagnosis Comments IRON & TOTAL IRON BINDING CAPACITY, PLASMA (INCLUDES TRANSFERRIN) Routine 11/08/2022 12:45 PM EDT documented in this encounter Results * (ABNORMAL) Iron & Total Iron Binding Capacity, Plasma (Includes Transferrin) (11/08/2022 12:45 PM EDT) External Iron 105 37 - 145 ug/dL [facility] External Total Iron Binding Capacity 481(H) 250 - 450 ug/dL (calc) [facility] External Unsaturated Iron Binding Capacity 376(H) 112 - 347 ug/dL [facility] External Iron-Saturation% 22 15 - 50 % (calc) [facility] 11/08/2022 12:4 5 PM EDT 11/08/2022 12:54 PM EDT us Sal Mar MD LAB BLOOD ORDERABLES Final Res ult [facility] [address] [place] [address], documented in this encounter Visit Diagnoses Not on filedocumented in this encounter Care Teams Tunnel Man Relationship Specialty Start Date End Date System, Provider Not In, [address] [place] [address] PCP - General Family Medicine 07/15/21 10/20/23 Edson Pendleton MD [address] [facility] [address] [place] [address] PCP - General 10/21/23 Sal Mar MD [address] [place] [address] Medical Oncologist Hematology and Oncology 10/16/23 documented as of this encounter
--- OUTSIDE RECORDS SUMMARY | 2025-03-14 09:21 | XMS_ITS | Encounter Summary ---
Author Organization [facility] Address [address] [place] [address] Care Team Providers Care Tag Stringer Name Role Phone System, Provider Not In MD Primary Care Provider Unavailable Sal Mar MD Unavailable [phone] Edson Pendleton MD Primary Care Provider [phone] Encounter Details Date Type Department Care Team (Late Contact Info) Description 08/10/2021 Orders Only [facility] @ [facility] [address] [place] [address] Fidel Vasquez MD [address] [place], [place] [id number] Social History Tobacco Use Types [...] Building Surgery [facility] [address] [facility], [address] [place] [address] Pedro Abdul PA [address] [place] [address] documented as of this encounter Procedures Procedure Name Priority Date/Time Associated Diagnosis Comments IRON & TOTAL IRON BINDING CAPACITY, PLASMA (INCLUDES TRANSFERRIN) Routine 08/10/2021 2:45 PM EST documented in this encounter Results * (ABNORMAL) Iron & Total Iron Binding Capacity, Plasma (Includes Transferrin) (08/10/2021 2:45 PM EST) External Iron 65 37 - 145 ug/dL [facility] External Total Iron Binding Capacity 555(H) 250 - 450 ug/dL (calc) [facility] External Unsaturated Iron Binding Capacity 490(H) 112 - 347 ug/dL [facility] External Iron-Saturation% 12(L) 15 - 50 % (calc) [facility] 08/10/2021 2:45 PM EST 08/10/2021 7:55 PM EST us Fidel Vasquez MD LAB BLOOD ORDERABLES Final R esult [facility] [address] [place] [address], documented in this encounter Visit Diagnoses Not on filedocumented in this encounter Care Teams Tag Stringer Relationship Specialty Start Date End Date System, Provider Not In, [address] [place] [address] PCP - General Family Medicine 07/15/21 10/20/23 Edson Pendleton MD [address] [facility] [address] [place] [address] PCP - General 10/21/23 Sal Mar MD [address] [place] [address] Medical Oncologist Hematology and Oncology 10/16/23 documented as of this encounter
--- OUTSIDE RECORDS SUMMARY | 2025-03-14 09:21 | XMS_ITS | Encounter Summary ---
Author Organization [facility] Address [address] [place] [address] Care Team Providers Care Skilled Nursing Case Manager Name Role Phone System, Provider Not In MD Primary Care Provider Unavailable Sal Mar MD Unavailable [phone] Edson Pendleton MD Primary Care Provider [phone] Encounter Details Date Type Department Care Team (Late Contact Info) Description 11/08/2022 Orders Only [facility] at [facility] [address] [place] [address] Sal Mar MD [address] [phone] Social History Tobacco Use Types Packs/Day Years [...] Surgery Spine & Joint [address] [facility], [address] [place] [address] Pedro Abdul PA [address] [place] [phone] documented as of this encounter Procedures Procedure Name Priority Date/Time Associated Diagnosis Comments FERRITIN, SERUM Routine 11/08/2022 12:45 PM EDT documented in this encounter Results * (ABNORMAL) Ferritin, Serum (11/08/2022 12:45 PM EDT) External Ferritin 9(L) 13 - 157 ng/mL [facility] 11/08/2022 12:4 5 PM EDT 11/08/2022 12:54 PM EDT Sal Mar MD LAB BLOOD ORDERABLES Final Res ult [facility] [address] [place] [address], documented in this encounter Visit Diagnoses Not on filedocumented in this encounter Care Teams Skilled Nursing Case Manager Relationship Specialty Start Date End Date System, Provider Not In, [address] [place] [address] PCP - General Family Medicine 07/15/21 10/20/23 Edson Pendleton MD [address] [place] [address] PCP - General 10/21/23 aSl Mar MD [address] [place] [address] Medical Oncologist Hematology and Oncology 10/16/23 documented as of this encounter
--- OUTSIDE RECORDS SUMMARY | 2025-03-14 09:21 | XMS_ITS | Encounter Summary ---
Author Organization [facility] Address [address] [place] [address] Care Team Providers Care Research Chief Engineer Name Role Phone System, Provider Not In MD Primary Care Provider Unavailable Sal Mar MD Unavailable [phone] Edson Pendleton MD Primary Care Provider [phone] Encounter Details Date Type Department Care Team (Late Contact Info) Description 11/08/2022 Orders Only [facility] at [facility] [address] [place] [address] Sal Mar MD [address] [phone] Social History Tobacco Use Types Packs/Day Years [...] Surgery Spine & Joint [address] [facility], [address] [place] [address] Pedro Abdul PA [address] [place] [address] documented as of this encounter Procedures Procedure Name Priority Date/Time Associated Diagnosis Comments CBC WITH AUTO DIFFERENTIAL Routine 11/08/2022 12:45 PM EDT documented in this encounter Results * (ABNORMAL) CBC and Differential (11/08/2022 12:45 PM EDT) External WBC 4.3 3.8 - 10.8 K/uL [facility] External Red Blood Cell (RBC) 3.16(L) 3.80 - 5.20 M/uL [facility] External Hemoglobin 9.9(L) 12.0 - 16.0 G/DL [facility] External Hematocrit 29.0(L) 35.0 - 47.0 % [facility] External MCV 92 80 - 100 fL [facility] External MCH 31 26 - 35 PG [facility] External MCHC 34 32 - 36 G/DL [facility] External RDW 14.3 11.0 - 15.0 % [facility] External Mean Platelet Volume 7.2 6.2 - 10.5 fL [facility] External Platelets 206 130 - 400 K/uL [facility] External Neutrophil# 3.2 1.6 - 8.4 K/uL [facility] External Lymphocyte# 0.6 0.4 - 5.1 K/uL [facility] External Absolute Monocyte (Abs [place]) 0.4 0.0 - 1.2 K/uL [facility] External Eosinophils# 0.1 0.0 - 0.8 K/uL [facility] External Baso# 0.1 0.0 - 0.3 K/uL [facility] External Neutrophils % 74.1 42.0 - 78.0 % [facility] External Lymphocyte % 14.0 11.0 - 47.0 % [facility] External Monocyte % 8.2 0.0 - 11.0 % [facility] External Eosinophil% 2.5 0.0 - 7.0 % [facility] External Basophil % 1.2 0.0 - 3.0 % [facility] External Nucleated RBC%-Auto 0.0 0.0 - 0.9 % [facility] External Nucleated RBC Absolute 0.00 Not Estab. K/uL [facility] 11/08/2022 12:4 5 PM EDT 11/08/2022 12:53 PM EDT Sal Mar MD LAB BLOOD ORDERABLES Final Res ult [facility] [address] [place] [address], documented in this encounter Visit Diagnoses Not on filedocumented in this encounter Care Teams Research Chief Engineer Relationship Specialty Start Date End Date System, Provider Not In, [address] [place] [address] PCP - General Family Medicine 07/15/21 10/20/23 Edson Pendleton MD [address] [place] [address] PCP - General 10/21/23 Sal Mar MD [address] [place] [address] Medical Oncologist Hematology and Oncology 10/16/23 documented as of this encounter
--- OUTSIDE RECORDS SUMMARY | 2025-03-14 09:21 | XMS_ITS | Encounter Summary ---
Author Organization [facility] Address [address] [place] [address] Care Team Providers Care Jury Consultant Name Role Phone System, Provider Not In MD Primary Care Provider Unavailable Sal Mar MD Unavailable [phone] Edson Pendleton MD Primary Care Provider [phone] Encounter Details Date Type Department Care Team (Late Contact Info) Description 11/09/2021 Orders Only [facility] at [facility] [address] [place] [address] Sal Mar MD [address] [phone] Social History Tobacco Use Types Packs/Day Years [...] Spine & Joint [address] [facility], [address] [place] [address] Pedro Abdul PA [address] [place] [address] documented as of this encounter Procedures Procedure Name Priority Date/Time Associated Diagnosis Comments FERRITIN, SERUM Routine 11/09/2021 3:53 PM EDT documented in this encounter Results * (ABNORMAL) Ferritin, Serum (11/09/2021 3:53 PM EDT) External Ferritin 9(L) 13 - 157 ng/mL [facility] 11/09/2021 3:53 PM EDT 11/09/2021 6:04 PM EDT us Sal Mar MD LAB BLOOD ORDERABLES Final Res ult [facility] [address] [place] [address], documented in this encounter Visit Diagnoses Not on filedocumented in this encounter Care Teams Jury Consultant Relationship Specialty Start Date End Date System, Provider Not In, [address] [place] [address] PCP - General Family Medicine 07/15/21 10/20/23 Edson Pendleton MD [address] [place] [address] PCP - General 10/21/23 Sal Mar MD [address] [place] [address] Medical Oncologist Hematology and Oncology 10/16/23 documented as of this encounter
--- OUTSIDE RECORDS SUMMARY | 2025-03-14 09:21 | XMS_ITS | Encounter Summary ---
Author Organization [facility] Address [address] [place] [address] Care Team Providers Care Cassandra Developer Name Role Phone Sal Mar MD Unavailable [phone] Edson Pendleton MD Primary Care Provider [phone] Encounter Details Date Type Department Care Team (Late Contact Info) Description 03/05/2025 Orders Only External Location [address] [place] [address] Provider, External Social History Tobacco Use Types [...] Spine & Joint [address] [facility], [address] [place] [address] Pedro Abdul PA [address] [place] [address] documented as of this encounter [...] documented as of this encounter Care Teams Cassandra Developer Relationship Specialty Start Date End Date Edson Pendleton MD [address] [place] [address] PCP - General 10/21/23 Sal Mar MD [address] [place] [address] Medical Oncologist Hematology and Oncology 10/16/23 documented as of this encounter
--- OUTSIDE RECORDS SUMMARY | 2025-03-14 09:21 | XMS_ITS | Encounter Summary ---
Author Organization [facility] Address [address] [place] [address] Care Team Providers Care Quality Technician Name Role Phone System, Provider Not In MD Primary Care Provider Unavailable Sal Mar MD Unavailable [phone] Edson Pendleton MD Primary Care Provider [phone] Encounter Details Date Type Department Care Team (Late Contact Info) Description 11/09/2021 Orders Only [facility] [address] [place] [address] Sal Mar MD [address] [phone] Social History Tobacco Use Types Packs/Day Years [...] Building Surgery Spine & Joint [address] [facility], [address] [place] [address] Pedro Abdul PA [address] [place] [address] documented as of this encounter Procedures Procedure Name Priority Date/Time Associated Diagnosis Comments COMPREHENSIVE METABOLIC PANEL, PLASMA Routine 11/09/2021 3:53 PM EDT documented in this encounter Results * (ABNORMAL) Comprehensive Metabolic Panel, Plasma (11/09/2021 3:53 PM EDT) External Glucose 89 74 - 100 mg/dL [facility] External BUN 17 6 - 20 mg/dL [facility] External Creatinine Blood 1.47(H) 0.50 - 0.95 mg/dL [facility] External BUN/Creat Ratio 12 10 - 20 (calc) [facility] External Sodium 141 136 - 145 mmol/L [facility] External Potassium 3.7 3.4 - 5.0 mmol/L [facility] External Chloride 105 98 - 107 mmol/L [facility] External Carbon Dioxide 24 22 - 31 mmol/L [facility] External Anion Gap (AG) 12 7 - 25 (calc) [facility] External Calcium 8.9 8.6 - 10.2 mg/dL [facility] External Total Protein 6.5 6.4 - 8.3 g/dL [facility] External Albumin 4.3 3.5 - 5.2 g/dL [facility] External Globulin 2.2 1.5 - 4.5 g/dL (calc) [facility] External Albumin/Globulin Ratio 2.0 1.1 - 2.5 (calc) [facility] External Bilirubin Total 0.2 0.1 - 1.2 mg/dL [facility] External Alkaline Phosphatase 57 30 - 121 U/L [facility] External AST (SGOT) 27 0 - 32 U/L [facility] External ALT (SGPT) 17 0 - 33 U/L [facility] External EGFR (If AFR/AM) 38(A) >=60 [facility] External Estimated GFR 33(A) >=60 [facility] Comment: NOTE Chronic kidney disease [...] Res ult [facility] [address] [place] [address], documented in this encounter Visit Diagnoses Not on filedocumented in this encounter Care Teams Quality Technician Relationship Specialty Start Date End Date System, Provider Not In, [address] [place] [address] PCP - General Family Medicine 07/15/21 10/20/23 Edson Pendleton MD [address] [place] [id number] PCP - General 10/21/23 Sal Mar MD [address] [place], [place] [address] Medical Oncologist Hematology and Oncology 10/16/23 documented as of this encounter
--- OUTSIDE RECORDS SUMMARY | 2025-03-14 09:21 | XMS_ITS | Encounter Summary ---
Author Organization [facility] Address [address] [place] [address] Care Team Providers Care Director Of Admissions Name Role Phone Sal Mar MD Unavailable [phone] Edson Pendleton MD Primary Care Provider [phone] Encounter Details Date Type Department Care Team (Late Contact Info) Description 03/05/2025 Orders Only External Location [address] [place] [address] Provider, External Social History Tobacco Use Types [...] Building Surgery Spine & Joint [address] [facility], [address] [place] [address] Pedro Abdul PA [address] [place] [address] documented as of this encounter [...] documented as of this encounter Care Teams Director Of Admissions Relationship Specialty Start Date End Date Edson Pendleton MD [address] [place] [address] PCP - General 10/21/23 Sal Mar MD [address] [place] [address] Medical Oncologist Hematology and Oncology 10/16/23 documented as of this encounter
--- OUTSIDE RECORDS SUMMARY | 2025-03-14 09:21 | XMS_ITS | Encounter Summary ---
Author Organization [facility] Address [address] [place] [address] Care Team Providers Care Property Management Assistant Name Role Phone System, Provider Not In MD Primary Care Provider Unavailable Sal Mar MD Unavailable [phone] Edson Pendleton MD Primary Care Provider [phone] Encounter Details Date Type Department Care Team (Late Contact Info) Description 08/10/2021 Orders Only [facility] [address] [place] [address] Fidel Vasquez MD [address] [place], [place] [phone] Social History Tobacco Use Types Packs/Day Years [...] Building Surgery Spine & Joint [address] [facility], [address] [place] [address] Pedro Abdul PA [address] [place] [address] documented as of this encounter Procedures Procedure Name Priority Date/Time Associated Diagnosis Comments FERRITIN, SERUM Routine 08/10/2021 2:45 PM EST documented in this encounter Results * (ABNORMAL) Ferritin, Serum (08/10/2021 2:45 PM EST) External Ferritin 6(L) 13 - 157 ng/mL [facility] 08/10/2021 2:45 PM EST 08/10/2021 7:55 PM EST us Fidel Vasquez MD LAB BLOOD ORDERABLES Final R esult [facility] [address] [place] [address], documented in this encounter Visit Diagnoses Not on filedocumented in this encounter Care Teams Property Management Assistant Relationship Specialty Start Date End Date System, Provider Not In, [address] [place] [address] PCP - General Family Medicine 07/15/21 10/20/23 Edson Pendleton MD [address] [facility] [address] [place] [address] PCP - General 10/21/23 Sal Mar MD [address] [place] [address] Medical Oncologist Hematology and Oncology 10/16/23 documented as of this encounter
--- OUTSIDE RECORDS SUMMARY | 2025-03-14 09:21 | XMS_ITS | Encounter Summary ---
Author Organization [facility] Address [address] [place] [address] Care Team Providers Care Press Smith Helper Name Role Phone System, Provider Not In MD Primary Care Provider Unavailable Sal Mar MD Unavailable [phone] Edson Pendleton MD Primary Care Provider [phone] Encounter Details Date Type Department Care Team (Late Contact Info) Description 11/09/2021 Orders Only [facility] at [facility] [address] [place] [address] Sal Mar MD [address] [phone] Social History Tobacco Use Types Packs/Day Years [...] E [facility], [address] [place] [address] Pedro Abdul PA [address] [place] [address] documented as of this encounter Procedures Procedure Name Priority Date/Time Associated Diagnosis Comments CBC WITH AUTO DIFFERENTIAL Routine 11/09/2021 3:53 PM EDT documented in this encounter Results * (ABNORMAL) CBC and Differential (11/09/2021 3:53 PM EDT) External WBC 3.9 3.8 - 10.8 K/uL [facility] External Red Blood Cell (RBC) 3.18(L) 3.80 - 5.20 M/uL [facility] External Hemoglobin 9.5(L) 12.0 - 16.0 G/DL [facility] External Hematocrit 27.0(L) 35.0 - 47.0 % [facility] External MCV 85 80 - 100 fL [facility] External MCH 30 26 - 35 PG [facility] External MCHC 35 32 - 36 G/DL [facility] External RDW 15.0 11.0 - 15.0 % [facility] External Mean Platelet Volume 7.2 6.2 - 10.5 fL [facility] External Platelets 228 130 - 400 K/uL [facility] External Neutrophil# 2.9 1.6 - 8.4 K/uL [facility] External Lymphocyte# 0.6 0.4 - 5.1 K/uL [facility] External Absolute Monocyte (Abs [place]) 0.3 0.0 - 1.2 K/uL [facility] External Eosinophils# 0.1 0.0 - 0.8 K/uL [facility] External Baso# 0.0 0.0 - 0.3 K/uL [facility] External Neutrophils % 73.4 42.0 - 78.0 % [facility] External Lymphocyte % 16.4 11.0 - 47.0 % [facility] External Monocyte % 6.8 0.0 - 11.0 % [facility] External Eosinophil% 2.3 0.0 - 7.0 % [facility] External Basophil % 1.1 0.0 - 3.0 % [facility] External Nucleated RBC%-Auto 0.1 0.0 - 0.9 % [facility] External Nucleated RBC Absolute 0.00 Not Estab. K/uL [facility] 11/09/2021 3:53 PM EDT 11/09/2021 6:01 PM EDT Sal Mar MD LAB BLOOD ORDERABLES Final Res ult [facility] [address] [place] [address], documented in this encounter Visit Diagnoses Not on filedocumented in this encounter Care Teams Press Smith Helper Relationship Specialty Start Date End Date System, Provider Not In, [address] [place] [address] PCP - General Family Medicine 07/15/21 10/20/23 Edson Pendleton MD [address] [place] [address] [address] [place] [address] PCP - General 10/21/23 Sal Mar MD [address] [place], [place] [id number] Medical Oncologist Hematology and Oncology 10/16/23 documented as of this encounter
--- OUTSIDE RECORDS SUMMARY | 2025-03-14 09:21 | XMS_ITS | Clinical Summary ---
Author Organization [facility] Address [address] [place] [address] Care Team Providers Care Auditor Appraiser Name Role Phone Sal Mar MD Unavailable [phone] Edson Pendleton MD Primary Care Provider [phone] Allergies Active Allergy Reactions Criticality Noted Date [...] Description 03/05/2025 Orders Only External Location [address] [place] [address] Provider, External 03/05/2025 Orders Only External Location [address] [place] [address] Provider, External 03/05/2025 Orders Only External Location [address] [place] [address] Provider, External 02/16/2025 2:00 PM EDT Infusion [facility] at [place] [address] [place] [address] Iron deficiency 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 blood loss (Primary Dx); Crohn's disease of colon with complication (CMS/HCC); Stage 3 chronic kidney disease, unspecified whether stage 3a or 3b CKD (CMS/HCC) 02/16/2025 Travel 02/04/2025 2:00 PM EDT Infusion [facility] at [facility] [address] [place] [address] Iron deficiency 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 blood loss (Primary Dx); Stage 3 chronic kidney disease, unspecified whether stage 3a or 3b CKD (CMS/HCC); Crohn's disease of colon with complication (CMS/HCC) 02/04/2025 Travel 02/02/2025 Travel 01/28/2025 1:45 PM EDT Office Visit [facility] at [facility] [address] [place] [address] Sal Mar MD Iron deficiency 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 blood loss (Primary Dx); Crohn's disease of colon with complication (CMS/HCC); Stage 3 chronic kidney disease, unspecified whether stage 3a or 3b CKD (CMS/HCC) 01/28/2025 Orders Only [facility] at [address] [address] Carrie Chavira, PharmD 01/28/2025 Travel 01/21/2025 Telephone [facility] at [facility] [address] [place] [address] Sal Mar MD Requesting Appt from [...] Surgery Spine & Joint [address] [facility], [address] [place] [address] Pedro Abdul, PA [address] [place] [address] Health Maintenance Due Date Last Done Comments [facility]-Depression Screening 1938 [facility]-Medicare Annual Wellness (AWV) 1938 [facility]-/Child/Adol SDOH Screenings 1938 [facility]- SDOH Screenings 1956 [facility]-Adult SDOH Screenings 1956 [facility]-DTaP,Tdap,and Td Vaccines (1 - Tdap) 1957 [facility]-Zoster Vaccines (1 of 2) 1957 [facility]-Bone Density Scan 05/13/2022 05/13/2020 , 05/13/2020, 06/21/2017, Additional history exists RCT-GLOLM-90 Vaccine (9 - Moderna risk season) 2024 [...] (Includes Transferrin) (01/25/2025 3:06 PM EDT) Pathologist [facility] External Iron 45 37 - 145 ug/dL 01/25/2025 7:00 PM EDT [facility] External Total Iron Binding Capacity 498(H) 250 - 450 ug/dL (calc) 01/25/2025 7:00 PM EDT [facility] External Unsaturated Iron Binding Capacity 453(H) 112 - 347 ug/dL 01/25/2025 7:00 PM EDT [facility] External Iron-Saturation% 9(L) 15 - 50 % (calc) 01/25/2025 7:00 PM EDT [facility] Blood Venous blood specimen / Unknown 01/25/2025 3:06 PM EDT 01/25/2025 6:31 PM EDT us Sal Mar MD LAB BLOOD ORDERABLES Final Res ult [facility] [place] [address], * (ABNORMAL) CBC and Differential (01/25/2025 3:06 PM EDT) External WBC 4.8 3.8 - 10.8 10*3/uL 01/25/2025 6:35 PM EDT [facility] External Red Blood Cell (RBC) 3.13(L) 3.80 - 5.20 10*6/uL 01/25/2025 6:35 PM EDT [facility] External Hemoglobin 9.4(L) 12.0 - 16.0 g/dL 01/25/2025 6:35 PM EDT [facility] External Hematocrit 27.9(L) 35.0 - 47.0 % 01/25/2025 6:35 PM EDT [facility] External MCV 89 80 - 100 fL 01/25/2025 6:35 PM EDT [facility] External MCH 30 26 - 35 pg 01/25/2025 6:35 PM EDT [facility] External MCHC 34 32 - 36 g/dL 01/25/2025 6:35 PM EDT [facility] External RDW 14.2 11.0 - 15.0 % 01/25/2025 6:35 PM EDT [facility] External Mean Platelet Volume 7.6 6.2 - 10.5 fL 01/25/2025 6:35 PM EDT [facility] External Platelet Count (Plt) 328 150 - 400 10*3/uL 01/25/2025 6:35 PM EDT [facility] External Neutrophil# 3.5 1.6 - 8.4 10*3/uL 01/25/2025 6:35 PM EDT [facility] External Lymphocyte# 0.6 0.4 - 5.1 10*3/uL 01/25/2025 6:35 PM EDT [facility] External Absolute Monocyte (Abs [place]) 0.4 0.0 - 1.2 10*3/uL 01/25/2025 6:35 PM EDT [facility] External Eosinophils# 0.1 0.0 - 0.8 10*3/uL 01/25/2025 6:35 PM EDT [facility] External Baso# 0.1 0.0 - 0.3 10*3/uL 01/25/2025 6:35 PM EDT [facility] External Neutrophils % 73.6 42.0 - 78.0 % 01/25/2025 6:35 PM EDT [facility] External Lymphocyte % 13.2 11.0 - 47.0 % 01/25/2025 6:35 PM EDT [facility] External Monocyte % 9.2 0.0 - 11.0 % 01/25/2025 6:35 PM EDT [facility] External Eosinophil% 2.5 0.0 - 7.0 % 01/25/2025 6:35 PM EDT [facility] External Basophil % 1.5 0.0 - 3.0 % 01/25/2025 6:35 PM EDT [facility] External Nucleated RBC%-Auto 0.0 0.0 - 0.9 % 01/25/2025 6:35 PM EDT [facility] External Nucleated RBC Absolute 0.00 Not Estab. 10*3/uL 01/25/2025 6:35 PM EDT [facility] Blood Venous blood specimen / Unknown 01/25/2025 3:06 PM EDT 01/25/2025 6:32 PM EDT us Sal Mar MD LAB BLOOD ORDERABLES Final Res ult Performing Organization Address [facility] Co de Phone Number [facility] [address] [place] [address], * Ferritin, Serum (01/25/2025 3:06 PM EDT) Pathologist [facility] External Ferritin 13 13 - 157 ng/mL 01/25/2025 7:00 PM EDT [facility] Blood Venous blood specimen / Unknown 01/25/2025 3:06 PM EDT 01/25/2025 6:31 PM EDT us Sal Mar MD LAB BLOOD ORDERABLES Final Res ult Performing Organization Address [facility]/ZIP Co de Phone Number [facility] [address] [place] [address], [place] [phone] * (ABNORMAL) Comprehensive Metabolic Panel, Plasma (01/25/2025 3:06 PM EDT) External Glucose 104(H) 74 - 100 mg/dL 01/25/2025 7:00 PM [facility] External BUN 21(H) 6 - 20 mg/dL 01/25/2025 7:00 PM [facility] External Creatinine Blood 1.47(H) 0.50 - 0.95 mg/dL 01/25/2025 7:00 PM [facility] External BUN/Creat Ratio 14 10 - 20 (calc) 01/25/2025 7:00 PM [facility] External Sodium 142 136 - 145 mmol/L 01/25/2025 7:00 PM [facility] External Potassium 4.2 3.4 - 5.0 mmol/L 01/25/2025 7:00 PM [facility] External Chloride 107 98 - 107 mmol/L 01/25/2025 7:00 PM [facility] External Carbon Dioxide (CO2) 23 22 - 31 mmol/L 01/25/2025 7:00 PM [facility] External Anion Gap (AG) 12 7 - 25 (calc) 01/25/2025 7:00 PM [facility] External Calcium 8.4(L) 8.6 - 10.2 mg/dL 01/25/2025 7:00 PM [facility] External Total Protein 6.3(L) 6.4 - 8.3 g/dL 01/25/2025 7:00 PM [facility] External Albumin 3.7 3.5 - 5.2 g/dL 01/25/2025 7:00 PM [facility] External Globulin 2.6 1.5 - 4.5 025 7:00 PM [facility] External Albumin/Globulin Ratio 1.4 1.1 - 2.5 (calc) 01/25/2025 7:00 PM [facility] External Bilirubin Total <0.2 0.1 - 1.2 mg/dL 01/25/2025 7:00 PM [facility] External Alkaline Phosphatase 72 30 - 121 U/L 01/25/2025 7:00 PM [facility] External AST (SGOT) 17 0 - 32 U/L 01/25/2025 7:00 PM [facility] External ALT (SGPT) 10 0 - 33 U/L 01/25/2025 7:00 PM EDT [facility] External Estimated GFR 34(A) >=60 01/25/2025 7:00 PM EDT [facility] Comment: NOTE New calculation [...] MD LAB BLOOD ORDERABLES Final Res ult [facility] [address] [id number], from Last 3 Months Insurance [facility] Care Teams Auditor Appraiser Relationship Specialty Start Date End Date Edson Pendleton MD [address] [place] [address] PCP - General 10/21/23 Sla Mar MD [address] [place] [address] Medical Oncologist Hematology and Oncology 10/16/23
--- OUTSIDE RECORDS SUMMARY | 2025-03-14 09:21 | XMS_ITS | Encounter Summary ---
Author Organization [facility] Address [address] [place] [address] Care Team Providers Care General Adjuster Name Role Phone Sal Mar MD Unavailable [phone] Edson Pendleton MD Primary Care Provider [phone] Encounter Details Date Type Department Care Team [...] Joint [address], [address] [place] [address] Pedro Abdul PA [address] [facility] [address] [place] [address] documented as of this encounter Visit Diagnoses Not on filedocumented in this encounter Additional Health Concerns Assessment Noted Time A fall risk assessment has been complete d for the patient 02/04/2025 2:33 PM EDT documented as of this encounter Care Teams General Adjuster Relationship Specialty Start Date End Date Edson Pendleton MD [address] [facility] [address] [facility] [address] [place] [address] PCP - General 10/21/23 Sal Mar MD [address] [place] [address] Medical Oncologist Hematology and Oncology 10/16/23 documented as of this encounter
--- OUTSIDE RECORDS SUMMARY | 2025-03-14 09:21 | XMS_ITS | Encounter Summary ---
Author Organization [facility] Address [address] [place] [address] Care Team Providers Care Hydraulic Barker Operator Name Role Phone System, Provider Not In MD Primary Care Provider Unavailable Sal Mar MD Unavailable [phone] Edson Pendleton MD Primary Care Provider [phone] Encounter Details Date Type Department Care Team (Late Contact Info) Description 08/10/2021 Orders Only [facility] @ [facility] [address] [place] [address] Fidel Vasquez MD [address] [place], [place] [id number] Social History Tobacco Use Types Packs/Day Years [...] [facility], [address] [place] [address] Pedro Abdul PA [address] [place] [address] documented as of this encounter Procedures Procedure Name Priority Date/Time Associated Diagnosis Comments CBC WITH AUTO DIFFERENTIAL Routine 08/10/2021 2:45 PM EST documented in this encounter Results * (ABNORMAL) CBC and Differential (08/10/2021 2:45 PM EST) External WBC 5.0 3.8 - 10.8 K/uL [facility] External Red Blood Cell (RBC) 3.57(L) 3.80 - 5.20 M/uL [facility] External Hemoglobin 10.7(L) 12.0 - 16.0 G/DL [facility] External Hematocrit 31.8(L) 35.0 - 47.0 % [facility] External MCV 89 80 - 100 fL [facility] External MCH 30 26 - 35 PG [facility] External MCHC 34 32 - 36 G/DL [facility] External RDW 15.3(H) 11.0 - 15.0 % [facility] External Mean Platelet Volume 8.0 6.2 - 10.5 fL [facility] External Platelets 278 130 - 400 K/uL [facility] External Neutrophil# 3.6 1.6 - 8.4 K/uL [facility] External Lymphocyte# 0.8 0.4 - 5.1 K/uL [facility] External Absolute Monocyte (Abs [place]) 0.4 0.0 - 1.2 K/uL [facility] External Eosinophils# 0.1 0.0 - 0.8 K/uL [facility] External Baso# 0.1 0.0 - 0.3 K/uL [facility] External Neutrophils % 72.9 42.0 - 78.0 % [facility] External Lymphocyte % 15.6 11.0 - 47.0 % [facility] External Monocyte % 8.0 0.0 - 11.0 % [facility] External Eosinophil% 2.4 0.0 - 7.0 % [facility] External Basophil % 1.1 0.0 - 3.0 % [facility] External Nucleated RBC%-Auto 0.0 0.0 - 0.9 % [facility] External Nucleated RBC Absolute 0.00 Not Estab. K/uL [facility] 08/10/2021 2:45 PM EST 08/10/2021 7:49 PM EST Fidel Vasquez MD LAB BLOOD ORDERABLES Final R esult [facility] [address] [place] [address], documented in this encounter Visit Diagnoses Not on filedocumented in this encounter Care Teams Hydraulic Barker Operator Relationship Specialty Start Date End Date System, Provider Not In, [address] [place] [address] PCP - General Family Medicine 07/15/21 10/20/23 Edson Pendleton MD [facility] [address] [place] [address] PCP - General 10/21/23 Sal Mar MD [address] [place] [id number] Medical Oncologist Hematology and Oncology 10/16/23 documented as of this encounter
--- OUTSIDE RECORDS SUMMARY | 2025-03-14 09:21 | XMS_ITS | Encounter Summary ---
Author Organization [facility] Address [address] [place] [address] Care Team Providers Care Environmental Test Technician Name Role Phone System, Provider Not In MD Primary Care Provider Unavailable Sal Mar MD Unavailable [phone] Edson Pendleton MD Primary Care Provider [phone] Encounter Details Date Type Department Care Team (Late Contact Info) Description 11/09/2021 Orders Only [facility] [address] [place] [address] Sal Mar MD [address] [id number] Social History Tobacco Use Types Packs/Day Years [...] Building Surgery Spine & Joint [address] [facility], [address] [place] [address] Pedro Abdul PA [address] [facility] [address] [place] [address] documented as of this encounter Procedures Procedure Name Priority Date/Time Associated Diagnosis Comments IRON & TOTAL IRON BINDING CAPACITY, PLASMA (INCLUDES TRANSFERRIN) Routine 11/09/2021 3:53 PM EDT documented in this encounter Results * (ABNORMAL) Iron & Total Iron Binding Capacity, Plasma (Includes Transferrin) (11/09/2021 3:53 PM EDT) External Iron 32(L) 37 - 145 ug/dL [facility] External Total Iron Binding Capacity 524(H) 250 - 450 ug/dL (calc) [facility] External Unsaturated Iron Binding Capacity 492(H) 112 - 347 ug/dL [facility] External Iron-Saturation% 6(L) 15 - 50 % (calc) [facility] 11/09/2021 3:53 PM EDT 11/09/2021 6:04 PM EDT us Sal Mar MD LAB BLOOD ORDERABLES Final Res ult [facility] [address] [place] [address], documented in this encounter Visit Diagnoses Not on filedocumented in this encounter Care Teams Environmental Test Technician Relationship Specialty Start Date End Date System, Provider Not In, [address] [place] [address] PCP - General Family Medicine 07/15/21 10/20/23 Edson Pendleton MD [address] [facility] [address] [facility] [address] [place] [address] PCP - General 10/21/23 Sal Mar MD [address] [place] [address] Medical Oncologist Hematology and Oncology 10/16/23 documented as of this encounter
--- OUTSIDE RECORDS SUMMARY | 2025-03-14 09:21 | XMS_ITS | Encounter Summary ---
Author Organization [facility] Address [address] [place] [address] Care Team Providers Care Front Services Agent Name Role Phone System, Provider Not In MD Primary Care Provider Unavailable Sal Mar MD Unavailable [phone] Edson Pendleton MD Primary Care Provider [phone] Encounter Details Date Type Department Care Team (Late Contact Info) Description 08/10/2021 Orders Only [facility] @ [facility] [address] [place] [address] Fidel Vasquez MD [address] [place], [place] [id number] Social History Tobacco Use Types Packs/Day Years [...] Building Surgery Spine & Joint [address] [facility], [address] [place] [address] Pedro Abdul PA [address] [place] [address] documented as of this encounter Procedures Procedure Name Priority Date/Time Associated Diagnosis Comments PROTHROMBIN TIME(PT) / INR Routine 08/10/2021 2:45 PM EST documented in this encounter Results * (ABNORMAL) Prothrombin Time/INR (08/10/2021 2:45 PM EST) External Prothrombin Time (PT) 9.6 9.0 - 11.4 SECONDS [facility] External INR - Internormal Ratio 0.9(L) 2.0 - 3.0 [facility] Comment: INR OF 2.0 TO 3.0 [...] esult [facility] [address] [place] [address], documented in this encounter Visit Diagnoses Not on filedocumented in this encounter Care Teams Front Services Agent Relationship Specialty Start Date End Date System, Provider Not In, [address] [place] [address] PCP - General Family Medicine 07/15/21 10/20/23 Edson Pendleotn MD [address] [place] [address] PCP - General 10/21/23 Sal Mar MD [address] [place] [address] Medical Oncologist Hematology and Oncology 10/16/23 documented as of this encounter
--- OUTSIDE RECORDS SUMMARY | 2025-03-14 09:21 | XMS_ITS | Encounter Summary ---
Author Organization [facility] Address [address] [place] [address] Care Team Providers Care Early Childhood Education Coordinator Name Role Phone Sal Mar MD Unavailable [phone] Edson Pendleton MD Primary Care Provider [phone] Encounter Details Date Type Department Care Team (Late Contact Info) Description 03/05/2025 Orders Only External Location [address] [place] [address] Provider, External Social History Tobacco Use Types [...] Spine & Joint [address] [facility], [address] [place] [address] Pedro Abdul PA [address] [place] [address] documented as of this encounter [...] documented as of this encounter Care Teams Early Childhood Education Coordinator Relationship Specialty Start Date End Date Edson Pendleton MD [address] [place] [address] PCP - General 10/21/23 Sal Mar MD [address] [place] [address] Medical Oncologist Hematology and Oncology 10/16/23 documented as of this encounter
--- OUTSIDE RECORDS SUMMARY | 2025-03-14 09:22 | XMS_ITS | Encounter Summary ---
Author Organization [facility] Address [address] [place] [address] Care Team Providers Care Special Delivery Clerk Name Role Phone System, Provider Not In MD Primary Care Provider Unavailable Sal Mar MD Unavailable [phone] Edson Pendleton MD Primary Care Provider [phone] Encounter Details Date Type Department Care Team (Late Contact Info) Description 07/19/2022 Orders Only [facility] [address] [place] [address] Fidel Vasquez MD [address] [place], [place] [id number] Social History Tobacco Use Types Packs/Day Years [...] Surgery Spine & Joint [address] [facility], [address] [place] [address] Pedro Abdul PA [address] [place] [address] documented as of this encounter Procedures Procedure Name Priority Date/Time Associated Diagnosis Comments CBC WITH AUTO DIFFERENTIAL Routine 07/19/2022 3:24 PM EST documented in this encounter Results * (ABNORMAL) CBC and Differential (07/19/2022 3:24 PM EST) External WBC 4.0 3.8 - 10.8 K/uL [facility] External Red Blood Cell (RBC) 3.72(L) 3.80 - 5.20 M/uL [facility] External Hemoglobin 11.3(L) 12.0 - 16.0 G/DL [facility] External Hematocrit 32.9(L) 35.0 - 47.0 % [facility] External MCV 89 80 - 100 fL [facility] External MCH 31 26 - 35 [facility] External MCHC 34 32 - 36 G/DL [facility] External RDW 15.7(H) 11.0 - 15.0 % [facility] External Mean Platelet Volume 7.4 6.2 - 10.5 fL [facility] External Platelets 263 130 - 400 K/uL [facility] External Neutrophil# 2.6 1.6 - 8.4 K/uL [facility] External Lymphocyte# 0.9 0.4 - 5.1 K/uL [facility] External Absolute Monocyte (Abs [place]) 0.3 0.0 - 1.2 K/uL [facility] External Eosinophils# 0.1 0.0 - 0.8 K/uL [facility] External Baso# 0.1 0.0 - 0.3 K/uL [facility] External Neutrophils % 66.0 42.0 - 78.0 % [facility] External Lymphocyte % 21.4 11.0 - 47.0 % [facility] External Monocyte % 8.1 0.0 - 11.0 % [facility] External Eosinophil% 3.2 0.0 - 7.0 % [facility] External Basophil % 1.3 0.0 - 3.0 % [facility] External Nucleated RBC%-Auto 0.2 0.0 - 0.9 % [facility] External Nucleated RBC Absolute 0.01 Not Estab. K/uL [facility] 07/19/2022 3:24 PM EST 07/19/2022 3:49 PM EST Fidel Vasquez MD LAB BLOOD ORDERABLES Final R esult [facility] [address] [place] [address], documented in this encounter Visit Diagnoses Not on filedocumented in this encounter Care Teams Special Delivery Clerk Relationship Specialty Start Date End Date System, Provider Not In, [address] [place] [address] PCP - General Family Medicine 07/15/21 10/20/23 Edson Pendleton MD [facility] [address] [place] [address] PCP - General 10/21/23 Sal Mar MD [address] [place] [id number] Medical Oncologist Hematology and Oncology 10/16/23 documented as of this encounter
--- OUTSIDE RECORDS SUMMARY | 2025-03-14 09:22 | XMS_ITS | Encounter Summary ---
Author Organization [facility] Address [address] [place] [address] Care Team Providers Care Spectrographer Name Role Phone System, Provider Not In MD Primary Care Provider Unavailable Sal Mar MD Unavailable [phone] Edson Pendleton MD Primary Care Provider [phone] Encounter Details Date Type Department Care Team (Late Contact Info) Description 02/08/2022 Orders Only [facility] [address] [place] [address] Sal Mar MD [address] [phone] Social History Tobacco Use Types Packs/Day Years [...] [facility], [address] [place] [address] Pedro Abdul PA [address] [place] [address] documented as of this encounter Procedures Procedure Name Priority Date/Time Associated Diagnosis Comments COMPREHENSIVE METABOLIC PANEL, PLASMA Routine 02/08/2022 2:16 PM EDT documented in this encounter Results * (ABNORMAL) Comprehensive Metabolic Panel, Plasma (02/08/2022 2:16 PM EDT) External Glucose 106(H) 74 - 100 mg/dL [facility] External BUN 27(H) 6 - 20 mg/dL [facility] External Creatinine Blood 1.59(H) 0.50 - 0.95 mg/dL [facility] External BUN/Creat Ratio 17 10 - 20 (calc) [facility] External Sodium 141 136 - 145 mmol/L [facility] External Potassium 4.0 3.4 - 5.0 mmol/L [facility] External Chloride 103 98 - 107 mmol/L [facility] External Carbon Dioxide 26 22 - 31 mmol/L [facility] External Anion Gap (AG) 12 7 - 25 (calc) [facility] External Calcium 9.3 8.6 - 10.2 mg/dL [facility] External Total Protein 6.1(L) 6.4 - 8.3 g/dL [facility] External Albumin 4.1 3.5 - 5.2 g/dL [facility] External Globulin 2.0 1.5 - 4.5 g/dL (calc) [facility] External Albumin/Globulin Ratio 2.1 1.1 - 2.5 (calc) [facility] External Bilirubin Total 0.3 0.1 - 1.2 mg/dL [facility] External Alkaline Phosphatase 47 30 - 121 U/L [facility] External AST (SGOT) 19 0 - 32 U/L [facility] External ALT (SGPT) 13 0 - 33 U/L [facility] External Estimated GFR 32(A) >=60 [facility] Comment: NOTE New calculation for GFR [...] Res ult [facility] [address] [place] [address], documented in this encounter Visit Diagnoses Not on filedocumented in this encounter Care Teams Spectrographer Relationship Specialty Start Date End Date System, Provider Not In, [address] [place] [address] PCP - General Family Medicine 07/15/21 10/20/23 Edson Pendleton MD [address] [place] [address] PCP - General 10/21/23 Sal Mar MD [address] [place] [address] Medical Oncologist Hematology and Oncology 10/16/23 documented as of this encounter
--- OUTSIDE RECORDS SUMMARY | 2025-03-14 09:22 | XMS_ITS | Encounter Summary ---
Author Organization [facility] Address [address] [place] [address] Care Team Providers Care Technology Advisor Name Role Phone System, Provider Not In MD Primary Care Provider Unavailable Sal Mar MD Unavailable [phone] Edson Pendleton MD Primary Care Provider [phone] Encounter Details Date Type Department Care Team (Late Contact Info) Description 07/19/2022 Orders Only [facility] @ [facility] [address] [place] [address] Fidel Vasquez MD [address] [place], [place] [id number] Social History Tobacco Use Types Packs/Day Years [...] [facility] [address] [facility], [address] [place] [address] Pedro Abdul PA [address] [place] [address] documented as of this encounter Procedures Procedure Name Priority Date/Time Associated Diagnosis Comments COMPREHENSIVE METABOLIC PANEL, PLASMA Routine 07/19/2022 3:24 PM EST documented in this encounter Results * (ABNORMAL) Comprehensive Metabolic Panel, Plasma (07/19/2022 3:24 PM EST) External Glucose 84 74 - 100 mg/dL [facility] External BUN 20 6 - 20 mg/dL [facility] External Creatinine Blood 1.18(H) 0.50 - 0.95 mg/dL [facility] External BUN/Creat Ratio 17 10 - 20 (calc) [facility] External Sodium 144 136 - 145 mmol/L [facility] External Potassium 4.2 3.4 - 5.0 mmol/L [facility] External Chloride 107 98 - 107 mmol/L [facility] External Carbon Dioxide 26 22 - 31 mmol/L [facility] External Anion Gap (AG) 11 7 - 25 (calc) [facility] External Calcium 9.2 8.6 - 10.2 mg/dL [facility] External Total Protein 6.6 6.4 - 8.3 g/dL [facility] External Albumin 4.2 3.5 - 5.2 g/dL [facility] External Globulin 2.4 1.5 - 4.5 g/dL (calc) [facility] External Albumin/Globulin Ratio 1.8 1.1 - 2.5 (calc) [facility] External Bilirubin Total 0.2 0.1 - 1.2 mg/dL [facility] External Alkaline Phosphatase 54 30 - 121 U/L [facility] External AST (SGOT) 20 0 - 32 U/L [facility] External ALT (SGPT) 12 0 - 33 U/L [facility] External Estimated GFR 46(A) >=60 [facility] Comment: NOTE New calculation for GFR (CKD-EPI 2020) is formulated without race adjustment factors at the recommendation of the National Kidney Foundation and [place] [employer]ph[employer]. This calculation has not been validated in women. For pediatric patients refer to https://www.kidney.org/professionals/KDOQI/gfr_calculatorPed 07/19/2022 3:24 PM EST 07/19/2022 3:56 PM EST Fidel Vasquez MD LAB BLOOD ORDERABLES Final R esult [facility] [address] [place] [address], documented in this encounter Visit Diagnoses Not on filedocumented in this encounter Care Teams Technology Advisor Relationship Specialty Start Date End Date System, Provider Not In, [address] [place] [address] PCP - General Family Medicine 07/15/21 10/20/23 Edson Pendleton MD [address] [facility] [address] [place] [address] PCP - General 10/21/23 Sal Mar MD [address] [place] [address] Medical Oncologist Hematology and Oncology 10/16/23 documented as of this encounter
--- OUTSIDE RECORDS SUMMARY | 2025-03-14 09:22 | XMS_ITS | Clinical Summary ---
Author Organization [employer] ([place], [place], [place], [place]) Address [address] [place] [address] Care Team Providers Care Day Trader Name Role Phone Unavailable Primary Care Provider [...]
--- OUTSIDE RECORDS SUMMARY | 2025-03-14 09:22 | XMS_ITS | Encounter Summary ---
Author Organization [facility] Address [address] [place] [address] Care Team Providers Care Prevention Specialist Name Role Phone System, Provider Not In MD Primary Care Provider Unavailable Sal Mar MD Unavailable [phone] Edson Pendleton MD Primary Care Provider [phone] Encounter Details Date Type Department Care Team (Late Contact Info) Description 02/08/2022 Orders Only [facility] [address] [place] [address] Sal Mar MD [address] [phone] Social History Tobacco Use Types Packs/Day Years [...] [facility] [address] [facility], [address] [place] [address] Pedro Abdul PA [address] [place] [address] documented as of this encounter Procedures Procedure Name Priority Date/Time Associated Diagnosis Comments CBC WITH AUTO DIFFERENTIAL Routine 02/08/2022 2:16 PM EDT documented in this encounter Results * (ABNORMAL) CBC and Differential (02/08/2022 2:16 PM EDT) External WBC 4.3 3.8 - 10.8 K/uL [facility] External Red Blood Cell (RBC) 3.61(L) 3.80 - 5.20 M/uL [facility] External Hemoglobin 11.5(L) 12.0 - 16.0 G/DL [facility] External Hematocrit 32.7(L) 35.0 - 47.0 % [facility] External MCV 91 80 - 100 fL [facility] External MCH 32 26 - 35 PG [facility] External MCHC 35 32 - 36 G/DL [facility] External RDW 14.1 11.0 - 15.0 % [facility] External Mean Platelet Volume 7.1 6.2 - 10.5 fL [facility] External Platelets 216 130 - 400 K/uL [facility] External Neutrophil# 3.2 1.6 - 8.4 K/uL [facility] External Lymphocyte# 0.6 0.4 - 5.1 K/uL [facility] External Absolute Monocyte (Abs Davis) 0.4 0.0 - 1.2 K/uL [facility] External Eosinophils# 0.1 0.0 - 0.8 K/uL [facility] External Baso# 0.1 0.0 - 0.3 K/uL [facility] External Neutrophils % 74.5 42.0 - 78.0 % [facility] External Lymphocyte % 13.0 11.0 - 47.0 % [facility] External Monocyte % 8.8 0.0 - 11.0 % [facility] External Eosinophil% 2.4 0.0 - 7.0 % [facility] External Basophil % 1.3 0.0 - 3.0 % [facility] External Nucleated RBC%-Auto 0.1 0.0 - 0.9 % [facility] External Nucleated RBC Absolute 0.00 Not Estab. K/uL [facility] 02/08/2022 2:16 PM EDT 02/08/2022 2:22 PM EDT Sal Mar MD LAB BLOOD ORDERABLES Final Res ult [facility] [address] [place] [address], documented in this encounter Visit Diagnoses Not on filedocumented in this encounter Care Teams Prevention Specialist Relationship Specialty Start Date End Date System, Provider Not In, [address] [place] [address] PCP - General Family Medicine 07/15/21 10/20/23 Edson Pendleton MD [address] [place] [address] [address] [place] [address] PCP - General 10/21/23 Sal aMr MD [address] [place], [place] [id number] Medical Oncologist Hematology and Oncology 10/16/23 documented as of this encounter
--- OUTSIDE RECORDS SUMMARY | 2025-03-14 09:22 | XMS_ITS | Encounter Summary ---
Author Organization [facility] Address [address] [place] [address] Care Team Providers Care Fire And Explosion Investigator Name Role Phone System, Provider Not In MD Primary Care Provider Unavailable Sal Mar MD Unavailable [phone] Edson Pendleton MD Primary Care Provider [phone] Encounter Details Date Type Department Care Team (Late Contact Info) Description 07/19/2022 Orders Only [facility] @ [facility] [address] [place] [address] Fidel Vasquez MD [address] [place], [place] [id number] Social History Tobacco Use Types Packs/Day Years [...] [facility] [address] [facility], [address] [place] [address] Pedro Abdul PA [address] [place] [address] documented as of this encounter Procedures Procedure Name Priority Date/Time Associated Diagnosis Comments FERRITIN, SERUM Routine 07/19/2022 3:24 PM EST documented in this encounter Results * Ferritin, Serum (07/19/2022 3:24 PM EST) External Ferritin 14 13 - 157 ng/mL [facility] 07/19/2022 3:24 PM EST 07/19/2022 3:56 PM EST us Fidel Vasquez MD LAB BLOOD ORDERABLES Final R esult [facility] [address] [place] [address], documented in this encounter Visit Diagnoses Not on filedocumented in this encounter Care Teams Fire And Explosion Investigator Relationship Specialty Start Date End Date System, Provider Not In, [address] [place] [address] PCP - General Family Medicine 07/15/21 10/20/23 Edson Pendleton MD [address] [facility] [address] [place] [address] PCP - General 10/21/23 Sal Mar MD [address] [place] [address] Medical Oncologist Hematology and Oncology 10/16/23 documented as of this encounter
--- OUTSIDE RECORDS SUMMARY | 2025-03-14 09:22 | XMS_ITS | Encounter Summary ---
Author Organization [facility] Address [address] [place] [address] Care Team Providers Care Electrician'S Assistant Name Role Phone System, Provider Not In MD Primary Care Provider Unavailable Sal Mar MD Unavailable [phone] Edson Pendleton MD Primary Care Provider [phone] Encounter Details Date Type Department Care Team (Late Contact Info) Description 07/19/2022 Orders Only [facility] @ [facility] [address] [place] [address] Fidel Vasquez MD [address] [place], [place] [id number] Social History Tobacco Use Types Packs/Day Years [...] [facility] [address] [facility], [address] [place] [address] Pedro Abdul PA [address] [place] [address] documented as of this encounter Procedures Procedure Name Priority Date/Time Associated Diagnosis Comments IRON & TOTAL IRON BINDING CAPACITY, PLASMA (INCLUDES TRANSFERRIN) Routine 07/19/2022 3:24 PM EST documented in this encounter Results * (ABNORMAL) Iron & Total Iron Binding Capacity, Plasma (Includes Transferrin) (07/19/2022 3:24 PM EST) External Iron 93 37 - 145 ug/dL [facility] External Total Iron Binding Capacity 507(H) 250 - 450 ug/dL (calc) [facility] External Unsaturated Iron Binding Capacity 414(H) 112 - 347 ug/dL [facility] External Iron-Saturation% 18 15 - 50 % (calc) [facility] 07/19/2022 3:24 PM EST 07/19/2022 3:56 PM EST us Fidel Vasquez MD LAB BLOOD ORDERABLES Final R esult [facility] [address] [place] [address], documented in this encounter Visit Diagnoses Not on filedocumented in this encounter Care Teams Electrician'S Assistant Relationship Specialty Start Date End Date System, Provider Not In, [address] [place] [address] PCP - General Family Medicine 07/15/21 10/20/23 Edson Penldeton MD [address] [facility] [address] [place] [address] PCP - General 10/21/23 Sal Mar MD [address] [place] [address] Medical Oncologist Hematology and Oncology 10/16/23 documented as of this encounter
--- OUTSIDE RECORDS SUMMARY | 2025-03-14 09:22 | XMS_ITS | Encounter Summary ---
Author Organization [facility] Address [address] [place] [address] Care Team Providers Care Bronze Plater Name Role Phone System, Provider Not In MD Primary Care Provider Unavailable Sal Mar MD Unavailable [phone] Edson Pendleton MD Primary Care Provider [phone] Encounter Details Date Type Department Care Team (Late Contact Info) Description 02/08/2022 Orders Only [facility] at [facility] [address] [place] [address] Sal Mar MD [address] [phone] Social History Tobacco Use Types Packs/Day Years [...] [facility], [address] [place] [address] Pedro Abdul PA [address] [facility] [address] [place] [address] documented as of this encounter Procedures Procedure Name Priority Date/Time Associated Diagnosis Comments IRON & TOTAL IRON BINDING CAPACITY, PLASMA (INCLUDES TRANSFERRIN) Routine 02/08/2022 2:16 PM EDT documented in this encounter Results * Iron & Total Iron Binding Capacity, Plasma (Includes Transferrin) (02/08/2022 2:16 PM EDT) External Iron 116 37 - 145 ug/dL [facility] External Total Iron Binding Capacity 419 250 - 450 ug/dL (calc) [facility] External Unsaturated Iron Binding Capacity 303 112 - 347 ug/dL [facility] External Iron-Saturation% 28 15 - 50 % (calc) [facility] 02/08/2022 2:16 PM EDT 02/08/2022 2:34 PM EDT us Sal Mar MD LAB BLOOD ORDERABLES Final Res ult [facility] [address] [place] [address], documented in this encounter Visit Diagnoses Not on filedocumented in this encounter Care Teams Bronze Plater Relationship Specialty Start Date End Date System, Provider Not In, [address] [place] [address] PCP - General Family Medicine 07/15/21 10/20/23 Edson Pendleton MD [address] [place] [address] PCP - General 10/21/23 Sal Mar MD [address] [place] [address] Medical Oncologist Hematology and Oncology 10/16/23 documented as of this encounter
--- OUTSIDE RECORDS SUMMARY | 2025-03-14 09:22 | XMS_ITS | Encounter Summary ---
Author Organization [facility] Address [address] [place] [address] Care Team Providers Care Quartz Miner Name Role Phone System, Provider Not In MD Primary Care Provider Unavailable Sal Mar MD Unavailable [phone] Edson Pendleton MD Primary Care Provider [phone] Encounter Details Date Type Department Care Team (Late Contact Info) Description 02/08/2022 Orders Only [facility] at [facility] [address] [place] [address] Sal Mar MD [address] [phone] Social History Tobacco Use Types Packs/Day Years [...] [facility] [address] [facility], [address] [place] [address] Pedro Abdul PA [address] [facility] [address] [place] [address] documented as of this encounter Procedures Procedure Name Priority Date/Time Associated Diagnosis Comments FERRITIN, SERUM Routine 02/08/2022 2:16 PM EDT documented in this encounter Results * Ferritin, Serum (02/08/2022 2:16 PM EDT) External Ferritin 94 13 - 157 ng/mL [facility] 02/08/2022 2:16 PM EDT 02/08/2022 2:34 PM EDT us Sal Mar MD LAB BLOOD ORDERABLES Final Res ult [facility] [address] [place] [address], documented in this encounter Visit Diagnoses Not on filedocumented in this encounter Care Teams Quartz Miner Relationship Specialty Start Date End Date System, Provider Not In, [address] [place] [address] PCP - General Family Medicine 07/15/21 10/20/23 Edson Pendleton MD [address] [facility] [address] [place] [address] PCP - General 10/21/23 Sal Mar MD [address] [place] [address] Medical Oncologist Hematology and Oncology 10/16/23 documented as of this encounter
--- OUTSIDE RECORDS SUMMARY | 2025-03-14 09:22 | XMS_ITS | Referral Summary ---
Author Organization [employer] ([place], [place], [place], [place]) Address [address] [place] [address] Care Team Providers Care Thread Singer Name Role Phone Unavailable Primary Care Provider [...]
--- OUTSIDE RECORDS SUMMARY | 2025-03-14 09:22 | XMS_ITS | Clinical Summary ---
Author Organization [facility] Address [address] [place] [address] Care Team Providers Care Track Hoe Operator Name Role Phone Provider, No Known Primary [...] Payer (Ef fective 2003-Present) Name:Alejandra Ramos Member ID:[id number] Relation to Subscriber:Self Name:Alejandra Ramos Subscriber ID:[id number] Payer ID:[id number] Group ID:Not on file Type:Not on file Address: [address] [employer] Care Teams Track Hoe Operator Relationship Specialty Start Date End Date Provider, No Known [facility] [place] [address] PCP - General 09/21/19
--- OUTSIDE RECORDS SUMMARY | 2025-03-14 09:22 | XMS_ITS | Encounter Summary ---
Author Organization [facility] Address [address] [place] [address] Care Team Providers Care Online Marketing Coordinator Name Role Phone System, Provider Not In MD Primary Care Provider Unavailable Sal Mar MD Unavailable [phone] Edson Pendleton MD Primary Care Provider [phone] Encounter Details Date Type Department Care Team (Late Contact Info) Description 01/16/2022 Orders Only [facility] @ [facility] [address] [place] [address] Fidel Vasquez MD [address] [place], [place] [phone] Social History Tobacco Use Types Packs/Day Years [...] [address] [facility], [address] [place] [address] Pedro Abdul PA [address] [place] [address] documented as of this encounter Procedures Procedure Name Priority Date/Time Associated Diagnosis Comments SURGICAL PATHOLOGY EXAM Routine 01/16/2022 documented in this encounter Results * Surgical Pathology Exam (01/16/2022) External Surgical Pathology SEE BELOW [facility] Comment: Department of Pathology Surgical Pathology Report NAME:ALEJANDRA MALONE PATH.:[id number] Copy to: Diagnosis: A) Ileum biopsy: Small [...] MD LAB PATHOLOGY ORDERABLES Fin al Result [facility] [address] [place] [address], [place] [phone] documented in this encounter Visit Diagnoses Not on filedocumented in this encounter Care Teams Online Marketing Coordinator Relationship Specialty Start Date End Date System, Provider Not In, [place] [address] PCP - General Family Medicine 07/15/21 10/20/23 Edson Pendleton MD [address] [place] [address] PCP - General 10/21/23 Sal Mar MD [address] [place] [address] Medical Oncologist Hematology and Oncology 10/16/23 documented as of this encounter
--- OUTSIDE RECORDS SUMMARY | 2025-03-14 09:22 | XMS_ITS | Encounter Summary ---
Author Organization [facility] Address [address] [place] [address] Care Team Providers Care Digital Imaging Specialist Name Role Phone System, Provider Not In MD Primary Care Provider Unavailable Sal Mar MD Unavailable [phone] Edson Pendleton MD Primary Care Provider [phone] Encounter Details Date Type Department Care Team (Late Contact Info) Description 07/19/2022 Orders Only [facility] @ [facility] [address] [place] [address] Fidel Vasquez MD [address] [place], [place] [phone] Social History Tobacco Use Types Packs/Day Years [...] [address] [facility], [address] [place] [address] Pedro Abdul PA [address] [place] [address] documented as of this encounter Procedures Procedure Name Priority Date/Time Associated Diagnosis Comments C-REACTIVE PROTEIN, PLASMA Routine 07/19/2022 3:24 PM EST documented in this encounter Results * C-Reactive Protein, Plasma (07/19/2022 3:24 PM EST) External C-Reactive Protein <0.06 0.00 - 0.49 mg/dL [facility] 07/19/2022 3:24 PM EST 07/19/2022 3:56 PM EST Fidel Vasquez MD LAB BLOOD ORDERABLES Final R esult [facility] [address] [place] [address], documented in this encounter Visit Diagnoses Not on filedocumented in this encounter Care Teams Digital Imaging Specialist Relationship Specialty Start Date End Date System, Provider Not In, [address] [place] [address] PCP - General Family Medicine 07/15/21 10/20/23 Edson Pendleton MD [facility] [address] [place] [address] PCP - General 10/21/23 Sal Mar MD [address] [place] [address] Medical Oncologist Hematology and Oncology 10/16/23 documented as of this encounter
--- OUTSIDE RECORDS SUMMARY | 2025-03-14 09:23 | XMS_ITS | Patient Health Record ---
[facility] Address [address] [place] [id number] Care Team Providers Care Photographic Restorer Name Role Phone Unique Pendleton Primary Care Provider Daniel Keys Unavailable [phone] Claudette Rees Unavailable [phone] Mar Paz Unavailable [phone] Allergies Allergen (clinical drug ingredient) Drug/Non Drug [...] - 38 platlet 299 100 - 400 P-Magnesium Reviewed date:01/03/2025 10:10:06 PM Interpretation:1.4 Performing Lab: Notes/Report: Test performed by [facility] [address] , [address], [place] [address] Sawyer Hyman MD, Burnisher [employer] Bumper CLIA: [id number] Magnesium 1.4 1.6-2.4 mg/dL P-TSH Reviewed date:01/03/2025 10:10:06 PM Interpretation:3.24 Performing Lab: Notes/Report: Test performed by [facility] [address] , [address], [place] [address] Sawyer Hyman MD, [employer] CLIA: [id number] TSH 3.24 0.43-5.25 mU/L X ray : Ankle, left Reviewed date:01/21/2025 08:24:07 AM Interpretation:soft tissue swelling Performing Lab: Notes/Report: soft tissue swelling CBC Venipuncture (in house) Reviewed date:06/25/2024 08:39:31 [...] - 38 platlet 246 100 - 400 P-Comprehensive Metabolic Pa lyndsey (CMP) Reviewed date:06/25/2024 08:39:31 AM Interpretation: Performing Lab: Notes/Report: Test performed by [facility] [address] [place] [address] , [address], [place] [address] Sawyer Hyman MD, [employer]umper CLIA: [id number] Sodium 142 135-145 mmol/L Potassium 4.6 3.5-5.3 [...] Interpretation: Performing Lab: Notes/Report: Test performed by [facility] [address] [place] [address] , [address], [place] [address] Sawyer Hyman MD, [employer] CLIA: [id number] Magnesium 1.2 1.6-2.4 mg/dL P-Vitamin B12 Reviewed date:01/03/2025 10:10:06 PM Interpretation:464 Performing Lab: Notes/Report: Test performed by [facility] [address] [place] [address] , [address] , [place] [address] Sawyer Hyman MD, [employer] CLIA: [id number] Vitamin B12 621 045-2366 pg/mL P-Comprehensive Metabolic Pa lyndsey (CMP) Reviewed date:01/03/2025 10:10:06 PM Interpretation:GFR 39 Performing Lab: Notes/Report: Test performed by [facility] [address] [place] [address] , [place] [address] Sawyer Hyman MD, [employer] CLIA: [id number] Sodium 143 135-145 mmol/L Potassium 4.0 3.5-5.3 [...] 0.2 <0.2-1.2 mg/dL A/G Ratio 1.9 1.1-2.5 Mammogram Reviewed date:04/10/2024 09:36:02 AM Interpretation:benign Performing Lab: Notes/Report: benign result benign Reason For Referral Reason patient needs PT/OT Diagnosis 1 Compression fracture of L2 vertebra, initial encounter (S32.020A) Referral Organization [facility] Referring Provider First Name Unique Villareal Referring Provider Last Name Helder Referring Provider Speciality [facility] Referred Provider Specialty [facility] General Notes Tamar Galeano 2024 01:28:40 PM > sent to [facility] Referral Priority Routine Medications Medication SIG (Take, [...] Intramuscular 05/07/2023 Administered Sandy Hawkins administered per [facility], failed to document in ecw Prevnar (PCV13) [...] Status Risk Notes Problem Information temporarily unavailable Sinusitis (J32.9) Active confirmed Problem Information temporarily unavailable Chronic renal insufficiency (N18.9) Active confirmed Problem Information temporarily unavailable Hypertriglyceridemia (E78.1) Active confirmed Problem Information temporarily unavailable Anxiety (F41.9) Active confirmed Problem Information temporarily unavailable Hypertension (I10) Active confirmed Problem Information temporarily unavailable Osteopenia (M85.80) Active confirmed Problem Information temporarily unavailable Piriformis syndrome of left side (G57.02) Active confirmed Problem Information temporarily unavailable Osteoarthritis (M19.90) Active confirmed Problem Information temporarily unavailable Paresthesia (R20.2) Active confirmed Problem Information temporarily unavailable Iron deficiency anemia (D50.9) Active confirmed Problem Information temporarily unavailable Vitamin B 12 deficiency (E53.8) Active confirmed Problem Information temporarily unavailable Sciatica of left side (M54.32) Active confirmed Problem Information temporarily unavailable Chronic maxillary sinusitis (J32.0) Active confirmed Problem Information temporarily unavailable Crohn's disease of large intestine without complications (K50.10) Active confirmed Problem Information temporarily unavailable Pulmonary fibrosis (J84.10) Active confirmed Problem Information temporarily unavailable Crohn disease (K50.90) Active confirmed Problem Information temporarily unavailable 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) Active confirmed Problem Information temporarily unavailable Transient cerebral ischemia, unspecified type (G45.9) Active confirmed Problem Information temporarily unavailable 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) Active confirmed Problem Information temporarily unavailable Arthritis of knee, 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) Active confirmed Problem Information temporarily unavailable Left sciatic nerve pain (M54.32) Active confirmed Problem Information temporarily unavailable Chronic anemia (D64.9) Active confirmed Problem Information temporarily unavailable 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 Vital Signs Heart Rate 83 /min 01/19/2025 Blood pressure diastolic 74 mm Hg 01/19/2025 Height 64 in 01/19/2025 Blood pressure systolic 133 mm Hg 01/19/2025 Weight 125.2 lbs 01/19/2025 BMI 21.49 kg/m2 01/19/2025 Encounters Encounter Location Date Provider Diagnosis [facility] [address] [place] [id number] 03/30/2024 R Mono Helder Vitamin B12 deficien cy E53.8 [facility] [address] [place], [place] [id number] 04/15/2024 Daniel [place] Vitamin B12 deficien cy E53.8 [facility] [address] [place], [place] [id number] 04/27/2024 Claudette Rees Sinusitis J32.9 [facility] [address] [place], [place] [id number] 05/06/2024 R Mono Helder Vitamin B12 deficien cy E53.8 [facility] [address] [place], [place] [id number] 05/21/2024 R Mono Helder B12 vitamin deficien cy 266.2 [facility] [address] [place] [id number] 06/05/2024 R Mono Helder Vitamin B 12 deficie ncy E53.8 [facility] [address] [place], [place] [id number] 06/23/2024 R Mono Helder Leg edema R60.0 ; Hypertension I10 ; Chronic renal insufficiency N18.9 ; Hypertriglyceridemia E78.1 ; Vitamin B 12 deficiency E53.8 and Pulmonary fibrosis J84.10 [facility] [address] [place], [place] [id number] 07/16/2024 R Mono Helder Arthritis of knee, r ight M19.90 ; Bakers cyst of knee, right M71.21 and Vitamin B 12 deficiency E53.8 [facility] [address] [place] [id number] 08/10/2024 R Mono Helder Vitamin B 12 deficie ncy E53.8 [facility] [address] [place], [place] [id number] 08/24/2024 R Mono Helder Vitamin B 12 deficie ncy E53.8 [facility] [address] [place] [id number] 10/09/2024 R Mono Helder Vitamin B 12 deficie ncy E53.8 and Hypertension I10 [facility] [address] [place], [place] [id number] 10/28/2024 R Mono Helder Vitamin B 12 deficie ncy E53.8 [facility] [address] [place], [place] [id number] 11/12/2024 R Mono Helder Vitamin B 12 deficie ncy E53.8 [facility] [address] [place], [place] [id number] 12/17/2024 R Mono Helder Vitamin B 12 deficie ncy E53.8 [facility] [address] [place], [place] [id number] 12/24/2024 Mar Crowdy Acute left ankle talita n M25.572 ; BMI 21.0-21.9, adult Z68.21 ; Pulmonary fibrosis J84.10 ; Crohn disease K50.90 ; Chronic anemia D64.9 and Crohn's disease of large intestine without complications K50.10 [facility] [address] [place], [place] [id number] 12/29/2024 R Mono Helder Adult general medica l examination Z00.00 ; Paresthesia R20.2 ; Iron deficiency anemia D50.9 ; Leg edema R60.0 ; Pulmonary fibrosis J84.10 ; Anxiety F41.9 ; Crohn disease K50.90 ; BMI 20.0-20.9, adult Z68.20 ; Osteopenia M85.80 ; History of TB (tuberculosis) Z86.11 ; Hypertension I10 and Hypertriglyceridemia E78.1 [facility] [address] [place] [id number] 01/11/2025 Daniel [place] Vitamin B 12 deficie ncy E53.8 [facility] [address] [place], [place] [id number] 01/19/2025 R Mono Helder Acute left ankle talita n M25.572 ; Eczema L30.9 and BMI 21.0-21.9, adult Z68.21 [facility] [address] [place], [place] [id number] 04/21/2024 R Mono Helder [facility] [address] [place], [place] [id number] 06/25/2024 R Mono Helder [facility] [address] [place] [id number] 06/25/2024 R Mono Helder [facility] [address] [place] [id number] 10/12/2024 R Mono Helder [facility] [address] [place] [id number] 12/17/2024 R Mono Helder [facility] [address] [place] [id number] 01/03/2025 R Mono Helder [facility] [address] [place], [place] [id number] 01/04/2025 R Mono Helder Anxiety F41.9 [facility] [address] [place] [id number] 01/11/2025 R Mono Helder Hypertension I10 [facility] [address] [place], [place] [id number] 01/21/2025 R Mono Helder [facility] [address] [place] [id number] 02/04/2025 R Mono Helder Hypertension I10 [facility] [address] [place], [place] [id number] 02/25/2025 R Mono Helder [facility] [address] [place] [id number] 03/08/2025 R Omno Helder [facility] [address] [place] [id number] 03/11/2025 R Mono Helder Assessments Encounter Date Diagnosis [...] assessment, Depression screening and Bladder control screening. 02/04/2025 Hypertension (ICD-10 - I10) 01/19/2025 BMI 21.0-21.9, adult (ICD-10 - Z68.21) [...] Date MEDICARE PART B [address] [address] [place] [address] [id number] PARVIN MALONE Self - patient is the insured [facility] [address] [place] [id number] PARVIN MALONE Self - patient is the [...] EGD 2019 Hospitalization History Reason Date(Month/Year) Hypertension- [facility] ER 12/28/2017
[2025-03-14 09:36] LABS: Adenovirus F 40/41, stool Not Detected (NotDetected); Clostridium Difficile A/B, PCR Not Detected (NotDetected); Cyclospora Cayetanesis Not Detected (NotDetected); Plesimonas Shigalloides, PCR Not Detected (NotDetected); Salmonella, PCR Not Detected (NotDetected); Shiga-like toxin E coli Not Detected (NotDetected); Shigella Enterovasive E coli Not Detected (NotDetected); Vibrio, PCR Not Detected (NotDetected); Yersinia Entercolitica, PCR Not Detected (NotDetected)
== END 2025-03-14 23:59 | disposition home or self-care (01) ==
LOC: LAB.DROPOF 09:19
PROVIDERS: PCP Family Medicine; Visit Provider Family Medicine
DX: R19.7 Diarrhea, unspecified (principal)
CPT/HCPCS: 87507

== ENCOUNTER 2025-07-02 16:44 | Emergency (ER) | payer MEDICARE, SELFPAY ==
--- OUTSIDE RECORDS SUMMARY | 2024-12-24 08:45 | XMS_ITS ---
Author Organization [facility] Address [address] [facility] [address] [place] [id number] Care Team Providers Care Scrap Shear Operator Name Role Phone Unique Pendleton Primary Care Provider Mar Paz Unavailable [phone] Allergies Allergen (clinical drug ingredient) Drug/Non Drug Allergy documented on EMR Reaction Allergy Type Onset Date Status RU TUSS DE (uncoded) Unknown Allergy Active sulfamethoxazole / trimethoprim Bactrim DS itching Drug Allergy Active nebivolol Bystolic weakness Drug Allergy Active cefuroxime Cefuroxime Axetil diarrhea Drug Allergy Active betamethasone / betamethasone acetate Celestone Soluspan Unknown Drug Allergy Active clonidine cloNIDine hallucinations Drug Allergy Ac tive erythromycin Erythromycin Unknown Drug Allergy A ctive clindamycin Clindamycin diarrhea Drug Allergy Act sadiq Penicillin Unknown Drug Allergy Active streptomycin Streptomycin Unknown Drug Allergy A ctive tetracycline Tetracycline Unknown Drug Allergy A ctive REASON FOR VISIT left foot and ankle Medications Medication SIG (Take, Route, Frequency, Duration) Notes Start Date End Date Status ALPRAZolam 0.5 MG 1 tab(s) orally once daily prn 06/25/2024 Active amLODIPine Besylate 10 MG 1 tab(s) orall y once a day; Duration: 90 days Active Flonase Allergy Relief 50 MCG/ACT 2 spray in each nostril Nasally Once a day; Duration: 30 day(s) 04/27/2024 Active hydroCHLOROthiazide 12.5 MG 1 tablet in the morning Orally Once a day; Duration: 30 day(s) 06/23/2024 Active azaTHIOprine 50 MG 1 tab(s) orally once a day; Duration: 30 day(s) 09/14/2020 Active Medrol 4 MG as directed Orally 12/24/2024 Active Diclofenac Active Tricor 48 MG 1 tab(s) orally once a day; Duration: 90 days Active tiZANidine HCl 2 MG 1 tablet at bedtime as needed Orally Once a day; Duration: 30 day(s) Active Vitamin D 50 MCG (2000 UT) 1 tablet Oral ly Once a day; Duration: 30 day(s) Active Benazepril HCl 20 MG 1 tab(s) orally once a day Active Magnesium Oxide 400 MG 1 tablet as neede d Orally Once a day 06/25/2024 Not-Taking Potassium Chloride ER 10 MEQ 1 cap(s) or ally 2 times a day Active Problems Problem Type SNOMED Code ICD Code Onset Dates Problem Status W/U Status Risk Notes Problem Chronic anemia (788661545) Chronic anemia (D64.9) Active confirmed Problem Crohn's disease of large bowel (4154474) Crohn's disease of large intestine without complications (K50.10) Active confirmed Vital Signs Weight 123.6 lbs 12/24/2024 Blood pressure systolic 124 mm Hg 12/25/19 25 Blood pressure diastolic 64 mm Hg 025 Heart Rate 79 /min 12/24/2024 Height 64 in 12/24/2024 BMI 21.21 kg/m2 12/24/2024 Encounters Encounter Location Date Provider Diagnosis [facility] [address] [id number] 12/24/2024 Mar Lloydlauren Acute left ankle talita n M25.572 ; BMI 21.0-21.9, adult Z68.21 ; Pulmonary fibrosis J84.10 ; Crohn disease K50.90 ; Chronic anemia D64.9 and Crohn's disease of large intestine without complications K50.10 Assessments Encounter Date Diagnosis (ICD Code) Assessment Notes Treatment Notes Treatment Clinical Notes Section Notes 12/24/2024 Acute left ankle pain (ICD-10 - M25.572) Patient would like to try steroids before getting x-rays. 12/24/2024 BMI 21.0-21.9, adult (ICD-10 - Z68.21) 12/24/2024 Pulmonary fibrosis (ICD-10 - J84.10) 12/24/2024 Crohn disease (ICD-10 - K50.90) 12/24/2024 Chronic anemia (ICD-10 - D64.9) 12/24/2024 Crohn's disease of large intestine without complications (ICD-10 - K50.10) Plan Of Treatment Medication Medication Name Sig Start Date Stop Date Notes Medrol 4 MG as directed Orally 12/24/2024 Treatment Notes Assessment Notes Acute left ankle pain Patient would like to try steroids before getting x-rays. Next Appt Details Follow Up: prn, Reason: Provider Name:Unique Stapleton et, 09/30/2025 02:00:00 PM, [address], [address], [place], [place], [phone], Progress Notes * Kj MALONEamandaDOB:1940 (84 yo F)Acc No.[id number] bmDOS:12/24/2024 Progress Notes Patient: Alejandra CHAIREZ Account Number:[id number] bm Provider: FABY Munson :1940 A ge:84 Y S ex:Female Date:12/24/2024 Address:[place] [address], [id number] Pcp:Unique Pendleton Subjective: * Chief Complaints: * 1 . Left foot and ankle. * HPI: A nkle/Foot: 84 year old female presents with c/o Pain P t presents today with c/o pain and swelling in the left ankle. Pt denies any injuries but sts that the swelling has gone down however she is still having pain. c/o Swelling. * ROS: D ERMATOLOGY: no R bob. n o H ricardo. G ASTROENTEROLOGY: no N ausea. n o V omiting. U ROLOGY: no D ifficulty urinating. n o B lood in urine. * Medical History: C rohns Disease, Hypertension, Anxiety, TB 1967, Anemia , Osteoporosis, Chronic Renal Insufficiency, Pulmonary Fibrosis, Macular Degeneration, Stage 3 Chronic Renal Failure, Bakers cyst, right knee by US. * Surgical History: S mall Bowel Resection , Cholecystectomy , C-scope 2016, C-scope and EGD 2019. * Hospitalization/Major Diagno stic Procedure: H ypertension- [facility] ER 12/28/2017. * Family History: F ather: , diagnosed with Hypertension, Stroke. M other: . C hildren: pt does not have children. 3 sister(s) . . sister with lung CA. * Social History: C URRENT TOBACCO USE S moking Status: Patient does NOT smoke. C affeine: yes, frequency:. Marital Status: . Past smoking status: no. Alcohol: no. * Medications: T aking Diclofenac , Taking tiZANidine HCl 2 MG Tablet 1 tablet at bedtime as needed Orally Once a day , Taking Vitamin D 50 MCG (2000 UT) Tablet 1 tablet Orally Once a day , Taking azaTHIOprine 50 MG Tablet 1 tab(s) orally once a day , Taking Flonase Allergy Relief 50 MCG/ACT Suspension 2 spray in each nostril Nasally Once a day , Taking hydroCHLOROthiazide 12.5 MG Tablet 1 tablet in the morning Orally Once a day , Taking ALPRAZolam 0.5 MG Tablet 1 tab(s) orally once daily prn , Taking amLODIPine Besylate 10 MG Tablet 1 tab(s) orally once a day , Taking Benazepril HCl 20 MG Tablet 1 tab(s) orally once a day , Taking Potassium Chloride ER 10 MEQ Capsule Extended Release 1 cap(s) orally 2 times a day , Taking Tricor 48 MG Tablet 1 tab(s) orally once a day , Not-Taking Magnesium Oxide 400 MG Tablet 1 tablet as needed Orally Once a day , Medication List reviewed and reconciled with the patient * Allergies: P enicillin, Streptomycin, Tetracycline, Erythromycin, RU TUSS DE, Celestone Soluspan, Cefuroxime Axetil: diarrhea, Bactrim DS: itching - Allergy, Clindamycin: diarrhea - Side Effects, cloNIDine: hallucinations - Side Effects, Bystolic: weakness - Side Effects. Objective: * Vitals: W t: 123.6, Temp: 97.9, BP: 124/64, HR: 79, Nurse: JOE, Ht: 64, BMI:21.21. * Examination: G eneral Examination: General Appearance: N AD. C hest: n ormal shape and expansion. H eart: R SR. L ungs: c lear to auscultation. E xtremities: m ild edema and tenderness along the lateral ligaments, no tenderness along the lateral malleolus, full ROM. Assessment: * Assessment: 1. A cute left ankle pain - M25.572 (Primary) 2 . B WI 21.0-21.9, adult - Z68.21 3 . P ulmonary fibrosis - J84.10 4 . C rohn disease - K50.90 5 . C hronic anemia - D64.9 6 . C rohn's disease of large intestine without complications - K50.10 Plan: * Treatment: * Procedure Codes: G 2211 Complex e/m visit add on, 1036F TOBACCO NON-USER, G8783 BP SCR PRFRM RCMDD DEFIND SCR INTVL, G8752 MOST RECENT SYSTOLIC BP < 140MM HG, G8754 MOST RECENT DIASTOLIC BP < 90MM HG * Follow Up: p rn * Images: Billing Information: * Visit Code: 63050 Office Visit, Est Pt., Level 3. * Procedure Codes: G2211 Complex e/m visit add on. 1036F TOBACCO NON-USER. G8783 BP SCR PRFRM RCMDD DEFIND SCR INTVL. G8752 MOST RECENT SYSTOLIC BP < 140MM HG. G8754 MOST RECENT DIASTOLIC BP < 90MM HG. * Electronic signature of FABY Jensen on 07/02/2025 at 05:05 PM EST Sign off status: Pending * Provider: FABY Munson Date: 0 12/24/2024 Generated for Osmar gilbert/Nicolle/Crystalitting on: 1 09/02/2024 05:05 PM EST History and Physical Notes * HPI (History of Present Illness) Category Sub-Category Detail Notes Category Not es Ankle/Foot Pain Pt presents toda y with c/o pain and swelling in the left ankle. Pt denies any injuries but sts that the swelling has gone down however she is still having pain Swelling Examination Category Sub-Category Detail Notes Category Not es General Examination Heart: RSR Lungs: clear to auscultatio n Extremities: mild edema and tende rness along the lateral ligaments, no tenderness along the lateral malleolus, full ROM General Appearance: NAD Chest: normal shape and exp ansion
--- OUTSIDE RECORDS SUMMARY | 2024-12-29 08:50 | XMS_ITS ---
Author Organization [facility] Address [address] [place] [id number] Care Team Providers Care Spa Consultant Name Role Phone Unique Pendleton Primary Care Provider [phone] Allergies Allergen (clinical drug ingredient) Drug/Non Drug [...] tetracycline Tetracycline Unknown Drug Allergy A ctive Results Component Value Reference Range Notes CBC Venipuncture (in house) Reviewed date:01/03/2025 10:10:06 PM Interpretation:HGB 10.1 Performing Lab: Notes/Report: HGB 10.1 wbc 5.8 3.5 - 10 lymph 18.7% 15 - 50 mid 7.0% 2 - 15 gran 74.3% 35 - 80 rbc 3.27 3.5 - 5.5 hgb 10.1 11.5 - 16.5 hct 30.4 35 - 55 mcv 92.9 75 - 100 mch 30.0 25 - 35 mchc 33.2 31 - 38 platlet 299 100 - 400 P-Vitamin B12 Reviewed date:01/03/2025 10:10:06 PM Interpretation:464 Performing Lab: Notes/Report: Test performed by [facility], [address] , [address], [place] [address] Sawyer Hyman MD, Lead Accountant CLIA: [id number] Vitamin B12 173 228-2670 pg/mL P-Comprehensive Metabolic Pa lyndsey (CMP) Reviewed date:01/03/2025 10:10:06 PM Interpretation:GFR 39 Performing Lab: Notes/Report: Test performed by [email or web address] [address] , [address], [place] [address] Sawyer Hyman MD, Lead Accountant CLIA: [id number] Sodium 143 135-145 mmol/L Potassium 4.0 3.5-5.3 mmol/L Chloride 103 97-108 mmol/L CO2 27 22-32 mmol/L Glucose 95 65-99 mg/dL BUN 27 8-23 mg/dL Creatinine 1.34 0.50-1.00 mg/dL Calcium 9.3 8.6-10.4 mg/dL eGFR by Creatinine 39 >59 mL/min/1.73m2 Protein 6.1 6.0-8.3 g/dL Albumin 4.0 3.5-5.3 g/dL Alkaline Phosphatase 62 35-121 IU/L ALT (SGPT) 11 <5-47 IU/L AST (SGOT) 17 <5-40 IU/L Bilirubin, Total 0.2 <0.2-1.2 mg/dL A/G Ratio 1.9 1.1-2.5 P-Magnesium Reviewed date:01/03/2025 10:10:06 PM Interpretation:1.4 Performing Lab: Notes/Report: Test performed by [email or web address] [address] , [address], [place] [address] Sawyer Hyman MD, Lead Accountant CLIA: [id number] Magnesium 1.4 1.6-2.4 mg/dL P-TSH Reviewed date:01/03/2025 10:10:06 PM Interpretation:3.24 Performing Lab: Notes/Report: Test performed by [email or web address] [address] , [address], [place] [address] Sawyer Hyman MD, Lead Accountant CLIA: [id number] TSH 3.24 0.43-5.25 mU/L REASON FOR VISIT 6 month check with Annual Wellness visit Medications Medication SIG (Take, Route, Frequency, Duration) Notes Start Date End Date Status Diclofenac Active tiZANidine HCl 2 MG 1 tablet at bedtime as needed Orally Once a day; Duration: 30 day(s) Active ALPRAZolam 0.5 MG 1 tab(s) orally once daily prn 06/25/2024 Active Vitamin D 50 MCG (2000 UT) 1 tablet Oral ly Once a day; Duration: 30 day(s) Active azaTHIOprine 50 MG 1 tab(s) orally once a day; Duration: 30 day(s) 09/14/2020 Active Potassium Chloride ER 10 MEQ 1 cap(s) or ally 2 times a day Active Tricor 48 MG 1 tab(s) orally once a day; Duration: 90 days Active hydroCHLOROthiazide 12.5 MG 1 tablet in the morning Orally Once a day 06/23/2024 Active amLODIPine Besylate 10 MG 1 tab(s) orall y once a day; Duration: 90 days Active Benazepril HCl 20 MG 1 tab(s) orally onc e a day Active Flonase Allergy Relief 50 MCG/ACT 2 spray in each nostril Nasally Once a day; Duration: 30 day(s) 04/27/2024 Active Problems Problem Type SNOMED Code ICD Code Onset Dates Problem Status W/U Status Risk Notes Problem Paresthesia (15370366) Paresthesia (R20.2) Active confirmed Problem Iron deficiency anemia (09880588) Iron deficiency anemia (D50.9) Active confirmed Vital Signs Weight 122 lbs 12/29/2024 Blood pressure systolic 164 mm Hg 12/30/19 25 Blood pressure diastolic 68 mm Hg 025 Heart Rate 82 /min 12/29/2024 Height 64 in 12/29/2024 BMI 20.94 kg/m2 12/29/2024 Encounters Encounter Location Date Provider Diagnosis [facility] [address] [facility] [address] [place], [place] [id number] 12/29/2024 Unique Pendleton Adult general medica l examination Z00.00 ; Paresthesia R20.2 ; Iron deficiency anemia D50.9 ; Leg edema R60.0 ; Pulmonary fibrosis J84.10 ; Anxiety F41.9 ; Crohn disease K50.90 ; BMI 20.0-20.9, adult Z68.20 ; Osteopenia M85.80 ; 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 12/29/2024 Paresthesia (ICD-10 - R20.2) 12/29/2024 Iron deficiency anem ia (ICD-10 - D50.9) 12/29/2024 Leg edema (ICD-10 - R60.0) 12/29/2024 Pulmonary fibrosis (ICD-10 - J84.10) 12/29/2024 Anxiety (ICD-10 - F41.9) 12/29/2024 Crohn disease (ICD-1 0 - K50.90) 12/29/2024 BMI 20.0-20.9, adult (ICD-10 - Z68.20) 12/29/2024 Osteopenia (ICD-10 - M85.80) 12/29/2024 History of TB (tuberculosis) (ICD-10 - Z86.11) 12/29/2024 Hypertension (ICD-10 - I10) 12/29/2024 Hypertriglyceridemia (ICD-10 - E78.1) Plan Of Treatment Medication Medication Name Sig Start Date Stop Date Notes ALPRAZolam 0.5 MG 1 tab(s) orally once daily prn hydroCHLOROthiazide 12.5 MG 1 tablet in the morning Orally Once a day 06/23/2024 Treatment Notes Assessment Notes Adult general medical examination Patien t instructed to return to office Annually for Annual Wellness Visits to include annual screenings of Pain assessment, Functional Ability assessment, Cognitive Ability assessment, Fall Risk assessment, Depression screening and Bladder control screening. Pending Test Test Name Order Date Bone density 12/29/2024 Next Appt Details Follow Up: 6 Months, Reason: Provider Name:Unique Arias, 09/30/2025 02:00:00 PM, [address] [facility], [address], [place], [id number], Progress Notes * Alejandar MALONEDOB:1940 (84 yo F)Acc No.nb bmDOS:12/29/2024 Annual Wellness Visit Patient: Alejandra CHAIREZ Account Number:nb bm Provider: Unique Pendleton M.D. :1940 A ge:84 Y S ex:Female Date:12/29/2024 Address:[facility] [address], [id number] Subjective: * Chief Complaints: * 1 . 6 month check with Annual Wellness visit. * HPI: H PI: Patient is here today for a scheduled 6 month check up and?a Medicare Annual Wellness Visit.. C ardiology: She brings in a diary of recent blood pressures which are showing consistently elevated systolic readings for the past couple weeks. She does admit to being under recent stress from her 's medical problems. Denies : Chest Pain. D enies : Short of Breath. D enies : Palpitations. Leg Edema m ild ankle swelling. She has a history of low magnesium diagnosed by her consultants in [place]. She tried taking a magnesium supplement but it caused diarrhea and aggravated her Crohn's disease. She has not had follow-up blood work. N eurology: She complains of intermittent numbness in her toes. * ROS: D ERMATOLOGY: no R bob. n o H ricardo. G ASTROENTEROLOGY: no N ausea. n o V omiting. n o D iarrhea.? O PTHALMOLOGY: Negative for d enies vision issues. U ROLOGY: no D ifficulty urinating. n [...] * Hospitalization/Major Diagno stic Procedure: H ypertension- [facility] 12/28/2017. * Family History: F ather: , diagnosed with Hypertension, Stroke. M other: . Emelyn mccrary: pt does not have children. 3 sister(s) [...] nostril Nasally Once a day , Taking ALPRAZolam 0.5 [...] tab(s) orally once a day , Not-Taking hydroCHLOROthiazide 12.5 MG Tablet 1 tablet in the morning Orally Once a day , Discontinued Medrol 4 MG Tablet Therapy Pack as directed Orally , Discontinued Magnesium Oxide 400 MG Tablet 1 tablet as needed Orally Once a day , Medication List reviewed and reconciled with the patient * Allergies: P enicillin, Streptomycin, Tetracycline, Erythromycin, RU TUSS DE, Celestone Soluspan, Cefuroxime Axetil: diarrhea, Bactrim DS: itching - Allergy, Clindamycin: diarrhea - Side Effects, cloNIDine: hallucinations - Side Effects, Bystolic: weakness - Side Effects. Objective: * Vitals: W t: 122, Temp: 000, BP: 164/68, HR: 82, Nurse: everett, Ht: 64, BMI:20.94. * Examination: C ardiology: General Appearance: p leasant, NAD. C arotid upstroke:?normal, no bruits. H eart sounds: R RR, normal S1, S2. M urmur, click , gallop:?none. L ungs: faint wheeze left mid lung. A bdomen: p ositive BS, soft, nontender. E xtremities: trace ankle edema bilaterally. * Physical Examination: G ENERAL: Pain Assessment: P ain level: - , on a scale of 0-10 (with 10 being extreme pain). F unctional Status Assessment: P atient response to question of how often physical health interferes with daily activities: ALmost never. Able to perform ADLs-including meal preparation, grocery shopping, housework, laundry, taking medications or handling finances. Cognitive Status: alert and oriented. Ambulation Status: Fully ambulatory. F all Risk Assessment: I ndependant in ambulation, adequate lighting in home. Patient has NOT fallen or had trouble walking within the past 12 months. D epression Screening: D enies depressed mood or anxiety. Describes emotional health as: calm. B ladder Control Screening: D enies problems. Assessment: * Assessment: 1. A dult general medical examination - Z00.00 (Primary) 2 . P aresthesia - R20.2 3 . I imelda deficiency anemia - D50.9 4 . L eg edema - R60.0 5 . P ulmonary fibrosis - J84.10 6 . A nxiety - F41.9 7. C rohn disease - K50.90 8 . B KS 20.0-20.9, adult - Z68.20 9 . O steopenia - M85.80 1 0. H istory of TB (tuberculosis) - Z86.11 1 1. H ypertension - I10 1 2. H ypertriglyceridemia - E78.1 Plan: * Treatment: 2. P aresthesia L AB: P-TSH (Collection Date & Time - 12/29/2024 01:26 PM) 3 .24 Value Reference Range T SH 3.24 0.43-5.25 - mU/L * Unique Pendleton 01/03/2025 10:09:44 PM EDT > See phone encounter 3.?Iron deficiency anemia?LAB: P-Vitamin B12 (Collection Date & Time - 12/29/2024 01:26 PM)?464* Value Reference Range V itamin B12 541 517-3139 - pg/mL * Unique Pendleton 01/03/2025 10:09:44 PM EDT > See phone encounter ?LAB: P-Comprehensive Metabolic Panel (CMP) (Collection Date & Time - 12/29/2024 01:26 PM)?GFR 39* Value Reference Range A /G Ratio 1.9 1.1-2.5 - * A lbumin 4.0 3.5-5.3 - g/dL * A lkaline Phosphatase 62 35-121 - IU/L * A LT (SGPT) 11 <5-47 - IU/L * A ST (SGOT) 17 <5-40 - IU/L * B ilirubin, Total 0.2 <0.2-1.2 - mg/dL * B UN 27 H 8-23 - mg/dL * C alcium 9.3 8.6-10.4 - mg/dL * C hloride 103 97-108 - mmol/L * C O2 27 22-32 - mmol/L * C reatinine 1.34 H 0.50-1.00 - mg/dL * G lucose 95 65-99 - mg/dL * P otassium 4.0 3.5-5.3 - mmol/L * S odium 143 135-145 - mmol/L * P rotein 6.1 6.0-8.3 - g/dL * e GFR by Creatinine 39 L >59 - mL/min/1.73m2 * Unique Pendleton 01/03/2025 10:09:44 PM EDT > See phone encounter 4.?Leg edema? Start hydroCHLOROthiazide Tablet, 12.5 MG, 1 tablet in the morning, Orally, Once a day, 90, Refills1.?LAB: P-Magnesium (Collection Date & Time - 12/29/2024 01:26 PM)?1.4* Value Reference Range M agnesium 1.4 L 1.6-2.4 - mg/dL * Unique Pendleton 01/03/2025 10:09:44 PM EDT > See phone encounter 5.?Anxiety? Refill ALPRAZolam Tablet, 0.5 MG, 1 tab(s), orally, once daily prn, 90, Refills 1.?? * Imaging: * I maging: Bone density * Labs: * L ab: CBC Venipuncture (in house) (Collection Date & Time - 12/29/2024) H GB 10.1 Value Reference Range w bc 5.8 3.5 - 10 * l ymph 18.7% 15 - 50 * m id 7.0% 2 - 15 * g ran 74.3% 35 - 80 * r bc 3.27 3.5 - 5.5 * h gb 10.1 11.5 - 16.5 * h ct 30.4 35 - 55 * m cv 92.9 75 - 100 * m ch 30.0 25 - 35 * m chc 33.2 31 - 38 * p latlet 299 100 - 400 * Marybeth Mast 12/29/2024 05:48: 59 PM EDT > Unique Pendleton 01/03/2025 10:09:44 PM EDT > See phone encounter * Procedure Codes: G 0439 ANNUAL WELLNESS VST; PPS SUBSQT VST, G2211 Complex e/m visit add on, 1090F PRES/ABSN URINE INCON ASSESS, 3288F FALL RISK ASSESSMENT DOCD, 1170F FXNL STATUS ASSESSED, 1159F MED LIST DOCD IN RCRD, 1003F LEVEL OF ACTIVITY ASSESS, 1036F TOBACCO NON-USER, 3017F COLORECTAL CA SCREEN DOC REV, 12677 CBC WITH AUTO DIFF, G8510 NEG SCR Depression PT NOT ELIG F/U/PLN DOC, G8420 BMI<30 AND >=22 CALC & DOCU, G8950 PREHTN/HTN BP DOC INDCD F/U DOC, G8753 MOST RECENT SYSTOLIC BP >= 140MM HG, G8754 MOST RECENT DIASTOLIC BP < 90MM HG * Preventive Medicine: Counseling: E motional health: D iscussed ways to improve socialization. B ladder control: M ethods of controlling or managing leakage of urine discussed. E xercise: Patient advised to start, increase or maintain level of exercise/physical activity. I njury prevention: F all prevention discussed. Discussed need for cane/walker. Potential trip hazards discussed. Immunizations: P neumococcal u p to date. I nfluenza u p to date. Screening / Special Tests: M ammogram R ecent history:04/03/2024. C olonoscopy R ecent history:01/16/2022 Dr. Vasquez, normal. B one mineral Density R ecent history: 05/13/2020 osteopenia. * Follow Up: 6 Months * Images: Billing Information: * Visit Code: 98415 Office Visit, Est Pt., Level 3. Modifiers: 25 * Procedure Codes: G0439 ANNUAL WELLNESS VST; PPS SUBSQT VST. G2211 Complex e/m visit add on. 1090F PRES/ABSN URINE INCON ASSESS. 3288F FALL RISK ASSESSMENT DOCD. 1170F FXNL STATUS ASSESSED. 1159F MED LIST DOCD IN RCRD. 1003F LEVEL OF ACTIVITY ASSESS. 1036F TOBACCO NON-USER. 3017F COLORECTAL CA SCREEN DOC REV. 44812 CBC WITH AUTO DIFF. G8510 NEG SCR Depression PT NOT ELIG F/U/PLN DOC. G8420 BMI<30 AND >=22 CALC & DOCU. G8950 PREHTN/HTN BP DOC INDCD F/U DOC. G8753 MOST RECENT SYSTOLIC BP >= 140MM HG. G8754 MOST RECENT DIASTOLIC BP < 90MM HG. * Electronic signature of Unique Pendleton MD on 07/02/2025 at 05:04 PM EST Sign off status: Pending * Provider: Unique Pendleton M.D. Date: 0 12/29/2024 Generated for Osmar gilbert/Nicolle/Crystalitting on: 1 09/02/2024 05:04 PM EST History and Physical Notes * HPI (History of Present Illness) Category Sub-Category Detail Notes Category Not es Cardiology Short of Breath She has a hi story of low magnesium diagnosed by her consultants in [place]. She tried taking a magnesium supplement but it caused diarrhea and aggravated her Crohn's disease. She has not had follow-up blood work. Chest Pain Palpitations Leg Edema mild ankle swelling HPI Patient is here today for a sche duled 6 month check up and a Medicare Annual Wellness Visit. Physical Examination Category Sub-Category Detail Notes Section Note s GENERAL Pain Assessment: Pain level: - , on a scale of 0-10 (with 10 being extreme pain) Functional Status Assessment: Patient re sponse to question of how often physical health interferes with daily activities: ALmost never. Able to perform ADLs-including meal preparation, grocery shopping, housework, laundry, taking medications or handling finances.Cognitive Status: alert and oriented.Ambulation Status: Fully ambulatory Fall Risk Assessment: Independant in amb ulation, adequate lighting in home. Patient has NOT fallen or had trouble walking within the past 12 months Depression Screening: Denies depressed m ood or anxiety. Describes emotional health as: calm Bladder Control Screening: Denies proble ms Examination Category Sub-Category Detail Notes Category Not es Cardiology Lungs: faint wheeze left mid lung Heart sounds: RRR, normal S1, S2 Abdomen: positive BS, soft, n ontender Carotid upstroke: normal, no bruits Extremities: trace ankle edema bi laterally Murmur, click , gallop: none General Appearance: pleasant, NAD
--- OUTSIDE RECORDS SUMMARY | 2025-01-11 08:20 | XMS_ITS ---
Author Organization [facility] Address [address] [facility] [address] [facility] [address] [place] [phone] Care Team Providers Care Director Of Labor Relations Name Role Phone Unique Pendleton Primary Care Provider Daniel Keys [phone] REASON FOR VISIT B 12 INJECTION Encounters Encounter Location Date Provider Diagnosis [facility] [address] [facility] [address] [facility] [address] [place] [phone] 01/11/2025 Daniel Keys Vitamin B 12 deficie ncy E53.8 Assessments Encounter Date Diagnosis (ICD Code) Assessment Notes Treatment Notes Treatment Clinical Notes Section Notes 01/11/2025 Vitamin B 12 deficiency (ICD-10 - E53.8) Plan Of Treatment Next Appt Details Provider Name:Unique Arias, 09/30/2025 02:00:00 PM, [address] [facility] [address] [facility], [address], [place], [phone], Medications Administered Medication Instructions Date of Administration Dosage Notes B-12 01/11/2025 1 mL Progress Notes * Alejandra MALONEDOB:1940 (84 yo F)Acc No.nb bmDOS:01/11/2025 Patient: Emelyn GALINDOKj ALMEIDAAlejandra Account Number:nb bm Provider: Dominik Keys M.D. :1940 A ge:84 Y S ex:Female Date:01/11/2025 Address[address], [id number] Pcp:Unique Pendleton Subjective: * Chief Complaints: * 1 . B 12 INJECTION. * Medical History: Objective: * Vitals: Assessment: * Assessment: 1. V itamin B 12 deficiency - E53.8 (Primary) Plan: * Treatment: * Therapeutic Injections: B-12 : 1 mL (Route: Intramuscular) given by JAMAR Willoughby on left gluteus (Vitamin B 12 deficiency) * Procedure Codes: J 3420 B-12, 32886 ADMINISTRATION OF INJECTION * Images: Billing Information: * Visit Code: * Procedure Codes: J3420 B-12. 20711 ADMINISTRATION OF INJECTION. * Electronic signature of Milena Keys MD on 07/02/2025 at 05:03 PM EST Sign off status: Pending * Provider: Dominik Keys M.D. Date: 0 01/11/2025 Generated for Osmar gilbert/Nicolle/Arthur on: 1 09/02/2024 05:03 PM EST
--- OUTSIDE RECORDS SUMMARY | 2025-01-19 10:15 | XMS_ITS ---
Author Organization [facility] Address [address] [place] [id number] Care Team Providers Care Accounting Technician Name Role Phone Unique Pendleton Primary Care Provider [phone] Allergies Allergen (clinical drug ingredient) Drug/Non Drug [...] ctive Results Component Value Reference Range Notes X ray : Ankle, left Reviewed date:01/21/2025 08:24:07 AM Interpretation:soft tissue swelling Performing Lab: Notes/Report: soft tissue swelling REASON FOR VISIT lt ankle Medications Medication SIG (Take, Route, Frequency, Duration) Notes Start Date End Date Status Mometasone Furoate 0.1 % 1 application Externally Once a day 01/19/2025 Active ALPRAZolam 0.5 MG 1 tab(s) orally once daily prn 01/04/2025 Active amLODIPine Besylate 10 MG 1 tab(s) orall y once a day; Duration: 90 days Active Potassium Chloride ER 10 MEQ 1 cap(s) or ally 2 times a day Active Tricor 48 MG 1 tab(s) orally once a day; Duration: 90 days Active Vitamin D 50 MCG (1999 UT) 1 tablet Oral ly Once a day; Duration: 30 day(s) Active azaTHIOprine 50 MG 1 tab(s) orally once a day; Duration: 30 day(s) 09/14/2020 Active tiZANidine HCl 2 MG 1 tablet at bedtime as needed Orally Once a day; Duration: 30 day(s) Active Flonase Allergy Relief 50 MCG/ACT 2 spray in each nostril Nasally Once a day; Duration: 30 day(s) 04/27/2024 Active Benazepril HCl 20 MG 1 tab(s) orally onc e a day Active hydroCHLOROthiazide 12.5 MG 1 tablet in the morning Orally Once a day 06/23/2024 Active Diclofenac Active Vital Signs Weight 125.2 lbs 01/19/2025 Blood pressure systolic 133 mm Hg 01/20/20 25 Blood pressure diastolic 74 mm Hg 025 Heart Rate 83 /min 01/19/2025 Height 64 in 01/19/2025 BMI 21.49 kg/m2 01/19/2025 Encounters Encounter Location Date Provider Diagnosis [facility] [address] [facility] [address] [facility] [address] [place] [id number] 01/19/2025 Unique Pendleton Acute left ankle talita n M25.572 ; Eczema L30.9 and BMI 21.0-21.9, adult Z68.21 Assessments Encounter Date Diagnosis (ICD Code) Assessment Notes Treatment Notes Treatment Clinical Notes Section Notes 01/19/2025 Acute left ankle pain (ICD-10 - M25.572) Recommend compression socks 01/19/2025 Eczema (ICD-10 - L30.9) 01/19/2025 BMI 21.0-21.9, adult (ICD-10 - Z68.21) Plan Of Treatment Medication Medication Name Sig Start Date Stop Date Notes Mometasone Furoate 0.1 % 1 application E xternally Once a day 01/19/2025 Treatment Notes Assessment Notes Acute left ankle pain Recommend compress ion socks Next Appt Details Follow Up: via phone to repo rt test results, Reason: Provider Name:Unique Arias, 09/30/2025 02:00:00 PM, [address] [facility] [address] [facility], [address], [place], [id number], Progress Notes * Alejandra MALONEDOB:1940 (84 yo F)Acc No.nb bmDOS:01/19/2025 Progress Notes Patient: Alejandra CHAIREZ Account Number:nb bm Provider: Unique Pendleton M.D. :1940 A ge:84 Y S ex:Female Date:01/19/2025 Address:[place] [address], [place] Subjective: * Chief Complaints: * 1 . Lt ankle. * HPI: A nkle/Foot: She returns with ongoing pain and swelling in her left foot and ankle. She was seen about a month ago and prescribed a Medrol Dosepak which she states helped temporarily. She localizes the pain over the lateral malleolus and distal fibula. She recalls no specific injury. States she even has pain when laying in bed at night. Swelling usually goes down overnight. D ermatology: She is requesting a refill on mometasone that she uses for flares of eczema. * ROS: D ERMATOLOGY: no R bob. n o H ricardo. G ASTROENTEROLOGY: no N ausea. n o V omiting. n o D iarrhea.? U ROLOGY: no D ifficulty urinating. n [...] * Hospitalization/Major Diagno stic Procedure: H ypertension- [facility] ER 12/28/2017. * Family History: F ather: , diagnosed with Hypertension, Stroke. M other: . C hermann: pt does not have children. 3 sister(s) . . sister with lung CA. * Social History: C URRENT TOBACCO USE S moking Status: Patient does NOT smoke. C affeine: yes, frequency:. Marital Status: . Past smoking status: no. Alcohol: no. * Medications: T aking hydroCHLOROthiazide 12.5 MG Tablet 1 tablet in the morning Orally Once a day , Taking Diclofenac , Taking tiZANidine HCl 2 MG [...] nostril Nasally Once a day , Taking Benazepril HCl 20 MG Tablet 1 tab(s) orally once a day , Taking Potassium Chloride ER 10 MEQ Capsule Extended Release 1 cap(s) orally 2 times a day , Taking Tricor 48 MG Tablet 1 tab(s) orally once a day , Taking ALPRAZolam 0.5 MG Tablet 1 tab(s) orally once daily prn , Taking amLODIPine Besylate 10 MG Tablet 1 tab(s) orally once a day , Medication List reviewed and reconciled with the patient * Allergies: P enicillin, Streptomycin, Tetracycline, Erythromycin, RU TUSS DE, Celestone Soluspan, Cefuroxime Axetil: diarrhea, Bactrim DS: itching - Allergy, Clindamycin: diarrhea - Side Effects, cloNIDine: hallucinations - Side Effects, Bystolic: weakness - Side Effects. Objective: * Vitals: W t: 125.2, Temp: 98.2, BP: 133/74, HR: 83, Nurse: pe, Ht: 64, BMI:21.49. * Examination: G eneral Examination: Extremities: T here is mild to moderate swelling and tenderness over the left distal fibula and lateral malleolus. Range of motion ankle is nearly full with no pain.. Assessment: * Assessment: 1. A cute left ankle pain - M25.572 (Primary) 2 . E czema - L30.9 ? 3 . B [place] 21.0-21.9, adult - Z68.21 Plan: * Treatment: Notes: Recommend compression socks??2.?Eczema? Start Mometasone Furoate Cream, 0.1 %, 1 application, Externally, Once a day, 15 gm.?? * Procedure Codes: G 2211 Complex e/m visit add on, G8420 BMI<30 AND >=22 CALC & DOCU, G8719 BP SCR PRFRM RCMDD DEFIND SCR INTVL, G8752 MOST RECENT SYSTOLIC BP < 140MM HG, G8754 MOST RECENT DIASTOLIC BP < 90MM HG, 1036F TOBACCO NON-USER * Follow Up: v ia phone to report test results * Images: Billing Information: * Visit Code: 06103 Office Visit, Est Pt., Level 3. * Procedure Codes: G2211 Complex e/m visit add on. G8420 BMI<30 AND >=22 CALC & DOCU. G8783 BP SCR PRFRM RCMDD DEFIND SCR INTVL. G8752 MOST RECENT SYSTOLIC BP < 140MM HG. G8754 MOST RECENT DIASTOLIC BP < 90MM HG. 1036F TOBACCO NON-USER. * Electronic signature of Unique Pendleton MD on 07/02/2025 at 05:05 PM EST Sign off status: Pending * Provider: Unique Pendleton M.D. Date: 0 01/19/2025 Generated for Osmar gilbert/Nicolle/Crystalitting on: 1 09/02/2024 05:05 PM EST History and Physical Notes * Examination Category Sub-Category Detail Notes Category Not es General Examination Extremities: There is mil d to moderate swelling and tenderness over the left distal fibula and lateral malleolus. Range of motion ankle is nearly full with no pain.
--- OUTSIDE RECORDS SUMMARY | 2025-02-25 08:45 | XMS_ITS ---
Author Organization [facility] Address [address] [place] [id number] Care Team Providers Care Coil Winder Hand Name Role Phone Unique Pendleton Primary Care Provider REASON FOR VISIT back pain Encounters Encounter Location Date Provider Diagnosis [facility] [address] [place] [phone] 02/25/2025 Unique Pendleton Plan Of Treatment Next Appt Details Provider Name:Unique Arias, 09/30/2025 02:00:00 PM, [address], [place], [phone], Progress Notes * Alejandra MALONEDOB:1940 (84 yo F)Acc No.nb bmDOS:02/25/2025 Progress Notes Patient: Emelyn FIDENCIO Alejandra Account Number:nb bm Provider: Unique Pendleton M.D. :1940 A ge:84 Y S ex:Female Date:02/25/2025 Address[address], [place] Subjective: * Chief Complaints: * 1 . Back pain. * Medical History: Objective: * Vitals: Assessment: Plan: * Treatment: * Images: Billing Information: * Visit Code: * Procedure Codes: * Electronic signature of Unique Pendleton MD on 07/02/2025 at 05:04 PM EST Sign off status: Pending * Provider: Unique Pendleton M.D. Date: 0 02/25/2025 Generated for Osmar gilbert/Nicolle/Arthur on: 1 09/02/2024 05:04 PM EST
--- OUTSIDE RECORDS SUMMARY | 2025-03-04 04:45 | XMS_ITS ---
Author Organization [facility] Address [address] [facility] [address] [facility] [address] [place] [id number] Care Team Providers Care Ux Specialist Name Role Phone Unique Pendleton Primary Care [...] Drug Allergy A ctive REASON FOR VISIT back spasms, possible dehydration Encounters Encounter Location Date Provider Diagnosis [facility] [address] [facility] [address] [facility] [address] [place] [id number] 03/04/2025 Unique Pendleton Plan Of Treatment Next Appt Details Provider Name:Unique Arias, 09/30/2025 02:00:00 PM, [address] [facility] [address] [facility], [address], [place], [id number], Progress Notes * Alejandra MALONEDOB:1940 (84 yo F)Acc No.nb bmDOS:03/04/2025 Progress Notes Patient: Alejandra CHAIREZ Account Number:nb bm Provider: Unique Pendleton M.D. DOB:1940 A ge:84 Y S ex:Female Date:03/04/2025 Address:[address] [id number] Subjective: * Chief Complaints: * 1 . Back spasms, possible dehydration. * ROS: D ERMATOLOGY: no R bob. [...] * Hospitalization/Major Diagno stic Procedure: H ypertension- [facility] ER 12/28/2017. * Family History: F ather: , diagnosed with Hypertension, Stroke. M other: . C hildren: pt does not have children. 3 sister(s) . . sister with lung CA. * Social History: C URRENT TOBACCO USE S moking Status: Patient does NOT smoke. C affeine: yes, frequency:. Marital Status: . Past smoking status: no. Alcohol: no. * Allergies: P enicillin, Streptomycin, Tetracycline, Erythromycin, RU TUSS DE, Celestone Soluspan, Cefuroxime Axetil: diarrhea, Bactrim DS: itching - Allergy, Clindamycin: diarrhea - Side Effects, cloNIDine: hallucinations - Side Effects, Bystolic: weakness - Side Effects. Objective: * Vitals: Assessment: Plan: * Treatment: * Images: Billing Information: * Visit Code: * Procedure Codes: * Electronic signature of Unique Pendleton MD on 07/02/2025 at 05:04 PM EST Sign off status: Pending * Provider: Unique Pendleton M.D. Date: 0 03/04/2025 Generated for Erici ofelia/Nicolle/eTransmitting on: 09/02/2024 05:04 PM EST
--- OUTSIDE RECORDS SUMMARY | 2025-05-03 08:40 | XMS_ITS ---
[facility] Address [address] [facility] [address] [place] [id number] Care Team Providers Care Scout Leaser Name Role Phone Unique Pendleton Primary Care Provider [phone] REASON FOR VISIT E17ctft Medications Medication SIG (Take, Route, Frequency, Duration) Notes Start Date End Date Status Potassium Chloride ER 10 MEQ 1 cap(s) or ally 2 times a day; Duration: 90 days Active Cyclobenzaprine HCl 5 MG 1 tablet Orally 3 times a day 02/25/2025 Active hydroCHLOROthiazide 12.5 MG 1 tablet in the morning Orally Once a day; Duration: 90 days 06/23/2024 Active traMADol HCl 50 MG 1 or 2 tabs Orally 3 times a day prn 03/09/2025 Active Diphenoxylate-Atropine 2.5-0.025 MG 1 tablet as needed Orally Four times a day 03/17/2025 Active amLODIPine Besylate 10 MG 1 tab(s) orall y once a day; Duration: 90 days Active Mometasone Furoate 0.1 % 1 application Externally Once a day 01/19/2025 Active Tricor 48 MG 1 tab(s) orally once a day; Duration: 90 days Active ALPRAZolam 0.5 MG 1 tab(s) orally once daily prn 01/04/2025 Active Benazepril HCl 20 MG 1 tab(s) orally onc e a day Active Diclofenac Active azaTHIOprine 50 MG 1 tab(s) orally once a day; Duration: 30 day(s) 09/14/2020 Active Flonase Allergy Relief 50 MCG/ACT 2 spray in each nostril Nasally Once a day; Duration: 30 day(s) 04/27/2024 Active tiZANidine HCl 2 MG 1 tablet at bedtime as needed Orally Once a day; Duration: 30 day(s) Active Vitamin D 50 MCG (1999 UT) 1 tablet Oral ly Once a day; Duration: 30 day(s) Active Encounters Encounter Location Date Provider Diagnosis [facility] [address] [facility] [address] [place] [id number] 05/03/2025 Unique Pendleton B12 deficiency E53.8 Assessments Encounter Date Diagnosis (ICD Code) Assessment Notes Treatment Notes Treatment Clinical Notes Section Notes 05/03/2025 B12 deficiency (ICD-10 - E53.8) Plan Of Treatment Next Appt Details Provider Name:Unique Arias, 09/30/2025 02:00:00 PM, [address] [facility], [address], [place], [id number], Medications Administered Medication Instructions Date of Administration Dosage Notes B-12 05/03/2025 1 mL Progress Notes * Alejandra MALONEDOB:1940 (84 yo F)Acc No.nb bmDOS:05/03/2025 Patient: Alejandra CHAIREZ Account Number:[id number] bm Provider: Unique Pendleton M.D. :1940 A ge:84 Y S ex:Female Date:05/03/2025 Address:[address] [place] [id number] Subjective: * Chief Complaints: * 1 . [id number]. * Medical History: * Medications: T aking Diclofenac , Taking tiZANidine HCl 2 MG Tablet 1 tablet at bedtime as needed Orally Once a day , Taking Vitamin D 50 MCG (1999 UT) Tablet 1 tablet Orally Once a day , Taking azaTHIOprine 50 MG Tablet 1 tab(s) orally once a day , Taking Flonase Allergy Relief 50 MCG/ACT Suspension 2 spray in each nostril Nasally Once a day , Taking Benazepril HCl 20 MG Tablet 1 tab(s) orally once a day , Taking Tricor 48 MG Tablet 1 tab(s) orally once a day , Taking ALPRAZolam 0.5 MG Tablet 1 tab(s) orally once daily prn , Taking amLODIPine Besylate 10 MG Tablet 1 tab(s) orally once a day , Taking Mometasone Furoate 0.1 % Cream 1 application Externally Once a day , Taking Potassium Chloride ER 10 MEQ Capsule Extended Release 1 cap(s) orally 2 times a day , Taking Cyclobenzaprine HCl 5 MG Tablet 1 tablet Orally 3 times a day , Taking traMADol HCl 50 MG Tablet 1 or 2 tabs Orally 3 times a day prn , Taking Diphenoxylate-Atropine 2.5-0.025 MG Tablet 1 tablet as needed Orally Four times a day , Taking hydroCHLOROthiazide 12.5 MG Tablet 1 tablet in the morning Orally Once a day , Medication List reviewed and reconciled with the patient Objective: * Vitals: Assessment: * Assessment: 1. B 12 deficiency - E53.8 (Primary) Plan: * Treatment: * Therapeutic Injections: B-12 : 1 mL (Route: Intramuscular) given by TOMAS Murrell on right deltoid (B12 deficiency) * Procedure Codes: J 3420 B-12, 56296 ADMINISTRATION OF INJECTION * Images: Billing Information: * Visit Code: * Procedure Codes: J3420 B-12. 61013 ADMINISTRATION OF INJECTION. * Electronic signature of Unique Pendleton MD on 07/02/2025 at 05:02 PM EST Sign off status: Pending * Provider: Unique Pendleton M.D. Date: Generated for Osmar gilbert/Nicolle/Arthur on: 09/02/2024 05:02 PM EST
--- OUTSIDE RECORDS SUMMARY | 2025-05-19 08:00 | XMS_ITS ---
[facility] Address [address] [facility] [address] [place] [id number] Care Team Providers Care Lipcoat Sprayer Name Role Phone Unique Pendleton Primary Care Provider REASON FOR VISIT B12 Medications Medication SIG (Take, Route, Frequency, Duration) Notes Start Date End Date Status Tricor 48 MG 1 tab(s) orally once a day; Duration: 90 days Active Cyclobenzaprine HCl 5 MG 1 tablet Orally 3 times a day 02/25/2025 Active traMADol HCl 50 MG 1 or 2 tabs Orally 3 times a day prn 03/09/2025 Active Diphenoxylate-Atropine 2.5-0.025 MG 1 tablet as needed Orally Four times a day 03/17/2025 Active hydroCHLOROthiazide 12.5 MG 1 tablet in the morning Orally Once a day; Duration: 90 days 06/23/2024 Active Benazepril HCl 20 MG 1 tab(s) orally onc e a day Active ALPRAZolam 0.5 MG 1 tab(s) orally once daily prn 01/04/2025 Active amLODIPine Besylate 10 MG 1 tab(s) orall y once a day; Duration: 90 days Active Mometasone Furoate 0.1 % 1 application Externally Once a day 01/19/2025 Active Potassium Chloride ER 10 MEQ 1 cap(s) or ally 2 times a day; Duration: 90 days Active azaTHIOprine 50 MG 1 tab(s) orally once a day; Duration: 30 day(s) 09/14/2020 Active Flonase Allergy Relief 50 MCG/ACT 2 spray in each nostril Nasally Once a day; Duration: 30 day(s) 04/27/2024 Active Diclofenac Active tiZANidine HCl 2 MG 1 tablet at bedtime as needed Orally Once a day; Duration: 30 day(s) Active Vitamin D 50 MCG (1999 UT) 1 tablet Oral ly Once a day; Duration: 30 day(s) Active Encounters Encounter Location Date Provider Diagnosis [facility] [address] [facility] [address] [facility] [address] [place] [id number] 05/19/2025 Unique Pendleton B12 deficiency E53.8 Assessments Encounter Date Diagnosis (ICD Code) Assessment Notes Treatment Notes Treatment Clinical Notes Section Notes 05/19/2025 B12 deficiency (ICD-10 - E53.8) Plan Of Treatment Next Appt Details Provider Name:Unique Arias, 09/30/2025 02:00:00 PM, [address] [facility] [address] [facility], [address], [place], [id number], Medications Administered Medication Instructions Date of Administration Dosage Notes B-12 05/19/2025 1 mL Progress Notes * Alejandra MALONEDOB:1940 (84 yo F)Acc No.nb bmDOS:05/19/2025 Patient: Alejandra CHAIREZ Account Number:nb bm Provider: Unique Pendleton M.D. :1940 A ge:84 Y S ex:Female Date:05/19/2025 Address:[address] [place] [facility] Subjective: * Chief Complaints: * 1 . B12. * Medical History: * Medications: T aking [...] morning Orally Once a day , Taking Tricor 48 MG Tablet 1 tab(s) orally once a day , Medication List reviewed and reconciled with the patient Objective: * Vitals: Assessment: * Assessment: 1. B 12 deficiency - E53.8 (Primary) Plan: * Treatment: * Therapeutic Injections: B-12 : 1 mL (Route: Intramuscular) given by TOMAS Murrell on left deltoid (B12 deficiency) * Procedure Codes: J 3420 B-12, 96648 ADMINISTRATION OF INJECTION * Images: Billing Information: * Visit Code: * Procedure Codes: J3420 B-12. 45723 ADMINISTRATION OF INJECTION. * Electronic signature of Unique Pendleton MD on 07/02/2025 at 05:04 PM EST Sign off status: Pending * Provider: Unique Pendleton M.D. Date: 07/19/2024 Generated for Osmar gilbert/Nicolle/Arthur on: 09/02/2024 05:04 PM EST
--- OUTSIDE RECORDS SUMMARY | 2025-06-24 07:55 | XMS_ITS ---
Author Organization [facility] Address [address] [facility] [address] [place] [id number] Care Team Providers Care Hydro Mechanic Name Role Phone Unique Pendleton Primary Care Provider REASON FOR VISIT B12 shot Medications Medication SIG (Take, Route, Frequency, Duration) Notes Start Date End Date Status azaTHIOprine 50 MG 1 tab(s) orally once a day; Duration: 30 day(s) 09/14/2020 Active Vitamin D 50 MCG (1999 UT) 1 tablet Oral ly Once a day; Duration: 30 day(s) Active tiZANidine HCl 2 MG 1 tablet at bedtime as needed Orally Once a day; Duration: 30 day(s) Active Diclofenac Active Flonase Allergy Relief 50 MCG/ACT 2 spray in each nostril Nasally Once a day; Duration: 30 day(s) 04/27/2024 Active Cyclobenzaprine HCl 5 MG 1 tablet Orally 3 times a day 02/25/2025 Active Tricor 48 MG 1 tab(s) orally once a day; Duration: 90 days Active hydroCHLOROthiazide 12.5 MG 1 tablet in the morning Orally Once a day; Duration: 90 days 06/23/2024 Active Diphenoxylate-Atropine 2.5-0.025 MG 1 tablet as needed Orally Four times a day 03/17/2025 Active traMADol HCl 50 MG 1 or 2 tabs Orally 3 times a day prn 03/09/2025 Active Mometasone Furoate 0.1 % 1 application Externally Once a day 01/19/2025 Active Potassium Chloride ER 10 MEQ 1 cap(s) or ally 2 times a day; Duration: 90 days Active amLODIPine Besylate 10 MG 1 tab(s) orall y once a day; Duration: 90 days Active ALPRAZolam 0.5 MG 1 tab(s) orally once daily prn 01/04/2025 Active Benazepril HCl 20 MG 1 tab(s) orally onc e a day Active Encounters Encounter Location Date Provider Diagnosis [facility] [address] [place] [id number] 06/24/2025 Unique Pendleton Vitamin B 12 deficiency E53.8 Assessments Encounter Date Diagnosis (ICD Code) Assessment Notes Treatment Notes Treatment Clinical Notes Section Notes 06/24/2025 Vitamin B 12 deficiency (ICD-10 - E53.8) Plan Of Treatment Next Appt Details Follow Up: as scheduled, Gris son: Provider Name:Unique Arias, 09/30/2025 02:00:00 PM, [address] [facility], [address], [place], [id number], Medications Administered Medication Instructions Date of Administration Dosage Notes B-12 06/24/2025 1 mL Progress Notes * Alejandra MALONEDOB:1940 (84 yo F)Acc No.nb bmDOS:06/24/2025 Patient: Alejandra CHAIREZ Account Number:nb bm Provider: Unique Pendleton M.D. :1940 A ge:84 Y S ex:Female Date:06/24/2025 Address:[address] [id number] Subjective: * Chief Complaints: * 1 . B12 shot. * Medical History: * Medications: T aking [...] : 1 mL (Route: Intramuscular) given by Tricia Marquez on right gluteus (Vitamin B 12 deficiency) * Procedure Codes: J 3420 B-12, 22709 ADMINISTRATION OF INJECTION * Follow Up: a s scheduled * Images: Billing Information: * Visit Code: * Procedure Codes: J3420 B-12. 52082 ADMINISTRATION OF INJECTION. * Electronic signature of Unique Pendleton MD on 07/02/2025 at 05:05 PM EST Sign off status: Pending * Provider: Unique Pendleton M.D. Date: 08/25/2024 Generated for Osmar gilbert/Nicolle/Arthur on: 09/02/2024 05:05 PM EST
--- OUTSIDE RECORDS SUMMARY | 2025-07-01 09:15 | XMS_ITS ---
Author Organization [facility] Address [address] [place] [id number] Care Team Providers Care Brim Curler Name Role Phone Unique Pendleton Primary Care [...] ctive Results Component Value Reference Range Notes P-Basic Metabolic Panel (BMP ) Reviewed date:07/02/2025 09:01:37 AM Interpretation:BUN 27, Creat 1.32, Nato 8.3, eGFR 39 Performing Lab: Notes/Report: Test performed by [employer], [facility] [address] [place] [address] , [address], [place] [address] Yandel Hernandez MD, PhD, [facility], [employer] CLIA: [id number] Sodium 139 135-145 mmol/L Potassium 4.0 3.5-5.3 mmol/L Chloride 103 97-108 mmol/L CO2 25 20-32 mmol/L Glucose 97 65-99 mg/dL BUN 27 8-23 mg/dL Creatinine 1.32 0.50-1.00 mg/dL Calcium 8.3 8.6-10.4 mg/dL eGFR by Creatinine 39 >59 mL/min/1.73m2 P-Magnesium Reviewed date:07/02/2025 09:01:37 AM Interpretation: Performing Lab: Notes/Report: Test performed by [facility] [address] [place] [address] , [address], [place] [address] Yandel Hernandez MD, PhD, [facility], [employer] CLIA: [id number] Magnesium 1.0 1.6-2.4 mg/dL REASON FOR VISIT check up, Needs labs & flu vaccine Medications Medication SIG (Take, Route, Frequency, Duration) Notes Start Date End Date Status Diphenoxylate-Atropine 2.5-0.025 MG 1 tablet as needed Orally Four times a day 03/17/2025 Not-Taking traMADol HCl 50 MG 1 or 2 tabs Orally 3 times a day prn 03/09/2025 Not-Taking Furosemide 20 MG 1 tablet Orally Once a day; Duration: 30 days 07/01/2025 Active Tricor 48 MG 1 tab(s) orally once a day; Duration: 90 days Active hydroCHLOROthiazide 12.5 MG 1 tablet in the morning Orally Once a day; Duration: 90 days 06/23/2024 Not-Taking amLODIPine Besylate 10 MG 1 tab(s) orall y once a day; Duration: 90 days Active ALPRAZolam 0.5 MG 1 tab(s) orally once daily prn 07/01/2025 Active Cyclobenzaprine HCl 5 MG 1 tablet Orally 3 times a day 02/25/2025 Not-Taking Potassium Chloride ER 10 MEQ 1 cap(s) or ally 2 times a day; Duration: 90 days Active Mometasone Furoate 0.1 % 1 application Externally Once a day 01/19/2025 Active Benazepril HCl 20 MG 1 tab(s) orally onc e a day Active Flonase Allergy Relief 50 MCG/ACT 2 spray in each nostril Nasally Once a day; Duration: 30 day(s) 04/27/2024 Active tiZANidine HCl 2 MG 1 tablet at bedtime as needed Orally Once a day; Duration: 30 day(s) Not-Taking azaTHIOprine 50 MG 1 tab(s) orally once a day; Duration: 30 day(s) 09/14/2020 Active Vitamin D 50 MCG (1999) 1 tablet Oral ly Once a day; Duration: 30 day(s) Not-Taking Diclofenac Not-Takin g Problems Problem Type SNOMED Code ICD Code Onset Dates Problem Status W/U Status Risk Notes Problem Hypomagnesemia (455007139) Hypomagnesemia (E83.42) Active confirmed Vital Signs Weight 120 lbs 07/01/2025 Blood pressure systolic 130 mm Hg 07/01/20 25 Blood pressure diastolic 70 mm Hg 025 Heart Rate 88 /min 07/01/2025 Height 64 in 07/01/2025 BMI 20.6 kg/m2 07/01/2025 Encounters Encounter Location Date Provider Diagnosis [facility] [address] [facility] [address] [place] [id number] 07/01/2025 Unique Pendleton Hypokalemia E87.6 ; Hypomagnesemia E83.42 ; Crohn disease K50.90 ; Osteopenia M85.80 ; Pulmonary fibrosis J84.10 ; Anxiety F41.9 and Leg edema R60.0 Assessments Encounter Date Diagnosis (ICD Code) Assessment Notes Treatment Notes Treatment Clinical Notes Section Notes 07/01/2025 Hypokalemia (ICD-10 - E87.6) 07/01/2025 Hypomagnesemia (ICD-10 - E83.42) 07/01/2025 Crohn disease (ICD-10 - K50.90) 07/01/2025 Osteopenia (ICD-10 - M85.80) 07/01/2025 Pulmonary fibrosis (ICD-10 - J84.10) 07/01/2025 Anxiety (ICD-10 - F41.9) 07/01/2025 Leg edema (ICD-10 - R60.0) Plan Of Treatment Medication Medication Name Sig Start Date Stop Date Notes Furosemide 20 MG 1 tablet Orally Once a day; Duration: 30 days 07/01/2025 ALPRAZolam 0.5 MG 1 tab(s) orally once daily prn 5 Next Appt Details Follow Up: 3 Months, Reason: Provider Name:Unique Arias, 09/30/2025 02:00:00 PM, [address] [facility], [address], [place], [place], [id number], Progress Notes * Alejandra MALONEDOB:1940 (84 yo F)Acc No.[id number] bmDOS:07/01/2025 Progress Notes Patient: Alejandra CHAIREZ Account Number:[id number] Provider: Unique Pendleton M.D. :1940 A ge:84 Y S ex:Female Date:07/01/2025 Address:[facility] [address], [id number] Subjective: * Chief Complaints: * 1 . Check up. 2. Needs labs & flu vaccine. * HPI: H PI: She comes in for follow-up related to a hospitalization in February for a lumbar compression fracture. She did not require surgery. She has recently completed a course of home physical therapy and is doing much better. She did lose a considerable amount of weight through the episode but is now regaining some weight. During her hospitalization she was found to be low on potassium and magnesium. She has not had follow-up labs since leaving the hospital. G astroenterology: Some weight loss may have been due to an exacerbation of her Crohn's and resulting diarrhea but this also has improved. * ROS: D ERMATOLOGY: no R bob. [...] Renal Failure, Bakers cyst, right knee by US, L2 compression fx - 02/2025. * Surgical History: S mall Bowel Resection , Cholecystectomy , C-scope 2016, C-scope and EGD 2019. * Hospitalization/Major Diagno stic Procedure: H ypertension- [facility] ER 12/28/2017. * Family History: F ather: , diagnosed with Hypertension, Stroke. M other: . C hilen: pt does not have children. 3 sister(s) . . sister with lung CA. * Social History: C URRENT TOBACCO USE S moking Status: Patient does NOT smoke. C affeine: yes, frequency:. Marital Status: . Past smoking status: no. Alcohol: no. * Medications: T aking azaTHIOprine 50 MG Tablet 1 tab(s) orally [...] tab(s) orally once a day , Not-Taking Diclofenac , Not-Taking tiZANidine HCl 2 MG Tablet 1 tablet at bedtime as needed Orally Once a day , Not-Taking Vitamin D 50 MCG (2000 UT) Tablet 1 tablet Orally Once a day , Not-Taking Cyclobenzaprine HCl 5 MG Tablet 1 tablet Orally 3 times a day , Not-Taking traMADol HCl 50 MG Tablet 1 or 2 tabs Orally 3 times a day prn , Not-Taking Diphenoxylate-Atropine 2.5-0.025 MG Tablet 1 tablet as needed Orally Four times a day , Not-Taking hydroCHLOROthiazide 12.5 MG [...] Side Effects. Objective: * Vitals: W t: 120, Temp: 98.0, BP: 130/70, HR: 88, Nurse: pe, Ht: 64, BMI:20.6. * Examination: G eneral Examination: General Appearance: N AD. Weight noted. H eart: R SR. L ungs: C oarse breath sounds. Few faint wheezes. No rales or rhonchi.. E xtremities: 1 + PTE. Assessment: * Assessment: 1. H ypokalemia - E87.6 (Primary) 2 . H ypomagnesemia - E83.42 ?3. C rohn disease - K50.90 4 . O steopenia - M85.80 5 .?Pulmonary fibrosis - J84.10 6 . A nxiety - F41.9 7 . L eg edema - R60.0 Plan: * Treatment: Value Reference Range B UN 27 H 8-23 - mg/dL * C alcium 8.3 L 8.6-10.4 - mg/dL * C hloride 103 97-108 - mmol/L * C O2 25 20-32 - mmol/L * C reatinine 1.32 H 0.50-1.00 - mg/dL * G lucose 97 65-99 - mg/dL * P otassium 4.0 3.5-5.3 - mmol/L * S odium 139 135-145 - mmol/L * e GFR by Creatinine 39 L >59 - mL/min/1.73m2 * Gela Coyne 07/02/2025 09 :00:54 AM EST > See phone encounter 2.?Hypomagnesemia?LAB: P-Magnesium (Collection Date & Time - 07/01/2025 01:29 PM)* Value Reference Range M agnesium 1.0 L 1.6-2.4 - mg/dL * Gela Coyne 07/02/2025 09 :00:54 AM EST > See phone encounter 3.?Anxiety? Refill ALPRAZolam Tablet, 0.5 MG, 1 tab(s), orally, once daily prn, 90, Refills 1.??4.?Leg edema? Start Furosemide Tablet, 20 MG, 1 tablet, Orally, Once a day, 30 days, 30 Tablet.?? * Follow Up: 3 Months * Images: Billing Information: * Visit Code: 68530 Office Visit, Est Pt., Level 4. * Procedure Codes: * Electronic signature of Unique Pendleton MD on 07/02/2025 at 05:03 PM EST Sign off status: Pending * Provider: Unique Pendleton M.D. Date: 09/01/2024 Generated for Osmar gilbert/Nicolle/eTransmitting on: 1 09/02/2024 05:03 PM EST History and Physical Notes * HPI (History of Present Illness) Category Sub-Category Detail Notes Category Not es HPI During her hosp italization she was found to be low on potassium and magnesium. She has not had follow-up labs since leaving the hospital. Examination Category Sub-Category Detail Notes Category Not es General Examination Heart: RSR Lungs: Coarse breath sounds . Few faint wheezes. No rales or rhonchi. Extremities: 1+ PTE General Appearance: NAD. Weight noted
--- NOTE | 2025-07-02 | ECG_ITS ---
APPROVED REPORT Exam: Resting ECG HR:93 bpm ECG Measurements Heart Rate 93 AXES HI 104 P -88 QRSd 90 QRS 28 QT 334 T 34 QTc 385 Conclusion JUNCTIONAL RHYTHM MODERATE ST DEPRESSION [0.05+ mV ST DEPRESSION] ABNORMAL ECG UNCONFIRMED REPORT Normal sinus rhythm. No STEMI Electronically signed by : TYRON HENDERSON, 07/02/2025 21:37:37
[2025-07-02 16:46] VITALS: BP 184/105; PULSE 113; RESP 16; TEMP 36.4; O2SAT 96; BMI 21.2
--- NOTE | 2025-07-02 16:52 | CT_ITS ---
PROCEDURE INFORMATION: Exam: CT Cervical Spine Without Contrast Exam date and time: 07/02/2025 5:51 PM Age: 84 years old Clinical indication: Injury or trauma; Fall; Blunt trauma; Additional info: Fall, head trauma TECHNIQUE: Imaging protocol: Computed tomography of the cervical spine without contrast. Radiation optimization: All CT scans at this facility use at least one of these dose optimization techniques: automated exposure control; mA and/or kV adjustment per patient size (includes targeted exams where dose is matched to clinical indication); or iterative reconstruction. COMPARISON: CT HEAD/BRAIN WO CON 07/02/2025 5:49 PM FINDINGS: Bones: Cervical vertebrae normal in height. No acute fracture. Normal alignment. Maintained craniocervical junction. Multilevel degenerative changes. Varying degrees of neural foraminal narrowing. Moderate C5-C6 spinal canal stenosis. Lungs: Lung apices are normal. Thyroid: 8 mm hypodense left thyroid nodule. Soft tissues: Unremarkable. IMPRESSION: No acute osseous findings. COMMENTS: Consistent with the [employer]'s Incidental Findings Committee white paper (J Am Rigo Radiol 2015): In patients aged 35 years and older with an incidental thyroid nodule equal to or greater than 1.[address], MRI or extrathyroidal US, further evaluation with dedicated thyroid US is recommended for patients with normal life expectancy and without comorbidities. For smaller nodules without suspicious features, no further evaluation or follow up is recommended.
--- NOTE | 2025-07-02 16:52 | CT_ITS ---
PROCEDURE INFORMATION: Exam: CT Head Without Contrast Exam date and time: 07/02/2025 5:49 PM Age: 84 years old Clinical indication: Injury or trauma; Fall; Blunt trauma (contusions or hematomas); Additional info: Fall, possible syncope TECHNIQUE: Imaging protocol: Computed tomography of the head without contrast. Radiation optimization: All CT scans at this facility use at least one of these dose optimization techniques: automated exposure control; mA and/or kV adjustment per patient size (includes targeted exams where dose is matched to clinical indication); or iterative reconstruction. COMPARISON: CT - SINUSWO CT sinus wo con 09/26/2018 1:32 PM FINDINGS: Brain: Small right frontoparietal subarachnoid hemorrhages limited to two sulci. No midline shift, or mass effect. Confluent hypodensities within the cerebral white matter most consistent with chronic small-vessel ischemic changes. Diffuse brain parenchymal volume loss. Cerebral ventricles: No ventriculomegaly. Paranasal sinuses: Visualized sinuses are unremarkable. No fluid levels. Mastoid air cells: Visualized mastoid air cells are well aerated. Bones: Unremarkable. No acute fracture. Soft tissues: Small right parieto-occipital scalp contusion. IMPRESSION: 1. Small right frontoparietal subarachnoid hemorrhages. 2. Small right parieto-occipital scalp contusion.
--- NOTE | 2025-07-02 16:54 | HMH.EDGENADL ---
Discharge Plan Disposition Patient Disposition: Xfer Other Prescriptions Prescriptions: No Action azathioprine 50 tablet 50 mg PO DAILY fenofibrate nanocrystallized 48 tablet 1 tab PO DAILY methocarbamol 750 mg tablet 750 mg PO Q8H Qty: 90 0RF potassium chloride 10 mEq capsule, extended release 10 meq PO BID Patient Comments: TAKE 1 CAPSULE TWICE DAILY alprazolam 0.5 mg tablet 0.5 mg PO DAILYP PRN (Reason: Anxiety) Patient Comments: TAKE 1 TABLET ONCE DAILY ASNEEDED amlodipine 10 mg tablet 10 mg PO DAILY Patient Comments: TAKE 1 TABLET ONCE DAILY benazepril 20 mg tablet 20 mg PO DAILY Patient Comments: TAKE 1 TABLET ONCE DAILY Referrals Follow up/Referrals: Edson Pendleton MD [Primary Care Provider, Medical] - See instructions Clinical Impressions Clinical Impression: Traumatic subarachnoid hemorrhage, Hypomagnesemia Stand Alone Forms Stand Alone Forms: Transfer Record - ED Print Language Print Language: Bangladeshi Discharge ED Provider: Camden Bush General Adult HPI General Chief complaint: Fall Stated complaint: fall Time Seen by Provider: 07/02/25 16:52 Mode of Arrival: EMS Source of Information: EMS Description of Symptoms (Recalled from ER Triage Doc. by RN): EMS reports a patient fall going up the steps into her house- approx 2 steps, and she hit her head on some plaster. Patient denies having any pain at this time. Patient with history of compression fractures in back. Patient alert and oriented, speech slightly forced at time. History of Present Illness HPI narrative: Dillan Ramos is an 84y female with a history of Crohn's disease status post partial colectomy, hypertension who presents to the emergency department via EMS after a fall. Per EMS, patient was approximately 2 steps up in the garage when at home health personnel said that she fell backwards and hit her head on the sheet rock, leaving an aide and indention in the wall. Patient states that she thinks that she missed the step while walking, causing her to fall, but does not fully remember details of the event. She does not think that she had any symptoms beforehand, denying any dizziness, chest pain, shortness of breath, lightheadedness. She states that she thinks she may have blacked out at some point. She denies any blood thinner use. She states that she has no weakness or numbness. She denies any pain elsewhere. Related Data Home Medications ?Medication ?Instructions ?Recorded ?Confirmed azathioprine 50 mg tablet 50 mg PO DAILY Cronhs 12/28/17 03/06/25 fenofibrate nanocrystallized 48 mg 1 tab PO DAILY Cholesterol 12/28/17 03/06/25 tablet alprazolam 0.5 mg tablet 0.5 mg PO DAILYP PRN Anxiety 03/06/25 03/06/25 amlodipine 10 mg tablet 10 mg PO DAILY 03/06/25 03/06/25 benazepril 20 mg tablet 20 mg PO DAILY 03/06/25 03/06/25 potassium chloride 10 mEq 10 meq PO BID 03/06/25 03/06/25 capsule,extended release Previous Rx's ?Medication ?Instructions ?Recorded methocarbamol 750 mg tablet 750 mg PO Q8H #90 tabs 03/01/25 Allergies Allergy/AdvReac Type Severity Reaction Status Date / Time erythromycin base Allergy Fever Verified 02/15/25 11:43 Penicillins Allergy Rash Verified 02/15/25 11:43 streptomycin Allergy Fever Verified 02/15/25 11:43 tetracycline Allergy Rash Verified 02/15/25 11:43 [facility] Disclaimer: The information contained in this section may have been updated after the patient was seen, as this information can be updated by other users. Medical History (Updated 07/02/25 @ 18:40 by Camden Bush MD) Crohn disease HTN (hypertension) Surgical History (Updated 03/05/25 @ 19:35 by Norman Humphreys MD) History of partial colectomy Social History Smoking Status: Former smoker alcohol intake: never current occupational status: retired Travel in the last 8 weeks?: None Have you lived/traveled outside US in past 30 days?: No Contact w/someone who lives/traveled outside US past 30 days?: No Exposure to someone with infectious disease in past 14 days?: No Do you have a fever (greater than 100.4 F or 38 C)?: No Have you tested positive for COVID-19?: No Exposed to someone with COVID-19 in past 14 days?: No Do you have a sore throat?: No Do you have a cough?: No Do you have any weakness?: No Do you have any diarrhea?: No Are you experiencing any unusual bleeding?: No Do you have any muscle aches/pain?: No Do you have any abdominal pain?: No Are you experiencing loss of taste or smell?: No Other Medical History Have you received the Flu Vaccine for this season: No Have you received the Pneumonia Vaccine: No ROS Obtained: Yes Systems reviewed as appropriate & no additional complaints except as documented Physical Exam General General appearance: alert and in no apparent distress Head Head exam: other (small hematoma to left posterior scalp without tenderness or skull fracture) Eye Eye exam: Present normal appearance, PERRL and EOMI ENT ENT exam: Present normal external ear exam Neck Neck exam: Present full ROM; Absent tenderness Chest Chest inspection: Present symmetric chest wall rise Respiratory Respiratory exam: Present normal lung sounds bilaterally; Absent respiratory distress, wheezes or stridor Cardiovascular Cardiovascular exam: Present normal rhythm and tachycardia Abdominal Exam Abdominal exam: Present soft; Absent distention, tenderness, guarding or rigidity Extremities Exam Extremities exam: Present normal inspection and other (Superficial skin tear over the left lateral elbow without tenderness or deformity); Absent tenderness Back Exam Back exam: Present normal inspection Neurological Exam Neurological exam: Present alert, oriented X3 (Answering all questions appropriately), CN II-XII intact and other (No focal neurological deficits. 5 out of 5 strength and sensation bilateral upper and lower extremities. No dysdiadochokinesia. Normal finger-nose testing. Normal vxrv-fl-dvyj testing. NIH of 0.); Absent motor sensory deficit Psychiatric Psychiatric exam: Present normal affect Skin Skin exam: Present warm and dry Medical Decision Making Medical Records Screening: Per USPSTF and CDC recommendations, given the prevalence of disease in our region, it is our hospital?s policy to screen for HIV and viral Hepatitis for all patients aged 18 and over and those with ongoing risk factors. Jak Inquiry Pt receiving controlled substance: No Vital Signs: 07/02/25 16:46 07/02/25 17:00 07/02/25 17:31 Temperature 97.6 F Temperature Source Oral Pulse Rate 107 H Pulse Rate [Right Brachial] 113 H Respiratory Rate 16 20 21 Blood Pressure 142/120 H 187/155 H Blood Pressure [Right Arm] 184/105 H Blood Pressure Mean [Right Arm] 131 Blood Pressure Source [Right Arm] Automatic Cuff Blood Pressure Position [Right Arm] Sitting 02 Sat by Pulse Oximetry 96 97 Oxygen Delivery Method Room Air Lab Data Lab Results 07/02/25 16:45: WBC 6.8, RBC 3.80 L, Hgb 12.2, Hct 37.2, MCV 97.9, MCH 32.1 H, MCHC 32.8, RDW 12.6, Plt Count 269, MPV 9.6, Neut % (Auto) 70.9, Lymph % (Auto) 14.3, Redwood % (Auto) 7.9, Eos % (Auto) 1.9, Baso % (Auto) 1.0, Neut # (Auto) 4.8, Lymph # (Auto) 1.0, Redwood # (Auto) 0.5, Eos # (Auto) 0.1, Baso # (Auto) 0.1, PT 10.9, INR 0.98, D-Dimer 5.84 H, Sodium 139, Potassium 4.3, Chloride 105, Carbon Dioxide 25, Anion Gap 13.3, BUN 32 H, Creatinine 1.40 H, Estimated Creat Clear 25, Estimated GFR 36 L, Est GFR ( Amer) 43 L, Glucose 103 H, Calcium 8.9, Magnesium 1.0 L, Total Bilirubin 0.5, AST 42 H, ALT 25, Alkaline Phosphatase 66, Troponin I < 0.01, Total Protein 7.7, Albumin 4.7, Globulin 3.0, Albumin/Globulin Ratio 1.6 07/02/25 17:36: Urine Color Yellow, Urine Appearance Clear, Urine pH 7.0, Ur Specific [place] 1.015, Urine Protein 2+ A, Urine Glucose (UA) Negative, Urine Ketones Negative, Urine Blood Trace-i, Urine Nitrate Negative, Urine Bilirubin Negative, Urine Urobilinogen 0.2, Ur Leukocyte Esterase Negative, Urine RBC 5-10, Urine WBC 3-5, Ur Squamous Epith Cells 3-5, Urine Bacteria 1+ 07/02/25 16:45 07/02/25 16:45 Orders (Tests/Meds): ED MEDICATIONS Generic Name Dose Route Start Last Admin Trade Name Freq PRN Reason Stop Dose Admin Magnesium Sulfate 2 gm in 50 mls @ 50 mls/hr 07/02/25 18:01 07/02/25 18:18 Magnesium Sulfate 2gm/50ml Premix IV 07/02/25 19:00 50 mls/hr ONCE ONE Administration Discontinued Medications Generic Name Dose Route Start Last Admin Trade Name Freq PRN Reason Stop Dose Admin Alprazolam 0.5 mg 07/02/25 17:03 07/02/25 17:12 Alprazolam 0.5mg Tablet PO 07/02/25 17:04 0.5 mg ONCE ONE Administration Iopamidol 70 ml 07/02/25 17:56 07/02/25 18:01 Iopamidol-370 (76%);100ml Bottle IV 07/02/25 17:57 70 ml ONCE ONE Administration Sodium Chloride 10 ml 07/02/25 17:56 07/02/25 18:01 Sodium Chloride 0.9% 10ml Syr (Rad Only) IV 07/02/25 17:57 10 ml ONCE ONE Administration Sodium Chloride 50 ml 07/02/25 17:56 07/02/25 18:00 0.9 % Sodium Chloride 50 Ml Vial IV 07/02/25 17:57 50 ml ONCE ONE Administration ORDERS Category Date Time Status CT cervical spine wo con Stat Cat Scan 07/02/25 16:[address] head/brain wo con Stat Cat Scan 07/02/25 16:52 Completed CTA Chest [CT angio chest PE protocol] Stat Cat Scan 07/02/25 17:43 Taken CXR --portable [XR chest portable] Stat Exams 07/02/25 17:02 Taken CBC w/Auto Diff [Complete Blood Count Auto Diff] Stat Lab 07/02/25 16:45 Completed CMP [Comprehensive Metabolic Panel] Stat Lab 07/02/25 16:45 Completed D-Dimer Stat Lab 07/02/25 16:45 Completed Magnesium Stat Lab 07/02/25 16:45 Completed PT INR [Prothrombin Time INR] Stat Lab 07/02/25 16:45 Completed Troponin I Q3H Lab 07/02/25 20:00 Ordered Troponin I Q3H Lab 07/02/25 23:00 Ordered Troponin I Stat Lab 07/02/25 16:45 Completed UA [Urinalysis and Microscopic] Stat Lab 07/02/25 17:36 Completed EKG Request [ECG Request] Stat Y 07/02/25 16:52 Ordered Medical Decision Narrative: Dillan Ramos is an 84y female with a history of Crohn's disease status post partial colectomy, hypertension who presents to the emergency department via EMS after a fall. Per EMS, patient was approximately 2 steps up in the garage when at home health personnel said that she fell backwards and hit her head on the sheet rock, leaving an aide and indention in the wall. Patient states that she thinks that she missed the step while walking, causing her to fall, but does not fully remember details of the event. She does not think that she had any symptoms beforehand, denying any dizziness, chest pain, shortness of breath, lightheadedness. She states that she thinks she may have blacked out at some point. She denies any blood thinner use. She states that she has no weakness or numbness. She denies any pain elsewhere. On arrival, patient is hypertensive and tachycardic but otherwise vitals within normal limits. She is alert and appropriately oriented, answering questions appropriately. She has no focal neurological deficits. NIH of 0. She is not complaining of any pain at this time. She has a small area of swelling to the left posterior scalp. No evidence of skull fracture. No midline cervical/thoracic/lumbar tenderness or step-off. No abdominal tenderness. No tenderness to her extremities. She has a superficial skin tear over her left lateral L elbow. Patient does state that she takes Xanax for anxiety and does feel anxious at this time. With nursing staff, she did have an episode of repetitive questioning and difficulty answering questions, however this seemed to have resolved by the time my evaluation. Differential diagnosis includes, but is not limited to: Mechanical fall resulting in head trauma, intracranial hemorrhage, cervical spine fracture, cardiac syncope, electrolyte derangement, metabolic derangement, pulmonary embolism, among others. The most morbid conditions were considered and workup was based on these. Will administer 0.5 mg of alprazolam orally, which is her home dose. Laboratory studies show no leukocytosis, no anemia, platelets within normal limits. D-dimer is elevated at 5.[address] PE to rule out pulmonary embolism. Coagulation studies within normal limits. Electrolytes within normal limits. Creatinine elevated but at baseline at 1.4, BUN 32. Magnesium is chronically low but lower than normal at 1.0. Will replace with 2 g of IV magnesium sulfate. Mildly elevated AST of 42 but liver enzymes bilirubin otherwise within normal limits. Troponin less than 0.01. Urinalysis with 2+ protein, 3-5 white blood cells, 1+ bacteria but leukocyte esterase and nitrate negative. Low concern for urinary tract infection at this time. CT imaging was interpreted by me personally. No cervical spine fracture or malalignment. Patient does have small right frontal parietal subarachnoid hemorrhage and a small right parieto-occipital scalp contusion. We discussed patient's case with radiology and they do feel that this is traumatic subarachnoid hemorrhage and low concern for aneurysmal bleeding. They did not recommend obtaining CTA imaging. Patient's CTA of the chest radiology termination is pending at this time. Upon my evaluation, I do not appreciate any saddle pulmonary embolism or segmental/subsegmental PE. No other acute findings are noted on my interpretation. Given patient's traumatic subarachnoid hemorrhage, I do feel that she would be best served at a trauma center with neurosurgery capabilities given she meets big 2 criteria. I discussed patient's case with the patient and she is agreeable to transfer at this time, however she does not wish to be flown. Her repeat blood pressure at this time is improved to 159/81. I do not feel that Cardene is indicated at this time. Given traumatic nature of patient's intracranial hemorrhage, I do not feel that seizure prophylaxis is indicated at this time. I then discussed patient's case with Dr. Rojas at the [facility] transfer center who accepted the patient for admission to the [facility] emergency department. Will arrange ground transport for patient. Critical Care Critical Care Time Critical Care Time: Yes Attestation: On 07/02/25, the high probability of a clinically significant, sudden or life threatening deterioration of the following system(s) required my full and direct attention, intervention and personal management. The time I documented below is in addition to time spent performing reported procedures but includes the following listed in this critical care notation. Total Time Total Critical Care Time: 35
[2025-07-02 17:00] VITALS: BP 142/120; PULSE 107; RESP 20; O2SAT 97
--- NOTE | 2025-07-02 17:02 | XR_ITS ---
PROCEDURE INFORMATION: Exam: XR Chest Exam date and time: 07/02/2025 5:57 PM Age: 84 years old Clinical indication: Injury or trauma; Fall; Blunt trauma (contusions or hematomas); Additional info: Fall vs syncope TECHNIQUE: Imaging protocol: Radiologic exam of the chest. Views: 1 view. COMPARISON: CT ANGIO CHEST PE PROTOCOL 07/02/2025 5:54 PM FINDINGS: Lungs: Unremarkable. No consolidation. Pleural spaces: Unremarkable. No pleural effusion. No pneumothorax. Heart/Mediastinum: Unremarkable. No cardiomegaly. Bones/joints: Unremarkable. IMPRESSION: No acute findings.
--- OUTSIDE RECORDS SUMMARY | 2025-07-02 17:03 | XMS_ITS | Encounter Summary ---
Author Organization [facility] Address [address] [place] [address] Care Team Providers Care Inhalation Therapist Name Role Phone System, Provider Not In MD Primary Care Provider Unavailable Sal Mar MD Unavailable [phone] Edson Pendleton MD Primary Care Provider [phone] Encounter Details Date Type Department Care Team (Late st Contact Info) Description 08/10/2021 Orders Only [facility] @ [facility] [address] [place] [address] Fidel Vasquez MD [address] [place], [place] [id number] Social History Tobacco Use Types Packs/Day Years [...] (PT) 9.6 9.0 - 11.4 SECONDS [facility] External INR - Internormal Ratio 0.9(L) 2.0 - 3.0 [facility] Comment: INR OF 2.0 TO [...] R esult [facility] [address] [place] [address], documented in this encounter Visit Diagnoses Not on filedocumented in this encounter Care Teams Inhalation Therapist Relationship Specialty Start Date End Date System, Provider Not In, [address] [place] [address] PCP - General Family Medicine 07/15/21 10/20/23 Edson Pendleton MD [address] [place] [address] PCP - General 10/21/23 Sal Mar MD [address] [place] [address] Medical Oncologist Hematology and Oncology 10/16/23 documented as of this encounter
--- OUTSIDE RECORDS SUMMARY | 2025-07-02 17:03 | XMS_ITS | Encounter Summary ---
Author Organization [facility] Address [address] [place] [address] Care Team Providers Care Rn School Name Role Phone System, Provider Not In MD Primary Care Provider Unavailable Sal Mar MD Unavailable [phone] Edson Pendleton MD Primary Care Provider [phone] Encounter Details Date Type Department Care Team (Late st Contact Info) Description 07/19/2022 Orders Only [facility] @ [facility] [address] [place] [address] Fidel Vasquez MD [address] [place], [place] [id number] Social History Tobacco Use Types Packs/Day Years [...] External Glucose 84 74 - 100 mg/dL [facility] External BUN 20 6 - 20 mg/dL [facility] External Creatinine Blood 1.18(H) 0.50 - 0.95 mg/dL [facility] External BUN/Creat Ratio 17 10 - 20 (calc) [facility] External Sodium 144 136 - 145 mmol/L [facility] External Potassium 4.2 3.4 - 5.0 mmol/L [facility] External Chloride 107 98 - 107 mmol/L [facility] External Carbon Dioxide 26 22 - 31 mmol/L [facility] External Anion Gap (AG) 11 7 - 25 (calc) [facility] External Calcium 9.2 8.6 - 10.2 mg/dL [facility] External Total Protein 6.6 6.4 - 8.3 g/dL [facility] External Albumin 4.2 3.5 - 5.2 g/dL [facility] External Globulin 2.4 1.5 - 4.5 g/dL (calc) [facility] External Albumin/Globulin Ratio 1.8 1.1 - 2.5 (calc) [facility] External Bilirubin Total 0.2 0.1 - 1.2 mg/dL [facility] External Alkaline Phosphatase 54 30 - 121 U/L [facility] External AST (SGOT) 20 0 - 32 U/L [facility] External ALT (SGPT) 12 0 - 33 U/L [facility] External Estimated GFR 46(A) >=60 [facility] Comment: NOTE New calculation for GFR (CKD-EPI 2020) is formulated without race adjustment factors at the recommendation of the National Kidney Foundation and [place] [employer]ph[employer]. This calculation has not been validated in women. For pediatric patients refer to https://www.kidney.org/professionals/KDOQI/gfr_calculatorPed 07/19/2022 3:24 PM EST 07/19/2022 3:56 PM EST us Fidel Vasquez MD LAB BLOOD ORDERABLES Final R esult [facility] [address] [place] [address], documented in this encounter Visit Diagnoses Not on filedocumented in this encounter Care Teams Rn School Relationship Specialty Start Date End Date System, Provider Not In, [address] [place] [address] PCP - General Family Medicine 07/15/21 10/20/23 Edson Pendleton MD [address] [place] [address] PCP - General 10/21/23 Sal Mar MD [address] [place] [address] Medical Oncologist Hematology and Oncology 10/16/23 documented as of this encounter
--- OUTSIDE RECORDS SUMMARY | 2025-07-02 17:03 | XMS_ITS | Encounter Summary ---
Author Organization [facility] Address [address] [place] [address] Care Team Providers Care Glaze Supervisor Name Role Phone System, Provider Not In MD Primary Care Provider Unavailable Sal Mar MD Unavailable [phone] Edson Pendleton MD Primary Care Provider [phone] Encounter Details Date Type Department Care Team (Late st Contact Info) Description 07/19/2022 Orders Only [facility] @ [facility] [address] [place] [address] Fidel Vasquez MD [address] [place], [place] [id number] Social History Tobacco Use Types Packs/Day Years [...] External Iron 93 37 - 145 ug/dL [facility] External Total Iron Binding Capacity 507(H) 250 - 450 ug/dL (calc) [facility] External Unsaturated Iron Binding Capacity 414(H) 112 - 347 ug/dL [facility] External Iron-Saturation% 18 15 - 50 % (calc) [facility] 07/19/2022 3:24 PM EST 07/19/2022 3:56 PM EST us Fidel Vasquez MD LAB BLOOD ORDERABLES Final R esult [facility] [address] [place] [address], documented in this encounter Visit Diagnoses Not on filedocumented in this encounter Care Teams Glaze Supervisor Relationship Specialty Start Date End Date System, Provider Not In, [address] [place] [address] PCP - General Family Medicine 07/15/21 10/20/23 Edson Pendleton MD [address] [place] [address] PCP - General 10/21/23 Sal Mar MD [address] [place] [address] Medical Oncologist Hematology and Oncology 10/16/23 documented as of this encounter
--- OUTSIDE RECORDS SUMMARY | 2025-07-02 17:03 | XMS_ITS | Encounter Summary ---
Author Organization [facility] Address [address] [place] [address] Care Team Providers Care Property Developer Name Role Phone System, Provider Not In MD Primary Care Provider Unavailable Sal Mar MD Unavailable Edson Pendleton MD Primary Care Provider [phone] Encounter Details Date Type Department Care Team (Late st Contact Info) Description 01/03/2022 Orders Only [facility] @ [facility] [address] [place] [address] Fidel Vasquez MD [address] [place], [place] [id number] Social History Tobacco Use Types Packs/Day Years [...] External [facility] 31 26 - 35 PG [facility] External [facility] 35 32 - [...] [facility] External Absolute Monocyte (Abs Assumption) 0.3 0.0 - 1.2 K/uL [facility] esult [facility] [address] [place] [id number], documented in this encounter Visit Diagnoses Not on filedocumented in this encounter Care Teams Property Developer Relationship Specialty Start Date End Date System, Provider Not In, [address] [place] [address] PCP - General Family Medicine 07/15/21 10/20/23 Edson Pendleton MD [address] [place] [address] PCP - General 10/21/23 Sal Mar MD [address] [place] [address] Medical Oncologist Hematology and Oncology 10/16/23 documented as of this encounter
--- OUTSIDE RECORDS SUMMARY | 2025-07-02 17:03 | XMS_ITS | Encounter Summary ---
Author Organization [facility] Address [address] [place] [address] Care Team Providers Care Latent Fingerprint Examiner Name Role Phone System, Provider Not In MD Primary Care Provider Unavailable Sal Mar MD Unavailable [phone] Edson Pendleton MD Primary Care Provider [phone] Encounter Details Date Type Department Care Team (Late st Contact Info) Description 01/03/2022 Orders Only [facility] @ [facility] [address] [place] [address] Fidel Vasquez MD [address] [place], [place] [id number] Social History Tobacco Use Types Packs/Day Years [...] External Ferritin 169(H) 13 - 157 ng/mL [facility] 01/03/2022 4:15 PM EDT 01/03/2022 5:13 PM EDT us Fidel Vasquez MD LAB BLOOD ORDERABLES Final R esult [facility] [address] [place] [address], documented in this encounter Visit Diagnoses Not on filedocumented in this encounter Care Teams Latent Fingerprint Examiner Relationship Specialty Start Date End Date System, Provider Not In, [address] [place] [address] PCP - General Family Medicine 07/15/21 10/20/23 Edson Pendleton MD [address] [place] [address] PCP - General 10/21/23 Sal Mar MD [address] [place] [address] Medical Oncologist Hematology and Oncology 10/16/23 documented as of this encounter
--- OUTSIDE RECORDS SUMMARY | 2025-07-02 17:03 | XMS_ITS | Encounter Summary ---
Author Organization [facility] Address [address] [place] [address] Care Team Providers Care Major Case Detective Name Role Phone System, Provider Not In MD Primary Care Provider Unavailable Sal Mar MD Unavailable [phone] Edson Pendleton MD Primary Care Provider [phone] Encounter Details Date Type Department Care Team (Late st Contact Info) Description 08/10/2021 Orders Only [facility] @ [facility] [address] [place] [address] Fidel Vasquez MD [address] [place], [place] [id number] Social History Tobacco Use Types Packs/Day Years [...] External WBC 5.0 3.8 - 10.8 K/uL [facility] External Red Blood Cell (RBC) 3.57(L) 3.80 - 5.20 M/uL [facility] External Hemoglobin 10.7(L) 12.0 - 16.0 G/DL [facility] External Hematocrit 31.8(L) 35.0 - 47.0 % [facility] External MCV 89 80 - 100 fL [facility] External MCH 30 26 - 35 PG [facility] External MCHC 34 32 - 36 G/DL [facility] External RDW 15.3(H) 11.0 - 15.0 % [facility] External Mean Platelet Volume 8.0 6.2 - 10.5 fL [facility] External Platelets 278 130 - 400 K/uL [facility] External Neutrophil# 3.6 1.6 - 8.4 K/uL [facility] External Lymphocyte# 0.8 0.4 - 5.1 K/uL [facility] External Absolute Monocyte (Abs [place]) 0.4 0.0 - 1.2 K/uL [facility] External Eosinophils# 0.1 0.0 - 0.8 K/uL [facility] External Baso# 0.1 0.0 - 0.3 K/uL [facility] External Neutrophils % 72.9 42.0 - 78.0 % [facility] External Lymphocyte % 15.6 11.0 - 47.0 % [facility] External Monocyte % 8.0 0.0 - 11.0 % [facility] External Eosinophil% 2.4 0.0 - 7.0 % [facility] External Basophil % 1.1 0.0 - 3.0 % [facility] External Nucleated RBC%-Auto 0.0 0.0 - 0.9 % [facility] External Nucleated RBC Absolute 0.00 Not Estab. K/uL [facility] 08/10/2021 2:45 PM EST 08/10/2021 7:49 PM EST us Fidel Vasquez MD LAB BLOOD ORDERABLES Final R esult [facility] [address] [place] [address], documented in this encounter Visit Diagnoses Not on filedocumented in this encounter Care Teams Major Case Detective Relationship Specialty Start Date End Date System, Provider Not In, [address] [place] [address] PCP - General Family Medicine 07/15/21 10/20/23 Edson Pendleton MD [address] [place] [address] PCP - General 10/21/23 Sal Mar MD [address] [place] [address] Medical Oncologist Hematology and Oncology 10/16/23 documented as of this encounter
--- OUTSIDE RECORDS SUMMARY | 2025-07-02 17:03 | XMS_ITS | Encounter Summary ---
Author Organization [facility] Address [address] [place] [address] Care Team Providers Care Outdoor Education Teacher Name Role Phone System, Provider Not In MD Primary Care Provider Unavailable Sal Mar MD Unavailable [phone] Edson Pendleton MD Primary Care Provider [phone]- [phone] Encounter Details Date Type Department Care Team (Late st Contact Info) Description 11/09/2021 Orders Only [facility] at [facility] [address] [place] [address] Sal Mar MD [address] [address] Social History Tobacco Use Types [...] External Iron 32(L) 37 - 145 ug/dL [facility] External Total Iron Binding Capacity 524(H) 250 - 450 ug/dL (calc) [facility] External Unsaturated Iron Binding Capacity 492(H) 112 - 347 ug/dL [facility] External Iron-Saturation% 6(L) 15 - 50 % (calc) [facility] 11/09/2021 3:53 PM EDT 11/09/2021 6:04 PM EDT us Sal Mar MD LAB BLOOD ORDERABLES Final Res ult [facility] [address] [place] [address], documented in this encounter Visit Diagnoses Not on filedocumented in this encounter Care Teams Outdoor Education Teacher Relationship Specialty Start Date End Date System, Provider Not In, [address] [place] [address] PCP - General Family Medicine 07/15/21 10/20/23 Edson Pendleton MD [address] [place] [address] PCP - General 10/21/23 Sal Mar MD [address] [place] [id number] Medical Oncologist Hematology and Oncology 10/16/23 documented as of this encounter
--- OUTSIDE RECORDS SUMMARY | 2025-07-02 17:03 | XMS_ITS | Encounter Summary ---
Author Organization [facility] Address [address] [place] [address] Care Team Providers Care Machinist Set Up Name Role Phone System, Provider Not In MD Primary Care Provider Unavailable Sal Mar MD Unavailable [phone] Edson Pendleton MD Primary Care Provider [phone] Encounter Details Date Type Department Care Team (Late st Contact Info) Description 11/09/2021 Orders Only [facility] at [facility] [address] [place] [address] Sal Mar MD [address] [address] Social History Tobacco Use Types [...] External Glucose 89 74 - 100 mg/dL [facility] External BUN 17 6 - 20 mg/dL [facility] External Creatinine Blood 1.47(H) 0.50 - 0.95 mg/dL [facility] External BUN/Creat Ratio 12 10 - 20 (calc) [facility] External Sodium 141 136 - 145 mmol/L [facility] External Potassium 3.7 3.4 - 5.0 mmol/L [facility] External Chloride 105 98 - 107 mmol/L [facility] External Carbon Dioxide 24 22 - 31 mmol/L [facility] External Anion Gap (AG) 12 7 - 25 (calc) [facility] External Calcium 8.9 8.6 - 10.2 mg/dL [facility] External Total Protein 6.5 6.4 - 8.3 g/dL [facility] External Albumin 4.3 3.5 - 5.2 g/dL [facility] External Globulin 2.2 1.5 - 4.5 g/dL (calc) [facility] External Albumin/Globulin Ratio 2.0 1.1 - 2.5 (calc) [facility] External Bilirubin Total 0.2 0.1 - 1.2 mg/dL [facility] External Alkaline Phosphatase 57 30 - 121 U/L [facility] External AST (SGOT) 27 0 - 32 U/L [facility] External ALT (SGPT) 17 0 - 33 U/L [facility] External EGFR (If AFR/AM) 38(A) >=60 [facility] External Estimated GFR 33(A) >=60 [facility] Comment: NOTE Chronic kidney disease is defined as kidney damage for more than 3 months or a GFR less than 60 mL/min/1.73 m2 for greater than 3 months. This calculation has not been validated in women. For pediatric patients refer to [employer] https://www.kidney.org/professionals/KDOQI/gfr_calculatorPed 11/09/2021 3:53 PM EDT 11/09/2021 6:04 PM EDT Sal Mar MD LAB BLOOD ORDERABLES Final Res ult [facility] [address] [place] [address], documented in this encounter Visit Diagnoses Not on filedocumented in this encounter Care Teams Machinist Set Up Relationship Specialty Start Date End Date System, Provider Not In, [address] [place] [address] PCP - General Family Medicine 07/15/21 10/20/23 Edson Pendleton MD [address] [facility] [address] [place] [id number] PCP - General 10/21/23 Sal Mar MD [address] [place] [address] Medical Oncologist Hematology and Oncology 10/16/23 documented as of this encounter
--- OUTSIDE RECORDS SUMMARY | 2025-07-02 17:03 | XMS_ITS | Encounter Summary ---
Author Organization [facility] Address [address] [place] [address] Care Team Providers Care Dag Coater Name Role Phone System, Provider Not In MD Primary Care Provider Unavailable Sal Mar MD Unavailable [phone] Edson Pendleton MD Primary Care Provider [phone] Encounter Details Date Type Department Care Team (Late st Contact Info) Description 07/19/2022 Orders Only [facility] @ [facility] [address] [place] [address] Fidel Vasquez MD [address] [place], [place] [id number] Social History Tobacco Use Types Packs/Day Years [...] External WBC 4.0 3.8 - 10.8 K/uL [facility] External Red Blood Cell (RBC) 3.72(L) 3.80 - 5.20 M/uL [facility] External Hemoglobin 11.3(L) 12.0 - 16.0 G/DL [facility] External Hematocrit 32.9(L) 35.0 - 47.0 % [facility] External MCV 89 80 - 100 fL [facility] External MCH 31 26 - 35 PG [facility] External MCHC 34 32 - 36 G/DL [facility] External RDW 15.7(H) 11.0 - 15.0 % [facility] External Mean Platelet Volume 7.4 6.2 - 10.5 fL [facility] External Platelets 263 130 - 400 K/uL [facility] External Neutrophil# 2.6 1.6 - 8.4 K/uL [facility] External Lymphocyte# 0.9 0.4 - 5.1 K/uL [facility] External Absolute Monocyte (Abs [place]) 0.3 0.0 - 1.2 K/uL [facility] External Eosinophils# 0.1 0.0 - 0.8 K/uL [facility] External Baso# 0.1 0.0 - 0.3 K/uL [facility] External Neutrophils % 66.0 42.0 - 78.0 % [facility] External Lymphocyte % 21.4 11.0 - 47.0 % [facility] External Monocyte % 8.1 0.0 - 11.0 % [facility] External Eosinophil% 3.2 0.0 - 7.0 % [facility] External Basophil % 1.3 0.0 - 3.0 % [facility] External Nucleated RBC%-Auto 0.2 0.0 - 0.9 % [facility] External Nucleated RBC Absolute 0.01 Not Estab. K/uL [facility] 07/19/2022 3:24 PM EST 07/19/2022 3:49 PM EST us Fidel Vasquez MD LAB BLOOD ORDERABLES Final R esult [facility] [address] [place] [address], documented in this encounter Visit Diagnoses Not on filedocumented in this encounter Care Teams Dag Coater Relationship Specialty Start Date End Date System, Provider Not In, [address] [place] [address] PCP - General Family Medicine 07/15/21 10/20/23 Edson Pendleton MD [address] [place] [address] PCP - General 10/21/23 Sla Mar MD [address] [place] [address] Medical Oncologist Hematology and Oncology 10/16/23 documented as of this encounter
--- OUTSIDE RECORDS SUMMARY | 2025-07-02 17:03 | XMS_ITS | Encounter Summary ---
Author Organization [facility] Address [address] [place] [address] Care Team Providers Care Yard General Car Supervisor Name Role Phone System, Provider Not In MD Primary Care Provider Unavailable Sal Mar MD Unavailable [phone] Edson Pendleton MD Primary Care Provider [phone] Encounter Details Date Type Department Care Team (Late st Contact Info) Description 08/10/2021 Orders Only [facility] @ [facility] [address] [place] [address] Fidel Vasquez MD [address] [place], [place] [id number] Social History Tobacco Use Types Packs/Day Years [...] External Ferritin 6(L) 13 - 157 ng/mL [facility] 08/10/2021 2:45 PM EST 08/10/2021 7:55 PM EST Fidel Vasquez MD LAB BLOOD ORDERABLES Final R esult [facility] [address] [place] [address], documented in this encounter Visit Diagnoses Not on filedocumented in this encounter Care Teams Yard General Car Supervisor Relationship Specialty Start Date End Date System, Provider Not In, [address] [place] [address] PCP - General Family Medicine 07/15/21 10/20/23 Edson Pendleton MD [address] [place] [address] [address] [place] [address] PCP - General 10/21/23 Sal Mar MD [address] [place] [id number] Medical Oncologist Hematology and Oncology 10/16/23 documented as of this encounter
--- OUTSIDE RECORDS SUMMARY | 2025-07-02 17:03 | XMS_ITS | Encounter Summary ---
Author Organization [facility] Address [address] [place] [address] Care Team Providers Care Pyrometer Temperature Regulator Name Role Phone System, Provider Not In MD Primary Care Provider Unavailable Sal Mar MD Unavailable [phone] Edson Pendleton MD Primary Care Provider [phone] Encounter Details Date Type Department Care Team (Late st Contact Info) Description 08/10/2021 Orders Only [facility] @ [facility] [address] [place] [address] Fidel Vasquez MD [address] [place], [place] [id number] Social History Tobacco Use Types Packs/Day Years [...] External Iron 65 37 - 145 ug/dL [facility] External Total Iron Binding Capacity 555(H) 250 - 450 ug/dL (calc) [facility] External Unsaturated Iron Binding Capacity 490(H) 112 - 347 ug/dL [facility] External Iron-Saturation% 12(L) 15 - 50 % (calc) [facility] 08/10/2021 2:45 PM EST 08/10/2021 7:55 PM EST us Fidel Vasquez MD LAB BLOOD ORDERABLES Final R esult [facility] [address] [place] [address], documented in this encounter Visit Diagnoses Not on filedocumented in this encounter Care Teams Pyrometer Temperature Regulator Relationship Specialty Start Date End Date System, Provider Not In, [address] [place] [address] PCP - General Family Medicine 07/15/21 10/20/23 Edson Pendleton MD [address] [place] [address] PCP - General 10/21/23 Sal Mar MD [address] [place] [id number] Medical Oncologist Hematology and Oncology 10/16/23 documented as of this encounter
--- OUTSIDE RECORDS SUMMARY | 2025-07-02 17:03 | XMS_ITS | Encounter Summary ---
Author Organization [facility] Address [address] [place] [address] Care Team Providers Care Facing Slitter Name Role Phone System, Provider Not In MD Primary Care Provider Unavailable Sal Mar MD Unavailable [phone] Edson Pendleton MD Primary Care Provider [phone] Encounter Details Date Type Department Care Team (Late st Contact Info) Description 01/08/2022 Orders Only [facility] @ [facility] [address] [place] [address] Fidel Vasquez MD [address] [place], [place] [address] Social History Tobacco Use Types Packs/Day Years [...] PM EDT) External Pancreatic Elastase 287 mcg/g [facility] Comment: Adult and Pediatric Reference Ranges for Pancreatic Elastase-1: Normal: >200 mcg/g Moderate Pancreatic Insufficiency: 100-200 mcg/g Severe Pancreatic Insufficiency: <100 mcg/g Elastase-1 (E-1) assay results are expressed in mcg/g, which represent mcg E1/g feces. It is not necessary to interrupt enzyme substitution therapy. TEST PERFORMED AT: [facility] [address] [place] [address] LI CALERO MD,PHD,SEBLE 01/08/2022 12:3 8 PM EDT 01/08/2022 12:45 PM EDT Fidel Vasquez MD LAB BODY FLUIDS AND STOOLS O RDERABLES Final Result [facility] [address] [place] [address], documented in this encounter Visit Diagnoses Not on filedocumented in this encounter Care Teams Facing Slitter Relationship Specialty Start Date End Date System, Provider Not In, [address] [place] [address] PCP - General Family Medicine 07/15/21 10/20/23 Edson Pendleton MD [address] [facility] [address] [facility] [address] [place] [address] PCP - General 10/21/23 Sal Mar MD [address] [place] [address] Medical Oncologist Hematology and Oncology 10/16/23 documented as of this encounter
--- OUTSIDE RECORDS SUMMARY | 2025-07-02 17:03 | XMS_ITS | Encounter Summary ---
Author Organization [facility] Address [address] [place] [address] Care Team Providers Care Hr Manager Name Role Phone System, Provider Not In MD Primary Care Provider Unavailable Sal Mar MD Unavailable [phone] Edson Pendleton MD Primary Care Provider [phone] Encounter Details Date Type Department Care Team (Late st Contact Info) Description 02/08/2022 Orders Only [facility] [address] [place] [address] Sal Mar MD [address] [address] Social History Tobacco Use Types [...] External WBC 4.3 3.8 - 10.8 K/uL [facility] External Red Blood Cell (RBC) 3.61(L) 3.80 - 5.20 M/uL [facility] External Hemoglobin 11.5(L) 12.0 - 16.0 G/DL [facility] External Hematocrit 32.7(L) 35.0 - 47.0 % [facility] External MCV 91 80 - 100 fL [facility] External MCH 32 26 - 35 PG [facility] External MCHC 35 32 - 36 G/DL [facility] External RDW 14.1 11.0 - 15.0 % [facility] External Mean Platelet Volume 7.1 6.2 - 10.5 fL [facility] External Platelets 216 130 - 400 K/uL [facility] External Neutrophil# 3.2 1.6 - 8.4 K/uL [facility] External Lymphocyte# 0.6 0.4 - 5.1 K/uL [facility] External Absolute Monocyte (Abs [place]) 0.4 0.0 - 1.2 K/uL [facility] External Eosinophils# 0.1 0.0 - 0.8 K/uL [facility] External Baso# 0.1 0.0 - 0.3 K/uL [facility] External Neutrophils % 74.5 42.0 - 78.0 % [facility] External Lymphocyte % 13.0 11.0 - 47.0 % [facility] External Monocyte % 8.8 0.0 - 11.0 % [facility] External Eosinophil% 2.4 0.0 - 7.0 % [facility] External Basophil % 1.3 0.0 - 3.0 % [facility] External Nucleated RBC%-Auto 0.1 0.0 - 0.9 % [facility] External Nucleated RBC Absolute 0.00 Not Estab. K/uL [facility] 02/08/2022 2:16 PM EDT 02/08/2022 2:22 PM EDT us Sal Mar MD LAB BLOOD ORDERABLES Final Res ult [facility] [address] [place] [address], documented in this encounter Visit Diagnoses Not on filedocumented in this encounter Care Teams Hr Manager Relationship Specialty Start Date End Date System, Provider Not In, [address] [place] [address] PCP - General Family Medicine 07/15/21 10/20/23 Edson Pendleton MD [address] [place] [address] PCP - General 10/21/23 Sal Mar MD [address] [place] [address] Medical Oncologist Hematology and Oncology 10/16/23 documented as of this encounter
--- OUTSIDE RECORDS SUMMARY | 2025-07-02 17:03 | XMS_ITS | Encounter Summary ---
Author Organization [facility] Address [address] [place] [address] Care Team Providers Care Pickle Maker Name Role Phone System, Provider Not In MD Primary Care Provider Unavailable Sal Mar MD Unavailable [phone] Edson Pendleton MD Primary Care Provider [phone] Encounter Details Date Type Department Care Team (Late st Contact Info) Description 01/03/2022 Orders Only [facility] @ [facility] [address] [place] [address] Fidel Vasquez MD [address] [place], [place] [id number] Social History Tobacco Use Types Packs/Day Years [...] Vitamin B12 >2,000(H) 232 - 1,245 pg/mL [facility] 01/03/2022 4:15 PM EDT 01/03/2022 5:14 PM EDT Fidel Vasquez MD LAB BLOOD ORDERABLES Final R esult [facility] [address] [place] [address], documented in this encounter Visit Diagnoses Not on filedocumented in this encounter Care Teams Pickle Maker Relationship Specialty Start Date End Date System, Provider Not In, [address] [place] [address] PCP - General Family Medicine 07/15/21 10/20/23 Edson Pendleton MD [address] [place] [address] PCP - General 10/21/23 Sal Mar MD [address] [place] [address] Medical Oncologist Hematology and Oncology 10/16/23 documented as of this encounter
--- OUTSIDE RECORDS SUMMARY | 2025-07-02 17:03 | XMS_ITS | Continuity of Care Document ---
Author Organization [facility], OPHTHALMOLOGY [facility] Address [address] [place] [address] Care Team Providers Care Ammonia Refrigeration Worker Name Role Phone AIDEN GAMBLE Primary Care Provider STEWART BALL Water Vessel Captain Assessment No assessment recorded. Plan of Treatment Reminders Order Date Submit Date Provider Last Modified By Organization Details Last Modified Time Details Appointments RECHECK 2025 01:20P M ALIE VASQUEZ MD Not available Not available Not available LEVEL 1 2025 01:30P M STEWART BALL MD Not available Not available Not available Lab None recorded . Referral None recorded . Procedures None recorded . Surgeries None recorded . Imaging None recorded . Medication Orders None recorded . Patient TargetsNo targets recorded. Patient Instructions Encounter Date Encounter Id Patient Instructions Last Modified By Organization Details Last Modified Time 05/31/2025 [id number] stable exam continue AREDS 2 vitamins BID and check grid QD (reviewed with technique and warning signs) would recc'd she consider cataract surgery od recheck 6 months complete exam with IOL calcs dkielar Not available 05/31/2025 11:35:04 Reason for Referral None Reported. Results Created Date Observation Date Name Description Value Unit Range Abnormal Flag Note LastModifiedBy Organization Detail LastModifiedTime 05/31/2005/31/2025 COMPL ETE BLOOD COUNT white blood cells 6.7 10*3/ uL 3.8-10 .8 normal Not Available [facility], [place], [address], 05/31/2025 15:49:42 05/31/202025 COMPL ETE BLOOD COUNT red blood cells 3.82 10*6/ uL 3.80-5 .20 normal Not Available [facility] [address] [place] [address], [address], 05/31/2025 15:49:42 05/31/20 25 05/31/2025 COMPL ETE BLOOD COUNT hemoglobin 12.3 g/dL 12.0-1 6.0 normal Not Available [facility] [address] [place] [address], [address], 05/31/2025 15:49:42 05/31/20 25 05/31/2025 COMPL ETE BLOOD COUNT hematocrit 35.9 % 35.0-4 7.0 normal Not Available [facility] [address] [place] [address], [address], 05/31/2025 15:49:42 05/31/20 25 05/31/2025 COMPL ETE BLOOD COUNT MCV 94 fL 80-100 normal Not Available [facility] [address] [place] [address], [address], 05/31/2025 15:49:42 05/31/20 25 05/31/2025 COMPL ETE BLOOD COUNT MCH 32 pg 26-35 normal Not Available [facility] [address] [place] [address], [address], 05/31/2025 15:49:42 05/31/20 25 05/31/2025 COMPL ETE BLOOD COUNT MCHC 34 g/dL 32-36 normal Not Available [facility] [address] [place] [address], [address], 05/31/2025 15:49:42 05/31/20 25 05/31/2025 COMPL ETE BLOOD COUNT RDW 14.7 % 11.0-1 5.0 normal Not Available [facility] [address] [place] [address], [address], 05/31/2025 15:49:42 05/31/20 25 05/31/2025 COMPL ETE BLOOD COUNT MPV 7.6 fL 6.2-10 .5 normal Not Available [facility] [address] [place] [address], [address], 05/31/2025 15:49:42 05/31/20 25 05/31/2025 COMPL ETE BLOOD COUNT platelet count 270 10*3/ uL 150-40 0 normal Not Available [facility] [address] [place] [address], [address], 05/31/2025 15:49:42 05/31/20 25 05/31/2025 COMPL ETE BLOOD COUNT neutrophil,a bsolute 5.8 10*3/ uL 1.6-8. 4 normal Not Available [facility] [address] [place] [address], [address], 05/31/2025 15:49:42 05/31/20 25 05/31/2025 COMPL ETE BLOOD COUNT lymphocyte,a bsolute 0.4 10*3/ uL 0.4-5. 1 normal Not Available [facility] [address] [place] [address], [address], 05/31/2025 15:49:42 05/31/20 25 05/31/2025 COMPL ETE BLOOD COUNT monocyte,abs olute 0.4 10*3/ uL 0.0-1. 2 normal Not Available [facility] [address] [place] [address], [address], 05/31/2025 15:49:42 05/31/20 25 05/31/2025 COMPL ETE BLOOD COUNT eosinophil,a bsolute 0.1 10*3/ uL 0.0-0. 8 normal Not Available [facility] [address] [place] [address], [address], 05/31/2025 15:49:42 05/31/20 25 05/31/2025 COMPL ETE BLOOD COUNT basophil,abs olute 0.0 10*3/ uL 0.0-0. 3 normal Not Available [facility] [address] [place] [address], [address], 05/31/2025 15:49:42 05/31/20 25 05/31/2025 COMPL ETE BLOOD COUNT % neutrophils 86.7 % 42.0-7 8.0 high Not Available [facility] [address] [place] [address], [address], 05/31/2025 15:49:42 05/31/20 25 05/31/2025 COMPL ETE BLOOD COUNT % lymphocytes 6.6 % 11.0-4 7.0 low Not Available [facility] [address] [place] [address], [address], 05/31/2025 15:49:42 05/31/20 25 05/31/2025 COMPL ETE BLOOD COUNT % monocytes 5.4 % 0.0-11 .0 normal Not Available [facility] [address] [place] [address], [address], 05/31/2025 15:49:42 05/31/20 25 05/31/2025 COMPL ETE BLOOD COUNT % eosinophils 0.9 % 0.0-7. 0 normal Not Available [facility] [address] [place] [address], [address], 05/31/2025 15:49:42 05/31/20 25 05/31/2025 COMPL ETE BLOOD COUNT % basophils 0.4 % 0.0-3. 0 normal Not Available [facility] [address] [place] [address], [address], 05/31/2025 15:49:42 05/31/20 25 05/31/2025 COMPL ETE BLOOD COUNT nucleated red cells 0.2 % 0.0-0. 9 normal Not Available [facility] [address] [place] [address], [address], 05/31/2025 15:49:42 05/31/20 25 05/31/2025 COMPL ETE BLOOD COUNT nucleated RBCs, absolute 0.01 10*3/ uL not estab. normal Not Available [facility] [address] [place] [address], [address], 05/31/2025 15:49:42 05/31/20 25 05/31/2025 COMP. METAB OLIC PANEL glucose 89 mg/dL 74-100 normal Not Available [facility] [address] [place] [address], [address], 05/31/2025 17:24:20 05/31/20 25 05/31/2025 COMP. METAB OLIC PANEL blood urea nitrogen 22 mg/dL 6-20 high Not Available [facility] [address] [place] [address], [address], 05/31/2025 17:24:20 05/31/20 25 05/31/2025 COMP. METAB OLIC PANEL creatinine 1.16 mg/dL 0.50-0 .95 high Not Available [facility] [address] [place] [address], [address], 05/31/2025 17:24:20 05/31/20 25 05/31/2025 COMP. METAB OLIC PANEL BUN/creatini ne ratio 19 (calc ) 10-20 normal Not Available [facility] [address] [place] [address], [address], 05/31/2025 17:24:20 05/31/20 25 05/31/2025 COMP. METAB OLIC PANEL sodium 141 mmol/ L 136-14 5 normal Not Available [facility] [address] [place] [address], [address], 05/31/2025 17:24:20 05/31/20 25 05/31/2025 COMP. METAB OLIC PANEL potassium 3.9 mmol/ L 3.4-5. 0 normal Not Available [facility] [address] [place] [address], [address], 05/31/2025 17:24:20 05/31/20 25 05/31/2025 COMP. METAB OLIC PANEL chloride 103 mmol/ L 98-107 normal Not Available [facility] [address] [place] [address], [address], 05/31/2025 17:24:20 05/31/20 25 05/31/2025 COMP. METAB OLIC PANEL carbon dioxide 25 mmol/ L 22-31 normal Not Available [facility] [address] [place] [address], [address], 05/31/2025 17:24:20 05/31/20 25 05/31/2025 COMP. METAB OLIC PANEL anion gap 13 (calc ) 7-25 normal Not Available [facility] [address] [place] [address], [address], 05/31/2025 17:24:20 05/31/20 25 05/31/2025 COMP. METAB OLIC PANEL calcium 8.8 mg/dL 8.6-10 .2 normal Not Available [facility] [address] [place] [address], [address], 05/31/2025 17:24:20 05/31/20 25 05/31/2025 COMP. METAB OLIC PANEL total protein 6.7 g/dL 6.4-8. 3 normal Not Available [facility] [address] [place] [address], [address], 05/31/2025 17:24:20 05/31/20 25 05/31/2025 COMP. METAB OLIC PANEL albumin 4.1 g/dL 3.5-5. 2 normal Not Available [facility] [address] [place] [address], [address], 05/31/2025 17:24:20 05/31/20 25 05/31/2025 COMP. METAB OLIC PANEL globulin 2.6 1.5-4. 5 normal Not Available [facility] [address] [place] [address], [address], 05/31/2025 17:24:20 05/31/20 25 05/31/2025 COMP. METAB OLIC PANEL albumin/glob ulin ratio 1.6 (calc ) 1.1-2. 5 normal Not Available [facility] [address] [place], [address], 05/31/2025 17:24:20 05/31/20 25 05/31/2025 COMP. METAB OLIC PANEL bilirubin, total 0.3 mg/dL 0.1-1. 0 normal NOTE: New refer ence range . Not Available [facility] [address] [place], [address], 05/31/2025 17:24:20 05/31/20 25 05/31/2025 COMP. METAB OLIC PANEL alkaline phosphatase 57 U/L 30-121 normal Not Available [facility] [address] [place], [address], 05/31/2025 17:24:20 05/31/20 25 05/31/2025 COMP. METAB OLIC PANEL AST 19 U/L 0-32 normal Not Available [facility] [address] [place], [address], 05/31/2025 17:24:20 05/31/20 25 05/31/2025 COMP. METAB OLIC PANEL ALT 10 U/L 0-33 normal Not Available [facility] [address] [place], [address], 05/31/2025 17:24:20 05/31/20 25 05/31/2025 COMP. METAB OLIC PANEL eGFR 46 >= 60 abnormal NOT E New calcu latio n for GFR (CKD- EPI 2020) is formu lated witho ut race adjus tment facto rs at the recom menda tion of the [employer] [employer] atgrady and [employer]i w[facility] ty of Nephr ology . This calcu latio n has not been valid ated in pregn ant women . For pedia tric patie nts refer to https ://andrew strong.jann nicole/pr ofess ional s/KDO QI/gf r_cal culat orPed Not Available [facility] [address] [place] [address], [address], 05/31/2025 17:24:20 05/31/20 25 05/31/2025 IRON PANEL -TOTA L AND TIBC iron 117 ug/dL 37-145 normal Not Available [facility] [address] [place] [address], [address], 05/31/2025 17:24:22 05/31/20 25 05/31/2025 IRON PANEL -TOTA L AND TIBC total iron binding cap. 404 ug/dL _(kyree c) 250-45 0 normal Not Available [facility] [address] [place] [address], [address], 05/31/2025 17:24:22 05/31/20 25 05/31/2025 IRON PANEL -TOTA L AND TIBC unsat.iron binding cap. 287 ug/dL 112-34 7 normal Not Available [facility] [address] [place] [address], [address], 05/31/2025 17:24:22 05/31/20 25 05/31/2025 IRON PANEL -TOTA L AND TIBC % saturation 29 %_(ca lc) 15-50 normal Not Available [facility] [address] [place] [address], [address], 05/31/2025 17:24:22 05/31/20 25 05/31/2025 JUANA TIN ferritin 131 NG/mL 13-157 normal Not Available [facility] [address] [place] [address], [address], 05/31/2025 17:24:23 05/31/20 optic al coher ence tomog jackelyn, retin a No observ ation record ed. [email or web address] Not Available 05/31 13:05:35 05/31/20 25 05/31/2025 optic al coher ence tomog jackelyn, retin a No observ ation record ed. [email or web address] Not Available 2024 13:21:21 Result Notes None recorded. Problems Name Problem SNOMED Code Status Onset Date Resolution Date Notes Provider Name and Address Organization Details Recorded Time Crohn's disease of small intestine 83757281 Active 2014 From Automated Load;[facility] cisco: Alie Vasquez;St atus: Active Not Available [facility] 6 03:17:43 Neoplasm of uncertain behavior of skin 57072366 Active 2014 From Automated Load;[facility]: Nilton Antunez;Sta tus: Active Not Available [facility] 6 03:17:43 Inflamed seborrhei c keratosis 281088784 Active 2014 From Automated Load;Provi cisco: Nilton Antunez;Sta tus: Active Not Available [facility] 6 03:17:44 Senile hyperkera tosis 190822017 Active 2015 From Automated Load;[facility]co: Nilton Antunez;Sta tus: Active Not Available [facility] 6 03:17:44 Presbyopi a 48975243 Active 2015 From Automated Load;[facility]vi [facility]co: Stewart Ball;Stat us: Active STEWART BALL MD [address] [place] [address], [address] , [facility] 3 15:07:09 Excess skin of eyelid 415949888 Active 2016 STEWART BALL MD [address] [place] [address], [address] , [facility] 3 15:07:08 Combined form of senile cataract 22186745 Active 2016 STEWART BALL MD [address] [place] [address], [address] , [facility] 3 15:07:08 Nonexudat sadiq age-relat ed macular degenerat ion 892395719 Active 2016 STEWART BALL MD [address] [place] [address], [address] , [facility] 3 15:07:08 Hypermetr opia 39392739 Active 2016 STEWART BALL MD [facility] [place], [address] , [facility] 3 15:07:09 Regular astigmati sm 64692181 Active 2016 STEWART BALL MD [facility] [place], [address] , [facility] 3 15:07:09 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 Procedures Surgical History Date Name Laterality Status Provider Name and Address Organization Details Recorded Time 05/31/20 25 OCT/Retina completed STEWART BALL MD [address] [place] [address], [address], [facility] 05/31/2025 11:29:35 05/18/20 24 OCT/Retina completed STEWART BALL MD [facility] [place], [address], [facility] 05/18/2024 14:02:51 05/09/20 23 OCT/Retina completed STEWART BALL MD [address] [place] [address] [place], [address], [facility] 05/09/2023 15:06:01 05/03/20 22 OCT/Retina completed STEWART BALL MD [facility] [place], [address], [facility] 05/03/2022 16:28:16 08/22/19 22 Destruction Premalignant Lesion(s) completed NILTON ANTUNEZ MD [address] [place] [address] [place], [address], [facility] 08/22/2021 16:52:42 08/22/19 22 Destruction BN Lesions completed Meryl Cota [facility] 08/22/2021 15:57:56 08/08/19 21 OCT/Retina completed STEWART BALL MD [address] [place] [address], [address], [facility] 08/08/2020 17:09:48 05/13/20 20 DXA Low Bone Mass 2 - Tx completed CODEY YATES MD [address] [place] [address], [address], [facility] 05/13/2020 16:04:39 02/27/20 19 OCT/Retina completed STEWART BALL MD [address] [place] [address], [address], [facility] 02/26/2019 15:43:22 02/27/20 19 Refraction completed STEWART BALL MD [address] [place] [address], [address], [facility] 02/26/2019 15:42:39 11/25/19 19 Endoscopy Nasal; Diagnostic completed NINA STONE MD [address] [place] [address], [address], [facility] 11/24/2018 16:34:59 03/19/20 18 OCT/Retina completed Monique Ram [facility] 03/19/2018 10:35:33 07/01/20 17 Refraction completed STEWART BALL MD [address] [place] [address], [address], [facility] 07/01/2017 16:08:10 06/21/20 17 DXA Low Bone Mass 2 - Tx completed CODEY YATES MD [address] [place] [address], [address], [facility] 06/21/2017 16:40:17 09/10/19 17 Destruction BN Lesions completed Meryl Cota [facility] 09/10/2016 14:27:58 09/10/19 17 Shave Lesion; scalp, neck, hand, foot, genitalia completed NILTON ANTUNEZ MD [address] [place] [address], [address], [facility] 09/13/2016 18:12:00 Appendectomy completed [facility] 06/27/2016 15:48:58 Incision of gallbladder completed [facility] 06/27/2016 15:49:[address] [facility] 06/27/2016 15:49:50 Imaging Results None recorded. Procedure Notes None recorded. Medical Equipment None Reported. Allergies Allergen ID Allergen Name Allergen Category Reaction Reaction Severity Criticality Documentation Date Start Date Code Code System Note Provider Name and Address Organization Details Recorded Time 530437 tetracycl ine hydrochlo ride medicatio n rash Not available Not available 06/07/20162005 62800 6 RxNorm React ion: RASH; Comme nt: itchi ng;Cr eated By: Navi Germain ;Crea lopez Date: 06/03 12:07 :13 PM; Not Available [facility] 6 11:16:06 818469 E-Mycin medicatio n other Not available Not available 06/07/2016200560 8 RxNorm React ion: OTHER ; Comme nt: felt faint ;Crea lopez By: Navi Germain ;Crea lopez Date: 06/03 12:08 :16 PM; Not Available [facility] 6 11:16:06 497422 Product containin g penicilli n (product) medicatio n other moderate Not available 06/07/20162005 13866 8001 SNOMED React ion: OTHER ;Ana rity: Moder ate; Comme nt: felt faint ,;Cre ated By: Navi Germain ;Crea lopez Date: 06/03 12:02 :37 PM; Not Available [facility] 6 11:16:06 112024 corticotr opin medicatio n other Not available Not available 06/07/20162005 376 RxNorm React ion: OTHER ; Comme nt: flush ed;Cr eated By: Navi Germain ;Crea lopez Date: 06/03 12:09 :34 PM; Not Available [facility] 6 11:16:06 501129 Celestone medicatio n other Not available Not available 06/07/2016200569 9 RxNorm React ion: OTHER ; Comme nt: felt flush ed had with maggie s;Cre ated By: Navi Germain ;Crea lopez Date: 06/03 12:12 :25 PM; Not Available [facility] 6 14:09:41 663644 streptomy kathy sulfate medicatio n other Not available Not available 06/07/20162005 45276 RxNorm React ion: OTHER ;Ana rity: Unkno wn; Comme nt: felt flush ed;Cr eated By: Navi Germain ;Crea lopez Date: 06/03 12:05 :45 PM; Not Available [facility] 6 14:09:41 093726 atropine / chlorphen iramine / hyoscyami ne / pseudoeph edrine / scopolami ne medicatio n other Not available Not available 06/07/20162005 18748 67 RxNorm React ion: OTHER ; Comme nt: felt flush ed had toget her with nicolás tone; Creat ed By: Navi Germain ;Crea lopez Date: 06/03 12:11 :27 PM; Not Available [facility] 6 14:09:41 740175 Dexferrum medicatio n respirato ry distress severe Not available 06/07/20162005 49905 5 RxNorm React ion: SHORT NESS OF BREAT H;Sev erity : Sever e; Comme nt: flush ed, felt faint ;Crea lopez By: Navi Germain ;Crea lopez Date: 06/03 11:59 :50 AM; Not Available [facility] 6 14:24:12 465156 clonidine medicatio n hallucina tions Not available Not available 08/08/2020 2599 RxNorm IonELIUD Mccarthy [facility] 1 16:12:00 848930 sulfameth oxazole / trimethop rim medicatio n Not available Not available Not available 05/31/2025 63015 RxNorm Not Available [place] - [employer] - prod 5 06:51:09 128141 nebivolol medicatio n Not available Not available Not available 05/31/2025 70945 RxNorm Not Available [employer] - prod 5 06:51:09 309904 cefuroxim e Not available Not available Not available Not available 05/31/2025 2194 RxNorm Not Available [employer] - prod 5 06:51:09 466870 betametha sone / betametha sone acetate medicatio n Not available Not available Not available 05/31/2025 46050 39 RxNorm Not Available [employer] - prod 5 06:51:09 587376 erythromy kathy medicatio n Not available Not available Not available 05/31/2025 4053 RxNorm Not Available [employer] - [employer] 5 06:51:09 345488 clindamyc in Not available Not available Not available Not available 05/31/2025 2582 RxNorm Not Available [facility] [employer] 5 06:51:09 897901 streptomy kathy medicatio n Not available Not available Not available 05/31/2025 24573 RxNorm Not Available [employer] [facility] [employer] 5 06:51:09 379127 tetracycl ine medicatio n Not available Not available Not available 05/31/2025 80187 RxNorm Not Available [employer] [facility] [employer] 5 06:51:09 Medications Name Sig Start Date Stop Date [...] 0 Not Available Not Available Not Available budesonid e DR - ER 3 mg capsule,d elayed,ex tended release Take 3 capsules every day by oral route. 04/13 completed Not Available Not Available Not Available Dyazide [...] Not Available Vitals Date Recorded Body height Provider Name an d Address Organization Details Last Updated DateTime 05/31/2025 160.02 cm Abdelrahman Bernal [facility] 05/31/2025 10:56:17 Social History Question Answer Notes LastModified by Organizat ion Details LastModified Time Tobacco Smoking Status [facility] 15:48:49 What Was The Date Of [...] and Address Organization Details Recorded Time Influenza, high-dose, trivalent, PF 7 completed Not Available [facility] 05/31/2025 10:36:58 Influenza, high-dose, trivalent, PF 8 completed Not Available [facility] 05/31/2025 10:36:58 pneumococcal polysaccharide PPV23 8 completed Not Available [facility] 05/31/2025 10:36:58 Influenza, high-dose, trivalent, PF 9 completed Not Available [facility] 05/31/2025 10:36:58 Influenza, high-dose, trivalent, PF 0 completed Not Available [facility] 05/31/2025 10:36:58 COVID-19, mRNA, LNP-S, PF, 100 mcg/0.5mL dose or 50 mcg/0.25mL dose 1 completed Not Available [facility] 05/31/2025 10:36:58 COVID-19, mRNA, LNP-S, PF, 100 mcg/0.5mL dose or 50 mcg/0.25mL dose 1 completed Not Available [facility] 05/31/2025 10:36:58 Influenza, high-dose, quadrivalent, PF 1 completed Not Available [facility] 05/31/2025 10:36:58 COVID-19, mRNA, LNP-S, PF, 100 mcg/0.5mL dose or 50 mcg/0.25mL dose 1 completed Not Available [facility] 05/31/2025 10:36:58 COVID-19, mRNA, LNP-S, PF, 100 mcg/0.5mL dose or 50 mcg/0.25mL dose 2 completed Not Available [facility] 05/31/2025 10:36:58 COVID-19, mRNA, LNP-S, bivalent, PF, 50 mcg/0.5 mL or 25mcg/0.25 mL dose 2 completed Not Available [facility] 05/31/2025 10:36:58 Pneumococcal conjugate PCV20, polysaccharide [id number] conjugate, adjuvant, PF 3 completed Not Available [facility] 05/31/2025 10:36:58 COVID-19, mRNA, LNP-S, PF, 50 mcg/0.5 mL 3 completed Not Available [facility] 05/31/2025 10:36:58 RSV, recombinant, protein subunit RSVpreF, adjuvant reconstituted, 0.5 mL, PF 3 completed Not Available [facility] 05/31/2025 10:36:58 COVID-19, mRNA, LNP-S, PF, jenny-sucrose, 30 mcg/0.3 mL 4 completed Not Available [facility] 05/31/2025 10:36:58 RSV, bivalent, protein subunit RSVpreF, diluent reconstituted, 0.5 mL, PF 4 completed Not Available [facility] 05/31/2025 10:36:58 Past Encounters Encounter ID Performer Location Encounter Start Date Encounter Closed Date Diagnosis/Indication Diagnosis SNOMED-CT Code Diagnosis ICD10 Code Diagnosis IMO Codes Diagnosis Note [id number] STEWART BALL MD [facility]PHTH[facility]MO [address] [place] [address] 05/31/2025 10:35:05 05/31/2025 11:58:23 Nonexudative age-related macular degeneration 346463645 H35.3132 stable 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 4 Health Concerns Section Related Observation LastModified by Organization Detai ls LastModified Time None Recorded Concern Status LastModified by Organization Details LastModified Time None Recorded Payers Encounter Date Sequence Insurance Name Policy Number Policy Gupta Covered Member ID Gupta Member ID Guarantor Name 05/31/2025 1 [place] Alejandra Ramos [id number] Alejandra Ramos 05/31/2025 2 [employer] (MEDICARE SUPPLEMENT) Alejandra Ramos [id number] Alejandra Ramos Notes Date Note Type Note Provider Name and Address Organization Details Recorded Time 05/31/2025 text/html ROS as noted in the HPI STEWART BALL MD [address] [place] [address], [id number], [facility] 05/31/2025 11:35:31 OBGyn Episode No OBEpisode recorded.
--- OUTSIDE RECORDS SUMMARY | 2025-07-02 17:03 | XMS_ITS | Encounter Summary ---
Author Organization [facility] Address [address] [place] [address] Care Team Providers Care Blower Feeder Dyed Raw Stock Name Role Phone System, Provider Not In MD Primary Care Provider Unavailable Sal Mar MD Unavailable [phone] Edson Pendleton MD Primary Care Provider [phone] Encounter Details Date Type Department Care Team (Late st Contact Info) Description 02/08/2022 Orders Only [facility] at [facility] [address] [place] [address] Sal Mar MD [address] [address] Social History Tobacco Use Types [...] External Ferritin 94 13 - 157 ng/mL [facility] 02/08/2022 2:16 PM EDT 02/08/2022 2:34 PM EDT Sal Mar MD LAB BLOOD ORDERABLES Final Res ult [facility] [address] [place] [address], documented in this encounter Visit Diagnoses Not on filedocumented in this encounter Care Teams Blower Feeder Dyed Raw Stock Relationship Specialty Start Date End Date System, Provider Not In, [address] [place] [address] PCP - General Family Medicine 07/15/21 10/20/23 Edson Pednleton MD [address] [place] [address] [address] [place] [address] PCP - General 10/21/23 Sal Mar MD [address] [place] [address] Medical Oncologist Hematology and Oncology 10/16/23 documented as of this encounter
--- OUTSIDE RECORDS SUMMARY | 2025-07-02 17:03 | XMS_ITS | Encounter Summary ---
Author Organization [facility] Address [address] [place] [address] Care Team Providers Care Pit Operator Name Role Phone System, Provider Not In MD Primary Care Provider Unavailable Sal Mar MD Unavailable [phone] Edson Pendleton MD Primary Care Provider [phone] Encounter Details Date Type Department Care Team (Late st Contact Info) Description 01/08/2022 Orders Only [facility] [address] [place] [address] Fidel Vasquez MD [address] [place], [place] [id number] Social History Tobacco Use Types Packs/Day Years [...] EDT) External Calprotectin 30 mcg/g [facility] Comment: Reference Range: <50 Normal 50-120 Borderline >120 Elevated Calprotectin in Crohn's disease and ulcerative colitis can be five to several thousand times above the reference population (50 mcg/g or less). Levels are usually 50 mcg/g or less in healthy patients and with irritable bowel syndrome. Repeat testing in 4-6 weeks is suggested for borderline values. TEST PERFORMED AT: [employer] [facility] [address] [place] [address] LI CALERO MD,PHD,SEBLE 01/08/2022 12:3 8 PM EDT 01/08/2022 12:45 PM EDT Fidel Vasquez MD LAB BODY FLUIDS AND STOOLS O RDERABLES Final Result Performing Organization Address City/State/[facility] Co de Phone Number [facility] [address] [place] [address], documented in this encounter Visit Diagnoses Not on filedocumented in this encounter Care Teams Pit Operator Relationship Specialty Start Date End Date System, Provider Not In, [address] [place] [address] PCP - General Family Medicine 07/15/21 10/20/23 Edson Pendleton MD [address] [facility] [address] [place] [address] PCP - General 10/21/23 Sal Mar MD [address] [place] [address] Medical Oncologist Hematology and Oncology 10/16/23 documented as of this encounter
--- OUTSIDE RECORDS SUMMARY | 2025-07-02 17:03 | XMS_ITS | Encounter Summary ---
Author Organization [facility] Address [address] [place] [address] Care Team Providers Care Contracting Analyst Name Role Phone System, Provider Not In MD Primary Care Provider Unavailable Sal Mar MD Unavailable [phone] Edson Pendleton MD Primary Care Provider [phone] Encounter Details Date Type Department Care Team (Late st Contact Info) Description 11/08/2022 Orders Only [facility] [address] [place] [address] Sal Mar MD [address] [id number] Social History Tobacco Use Types Packs/Day Years [...] Ferritin 9(L) 13 - 157 ng/mL [facility] 11/08/2022 12:4 5 PM EDT 11/08/2022 12:54 PM EDT Sal Mar MD LAB BLOOD ORDERABLES Final Res ult [facility] [address] [place] [address], documented in this encounter Visit Diagnoses Not on filedocumented in this encounter Care Teams Contracting Analyst Relationship Specialty Start Date End Date System, Provider Not In, [address] [place] [address] PCP - General Family Medicine 07/15/21 10/20/23 Edson Pendleton MD [address] [place] [address] PCP - General 10/21/23 Sal Mar MD [address] [place] [address] Medical Oncologist Hematology and Oncology 10/16/23 documented as of this encounter
--- OUTSIDE RECORDS SUMMARY | 2025-07-02 17:03 | XMS_ITS | Encounter Summary ---
Author Organization [facility] Address [address] [place] [address] Care Team Providers Care Foreclosure Paralegal Name Role Phone System, Provider Not In MD Primary Care Provider Unavailable Sal Mar MD Unavailable [phone] Edson Pendleton MD Primary Care Provider [phone] Encounter Details Date Type Department Care Team (Late st Contact Info) Description 11/08/2022 Orders Only [facility] at [facility] [address] [place] [address] Sal Mar MD [address] [address] Social History Tobacco Use Types [...] External Iron 105 37 - 145 ug/dL [facility] External Total Iron Binding Capacity 481(H) 250 - 450 ug/dL (calc) [facility] External Unsaturated Iron Binding Capacity 376(H) 112 - 347 ug/dL [facility] External Iron-Saturation% 22 15 - 50 % (calc) [facility] 11/08/2022 12:4 5 PM EDT 11/08/2022 12:54 PM EDT us Sal Mar MD LAB BLOOD ORDERABLES Final Res ult [facility] [address] [place] [address], documented in this encounter Visit Diagnoses Not on filedocumented in this encounter Care Teams Foreclosure Paralegal Relationship Specialty Start Date End Date System, Provider Not In, [address] [place] [address] PCP - General Family Medicine 07/15/21 10/20/23 Edson Pendleton MD [address] [place] [address] PCP - General 10/21/23 Sal Mar MD [address] [place] [id number] Medical Oncologist Hematology and Oncology 10/16/23 documented as of this encounter
--- OUTSIDE RECORDS SUMMARY | 2025-07-02 17:03 | XMS_ITS | Encounter Summary ---
Author Organization [facility] Address [address] [place] [address] Care Team Providers Care Cfo Controller Name Role Phone System, Provider Not In MD Primary Care Provider Unavailable Sal Mar MD Unavailable [phone] Edson Pendleton MD Primary Care Provider [phone] Encounter Details Date Type Department Care Team (Late st Contact Info) Description 01/08/2022 Orders Only [facility] @ [facility] [address] [place] [address] Fidel Vasquez MD [address] [place], [place] [id number] Social History Tobacco Use Types Packs/Day Years [...] EDT) EXTERNAL GI PANEL SEE BELOW [facility] External Campylobacter species by PCR Negative Negative [facility] External Clostridioides (Clostridium) Difficile Toxin Negative Negative [facility] External Plesiomonas shigelloides Negative Negative [facility] EXTERNAL SALMONELLA SPP Negative Negative [facility] External Vibrio Negative Negative [facility] External Vibrio cholerae Negative Negative [facility] EXTERNAL YERSINIA SPECIES Negative Negative [facility] External Enteroaggregative E. Coli Negative Negative [facility] External Enteropathogenic E. coli Negative Negative [facility] External Enterotoxigenic E. coli LT/ST Negative Negative [facility] External Uweca-Pagqj-Bymdsxgo g E. coli Negative Negative [facility] External Shigella/Enteroinvas sadiq E. coli Negative Negative [facility] EXTERNAL CRYPTOSPORIDIUM SPECIES Negative Negative [facility] External Cyclospora cayetanensis Negative Negative [facility] External Entamoeba histolytica Negative Negative [facility] External Giardia lamblia Negative Negative [facility] External Adenovirus F 40/41 Negative Negative [facility] External Astrovirus Negative Negative [facility] EXTERNAL NOROVIRUS GI/GII Negative Negative [facility] External Rotavirus Negative Negative L [facility] External Sapovirus Negative Negative L [facility] Comment: ADDITIONAL INFORMATION This assay is performed using the FDA-cleared FilmArray GI Panel ([employer] TEST PERFORMED AT: [facility] [address] [place] [id number] SAL HARRIS II, MD,PHD 01/08/2022 12:3 8 PM EDT 01/08/2022 12:45 PM EDT us Fidel Vasquez MD LAB MICROBIOLOGY - GENERAL O RDERABLES Final Result [facility] [address] [place] [address], documented in this encounter Visit Diagnoses Not on filedocumented in this encounter Care Teams Cfo Controller Relationship Specialty Start Date End Date System, Provider Not In, MD [address] [place] [address] PCP - General Family Medicine 07/15/21 10/20/23 Edson Pendleton MD [address] [facility] [address] [place] [address] PCP - General 10/21/23 Sal Mar MD [address] [place] [address] Medical Oncologist Hematology and Oncology 10/16/23 documented as of this encounter
--- OUTSIDE RECORDS SUMMARY | 2025-07-02 17:03 | XMS_ITS | Encounter Summary ---
Author Organization [facility] Address [address] [place] [address] Care Team Providers Care Pig Sticker Name Role Phone System, Provider Not In MD Primary Care Provider Unavailable Sal Mar MD Unavailable [phone] Edson Pendleton MD Primary Care Provider [phone] Encounter Details Date Type Department Care Team (Late st Contact Info) Description 01/16/2022 Orders Only [facility] @ [facility] [address] [place] [address] Fidel Vasquez MD [address] [place], [place] [address] Social History Tobacco Use Types Packs/Day Years [...] Exam (01/16/2022) External Surgical Pathology SEE BELOW [facility] Comment: Department of Pathology Surgical Pathology Report NAME:ALEJANDRA MALONE PATH.:[id number] Copy to: Diagnosis: A) Ileum biopsy: Small [...] ORDERABLES Fin al Result Performing Organization Address City/State/[facility] Co de Phone Number [facility] [address] [place] [address], documented in this encounter Visit Diagnoses Not on filedocumented in this encounter Care Teams Pig Sticker Relationship Specialty Start Date End Date System, Provider Not In, [facility] [place] [address] PCP - General Family Medicine 07/15/21 10/20/23 dEson Pendleton MD [address] [place] [address] PCP - General 10/21/23 Sal Mar MD [address] [place] [address] Medical Oncologist Hematology and Oncology 10/16/23 documented as of this encounter
--- OUTSIDE RECORDS SUMMARY | 2025-07-02 17:03 | XMS_ITS | Encounter Summary ---
Author Organization [facility] Address [address] [place] [address] Care Team Providers Care Pharmaceutical Plant Operator Name Role Phone System, Provider Not In MD Primary Care Provider Unavailable Sal Mar MD Unavailable [phone] Edson Pendleton MD Primary Care Provider [phone] Encounter Details Date Type Department Care Team (Late st Contact Info) Description 02/08/2022 Orders Only [facility] at [facility] [address] [place] [address] Sal Mar MD [address] [address] Social History Tobacco Use Types [...] External Glucose 106(H) 74 - 100 mg/dL [facility] External BUN 27(H) 6 - 20 mg/dL [facility] External Creatinine Blood 1.59(H) 0.50 - 0.95 mg/dL [facility] External BUN/Creat Ratio 17 10 - 20 (calc) [facility] External Sodium 141 136 - 145 mmol/L [facility] External Potassium 4.0 3.4 - 5.0 mmol/L [facility] External Chloride 103 98 - 107 mmol/L [facility] External Carbon Dioxide 26 22 - 31 mmol/L [facility] External Anion Gap (AG) 12 7 - 25 (calc) [facility] External Calcium 9.3 8.6 - 10.2 mg/dL [facility] External Total Protein 6.1(L) 6.4 - 8.3 g/dL [facility] External Albumin 4.1 3.5 - 5.2 g/dL [facility] External Globulin 2.0 1.5 - 4.5 g/dL (calc) [facility] External Albumin/Globulin Ratio 2.1 1.1 - 2.5 (calc) [facility] External Bilirubin Total 0.3 0.1 - 1.2 mg/dL [facility] External Alkaline Phosphatase 47 30 - 121 U/L [facility] External AST (SGOT) 19 0 - 32 U/L [facility] External ALT (SGPT) 13 0 - 33 U/L [facility] External Estimated GFR 32(A) >=60 [facility] Comment: NOTE New calculation for [...] Res ult [facility] [address] [place] [address], documented in this encounter Visit Diagnoses Not on filedocumented in this encounter Care Teams Pharmaceutical Plant Operator Relationship Specialty Start Date End Date System, Provider Not In, [address] [place] [address] PCP - General Family Medicine 07/15/21 10/20/23 Edson Pendleton MD [address] [place] [address] PCP - General 10/21/23 Sal Mar MD [address] [place] [id number] Medical Oncologist Hematology and Oncology 10/16/23 documented as of this encounter
--- OUTSIDE RECORDS SUMMARY | 2025-07-02 17:03 | XMS_ITS | Encounter Summary ---
Author Organization [facility] Address [address] [place] [address] Care Team Providers Care Medical Billing Representative Name Role Phone System, Provider Not In MD Primary Care Provider Unavailable Sal Mar MD Unavailable [phone] Edson Pendleton MD Primary Care Provider [phone] Encounter Details Date Type Department Care Team (Late st Contact Info) Description 11/08/2022 Orders Only [facility] [address] [place] [address] Sal Mar MD [address] [address] Social History Tobacco Use Types [...] External Glucose 93 74 - 100 mg/dL [facility] External BUN 27(H) 6 - 20 mg/dL [facility] External Creatinine Blood 1.39(H) 0.50 - 0.95 mg/dL [facility] External BUN/Creat Ratio 19 10 - 20 (calc) [facility] External Sodium 141 136 - 145 mmol/L [facility] External Potassium 4.3 3.4 - 5.0 mmol/L [facility] External Chloride 105 98 - 107 mmol/L [facility] External Carbon Dioxide 24 22 - 31 mmol/L [facility] External Anion Gap (AG) 12 7 - 25 (calc) [facility] External Calcium 8.4(L) 8.6 - 10.2 mg/dL [facility] External Total Protein 5.9(L) 6.4 - 8.3 g/dL [facility] External Albumin 3.7 3.5 - 5.2 g/dL [facility] External Globulin 2.2 1.5 - 4.5 g/dL (calc) [facility] External Albumin/Globulin Ratio 1.7 1.1 - 2.5 (calc) [facility] External Bilirubin Total 0.2 0.1 - 1.2 mg/dL [facility] External Alkaline Phosphatase 45 30 - 121 U/L [facility] External AST (SGOT) 16 0 - 32 U/L [facility] External ALT (SGPT) 11 0 - 33 U/L [facility] External Estimated GFR 37(A) >=60 [facility] Comment: NOTE New calculation for GFR (CKD-EPI 2020) is formulated without race adjustment factors at the recommendation of the National Kidney Foundation and [place] [employer]ph[employer]. This calculation has not been validated in women. For pediatric patients refer to https://www.kidney.org/professionals/KDOQI/gfr_calculatorPed 11/08/2022 12:4 5 PM EDT 11/08/2022 12:54 PM EDT us Sal Mar MD LAB BLOOD ORDERABLES Final Res ult [facility] [address] [place] [address], documented in this encounter Visit Diagnoses Not on filedocumented in this encounter Care Teams Medical Billing Representative Relationship Specialty Start Date End Date System, Provider Not In, [address] [place] [address] PCP - General Family Medicine 07/15/21 10/20/23 Edson Pendleton MD [address] [place] [address] PCP - General 10/21/23 Sal Mar MD [address] [place], [place] [id number] Medical Oncologist Hematology and Oncology 10/16/23 documented as of this encounter
--- OUTSIDE RECORDS SUMMARY | 2025-07-02 17:03 | XMS_ITS | Encounter Summary ---
Author Organization [facility] Address [address] [place] [address] Care Team Providers Care Steam Shovelman Name Role Phone System, Provider Not In MD Primary Care Provider Unavailable Sal Mar MD Unavailable [phone] Edson Pendleton MD Primary Care Provider [phone] Encounter Details Date Type Department Care Team (Late st Contact Info) Description 11/09/2021 Orders Only [facility] [address] [place] [address] Sal Mar MD [address] [phone] Social History Tobacco Use Types Packs/Day Years [...] Ferritin 9(L) 13 - 157 ng/mL [facility] 11/09/2021 3:53 PM EDT 11/09/2021 6:04 PM EDT Sal Mar MD LAB BLOOD ORDERABLES Final Res ult [facility] [address] [place] [address], documented in this encounter Visit Diagnoses Not on filedocumented in this encounter Care Teams Steam Shovelman Relationship Specialty Start Date End Date System, Provider Not In, [address] [place] [address] PCP - General Family Medicine 07/15/21 10/20/23 Edson Pendleton MD [address] [place] [address] PCP - General 10/21/23 Sal Mar MD [address] [place] [address] Medical Oncologist Hematology and Oncology 10/16/23 documented as of this encounter
--- OUTSIDE RECORDS SUMMARY | 2025-07-02 17:03 | XMS_ITS | Encounter Summary ---
Author Organization [facility] Address [address] [place] [address] Care Team Providers Care Light Adjuster Name Role Phone System, Provider Not In MD Primary Care Provider Unavailable Sal Mar MD Unavailable [phone] Edson Pendleton MD Primary Care Provider [phone] Encounter Details Date Type Department Care Team (Late st Contact Info) Description 02/08/2022 Orders Only [facility] at [facility] [address] [place] [address] Sal Mar MD [address] [address] Social History Tobacco Use Types [...] External Iron 116 37 - 145 ug/dL [facility] External Total Iron Binding Capacity 419 250 - 450 ug/dL (calc) [facility] External Unsaturated Iron Binding Capacity 303 112 - 347 ug/dL [facility] External Iron-Saturation% 28 15 - 50 % (calc) [facility] 02/08/2022 2:16 PM EDT 02/08/2022 2:34 PM EDT us Sla Mar MD LAB BLOOD ORDERABLES Final Res ult [facility] [address] [place] [address], documented in this encounter Visit Diagnoses Not on filedocumented in this encounter Care Teams Light Adjuster Relationship Specialty Start Date End Date System, Provider Not In, [address] [place] [address] PCP - General Family Medicine 07/15/21 10/20/23 Edson Pendleton MD [address] [place] [address] PCP - General 10/21/23 Sal Mar MD [address] [place], [place] [id number] Medical Oncologist Hematology and Oncology 10/16/23 documented as of this encounter
--- OUTSIDE RECORDS SUMMARY | 2025-07-02 17:03 | XMS_ITS | Clinical Summary ---
Author Organization [facility] Address [address] [place] [address] Care Team Providers Care Industrial Safety And Health Manager Name Role Phone Sal Mar MD Unavailable [phone] Edson Pendleton MD Primary Care Provider [phone] Allergies Active Allergy Reactions Criticality Noted Date [...] Encounters Date Type Department Care Team Description 05/31/2025 Orders Only [facility] [address] [place] [address] Fidel Vasquez MD 05/31/2025 Orders Only [facility] at [facility] [address] [place] [address] Fidel Vasquez MD 05/31/2025 Orders Only [facility] at [facility] [address] [place] [address] Fidel Vasquez MD 05/31/2025 Orders Only [facility] at [facility] [address] [place] [address] Fidel Vasquez MD from Last 3 Months Immunizations Immunization Administration [...] Years Used Date Smoking Tobacco: Former Cigarettes 0 Q uit: 1975 Smokeless Tobacco: Never Tobacco [...] Date Last Done Comments [facility]-Depression Screening 1938 [facility]-Medicare Annual Wellness (AWV) 1938 [facility]-Infant/Child/Adol SDOH Screenings 1938 Y- SDOH Screenings 1956 [facility]-Adult SDOH Screenings 1956 [facility]-DTaP,Tdap,and Td Vaccines (1 - Tdap) 1957 [facility]-Zoster Vaccines (1 of 2) 1957 [facility]-Bone Density Scan 05/13/2022 05/13/2020 , 05/13/2020, 06/21/2017, Additional history exists [facility]-ILTOZ-55 Vaccine ( season) 2025 04/22/2024, 07/03/2023, 05/30/2022, Additional history exists [facility]-Influenza Vaccine (#1) 03/15/202504/15, 05/03/2023, 05/22/2022, Additional history exists [facility]-Pneumococcal Vaccine: 50+ Years Completed 05/07/2023, 07/15/2018, 05/31/2018, Additional history exists [facility]-RSV Vaccine: 60+ Years or Completed 04/22/2024, 07/03/2023 HPV Vaccines (No Doses Required) Completed [facility]-HIB Vaccines Aged Out No longer e [...] Date/Time Associated Diagnosis Comments FERRITIN, SERUM Routine 05/31/2025 12:19 PM EST IRON & TOTAL IRON BINDING CAPACITY, PLASMA (INCLUDES TRANSFERRIN) Routine 05/31/2025 12:19 PM EST COMPREHENSIVE METABOLIC PANEL, PLASMA Routine 05/31/2025 12:19 PM EST CBC WITH AUTO DIFFERENTIAL Routine 05/31/2025 12:19 PM EST from Last 3 Months Results * Iron & Total Iron Binding Capacity, Plasma (Includes Transferrin) (05/31/2025 12:19 PM EST) External Iron 117 37 - 145 ug/dL 05/31/2025 5:24 PM EST [facility] External Total Iron Binding Capacity 404 250 - 450 ug/dL (calc) 05/31/2025 5:24 PM EST [facility] External Unsaturated Iron Binding Capacity 287 112 - 347 ug/dL 05/31/2025 5:24 PM EST [facility] External Iron-Saturation% 29 15 - 50 % (calc) 05/31/2025 5:24 PM EST [facility] 05/31/2025 12:1 9 PM EST 05/31/2025 4:53 PM EST us Fidel Vasquez MD LAB BLOOD ORDERABLES Final R esult [facility] [place] [address], * (ABNORMAL) CBC and Differential (05/31/2025 12:19 PM EST) [facility] External WBC 6.7 3.8 - 10.8 10*3/uL 05/31/2025 3:49 PM EST [facility] External Red Blood Cell (RBC) 3.82 3.80 - 5.20 10*6/uL 05/31/2025 3:49 PM EST [facility] External Hemoglobin 12.3 12.0 - 16.0 g/dL 05/31/2025 3:49 PM EST [facility] External Hematocrit 35.9 35.0 - 47.0 % 05/31/2025 3:49 PM EST [facility] External MCV 94 80 - 100 fL 05/31/2025 3:49 PM EST [facility] External MCH 32 26 - 35 pg 05/31/2025 3:49 PM EST [facility] External MCHC 34 32 - 36 g/dL 05/31/2025 3:49 PM EST [facility] External RDW 14.7 11.0 - 15.0 % 05/31/2025 3:49 PM EST [facility] External Mean Platelet Volume 7.6 6.2 - 10.5 fL 05/31/2025 3:49 PM EST [facility] External Platelet Count (Plt) 270 150 - 400 10*3/uL 05/31/2025 3:49 PM EST [facility] External Neutrophil# 5.8 1.6 - 8.4 10*3/uL 05/31/2025 3:49 PM EST [facility] External Lymphocyte# 0.4 0.4 - 5.1 10*3/uL 05/31/2025 3:49 PM EST [facility] External Absolute Monocyte (Abs Prentiss) 0.4 0.0 - 1.2 10*3/uL 05/31/2025 3:49 PM EST [facility] External Eosinophils# 0.1 0.0 - 0.8 10*3/uL 05/31/2025 3:49 PM EST [facility] External Baso# 0.0 0.0 - 0.3 10*3/uL 05/31/2025 3:49 PM EST [facility] External Neutrophils % 86.7(H) 42.0 - 78.0 % 05/31/2025 3:49 PM EST [facility] External Lymphocyte % 6.6(L) 11.0 - 47.0 % 05/31/2025 3:49 PM EST [facility] External Monocyte % 5.4 0.0 - 11.0 % 05/31/2025 3:49 PM EST [facility] External Eosinophil% 0.9 0.0 - 7.0 % 05/31/2025 3:49 PM EST [facility] External Basophil % 0.4 0.0 - 3.0 % 05/31/2025 3:49 PM EST [facility] External Nucleated RBC%-Auto 0.2 0.0 - 0.9 % 05/31/2025 3:49 PM EST [facility] External Nucleated RBC Absolute 0.01 Not Estab. 10*3/uL 05/31/2025 3:49 PM [facility] 05/31/2025 12:1 9 PM EST 05/31/2025 3:16 PM EST us Fidel Vasquez MD LAB BLOOD ORDERABLES Final R esult [facility] [address] [place] [address], * Ferritin, Serum (05/31/2025 12:19 PM EST) External Ferritin 131 13 - 157 ng/mL 05/31/2025 5:24 PM EST [facility] 05/31/2025 12:1 9 PM EST 05/31/2025 4:53 PM EST Fidel Vasquez MD LAB BLOOD ORDERABLES Final R esult [facility] [address] [place] [address], * (ABNORMAL) Comprehensive Metabolic Panel, Plasma (05/31/2025 12:19 PM EST) Pathologist [facility] External Glucose 89 74 - 100 mg/dL 05/31/2025 5:24 PM EST [facility] External BUN 22(H) 6 - 20 mg/dL 05/31/2025 5:24 PM [facility] External Creatinine Blood 1.16(H) 0.50 - 0.95 mg/dL 05/31/2025 5:24 PM EST [facility] External BUN/Creat Ratio 19 10 - 20 (calc) 05/31/2025 5:24 PM EST [facility] External Sodium 141 136 - 145 mmol/L 05/31/2025 5:24 PM EST [facility] External Potassium 3.9 3.4 - 5.0 mmol/L 05/31/2025 5:24 PM EST [facility] External Chloride 103 98 - 107 mmol/L 05/31/2025 5:24 PM EST [facility] External Carbon Dioxide (CO2) 25 22 - 31 mmol/L 05/31/2025 5:24 PM EST [facility] External Anion Gap (AG) 13 7 - 25 (calc) 05/31/2025 5:24 PM EST [facility] External Calcium 8.8 8.6 - 10.2 mg/dL 05/31/2025 5:24 PM [facility] External Total Protein 6.7 6.4 - 8.3 g/dL 05/31/2025 5:24 PM EST [facility] External Albumin 4.1 3.5 - 5.2 g/dL 05/31/2025 5:24 PM EST [facility] External Globulin 2.6 1.5 - 4.5 025 5:24 PM EST [facility] External Albumin/Globulin Ratio 1.6 1.1 - 2.5 (calc) 05/31/2025 5:24 PM EST [facility] External Bilirubin Total 0.3 0.1 - 1.0 mg/dL 05/31/2025 5:24 PM EST [facility] Comment:NOTE: New reference range. External Alkaline Phosphatase 57 30 - 121 U/L 05/31/2025 5:24 PM EST [facility] External AST (SGOT) 19 0 - 32 U/L 05/31/2025 5:24 PM EST [facility] External ALT (SGPT) 10 0 - 33 U/L 05/31/2025 5:24 PM EST [facility] External Estimated GFR 46(A) >=60 05/31/2025 5:24 PM EST [facility] Comment: NOTE New calculation for GFR (CKD-EPI 2020) is formulated without race adjustment factors at the recommendation of the National Kidney Foundation and [place] [employer]ph[employer]. This calculation has not been validated in women. For pediatric patients refer to https://www.kidney.org/professionals/KDOQI/gfr_calculatorPed 05/31/2025 12:1 9 PM EST 05/31/2025 4:53 PM EST Fidel Vasquez MD LAB BLOOD ORDERABLES Final R esult [facility] [address] [place] [address], from Last 3 Months [place] [address] [employer] Care Teams Industrial Safety And Health Manager Relationship Specialty Start Date End Date Edson Pendleton MD [address] [facility] [address] [place] [address] PCP - General 10/21/23 Sal Mar MD [address] [place] [address] Medical Oncologist Hematology and Oncology 10/16/23
--- OUTSIDE RECORDS SUMMARY | 2025-07-02 17:03 | XMS_ITS | Encounter Summary ---
Author Organization [facility] Address [address] [place] [address] Care Team Providers Care Rn Wound Care Name Role Phone System, Provider Not In MD Primary Care Provider Unavailable Sal Mar MD Unavailable [phone] Edson Pendleton MD Primary Care Provider [phone] Encounter Details Date Type Department Care Team (Late st Contact Info) Description 01/03/2022 Orders Only [facility] [address] [place] [address] Fidel Vasquez MD [address] [place], [place] [id number] Social History Tobacco Use Types Packs/Day Years [...] 6-TGN 212(L) 235 - 400 pmol/8x10( 8)RBC [facility] Comment: This test was developed and its analytical performance characteristics have been determined by [employer]. It has not been cleared or approved by the FDA. This assay has been validated pursuant to the CLIA regulations and is used for clinical purposes. EXTERNAL 6-MMPN <500 <5700 pmol/8x10( 8)RBC [facility] Comment: These results are useful [...] analytical performance characteristics have been determined by [employer]. It has not been cleared or approved by the FDA. This assay has been validated pursuant to the CLIA regulations and is used for clinical purposes. TEST PERFORMED AT: [facility] [address] [address] MICHAELA FRANCIS MD 01/03/2022 4:15 PM EDT 01/03/2022 5:15 PM EDT us Fidel Vasquez MD LAB BLOOD ORDERABLES Final R esult [facility] [address] [place] [address], documented in this encounter Visit Diagnoses Not on filedocumented in this encounter Care Teams Rn Wound Care Relationship Specialty Start Date End Date System, Provider Not In, [address] [place] [address] PCP - General Family Medicine 07/15/21 10/20/23 Edson Pendleton MD [address] [place] [address] PCP - General 10/21/23 Sal Mar MD [address] [place] [address] Medical Oncologist Hematology and Oncology 10/16/23 documented as of this encounter
--- OUTSIDE RECORDS SUMMARY | 2025-07-02 17:03 | XMS_ITS | Encounter Summary ---
Author Organization [facility] Address [address] [place] [address] Care Team Providers Care Senior Lead Software Engineer Name Role Phone System, Provider Not In MD Primary Care Provider Unavailable Sal Mar MD Unavailable [phone] Edson Pendleton MD Primary Care Provider [phone] Encounter Details Date Type Department Care Team (Late st Contact Info) Description 11/08/2022 Orders Only [facility] [address] [place] [address] Sal Mar MD [address] [id number] Social History Tobacco Use Types Packs/Day Years [...] External WBC 4.3 3.8 - 10.8 K/uL [facility] External Red Blood Cell (RBC) 3.16(L) 3.80 - 5.20 M/uL [facility] External Hemoglobin 9.9(L) 12.0 - 16.0 G/DL [facility] External Hematocrit 29.0(L) 35.0 - 47.0 % [facility] External MCV 92 80 - 100 fL [facility] External MCH 31 26 - 35 PG [facility] External MCHC 34 32 - 36 G/DL [facility] External RDW 14.3 11.0 - 15.0 % [facility] External Mean Platelet Volume 7.2 6.2 - 10.5 fL [facility] External Platelets 206 130 - 400 K/uL [facility] External Neutrophil# 3.2 1.6 - 8.4 K/uL [facility] External Lymphocyte# 0.6 0.4 - 5.1 K/uL [facility] External Absolute Monocyte (Abs Mcclain) 0.4 0.0 - 1.2 K/uL [facility] External Eosinophils# 0.1 0.0 - 0.8 K/uL [facility] External Baso# 0.1 0.0 - 0.3 K/uL [facility] External Neutrophils % 74.1 42.0 - 78.0 % [facility] External Lymphocyte % 14.0 11.0 - 47.0 % [facility] External Monocyte % 8.2 0.0 - 11.0 % [facility] External Eosinophil% 2.5 0.0 - 7.0 % [facility] External Basophil % 1.2 0.0 - 3.0 % [facility] External Nucleated RBC%-Auto 0.0 0.0 - 0.9 % [facility] External Nucleated RBC Absolute 0.00 Not Estab. K/uL [facility] 11/08/2022 12:4 5 PM EDT 11/08/2022 12:53 PM EDT us Sal Mar MD LAB BLOOD ORDERABLES Final Res ult [facility] [address] [place] [id number], documented in this encounter Visit Diagnoses Not on filedocumented in this encounter Care Teams Senior Lead Software Engineer Relationship Specialty Start Date End Date System, Provider Not In, [address] [place] [address] PCP - General Family Medicine 07/15/21 10/20/23 Edson Pendleton MD [address] [place] [address] PCP - General 10/21/23 Sal Mar MD [address] [place] [address] Medical Oncologist Hematology and Oncology 10/16/23 documented as of this encounter
--- OUTSIDE RECORDS SUMMARY | 2025-07-02 17:03 | XMS_ITS | Encounter Summary ---
Author Organization [facility] Address [address] [place] [address] Care Team Providers Care Computer Technology Trainer Name Role Phone System, Provider Not In MD Primary Care Provider Unavailable Sal Mar MD Unavailable [phone] Edson Pendleton MD Primary Care Provider [phone] Encounter Details Date Type Department Care Team (Late st Contact Info) Description 11/09/2021 Orders Only [facility] [address] [place] [address] Sal Mar MD [address] [phone] Social History Tobacco Use Types Packs/Day Years [...] External WBC 3.9 3.8 - 10.8 K/uL [facility] External Red Blood Cell (RBC) 3.18(L) 3.80 - 5.20 M/uL [facility] External Hemoglobin 9.5(L) 12.0 - 16.0 G/DL [facility] External Hematocrit 27.0(L) 35.0 - 47.0 % [facility] External MCV 85 80 - 100 fL [facility] External MCH 30 26 - 35 PG [facility] External MCHC 35 32 - 36 G/DL [facility] External RDW 15.0 11.0 - 15.0 % [facility] External Mean Platelet Volume 7.2 6.2 - 10.5 fL [facility] External Platelets 228 130 - 400 K/uL [facility] External Neutrophil# 2.9 1.6 - 8.4 K/uL [facility] External Lymphocyte# 0.6 0.4 - 5.1 K/uL [facility] External Absolute Monocyte (Abs Forrest) 0.3 0.0 - 1.2 K/uL [facility] External Eosinophils# 0.1 0.0 - 0.8 K/uL [facility] External Baso# 0.0 0.0 - 0.3 K/uL [facility] External Neutrophils % 73.4 42.0 - 78.0 % [facility] External Lymphocyte % 16.4 11.0 - 47.0 % [facility] External Monocyte % 6.8 0.0 - 11.0 % [facility] External Eosinophil% 2.3 0.0 - 7.0 % [facility] External Basophil % 1.1 0.0 - 3.0 % [facility] External Nucleated RBC%-Auto 0.1 0.0 - 0.9 % [facility] External Nucleated RBC Absolute 0.00 Not Estab. K/uL [facility] 11/09/2021 3:53 PM EDT 11/09/2021 6:01 PM EDT us Sal Mar MD LAB BLOOD ORDERABLES Final Res ult [facility] [address] [place] [address], documented in this encounter Visit Diagnoses Not on filedocumented in this encounter Care Teams Computer Technology Trainer Relationship Specialty Start Date End Date System, Provider Not In, [address] [place] [address] PCP - General Family Medicine 07/15/21 10/20/23 Edson Pendleton MD [address] [place] [address] PCP - General 10/21/23 Sal Mar MD [address] [place] [address] Medical Oncologist Hematology and Oncology 10/16/23 documented as of this encounter
--- OUTSIDE RECORDS SUMMARY | 2025-07-02 17:03 | XMS_ITS | Encounter Summary ---
Author Organization [facility] Address [address] [place] [address] Care Team Providers Care Mining Engineer Name Role Phone System, Provider Not In MD Primary Care Provider Unavailable Sal Mar MD Unavailable [phone] Edson Pendleton MD Primary Care Provider [phone] Encounter Details Date Type Department Care Team (Late st Contact Info) Description 07/19/2022 Orders Only [facility] @ [facility] [address] [place] [address] Fidel Vasquez MD [address] [place], [place] [phone] Social History Tobacco Use Types Packs/Day Years [...] External Ferritin 14 13 - 157 ng/mL [facility] 07/19/2022 3:24 PM EST 07/19/2022 3:56 PM EST Fidel Vasquez MD LAB BLOOD ORDERABLES Final R esult [facility] [address] [place] [address], documented in this encounter Visit Diagnoses Not on filedocumented in this encounter Care Teams Mining Engineer Relationship Specialty Start Date End Date System, Provider Not In, [address] [place] [address] PCP - General Family Medicine 07/15/21 10/20/23 Edson Pendleton MD [address] [facility] [address] [place] [address] PCP - General 10/21/23 Sal Mar MD [address] [place] [id number] Medical Oncologist Hematology and Oncology 10/16/23 documented as of this encounter
--- OUTSIDE RECORDS SUMMARY | 2025-07-02 17:03 | XMS_ITS | Encounter Summary ---
Author Organization [facility] Address [address] [place] [address] Care Team Providers Care Computer Specialist Name Role Phone System, Provider Not In MD Primary Care Provider Unavailable Sal Mar MD Unavailable [phone] Edson Pendleton MD Primary Care Provider [phone] Encounter Details Date Type Department Care Team (Late st Contact Info) Description 07/19/2022 Orders Only [facility] [address] [place] [address] Fidel Vasquez MD [address] [place], [place] [id number] Social History Tobacco Use Types Packs/Day Years [...] C-Reactive Protein <0.06 0.00 - 0.49 mg/dL [facility] 07/19/2022 3:24 PM EST 07/19/2022 3:56 PM EST Fidel Vasquez MD LAB BLOOD ORDERABLES Final R esult [facility] [address] [place] [address], documented in this encounter Visit Diagnoses Not on filedocumented in this encounter Care Teams Computer Specialist Relationship Specialty Start Date End Date System, Provider Not In, [address] [place] [address] PCP - General Family Medicine 07/15/21 10/20/23 Edson Pendleton MD [address] [place] [address] PCP - General 10/21/23 Sal Mar MD [address] [place] [address] Medical Oncologist Hematology and Oncology 10/16/23 documented as of this encounter
[2025-07-02 17:04] LABS: Hematocrit 37.2 % (37.0-47.0); Hemoglobin 12.2 g/dL (12.2-16.2); Immature Granulocytes % 4.0 %; Mean Corpuscular HGB Conc 32.8 g/dL (31.8-35.4); Mean Corpuscular Hemoglobin 32.1 pg (27.0-31.2); Mean Corpuscular Volume 97.9 fl (81-99); Nucleated Red Blood Cells % 0 %; Platelet Count 269 K/mm3 (142-424); Red Blood Count 3.80 M/mm3 (4.20-5.40); Red Cell Distribution Width-SD 45.6 fL; White Blood Count 6.8 K/mm3 (4.8-10.8)
--- OUTSIDE RECORDS SUMMARY | 2025-07-02 17:04 | XMS_ITS | Data Portability ---
Author Organization [facility] Address [address] [place] [address] Care Team Providers Care Departure Clerk Name Role Phone STEWART DWYER Reed Repairer CHANEL KAMARA Hematology/Oncology ALIE VASQUEZ Sanitation Truck Driver [phone] AIDEN GAMBLE Primary Care Provider [phone] CODEY YATES Commander Internal Affairs NINA STONE Buffing Wheel Presser NILTON ANTUNEZ Steam Power Plant Operator Assessment Encounter Date Assessment Date Assessment LastModified [...] available LEVEL 1 2025 01:30P M STEWART DWYER MD Not available Not [...] 3.9 K/uL 3.8-10 .8 normal Not Available [facility] [address] [place] [address], [address], 11/09/2021 18:13:18 11/10/19 22 11/09/2021 COMPL ETE BLOOD COUNT red blood cells 3.18 M/uL 3.80-5 .20 low Not Available [facility] [address] [place], [address], 11/09/2021 18:13:18 11/10/19 22 11/09/2021 COMPL ETE BLOOD COUNT hemoglobin 9.5 g/dL 12.0-1 6.0 low Not Available [facility] [place], [address], 11/09/2021 18:13:18 11/10/19 22 11/09/2021 COMPL ETE BLOOD COUNT hematocrit 27.0 % 35.0-4 7.0 low Not Available [facility] [address] [place] [address], [address], 11/09/2021 18:13:18 11/10/19 22 11/09/2021 COMPL ETE BLOOD COUNT MCV 85 fL 80-100 normal Not Available [facility] [address] [place] [address], [address], 11/09/2021 18:13:18 11/10/19 22 11/09/2021 COMPL ETE BLOOD COUNT MCH 30 pg 26-35 normal Not Available [facility] [address] [place] [address], [address], 11/09/2021 18:13:18 11/10/19 22 11/09/2021 COMPL ETE BLOOD COUNT MCHC 35 g/dL 32-36 normal Not Available [facility] [address] [place] [address], [address], 11/09/2021 18:13:18 11/10/19 22 11/09/2021 COMPL ETE BLOOD COUNT RDW 15.0 % 11.0-1 5.0 normal Not Available [facility] [address] [place] [address], [address], 11/09/2021 18:13:18 11/10/19 22 11/09/2021 COMPL ETE BLOOD COUNT MPV 7.2 fL 6.2-10 .5 normal Not Available [facility] [address] [place] [address], [address], 11/09/2021 18:13:18 11/10/19 22 11/09/2021 COMPL ETE BLOOD COUNT platelet count 228 K/uL 130-40 0 normal Not Available [facility] [address] [place] [address], [address], 11/09/2021 18:13:18 11/10/19 22 11/09/2021 COMPL ETE BLOOD COUNT neutrophil,a bsolute 2.9 K/uL 1.6-8. 4 normal Not Available [facility] [address] [place] [address], [address], 11/09/2021 18:13:18 11/10/19 22 11/09/2021 COMPL ETE BLOOD COUNT lymphocyte,a bsolute 0.6 K/uL 0.4-5. 1 normal Not Available [facility] [address] [place] [address], [address], 11/09/2021 18:13:18 11/10/19 22 11/09/2021 COMPL ETE BLOOD COUNT monocyte,abs olute 0.3 K/uL 0.0-1. 2 normal Not Available [facility] [address] [place] [address], [address], 11/09/2021 18:13:18 11/10/19 22 11/09/2021 COMPL ETE BLOOD COUNT eosinophil,a bsolute 0.1 K/uL 0.0-0. 8 normal Not Available [facility] [address] [place] [address], [address], 11/09/2021 18:13:18 11/10/19 22 11/09/2021 COMPL ETE BLOOD COUNT basophil,abs olute 0.0 K/uL 0.0-0. 3 normal Not Available [facility] [address] [place] [address], [address], 11/09/2021 18:13:18 11/10/19 22 11/09/2021 COMPL ETE BLOOD COUNT % neutrophils 73.4 % 42.0-7 8.0 normal Not Available [facility] [address] [place] [address], [address], 11/09/2021 18:13:18 11/10/19 22 11/09/2021 COMPL ETE BLOOD COUNT % lymphocytes 16.4 % 11.0-4 7.0 normal Not Available [facility] [address] [place] [address], [address], 11/09/2021 18:13:18 11/10/19 22 11/09/2021 COMPL ETE BLOOD COUNT % monocytes 6.8 % 0.0-11 .0 normal Not Available [facility] [address] [place] [address], [address], 11/09/2021 18:13:18 11/10/19 22 11/09/2021 COMPL ETE BLOOD COUNT % eosinophils 2.3 % 0.0-7. 0 normal Not Available [facility] [address] [place] [address], [address], 11/09/2021 18:13:18 11/10/19 22 11/09/2021 COMPL ETE BLOOD COUNT % basophils 1.1 % 0.0-3. 0 normal Not Available [facility] [address] [place] [address], [address], 11/09/2021 18:13:18 11/10/19 22 11/09/2021 COMPL ETE BLOOD COUNT nucleated red cells 0.1 % 0.0-0. 9 normal Not Available [facility] [address] [place] [address], [address], 11/09/2021 18:13:18 11/10/19 22 11/09/2021 COMPL ETE BLOOD COUNT nucleated RBCs, absolute 0.00 K/uL not estab. normal Not Available [facility] [address] [place] [address], [address], 11/09/2021 18:13:18 11/10/19 22 11/09/2021 JUANA TIN ferritin 9 NG/mL 13-157 low Not Available [facility] [address] [place] [address], [address], 11/09/2021 20:08:34 11/10/19 22 11/09/2021 IRON PANEL -TOTA L AND TIBC iron 32 ug/dL 37-145 low Not Available [facility] [address] [place] [address], [address], 11/09/2021 20:08:36 11/10/19 22 11/09/2021 IRON PANEL -TOTA L AND TIBC total iron binding cap. 524 ug/dL _(kyree c) 250-45 0 high Not Available [facility] [address] [place] [address], [address], 11/09/2021 20:08:36 11/10/19 22 11/09/2021 IRON PANEL -TOTA L AND TIBC unsat.iron binding cap. 492 ug/dL 112-34 7 high Not Available [facility] [address] [place] [address], [address], 11/09/2021 20:08:36 11/10/19 22 11/09/2021 IRON PANEL -TOTA L AND TIBC % saturation 6 %_(ca lc) 15-50 low Not Available [facility] [address] [place] [address], [address], 11/09/2021 20:08:36 11/10/19 22 11/09/2021 COMP. METAB OLIC PANEL glucose 89 mg/dL 74-100 normal Not Available [facility] [address] [place] [address], [address], 11/09/2021 20:08:37 11/10/19 22 11/09/2021 COMP. METAB OLIC PANEL blood urea nitrogen 17 mg/dL 6-20 normal Not Available [facility] [address] [place] [address], [address], 11/09/2021 20:08:37 11/10/19 22 11/09/2021 COMP. METAB OLIC PANEL creatinine 1.47 mg/dL 0.50-0 .95 high Not Available [facility] [address] [place] [address], [address], 11/09/2021 20:08:37 11/10/19 22 11/09/2021 COMP. METAB OLIC PANEL BUN/creatini ne ratio 12 (calc ) 10-20 normal Not Available [facility] [address] [place] [address], [address], 11/09/2021 20:08:37 11/10/19 22 11/09/2021 COMP. METAB OLIC PANEL sodium 141 mmol/ L 136-14 5 normal Not Available [facility] [address] [place] [address], [address], 11/09/2021 20:08:37 11/10/19 22 11/09/2021 COMP. METAB OLIC PANEL potassium 3.7 mmol/ L 3.4-5. 0 normal Not Available [facility] [address] [place] [address], [address], 11/09/2021 20:08:37 11/10/19 22 11/09/2021 COMP. METAB OLIC PANEL chloride 105 mmol/ L 98-107 normal Not Available [facility] [address] [place] [address], [address], 11/09/2021 20:08:37 11/10/19 22 11/09/2021 COMP. METAB OLIC PANEL carbon dioxide 24 mmol/ L 22-31 normal Not Available [facility] [address] [place] [address], [address], 11/09/2021 20:08:37 11/10/19 22 11/09/2021 COMP. METAB OLIC PANEL anion gap 12 (calc ) 7-25 normal Not Available [facility] [address] [place] [address], [address], 11/09/2021 20:08:37 11/10/19 22 11/09/2021 COMP. METAB OLIC PANEL calcium 8.9 mg/dL 8.6-10 .2 normal Not Available [facility] [address] [place] [address], [address], 11/09/2021 20:08:37 11/10/19 22 11/09/2021 COMP. METAB OLIC PANEL total protein 6.5 g/dL 6.4-8. 3 normal Not Available [facility] [address] [place] [address], [address], 11/09/2021 20:08:37 11/10/19 22 11/09/2021 COMP. METAB OLIC PANEL albumin 4.3 g/dL 3.5-5. 2 normal Not Available [facility] [address] [place] [address], [address], 11/09/2021 20:08:37 11/10/19 22 11/09/2021 COMP. METAB OLIC PANEL globulin 2.2 g/dL_ (calc ) 1.5-4. 5 normal Not Available [facility] [address] [place] [address], [address], 11/09/2021 20:08:37 11/10/19 22 11/09/2021 COMP. METAB OLIC PANEL albumin/glob ulin ratio 2.0 (calc ) 1.1-2. 5 normal Not Available [facility] [address] [place] [address], [address], 11/09/2021 20:08:37 11/10/19 22 11/09/2021 COMP. METAB OLIC PANEL bilirubin, total 0.2 mg/dL 0.1-1. 2 normal Not Available [facility] [address] [place] [address], [address], 11/09/2021 20:08:37 11/10/19 22 11/09/2021 COMP. METAB OLIC PANEL alkaline phosphatase 57 U/L 30-121 normal Not Available [facility] [address] [place] [address], [address], 11/09/2021 20:08:37 11/10/19 22 11/09/2021 COMP. METAB OLIC PANEL AST 27 U/L 0-32 normal Not Available [facility] [address] [place] [address], [address], 11/09/2021 20:08:37 11/10/19 22 11/09/2021 COMP. METAB OLIC PANEL ALT 17 U/L 0-33 normal Not Available [facility] [address] [place] [address], [address], 11/09/2021 20:08:37 11/10/19 22 11/09/2021 COMP. METAB OLIC PANEL GFR 38 >= 60 abnormal Not Available [facility] [address] [place] [address], [address], 11/09/2021 20:08:37 11/10/19 22 11/09/2021 COMP. METAB [...] For pedia tric patie nts refer to Zohra Carr y Found ation https ://[email or web address] rg/pr ofess ional s/KDO QI/gf r_cal culat orPed Not Available [facility] [address] [place] [address], [address], 11/09/2021 20:08:37 02/09/20 22 02/08/2022 COMPL ETE BLOOD COUNT white blood cells 4.3 K/uL 3.8-10 .8 normal Not Available [facility] [address] [place] [address], [address], 02/08/2022 14:36:51 02/09/20 22 02/08/2022 COMPL ETE BLOOD COUNT red blood cells 3.61 M/uL 3.80-5 .20 low Not Available [facility] [address] [place] [address], [address], 02/08/2022 14:36:51 02/09/20 22 02/08/2022 COMPL ETE BLOOD COUNT hemoglobin 11.5 g/dL 12.0-1 6.0 low Not Available [facility] [address] [place] [address], [address], 02/08/2022 14:36:51 02/09/20 22 02/08/2022 COMPL ETE BLOOD COUNT hematocrit 32.7 % 35.0-4 7.0 low Not Available [facility] [address] [place] [address], [address], 02/08/2022 14:36:51 02/09/20 22 02/08/2022 COMPL ETE BLOOD COUNT MCV 91 fL 80-100 normal Not Available [facility] [address] [place] [address], [address], 02/08/2022 14:36:51 02/09/20 22 02/08/2022 COMPL ETE BLOOD COUNT MCH 32 pg 26-35 normal Not Available [facility] [address] [place] [address], [address], 02/08/2022 14:36:51 02/09/20 22 02/08/2022 COMPL ETE BLOOD COUNT MCHC 35 g/dL 32-36 normal Not Available [facility] [address] [place] [address], [address], 02/08/2022 14:36:51 02/09/20 22 02/08/2022 COMPL ETE BLOOD COUNT RDW 14.1 % 11.0-1 5.0 normal Not Available [facility] [address] [place] [address], [address], 02/08/2022 14:36:51 02/09/20 22 02/08/2022 COMPL ETE BLOOD COUNT MPV 7.1 fL 6.2-10 .5 normal Not Available [facility] [address] [place] [address], [address], 02/08/2022 14:36:51 02/09/20 22 02/08/2022 COMPL ETE BLOOD COUNT platelet count 216 K/uL 130-40 0 normal Not Available [facility] [address] [place] [address], [address], 02/08/2022 14:36:51 02/09/20 22 02/08/2022 COMPL ETE BLOOD COUNT neutrophil,a bsolute 3.2 K/uL 1.6-8. 4 normal Not Available [facility] [address] [place] [address], [address], 02/08/2022 14:36:51 02/09/20 22 02/08/2022 COMPL ETE BLOOD COUNT lymphocyte,a bsolute 0.6 K/uL 0.4-5. 1 normal Not Available [facility] [address] [place] [address], [address], 02/08/2022 14:36:51 02/09/20 22 02/08/2022 COMPL ETE BLOOD COUNT monocyte,abs olute 0.4 K/uL 0.0-1. 2 normal Not Available [facility] [address] [place] [address], [address], 02/08/2022 14:36:51 02/09/20 22 02/08/2022 COMPL ETE BLOOD COUNT eosinophil,a bsolute 0.1 K/uL 0.0-0. 8 normal Not Available [facility] [address] [place] [address], [address], 02/08/2022 14:36:51 02/09/20 22 02/08/2022 COMPL ETE BLOOD COUNT basophil,abs olute 0.1 K/uL 0.0-0. 3 normal Not Available [facility] [address] [place] [address], [address], 02/08/2022 14:36:51 02/09/20 22 02/08/2022 COMPL ETE BLOOD COUNT % neutrophils 74.5 % 42.0-7 8.0 normal Not Available [facility] [address] [place] [address], [address], 02/08/2022 14:36:51 02/09/20 22 02/08/2022 COMPL ETE BLOOD COUNT % lymphocytes 13.0 % 11.0-4 7.0 normal Not Available [facility] [address] [place] [address], [address], 02/08/2022 14:36:51 02/09/20 22 02/08/2022 COMPL ETE BLOOD COUNT % monocytes 8.8 % 0.0-11 .0 normal Not Available [facility] [address] [place] [address], [address], 02/08/2022 14:36:51 02/09/20 22 02/08/2022 COMPL ETE BLOOD COUNT % eosinophils 2.4 % 0.0-7. 0 normal Not Available [facility] [address] [place] [address], [address], 02/08/2022 14:36:51 02/09/20 22 02/08/2022 COMPL ETE BLOOD COUNT % basophils 1.3 % 0.0-3. 0 normal Not Available [facility] [address] [place] [address], [address], 02/08/2022 14:36:51 02/09/20 22 02/08/2022 COMPL ETE BLOOD COUNT nucleated red cells 0.1 % 0.0-0. 9 normal Not Available [facility] [address] [place] [address], [address], 02/08/2022 14:36:51 02/09/20 22 02/08/2022 COMPL ETE BLOOD COUNT nucleated RBCs, absolute 0.00 K/uL not estab. normal Not Available [facility] [address] [place] [address], [address], 02/08/2022 14:36:51 02/09/20 22 02/08/2022 COMP. METAB OLIC PANEL glucose 106 mg/dL 74-100 high Not Available [facility] [address] [place] [address], [address], 02/08/2022 15:12:01 02/09/20 22 02/08/2022 COMP. METAB OLIC PANEL blood urea nitrogen 27 mg/dL 6-20 high Not Available [facility] [address] [place] [address], [address], 02/08/2022 15:12:01 02/09/20 22 02/08/2022 COMP. METAB OLIC PANEL creatinine 1.59 mg/dL 0.50-0 .95 high Not Available [facility] [address] [place] [address], [address], 02/08/2022 15:12:01 02/09/20 22 02/08/2022 COMP. METAB OLIC PANEL BUN/creatini ne ratio 17 (calc ) 10-20 normal Not Available [facility] [address] [place] [address], [address], 02/08/2022 15:12:01 02/09/20 22 02/08/2022 COMP. METAB OLIC PANEL sodium 141 mmol/ L 136-14 5 normal Not Available [facility] [address] [place] [address], [address], 02/08/2022 15:12:01 02/09/20 22 02/08/2022 COMP. METAB OLIC PANEL potassium 4.0 mmol/ L 3.4-5. 0 normal Not Available [facility] [address] [place] [address], [address], 02/08/2022 15:12:01 02/09/20 22 02/08/2022 COMP. METAB OLIC PANEL chloride 103 mmol/ L 98-107 normal Not Available [facility] [address] [place] [address], [address], 02/08/2022 15:12:01 02/09/20 22 02/08/2022 COMP. METAB OLIC PANEL carbon dioxide 26 mmol/ L 22-31 normal Not Available [facility] [address] [place] [address], [address], 02/08/2022 15:12:01 02/09/20 22 02/08/2022 COMP. METAB OLIC PANEL anion gap 12 (calc ) 7-25 normal Not Available [facility] [address] [place] [address], [address], 02/08/2022 15:12:01 02/09/20 22 02/08/2022 COMP. METAB OLIC PANEL calcium 9.3 mg/dL 8.6-10 .2 normal Not Available [facility] [address] [place] [address], [address], 02/08/2022 15:12:01 02/09/20 22 02/08/2022 COMP. METAB OLIC PANEL total protein 6.1 g/dL 6.4-8. 3 low Not Available [facility] [address] [place] [address], [address], 02/08/2022 15:12:01 02/09/20 22 02/08/2022 COMP. METAB OLIC PANEL albumin 4.1 g/dL 3.5-5. 2 normal Not Available [facility] [address] [place] [address], [address], 02/08/2022 15:12:01 02/09/20 22 02/08/2022 COMP. METAB OLIC PANEL globulin 2.0 g/dL_ (calc ) 1.5-4. 5 normal Not Available [facility] [address] [place] [address], [address], 02/08/2022 15:12:01 02/09/20 22 02/08/2022 COMP. METAB OLIC PANEL albumin/glob ulin ratio 2.1 (calc ) 1.1-2. 5 normal Not Available [facility] [address] [place] [address], [address], 02/08/2022 15:12:01 02/09/20 22 02/08/2022 COMP. METAB OLIC PANEL bilirubin, total 0.3 mg/dL 0.1-1. 2 normal Not Available [facility] [address] [place] [address], [address], 02/08/2022 15:12:01 02/09/20 22 02/08/2022 COMP. METAB OLIC PANEL alkaline phosphatase 47 U/L 30-121 normal Not Available [facility] [address] [place] [address], [address], 02/08/2022 15:12:01 02/09/20 22 02/08/2022 COMP. METAB OLIC PANEL AST 19 U/L 0-32 normal Not Available [facility] [address] [place] [address], [address], 02/08/2022 15:12:01 02/09/20 22 02/08/2022 COMP. METAB OLIC PANEL ALT 13 U/L 0-33 normal Not Available [facility] [address] [place] [address], [address], 02/08/2022 15:12:01 02/09/20 22 02/08/2022 COMP. METAB OLIC PANEL GFR 32 >= 60 abnormal NOT E New calcu latio n for GFR (CKD- EPI 2020) is formu lated witho ut race adjus tment facto rs at the recom menda tion of the Zohra Carr y Mele claudio and [facility]un[facility] Del [facility] of Nephr ology . This calcu latio n has not been valid ated in pregn ant women . For pedia tric patie nts refer to https :[email or web address] [email or web address].o rg/pr ofess ional s/KDO QI/gf r_cal culat orPed Not Available [facility] [address] [place] [address], [address], 02/08/2022 15:12:01 02/09/20 22 02/08/2022 JUANA TIN ferritin 94 NG/mL 13-157 normal Not Available [facility] [address] [place] [address], [address], 02/08/2022 15:12:02 02/09/20 22 02/08/2022 IRON PANEL -TOTA L AND TIBC iron 116 ug/dL 37-145 normal Not Available [facility] [address] [place] [address], [address], 02/08/2022 15:12:04 02/09/20 22 02/08/2022 IRON PANEL -TOTA L AND TIBC total iron binding cap. 419 ug/dL _(kyree c) 250-45 0 normal Not Available [facility] [address] [place] [address], [address], 02/08/2022 15:12:04 02/09/20 22 02/08/2022 IRON PANEL -TOTA L AND TIBC unsat.iron binding cap. 303 ug/dL 112-34 7 normal Not Available [facility] [address] [place] [address], [address], 02/08/2022 15:12:04 02/09/20 22 02/08/2022 IRON PANEL -TOTA L AND TIBC % saturation 28 %_(ca lc) 15-50 normal Not Available [facility] [address] [place] [address], [address], 02/08/2022 15:12:04 11/09/19 23 11/08/2022 COMPL ETE BLOOD COUNT white blood cells 4.3 K/uL 3.8-10 .8 normal Not Available [facility] [address] [place] [address], [address], 11/08/2022 13:06:59 11/09/19 23 11/08/2022 COMPL ETE BLOOD COUNT red blood cells 3.16 M/uL 3.80-5 .20 low Not Available [facility] [address] [place] [address], [address], 11/08/2022 13:06:59 11/09/19 23 11/08/2022 COMPL ETE BLOOD COUNT hemoglobin 9.9 g/dL 12.0-1 6.0 low Not Available [facility] [address] [place] [address], [address], 11/08/2022 13:06:59 11/09/19 23 11/08/2022 COMPL ETE BLOOD COUNT hematocrit 29.0 % 35.0-4 7.0 low Not Available [facility] [address] [place] [address], [address], 11/08/2022 13:06:59 11/09/19 23 11/08/2022 COMPL ETE BLOOD COUNT MCV 92 fL 80-100 normal Not Available [facility] [address] [place] [address], [address], 11/08/2022 13:06:59 11/09/19 23 11/08/2022 COMPL ETE BLOOD COUNT MCH 31 pg 26-35 normal Not Available [facility] [address] [place] [address], [address], 11/08/2022 13:06:59 11/09/19 23 11/08/2022 COMPL ETE BLOOD COUNT MCHC 34 g/dL 32-36 normal Not Available [facility] [address] [place] [address], [address], 11/08/2022 13:06:59 11/09/19 23 11/08/2022 COMPL ETE BLOOD COUNT RDW 14.3 % 11.0-1 5.0 normal Not Available [facility] [address] [place] [address], [address], 11/08/2022 13:06:59 11/09/19 23 11/08/2022 COMPL ETE BLOOD COUNT MPV 7.2 fL 6.2-10 .5 normal Not Available [facility] [address] [place] [address], [address], 11/08/2022 13:06:59 11/09/19 23 11/08/2022 COMPL ETE BLOOD COUNT platelet count 206 K/uL 130-40 0 normal Not Available [facility] [address] [place] [address], [address], 11/08/2022 13:06:59 11/09/19 23 11/08/2022 COMPL ETE BLOOD COUNT neutrophil,a bsolute 3.2 K/uL 1.6-8. 4 normal Not Available [facility] [address] [place] [address], [address], 11/08/2022 13:06:59 11/09/19 23 11/08/2022 COMPL ETE BLOOD COUNT lymphocyte,a bsolute 0.6 K/uL 0.4-5. 1 normal Not Available [facility] [address] [place] [address], [address], 11/08/2022 13:06:59 11/09/19 23 11/08/2022 COMPL ETE BLOOD COUNT monocyte,abs olute 0.4 K/uL 0.0-1. 2 normal Not Available [facility] [address] [place] [address], [address], 11/08/2022 13:06:59 11/09/19 23 11/08/2022 COMPL ETE BLOOD COUNT eosinophil,a bsolute 0.1 K/uL 0.0-0. 8 normal Not Available [facility] [address] [place] [address], [address], 11/08/2022 13:06:59 11/09/19 23 11/08/2022 COMPL ETE BLOOD COUNT basophil,abs olute 0.1 K/uL 0.0-0. 3 normal Not Available [facility] [address] [place] [address], [address], 11/08/2022 13:06:59 11/09/19 23 11/08/2022 COMPL ETE BLOOD COUNT % neutrophils 74.1 % 42.0-7 8.0 normal Not Available [facility] [address] [place] [address], [address], 11/08/2022 13:06:59 11/09/19 23 11/08/2022 COMPL ETE BLOOD COUNT % lymphocytes 14.0 % 11.0-4 7.0 normal Not Available [facility] [address] [place] [address], [address], 11/08/2022 13:06:59 11/09/19 23 11/08/2022 COMPL ETE BLOOD COUNT % monocytes 8.2 % 0.0-11 .0 normal Not Available [facility] [address] [place] [address], [id number], 11/08/2022 13:06:59 11/09/19 23 11/08/2022 COMPL ETE BLOOD COUNT % eosinophils 2.5 % 0.0-7. 0 normal Not Available [facility] [address] [place] [address], [id number], 11/08/2022 13:06:59 11/09/19 23 11/08/2022 COMPL ETE BLOOD COUNT % basophils 1.2 % 0.0-3. 0 normal Not Available [facility] [address] [place] [address], [id number], 11/08/2022 13:06:59 11/09/19 23 11/08/2022 COMPL ETE BLOOD COUNT nucleated red cells 0.0 % 0.0-0. 9 normal Not Available [facility] [address] [place] [address], [phone], 11/08/2022 13:06:59 11/09/19 23 11/08/2022 COMPL ETE BLOOD COUNT nucleated RBCs, absolute 0.00 K/uL not estab. normal Not Available [facility] [address] [place] [address], [id number], 11/08/2022 13:06:59 11/09/19 23 11/08/2022 JUANA TIN ferritin 9 NG/mL 13-157 low Not Available [facility] Laboratory [address] [place] [address], [address], 11/08/2022 13:33:17 11/09/19 23 11/08/2022 IRON PANEL -TOTA L AND TIBC iron 105 ug/dL 37-145 normal Not Available [facility] [address] [place] [address], [address], 11/08/2022 13:33:18 11/09/19 23 11/08/2022 IRON PANEL -TOTA L AND TIBC total iron binding cap. 481 ug/dL _(kyree c) 250-45 0 high Not Available [facility] [address] [place] [address], [address], 11/08/2022 13:33:18 11/09/19 23 11/08/2022 IRON PANEL -TOTA L AND TIBC unsat.iron binding cap. 376 ug/dL 112-34 7 high Not Available [facility] [address] [place] [address], [address], 11/08/2022 13:33:18 11/09/19 23 11/08/2022 IRON PANEL -TOTA L AND TIBC % saturation 22 %_(ca lc) 15-50 normal Not Available [facility] [address] [place] [address], [address], 11/08/2022 13:33:18 11/09/19 23 11/08/2022 COMP. METAB OLIC PANEL glucose 93 mg/dL 74-100 normal Not Available [facility] [address] [place] [address], [address], 11/08/2022 13:33:20 11/09/19 23 11/08/2022 COMP. METAB OLIC PANEL blood urea nitrogen 27 mg/dL 6-20 high Not Available [facility] [address] [place] [address], [address], 11/08/2022 13:33:20 11/09/19 23 11/08/2022 COMP. METAB OLIC PANEL creatinine 1.39 mg/dL 0.50-0 .95 high Not Available [facility] [address] [place] [address], [address], 11/08/2022 13:33:20 11/09/19 23 11/08/2022 COMP. METAB OLIC PANEL BUN/creatini ne ratio 19 (calc ) 10-20 normal Not Available [facility] [address] [place] [address], [address], 11/08/2022 13:33:20 11/09/19 23 11/08/2022 COMP. METAB OLIC PANEL sodium 141 mmol/ L 136-14 5 normal Not Available [facility] [address] [place] [address], [address], 11/08/2022 13:33:20 11/09/19 23 11/08/2022 COMP. METAB OLIC PANEL potassium 4.3 mmol/ L 3.4-5. 0 normal Not Available [facility] [address] [place] [address], [address], 11/08/2022 13:33:20 11/09/19 23 11/08/2022 COMP. METAB OLIC PANEL chloride 105 mmol/ L 98-107 normal Not Available [facility] [address] [place] [address], [address], 11/08/2022 13:33:20 11/09/19 23 11/08/2022 COMP. METAB OLIC PANEL carbon dioxide 24 mmol/ L 22-31 normal Not Available [facility] [address] [place] [address], [address], 11/08/2022 13:33:20 11/09/19 23 11/08/2022 COMP. METAB OLIC PANEL anion gap 12 (calc ) 7-25 normal Not Available [facility] [address] [place] [address], [address], 11/08/2022 13:33:20 11/09/19 23 11/08/2022 COMP. METAB OLIC PANEL calcium 8.4 mg/dL 8.6-10 .2 low Not Available [facility] [address] [place] [address], [address], 11/08/2022 13:33:20 11/09/19 23 11/08/2022 COMP. METAB OLIC PANEL total protein 5.9 g/dL 6.4-8. 3 low Not Available [facility] [address] [place] [address], [address], 11/08/2022 13:33:20 11/09/19 23 11/08/2022 COMP. METAB OLIC PANEL albumin 3.7 g/dL 3.5-5. 2 normal Not Available [facility] [address] [place] [address], [address], 11/08/2022 13:33:20 11/09/19 23 11/08/2022 COMP. METAB OLIC PANEL globulin 2.2 g/dL_ (calc ) 1.5-4. 5 normal Not Available [facility] [address] [place] [address], [address], 11/08/2022 13:33:20 11/09/19 23 11/08/2022 COMP. METAB OLIC PANEL albumin/glob ulin ratio 1.7 (calc ) 1.1-2. 5 normal Not Available [facility] [address] [place] [address], [address], 11/08/2022 13:33:20 11/09/19 23 11/08/2022 COMP. METAB OLIC PANEL bilirubin, total 0.2 mg/dL 0.1-1. 2 normal Not Available [facility] [address] [place] [address], [address], 11/08/2022 13:33:20 11/09/19 23 11/08/2022 COMP. METAB OLIC PANEL alkaline phosphatase 45 U/L 30-121 normal Not Available [facility] [address] [place] [address], [address], 11/08/2022 13:33:20 11/09/19 23 11/08/2022 COMP. METAB OLIC PANEL AST 16 U/L 0-32 normal Not Available [facility] [address] [place] [address], [address], 11/08/2022 13:33:20 11/09/19 23 11/08/2022 COMP. METAB OLIC PANEL ALT 11 U/L 0-33 normal Not Available [facility] [address] [place], [address], 11/08/2022 13:33:20 11/09/19 23 11/08/2022 COMP. METAB [...] QI/gf r_cal culat orPed Not Available [facility] [address] [place] [address], [address], 11/08/2022 13:33:20 10/11/19 24 10/11/2023 COMPL ETE BLOOD COUNT white blood cells 5.2 10*3/ uL 3.8-10 .8 normal Not Available [facility] [address] [place], [address], 10/11/2023 15:55:03 10/11/19 24 10/11/2023 COMPL ETE BLOOD COUNT red blood cells 3.15 10*6/ uL 3.80-5 .20 low Not Available [facility] [address] [place], [address], 10/11/2023 15:55:03 10/11/19 24 10/11/2023 COMPL ETE BLOOD COUNT hemoglobin 9.7 g/dL 12.0-1 6.0 low Not Available [facility] [address] [place] [address], [address], 10/11/2023 15:55:03 10/11/19 24 10/11/2023 COMPL ETE BLOOD COUNT hematocrit 29.0 % 35.0-4 7.0 low Not Available [facility] [address] [place] [address], [address], 10/11/2023 15:55:03 10/11/19 24 10/11/2023 COMPL ETE BLOOD COUNT MCV 92 fL 80-100 normal Not Available [facility] [address] [place] [address], [address], 10/11/2023 15:55:03 10/11/19 24 10/11/2023 COMPL ETE BLOOD COUNT MCH 31 pg 26-35 normal Not Available [facility] [address] [place] [address], [address], 10/11/2023 15:55:03 10/11/19 24 10/11/2023 COMPL ETE BLOOD COUNT MCHC 34 g/dL 32-36 normal Not Available [facility] [address] [place] [address], [address], 10/11/2023 15:55:03 10/11/19 24 10/11/2023 COMPL ETE BLOOD COUNT RDW 13.6 % 11.0-1 5.0 normal Not Available [facility] [address] [place] [address], [address], 10/11/2023 15:55:03 10/11/19 24 10/11/2023 COMPL ETE BLOOD COUNT MPV 7.6 fL 6.2-10 .5 normal Not Available [facility] [address] [place] [address], [address], 10/11/2023 15:55:03 10/11/19 24 10/11/2023 COMPL ETE BLOOD COUNT platelet count 269 10*3/ uL 150-40 0 normal Not Available [facility] [address] [place] [address], [address], 10/11/2023 15:55:03 10/11/19 24 10/11/2023 COMPL ETE BLOOD COUNT neutrophil,a bsolute 3.7 10*3/ uL 1.6-8. 4 normal Not Available [facility] [address] [place] [address], [address], 10/11/2023 15:55:03 10/11/19 24 10/11/2023 COMPL ETE BLOOD COUNT lymphocyte,a bsolute 0.9 10*3/ uL 0.4-5. 1 normal Not Available [facility] [address] [place] [address], [address], 10/11/2023 15:55:03 10/11/19 24 10/11/2023 COMPL ETE BLOOD COUNT monocyte,abs olute 0.4 10*3/ uL 0.0-1. 2 normal Not Available [facility] [address] [place] [address], [address], 10/11/2023 15:55:03 10/11/19 24 10/11/2023 COMPL ETE BLOOD COUNT eosinophil,a bsolute 0.1 10*3/ uL 0.0-0. 8 normal Not Available [facility] [address] [place] [address], [address], 10/11/2023 15:55:03 10/11/19 24 10/11/2023 COMPL ETE BLOOD COUNT basophil,abs olute 0.1 10*3/ uL 0.0-0. 3 normal Not Available [facility] [address] [place] [address], [address], 10/11/2023 15:55:03 10/11/19 24 10/11/2023 COMPL ETE BLOOD COUNT % neutrophils 71.5 % 42.0-7 8.0 normal Not Available [facility] [address] [place] [address], [address], 10/11/2023 15:55:03 10/11/19 24 10/11/2023 COMPL ETE BLOOD COUNT % lymphocytes 17.2 % 11.0-4 7.0 normal Not Available [facility] [address] [place] [address], [address], 10/11/2023 15:55:03 10/11/19 24 10/11/2023 COMPL ETE BLOOD COUNT % monocytes 8.1 % 0.0-11 .0 normal Not Available [facility] [address] [place] [address], [address], 10/11/2023 15:55:03 10/11/19 24 10/11/2023 COMPL ETE BLOOD COUNT % eosinophils 2.1 % 0.0-7. 0 normal Not Available [facility] [address] [place] [address], [address], 10/11/2023 15:55:03 10/11/19 24 10/11/2023 COMPL ETE BLOOD COUNT % basophils 1.1 % 0.0-3. 0 normal Not Available [facility] [address] [place] [address], [address], 10/11/2023 15:55:03 10/11/19 24 10/11/2023 COMPL ETE BLOOD COUNT nucleated red cells 0.1 % 0.0-0. 9 normal Not Available [facility] [address] [place] [address], [address], 10/11/2023 15:55:03 10/11/19 24 10/11/2023 COMPL ETE BLOOD COUNT nucleated RBCs, absolute 0.01 10*3/ uL not estab. normal Not Available [facility] [address] [place] [address], [address], 10/11/2023 15:55:03 10/11/19 24 10/11/2023 COMP. METAB OLIC PANEL glucose 98 mg/dL 74-100 normal Not Available [facility] [address] [place] [address], [address], 10/11/2023 16:24:23 10/11/19 24 10/11/2023 COMP. METAB OLIC PANEL blood urea nitrogen 20 mg/dL 6-20 normal Not Available [facility] [address] [place] [address], [address], 10/11/2023 16:24:23 10/11/19 24 10/11/2023 COMP. METAB OLIC PANEL creatinine 1.51 mg/dL 0.50-0 .95 high Not Available [facility] [address] [place] [address], [address], 10/11/2023 16:24:23 10/11/19 24 10/11/2023 COMP. METAB OLIC PANEL BUN/creatini ne ratio 13 (calc ) 10-20 normal Not Available [facility] [address] [place] [address], [address], 10/11/2023 16:24:23 10/11/19 24 10/11/2023 COMP. METAB OLIC PANEL sodium 142 mmol/ L 136-14 5 normal Not Available [facility] [address] [place] [address], [address], 10/11/2023 16:24:23 10/11/19 24 10/11/2023 COMP. METAB OLIC PANEL potassium 4.2 mmol/ L 3.4-5. 0 normal Not Available [facility] [address] [place] [address], [address], 10/11/2023 16:24:23 10/11/19 24 10/11/2023 COMP. METAB OLIC PANEL chloride 106 mmol/ L 98-107 normal Not Available [facility] [address] [place] [address], [address], 10/11/2023 16:24:23 10/11/19 24 10/11/2023 COMP. METAB OLIC PANEL carbon dioxide 26 mmol/ L 22-31 normal Not Available [facility] [address] [place] [address], [address], 10/11/2023 16:24:23 10/11/19 24 10/11/2023 COMP. METAB OLIC PANEL anion gap 10 (calc ) 7-25 normal Not Available [facility] [address] [place] [address], [address], 10/11/2023 16:24:23 10/11/19 24 10/11/2023 COMP. METAB OLIC PANEL calcium 8.4 mg/dL 8.6-10 .2 low Not Available [facility] [address] [place] [address], [address], 10/11/2023 16:24:23 10/11/19 24 10/11/2023 COMP. METAB OLIC PANEL total protein 6.1 g/dL 6.4-8. 3 low Not Available [facility] [address] [place] [address], [address], 10/11/2023 16:24:23 10/11/19 24 10/11/2023 COMP. METAB OLIC PANEL albumin 3.8 g/dL 3.5-5. 2 normal Not Available [facility] [address] [place] [address], [address], 10/11/2023 16:24:23 10/11/19 24 10/11/2023 COMP. METAB OLIC PANEL globulin 2.3 1.5-4. 5 normal Not Available [facility] [address] [place] [address], [address], 10/11/2023 16:24:23 10/11/19 24 10/11/2023 COMP. METAB OLIC PANEL albumin/glob ulin ratio 1.7 (calc ) 1.1-2. 5 normal Not Available [facility] [address] [place] [address], [address], 10/11/2023 16:24:23 10/11/19 24 10/11/2023 COMP. METAB OLIC PANEL bilirubin, total 0.2 mg/dL 0.1-1. 2 normal Not Available [facility] [address] [place] [address], [address], 10/11/2023 16:24:23 10/11/19 24 10/11/2023 COMP. METAB OLIC PANEL alkaline phosphatase 51 U/L 30-121 normal Not Available [facility] [address] [place], [address], 10/11/2023 16:24:23 10/11/19 24 10/11/2023 COMP. METAB OLIC PANEL AST 18 U/L 0-32 normal Not Available [facility] [address] [place] [address], [address], 10/11/2023 16:24:23 10/11/19 24 10/11/2023 COMP. METAB OLIC PANEL ALT 13 U/L 0-33 normal Not Available [facility] [address] [place], [address], 10/11/2023 16:24:23 10/11/19 24 10/11/2023 COMP. METAB OLIC PANEL GFR 34 >= 60 abnormal NOT E New calcu latio n for GFR (CKD- EPI 2020) is formu lated witho ut race adjus tment facto rs at the recom menda tion of the [employer] and [employer] Nephr ology . This calcu latio n has not been valid ated in pregn ant women . For pedia long rangel nts refer to https ://andrew strong.jann nicole/rivka raines s/JAE QI/gf r_cal culat orPed Not Available [facility] [address] [place] [address], [address], 10/11/2023 16:24:23 10/11/19 24 10/11/2023 IRON PANEL -TOTA L AND TIBC iron 82 ug/dL 37-145 normal Not Available [facility] [address] [place] [address], [address], 10/11/2023 16:24:24 10/11/19 24 10/11/2023 IRON PANEL -TOTA L AND TIBC total iron binding cap. 491 ug/dL _(kyree c) 250-45 0 high Not Available [facility] [address] [place] [address], [address], 10/11/2023 16:24:24 10/11/19 24 10/11/2023 IRON PANEL -TOTA L AND TIBC unsat.iron binding cap. 409 ug/dL 112-34 7 high Not Available [facility] [address] [place] [address], [address], 10/11/2023 16:24:24 10/11/19 24 10/11/2023 IRON PANEL -TOTA L AND TIBC % saturation 17 %_(ca lc) 15-50 normal Not Available [facility] [address] [place] [address], [address], 10/11/2023 16:24:24 10/11/19 24 10/11/2023 JUANA TIN ferritin 10 NG/mL 13-157 low Not Available [facility] [address] [place] [address], [address], 10/11/2023 16:24:26 Result Notes None recorded. Problems Name Problem SNOMED Code Status Onset Date Resolution Date Notes Provider Name and Address Organization Details Recorded Time Anemia 350402807 Active 020 Sue Hatch [facility] 0 15:47:46 Iron deficiency anemia 88536312 [place] 020 [place] [address] [place] [address], [address] , [facility] 0 15:50:13 Crohn's disease 28390874 Active 020 CHANEL KAMARA MD [address] [place], [address], [facility] 0 15:50:14 Problem Notes None recorded. Procedures Surgical History Date Name Laterality Status Provider Name and Address Organization Details Recorded Time 11/20/19 Hem/Onc Treatment Encounter completed Robe Shelton [facility] 11/19/2022 15:42:45 11/13/19 23 Hem/Onc Treatment Encounter completed Jessa Gentry [facility] 11/12/2022 15:42:46 11/23/19 22 Hem/Onc Treatment Encounter completed Laura Sanders [facility] 11/22/2021 14:24:52 11/16/19 22 Hem/Onc Treatment Encounter completed Blanca Nguyen [facility] 11/15/2021 15:11:13 01/04/20 20 Hem/Onc Treatment Encounter completed Jessa Pegueroaacs [facility] 01/04/2020 13:38:36 12/29/19 20 Hem/Onc Treatment Encounter completed Aimee Rosenbaumon [facility] 12/29/2019 12:09:09 08/19/19 20 Hem/Onc Treatment Encounter completed Aimee Cinnamon [facility] 08/19/2019 14:33:51 08/12/19 20 Hem/Onc Treatment Encounter completed Jessa Pegueroaacs [facility] 08/12/2019 15:37:05 08/07/19 20 colonoscopy completed Susan Smith [facility] 12/24/2019 13:49:20 Appendectomy completed Susan Smith [facility] 08/03/2019 14:10:21 Cholecystectomy completed Susan Smith [facility] 08/03/2019 14:10:29 Imaging Results None recorded. Procedure Notes None recorded. Medical Equipment None Reported. Allergies Allergen ID Allergen Name Allergen Category Reaction Reaction Severity Criticality Documentation Date Start Date Code Code System Note Provider Name and Address Organization Details Recorded Time 117781 Celestone medicatio n Not available Not available Not available 08/03/2019 9 RxNorm Susan hamlin [facility] 0 15:04:10 999536 E-Mycin medicatio n Not available Not available Not available 08/03/2019 8 RxNorm Susan Smith [facility] 0 14:09:31 317014 Product containin g penicilli n (product) medicatio n Not available Not available Not available 08/03/2019 96472 8001 SNOMED Susan Smith [facility] 0 14:09:35 323425 streptomy kathy medicatio n Not available Not available Not available 08/03/2019 65745 RxNorm Susan Smith [facility] 0 14:09:58 103470 tetracycl ine medicatio n Not available Not available Not available 08/03/2019 52786 RxNorm Susan Smith [facility] 0 14:10:04 927597 clonidine medicatio n Not available Not available Not available 08/05/2019 2599 RxNorm Waleska Robins [facility] 2 14:49:16 501224 InFed medicatio n Not available Not available Not available 08/12/2019 66044 1 RxNorm Jessa Rinaldi [facility] 0 14:54:33 Medications Name Sig Start Date Stop Date Status Note LastModified by Organization Details LastModified Time Xanax 0.5 mg tablet Take 0.5 tablets as needed by oral route as needed. active Not Available Not Available No t Available vitamin [id number] B1 1,000 mcg-100 mg/mL injection solution Take [...] weight Body temperature Heart rate Oxygen saturation Systolic And Diastolic Provider Name and Address Organization Details Last Updated DateTime 3 160.02 cm 23.5 kg/m2 58404.3 4 g 97.8 [degF] 71 /min 98 % 173/72 mm[Hg] Waleska Robins [facility] 3 14:14:14 Date Recorded Body height Body mass index (BMI) Body weight Heart rate Oxygen saturation Pain severity - 0-10 verbal numeric rating [Score] - Reported Systolic And Diastolic Provider Name and Address Organization Details Last Updated DateTime 3 160.02 cm 23.4 kg/m2 40744.9 1 g 78 /min 97 % 0 177/61 mm[Hg] Jessa Rinaldi [facility] 3 15:22:25 Date Recorded Body height Body mass index (BMI) Body weight Body temperature Heart rate Oxygen saturation Systolic And Diastolic Provider Name and Address Organization Details Last Updated DateTime 3 160.02 cm 23.1 kg/m2 30921.1 6 g 97.5 [degF] 84 /min 100 % 152/78 mm[Hg] Cindy august [facility] 3 14:53:22 Date Recorded Body height Body temperature Heart rate Oxygen saturation Systolic And Diastolic Provider Name and Address Organization Details Last Updated DateTime 2 160.02 cm 97.9 [degF] 81 /min 99 % 175/64 mm[Hg] Laura Tommy [facility] 2 13:55:36 Date Recorded Body height Body mass index (BMI) Body weight Body temperature Oxygen saturation Heart rate Pain severity - 0-10 verbal numeric rating [Score] - Reported Systolic And Diastolic Provider Name and Address Organization Details Last Updated DateTime 2 160.02 cm 22.9 kg/m2 89201.1 7 g 98.2 [degF] 96 % 70 /min 0 149/68 mm[Hg] Waleska Robins [facility] 2 15:12:56 Social History Question Answer Notes LastModified by Organizat ion Details LastModified Time Tobacco Smoking Status Former Smoker Susanazael Smith [facility] 08/05/2019 15:07:33 How Much Tobacco Do You Chew? None [email or web address] Information not available 08/05/2019 Live Alone Or With Others? With Others [email or web address] Information not available 08/05/2019 Education Level High School Informat ion not available 08/05/2019 Learning Preferences Computer/Int ernet [email or web address] Information not available 11/09/2021 Exposure To Smoke No [email or web address] Informa tion not available 08/05/2019 Marital Status [email or web address] Informatio n not available 08/05/2019 What Was The Date Of Your Most Recent Tobacco Screening? 11/08/2022 [email or web address] Information not available 11/08/2022 How Many Children Do You Have? 0 [email or web address] Information not available 08/05/2019 What Is Your Relationship Status? [email or web address] Information not available 02/08/2022 How Much Tobacco Do You Smoke? No [email or web address] Information not available 08/05/2019 Has Tobacco Cessation Counseling Been Provided? No [email or web address] Information not available 02/08/2022 How Many Years Have You Smoked Tobacco? 10 [email or web address] Information not available 08/05/2019 Have You Recently Traveled Abroad? No [email or web address] Information not available 02/08/2022 Sex: Unknown Functional Status Question Answer Note LastModified by Organizat ion Details LastModified Time Do you use any illicit or recreational drugs? No [email or web address] Information not available 02/08/2022 What is your level of alcohol consumption? None [email or web address] Information not available 08/05/2019 Do you or have you ever used smokeless tobacco? Never used smokeless tobacco [email or web address] Information not available 08/05/2019 What is your occupation? retired [email or web address] Information not available 08/05/2019 Do you or have you ever used e-cigarettes or vape? Never used electronic cigarettes [email or web address] Information not available 08/05/2019 Mental Status None recorded. Family History Relationship Description Onset Age of this Age Resolved Age Notes LastModified by Organization Details LastModified Time Mother Tuberculosis [email or web address] Not avai lable 08/05/2019 15:05:42 Mother Family history of malignant neoplasm [email or web address] Not available 2019 15:05:58 Mother Family history of stroke [email or web address] Not available 2019 15:06:07 Father Hypertensive disorder [email or web address] Not available 2019 15:06:14 Sister CREST syndrome [email or web address] Not available 2019 15:06:58 Sister Raynaud's disease [email or web address] Not available 2019 15:07:12 Sister Family history of malignant neoplasm [email or web address] Not available 2019 15:07:19 Notes:lupus-sister, Medical History Condition Response Anxiety Disorder Y Other Anemia Y Chronic Obstructive Pulmonary Disease Y High Cholesterol Y Hypertension Y Cataract Y Asthma Y Glasses/Contacts Y Gynecological HistoryNo gynecological history recorded. Obstetrics History GPAL:G 0 P 0 0 0 0 Immunizations Vaccine Type Date Status Note Provider Nam e and Address Organization Details Recorded Time Influenza, split virus, quadrivalent, preservative 9 completed Susan Smith [facility] 08/05/2019 15:05:06 Influenza, high-dose, quadrivalent, PF 0 completed Pia Gooden [facility] 09/30/2020 15:02:22 COVID-19, mRNA, LNP-S, PF, 100 mcg/0.5mL dose or 50 mcg/0.25mL dose 1 completed Pia Gooden [facility] 09/30/2020 15:02:56 COVID-19, mRNA, LNP-S, PF, 100 mcg/0.5mL dose or 50 mcg/0.25mL dose 1 completed Pia Gooden [facility] 09/30/2020 15:03:03 pneumococcal, unspecified formulation 9 completed Pia Gooden [facility] 09/30/2020 15:05:42 COVID-19, mRNA, LNP-S, PF, 100 mcg/0.5mL dose or 50 mcg/0.25mL dose 1 completed Waleska Robins [facility] 11/09/2021 14:53:18 Influenza, split virus, quadrivalent, preservative 1 completed Waleska Robins [facility] 11/09/2021 14:53:57 COVID-19, mRNA, LNP-S, PF, 100 mcg/0.5mL dose or 50 mcg/0.25mL dose 2 completed Waleska Robins [facility] 02/08/2022 15:02:05 Past Encounters Encounter ID Performer Location Encounter Start Date Encounter Closed Date Diagnosis/Indication Diagnosis SNOMED-CT Code Diagnosis ICD10 Code Diagnosis IMO Codes Diagnosis Note [id number] [place] [address] [address] 06/27/2016 14:50:27 06/29/2016 09:08:29 [id number] NILTON ANTUNEZ MD [facility] [place] [address] [place] [address] 09/10/2016 14:03:36 09/14/2016 10:41:16 [id number] CODEY YATES MD [place] [address] [place] [address] 06/21/2017 14:46:22 06/21/2017 15:54:07 [id number] STEWART DWYER MD OPHTHALMO [facility] [place] [address] [address] 07/01/2017 15:02:48 07/03/2017 08:42:06 [id number] ALIE VASQUEZ [place] [address] [address] 07/11/2017 13:41:14 07/12/2017 08:31:16 [id number] STEWART DWYER MD OPHTHALMO LOGY [address] [place] [address] 12/12/2017 09:13:21 12/12/2017 12:18:38 [id number] STEWART DWYER MD OPHTHALMO LOGY [address] [place], [place] [address] 5 03/19/2018 09:35:46 03/19/2018 13:36:51 [id number] STEWART DWYER MD OPHTHALMO LOGY [address] ,[address] [place] [address] 5 03/28/2018 15:34:23 03/31/2018 13:21:09 [id number] ALIE VASQUEZ MD GASTRO SB 1225 [place] [address] 1 07/16/2018 14:41:23 07/17/2018 07:42:34 [id number] [place] [address] [place] [address] 1 11/24/2018 14:20:00 11/25/2018 07:50:06 [id number] [place] [address] [place] [address] 1 12/23/2018 12:48:30 12/23/2018 13:37:25 [id number] STEWART DWYER [place] [facility] [place] [address] [place] [address] 5 02/26/2019 13:43:02 02/26/2019 16:32:05 [id number] [place] [address] [place] [address] 1 07/29/2019 14:32:33 07/29/2019 15:38:03 [id number] CHANEL KAMARA MD HEM/ONC SB CLOSED [address] [place] [address] 08/05/2019 14:39:21 08/05/2019 16:14:44 Crohn's disease 76058732 K50.90 Iron defic iency anemia 21745164 D50.9 [id number] CHANEL KAMARA MD HEM/ONC SB CLOSED [address] [place] [address] 08/12/2019 13:40:28 08/21/2019 03:47:31 [id number] CHANEL KAMARA MD HEM/ONC SB CLOSED [address] [place] [address] 08/19/2019 13:28:28 08/27/2019 03:47:40 [id number] ALIE VASQUEZ MD SURGERY SCHEDULE [address] [place] [address] 1 09/10/2019 10:13:28 09/10/2019 10:14:47 [id number] ALIE VASQUEZ MD GASTRO SB 1225 [facility], [place] [address] 1 12/10/2019 13:31:22 12/11/2019 07:20:46 [id number] CHANEL KAMARA MD HEM/ONC SB CLOSED [address] [place] [address] 12/24/2019 13:15:18 12/24/2019 14:07:18 Anemia 629063373 D64.9 Iron defic iency anemia 62068631 D50.9 [id number] JESSE SIEGEL MD HEM/ONC SB CLOSED [address] [place] [address] 12/29/2019 11:23:09 12/29/2019 13:23:02 [id number] JESSE SIEGEL MD HEM/ONC SB CLOSED [address] [place] [address] 01/04/2020 11:58:23 01/04/2020 13:39:07 [id number] CHANEL KAMARA MD HEM/ONC SB CLOSED [address] [place] [address] 03/25/2020 12:45:35 03/25/2020 13:16:16 Iron deficiency anemia 74639808 D50.9 [id number] CODEY YATES MD BONE DENSITY [address] [place] [address] 05/13/2020 12:33:23 05/13/2020 13:15:32 [id number] STEWART DWYER MD OPHTHALMO LOGY EAST [address] [facility] [address] [place] [address] 08/08/2020 14:34:14 08/08/2020 17:35:05 [id number] CHANEL KAMARA MD HEM/ONC SB CLOSED [address] [place] [address] 09/30/2020 14:59:08 10/12/2020 10:25:34 Crohn's disease 51528392 K50.90 Iron defic iency anemia 02544077 D50.9 [id number] ALIE VASQUEZ MD GASTRO SB [address] [facility], [address] [place] [address] 01/10/2021 15:10:41 01/12/2021 08:42:03 [id number] STEWART DWYER MD OPHTHALMO LOGY [address] [address] [facility] ,[address] [place] [address] 02/06/2021 14:32:30 02/06/2021 15:46:24 [id number] NILTON ANTUNEZ MD DERMATOLO GY [address] [place] [address] 08/22/2021 15:09:03 08/22/2021 16:07:39 [id number] CHANEL KAMARA MD HEM/ONC SB CLOSED [address] [place] [address] 11/09/2021 14:35:43 11/09/2021 15:16:16 Anemia 533474497 D64.9 Iron defic iency anemia 05723216 D50.9 [id number] CHANEL KAMARA MD HEM/ONC SB CLOSED [address] [place] [address] 11/15/2021 12:51:39 11/15/2021 15:12:00 [id number] CHANEL KAMARA MD HEM/ONC SB CLOSED [address] [place] [address] 11/22/2021 12:50:30 11/22/2021 15:05:56 [id number] ALIE VASQUEZ MD GASTRO SB [address]25 [facility], [address] [place] [address] 1 01/03/2022 14:36:08 01/04/2022 07:41:04 [id number] ALIE VASQUEZ MD SURGERY SCHEDULE [address] [place] [address] 1 01/16/2022 13:48:55 01/16/2022 13:52:34 [id number] CHANEL KAMARA MD HEM/ONC SB CLOSED [address] [place] [address] 1 02/08/2022 14:52:07 02/08/2022 15:27:49 Iron deficiency anemia 61081289 D50.9 [id number] STEWART DWYER MD OPHTHALMO [address] [place] [address] 5 05/03/2022 14:44:26 05/03/2022 16:39:58 [id number] ALIE VASQUEZ MD GASTRO SB [address]25 [place] [address] 1 07/19/2022 14:16:26 07/20/2022 10:07:06 [id number] CHANEL KAMARA MD HEM/ONC SB CLOSED [address] [place] [address] 1 11/08/2022 14:01:47 11/08/2022 15:17:03 Anemia 727663886 D64.9 Iron defic iency anemia 47791575 D50.9 [id number] ELEAZAR BABB MD HEM/ONC SB CLOSED [address] [place] [address] 1 11/12/2022 13:45:32 11/12/2022 16:18:08 [id number] CHANEL KAMARA MD HEM/ONC SB CLOSED [address] [place] [address] 1 11/19/2022 13:45:57 11/19/2022 15:43:36 [id number] STEWART DWYER MD OPHTHALMO [address] ,[address] [place] [address] 5 05/09/2023 13:45:48 05/09/2023 15:17:18 [id number] STEWART DWYER MD OPHTHALMO LOGJenise [address] [place] [place] [address] 5 06/21/2023 12:48:27 06/21/2023 13:21:45 [id number] ALIE VASQUEZ MD GASTRO SB [address] [place] [address] 1 07/18/2023 14:14:16 07/18/2023 15:07:16 [id number] STEWART DWYER MD OPHTHALMO LOGJenise [address] [place] [place] [address] 5 09/05/2023 13:15:33 09/05/2023 14:42:54 [id number] STEWART DWYER MD OPHTHALMO LOGJenise [address] ,[address] [place] [address] 5 11/08/2023 14:12:55 11/08/2023 15:46:28 [id number] STEWART DWYER MD OPHTHALMO MAHGOANY [address] [place] [address] 5 05/18/2024 13:27:58 05/18/2024 14:17:25 [id number] [place] [address] [place] [address] 1 09/09/2024 12:57:54 09/10/2024 08:34:59 [id number] ALIE VASQUEZ MD GASTRO SB [address] [place] [address] 1 03/24/2025 08:40:31 03/25/2025 11:43:26 [id number] [place] [address] [place] [address] 1 04/07/2025 11:05:48 04/08/2025 08:34:36 [id number] STEWART DWYER MD [facility] [place] [address] [place],[address] [place] [address] 5 05/31/2025 10:35:05 05/31/2025 11:58:23 Health Concerns Section Related Observation LastModified by Organization Detai ls LastModified Time None Recorded Concern Status LastModified by Organization Details LastModified Time None Recorded Advance Directives Directive None Recorded Payers Insurance Date Sequence Insurance Name Policy Number Policy Gupta Covered Member ID Gupta Member ID Guarantor Name 05/28/2025 1 [place] Alejandra Ramos [id number] Alejandra Ramos 06/04/2025 2 [employer] (MEDICARE SUPPLEMENT) Alejandra Ramos [id number] Alejandra Ramos 10/14/2019 2 UNSPECIFIED REMIT PAYOR Alejandra Ramos 09/09/2024 2 [employer] (MEDICARE SUPPLEMENT) Alejandra Ramos [id number] Alejandra Ramos Notes Date Note Type Note Provider Name and Address Organization Details Recorded Time 02/08/2022 text/html [facility] HPIReported b y PatientVisit DetailsFor patient accompanied by, patient reportspatient accompanied by __. For advanced directives / biobank authorizations, patient reportsadvanced directives? yes. For discharge, patient reportsdischarge disposition stableanddischarge mode ambulatory.Distress ScreeningFor physical problems, patient reportsdiarrhea (crohns). For distress screening, patient reportshas the distress screening been completed in the last 45 days? noanddistress level 0 no stress. For family problems, patient reportsno family problems. For spiritual/cheondoism, patient reportsspiritual/religi ous problems? no. For emotional problems, (anxiety).NutritionFor nutrition screening, patient reportsnutrition screening no,special diet restrictions? describe: (crohns disease), andnutrition counseling last 6 months? no. This is a very pleasant 81-year-old female, [...] is close to 100. CHANEL KAMARA MD [facility] [place], [address], [facility] 02/09/2022 08:33:02 11/08/2022 text/html HPIReported b y PatientVisit DetailsFor patient accompanied by, patient reportspatient accompanied by __. For advanced directives / biobank authorizations, patient reportsadvanced directives? yes. For discharge, patient reportsdischarge disposition stableanddischarge mode ambulatory.Distress ScreeningFor emotional problems, patient reportsworry(anxiety). For physical problems, patient reportsdiarrhea (crohns)andsleep issues(pain). For distress screening, patient reportshas the distress screening been completed in the last 45 days? noanddistress level 0 no stress. For family problems, patient reportsno family problems. For spiritual/cheondoism, patient reportsspiritual/religi ous problems? no.NutritionFor nutrition screening, patient reportsnutrition screening no,special diet restrictions? describe: (crohns disease), andnutrition counseling last 6 months? no. Ms. Ramos is a 82-year-old female who [...] the creatinine of 1.39. CHANEL KAMARA MD [address] [place], [address], [facility] 11/09/2022 12:48:49 OBGyn Episode No OBEpisode recorded.
--- OUTSIDE RECORDS SUMMARY | 2025-07-02 17:04 | XMS_ITS | Patient Health Record ---
[facility] Address [address] [facility] [address] [place] [id number] Care Team Providers Care Behavioral Health Specialist Name Role Phone Unique Pendleton Primary Care Provider Daniel Keys Unavailable [phone] Mar Paz Unavailable [phone] Allergies Allergen (clinical drug ingredient) Drug/Non Drug [...] 39 Performing Lab: Notes/Report: Test performed by [facility] [address] [place] [address] , [address], [place] [address] Yandel Hernandez MD, PhD, [facility], Professor Of Business Administration CLIA: [id number] Sodium 139 135-145 mmol/L Potassium 4.0 3.5-5.3 mmol/L Chloride 103 97-108 mmol/L CO2 25 20-32 mmol/L Glucose 97 65-99 mg/dL BUN 27 8-23 mg/dL Creatinine 1.32 0.50-1.00 mg/dL Calcium 8.3 8.6-10.4 mg/dL eGFR by Creatinine 39 >59 mL/min/1.73m2 P-Magnesium Reviewed date:07/02/2025 09:01:37 AM Interpretation: Performing Lab: Notes/Report: Test performed by [facility] [address] [place] [address] , [address], [place] [address] Yandel Hernandez MD, PhD, [facility], Professor Of Business Administration CLIA: [id number] Magnesium 1.0 1.6-2.4 mg/dL H-DIARRHEA PANEL Reviewed date:03/16/2025 09:03:22 AM Interpretation:normal Performing Lab: Notes/Report: CAMPYLOBACTER Not Detected NotDetected CLOSTR DIFFICIL Not Detected NotDetected PLESIOMONAS Not Detected NotDetected SALMONELLA, PCR Not Detected NotDetected YERSINIA Not Detected NotDetected VIBRIO, PCR Not Detected NotDetected VIBRIO CHOLERAE Not Detected NotDetected ECOLI (EAEC) Not Detected NotDetected ECOLI (EPEC) Not Detected NotDetected ECOLI (ETEC) Not Detected NotDetected SHIGATOXIN Not Detected NotDetected ECOLI O157 Not Detected NotDetected SHIG-INVAS ECOL Not Detected NotDetected CRYPTO Not Detected NotDetected CYCLOSPORA Not Detected NotDetected EHISTOLYTICA Not Detected NotDetected GIARDIA Not Detected NotDetected ADENO STOOL Not Detected NotDetected ASTROVIRUS Not Detected NotDetected NOROVIRUS Not Detected NotDetected ROTOVIRUS A Not Detected NotDetected SAPOVIRUS Not Detected NotDetected X ray : Ankle, left Reviewed date:01/21/2025 08:24:07 AM Interpretation:soft tissue swelling Performing Lab: Notes/Report: soft tissue swelling CBC Venipuncture (in house) Reviewed date:01/03/2025 10:10:06 [...] Interpretation:464 Performing Lab: Notes/Report: Test performed by [facility] [address] [place] [address] , [address], [place] [address] Sawyer Hyman MD, Professor Of Business Administration CLIA: [id number] Vitamin B12 168 064-7567 pg/mL P-Comprehensive Metabolic Pa lyndsey (CMP) Reviewed date:01/03/2025 10:10:06 PM Interpretation:GFR 39 Performing Lab: Notes/Report: Test performed by [facility] [address] [place] [address] , [address], [place] [address] Sawyer Hyman MD, Professor Of Business Administration CLIA: [id number] Sodium 143 135-145 mmol/L Potassium 4.0 3.5-5.3 [...] Interpretation:1.4 Performing Lab: Notes/Report: Test performed by [facility] [address] [place] [address] , [address], [place] [address] Sawyer Hyman MD, Professor Of Business Administration CLIA: [id number] Magnesium 1.4 1.6-2.4 mg/dL P-TSH Reviewed date:01/03/2025 10:10:06 PM Interpretation:3.24 Performing Lab: Notes/Report: Test performed by [facility] [address] [place] [address] , [address], [place] [address] Sawyer Hyman MD, Professor Of Business Administration CLIA: [id number] TSH 3.24 0.43-5.25 mU/L Reason For Referral Reason patient needs PT/OT Diagnosis 1 Compression fracture of L2 vertebra, initial encounter (S32.020A) [facility] Referring Provider First Name Unique Villareal Referring Provider Last Name Helder Referring Provider Speciality [facility] Referred Provider Specialty Home Health Agency General Notes Tamar Galeano 2024 01:28:40 PM > sent to [employer] Referral Priority Routine Medications Medication SIG (Take, Route, Frequency, Duration) Notes Start Date End Date Status Benazepril HCl 20 MG 1 tab(s) orally onc e a day Active Flonase Allergy Relief 50 MCG/ACT 2 spray in each nostril Nasally Once a day; Duration: 30 day(s) 04/27/2024 Active amLODIPine Besylate 10 MG 1 tab(s) orall y once a day; Duration: 90 days Active tiZANidine HCl 2 MG 1 tablet at bedtime as needed Orally Once a day; Duration: 30 day(s) Not-Taking Diphenoxylate-Atropine 2.5-0.025 MG 1 tablet as needed Orally Four times a day 03/17/2025 Not-Taking Diclofenac Not-Takin g traMADol HCl 50 MG 1 or 2 tabs Orally 3 times a day prn 03/09/2025 Not-Taking Furosemide 20 MG 1 tablet Orally Once a day; Duration: 30 days 07/01/2025 Active azaTHIOprine 50 MG 1 tab(s) orally once a day; Duration: 30 day(s) 09/14/2020 Active Tricor 48 MG 1 tab(s) orally once a day; Duration: 90 days Active Vitamin D 50 MCG (1999) 1 tablet Oral ly Once a day; Duration: 30 day(s) Not-Taking hydroCHLOROthiazide 12.5 MG 1 tablet in the morning Orally Once a day; Duration: 90 days 06/23/2024 Not-Taking ALPRAZolam 0.5 MG 1 tab(s) orally once daily prn 07/01/2025 Active Cyclobenzaprine HCl 5 MG 1 tablet Orally 3 times a day 02/25/2025 Not-Taking Potassium Chloride ER 10 MEQ 1 cap(s) or ally 2 times a day; Duration: 90 days Active Magnesium Glycinate 100 MG 1 cap Orally daily 06/14 Active Mometasone Furoate 0.1 % 1 application Externally Once a day 01/19/2025 Active Immunizations Vaccine Route Administration Date Status [...] Administered Sandy Hawkins administered per [facility], failed to document in ecw xFlu shot-36 [...] Status W/U Status Risk Notes Problem Sinusitis (38158639) Sinusitis (J32.9) Active c onfirmed Problem Chronic renal insufficiency (743437724) Chronic renal insufficiency (N18.9) Active confirmed Problem Hypertriglyceridemia (839966350) Hypertriglyceridemia (E78.1) Active confirmed Problem Anxiety (79115316) Anxiety (F41.9) Active confi rmed Problem Hypertension (83552310) Hypertension (I10) Active confirmed Problem Osteopenia (370537888) Osteopenia (M85.80) Active confirmed Problem Sciatic nerve lesion (864995569) Piriformis syndrome of left side (G57.02) Active confirmed Problem Osteoarthritis (717560750) Osteoarthritis (M19.90) Active confirmed Problem Paresthesia (51584719) Paresthesia (R20.2) Active confirmed Problem Iron deficiency anemia (34370505) Iron deficiency anemia (D50.9) Active confirmed Problem Vitamin B12 deficiency (non anemic) (32770322) Vitamin B 12 deficiency (E53.8) Active confirmed Problem Sciatica (08097022) Sciatica of left side (M54.32) Active confirmed Problem Hypomagnesemia (503837115) Hypomagnesemia (E83.42) Active confirmed Problem Chronic maxillary sinusitis (88217434) Chronic maxillary sinusitis (J32.0) Active confirmed Problem Crohn's disease of large bowel (3235280) Crohn's disease of large intestine without complications (K50.10) Active confirmed Problem Pulmonary fibrosis (49777892) Pulmonary fibrosis (J84.10) Active confirmed Problem Crohn disease (14200530) Crohn disease (K50.90) Active confirmed Problem History of tuberculosis (865371791) 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) Active confirmed Problem Transient cerebral ischemia (847663473) Transient cerebral ischemia, unspecified type (G45.9) Active confirmed Problem Localized, primary osteoarthritis of the pelvic region and thigh (994834877) 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) Active confirmed Problem Arthritis of right knee (6626011986644531) Arthritis of knee, 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) Active confirmed Problem Sciatica (67491283) Left sciatic nerve pain (M54.32) Active confirmed Problem Chronic anemia (598574069) Chronic anemia (D64.9) Active confirmed Problem Localized, primary osteoarthritis of the wrist (302649078) 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 Vital Signs Heart Rate 88 /min 07/01/2025 Blood pressure diastolic 70 mm Hg 07/01/2025 Height 64 in 07/01/2025 Blood pressure systolic 130 mm Hg 07/01/2025 Weight 120 lbs 07/01/2025 BMI 20.6 kg/m2 07/01/2025 Encounters Encounter Location Date Provider Diagnosis [facility] [address] [place], [place] [id number] 07/16/2024 R Mono Helder Arthritis of knee, r ight M19.90 ; Bakers cyst of knee, right M71.21 and Vitamin B 12 deficiency E53.8 [facility] [address] [place], [place] [id number] 08/10/2024 R Mono Helder Vitamin B 12 deficie ncy E53.8 [facility] [address] [place], [place] [id number] 08/24/2024 R Mono Helder Vitamin B 12 deficie ncy E53.8 [facility] [address] [place], [place] [id number] 10/09/2024 R Mono Helder Vitamin B 12 deficie ncy E53.8 and Hypertension I10 [facility] [address] [place], [place] [id number] 10/28/2024 R Mono Helder Vitamin B 12 deficie ncy E53.8 [facility] [address] [place], [place] [id number] 11/12/2024 R Mono Helder Vitamin B 12 deficie ncy E53.8 [facility] [address] [place] [id number] 12/17/2024 R Mono Helder Vitamin B 12 deficie ncy E53.8 [facility] [address] [place], [place] [id number] 12/24/2024 Mar Paz Acute left ankle talita n M25.572 ; BMI 21.0-21.9, adult Z68.21 ; Pulmonary fibrosis J84.10 ; Crohn disease K50.90 ; Chronic anemia D64.9 and Crohn's disease of large intestine without complications K50.10 [facility] [address] [place] [id number] 12/29/2024 R Mono Helder Adult general medica l examination Z00.00 ; Paresthesia R20.2 ; Iron deficiency anemia D50.9 ; Leg edema R60.0 ; Pulmonary fibrosis J84.10 ; Anxiety F41.9 ; Crohn disease K50.90 ; BMI 20.0-20.9, adult Z68.20 ; Osteopenia M85.80 ; History of TB (tuberculosis) Z86.11 ; Hypertension I10 and Hypertriglyceridemia E78.1 [facility] [address] [place] [id number] 01/11/2025 Daniel Accident Vitamin B 12 deficie ncy E53.8 [facility] [address] [place] [id number] 01/19/2025 R Mono Helder Acute left ankle talita n M25.572 ; Eczema L30.9 and BMI 21.0-21.9, adult Z68.21 [facility] [address] [facility] [address] [place], [place] [id number] 05/03/2025 R Mono Helder B12 deficiency E53.8 [facility] [address] [place], [place] [id number] 05/19/2025 R Mono Helder B12 deficiency E53.8 [facility] [address] [facility] [address] [place] [id number] 06/24/2025 R Mono Helder Vitamin B 12 deficie ncy E53.8 [facility] [address] [place], [place] [id number] 07/01/2025 R Mono Helder Hypokalemia E87.6 ; Hypomagnesemia E83.42 ; Crohn disease K50.90 ; Osteopenia M85.80 ; Pulmonary fibrosis J84.10 ; Anxiety F41.9 and Leg edema R60.0 [facility] [address] [place], [place] [id number] 10/12/2024 R Mono Helder [facility] [address] [place] [id number] 12/17/2024 R Mono Helder [facility] [address] [place] [id number] 01/03/2025 R Mono Helder [facility] [address] [place], [place] [id number] 01/04/2025 R Mono Helder Anxiety F41.9 [facility] [address] [place], [place] [id number] 01/11/2025 R Mono Helder Hypertension I10 [facility] [address] [place], [place] [id number] 01/21/2025 R Mono Helder [facility] [address] [place], [place] [id number] 02/04/2025 R Mono Helder Hypertension I10 [facility] [address] [place] [id number] 02/25/2025 R Mono Helder [facility] [address] [place] [id number] 03/08/2025 R Mono Helder [facility] [address] [place] [id number] 03/11/2025 R Mono Helder [facility] [address] [place] [id number] 03/17/2025 R Mono Helder [facility] [address] [place] [id number] 04/06/2025 R Mono Pendleton Leg edema R60.0 [facility] [address] [place] [id number] 05/19/2025 R Mono Pendleton [facility] [address] [facility] [address] [place] [id number] 07/01/2025 R Mono [facility] [address] [facility] [address] [place] [id number] 07/02/2025 R Mono Pendleton Assessments Encounter Date Diagnosis [...] - Z68.21) 12/29/2024 Paresthesia (ICD-10 - R20.2) 02/04/2025 Hypertension (ICD-10 - I10) 04/06/2025 Leg edema (ICD-10 - R60.0) 05/03/2025 B12 deficiency (ICD- 10 - E53.8) 05/19/2025 B12 deficiency (ICD- 10 - E53.8) 06/24/2025 Vitamin B 12 deficie ncy (ICD-10 - E53.8) 01/04/2025 Anxiety (ICD-10 - F41.9) 01/11/2025 Hypertension [...] assessment, Depression screening and Bladder control screening. 07/01/2025 Hypokalemia (ICD-10 - E87.6) 07/01/2025 Hypomagnesemia (ICD- 10 - E83.42) 10/28/2024 Vitamin B 12 deficie ncy (ICD-10 - E53.8) 07/01/2025 Crohn disease (ICD-1 0 - K50.90) 01/19/2025 BMI 21.0-21.9, adult (ICD-10 - Z68.21) 12/29/2024 Iron deficiency anem ia (ICD-10 - D50.9) 12/24/2024 Pulmonary fibrosis (ICD-10 - J84.10) 10/09/2024 Hypertension (ICD-10 - I10) 07/16/2024 Vitamin B 12 deficie ncy (ICD-10 - E53.8) 12/24/2024 Crohn disease (ICD-1 0 - K50.90) 12/29/2024 Leg edema (ICD-10 - R60.0) 07/01/2025 Osteopenia (ICD-10 - M85.80) 07/01/2025 Pulmonary fibrosis (ICD-10 - J84.10) 12/29/2024 Pulmonary fibrosis (ICD-10 - J84.10) 12/24/2024 Chronic anemia (ICD- 10 - D64.9) 12/24/2024 Crohn's disease of large intestine without complications (ICD-10 - K50.10) 12/29/2024 Anxiety (ICD-10 - F41.9) 07/01/2025 Anxiety (ICD-10 - F41.9) 07/01/2025 Leg edema (ICD-10 - R60.0) 12/29/2024 Crohn disease (ICD-1 0 - K50.90) 12/29/2024 BMI 20.0-20.9, adult (ICD-10 - Z68.20) 12/29/2024 Osteopenia (ICD-10 - M85.80) 12/29/2024 History of TB (tuberculosis) (ICD-10 - Z86.11) 12/29/2024 Hypertension (ICD-10 - I10) 12/29/2024 Hypertriglyceridemia (ICD-10 - E78.1) Plan Of Treatment Pending Test Test Name Order Date Bone density 12/29/2024 Next Appt Details Provider Name:Unique Arias, 09/30/2025 02:00:00 PM, [address], [address], [place], [place], [id number], Insurance Providers Payer Name Payer Address Payer Phone Subscriber Number Group Number Insured Name Patient Relationship to Insured Coverage Start Date Coverage End Date MEDICARE PART B [address] [address] [place] [address] [id number] Alejandra Ramos Self - patient is the insured [employer] [address] [place] [id number] Alejandra Ramos Self - patient is the insured Medications [...] 12/17/2024 1 mL B-12 01/11/2025 1 mL B-12 05/03/2025 1 mL B-12 05/19/2025 1 mL B-12 06/24/2025 1 mL Depo- Medrol 40 mg/ml 08/16/2022 [...] Failure Bakers cyst, right knee by US L2 compression fx - 02/2025 Surgical History Surgery Date(Month/Year) Small Bowel Resection Cholecystectomy C-scope 2016 C-scope and EGD 2019 Hospitalization History Reason Date(Month/Year) Hypertension- [facility] ER 12/28/2017
--- OUTSIDE RECORDS SUMMARY | 2025-07-02 17:04 | XMS_ITS | Clinical Summary ---
Author Organization [facility] Address [address] [place] [address] Care Team Providers Care Java Web Application Developer Name Role Phone Provider, No Known Primary [...] (2 of 2 - PCV) 05/31/2019 05/31/2018 INFLUENZA VACCINE 02/12/2025 06/01/2019, , 04/19/2017 COVID-19 Vaccine ( season) 2025 Insurance MEDICARE A & B Member Subscriber Plan / Payer (Ef fective 2003-Present) Name:Alejandra Ramos Member ID:[id number] Relation to Subscriber:Self Name:Alejandra Ramos Subscriber ID:[id number] Payer ID:[id number] Group ID:Not on file Type:Not on file Address: [address] [employer] OPTIONS Care Teams Java Web Application Developer Relationship Specialty Start Date End Date Provider, No Known [facility] [place] [address] PCP - General 09/21/19
--- OUTSIDE RECORDS SUMMARY | 2025-07-02 17:05 | XMS_ITS | Encounter Summary ---
Author Organization [facility] Address [address] [place] [address] Care Team Providers Care Public Speaking Teacher Name Role Phone Sal Mar MD Unavailable [phone] Edson Pendleton MD Primary Care Provider [phone] Encounter Details Date Type Department Care Team (Late st Contact Info) Description 05/31/2025 Orders Only [facility] [address] [place] [phone] Fidel Vasquez MD [address] [place] [address] Social History Tobacco Use Types Packs/Day Years Used Date Smoking Tobacco: Former Cigarettes 0 Q uit: 1975 Smokeless Tobacco: Never Comments [...] Diagnosis Comments COMPREHENSIVE METABOLIC PANEL, PLASMA Routine 05/31/2025 12:19 PM EST documented in this encounter Results * (ABNORMAL) Comprehensive Metabolic Panel, Plasma (05/31/2025 12:19 PM EST) External Glucose 89 74 - 100 mg/dL 05/31/2025 5:24 PM [facility] External BUN 22(H) 6 - 20 mg/dL 05/31/2025 5:24 PM [facility] External Creatinine Blood 1.16(H) 0.50 - 0.95 mg/dL 05/31/2025 5:24 PM [facility] External BUN/Creat Ratio 19 10 - 20 (calc) 05/31/2025 5:24 PM [facility] External Sodium 141 136 - 145 mmol/L 05/31/2025 5:24 PM [facility] External Potassium 3.9 3.4 - 5.0 mmol/L 05/31/2025 5:24 PM [facility] External Chloride 103 98 - 107 mmol/L 05/31/2025 5:24 PM [facility] External Carbon Dioxide (CO2) 25 22 - 31 mmol/L 05/31/2025 5:24 PM [facility] External Anion Gap (AG) 13 7 - 25 (calc) 05/31/2025 5:24 PM [facility] External Calcium 8.8 8.6 - 10.2 mg/dL 05/31/2025 5:24 PM [facility] External Total Protein 6.7 6.4 - 8.3 g/dL 05/31/2025 5:24 PM [facility] External Albumin 4.1 3.5 - 5.2 g/dL 05/31/2025 5:24 PM [facility] External Globulin 2.6 1.5 - 4.5 025 5:24 PM [facility] External Albumin/Globulin Ratio 1.6 1.1 - 2.5 (calc) 05/31/2025 5:24 PM [facility] External Bilirubin Total 0.3 0.1 - 1.0 mg/dL 05/31/2025 5:24 PM [facility] Comment:NOTE: New reference range. External Alkaline Phosphatase 57 30 - 121 U/L 05/31/2025 5:24 PM [facility] External AST (SGOT) 19 0 - 32 U/L 05/31/2025 5:24 PM EST [facility] External ALT (SGPT) 10 0 - 33 U/L 05/31/2025 5:24 PM EST [facility] External Estimated GFR 46(A) >=60 05/31/2025 5:24 PM EST [facility] Comment: NOTE New calculation for GFR (CKD-EPI 2020) is formulated without race adjustment factors at the recommendation of the National Kidney Foundation and [place] [employer]ph[employer]. This calculation has not been validated in women. For pediatric patients refer to https://www.kidney.org/professionals/KDOQI/gfr_calculatorPed 05/31/2025 12:1 9 PM EST 05/31/2025 4:53 PM EST us Fidel Vasquez MD LAB BLOOD ORDERABLES Final R esult [facility] [address] [place] [address], documented in this encounter Visit Diagnoses Not on filedocumented in this encounter Additional Health Concerns Assessment Noted Time A fall risk assessment has been complete d for the patient 02/16/2025 2:28 PM EDT documented as of this encounter Care Teams Public Speaking Teacher Relationship Specialty Start Date End Date Edson Pendleton MD [address] [place] [address] PCP - General 10/21/23 Sal Mar MD [address] [place] [address] Medical Oncologist Hematology and Oncology 10/16/23 documented as of this encounter
--- OUTSIDE RECORDS SUMMARY | 2025-07-02 17:05 | XMS_ITS | Encounter Summary ---
Author Organization [facility] Address [address] [place] [address] Care Team Providers Care Torpedo Shooter Name Role Phone Sal Mar MD Unavailable [phone] Edson Pendleton MD Primary Care Provider [phone] Encounter Details Date Type Department Care Team (Late st Contact Info) Description 05/31/2025 Orders Only [facility] [address] [place] [phone] Fidel Vasquez MD [address] [place] [address] Social History Tobacco Use Types Packs/Day Years Used Date Smoking Tobacco: Former Cigarettes 0 Q uit: 1976 Smokeless Tobacco: Never Comments [...] Diagnosis Comments CBC WITH AUTO DIFFERENTIAL Routine 05/31/2025 12:19 PM EST documented in this encounter Results * (ABNORMAL) CBC and Differential (05/31/2025 12:19 PM EST) External WBC 6.7 3.8 - 10.8 10*3/uL 05/31/2025 3:49 PM [facility] External Red Blood Cell (RBC) 3.82 3.80 - 5.20 10*6/uL 05/31/2025 3:49 PM [facility] External Hemoglobin 12.3 12.0 - 16.0 g/dL 05/31/2025 3:49 PM [facility] External Hematocrit 35.9 35.0 - 47.0 % 05/31/2025 3:49 PM [facility] External MCV 94 80 - 100 fL 05/31/2025 3:49 PM [facility] External MCH 32 26 - 35 pg 05/31/2025 3:49 PM [facility] External MCHC 34 32 - 36 g/dL 05/31/2025 3:49 PM [facility] External RDW 14.7 11.0 - 15.0 % 05/31/2025 3:49 PM [facility] External Mean Platelet Volume 7.6 6.2 - 10.5 fL 05/31/2025 3:49 PM [facility] External Platelet Count (Plt) 270 150 - 400 10*3/uL 05/31/2025 3:49 PM [facility] External Neutrophil# 5.8 1.6 - 8.4 10*3/uL 05/31/2025 3:49 PM [facility] External Lymphocyte# 0.4 0.4 - 5.1 10*3/uL 05/31/2025 3:49 PM [facility] External Absolute Monocyte (Abs [place]) 0.4 0.0 - 1.2 10*3/uL 05/31/2025 3:49 PM [facility] External Eosinophils# 0.1 0.0 - 0.8 10*3/uL 05/31/2025 3:49 PM [facility] External Baso# 0.0 0.0 - 0.3 10*3/uL 05/31/2025 3:49 PM [facility] External Neutrophils % 86.7(H) 42.0 - 78.0 % 05/31/2025 3:49 PM [facility] External Lymphocyte % 6.6(L) 11.0 - 47.0 % 05/31/2025 3:49 PM EST [facility] External Monocyte % 5.4 0.0 - 11.0 % 05/31/2025 3:49 PM EST [facility] External Eosinophil% 0.9 0.0 - 7.0 % 05/31/2025 3:49 PM EST [facility] External Basophil % 0.4 0.0 - 3.0 % 05/31/2025 3:49 PM EST [facility] External Nucleated RBC%-Auto 0.2 0.0 - 0.9 % 05/31/2025 3:49 PM EST [facility] External Nucleated RBC Absolute 0.01 Not Estab. 10*3/uL 05/31/2025 3:49 PM EST [facility] 05/31/2025 12:1 9 PM EST 05/31/2025 3:16 PM EST Fidel Vasquez MD LAB BLOOD ORDERABLES Final R esult Performing Organization Address City/State/[facility] Co de Phone Number [facility] [address] [place] [address], documented in this encounter Visit Diagnoses Not on filedocumented in this encounter Additional Health Concerns Assessment Noted Time A fall risk assessment has been complete d for the patient 02/16/2025 2:28 PM EDT documented as of this encounter Care Teams Torpedo Shooter Relationship Specialty Start Date End Date Edson Pendleton MD [address] [place] [address] PCP - General 10/21/23 Sal Mar MD [address] [place] [address] Medical Oncologist Hematology and Oncology 10/16/23 documented as of this encounter
--- OUTSIDE RECORDS SUMMARY | 2025-07-02 17:05 | XMS_ITS | Encounter Summary ---
Author Organization [facility] Address [address] [place] [address] Care Team Providers Care Linesperson Name Role Phone Sal Mar MD Unavailable [phone] Edson Pendleton MD Primary Care Provider [phone] Encounter Details Date Type Department Care Team (Late st Contact Info) Description 05/31/2025 Orders Only [facility] [address] [place] [phone] Fidel Vasquez MD [address] [place] [address] Social History Tobacco Use Types [...] (INCLUDES TRANSFERRIN) Routine 05/31/2025 12:19 PM EST documented in this encounter Results * Iron & Total Iron Binding Capacity, Plasma (Includes Transferrin) (05/31/2025 12:19 PM EST) External Iron 117 37 - 145 ug/dL 05/31/2025 5:24 PM EST [facility] External Total Iron Binding Capacity 404 250 - 450 ug/dL (calc) 05/31/2025 5:24 PM EST [facility] External Unsaturated Iron Binding Capacity 287 112 - 347 ug/dL 05/31/2025 5:24 PM EST [facility] External Iron-Saturation% 29 15 - 50 % (calc) 05/31/2025 5:24 PM EST [facility] 05/31/2025 12:1 9 PM EST 05/31/2025 4:53 PM EST us Fidel Vasquez MD LAB BLOOD ORDERABLES Final R esult Performing Organization Address City/State/[facility] Co de Phone Number [facility] [address] [place] [address], documented in this encounter Visit Diagnoses Not on filedocumented in this encounter Additional Health Concerns Assessment Noted Time A fall risk assessment has been complete d for the patient 02/16/2025 2:28 PM EDT documented as of this encounter Care Teams Linesperson Relationship Specialty Start Date End Date Edson Pendleton MD [facility] [place] [address] PCP - General 10/21/23 Sal Mar MD [address] [place] [address] Medical Oncologist Hematology and Oncology 10/16/23 documented as of this encounter
--- OUTSIDE RECORDS SUMMARY | 2025-07-02 17:05 | XMS_ITS | Encounter Summary ---
Author Organization [facility] Address [address] [place] [address] Care Team Providers Care Lead Ramp Service Man Name Role Phone Sal Mar MD Unavailable [phone] Edson Pendleton MD Primary Care Provider [phone] Encounter Details Date Type Department Care Team (Late st Contact Info) Description 05/31/2025 Orders Only [facility] [address] [place] [phone] Fidel Vasquez MD [address] [place] [address] Social History Tobacco Use Types [...] FERRITIN, SERUM Routine 05/31/2025 12:19 PM EST documented in this encounter Results * Ferritin, Serum (05/31/2025 12:19 PM EST) External Ferritin 131 13 - 157 ng/mL 05/31/2025 5:24 PM EST [facility] 05/31/2025 12:1 9 PM EST 05/31/2025 4:53 PM EST us Fidel Vasquez MD LAB BLOOD ORDERABLES Final R esult [facility] [address] [place] [address], documented in this encounter Visit Diagnoses Not on filedocumented in this encounter Additional Health Concerns Assessment Noted Time A fall risk assessment has been complete d for the patient 02/16/2025 2:28 PM EDT documented as of this encounter Care Teams Lead Ramp Service Man Relationship Specialty Start Date End Date Edson Pendleton MD [address] [place] [address] PCP - General 10/21/23 Sal Mar MD [address] [place] [address] Medical Oncologist Hematology and Oncology 10/16/23 documented as of this encounter
--- OUTSIDE RECORDS SUMMARY | 2025-07-02 17:06 | XMS_ITS | Continuity of Care Document ---
Author Organization [facility] Address [address] [address] Care Team Providers Care Assembly Instructions Writer Name Role Phone AIDEN GAMBLE Primary Care Provider STEWART BALL Magazine Worker Assessment Encounter Date Assessment Date Assessment LastModified by Organization Details LastModified Time 04/07/2025 04/07/2025 still having diarrhea better but still some liquid with frequency -- nocturnal as well start budesonide 9 gm qd rtc 1 month [id number] Not available 04/07/2025 12:38:31 Plan of Treatment Reminders Order Date Submit Date Provider Last Modified By Organization Details Last Modified Time Details Appointments RECHECK 2025 01:20P M ALIE VASQUEZ MD Not available Not available Not available LEVEL 1 2025 01:30P M STEWART BALL MD Not available Not available Not available Lab None recorded. Referral None recorded. Procedures None recorded. Surgeries None recorded. Imaging None recorded. Medication Orders budesonid e DR - ER 3 mg capsule,d elayed,ex tended release 2024 025 [facility], [address] [facility] [address], ELIUD Wade, [id number], 04/13/2025 12:39:45 Patient TargetsNo targets recorded. Patient InstructionsNo instructions recorded. Reason for Referral None Reported. Results Created Date Observation Date Name Description Value Unit Range Abnormal Flag Note LastModifiedBy Organization Detail LastModifiedTime 05/31/20 25 optic al coher ence tomog jackelyn, retin a No observ ation record ed. [email or web address] Not Available 05/31 13:05:35 05/31/20 25 05/31/2025 optic al coher ence tomog jackelyn, retin a No observ ation record ed. [email or web address] Not Available 2024 13:21:21 Result Notes None recorded. Problems Name Problem SNOMED Code Status Onset Date Resolution Date Notes Provider Name and Address Organization Details Recorded Time Crohn's disease of small intestine 24147004 Active 2014 From Automated Load;Provi cisco: Alie Vasquez; atus: Active Not Available [facility] 6 03:17:43 Neoplasm of uncertain behavior of skin 16101988 Active 2014 From Automated Load;Provi cisco: Nilton Antunez;Sta tus: Active Not Available [facility] 6 03:17:43 Inflamed seborrhei c keratosis 738257101 Active 2014 From Automated Load;Provi cisco: Nilton Antunez;Sta tus: Active Not Available [facility] 6 03:17:44 Senile hyperkera tosis 647450065 Active 2015 From Automated Load;Provi cisco: Nilton Antunez;Sta tus: Active Not Available [facility] 6 03:17:44 Presbyopi a 30066388 Active 2015 From Automated Load;Provi cisco: Stewart Ball;Stat us: Active STEWART BALL MD [address] [place] [address], [phone] , [facility] 3 15:07:09 Excess skin of eyelid 029648329 Active 2016 STEWART BALL MD [address] [place] [address], [phone] , [facility] 3 15:07:08 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 2016 STEWART BALL MD [address] [place] [address], [phone] , [facility] 3 15:07:08 Nonexudat sadiq age-relat ed macular degenerat ion 780902660 Active 2016 STEWART BALL MD [facility] [place] [place], [address] , [facility] 3 15:07:08 Hypermetr opia 12313979 Active 2016 STEWART BALL MD [facility] [address] [place], [address] , [facility] 3 15:07:09 Regular astigmati sm 14214799 Active 2016 STEWART BALL MD [facility] [place], [address] , [facility] 3 15:07:09 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 Procedures Surgical History Date Name Laterality Status Provider Name and Address Organization Details Recorded Time 05/31/20 25 OCT/Retina completed STEWART BALL MD [address] [place] [address], [phone], [facility] 05/31/2025 11:29:35 05/18/20 24 OCT/Retina completed STEWART BALL MD [facility] [place], [address], [facility] 05/18/2024 14:02:51 05/09/20 23 OCT/Retina completed STEWART BALL MD [address] [place] [address], [phone], [facility] 05/09/2023 15:06:01 05/03/20 22 OCT/Retina completed STEWART BALL MD [address] [place] [address], [address], [facility] 05/03/2022 16:28:16 08/22/19 22 Destruction Premalignant Lesion(s) completed NILTON ANTUNEZ MD [address] [place] [address], [phone], [facility] 08/22/2021 16:52:42 08/22/19 22 Destruction BN Lesions completed Meryl Cota [facility] 08/22/2021 15:57:56 08/08/19 21 OCT/Retina completed STEWART BALL MD [address] [place] [address], [phone] 08/08/2020 17:09:48 05/13/20 20 DXA Low Bone Mass 2 - Tx completed CODEY YATES MD [address] [place] [address], [address], [facility] 05/13/2020 16:04:39 02/27/20 19 OCT/Retina completed STEWART BALL MD [address] [place] [address], [phone], [facility] 02/26/2019 15:43:22 02/27/20 19 Refraction completed STEWART BALL MD [address] [place] [address], [phone] [place] [address] 02/26/2019 15:42:39 11/25/19 19 Endoscopy Nasal; Diagnostic completed NINA STONE MD [address] [place] [address], [phone], [facility] 11/24/2018 16:34:59 03/19/20 18 OCT/Retina completed Monique Ram [facility] 03/19/2018 10:35:33 07/01/20 17 Refraction completed STEWART BALL MD [address] [place] [address], [address], [facility] 07/01/2017 16:08:10 06/21/20 17 DXA Low Bone Mass 2 - Tx completed CODEY YATES MD [address] [place] [address], [phone], [facility] 06/21/2017 16:40:17 09/10/19 17 Destruction BN Lesions completed Meryl Cota [facility] 09/10/2016 14:27:58 09/10/19 17 Shave Lesion; scalp, neck, hand, foot, genitalia completed NILTON ANTUNEZ MD [address] [place] [address] [place], [address], [facility] 09/13/2016 18:12:00 Appendectomy completed [facility] 06/27/2016 15:48:58 Incision of gallbladder completed [facility] 06/27/2016 15:49:12 Other completed [facility] 06/27/2016 15:49:50 Imaging Results None recorded. Procedure Notes None recorded. Medical Equipment None Reported. Allergies Allergen ID Allergen Name Allergen Category Reaction Reaction Severity Criticality Documentation Date Start Date Code Code System Note Provider Name and Address Organization Details Recorded Time 857395 tetracycl ine hydrochlo ride medicatio n rash Not available Not available 06/07/20162005 52051 6 RxNorm React ion: RASH; Comme nt: itchi ng;Cr eated By: Navi Germain ;Crea lopez Date: 06/03 12:07 :13 PM; Not Available [facility] 6 11:16:06 797693 E-Mycin medicatio n other Not available Not available 06/07/20162005 71140 8 RxNorm React ion: OTHER ; Comme nt: felt faint ;Crea lopez By: Navi EdwardCrea lopez Date: 06/03 12:08 :16 PM; Not Available [facility] 6 11:16:06 370686 Product containin g penicilli n (product) medicatio n other moderate Not available 06/07/20162005 48952 8001 SNOMED React ion: OTHER ;Ana rity: Moder ate; Comme nt: felt faint ,;Cre ated By: Navi EdwardCrea lopez Date: 06/03 12:02 :37 PM; Not Available [facility] 6 11:16:06 728836 corticotr opin medicatio n other Not available Not available 06/07/20162005 376 RxNorm React ion: OTHER ; Comme nt: flush ed;Cr eated By: Navi Germain ;Crea lopez Date: 06/03 12:09 :34 PM; Not Available [facility] 6 11:16:06 428748 Celestone medicatio n other Not available Not available 06/07/2016200569 9 RxNorm React ion: OTHER ; Comme nt: felt flush ed had with amggie winslow;Cre ated By: Navi Germain ;Crea lopez Date: 06/03 12:12 :25 PM; Not Available [facility] 6 14:09:41 365758 streptomy kathy sulfate medicatio n other Not available Not available 06/07/20162005 60013 RxNorm React ion: OTHER ;Ana rity: Unkno wn; Comme nt: felt flush ed;Cr eated By: Navi Germain ;Crea lopez Date: 06/03 12:05 :45 PM; Not Available [facility] 6 14:09:41 923507 atropine / chlorphen iramine / hyoscyami ne / pseudoeph edrine / scopolami ne medicatio n other Not available Not available 06/07/20162005 09908 67 RxNorm React ion: OTHER ; Comme nt: felt flush ed had toget her with nicolás tone; Creat ed By: Navi Germain ;Crea lopez Date: 06/03 12:11 :27 PM; Not Available [facility] 6 14:09:41 293629 Dexferrum medicatio n respirato ry distress severe Not available 06/07/20162005 30741 5 RxNorm React ion: SHORT NESS OF BREAT H;Sev erity : Sever e; Comme nt: flush ed, felt faint ;Crea lopez By: Navi Germain ;Crea lopez Date: 06/03 11:59 :50 AM; Not Available [facility] 6 14:24:12 640998 clonidine medicatio n hallucina tions Not available Not available 08/08/2020 2599 RxNorm IonELIUD [facility] 16:12:00 750565 sulfameth oxazole / trimethop rim medicatio n Not available Not available Not available 05/31/2025 13988 RxNorm Not Available [email or web address] 5 06:51:09 464114 nebivolol medicatio n Not available Not available Not available 05/31/2025 22990 RxNorm Not Available [email or web address] 5 06:51:09 382722 cefuroxim e Not available Not available Not available Not available 05/31/2025 2194 RxNorm Not Available [email or web address] 5 06:51:09 429308 betametha sone / betametha sone acetate medicatio n Not available Not available Not available 05/31/2025 93099 39 RxNorm Not Available [email or web address] 5 06:51:09 499439 erythromy kathy medicatio n Not available Not available Not available 05/31/2025 4053 RxNorm Not Available [employer] [email or web address] 5 06:51:09 669561 clindamyc in Not available Not available Not available Not available 05/31/2025 2582 RxNorm Not Available [email or web address] 5 06:51:09 040237 streptomy kathy medicatio n Not available Not available Not available 05/31/2025 56718 RxNorm Not Available [email or web address] 5 06:51:09 214330 tetracycl ine medicatio n Not available Not available Not available 05/31/2025 53511 RxNorm Not Available [employer] [email or web address] 5 06:51:09 Medications Name Sig Start Date [...] B-12 Once monthly active Frequenc y: 1x /month;Lynne minor Descript ion: cyanocob alamin; Dosage:a s directed [...] Not Available Not Available Not Available Vitals None Recorded Social History Question Answer Notes LastModified by Organizat ion Details LastModified Time Tobacco Smoking Status Former Smoker Vickie Hodge [facility] 06/27/2016 15:48:49 What Was The Date [...] available 2015 15:48:39 Medical History Condition Response COPD Y Anxiety Disorder Y Skin Cancer N GI Problems Y Anemia Y Tuberculosis Y Age-related Macular Degeneration Y Cataract Y Hypertension Y Glasses/Contacts Y Gynecological HistoryNo gynecological history recorded. Obstetrics History GPAL:G 0 P 0 0 0 0 Immunizations Vaccine Type Date Status Note Provider Nam e and Address Organization Details Recorded Time Influenza, high-dose, trivalent, PF 7 completed Not Available [facility] 05/31/2025 10:36:58 Influenza, high-dose, trivalent, PF 8 completed Not Available [facility] 05/31/2025 10:36:58 pneumococcal polysaccharide PPV23 8 completed Not Available [facility] 05/31/2025 10:36:58 Influenza, high-dose, trivalent, PF 9 completed Not Available [facility] 05/31/2025 10:36:58 Influenza, high-dose, trivalent, PF 0 completed Not Available [facility] 05/31/2025 10:36:58 COVID-19, mRNA, LNP-S, PF, 100 mcg/0.5mL dose or 50 mcg/0.25mL dose 1 completed Not Available [facility] 05/31/2025 10:36:58 COVID-19, mRNA, LNP-S, PF, 100 mcg/0.5mL dose or 50 mcg/0.25mL dose 1 completed Not Available [facility] 05/31/2025 10:36:58 Influenza, high-dose, quadrivalent, PF 1 completed Not Available [facility] 05/31/2025 10:36:58 COVID-19, mRNA, LNP-S, PF, 100 mcg/0.5mL dose or 50 mcg/0.25mL dose 1 completed Not Available [facility] 05/31/2025 10:36:58 COVID-19, mRNA, LNP-S, PF, 100 mcg/0.5mL dose or 50 mcg/0.25mL dose 2 completed Not Available [facility] 05/31/2025 10:36:58 COVID-19, mRNA, LNP-S, bivalent, PF, 50 mcg/0.5 mL or 25mcg/0.25 mL dose 2 completed Not Available [facility] 05/31/2025 10:36:58 Pneumococcal conjugate PCV20, polysaccharide BLS551 conjugate, adjuvant, PF 3 completed Not Available [facility] 05/31/2025 10:36:58 COVID-19, mRNA, LNP-S, PF, 50 mcg/0.5 mL 3 completed Not Available [facility] 05/31/2025 10:36:58 RSV, recombinant, protein subunit RSVpreF, adjuvant reconstituted, 0.5 mL, PF 3 completed Not Available [facility] 05/31/2025 10:36:58 COVID-19, mRNA, LNP-S, PF, jenny-sucrose, 30 mcg/0.3 mL 4 completed Not Available [facility] 05/31/2025 10:36:58 RSV, bivalent, protein subunit RSVpreF, diluent reconstituted, 0.5 mL, PF 4 completed Not Available [facility] 05/31/2025 10:36:58 Past Encounters Encounter ID Performer Location Encounter Start Date Encounter Closed Date Diagnosis/Indication Diagnosis SNOMED-CT Code Diagnosis ICD10 Code Diagnosis IMO Codes Diagnosis Note [id number] ALIE VASQUEZ MD [facility] [address] [place] [address], [place] [phone] 03/24/2025 08:40:31 03/25/2025 11:43:26 Acute diarrhea 691171447 R19.7 64281 worsened after magnesium iv infusions -- noted when there for back painweight loss now only about 2 x a day- Monitor symptoms and dietary intake. - Follow-up in two weeks to reassess condition. Enteritis of small intestine 11199678 K52.9 33506 - Monitor for symptom progressio n or improvemen t. Crohn's di sease of small intestine 34180527 K50.00 2136965 - Consider more testing or steroid treatment if symptoms persist.- Follow-up in two weeks to evaluate symptom status. Iron defic iency anemia 67361437 D50.9 38189537 [id number] ALIE VASQUEZ MD [facility] [address] [place] [address], [place] [phone] 04/07/2025 11:05:48 04/08/2025 08:34:36 Acute diarrhea 471519839 R19.7 33528 not going away -- may be secondary to crohns - Start budesonide for symptom management . - Reassess in one month. Enteritis of small intestine 45838878 K52.9 34554 Crohn's di sease of small intestine 94251835 K50.00 1080079 - Prescribe budesonide for inflammati on.- Follow-up in one month. Iron defic iency anemia 12706017 D50.9 [id number] Health Concerns Section Related Observation LastModified by Organization Detai ls LastModified Time None Recorded Concern Status LastModified by Organization Details LastModified Time None Recorded Payers Encounter Date Sequence Insurance Name Policy Number Policy Gupta Covered Member ID Gupta Member ID Guarantor Name 04/07/2025 1 [place] Alejandra Ramos [id number] Alejandra Ramos 04/07/2025 2 [employer] (MEDICARE SUPPLEMENT) Alejandra Ramos [id number] Alejandra Ramos Notes Date Note Type Note Provider Name and Address Organization Details Recorded Time 04/07/2025 text/html Visit today is being conducted via telehealth using both audio/video. The patient confirms that he/she is physically located in [place] at the time of this visit. Patient expressed understanding of audio/video telehealth as a billable visit and has consented. Patient also expressed understanding that not every condition can be appropriately addressed via telehealth and that this telehealth visit may need to be converted to an in-person visit or may even result in a recommendation to go to the E.R. at the provider s discretion in order to provide the best possible care. diarrhea better --- The patient is an 84-year-old female presenting with acute diarrhea and Crohn's disease. - Diarrhea began weeks ago, initially severe, now less frequent but watery, especially at night. - Improved appetite and color, occasional warmth, temperature not exceeding 99 F. - Consuming nutritional drinks and high-calorie foods for nutrition. - Crohn's disease inactive for 25 years. - Back compression fracture under physical therapy, showing improvement. Documentation on this patient encounter was supported using voice-enabled Al technology. The patient consented to recording for the purpose of documenting the encounter. Provider reviewed content of the generated note prior to signature. ALIE VASQUEZ MD [address] [place] [address], [phone], [facility] 04/13/2025 12:27:25 OBGyn Episode No OBEpisode recorded.
--- OUTSIDE RECORDS SUMMARY | 2025-07-02 17:06 | XMS_ITS | Data Portability ---
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 Encounter Date Assessment Date Assessment LastModified by Organization Details LastModified Time 03/24/2025 03/24/2025 rtc 2 weeks [email or web address] Not available 12:57:40 04/07/2025 04/07/2025 still having diarrhea better but [...] mg capsule,d elayed,ex tended release 2024 [id number] [facility], [address] [facility] [address] [facility], [place], [id number], 04/13/2025 12:39:45 Imuran 50 mg tablet 2024 [id number] [email or web address] [facility], [address] [facility], [place], [address], 09/14/2024 13:54:00 Patient TargetsNo targets recorded. 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 Results Created Date Observation Date Name Description Value Unit Range Abnormal Flag Note LastModifiedBy Organization Detail LastModifiedTime 09/08/1909/08/2024 JUANA TIN ferritin 32 NG/mL 13-157 normal Not Available [facility] [address] [place] [address], [address], 09/08/2024 15:18:56 09/08/19 25 09/08/2024 IRON PANEL -TOTA L AND TIBC iron 94 ug/dL 37-145 normal Not Available [facility] [address] [place] [address], [address], 09/08/2024 15:18:55 09/08/19 25 09/08/2024 IRON PANEL -TOTA L AND TIBC total iron binding cap. 440 ug/dL _(kyree c) 250-45 0 normal Not Available [facility] [address] [place] [address], [address], 09/08/2024 15:18:55 09/08/19 25 09/08/2024 IRON PANEL -TOTA L AND TIBC unsat.iron binding cap. 346 ug/dL 112-34 7 normal Not Available [facility] [address] [place] [address], [address], 09/08/2024 15:18:55 09/08/19 25 09/08/2024 IRON PANEL -TOTA L AND TIBC % saturation 21 %_(ca lc) 15-50 normal Not Available [facility] [address] [place] [address], [address], 09/08/2024 15:18:55 09/08/19 25 09/08/2024 COMP. METAB OLIC PANEL glucose 91 mg/dL 74-100 normal Not Available [facility] [address] [place] [address], [address], 09/08/2024 15:18:54 09/08/19 25 09/08/2024 COMP. METAB OLIC PANEL blood urea nitrogen 21 mg/dL 6-20 high Not Available [facility] [address] [place] [address], [address], 09/08/2024 15:18:54 09/08/19 25 09/08/2024 COMP. METAB OLIC PANEL creatinine 1.39 mg/dL 0.50-0 .95 high Not Available [facility] [address] [place] [address], [address], 09/08/2024 15:18:54 09/08/19 25 09/08/2024 COMP. METAB OLIC PANEL BUN/creatini ne ratio 15 (calc ) 10-20 normal Not Available [facility] [address] [place] [address], [address], 09/08/2024 15:18:54 09/08/19 25 09/08/2024 COMP. METAB OLIC PANEL sodium 143 mmol/ L 136-14 5 normal Not Available [facility] [address] [place] [address], [address], 09/08/2024 15:18:54 09/08/19 25 09/08/2024 COMP. METAB OLIC PANEL potassium 4.1 mmol/ L 3.4-5. 0 normal Not Available [facility] [address] [place] [address], [address], 09/08/2024 15:18:54 09/08/19 25 09/08/2024 COMP. METAB OLIC PANEL chloride 105 mmol/ L 98-107 normal Not Available [facility] [address] [place] [address], [address], 09/08/2024 15:18:54 09/08/19 25 09/08/2024 COMP. METAB OLIC PANEL carbon dioxide 26 mmol/ L 22-31 normal Not Available [facility] [address] [place] [address], [address], 09/08/2024 15:18:54 09/08/19 25 09/08/2024 COMP. METAB OLIC PANEL anion gap 12 (calc ) 7-25 normal Not Available [facility] [address] [place] [address], [address], 09/08/2024 15:18:54 09/08/19 25 09/08/2024 COMP. METAB OLIC PANEL calcium 9.1 mg/dL 8.6-10 .2 normal Not Available [facility] [address] [place] [address], [address], 09/08/2024 15:18:54 09/08/19 25 09/08/2024 COMP. METAB OLIC PANEL total protein 6.4 g/dL 6.4-8. 3 normal Not Available [facility] [address] [place] [address], [address], 09/08/2024 15:18:54 09/08/19 25 09/08/2024 COMP. METAB OLIC PANEL albumin 3.9 g/dL 3.5-5. 2 normal Not Available [facility] [address] [place] [address], [address], 09/08/2024 15:18:54 09/08/19 25 09/08/2024 COMP. METAB OLIC PANEL globulin 2.5 1.5-4. 5 normal Not Available [facility] [address] [place] [address], [address], 09/08/2024 15:18:54 09/08/19 25 09/08/2024 COMP. METAB OLIC PANEL albumin/glob ulin ratio 1.6 (calc ) 1.1-2. 5 normal Not Available [facility] [address] [place] [address], [address], 09/08/2024 15:18:54 09/08/19 25 09/08/2024 COMP. METAB OLIC PANEL bilirubin, total 0.2 mg/dL 0.1-1. 2 normal Not Available [facility] [address] [place] [address], [address], 09/08/2024 15:18:54 09/08/19 25 09/08/2024 COMP. METAB OLIC PANEL alkaline phosphatase 46 U/L 30-121 normal Not Available [facility] [address] [place] [address], [address], 09/08/2024 15:18:54 09/08/19 25 09/08/2024 COMP. METAB OLIC PANEL AST 20 U/L 0-32 normal Not Available [facility] [address] [place] [address], [address], 09/08/2024 15:18:54 09/08/19 25 09/08/2024 COMP. METAB OLIC PANEL ALT 12 U/L 0-33 normal Not Available [facility] [address] [place] [address], [phone], 09/08/2024 15:18:54 09/08/19 25 09/08/2024 COMP. METAB OLIC PANEL GFR 37 >= 60 abnormal NOT E New calcu latio n for GFR (CKD- EPI 2020) is formu lated witho ut race adjus tment facto rs at the recom menda tion of the [employer] and [employer] of Nephr ology . This calcu latio n has not been valid ated in pregn ant women . For marcello rangel nts refer to https ://andrew strong.jann nicole/rivka raines s/KDO QI/gf r_cal culat orPed Not Available [facility] [address] [place] [address], [phone], 09/08/2024 15:18:54 09/08/19 25 09/08/2024 COMPL ETE BLOOD COUNT white blood cells 4.2 10*3/ uL 3.8-10 .8 normal Not Available [facility] [address] [place] [address], [address], 09/08/2024 14:50:20 09/08/19 25 09/08/2024 COMPL ETE BLOOD COUNT red blood cells 3.58 10*6/ uL 3.80-5 .20 low Not Available [facility] [address] [place], [address], 09/08/2024 14:50:20 09/08/19 25 09/08/2024 COMPL ETE BLOOD COUNT hemoglobin 11.0 g/dL 12.0-1 6.0 low Not Available [facility] [address] [place], [address], 09/08/2024 14:50:20 09/08/19 25 09/08/2024 COMPL ETE BLOOD COUNT hematocrit 33.3 % 35.0-4 7.0 low Not Available [facility] [address] [place] [address], [address], 09/08/2024 14:50:20 09/08/19 25 09/08/2024 COMPL ETE BLOOD COUNT MCV 93 fL 80-100 normal Not Available [facility] [address] [place], [address], 09/08/2024 14:50:20 09/08/19 25 09/08/2024 COMPL ETE BLOOD COUNT MCH 31 pg 26-35 normal Not Available [facility] [address] [place] [address], [address], 09/08/2024 14:50:20 09/08/19 25 09/08/2024 COMPL ETE BLOOD COUNT MCHC 33 g/dL 32-36 normal Not Available [facility] [address] [place] [address], [address], 09/08/2024 14:50:20 09/08/19 25 09/08/2024 COMPL ETE BLOOD COUNT RDW 13.8 % 11.0-1 5.0 normal Not Available [facility] [address] [place] [address], [address], 09/08/2024 14:50:20 09/08/19 25 09/08/2024 COMPL ETE BLOOD COUNT MPV 7.7 fL 6.2-10 .5 normal Not Available [facility] [address] [place] [address], [address], 09/08/2024 14:50:20 09/08/19 25 09/08/2024 COMPL ETE BLOOD COUNT platelet count 235 10*3/ uL 150-40 0 normal Not Available [facility] [address] [place] [address], [address], 09/08/2024 14:50:20 09/08/19 25 09/08/2024 COMPL ETE BLOOD COUNT neutrophil,a bsolute 3.1 10*3/ uL 1.6-8. 4 normal Not Available [facility] [address] [place] [address], [address], 09/08/2024 14:50:20 09/08/19 25 09/08/2024 COMPL ETE BLOOD COUNT lymphocyte,a bsolute 0.6 10*3/ uL 0.4-5. 1 normal Not Available [facility] [address] [place] [address], [address], 09/08/2024 14:50:20 09/08/19 25 09/08/2024 COMPL ETE BLOOD COUNT monocyte,abs olute 0.3 10*3/ uL 0.0-1. 2 normal Not Available [facility] [address] [place] [address], [address], 09/08/2024 14:50:20 09/08/19 25 09/08/2024 COMPL ETE BLOOD COUNT eosinophil,a bsolute 0.1 10*3/ uL 0.0-0. 8 normal Not Available [facility] [address] [place] [address], [address], 09/08/2024 14:50:20 09/08/19 25 09/08/2024 COMPL ETE BLOOD COUNT basophil,abs olute 0.0 10*3/ uL 0.0-0. 3 normal Not Available [facility] [address] [place] [address], [address], 09/08/2024 14:50:20 09/08/19 25 09/08/2024 COMPL ETE BLOOD COUNT % neutrophils 74.4 % 42.0-7 8.0 normal Not Available [facility] [address] [place] [address], [address], 09/08/2024 14:50:20 09/08/19 25 09/08/2024 COMPL ETE BLOOD COUNT % lymphocytes 15.1 % 11.0-4 7.0 normal Not Available [facility] [address] [place] [address], [address], 09/08/2024 14:50:20 09/08/19 25 09/08/2024 COMPL ETE BLOOD COUNT % monocytes 7.6 % 0.0-11 .0 normal Not Available [facility] [address] [place] [address], [address], 09/08/2024 14:50:20 09/08/19 25 09/08/2024 COMPL ETE BLOOD COUNT % eosinophils 1.8 % 0.0-7. 0 normal Not Available [facility] [address] [place] [address], [address], 09/08/2024 14:50:20 09/08/19 25 09/08/2024 COMPL ETE BLOOD COUNT % basophils 1.1 % 0.0-3. 0 normal Not Available [facility] [address] [place] [address], [address], 09/08/2024 14:50:20 09/08/19 25 09/08/2024 COMPL ETE BLOOD COUNT nucleated red cells 0.0 % 0.0-0. 9 normal Not Available [facility] [address] [place] [address], [address], 09/08/2024 14:50:20 09/08/19 25 09/08/2024 COMPL ETE BLOOD COUNT nucleated RBCs, absolute 0.00 10*3/ uL not estab. normal Not Available [facility] [address] [place] [address], [address], 09/08/2024 14:50:20 11/25/19 25 11/24/2024 COMPL ETE BLOOD COUNT white blood cells 5.1 10*3/ uL 3.8-10 .8 normal Not Available [facility] [address] [place] [address], [address], 11/24/2024 18:38:13 11/25/19 25 11/24/2024 COMPL ETE BLOOD COUNT red blood cells 3.44 10*6/ uL 3.80-5 .20 low Not Available [facility] [address] [place] [address], [address], 11/24/2024 18:38:13 11/25/19 25 11/24/2024 COMPL ETE BLOOD COUNT hemoglobin 10.6 g/dL 12.0-1 6.0 low Not Available [facility] [address] [place] [address], [address], 11/24/2024 18:38:13 11/25/19 25 11/24/2024 COMPL ETE BLOOD COUNT hematocrit 31.7 % 35.0-4 7.0 low Not Available [facility] [address] [place] [address], [address], 11/24/2024 18:38:13 11/25/19 25 11/24/2024 COMPL ETE BLOOD COUNT MCV 92 fL 80-100 normal Not Available [facility] [address] [place] [address], [address], 11/24/2024 18:38:13 11/25/1911/24/2024 COMPL ETE BLOOD COUNT MCH 31 pg 26-35 normal Not Available [facility] [address] [place] [address], [address], 11/24/2024 18:38:13 11/25/1911/24/2024 COMPL ETE BLOOD COUNT MCHC 34 g/dL 32-36 normal Not Available [facility] [address] [place] [address], [address], 11/24/2024 18:38:13 11/25/19 25 11/24/2024 COMPL ETE BLOOD COUNT RDW 13.8 % 11.0-1 5.0 normal Not Available [facility] [address] [place] [address], [address], 11/24/2024 18:38:13 11/25/19 25 11/24/2024 COMPL ETE BLOOD COUNT MPV 8.2 fL 6.2-10 .5 normal Not Available [facility] [address] [place] [address], [address], 11/24/2024 18:38:13 11/25/19 25 11/24/2024 COMPL ETE BLOOD COUNT platelet count 261 10*3/ uL 150-40 0 normal Not Available [facility] [address] [place] [address], [address], 11/24/2024 18:38:13 11/25/19 25 11/24/2024 COMPL ETE BLOOD COUNT neutrophil,a bsolute 3.9 10*3/ uL 1.6-8. 4 normal Not Available [facility] [address] [place] [address], [address], 11/24/2024 18:38:13 11/25/19 25 11/24/2024 COMPL ETE BLOOD COUNT lymphocyte,a bsolute 0.6 10*3/ uL 0.4-5. 1 normal Not Available [facility] [address] [place] [address], [address], 11/24/2024 18:38:13 11/25/19 25 11/24/2024 COMPL ETE BLOOD COUNT monocyte,abs olute 0.4 10*3/ uL 0.0-1. 2 normal Not Available [facility] [address] [place] [address], [address], 11/24/2024 18:38:13 11/25/19 25 11/24/2024 COMPL ETE BLOOD COUNT eosinophil,a bsolute 0.1 10*3/ uL 0.0-0. 8 normal Not Available [facility] [address] [place] [address], [address], 11/24/2024 18:38:13 11/25/19 25 11/24/2024 COMPL ETE BLOOD COUNT basophil,abs olute 0.1 10*3/ uL 0.0-0. 3 normal Not Available [facility] [address] [place] [address], [address], 11/24/2024 18:38:13 11/25/19 25 11/24/2024 COMPL ETE BLOOD COUNT % neutrophils 76.4 % 42.0-7 8.0 normal Not Available [facility] [address] [place] [address], [address], 11/24/2024 18:38:13 11/25/19 25 11/24/2024 COMPL ETE BLOOD COUNT % lymphocytes 12.7 % 11.0-4 7.0 normal Not Available [facility] [address] [place] [address], [address], 11/24/2024 18:38:13 11/25/19 25 11/24/2024 COMPL ETE BLOOD COUNT % monocytes 7.2 % 0.0-11 .0 normal Not Available [facility] [address] [place] [address], [address], 11/24/2024 18:38:13 11/25/19 25 11/24/2024 COMPL ETE BLOOD COUNT % eosinophils 2.6 % 0.0-7. 0 normal Not Available [facility] [address] [place] [address], [address], 11/24/2024 18:38:13 11/25/19 25 11/24/2024 COMPL ETE BLOOD COUNT % basophils 1.1 % 0.0-3. 0 normal Not Available [facility] [address] [place] [address], [address], 11/24/2024 18:38:13 11/25/19 25 11/24/2024 COMPL ETE BLOOD COUNT nucleated red cells 0.1 % 0.0-0. 9 normal Not Available [facility] [address] [place] [address], [address], 11/24/2024 18:38:13 11/25/19 25 11/24/2024 COMPL ETE BLOOD COUNT nucleated RBCs, absolute 0.00 10*3/ uL not estab. normal Not Available [facility] [address] [place] [address], [address], 11/24/2024 18:38:13 11/25/19 25 11/24/2024 JUANA TIN ferritin 13 NG/mL 13-157 normal Not Available [facility] [address] [place] [address], [address], 11/24/2024 19:09:23 01/26/20 25 01/25/2025 JUANA TIN ferritin 13 NG/mL 13-157 normal Not Available [facility] [address] [place] [address], [address], 01/25/2025 19:00:30 01/26/20 25 01/25/2025 IRON PANEL -TOTA L AND TIBC iron 45 ug/dL 37-145 normal Not Available [facility] [address] [place] [address], [address], 01/25/2025 19:00:29 01/26/20 25 01/25/2025 IRON PANEL -TOTA L AND TIBC total iron binding cap. 498 ug/dL _(kyree c) 250-45 0 high Not Available [facility] [address] [place] [address], [address], 01/25/2025 19:00:29 01/26/20 25 01/25/2025 IRON PANEL -TOTA L AND TIBC unsat.iron binding cap. 453 ug/dL 112-34 7 high Not Available [facility] [address] [place] [address], [address], 01/25/2025 19:00:29 01/26/20 25 01/25/2025 IRON PANEL -TOTA L AND TIBC % saturation 9 %_(ca lc) 15-50 low Not Available [facility] [address] [place] [address], [address], 01/25/2025 19:00:29 01/26/2001/25/2025 COMP. METAB OLIC PANEL glucose 104 mg/dL 74-100 high Not Available [facility] [address] [place] [address], [address], 01/25/2025 19:00:27 01/26/20 25 01/25/2025 COMP. METAB OLIC PANEL blood urea nitrogen 21 mg/dL 6-20 high Not Available [facility] [address] [place] [address], [address], 01/25/2025 19:00:27 01/26/20 25 01/25/2025 COMP. METAB OLIC PANEL creatinine 1.47 mg/dL 0.50-0 .95 high Not Available [facility] [address] [place] [address], [address], 01/25/2025 19:00:27 01/26/20 25 01/25/2025 COMP. METAB OLIC PANEL BUN/creatini ne ratio 14 (calc ) 10-20 normal Not Available [facility] [address] [place] [address], [address], 01/25/2025 19:00:27 01/26/20 25 01/25/2025 COMP. METAB OLIC PANEL sodium 142 mmol/ L 136-14 5 normal Not Available [facility] [address] [place] [address], [address], 01/25/2025 19:00:27 01/26/20 25 01/25/2025 COMP. METAB OLIC PANEL potassium 4.2 mmol/ L 3.4-5. 0 normal Not Available [facility] [address] [place] [address], [address], 01/25/2025 19:00:27 01/26/20 25 01/25/2025 COMP. METAB OLIC PANEL chloride 107 mmol/ L 98-107 normal Not Available [facility] [address] [place] [address], [address], 01/25/2025 19:00:27 01/26/20 25 01/25/2025 COMP. METAB OLIC PANEL carbon dioxide 23 mmol/ L 22-31 normal Not Available [facility] [address] [place] [address], [address], 01/25/2025 19:00:27 01/26/20 25 01/25/2025 COMP. METAB OLIC PANEL anion gap 12 (calc ) 7-25 normal Not Available [facility] [address] [place] [address], [address], 01/25/2025 19:00:27 01/26/20 25 01/25/2025 COMP. METAB OLIC PANEL calcium 8.4 mg/dL 8.6-10 .2 low Not Available [facility] [address] [place] [address], [address], 01/25/2025 19:00:27 01/26/20 25 01/25/2025 COMP. METAB OLIC PANEL total protein 6.3 g/dL 6.4-8. 3 low Not Available [facility] [address] [place] [address], [address], 01/25/2025 19:00:27 01/26/20 25 01/25/2025 COMP. METAB OLIC PANEL albumin 3.7 g/dL 3.5-5. 2 normal Not Available [facility] [address] [place] [address], [address], 01/25/2025 19:00:27 01/26/20 25 01/25/2025 COMP. METAB OLIC PANEL globulin 2.6 1.5-4. 5 normal Not Available [facility] [address] [place] [address], [address], 01/25/2025 19:00:27 01/26/20 25 01/25/2025 COMP. METAB OLIC PANEL albumin/glob ulin ratio 1.4 (calc ) 1.1-2. 5 normal Not Available [facility] [address] [place] [address], [address], 01/25/2025 19:00:27 01/26/20 25 01/25/2025 COMP. METAB OLIC PANEL bilirubin, total <0.2 mg/dL 0.1-1. 2 normal Not Available [facility] [address] [place] [address], [address], 01/25/2025 19:00:27 01/26/20 25 01/25/2025 COMP. METAB OLIC PANEL alkaline phosphatase 72 U/L 30-121 normal Not Available [facility] [address] [place] [address], [address], 01/25/2025 19:00:27 01/26/20 25 01/25/2025 COMP. METAB OLIC PANEL AST 17 U/L 0-32 normal Not Available [facility] [address] [place] [address], [address], 01/25/2025 19:00:27 01/26/20 25 01/25/2025 COMP. METAB OLIC PANEL ALT 10 U/L 0-33 normal Not Available [facility] [address] [place] [address], [address], 01/25/2025 19:00:27 01/26/20 25 01/25/2025 COMP. METAB OLIC PANEL eGFR 34 >= 60 abnormal NOT E New [...] QI/gf r_cal culat orPed Not Available [facility] [address] [place] [address], [address], 01/25/2025 19:00:27 01/26/2001/25/2025 COMPL ETE BLOOD COUNT white blood cells 4.8 10*3/ uL 3.8-10 .8 normal Not Available [facility] [address] [place] [address], [address], 01/25/2025 18:35:50 01/26/20 25 01/25/2025 COMPL ETE BLOOD COUNT red blood cells 3.13 10*6/ uL 3.80-5 .20 low Not Available [facility] [address] [place] [address], [address], 01/25/2025 18:35:50 01/26/20 25 01/25/2025 COMPL ETE BLOOD COUNT hemoglobin 9.4 g/dL 12.0-1 6.0 low Not Available [facility] [address] [place] [address], [address], 01/25/2025 18:35:50 01/26/20 25 01/25/2025 COMPL ETE BLOOD COUNT hematocrit 27.9 % 35.0-4 7.0 low Not Available [facility] [address] [place] [address], [address], 01/25/2025 18:35:50 01/26/20 25 01/25/2025 COMPL ETE BLOOD COUNT MCV 89 fL 80-100 normal Not Available [facility] [address] [place] [address], [address], 01/25/2025 18:35:50 01/26/20 25 01/25/2025 COMPL ETE BLOOD COUNT MCH 30 pg 26-35 normal Not Available [facility] [address] [place] [address], [address], 01/25/2025 18:35:50 01/26/20 25 01/25/2025 COMPL ETE BLOOD COUNT MCHC 34 g/dL 32-36 normal Not Available [facility] [address] [place] [address], [address], 01/25/2025 18:35:50 01/26/20 25 01/25/2025 COMPL ETE BLOOD COUNT RDW 14.2 % 11.0-1 5.0 normal Not Available [facility] [address] [place] [address], [address], 01/25/2025 18:35:50 01/26/20 25 01/25/2025 COMPL ETE BLOOD COUNT MPV 7.6 fL 6.2-10 .5 normal Not Available [facility] [facility] [address] [place] [address], [address], 01/25/2025 18:35:50 01/26/20 25 01/25/2025 COMPL ETE BLOOD COUNT platelet count 328 10*3/ uL 150-40 0 normal Not Available [facility] [address] [place] [address], [address], 01/25/2025 18:35:50 01/26/20 25 01/25/2025 COMPL ETE BLOOD COUNT neutrophil,a bsolute 3.5 10*3/ uL 1.6-8. 4 normal Not Available [facility] [address] [place] [address], [address], 01/25/2025 18:35:50 01/26/2001/25/2025 COMPL ETE BLOOD COUNT lymphocyte,a bsolute 0.6 10*3/ uL 0.4-5. 1 normal Not Available [facility] [address] [place] [address], [address], 01/25/2025 18:35:50 01/26/2001/25/2025 COMPL ETE BLOOD COUNT monocyte,abs olute 0.4 10*3/ uL 0.0-1. 2 normal Not Available [facility] [address] [place] [address], [address], 01/25/2025 18:35:50 01/26/2001/25/2025 COMPL ETE BLOOD COUNT eosinophil,a bsolute 0.1 10*3/ uL 0.0-0. 8 normal Not Available [facility] [address] [place] [address], [address], 01/25/2025 18:35:50 01/26/2001/25/2025 COMPL ETE BLOOD COUNT basophil,abs olute 0.1 10*3/ uL 0.0-0. 3 normal Not Available [facility] [address] [place] [address], [address], 01/25/2025 18:35:50 01/26/20 25 01/25/2025 COMPL ETE BLOOD COUNT % neutrophils 73.6 % 42.0-7 8.0 normal Not Available [facility] [address] [place] [address], [address], 01/25/2025 18:35:50 01/26/20 25 01/25/2025 COMPL ETE BLOOD COUNT % lymphocytes 13.2 % 11.0-4 7.0 normal Not Available [facility] [address] [place] [address], [address], 01/25/2025 18:35:50 01/26/20 25 01/25/2025 COMPL ETE BLOOD COUNT % monocytes 9.2 % 0.0-11 .0 normal Not Available [facility] [address] [place] [address], [address], 01/25/2025 18:35:50 01/26/20 25 01/25/2025 COMPL ETE BLOOD COUNT % eosinophils 2.5 % 0.0-7. 0 normal Not Available [facility] [address] [place] [address], [address], 01/25/2025 18:35:50 01/26/20 25 01/25/2025 COMPL ETE BLOOD COUNT % basophils 1.5 % 0.0-3. 0 normal Not Available [facility] [address] [place] [address], [address], 01/25/2025 18:35:50 01/26/20 25 01/25/2025 COMPL ETE BLOOD COUNT nucleated red cells 0.0 % 0.0-0. 9 normal Not Available [facility] [address] [place] [address], [address], 01/25/2025 18:35:50 01/26/20 25 01/25/2025 COMPL ETE BLOOD COUNT nucleated RBCs, absolute 0.00 10*3/ uL not estab. normal Not Available [facility] [address] [place] [address], [address], 01/25/2025 18:35:50 05/31/20 25 05/31/2025 COMPL ETE BLOOD COUNT white blood cells 6.7 10*3/ uL 3.8-10 .8 normal Not Available [facility] [address] [place] [address], [address], 05/31/2025 15:49:42 05/31/20 25 05/31/2025 COMPL ETE BLOOD COUNT red blood cells 3.82 10*6/ uL 3.80-5 .20 normal Not Available [facility] [address] [place] [address], [address], 05/31/2025 15:49:42 05/31/20 25 05/31/2025 COMPL ETE BLOOD COUNT hemoglobin 12.3 g/dL 12.0-1 6.0 normal Not Available [facility] [address] [place] [address], [address], 05/31/2025 15:49:42 05/31/20 25 05/31/2025 COMPL ETE BLOOD COUNT hematocrit 35.9 % 35.0-4 7.0 normal Not Available [facility] [address] [place] [address], [address], 05/31/2025 15:49:42 05/31/20 25 05/31/2025 COMPL ETE BLOOD COUNT MCV 94 fL 80-100 normal Not Available [facility] [address] [place] [address], [address], 05/31/2025 15:49:42 05/31/20 25 05/31/2025 COMPL ETE BLOOD COUNT MCH 32 pg 26-35 normal Not Available [facility] [address] [place] [address], [address], 05/31/2025 15:49:42 05/31/20 25 05/31/2025 COMPL ETE BLOOD COUNT MCHC 34 g/dL 32-36 normal Not Available [facility] [address] [place] [address], [address], 05/31/2025 15:49:42 05/31/20 25 05/31/2025 COMPL ETE BLOOD COUNT RDW 14.7 % 11.0-1 5.0 normal Not Available [facility] [address] [place] [address], [address], 05/31/2025 15:49:42 05/31/20 25 05/31/2025 COMPL ETE BLOOD COUNT MPV 7.6 fL 6.2-10 .5 normal Not Available [facility] [address] [place] [address], [address], 05/31/2025 15:49:42 05/31/20 25 05/31/2025 COMPL ETE BLOOD COUNT platelet count 270 10*3/ uL 150-40 0 normal Not Available [facility] [address] [place] [address], [address], 05/31/2025 15:49:42 05/31/20 25 05/31/2025 COMPL ETE BLOOD COUNT neutrophil,a bsolute 5.8 10*3/ uL 1.6-8. 4 normal Not Available [facility] [address] [place] [address], [address], 05/31/2025 15:49:42 05/31/20 25 05/31/2025 COMPL ETE BLOOD COUNT lymphocyte,a bsolute 0.4 10*3/ uL 0.4-5. 1 normal Not Available [facility] [address] [place] [address], [address], 05/31/2025 15:49:42 05/31/20 25 05/31/2025 COMPL ETE BLOOD COUNT monocyte,abs olute 0.4 10*3/ uL 0.0-1. 2 normal Not Available [facility] [address] [place] [address], [address], 05/31/2025 15:49:42 05/31/20 25 05/31/2025 COMPL ETE BLOOD COUNT eosinophil,a bsolute 0.1 10*3/ uL 0.0-0. 8 normal Not Available [facility] [address] [place] [address], [address], 05/31/2025 15:49:42 05/31/20 25 05/31/2025 COMPL ETE BLOOD COUNT basophil,abs olute 0.0 10*3/ uL 0.0-0. 3 normal Not Available [facility] [address] [place] [address], [address], 05/31/2025 15:49:42 05/31/20 25 05/31/2025 COMPL ETE BLOOD COUNT % neutrophils 86.7 % 42.0-7 8.0 high Not Available [facility] [address] [place] [address], [address], 05/31/2025 15:49:42 05/31/20 25 05/31/2025 COMPL ETE BLOOD COUNT % lymphocytes 6.6 % 11.0-4 7.0 low Not Available [facility] [address] [place] [address], [address], 05/31/2025 15:49:42 05/31/20 25 05/31/2025 COMPL ETE BLOOD COUNT % monocytes 5.4 % 0.0-11 .0 normal Not Available [facility] [address] [place] [address], [address], 05/31/2025 15:49:42 05/31/20 25 05/31/2025 COMPL ETE BLOOD COUNT % eosinophils 0.9 % 0.0-7. 0 normal Not Available [facility] [address] [place] [address], [address], 05/31/2025 15:49:42 05/31/20 25 05/31/2025 COMPL ETE BLOOD COUNT % basophils 0.4 % 0.0-3. 0 normal Not Available [facility] [address] [place] [address], [address], 05/31/2025 15:49:42 05/31/20 25 05/31/2025 COMPL ETE BLOOD COUNT nucleated red cells 0.2 % 0.0-0. 9 normal Not Available [facility] [address] [place] [address], [address], 05/31/2025 15:49:42 05/31/20 25 05/31/2025 COMPL ETE BLOOD COUNT nucleated RBCs, absolute 0.01 10*3/ uL not estab. normal Not Available [facility] [address] [place] [address], [address], 05/31/2025 15:49:42 05/31/20 25 05/31/2025 COMP. METAB OLIC PANEL glucose 89 mg/dL 74-100 normal Not Available [facility] [address] [place] [address], [address], 05/31/2025 17:24:20 05/31/20 25 05/31/2025 COMP. METAB OLIC PANEL blood urea nitrogen 22 mg/dL 6-20 high Not Available [facility] [address] [place] [address], [address], 05/31/2025 17:24:20 05/31/20 25 05/31/2025 COMP. METAB OLIC PANEL creatinine 1.16 mg/dL 0.50-0 .95 high Not Available [facility] [address] [place] [address], [address], 05/31/2025 17:24:20 05/31/20 25 05/31/2025 COMP. METAB OLIC PANEL BUN/creatini ne ratio 19 (calc ) 10-20 normal Not Available [facility] [address] [place] [address], [address], 05/31/2025 17:24:20 05/31/20 25 05/31/2025 COMP. METAB OLIC PANEL sodium 141 mmol/ L 136-14 5 normal Not Available [facility] [address] [place] [address], [address], 05/31/2025 17:24:20 05/31/20 25 05/31/2025 COMP. METAB OLIC PANEL potassium 3.9 mmol/ L 3.4-5. 0 normal Not Available [facility] [address] [place] [address], [address], 05/31/2025 17:24:20 05/31/20 25 05/31/2025 COMP. METAB OLIC PANEL chloride 103 mmol/ L 98-107 normal Not Available [facility] [address] [place] [address], [address], 05/31/2025 17:24:20 05/31/20 25 05/31/2025 COMP. METAB OLIC PANEL carbon dioxide 25 mmol/ L 22-31 normal Not Available [facility] [address] [place] [address], [address], 05/31/2025 17:24:20 05/31/20 25 05/31/2025 COMP. METAB OLIC PANEL anion gap 13 (calc ) 7-25 normal Not Available [facility] [address] [place] [address], [address], 05/31/2025 17:24:20 05/31/20 25 05/31/2025 COMP. METAB OLIC PANEL calcium 8.8 mg/dL 8.6-10 .2 normal Not Available [facility] [address] [place] [address], [address], 05/31/2025 17:24:20 05/31/20 25 05/31/2025 COMP. METAB OLIC PANEL total protein 6.7 g/dL 6.4-8. 3 normal Not Available [facility] [address] [place] [address], [address], 05/31/2025 17:24:20 05/31/20 25 05/31/2025 COMP. METAB OLIC PANEL albumin 4.1 g/dL 3.5-5. 2 normal Not Available [facility] [address] [place] [address], [address], 05/31/2025 17:24:20 05/31/20 25 05/31/2025 COMP. METAB OLIC PANEL globulin 2.6 1.5-4. 5 normal Not Available [facility] [address] [place], [address], 05/31/2025 17:24:20 05/31/20 25 05/31/2025 COMP. METAB OLIC PANEL albumin/glob ulin ratio 1.6 (calc ) 1.1-2. 5 normal Not Available [facility] [address] [place] [address], [address], 05/31/2025 17:24:20 05/31/20 25 05/31/2025 COMP. METAB OLIC PANEL bilirubin, total 0.3 mg/dL 0.1-1. 0 normal NOTE: New refer ence range . Not Available [facility] [address] [place] [address], [address], 05/31/2025 17:24:20 05/31/20 25 05/31/2025 COMP. METAB OLIC PANEL alkaline phosphatase 57 U/L 30-121 normal Not Available [facility] [address] [place], [address], 05/31/2025 17:24:20 05/31/20 25 05/31/2025 COMP. METAB OLIC PANEL AST 19 U/L 0-32 normal Not Available [facility] [address] [place] [address], [address], 05/31/2025 17:24:20 05/31/20 25 05/31/2025 COMP. METAB OLIC PANEL ALT 10 U/L 0-33 normal Not Available [facility] [address] [place], [address], 05/31/2025 17:24:20 05/31/20 25 05/31/2025 COMP. METAB OLIC PANEL eGFR 46 >= 60 abnormal NOT E New calcu latio n for GFR (CKD- EPI 2020) is formu lated witho ut race adjus tment facto rs at the recom menda tion of the [employer] ation and Ameri can Socie ty of Nephr ology . This calcu latio n has not been valid ated in pregn ant women . For marcello parrae nts refer to https ://andrew strong.o rg/pr ofess ional s/KDO QI/gf r_cal culat orPed Not Available [facility] [address] [place] [address], [address], 05/31/2025 17:24:20 05/31/20 25 05/31/2025 IRON PANEL -TOTA L AND TIBC iron 117 ug/dL 37-145 normal Not Available [facility] [address] [place] [address], [address], 05/31/2025 17:24:22 05/31/20 25 05/31/2025 IRON PANEL -TOTA L AND TIBC total iron binding cap. 404 ug/dL _(kyree c) 250-45 0 normal Not Available [facility] [address] [place] [address], [address], 05/31/2025 17:24:22 05/31/20 25 05/31/2025 IRON PANEL -TOTA L AND TIBC unsat.iron binding cap. 287 ug/dL 112-34 7 normal Not Available [facility] [address] [place] [address], [address], 05/31/2025 17:24:22 05/31/20 25 05/31/2025 IRON PANEL -TOTA L AND TIBC % saturation 29 %_(ca lc) 15-50 normal Not Available [facility] [address] [place] [address], [address], 05/31/2025 17:24:22 05/31/20 25 05/31/2025 JUANA TIN ferritin 131 NG/mL 13-157 normal Not Available [facility] [address] [place] [address], [address], 05/31/2025 17:24:23 05/18/20 24 05/18/2024 optic al coher ence tomog jackelyn, retin a No observ ation record ed. [email or web address] Not Available 2023 14:02:19 05/31/20 optic al coher ence tomog jackelyn, retin a No observ ation record ed. [email or web address] Not Available 05/31 13:05:35 05/31/20 25 05/31/2025 optic al coher ence tomog jackelyn, retin a No observ ation record ed. [email or web address] Not Available 2024 13:21:21 Result Notes None recorded. Problems Name Problem SNOMED Code Status Onset Date Resolution Date Notes Provider Name and Address Organization Details Recorded Time Crohn's disease of small intestine 74369641 Active 2014 From Automated Load;Provi cisco: Alie Vasquez;St atus: Active Not Available [facility] 6 03:17:43 Neoplasm of uncertain behavior of skin 75871002 Active 2014 From Automated Load;Provi cisco: Nilton Antunez;Sta tus: Active Not Available [facility] 6 03:17:43 Inflamed seborrhei c keratosis 010157397 Active 2014 From Automated Load;Provi cisco: Nilton Antunez;Sta tus: Active Not Available [facility] 6 03:17:44 Senile hyperkera tosis 834305652 Active 2015 From Automated Load;Provi cisco: Nilton Antunez;Sta tus: Active Not Available [facility] 6 03:17:44 Presbyopi a 83719656 Active 2015 From Automated Load;Provi cisco: Stewart Ball;Stat us: Active STEWRAT BALL MD [address] [place] [address], [address] , [facility] 3 15:07:09 Excess skin of eyelid 463652726 Active 2016 STEWART BALL MD [address] [place] [address], [address] , [facility] 3 15:07:08 Combined form of senile cataract 52598547 Active 2016 STEWART BALL MD [facility] [place], [address] , [facility] 3 15:07:08 Nonexudat sadiq age-relat ed macular degenerat ion 605605714 Active 2016 STEWART BALL MD [address] [place] [address], [address] , [facility] 3 15:07:08 Hypermetr opia 35928429 Active 2016 STEWART BALL MD [address] [place] [address], [address] , [facility] 3 15:07:09 Regular astigmati sm 97945290 Active 2016 STEWART BALL MD [address] [place] [address], [address] , [facility] 3 15:07:09 Retinosch kimberlee 78465172 Active 2022 STEWART BALL MD [address] [place] [address], [address] , [facility] 3 13:04:42 Problem Notes None recorded. Procedures Surgical History Date Name Laterality Status Provider Name and Address Organization Details Recorded Time 05/31/20 25 OCT/Retina completed STEWART BALL MD [address] [place] [address] [place], [address], [facility] 05/31/2025 11:29:35 05/18/20 24 OCT/Retina completed STEWART BALL MD [address] [place] [address] [place], [address], [facility] 05/18/2024 14:02:51 05/09/20 23 OCT/Retina completed STEWART BALL MD [address] [place] [address] [place], [address], [facility] 05/09/2023 15:06:01 05/03/20 22 OCT/Retina completed STEWART BALL MD [address] [place] [address], [address], [facility] 05/03/2022 16:28:16 08/22/19 22 Destruction Premalignant Lesion(s) completed NILTON ANTUNEZ MD [address] [place] [address], [address], [facility] 08/22/2021 16:52:42 08/22/19 22 Destruction BN Lesions completed Meryl Cota [facility] 08/22/2021 15:57:56 08/08/19 21 OCT/Retina completed STEWART BALL MD [address] [place] [address], [address], [facility] 08/08/2020 17:09:48 05/13/20 20 DXA Low Bone Mass 2 - Tx completed CODEY YATES MD [address] [place] [address], [address], [facility] 05/13/2020 16:04:39 02/27/20 19 OCT/Retina completed STEWART BALL MD [address] [place] [address], [address], [facility] 02/26/2019 15:43:22 02/27/20 19 Refraction completed STEWART BALL MD [address] [place] [address], [address], [facility] 02/26/2019 15:42:39 11/25/19 19 Endoscopy Nasal; Diagnostic completed NINA STONE MD [address] [place] [address], [address], [facility] 11/24/2018 16:34:59 03/19/20 18 OCT/Retina completed Monique Ram [facility] 03/19/2018 10:35:33 07/01/20 17 Refraction completed STEWART BALL MD [address] [place] [address], [address], [facility] 07/01/2017 16:08:10 06/21/20 17 DXA Low Bone Mass 2 - Tx completed CODEY YATES MD [address] [place] [address], [address], [facility] 06/21/2017 16:40:17 09/10/19 17 Destruction BN Lesions completed Meryl Cota [facility] 09/10/2016 14:27:58 09/10/19 17 Shave Lesion; scalp, neck, hand, foot, genitalia completed NILTON ANTUNEZ MD [address] [place], [address], [facility] 09/13/2016 18:12:00 Appendectomy completed [facility] 06/27/2016 15:48:58 Incision of gallbladder completed [facility] 06/27/2016 15:49:12 Other completed [facility] 06/27/2016 15:49:50 Imaging Results None recorded. Procedure Notes None recorded. Medical Equipment None Reported. Allergies Allergen ID Allergen Name Allergen Category Reaction Reaction Severity Criticality Documentation Date Start Date Code Code System Note Provider Name and Address Organization Details Recorded Time 802226 tetracycl ine hydrochlo ride medicatio n rash Not available Not available 06/07/20162005 01469 6 RxNorm React ion: RASH; Comme nt: itchi ng;Cr eated By: Navi EdwardCrea lopez Date: 06/03 12:07 :13 PM; Not Available [facility] 6 11:16:06 [id number] E-Mycin medicatio n other Not available Not available 06/07/20162005 27572 8 RxNorm React ion: OTHER ; Comme nt: felt faint ;Crea lopez By: Navi EdwardCrea lopez Date: 06/03 12:08 :16 PM; Not Available [facility] 6 11:16:06 173887 Product containin g penicilli n (product) medicatio n other moderate Not available 06/07/20162005 94957 8001 SNOMED React ion: OTHER ;Ana rity: Moder ate; Comme nt: felt faint ,;Cre ated By: Navi Germain ;Crea lopez Date: 06/03 12:02 :37 PM; Not Available [facility] 6 11:16:06 650540 corticotr opin medicatio n other Not available Not available 06/07/20162005 376 RxNorm React ion: OTHER ; Comme nt: flush ed;Cr eated By: Navi Germain ;Crea lopez Date: 06/03 12:09 :34 PM; Not Available [facility] 6 11:16:06 999752 Celestone medicatio n other Not available Not available 06/07/20162005 70777 9 RxNorm React ion: OTHER ; Comme nt: felt flush ed had with rut s;Cre ated By: Navi Germain ;Crea lopez Date: 06/03 12:12 :25 PM; Not Available [facility] 6 14:09:41 323583 streptomy kathy sulfate medicatio n other Not available Not available 06/07/20162005 46384 RxNorm React ion: OTHER ;Ana rity: Unkno wn; Comme nt: felt flush ed;Cr eated By: Navi Germain ;Crea lopez Date: 06/03 12:05 :45 PM; Not Available [facility] 6 14:09:41 615376 atropine / chlorphen iramine / hyoscyami ne / pseudoeph edrine / scopolami ne medicatio n other Not available Not available 06/07/20162005 27957 67 RxNorm React ion: OTHER ; Comme nt: felt flush ed had toget her with nicolás tone; Creat ed By: Navi Germain ;Crea lopez Date: 06/03 12:11 :27 PM; Not Available [facility] 6 14:09:41 097885 Dexferrum medicatio n respirato ry distress severe Not available 06/07/20162005 53382 5 RxNorm React ion: SHORT NESS OF BREAT H;Sev erity : Sever e; Comme nt: flush ed, felt faint ;Crea lopez By: Navi Germain ;Crea lopez Date: 06/03 11:59 :50 AM; Not Available [facility] 6 14:24:12 455850 clonidine medicatio n hallucina tions Not available Not available 08/08/2020 2599 RxNorm Junaid Caden hamlin [facility] 1 16:12:00 [id number] sulfameth oxazole / trimethop rim medicatio n Not available Not available Not available 05/31/2025 95928 RxNorm Not Available [facility] 5 06:51:09 219974 nebivolol medicatio n Not available Not available Not available 05/31/2025 98460 RxNorm Not Available [facility] 5 06:51:09 099383 cefuroxim e Not available Not available Not available Not available 05/31/2025 2194 RxNorm Not Available [facility] 5 06:51:09 232355 betametha sone / betametha sone acetate medicatio n Not available Not available Not available 05/31/2025 90232 39 RxNorm Not Available [facility] 5 06:51:09 616547 erythromy kathy medicatio n Not available Not available Not available 05/31/2025 4053 RxNorm Not Available [facility] 5 06:51:09 031662 clindamyc in Not available Not available Not available Not available 05/31/2025 2582 RxNorm Not Available [facility] 5 06:51:09 819684 streptomy kathy medicatio n Not available Not available Not available 05/31/2025 10421 RxNorm Not Available [facility] 5 06:51:09 052737 tetracycl ine medicatio n Not available Not available Not available 05/31/2025 56293 RxNorm Not Available [facility] 5 06:51:09 Medications Name Sig Start Date [...] Organization Details Last Updated DateTime 160.02 cm 21.6 kg/m2 03541.2 7 g 75 /min 16 /min 159/89 mm[Hg] Sherry Vigil [facility] 5 13:08:55 Date Recorded Body height Provider Name an d Address Organization Details Last Updated DateTime 05/18/2024 160.02 cm Pita Vegas [facility] 13:31:32 Date Recorded Body height Provider Name an d Address Organization Details Last Updated DateTime 05/31/2025 160.02 cm Abdelrahman Dolores [facility] 05/31/2025 10:56:17 Social History Question Answer Notes LastModified by Organizat ion Details LastModified Time Tobacco Smoking Status [facility] 15:48:49 What Was The Date Of [...] high-dose, trivalent, PF 7 completed Not Available [facility] 05/31/2025 10:36:58 Influenza, high-dose, trivalent, PF 8 completed Not Available [facility] 05/31/2025 10:36:58 pneumococcal polysaccharide PPV23 8 completed Not Available [facility] 05/31/2025 10:36:58 Influenza, high-dose, trivalent, PF 9 completed Not Available [facility] 05/31/2025 10:36:58 Influenza, high-dose, trivalent, PF 0 completed Not Available [facility] 05/31/[facility]25 10:36:58 COVID-19, mRNA, LNP-S, PF, 100 mcg/0.5mL dose or 50 mcg/0.25mL dose 1 completed Not Available [facility] 05/31/[facility] 10:36:58 COVID-19, mRNA, LNP-S, PF, 100 mcg/0.5mL dose or 50 mcg/0.25mL dose 1 completed Not Available [facility] 05/31/2025 10:36:58 Influenza, high-dose, quadrivalent, PF 1 completed Not Available [facility] 05/31/2025 10:36:58 COVID-19, mRNA, LNP-S, PF, 100 mcg/0.5mL dose or 50 mcg/0.25mL dose 1 completed Not Available [facility] 05/31/2025 10:36:58 COVID-19, mRNA, LNP-S, PF, 100 mcg/0.5mL dose or 50 mcg/0.25mL dose 2 completed Not Available [facility] 05/31/[facility]25 10:36:58 COVID-19, mRNA, LNP-S, bivalent, PF, 50 mcg/0.5 mL or 25mcg/0.25 mL dose 2 completed Not Available [facility] 05/31/2025 10:36:58 Pneumococcal conjugate PCV20, polysaccharide IUG139 conjugate, adjuvant, PF 3 completed Not Available [facility] 05/31/2025 10:36:58 COVID-19, mRNA, LNP-S, PF, 50 mcg/0.5 mL 3 completed Not Available [facility] 05/31/2025 10:36:58 RSV, recombinant, protein subunit RSVpreF, adjuvant reconstituted, 0.5 mL, PF 3 completed Not Available [facility] 05/31/2025 10:36:58 COVID-19, mRNA, LNP-S, PF, jenny-sucrose, 30 mcg/0.3 mL 4 completed Not Available [facility] 05/31/2025 10:36:58 RSV, bivalent, protein subunit RSVpreF, diluent reconstituted, 0.5 mL, PF 4 completed Not Available [facility] 05/31/2025 10:36:58 Past Encounters Encounter ID Performer Location Encounter Start Date Encounter Closed Date Diagnosis/Indication Diagnosis SNOMED-CT Code Diagnosis ICD10 Code Diagnosis IMO Codes Diagnosis Note [id number] ALIE VASQUEZ MD GASTRO [address] [facility], [address] [place] [address] 06/27/2016 14:50:27 06/29/2016 09:08:29 Crohn's disease of small intestine 05882377 K50.00 She has been doing well. Recent [...] metabolite s today. Follow-up in 1 year. [id number] NILTON ANTUNEZ MD DERMATOLO GY EAST [address] [place] [address] 09/10/2016 14:03:36 09/14/2016 10:41:16 Senile hyperkeratosis 353482098 L82.1 Education: We discussed the potential diagnostic options, options for further evaluation and treatments , and the risks and benefits of each. Inflamed s eborrheic keratosis 633162773 L82.0 LN x 8 Neoplasm o f uncertain behavior of skin 83775863 D48.5 ?ISKRight dorsal foot Shave removal and base destroyed with ED Lentigo 075418356 L81.4 Reassuranc e and education regarding the disorder and options. [id number] CODEY YATES MD BONE DENSITY [address] [place] [address] 06/21/2017 14:46:22 06/21/2017 15:54:07 [id number] STEWART BALL MD OPHTHALMO LOGY [address] [place] [address] 07/01/2017 15:02:48 07/03/2017 08:42:06 Combined form of senile cataract 27782392 H25.813 Nonexudati ve age-related macular degeneration 702932518 H35.3132 Hypermetropia 18910825 H 52.03 Excess skin of eyelid 24 6116815 H02.831 H02.834 Regular astigmatism 6890 5002 H52.223 Presbyopia 63417818 H52. 4 [id number] ALIE VASQUEZ MD GASTRO SB [address] [facility], [address] [place] [address] 07/11/2017 13:41:14 07/12/2017 08:31:16 Crohn's disease of small intestine 31163554 K50.00 Doing well. Continue Imuran. Check CBC, CMP, b12 and Imuran metabolite s today. Follow-up in 1 year. [id number] STEWART BALL MD OPHTHALMO LOGY [address] [place] [address] 5 12/12/2017 09:13:21 12/12/2017 12:18:38 Pain in eye 48814920 H57.12 Combined f orm of senile cataract 04535535 H25.813 Excess skin of eyelid 24 9334825 H02.831 H02.462 [id number] STEWART BALL MD OPHTHALMO LOGY [address] [place],[address] [place] [address] 5 03/19/2018 09:35:46 03/19/2018 13:36:51 Pain in eye 70251755 H57.12 Combined f orm of senile cataract 60766068 H25.813 Excess skin of eyelid 24 8764313 H02.831 H02.834 Nonexudati ve age-related macular degeneration 558752872 H35.3132 Hypermetropia 23620192 H 52.03 Regular astigmatism 6890 5002 H52.223 Presbyopia 49341157 H52. 4 [id number] STEWART BALL MD OPHTHALMO LOGY [address] [place] [address] 5 03/28/2018 15:34:23 03/31/2018 13:21:09 Acute iritis 29950576 H20.012 ?subacute Combined f orm of senile cataract 29023928 H25.813 Excess skin of eyelid 24 7440827 H02.831 H02.170 [id number] ALIE VASQUEZ MD GASTRO [address] [place] [address] 1 07/16/2018 14:41:23 07/17/2018 07:42:34 Crohn's disease of small intestine 36818139 K50.00 Doing well. Continue Imuran. Check CBC, CMP, b12 and Imuran metabolite s today. And again in 6 months Follow-up in 1 year. [id number] NINA STONE MD ENT SB [address] [place] [address] 11/24/2018 14:20:00 11/25/2018 07:50:06 Chronic maxillary sinusitis 00787131 J32.0 symptoms consistent with left-sided facial pressure go along with the CT that I reviewed today which shows mucosal thickening in the left maxillary sinus consistent with chronic sinusitis. Omnicef for 3 weeks.foll ow-up one month [id number] NINA STONE MD ENT SB [address] [place] [address] 12/23/2018 12:48:30 12/23/2018 13:37:25 Chronic maxillary sinusitis 55289808 J32.0 resolved with 3 weeks of Omnicef. Current symptoms of drainage seen to be secondary to allergic rhinitis. Begin Flonase. Follow up as needed Allergic r hinitis caused by pollen 44038570 J30.1 [id number] STEWART BALL MD OPHTHALMO LOGY [address] ,[address] [address] 02/26/2019 13:43:02 02/26/2019 16:32:05 Nonexudative age-related macular degeneration 478366128 H35.3132 Combined f orm of senile cataract 72099394 H25.813 Excess skin of eyelid 24 2943358 H02.831 H02.834 Hypermetropia 56185724 H 52.03 Regular astigmatism 6890 5002 H52.223 Presbyopia 47380542 H52. 4 [id number] ALIE VASQUEZ MD GASTRO SB [address] [facility], [address] [place] [address] 07/29/2019 14:32:33 07/29/2019 15:38:03 Crohn's disease of small intestine 58629520 K50.00 Continue Imuran. Check CBC, CMP, CRP, B12. Eating more ice. Check of hemoglobin . If creatinine abnormal consider nephrology consult. RTC 1 year. Pica 32230546 F50.89 ice Serum crea tinine outside reference range 999721559 R79.89 [id number] CHANEL KAMARA MD HEM/ONC SB CLOSED [address] [place] [address] 08/05/2019 14:39:21 08/05/2019 16:14:44 [id number] CHANEL KAMARA MD HEM/ONC SB CLOSED [address] [place] [address] 08/12/2019 13:40:28 08/21/2019 03:47:31 [id number] CHANEL KAMARA MD HEM/ONC SB CLOSED [address] [place] [address] 08/19/2019 13:28:28 08/27/2019 03:47:40 [id number] ALIE VASQUEZ MD SURGERY SCHEDULE [address] [place] [address] 09/10/2019 10:13:28 09/10/2019 10:14:47 [id number] ALIE VASQUEZ MD GASTRO SB [address] [facility], [address] [place] [address] 12/10/2019 13:31:22 12/11/2019 07:20:46 Crohn's disease of small intestine 41646902 K50.00 Continue Imuran. weight stable now. rtc 6 months. Iron defic iency anemia 67110307 D50.9 K50.90 R63.4 check cbc, cmp, tmpt, iron tibc ferritin Incisional hernia 772273 000 K43.2 not bothering her - - consider surgery consult if symptoms return. [id number] CHANEL KAMARA MD HEM/ONC SB CLOSED [address] [place] [address] 12/24/2019 13:15:18 12/24/2019 14:07:18 [id number] JESSE SIEGEL MD HEM/ONC SB CLOSED [address] [place] [address] 12/29/2019 11:23:09 12/29/2019 13:23:02 [id number] JESSE SIEGEL MD HEM/ONC SB CLOSED [address] [place] [address] 01/04/2020 11:58:23 01/04/2020 13:39:07 [id number] CHANEL KAMARA MD HEM/ONC SB CLOSED [address] [place] [address] 03/25/2020 12:45:35 03/25/2020 13:16:16 [id number] CODEY YATES MD BONE DENSITY SB [address] [place] [address] 05/13/2020 12:33:23 05/13/2020 13:15:32 Osteoporosis 65913732 M81.0 [id number] STEWART BALL MD OPHTHALMO LOGY [address] [place] [address] 08/08/2020 14:34:14 08/08/2020 17:35:05 Nonexudative age-related macular degeneration 699237355 H35.3132 Combined f orm of senile cataract 88085670 H25.813 Excess skin of eyelid 24 7619256 H02.831 H02.834 Hypermetropia 24882719 H 52.03 Regular astigmatism 6890 5002 H52.223 Presbyopia 35162330 H52. 4 [id number] CHANEL KAMARA MD HEM/ONC SB CL[address] [place] [address] 09/30/2020 14:59:08 10/12/2020 10:25:34 [id number] ALIE VASQUEZ MD GASTRO SB [address] [facility], [address] [place] [address] 01/10/2021 15:10:41 01/12/2021 08:42:03 Crohn's disease of small intestine 99154109 K50.00 . Cont imuran Iron defic iency anemia 36061655 D50.9 K50.90 R63.4 Incisional hernia 556169 000 K43.2 . Loose stool 115584661 R1 9.5 Long-term drug therapy 638640853 Z79.121 [id number] STEWART BALL MD OPHTHALMO LOGY [address] [place],[address] [place] [address] 02/06/2021 14:32:30 02/06/2021 15:46:24 Combined form of senile cataract 00842110 H25.813 Nonexudati ve age-related macular degeneration 760596329 H35.3132 Excess skin of eyelid 24 3698899 H02.831 H02.834 Hypermetropia 12085679 H 52.03 Regular astigmatism 6890 5002 H52.223 Presbyopia 92868350 H52. 4 [id number] NILTON ANTUNEZ MD DERMATOLO GY [facility] [address] [place] [address] 08/22/2021 15:09:03 08/22/2021 16:07:39 Inflamed seborrheic keratosis 622616584 L82.0 LN x 22 Lentigo 072262993 L81.4 Reassuranc eRecommend ed Equate Ultra Sunscreen 30+ and sun protecting hats/cloth ing Raised nahomi orrheic keratosis 7778264777 92805 L82.1 reassuranc e Actinic keratosis 449[address] x 1 [id number] CHANEL KAMARA MD HEM/ONC SB CLOSED [address] 1 11/09/2021 14:35:43 11/09/2021 15:16:16 [id number] CHANEL KAMARA MD HEM/ONC SB CLOSED [address] [place] [address] 11/15/2021 12:51:39 11/15/2021 15:12:00 [id number] CHANEL KAMARA MD HEM/ONC SB CLOSED [address] [facility] [address] [place] [address] 11/22/2021 12:50:30 11/22/2021 15:05:56 [id number] ALIE VASQUEZ MD GASTRO SB [address] [facility], [address] [place] [address] 1 01/03/2022 14:36:08 01/04/2022 07:41:04 Crohn's disease of small intestine 57588830 K50.00 Cont imuran Iron defic iency anemia 95151973 D50.9 K50.90 R63.4 Incisional hernia 500620 000 K43.2 . Long-term drug therapy 144976643 Z79.899 Diarrhea 99935237 R19.7 [id number] ALIE VASQUEZ MD SURGERY SCHEDULE [address] [place] [address] 01/16/2022 13:48:55 01/16/2022 13:52:34 [id number] CHANEL KAMARA MD HEM/ONC SB CLOSED [address] [place] [address] 1 02/08/2022 14:52:07 02/08/2022 15:27:49 [id number] STEWART BALL MD OPHTHALMO LOGY [address] [place],[address] [place] [address] 05/03/2022 14:44:26 05/03/2022 16:39:58 Nonexudative age-related macular degeneration 498832879 H35.3132 Combined f orm of senile cataract 46942898 H25.813 Excess skin of eyelid 24 6494752 H02.831 H02.834 Hypermetropia 48565306 H 52.03 Regular astigmatism 6890 5002 H52.223 Presbyopia 93671623 H52. 4 [id number] ALIE VASQUEZ MD GASTRO SB [address] [facility], [address] [place] [address] 07/19/2022 14:16:26 07/20/2022 10:07:06 Crohn's disease of small intestine 49318054 K50.00 Cont imuran Iron defic iency anemia 23927977 D50.9 K50.90 R63.4 Cbc iron Incisional hernia 453397 000 K43.2 . Long-term drug therapy 565022344 Z79.899 Diarrhea 00398814 R19.7 [id number] CHANEL KAMARA MD HEM/ONC SB CLOSED [address] 1 11/08/2022 14:01:47 11/08/2022 15:17:03 [id number] ELEAZAR BABB MD HEM/ONC SB CLOSED [address] [place] [address] 11/12/2022 13:45:32 11/12/2022 16:18:08 [id number] CHANEL KAMARA MD HEM/ONC SB CLOSED [address] [place] [address] 11/19/2022 13:45:57 11/19/2022 15:43:36 [id number] STEWART BALL MD OPHTHALMO LOGY [address] [place] [address] 05/09/2023 13:45:48 05/09/2023 15:17:18 Nonexudative age-related macular degeneration 646888997 H35.3132 Combined f orm of senile cataract 56809991 H25.813 Excess skin of eyelid 24 3351634 H02.831 H02.834 Hypermetropia 69253287 H 52.03 Regular astigmatism 6890 5002 H52.223 Presbyopia 83546859 H52. 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 H 33.102 Combined f orm of senile cataract 62632830 H25.813 [id number] ALIE VASQUEZ MD GASTRO SB [address] [facility] [address] [place] [address] 07/18/2023 14:14:16 07/18/2023 15:07:16 Crohn's disease of small intestine 30190801 K50.00 Cont imuran Iron defic iency anemia 75853255 D50.9 K50.90 R63.4 check labs -- check q 3 mos for next yearrtc 1 yr Long-term drug therapy 692336318 Z79.899 [id number] STEWART BALL MD OPHTHALMO LOGY [address] [place] [address] 5 09/05/2023 13:15:33 09/05/2023 14:42:54 Subretinal hemorrhage 42302591 H35.62 appears to have resorbed Retinoschisis 07059448 H 33.102 [id number] STEWART BALL MD OPHTHALMO LOGY [address] [place] [address] 11/08/2023 14:12:55 11/08/2023 15:46:28 Subretinal hemorrhage 34909381 H35.62 appears to have resorbed Nonexudati ve age-related macular degeneration 280693552 H35.3132 Combined f orm of senile cataract 35128404 H25.813 Retinoschisis 72373646 H 33.102 Excess skin of eyelid 24 7117803 H02.831 H02.834 [id number] STEWART BALL MD OPHTHALMO LOGY EAST [address] [facility] ,[address] [place] [address] 05/18/2024 13:27:58 05/18/2024 14:17:25 Nonexudative age-related macular degeneration 810681053 H35.3132 stable Retinoschisis 66811633 H 33.102 Combined f orm of senile cataract 66957268 H25.813 slow progressio n Excess skin of eyelid 24 5779071 H02.831 H02.834 Hypermetropia 96030014 H 52.03 Regular astigmatism 6890 5002 H52.223 Presbyopia 80017242 H52. 4 [id number] ALIE VASQUEZ MD GASTRO SB [address] [facility], [address] [place] [address] 09/09/2024 12:57:54 09/10/2024 08:34:59 Crohn's disease of small intestine 82423271 K50.00 The patient continues on a maintenanc [...] imuran dong well Iron defic iency anemia 10899409 D50.9 The patient's anemia is managed currently . The patient was advised that magnesium at low doses is generally safe, though it might increase diarrhea, which she should monitor closely. Further consultati on may be needed if this poses significan t issues or does not improve. stable over past year hb 11 Long-term drug therapy 749555215 Z79.899 Continuati on of current medication regimen with azathiopri ne for long-term management of Crohn s disease. Prescripti ons and refills have been adjusted according to stability and patient needs. Future adjustment s may be necessary depending on disease progressio n and patient response. Diarrhea 29716452 R19.7 Current therapy involves management with generic [...] imodium prn 3x day only in am [id number] ALIE VASQUEZ MD GASTRO SB [address] [place] [address], [place] [address] 03/24/2025 08:40:31 03/25/2025 11:43:26 Acute diarrhea 477752149 R19.7 69163 worsened after magnesium iv infusions -- noted when there for back painweight loss now only about 2 x a day- Monitor symptoms and dietary intake. - Follow-up in two weeks to reassess condition. Enteritis of small intestine 85144128 K52.9 08250 - Monitor for symptom progressio n or improvemen t. Crohn's di sease of small intestine 82160628 K50.00 3242535 - Consider more testing or steroid treatment if symptoms persist.- Follow-up in two weeks to evaluate symptom status. Iron defic iency anemia 23220852 D50.9 81558776 [id number] ALIE VASQUEZ MD GASTRO SB [address] [place] [address], [place] [address] 04/07/2025 11:05:48 04/08/2025 08:34:36 Acute diarrhea 666337404 R19.7 72799 not going away -- may be secondary to crohns - Start budesonide for symptom management . - Reassess in one month. Enteritis of small intestine 89246323 K52.9 [id number] Crohn's di sease of small intestine 62382090 K50.00 5032903 - Prescribe budesonide for inflammati on.- Follow-up in one month. Iron defic iency anemia 01019176 D50.9 03802214 [id number] STEWART BALL MD OPHTHALMO LOGY EAST [address] [place] [address],[address] [place] [address] 05/31/2025 10:35:05 05/31/2025 11:58:23 Nonexudative age-related macular degeneration 084460278 H35.3132 stable Retinoschisis 16146261 H 33.102 Combined f orm of senile cataract 23860082 H25.813 slow progressio n Excess skin of eyelid 24 5798002 H02.831 H02.834 Hypermetropia 69707478 H 52.03 Regular astigmatism 6890 5002 H52.223 Presbyopia 80284165 H52. 4 Health Concerns Section Related Observation LastModified by Organization Detai ls LastModified Time None Recorded Concern Status LastModified by Organization Details LastModified Time None Recorded Advance Directives Directive None Recorded Payers Insurance Date Sequence Insurance Name Policy Number Policy Gupta Covered Member ID Gupta Member ID Guarantor Name 05/28/2025 1 [place] Alejandra Ramos [id number] Alejandra Ramos 06/04/2025 2 AARP (MEDICARE SUPPLEMENT) Alejandra Ramos [id number] Alejandra Ramos 10/14/2019 2 UNSPECIFIED REMIT PAYOR Alejandra Ramos 09/09/2024 2 [employer] (MEDICARE SUPPLEMENT) Alejandra Ramos [id number] Alejandra Ramos Notes Date Note Type Note Provider Name and Address Organization Details Recorded Time 05/18/2024 text/html ROS as noted in the HPI STEWART BALL MD [address] [place] [address], [id number], [facility] 05/18/2024 14:13:47 09/09/2024 text/html The patient is an 83-year-old female presenting with Crohn's disease management and ongoing diarrhea. She was previously diagnosed with Crohn's disease affecting her small intestine. The patient reports experiencing chronic diarrhea, primarily occurring in the morning with approximately three bowel movements, and this pattern has been persistent. Currently, she manages diarrhea with [id number] [facility]'s generic version of Imodium, which has [...] of her health management. ALIE VASQUEZ MD [address] [place] [address] [place], [address], [facility] 09/28/2024 21:51:51 03/24/2025 text/html Visit today is being conducted via telehealth using both audio/video. The patient confirms that he/she is physically located in [place] at the time of this visit. Patient [...] order to provide the best possible care. went to the er 2 weeks agoback pain/low k and maggot diarrhea thenct scan showed changes of enteritis- The patient is an 84-year-old female presenting with acute diarrhea. - Diarrhea followed potassium and magnesium infusions. - History of Crohn's disease for 50 years, last flare-up 25 years ago. - Diarrhea improved to once daily, gel-like consistency. - Weight loss and decreased appetite, using nutritional supplements. - Hospitalized for back pain, T2 compression fracture identified. - History of low hemoglobin, IV iron in January. Documentation on this patient encounter was supported using voice-enabled Al technology. The patient consented to recording for the purpose of documenting the encounter. Provider reviewed content of the generated note prior to signature. ALIE VASQUEZ MD [facility] [place], [address], [facility] 03/25/2025 12:57:55 04/07/2025 text/html Visit today is being conducted via telehealth using both audio/video. The patient confirms that he/she is physically located in [place] at the time of this visit. Patient [...] note prior to signature. ALIE VASQUEZ MD [facility] [place], [address], [facility] 04/13/2025 12:27:25 05/31/2025 text/html ROS as noted in the HPI STEWART BALL MD [address] [place], [address], [facility] 05/31/2025 11:35:31 OBGyn Episode No OBEpisode recorded.
[2025-07-02 17:11] LABS: INR 0.98 (0.9-1.1); Prothrombin Time 10.9 seconds (10.1-12.5)
[2025-07-02 17:14] LABS: Alanine Aminotransferase 25 U/L (12-78); Albumin Level 4.7 g/dl (3.5-5.0); Albumin/Globulin Ratio 1.6 (1.1-1.8); Alkaline Phosphatase 66 U/L (38-126); Anion Gap 13.3 mEq/L (5-15); Aspartate Amino Transferase 42 U/L (14-36); Bilirubin,Total 0.5 mg/dl (0.2-1.3); Blood Urea Nitrogen 32 mg/dl (7-17); Calcium 8.9 mg/dl (8.4-10.2); Carbon Dioxide 25 mmol/L (22.0-30.0); Chloride 105 mmol/L (98-107); Creatinine Clearance Estimated 25 mL/min (50-200); Creatinine,Serum 1.40 mg/dl (0.52-1.04); Estimated Glomerular Filt Rate 36 ml/min (>60); GFR (African American) 43 ML/MIN (>60); Globulin 3.0 g/dL (1.3-3.2); Glucose 103 mg/dl (74-100); Potassium 4.3 mmoL/L (3.5-5.1); Sodium 139 mmol/L (136-145); Total Protein,Serum 7.7 g/dl (6.3-8.2)
[2025-07-02 17:23] LABS: D-Dimer 5.84 ug/mL (0.0-0.5)
[2025-07-02 17:31] VITALS: BP 187/155; RESP 21
[2025-07-02 17:38] LABS: Magnesium 1.0 mg/dl (1.6-2.3); Troponin I < 0.01 ng/ml (0.00-0.034)
[2025-07-02 17:40] LABS: Microscopic, Urine URINE MICROSCOPIC (MICROSCOPIC)
[2025-07-02 17:43] LABS: Bilirubin,Urine Negative (Negative); Color,Urine YELLOW (Yellow); Glucose,Urine (UA) Negative (Negative); Ketones,Urine Negative (Negative); Leukocyte Esterase,Urine Negative (Negative); PH,Urine 7.0 (5.0-8.5); Protein,Urine 2+ (Negative); Specific Gravity, Urine 1.015 (1.005-1.030); Urobilinogen,Urine 0.2 EU/dl (0.2)
--- NOTE | 2025-07-02 17:43 | CT_ITS ---
PROCEDURE INFORMATION: Exam: CTA Chest With Contrast Exam date and time: 07/02/2025 5:54 PM Age: 84 years old Clinical indication: Abnormal findings; Abnormal diagnostic tests; Elevated d-dimer; Shortness of breath; Additional info: Elevated d dimer TECHNIQUE: Imaging protocol: Computed tomographic angiography of the chest with contrast. Exam focused on the arteries. 3D rendering (Not supervised by radiologist): MIP and/or 3D reconstructed images were created by the technologist. Radiation optimization: All CT scans at this facility use at least one of these dose optimization techniques: automated exposure control; mA and/or kV adjustment per patient size (includes targeted exams where dose is matched to clinical indication); or iterative reconstruction. Contrast material: ISOVUE; Contrast volume: 80 ml; Contrast route: INTRAVENOUS (IV); COMPARISON: CR XR CHEST PORTABLE 03/05/2025 4:29 PM FINDINGS: Pulmonary arteries: Normal. No pulmonary emboli. Aorta: Unremarkable. No aortic aneurysm. No aortic dissection. Lungs: Unremarkable. No consolidation. No masses. Pleural spaces: Unremarkable. No pneumothorax. No pleural effusion. Heart: Unremarkable. No cardiomegaly. No pericardial effusion. Lymph nodes: Unremarkable. No enlarged lymph nodes. Bones/joints: Unremarkable. No acute fracture. Soft tissues: Unremarkable. IMPRESSION: No acute findings.
[2025-07-02] MEDS: 0.9 % SODIUM CHLORIDE 50 ML VIAL IV (18:00)
[2025-07-02] MEDS: IOPAMIDOL-370 (76%);100ML BOTTLE 70 ML IV (18:01)
[2025-07-02] MEDS: SODIUM CHLORIDE 0.9% 10ML SYR (RAD ONLY) 10 ML IV (18:01)
[2025-07-02 18:06] LABS: Bacteria,Urine 1+ /lpf
[2025-07-02] MEDS: MAGNESIUM SULFATE IN WATER 2 GM/50 ML PIGGYBACK IV (18:18)
[2025-07-02 18:22] VITALS: BP 186/94; PULSE 101; RESP 16; O2SAT 96
--- NOTE | 2025-07-02 18:23 | PC.NURSE ---
Bettina Galeano contacted [facility] in regards to transfer of this patient, images powershared and also uploaded through the [facility]. they will call us back.
[2025-07-02 18:30] VITALS: BP 159/81; PULSE 74; RESP 16; O2SAT 95
--- NOTE | 2025-07-02 18:52 | PC.NURSE ---
Report called to Tyron, charge nurse at [facility]
[2025-07-02] MEDS: ACETAMINOPHEN 1,000MG/100ML VIAL 1000 MG IV (19:29)
--- NOTE | 2025-07-02 19:43 | PC.NURSE ---
report given to Paulina with EMS
[2025-07-02 19:54] VITALS: BP 169/101; PULSE 108; RESP 19; TEMP 36.4; O2SAT 94
== END 2025-07-02 19:58 | disposition other institution (70) ==
PROVIDERS: Emergency Provider Student in an Organized Health Care Education/Training Program; PCP Family Medicine
DX: S06.6XAA Traumatic subarachnoid hemorrhage with loss of consciousness status unknown, initial encounter (principal); E83.42 Hypomagnesemia; I10 Essential (primary) hypertension; R00.0 Tachycardia, unspecified; W10.8XXA Fall (on) (from) other stairs and steps, initial encounter; Z87.891 Personal history of nicotine dependence
CPT/HCPCS: 70450; 71045; 71275; 72125; 80053; 81001; 83735; 84484; 85025; 85378; 85610; 93005; 96365; 96375; 99285; 99291; J0131; J3475; Q9967